=== PATIENT | male | born 1975 | race Caucasian/White ===

== ENCOUNTER → 2017-11-30 09:22 | Outpatient (CLI) | payer BC, MEDICAID, SELFPAY ==
[2017-11-30 10:33] LABS: Anion Gap 5 (5-15); BUN 14 mg/dL (7-18); BUN/Creat Ratio 13.3 RATIO (10-20); Calcium,Total 8.3 mg/dL (8.5-10.1); Chloride 111 mmol/L (98-107); Cholesterol 186 mg/dL (200); Creatinine, Serum 1.05 mg/dL (0.70-1.30); EST Glomerular Filtration Rate 82 mL/min (>60); Est Glom Filt Rate - Afr Amer 99 mL/min (>60); Glucose 96 mg/dL (74-106); High Density Lipoprotein 41 mg/dL; Magnesium 1.9 mg/dL (1.6-2.6); Potassium 4.2 mmol/L (3.5-5.1); Sodium Level 140 mmol/L (136-145); T4 Free Direct 0.81 ng/dL (0.76-1.46); Thyroid Stim Hormone (TSH) 0.92 uIU/mL (0.358-3.74); Triglycerides 170 mg/dL; Very Low Density Lipoprotein 34 mg/dL (5-40)
== END ==
PROVIDERS: Family Provider Internal Medicine; PCP Internal Medicine; Visit Provider Internal Medicine
DX: I10 Essential (primary) hypertension (principal); R00.0 Tachycardia, unspecified; E87.8 Other disorders of electrolyte and fluid balance, not elsewhere classified
CPT/HCPCS: 36415; 80048; 80061; 83735; 84439; 84443

== ENCOUNTER → 2018-02-04 16:07 | Outpatient (CLI) | payer BC, MEDICAID, SELFPAY ==
[2018-02-04 17:39] LABS: Anion Gap 8 (5-15); BUN 26 mg/dL (7-18); BUN/Creat Ratio 18.4 RATIO (10-20); Chloride 106 mmol/L (98-107); Creatinine, Serum 1.41 mg/dL (0.70-1.30); EST Glomerular Filtration Rate 58 mL/min (>60); Est Glom Filt Rate - Afr Amer 71 mL/min (>60); Glucose 108 mg/dL (74-106); Potassium 3.8 mmol/L (3.5-5.1); Sodium Level 140 mmol/L (136-145)
== END ==
PROVIDERS: Family Provider Internal Medicine; PCP Internal Medicine; Visit Provider Internal Medicine
DX: I10 Essential (primary) hypertension (principal)
CPT/HCPCS: 36415; 80048

== ENCOUNTER → 2018-02-26 11:17 | Outpatient (CLI) | payer MEDICAID, SELFPAY ==
[2018-02-26 12:28] LABS: Anion Gap 8 (5-15); BUN 22 mg/dL (7-18); BUN/Creat Ratio 18.2 RATIO (10-20); Calcium,Total 9.3 mg/dL (8.5-10.1); Chloride 108 mmol/L (98-107); Creatinine, Serum 1.21 mg/dL (0.70-1.30); EST Glomerular Filtration Rate 70 mL/min (>60); Est Glom Filt Rate - Afr Amer 84 mL/min (>60); Glucose 91 mg/dL (74-106); Potassium 4.3 mmol/L (3.5-5.1); Sodium Level 142 mmol/L (136-145)
== END ==
PROVIDERS: Family Provider Internal Medicine; PCP Internal Medicine; Visit Provider Nurse Practitioner Family
DX: I10 Essential (primary) hypertension (principal)
CPT/HCPCS: 36415; 80048

== ENCOUNTER → 2018-03-12 08:19 | Outpatient (CLI) | payer MEDICAID, SELFPAY ==
[2018-03-12 09:11] LABS: Hemoglobin A1c 6.2 % (4.2-6.3)
== END ==
PROVIDERS: Family Provider Internal Medicine; PCP Internal Medicine; Visit Provider Internal Medicine
DX: R73.03 Prediabetes (principal)
CPT/HCPCS: 36415; 83036

== ENCOUNTER → 2018-03-20 10:15 | Outpatient (CLI) | payer MEDICAID, SELFPAY ==
[2018-03-20 11:10] LABS: Absolute Lymphocyte Count 1.86 X10^3/ul (0.83-4.51); Absolute Neutrophil Count 3.6 X10^3/uL (2.0-7.7); Basophil# 0.05 X10^3/uL; Basophil% 0.8 % (0-1); Eosinophil# 0.22 X10^3/uL; Eosinophils% 3.4 % (0-5); Hematocrit 45.4 % (40-54); Hemoglobin 15.6 g/dl (13.0-16.5); Lymphocyte # 1.86 X10^3/ul (4.0); Lymphocyte % 28.8 % (19-41); Mean Corp Hgb Conc 34.4 g/gl (32-36); Mean Corpuscular Hgb 29.4 pg (27.0-32.0); Mean Corpuscular Volume 85.7 fL (80-94); Mean Platelet Vol. 10.9 fl (6.2-12.0); Monocyte# 0.69 X10^3/uL; Monocyte% 10.7 % (0-10); Neutrophil % 55.8 % (47-70); Platelet Count 273 K/mm3 (150-450); RBC Distribution Width CV 13.3 % (11.6-14.6); RBC Distribution Width SD 41.5 fl (35.1-43.9); White Blood Count 6.5 K/mm3 (4.4-11.0)
[2018-03-20 11:14] LABS: POSITIVE COUNT NO; POSITIVE DIFFERENTIAL NO; POSITIVE MORPHOLOGY NO
[2018-03-20 11:44] LABS: Ferritin 149 ng/mL (26-388); Iron 96 ug/dL (65-175); Iron Binding Capacity,Total 324 ug/dL (250-450)
== END ==
PROVIDERS: Family Provider Internal Medicine; PCP Internal Medicine; Visit Provider Internal Medicine
DX: G25.81 Restless legs syndrome (principal)
CPT/HCPCS: 36415; 82728; 83540; 83550; 85025

== ENCOUNTER 2018-10-30 17:41 | Emergency (ER) | payer OTHER, MEDICAID, SELFPAY ==
[2018-10-30 17:42] VITALS: BP 150/90; PULSE 104; RESP 16; TEMP 36.7; O2SAT 95; BMI 32.5
--- NOTE | 2018-10-30 18:10 | RAD_ITS ---
STUDY: X-RAY - LEFT FOOT CLINICAL: Male, 43 years old. Injury TECHNIQUE: 3 view(s) of the foot. COMPARISON: None. FINDINGS: Normal talus, calcaneus, and tarsal bones. Plantar calcaneal spur. Normal visualized subtalar, talonavicular, calcaneocuboid, tarsal and tarsometatarsal articulations. Normal metatarsi. Normal metatarsophalangeal joint of the great toe. Normal tibial and fibular sesamoid bones. Normal interphalangeal joint of the great toe. Normal phalanges of the great toe. Normal second through fifth metatarsophalangeal joints. Normal interphalangeal joints and phalanges of the lesser toes. The soft tissue structures are unremarkable. RAD/Foot min 3 Views IMPRESSION: No acute bony injury of the foot. Electronically Signed: Naif Delgado DO at 18:26 EDT Tel [phone], Service support ,
[2018-10-30] MEDS: Ibuprofen 400 MG Tablet 800 MG PO (18:11)
--- NOTE | 2018-10-30 18:28 | ED.DCSUM_ITS ---
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 Patient reports that he was at work walking when he stepped on a rock and had a forced dorsiflexion and inversion injury of his left foot. States that he has a sharp pain that is 8 out of 10 with walking and 4-10 at rest. Denies any paresthesias distally. He denies any other injuries. Physical Examination: Vitals: Stable. Afebrile. General: Well-nourished and well-developed. Head: Normocephalic atraumatic. Neck: Supple, no lymphadenopathy. No JVD. Nontender. Cardiovascular: Regular rate and rhythm. No murmurs. Respiratory: No respiratory distress. Clear to auscultation bilaterally. Abdominal: Soft, nontender, nondistended, normal bowel sounds. No guarding, rebound, or peritoneal signs. Back: Nontender. Extremities: No tenderness palpation over the medial or lateral malleoli. No pain over the proximal fibula. He does have moderate tenderness palpation over the base the fifth metatarsal. There is mild diffuse tenderness palpation over the second, third, and fourth metatarsals distally. There is no soft tissue swelling. He has a 2+ dorsalis pedis pulse. Normal sensation light touch. Skin: Normal color, no rash. Neurologic: Alert and oriented ?3. Cranial nerves II through XII are intact. Normal strength and sensation. Psych: Normal affect. Test Results: X-ray is negative. Emergency Department Course and Treatment: Patient was treated with ibuprofen and placed in a walking boot. Treatment Plan: Patient be discharged with limited walking at work. Follow-up with [facility] in 1 week for another exam. Return to the emergency department for any worsening symptoms. Disposition: To home in improved and stable condition. Impression: 1. Left foot sprain. This note was generated with [employer] dictation software. It may contain incorrect words, spelling, and punctuation that were not noted in review of the chart prior to signing ED Disposition - Plan for ED Patient: Disposition: Home or Assisted Living Instructions: ED Sprain Foot Referrals: [facility] [GROUP OF PHYSICIANS] - 1 Week
[2018-10-30 18:53] VITALS: PULSE 85; RESP 17; O2SAT 100
== END 2018-10-30 18:54 | disposition home or self-care (01) ==
LOC: ED 18:11
PROVIDERS: Emergency Provider Emergency Medicine; Family Provider Internal Medicine; PCP Internal Medicine
DX: S93.602A Unspecified sprain of left foot, initial encounter (principal); I10 Essential (primary) hypertension; Z79.82 Long term (current) use of aspirin; Z79.84 Long term (current) use of oral hypoglycemic drugs; Z79.899 Other long term (current) drug therapy; X50.1XXA Overexertion from prolonged static or awkward postures, initial encounter; Y93.01 Activity, walking, marching and hiking; Y92.89 Other specified places as the place of occurrence of the external cause; Y99.0 Civilian activity done for income or pay
CPT/HCPCS: 73630; 99283; A4216

== ENCOUNTER → 2019-04-02 | Outpatient (CLI) | payer MEDICAID, SELFPAY ==
[2019-04-01 16:10] VITALS: BMI 34.0
--- NOTE | 2019-04-02 09:00 | RAD_ITS ---
STUDY: X-RAY - SACRUM/COCCYX REASON FOR EXAM: Male, 44 years old. Pain in sacrum and coccyx TECHNIQUE: 3 view(s) of the sacrum and coccyx were obtained. COMPARISON: None. FINDINGS: There is degenerative arthrosis of the bilateral sacroiliac joints. Intact visualized sacral ala and fused sacral bodies. Unremarkable sacrococcygeal junction with a normal angulation. Intact coccygeal segments. The presacral soft tissue structures are unremarkable. There is no demonstrated fracture. There is no demonstrated destructive osseous process. RAD/Sacrum-Coccyx min 2 Views IMPRESSION: Mild osteoarthritis of bilateral SI joints. No acute displaced fracture, or traumatic subluxation based on current assessment.. Electronically Signed: Shaheen Heart MD at 11:32 EDT Tel [phone], Service support ,
[2019-04-02 09:06] LABS: Absolute Lymphocyte Count 1.72 X10^3/uL (0.83-4.51); Absolute Neutrophil Count 3.7 X10^3/uL (2.0-7.7); Basophil# 0.06 X10^3/uL; Basophil% 0.9 % (0-1); Eosinophil# 0.16 X10^3/uL; Eosinophils% 2.5 % (0-5); Hematocrit 45.4 % (40-54); Lymphocyte # 1.72 X10^3/ul (4.0); Lymphocyte % 26.8 % (19-41); Mean Corpuscular Hgb 29.1 pg (27.0-32.0); Mean Platelet Vol. 10.4 fl (6.2-12.0); Monocyte# 0.75 X10^3/uL; Monocyte% 11.7 % (0-10); NRBC Flagged by Analyzer 0 % (0-5); Neutrophil # 3.72 X10^3/uL (2.7-7.7); Neutrophil % 57.9 % (47-70); Platelet Count 267 K/mm3 (150-450); RBC Distribution Width CV 13.1 % (11.6-14.6); RBC Distribution Width SD 42.3 fl (35.1-43.9); Red Blood Count 5.16 M/mm3 (4.6-6.2); White Blood Count 6.4 K/mm3 (4.4-11.0)
[2019-04-02 09:37] LABS: AST(SGOT) 24 U/L (15-37); Alanine Aminotransfer ALT/SGPT 41 U/L (16-61); Albumin, Serum 3.8 g/dL (3.2-5.0); Alkaline Phosphatase 94 U/L (45-117); Anion Gap 7 (5-15); BUN 18 mg/dL (7-18); BUN/Creat Ratio 15.8 RATIO (10-20); Calcium,Total 8.7 mg/dL (8.5-10.1); Chloride 111 mmol/L (98-107); Cholesterol 206 mg/dL (200); Creatinine, Serum 1.14 mg/dL (0.70-1.30); EST Glomerular Filtration Rate 74 mL/min (>60); Est Glom Filt Rate - Afr Amer 90 mL/min (>60); Globulin 3.7 g/dL (2.2-4.2); Glucose 96 mg/dL (74-106); High Density Lipoprotein 46 mg/dL; Potassium 4.4 mmol/L (3.5-5.1); Protein, Total 7.5 g/dL (6.4-8.2); Sodium Level 141 mmol/L (136-145); Triglycerides 118 mg/dL; Very Low Density Lipoprotein 24 mg/dL (5-40)
== END | disposition home or self-care (01) ==
LOC: LAB 08:49
PROVIDERS: Family Provider Internal Medicine; PCP Internal Medicine; Referring Provider Internal Medicine; Visit Provider Internal Medicine
DX: M54.9 Dorsalgia, unspecified (principal); E78.5 Hyperlipidemia, unspecified; I10 Essential (primary) hypertension
CPT/HCPCS: 36415; 72220; 80053; 80061; 85025

== ENCOUNTER 2019-05-24 20:45 | Emergency (ER) | payer MEDICAID, SELFPAY ==
[2019-04-01 16:10] VITALS: BMI 34.0
[2019-05-24 20:46] VITALS: BP 152/93; PULSE 98; RESP 16; TEMP 36.7; O2SAT 96; BMI 34.2
--- NOTE | 2019-05-24 21:04 | RAD_ITS ---
STUDY: X-RAY - BILATERAL RIBS WITH CHEST REASON FOR EXAM: Male, 44 years old. Right upper rib injury. TECHNIQUE - RIBS: 4 view(s) of the ribs. TECHNIQUE - CHEST: Single PA view of the chest. COMPARISON: None. FINDINGS: Cardiac silhouette unremarkable. Pulmonary vascularity unremarkable. Aorta unremarkable. No focal patchy airspace opacities. No pleural effusions. Minimal atelectasis/scar. Constipation. No acute displaced fracture or dislocation. No pneumothorax. RAD/Ribs Oleksandr Min 4V w/PA Chest IMPRESSION: No acute displaced fracture No acute cardiopulmonary findings Electronically Signed: Clint Putnam DO at 22:23 EDT Tel , Service support ,
--- NOTE | 2019-05-24 22:00 | ED.DCSUM_ITS ---
- ER Visit Summary Date of Service: 05/24/19 Chief Complaint: Right rib pain History of Present Illness: The patient is a 44 M who presents with right rib pain that began today. Patient states he was playing football when he fell onto his right side. Patient states his right elbow was tucked under his arm and his chest landed on his forearm and elbow. Patient denies any snapping or popping sensation. Patient states the pain is worse with certain movements and with walking. Patient states the pain improves with rest. Patient describes the pain as a constant aching but sharp at times. Patient denies any head injury or loss of consciousness. Patient denies any paresthesias or weakness. Patient denies any other injuries. Patient denies any shortness of breath. Physical Examination: Vital signs are stable. Patient is afebrile. Patient is in no acute distress. Oral mucosa is pink and moist. Neck is supple. Trachea is midline. Is no JVD noted. Heart was regular rate and rhythm. Lungs are clear and equal bilaterally. There is tenderness over the right fourth through eighth ribs. There is no bony crepitance or step-off noted. Abdomen is soft. Bowel sounds are normal. There is no tenderness. Cranial nerves II through XII are intact. There are no focal motor or sensory deficits noted. Test Results: X-rays of the ribs were obtained. There is no acute fracture. These were interpreted by the radiologist and reviewed by myself. Emergency Department Course and Treatment: Patient was instructed to use Tylenol or ibuprofen as needed for pain. Patient was instructed to take 10-15 deep breaths every hour while awake to prevent atelectasis and pneumonia. Patient was instructed to use ice to the area. Patient was instructed to follow-up with his primary care physician in 5 to 7 days. Patient understood and was agreeable with the plan. All questions were answered. Disposition: Discharge home Impression: Right chest wall contusion This note was generated with [employer] dictation software. It may contain incorrect words, spelling, and punctuation that were not noted in review of the chart prior to signing ED Disposition - Plan for ED Patient: Disposition: Home or Assisted Living Diagnosis: Contusion of right chest wall Instructions: Chest Wall Contusion Referrals: Sanjiv Singleton MD [Primary Care Provider] - 5-7 Days
[2019-05-24 22:44] VITALS: BP 156/104; PULSE 90; RESP 20; O2SAT 97
== END 2019-05-24 22:45 | disposition home or self-care (01) ==
PROVIDERS: Emergency Provider Emergency Medicine; Family Provider Internal Medicine; PCP Internal Medicine
DX: S20.211A Contusion of right front wall of thorax, initial encounter (principal); W19.XXXA Unspecified fall, initial encounter; Y93.61 Activity, american tackle football; Y92.9 Unspecified place or not applicable; I10 Essential (primary) hypertension; G25.81 Restless legs syndrome; Z79.82 Long term (current) use of aspirin; Z79.899 Other long term (current) drug therapy
CPT/HCPCS: 71111; 99282

== ENCOUNTER → 2019-06-18 17:23 | Outpatient (CLI) | payer MEDICAID, SELFPAY ==
[2019-06-11 17:27] VITALS: BMI 33.5
--- NOTE | 2019-06-18 17:25 | RAD_ITS ---
STUDY: X-RAY - RIGHT FOOT CLINICAL: Male, 44 years old. Dorsal pain for 2 weeks. TECHNIQUE: 2 view(s) of the foot. COMPARISON: None. FINDINGS: Normal talus, calcaneus, and tarsal bones. Normal visualized subtalar, talonavicular, calcaneocuboid, tarsal and tarsometatarsal articulations. Normal metatarsi. There is degenerative arthrosis of the metatarsophalangeal joint of the hallux with a hallux valgus deformity. Normal tibial and fibular sesamoid bones. Normal interphalangeal joint of the great toe. Normal phalanges of the great toe. Normal second through fifth metatarsophalangeal joints. Question mild lateral subluxation of the second distal interphalangeal joint. Otherwise normal interphalangeal joints and phalanges of the lesser toes. The soft tissue structures are unremarkable. RAD/Foot 2 Views IMPRESSION: Degenerative changes of first metatarsal-phalangeal joint. Electronically Signed: Aj Kovacs DO at 18:51 EST Tel [phone], Service support ,
== END ==
PROVIDERS: Family Provider Internal Medicine; PCP Internal Medicine; Referring Provider Internal Medicine; Visit Provider Internal Medicine
DX: M79.671 Pain in right foot (principal); M54.9 Dorsalgia, unspecified
CPT/HCPCS: 73620; 97110

== ENCOUNTER → 2019-07-15 12:53 | Outpatient (CLI) | payer MEDICAID, SELFPAY ==
[2019-07-02 09:33] VITALS: BMI 33.6
--- NOTE | 2019-07-15 12:55 | ECHOCS_ITS ---
Reason For Study: ARRHYTHMIA Procedure This was a 2D Doppler, Color Flow transthoracic echocardiogram. The study was technically difficult. Due to body habitus. Contrast injection was performed. Exam performed in department. Left Ventricle Normal LV size. Left ventricular systolic function is normal. The estimated ejection fraction is 65 %. No evidence for diastolic dysfunction. No regional wall motion abnormalities noted. Right Ventricle Normal RV size. Normal systolic function. Atria The left atrium is mildly enlarged. Normal right atrium. No doppler evidence for ASD. Mitral Valve There is no mitral annular calcification. Normal mitral valve. Trivial mitral valve insufficiency. Tricuspid Valve Normal tricuspid valve. Trivial tricuspid valve insufficiency. Right ventricular systolic pressure estimated to be 27 mmHg. Aortic Valve Trisinus/trileaflet aortic valve. Normal aortic valve. Pulmonic Valve The pulmonic valve is not well visualized. Great Vessels Normal sized aortic root. Pericardium/Pleural No pericardial effusion. Medication 22 gauge I.V. with prn adaptor inserted into right arm. Diluted definity 3.0ml given slow IV push to enhance endocardial definition. MMode/2D Measurements & Calculations LVIDd: 4.2 cm IVSd: 1.2 cm Ao root diam: 3.2 cm LVIDs: 2.6 cm LVPWd: 1.1 cm RVDd: 3.7 cm FS: 36.7 % LAV(MOD-bp): 64.1 ml LA A4 area: 21.4 cm2 LA dimension(2D): 4.1 cm LAV(MOD-bp) Indexed: 25.7 ml/m2 LAV(MOD-sp2): 65.4 ml LAV(MOD-sp4): 64.6 ml RA A4 area: 19.2 cm2 Time Measurements MV dec time: 0.19 sec Doppler Measurements & Calculations MV E max bird: 83.7 cm/sec Lat Peak E' Bird: 10.0 cm/sec Med Peak E' Bird: 6.3 cm/sec MV A max bird: 71.9 cm/sec E/E' lat: 8.4 E/E' med: 13.2 MV E/A: 1.2 Ao V2 max: 142.9 cm/sec LV V1 max: 104.3 cm/sec PA V2 max: 94.1 cm/sec Ao max P.2 mmHg LV V1 max P.4 mmHg TR max bird: 246.3 cm/sec TR max P.3 mmHg Interpretation Summary The study was technically difficult. Contrast injection was performed. Left ventricular systolic function is normal. The estimated ejection fraction is 65 %. The left atrium is mildly enlarged. Trivial mitral valve insufficiency. Trivial tricuspid valve insufficiency. Right ventricular systolic pressure estimated to be 27 mmHg. No evidence for diastolic dysfunction. Ordering Physician: Galileo Samaniego Referring Physician: Sanjiv Singleton Performed By: Madelyn Bowling, OLIVIA, RVT
== END ==
PROVIDERS: Family Provider Internal Medicine; PCP Internal Medicine; Referring Provider Internal Medicine Cardiovascular Disease; Visit Provider Internal Medicine Cardiovascular Disease
DX: R00.2 Palpitations (principal); R00.0 Tachycardia, unspecified; E78.2 Mixed hyperlipidemia; I10 Essential (primary) hypertension
CPT/HCPCS: 93225; 93226; 93306; Q9957; A4216; C8929

== ENCOUNTER 2019-07-28 16:00 | Outpatient (RCR) | payer MEDICAID, SELFPAY ==
[2019-04-01 16:10] VITALS: BMI 34.0
[2019-06-03 14:27] VITALS: BMI 34.2
--- NOTE | 2019-06-04 18:16 | HP.PTEVAL ---
Patient's Visit Information PASTOR JOHNSNO is a 44 year old M referred to Physical Therapy by Sanjiv Singleton MD with a diagnosis of DORSALGIA. Date of Evaluation: 06/04/19 Physical Therapist: Tee Anderson PT, Cert MDT, OCS - Visit Plan Frequency: 2x /Week Duration: 4 Weeks Plan: PT INTERVENTION MIGUEL ANGEL EX'S ,POSTURAL EX'S ,PROGRESS TO DLS, LE FLEXABLITY MODALTIES PRN - Subjective Findings: This 44 y/o male presents to physical therapy with back pain.Patient has back pain several months back in January. Patient developed pain symmrical LB region. Seen Dr joshua ennis.Patient had x-rays DDD. Aggravating factors sitting,end of day bending. Alleveting factors walking ,standing. Denies parathesia/tingling. Coughing/sneezing -. Bowel/bladder -. No trauma -.No prior treatment. Patient sleeping okay. Patient affects job demands,housework chores ,ADL'S, Patient intense with deriving any period of time. Patient pain affects QOL. SOCIAL: . VOCATION: [employer] - Pain Bilateral Back Pain Intensity (Out of 10): 2 Pain Intensity Range: 10 - Objective POSTURE: mild foward posture. GAIT: reciprocal pattern. NEURO: denies parathesia/tingling ,reflexes L3-4,L4-5,L5-S1 2/3. STMMTRIES: align. MMT: quads/hams/hip/ankle 4/5. LUMBAR ROM: flexion min loss ,extension min loss .side glides min loss. FLEXABLITY: hams mild tight - Special Tests L/S Slump test left side: Negative L/S Slump test right side: Negative L/S Left Straight Leg Raise: Negative L/S Right Straight Leg Raise: Negative Lumbar Standing: Flexion - Mechanical Response: No effect Lumbar Standing: Flexion - Symptoms During Testing: No effect Lumbar Standing: Flexion - Symptoms After Testing: No effect Lumbar Standing: Extension - Mechanical Response: No effect Lumbar Standing: Extension - Symptoms During Testing: Decreases Lumbar Standing: Extension - Symptoms After Testing: Better Lumbar Standing: Right Side Glides - Mechanical Response: No effect Lumbar Standing: Right Side Walton - Symptoms During Testing: No effect Lumbar Standing: Right Side Walton - Symptoms After Testing: No effect Lumbar Standing: Left Side Walton - Mechanical Response: No effect Lumbar Standing: Left Side Walton - Symptoms During Testing: No effect Lumbar Standing: Left Side Walton - Symptoms After Testing: No effect Lumbar Lying: Flexion - Mechanical Response: No effect Lumbar Lying: Flexion - Symptoms During Testing: Increases Lumbar Lying: Flexion - Symptoms After Testing: Worse Lumbar Lying: Extension - Mechanical Response: No effect Lumbar Lying: Extension - Symptoms During Testing: Decreases Lumbar Lying: Extension - Symptoms After Testing: Better - Goals Goal 1:: Independant with HEP. Goal Time Frame: 4-6 Weeks Goal 2:: Improve posture/body mechanics with job demands. Goal Time Frame: 4-6 Weeks Goal 3:: Patient to decrease low bcak pain by 70 % or > to improve QOL. Goal Time Frame: 4-6 Weeks Goal 4:: Patient to increase lumbar ROM for function of recovery. Goal Time Frame: 4-6 Weeks Goal 5:: Patient to be d/c to prophalaxis Goal Time Frame: 4-6 Weeks Goal 6:: Pateint to improve back owestry scor by 5 points vor > to improve QOL. Goal Time Frame: 4-6 Weeks - Rehabilitation Potential Physical Therapy Diagnosis: This patient has possible central derrangement with pain affects sitting ,driving,elevation from chair correction of posture better,and extension thus benofit from skilled PT. Rehabilitation Potential: Good - Anticipated Interventions Patient/Client Instruction: Educate patient on: Condition, Plan of Care For the Purpose of:: To decrease pain, To increase ROM, To improve muscle performance and motor function, To improve ability to perform ADL's, To increase tolerance to activity/condition/position, To improve ability of physical actions for home/community/work/leisure, To improve health of tissue, To decrease soft tissue restriction, To reduce risk of recurrence, To improve ability to perform tasks related to life management Therapeutic Exercise to Include: Strength training, Body mechanics, Postural training, Flexibilty training, Dynamic Lumbar Stabilization, Miguel Angel Exercises For the Purpose of:: To decrease pain, To increase ROM, To improve muscle performance and motor function, To improve ability to perform ADL's, To increase tolerance to activity/condition/position, To improve ability of physical actions for home/community/work/leisure, To improve health of tissue, To decrease soft tissue restriction, To increase flexibility/ROM, To reduce risk of recurrence Manual Therapy Techniques to Include: Mobilization Comment: lumbar For the Purpose of:: To decrease pain, To increase ROM TENS: Yes IF ES: Yes Cryotherapy (ice pack, ice massage): Yes Ultrasound (thermal/non thermal): Yes For the Purpose of:: To decrease pain, To increase ROM, To improve muscle performance and motor function, To improve ability to perform ADL's, To improve health of tissue, To decrease soft tissue restriction Thank you for the opportunity to evaluate your patient. For Medicare and Medicare HMO plans, please review the plan of care and approve it. It will need to be FAXED BACK to us at [phone] for Medicare purposes. For Medicare only, by signing this I certify the plan of care. Please let me know if there are questions or concerns regarding this plan of care. Physician Signature: Date:
--- NOTE | 2019-11-11 15:46 | HP.PT.NRP ---
PASTOR JOHNSON was seen in my office for initial evaluation on 06/04/19. The following Plan of Care was established for this patient: Initial Frequency: 2x /Week Initial Duration: 4 Weeks Patient/Client Instruction: Educate patient on: Condition, Plan of Care For the Purpose of:: To decrease pain, To increase ROM, To improve muscle performance and motor function, To improve ability to perform ADL's, To increase tolerance to activity/condition/position, To improve ability of physical actions for home/community/work/leisure, To improve health of tissue, To decrease soft tissue restriction, To reduce risk of recurrence, To improve ability to perform tasks related to life management Therapeutic Exercise to Include: Strength training, Body mechanics, Postural training, Flexibilty training, Dynamic Lumbar Stabilization, Loyd Exercises For the Purpose of:: To decrease pain, To increase ROM, To improve muscle performance and motor function, To improve ability to perform ADL's, To increase tolerance to activity/condition/position, To improve ability of physical actions for home/community/work/leisure, To improve health of tissue, To decrease soft tissue restriction, To increase flexibility/ROM, To reduce risk of recurrence Manual Therapy Techniques to Include: Mobilization Comment: lumbar For the Purpose of:: To decrease pain, To increase ROM TENS: Yes IF ES: Yes Cryotherapy (ice pack, ice massage): Yes Ultrasound (thermal/non thermal): Yes For the Purpose of:: To decrease pain, To increase ROM, To improve muscle performance and motor function, To improve ability to perform ADL's, To improve health of tissue, To decrease soft tissue restriction This patient was last seen in our office 07/28/20. Pertinent comments regarding their Physical therapy will appear below: This patient seen for dorsalgia back pain focusing DLS ,postural ex's ,BLE flexablity. Patient doing better . At this point I will be discontinuing this patient from physical therapy. I would be happy to see this patient again in the future if found appropriate by the physician. Thank you! Tee Anderson, PT, Cert MDT, OCS
== END 2019-07-28 19:00 | disposition home or self-care (01) ==
LOC: PT 16:00
PROVIDERS: Family Provider Internal Medicine; PCP Internal Medicine; Referring Provider Internal Medicine; Visit Provider Internal Medicine
DX: M54.9 Dorsalgia, unspecified (principal)
CPT/HCPCS: 97110; 97161; 97530

== ENCOUNTER → 2019-09-11 13:13 | Outpatient (CLI) | payer MEDICAID, SELFPAY ==
[2019-08-26 15:52] VITALS: BMI 34.2
[2019-09-03 16:55] VITALS: BMI 33.8
--- NOTE | 2019-09-11 13:14 | STEWCON_ITS ---
Reason For Study: DYSPNEA/SOB Stress Results Protocol: Rao Protocol WITH DEFINITY Maximum Predicted HR: 176 bpm Target HR: 150 bpm % Maximum Predicted HR: 88 % DurationHeart Rate Stage (mm:ss) (bpm) BP Comment BASELINE 81 132/78 STAGE 1 3:00 103 140/98 STAGE 2 3:00 115 152/82 STAGE 3 3:00 136 158/80 STAGE 4 1:30 155 / RECOVERY 107 144/845 CC DEFINITY Stress Duration: 10:30 mm:ss Maximum Stress HR: 155 bpm METS: 13 Baseline Echocardiogram Findings Stress Echo Wall motion Data Resting WM Intermediate WM Stress WM Resting Wall Motion Wall Motion Stress All segments Normal. All segments Hyperkinetic. Ejection Fraction 55 %. Ejection Fraction 70 %. Stress Results Heart rate response: Normal Blood pressure response: Normal resting blood pressure-appropriate response Arrhythmias: None Functional capacity: Good Stopped secondary to: Dyspnea. EKG Data The baseline ECG displays normal sinus rhythm. Peak exercise ECG: No obvious ECG changes. Symptoms with Stress No complaint of chest discomfort during exercise or recovery. Interpretation Summary Negative (Adequate) stress echocardiogram Negative (adequate (ECG exercise tolerance test Contrast injection performed Ordering Physician: Franklin Manjarrez Referring Physician: Franklin Manjarrez Performed By: Hannah Castaneda RDCS, RVT
== END ==
PROVIDERS: PCP Internal Medicine; Referring Provider Nurse Practitioner Family; Visit Provider Nurse Practitioner Family
DX: R06.09 Other forms of dyspnea (principal); I20.8 Other forms of angina pectoris; E66.9 Obesity, unspecified; R00.0 Tachycardia, unspecified; I49.9 Cardiac arrhythmia, unspecified; R73.03 Prediabetes; I10 Essential (primary) hypertension; E78.2 Mixed hyperlipidemia
CPT/HCPCS: 93017; 93350; Q9957; A4216; C8928

== ENCOUNTER → 2020-03-23 17:27 | Outpatient (CLI) | payer MEDICAID, SELFPAY ==
[2020-03-16 18:05] VITALS: BMI 33.6
[2020-03-23 18:21] LABS: Anion Gap 6 (5-15); BUN 28 mg/dL (7-18); BUN/Creat Ratio 21.7 RATIO (10-20); Calcium,Total 8.8 mg/dL (8.5-10.1); Chloride 107 mmol/L (98-107); Creatinine, Serum 1.29 mg/dL (0.70-1.30); EST Glomerular Filtration Rate 64 mL/min (>60); Est Glom Filt Rate - Afr Amer 78 mL/min (>60); Glucose 91 mg/dL (74-106); Potassium 3.9 mmol/L (3.5-5.1); Sodium Level 139 mmol/L (136-145)
== END ==
PROVIDERS: PCP Internal Medicine; Referring Provider Internal Medicine; Visit Provider Internal Medicine
DX: I10 Essential (primary) hypertension (principal)
CPT/HCPCS: 36415; 80048

== ENCOUNTER → 2020-04-27 12:52 | Outpatient (CLI) | payer MEDICAID, SELFPAY ==
[2020-04-22 15:28] VITALS: BMI 34.6
== END ==
PROVIDERS: PCP Internal Medicine; Referring Provider Internal Medicine Cardiovascular Disease; Visit Provider Internal Medicine Cardiovascular Disease
DX: R55 Syncope and collapse (principal); R00.0 Tachycardia, unspecified
CPT/HCPCS: 93225; 93226

== ENCOUNTER → 2020-10-13 17:30 | Outpatient (CLI) | payer MEDICAID, SELFPAY ==
[2020-10-13 16:05] VITALS: BMI 37.1
[2020-10-13 17:47] LABS: Absolute Lymphocyte Count 2.21 X10^3/uL (0.83-4.51); Absolute Neutrophil Count 4.8 X10^3/uL (2.0-7.7); Basophil# 0.09 X10^3/uL; Basophil% 1.1 % (0-1); Eosinophil# 0.24 X10^3/uL; Eosinophils% 2.9 % (0-5); Hematocrit 44.4 % (40-54); Hemoglobin 14.3 g/dL (13.0-16.5); Lymphocyte # 2.21 X10^3/ul (4.0); Lymphocyte % 26.7 % (19-41); Mean Corp Hgb Conc 32.2 g/dL (32-36); Mean Corpuscular Hgb 28.7 pg (27.0-32.0); Mean Platelet Vol. 10.4 fl (6.2-12.0); Monocyte% 10.9 % (0-10); NRBC Flagged by Analyzer 0 % (0-5); Platelet Count 265 K/mm3 (150-450); RBC Distribution Width CV 13.2 % (11.6-14.6); RBC Distribution Width SD 43.1 fl (35.1-43.9); Red Blood Count 4.99 M/mm3 (4.6-6.2); White Blood Count 8.3 K/mm3 (4.4-11.0)
[2020-10-13 18:24] LABS: AST(SGOT) 25 U/L (15-37); Alanine Aminotransfer ALT/SGPT 60 U/L (16-61); Albumin, Serum 3.7 g/dL (3.2-5.0); Alkaline Phosphatase 87 U/L (45-117); Anion Gap 4 (5-15); BUN 24 mg/dL (7-18); BUN/Creat Ratio 22.4 RATIO (10-20); Calcium,Total 8.7 mg/dL (8.5-10.1); Chloride 111 mmol/L (98-107); Cholesterol 146 mg/dL (200); Creatinine, Serum 1.07 mg/dL (0.70-1.30); EST Glomerular Filtration Rate 79 mL/min (>60); Est Glom Filt Rate - Afr Amer 96 mL/min (>60); Globulin 3.6 g/dL (2.2-4.2); Glucose 88 mg/dL (74-106); High Density Lipoprotein 36 mg/dL; Potassium 3.9 mmol/L (3.5-5.1); Protein, Total 7.3 g/dL (6.4-8.2); Sodium Level 141 mmol/L (136-145); Triglycerides 209 mg/dL; Uric Acid 5.9 mg/dL (3.5-7.2); Very Low Density Lipoprotein 42 mg/dL (5-40)
== END ==
PROVIDERS: PCP Internal Medicine; Referring Provider Internal Medicine; Visit Provider Internal Medicine
DX: I10 Essential (primary) hypertension (principal); M10.9 Gout, unspecified
CPT/HCPCS: 36415; 80053; 80061; 84550; 85025

== ENCOUNTER → 2020-10-28 | Outpatient (CLI) | payer MEDICAID, SELFPAY ==
[2020-06-23 16:52] VITALS: BMI 34.2
[2020-10-20 10:44] VITALS: BMI 35.9
--- NOTE | 2020-10-28 16:49 | CT_ITS ---
STUDY: CT PARANASAL SINUSES REASON FOR EXAM: Male, 45 years old. Sinusitis RADIATION DOSAGE (If Supplied By Facility): CTDIvol = ( 33.06 ) mGy, DLP = ( 829.72 ) mGycm TECHNIQUE: Axial CT images of the paranasal sinuses were obtained. Multiplanar reconstructions. The protocol utilizes one or more of the following dose reduction techniques: automated exposure control, adjustment of mA and/or kV according to patient size, and/or use of iterative reconstruction technique. reconstructed. Individualized dose optimization techniques were used for this CT. COMPARISON: 07/23/2017 FINDINGS: Post Surgical Changes: None. Frontal Sinus and Recess: Normal aeration without mucosal inflammatory disease. Ethmoidal Sinuses: Normal aeration without mucosal inflammatory disease. Maxillary Sinuses: Mucosal thickening of the floor the maxillary sinuses consistent with chronic sinusitis. Ostiomeatal Complex: Clear. Sphenoid Sinus: Normal aeration without mucosal inflammatory disease. Sphenoethmoidal Recess: Clear. Nasal Turbinate (Right): Middle Turbinate (Right): Normal. Middle Turbinate (Left): Vivi bullosa of the left middle turbinate. Inferior Turbinate (Right): Normal. Inferior Turbinate (Left): Normal. Nasal Septum: Midline. Nasal Airway: Clear. Cribiform Plate / Anterior Cranial Fossa: Normal. Orbits: Normal. CT/Sinus/Facial Bone IMPRESSION: Bilateral chronic maxillary sinusitis. Patent ostiomeatal units bilaterally. Electronically Signed: Rex Fontenot MD at 14:01 EDT Tel , Service support ,
== END | disposition home or self-care (01) ==
LOC: CT 16:48
PROVIDERS: PCP Internal Medicine; Referring Provider Otolaryngology; Visit Provider Otolaryngology
DX: J32.9 Chronic sinusitis, unspecified (principal)
CPT/HCPCS: 70486

== ENCOUNTER → 2020-10-31 13:19 | Outpatient (CLI) | payer MEDICAID, SELFPAY ==
[2020-10-20 10:44] VITALS: BMI 35.9
[2020-10-31 14:47] LABS: Uric Acid 6.2 mg/dL (3.5-7.2)
== END ==
PROVIDERS: PCP Internal Medicine; Referring Provider Internal Medicine; Visit Provider Internal Medicine
DX: M10.9 Gout, unspecified (principal)
CPT/HCPCS: 36415; 84550

== ENCOUNTER → 2020-11-24 16:32 | Outpatient (CLI) | payer MEDICAID, SELFPAY ==
[2020-11-07 16:07] VITALS: BMI 35.7
[2020-11-24 17:22] LABS: Anion Gap 2 (5-15); BUN 18 mg/dL (7-18); BUN/Creat Ratio 13.7 RATIO (10-20); Calcium,Total 9.3 mg/dL (8.5-10.1); Chloride 108 mmol/L (98-107); Creatinine, Serum 1.31 mg/dL (0.70-1.30); EST Glomerular Filtration Rate 63 mL/min (>60); Est Glom Filt Rate - Afr Amer 76 mL/min (>60); Glucose 79 mg/dL (74-106); Sodium Level 140 mmol/L (136-145)
== END ==
PROVIDERS: PCP Internal Medicine; Referring Provider Otolaryngology; Visit Provider Otolaryngology
DX: Z01.812 Encounter for preprocedural laboratory examination (principal)
CPT/HCPCS: 36415; 80048

== ENCOUNTER → 2020-11-25 15:54 | Outpatient (CLI) | payer MEDICAID, SELFPAY ==
[2020-11-07 16:07] VITALS: BMI 35.7
== END ==
PROVIDERS: PCP Internal Medicine; Referring Provider Otolaryngology; Visit Provider Otolaryngology
DX: Z03.818 Encounter for observation for suspected exposure to other biological agents ruled out (principal); Z11.59 Encounter for screening for other viral diseases
CPT/HCPCS: 87635; U0002

== ENCOUNTER → 2020-11-29 | Outpatient (CLI) | payer MEDICAID, SELFPAY ==
[2020-11-07 16:07] VITALS: BMI 35.7
--- NOTE | 2020-11-29 10:55 | NASAL_PTH ---
PATIENT: PASTOR JOHNSON LOC: [facility] U#:[id number] AGE/SX: 45/M ROOM: RE11/29/[address]: Dr. Kalen Combs MD : 1975 BED: DIS: 11/29/2020 SPEC #: [id number] RECD: 11/29/20 15:20 STATUS: ANGELA REQ #: [id number] JAY: 11/29/20 10:[address]: Kalen Combs DEPT: SURGICAL PATHOLOGY RECD BY: Maru Russell ENTERED: 11/30/20 10:51 SP TYPE: NASAL SPEC OTHR DR: Dr. Sanjiv Singleton MD [facility] Tissues: A - Ethmoid sinus, NOS B - Ethmoid sinus, NOS Procedures: Decalcification bone/plaque Surgery Specimen Level IV HEADER OPERATION: Functional endoscopic sinus surgery, septoplasty PRE-OP DIAGNOSIS: Deviated nasal septum, chronic sinusitis TISSUE SUBMITTED: A - Right sinus contents, B - Left sinus contents MICROSCOPIC DIAGNOSIS A. Right sinus contents: Fragments of respiratory mucosa with mild chronic inflammation, turbinate and bone. B. Left sinus contents: Fragments of respiratory mucosa with mild chronic inflammation, turbinate and bone. SJ:jade 12/02/2020 MICROSCOPIC DESCRIPTION Slides are reviewed. GROSS DESCRIPTION A - Received in fixative is one container labeled with the patient's name and designated right sinus contents. The specimen consists of multiple irregular fragments of bone and adherent pink-eagle soft tissue that in aggregate measure 5 x 3 x 0.2 cm. The specimen is totally submitted in two cassettes after decalcification. B - Received in fixative is one container labeled with the patient's name and designated right sinus contents. The specimen consists of multiple irregular fragments of bone and adherent pink-eagle soft tissue that in aggregate measure 5 x 3 x 0.2 cm. The specimen is totally submitted in two cassettes after decalcification. / AM:jade 11/30/20 TC:3 CPT: 55865 x2, 69560 x2
== END | disposition home or self-care (01) ==
LOC: LABSPEC 15:43
PROVIDERS: PCP Internal Medicine; Referring Provider Otolaryngology; Visit Provider Otolaryngology
DX: J34.2 Deviated nasal septum (principal); J32.8 Other chronic sinusitis
CPT/HCPCS: 88305; 88311

== ENCOUNTER → 2021-01-02 | Outpatient (CLI) | payer MEDICAID, SELFPAY ==
[2020-11-07 16:07] VITALS: BMI 35.7
== END | disposition home or self-care (01) ==
PROVIDERS: PCP Internal Medicine; Visit Provider Otolaryngology
DX: J32.9 Chronic sinusitis, unspecified (principal)
CPT/HCPCS: 87070; 87077; 87186; 87205

== ENCOUNTER 2021-05-23 18:03 | Emergency (ER) | payer MEDICAID, SELFPAY ==
[2021-05-23 18:04] VITALS: BP 129/95; PULSE 108; RESP 16; TEMP 36.7; O2SAT 96; BMI 35.2
--- NOTE | 2021-05-23 18:11 | EDS_ITS ---
HPI History of Present Illness Chief Complaint: Male Pain/Injury Narrative Narrative: 46-year-old male presenting with right testicular pain. He states this started today. He does note that he had some intermittent nausea over the last couple of days. He was seen by his primary care provider yesterday and he states that nothing was done. He was not prescribed nausea medicine. Today he noticed sharp pain in the back of his testicle and points to where his epididymis is. He denies dysuria or urethral drainage. He denies high risk sexual activity. He is and monogamous. Denies any trauma. He does not have any flank pain or hematuria [facility] Medical History Arrhythmia Essential hypertension Gout Mixed hyperlipidemia Obesity Prediabetes Tachycardia Home Medications aspirin 81 mg tablet,delayed release 81 mg PO QDAY #30 tab 10/11/17 [Rx Last Taken Unknown] multivitamin,my-rgtd-nidteavs 1 tab PO DAILY 03/16/20 [History Last Taken Unknown] omeprazole 40 mg capsule,delayed release 40 mg PO DAILY #90 cap 09/08/20 [Rx Last Taken Unknown] gabapentin 300 mg capsule 300 mg PO QHS #90 cap 10/04/20 [Rx Last Taken Unknown] pramipexole 0.5 mg tablet 0.75 mg PO QHS 90 Days #135 tab 10/14/20 [Rx Last Taken Unknown] allopurinol 100 mg tablet 300 mg PO DAILY 30 Days #90 tab 12/30/20 [Rx Last Taken Unknown] hydrochlorothiazide 25 mg tablet 25 mg PO QAM #30 tab 05/15/21 [Rx Last Taken Unknown] diltiazem HCl 300 mg capsule,24 hr,extended release 300 mg PO QDAY #90 cap 05/16/21 [Rx Last Taken Unknown] gabapentin 100 mg capsule 100 mg PO QHS #90 cap 05/22/21 [Rx Last Taken Unknown] lisinopril 40 mg tablet 40 mg PO QDAY #90 tab 05/22/21 [Rx Last Taken Unknown] meloxicam 15 mg tablet 15 mg PO DAILY #30 tab 05/22/21 [Rx Last Taken Unknown] methylprednisolone 4 mg tablets in a dose pack See Rx Instructions PO PER PKG DIR #21 tab 05/22/21 [Rx Last Taken Unknown] Allergy/AdvReac Type Severity Reaction Status Date / Time colchicine AdvReac Severe Emesis Verified 05/23/21 18:04 Family History Mother Hypertension Grandfather Heart disease Myocardial infarction, Onset Age: 62 Grandmother Hypertension Heart disease Father Liver failure Surgical History History of hernia repair History of sinus surgery Social History Smoking Status: Never smoker alcohol intake: current alcohol intake frequency: holidays/special occasions only substance use type: does not use caffeine: Yes Type: coffee Number of servings: 2 and tea Number of servings: 2 what type of physical activity do you participate in: walking frequency: 1-2 times per week ROS ROS ED Constitutional Constitutional ED: Denies chills or fever(s) Eyes Eyes: Denies blurry vision or change in vision ENT ENT ED: Denies rhinorrhea or sore throat Cardiovascular Cardiovascular: Denies chest pain or palpitations Respiratory/Chest Respiratory/Chest: Denies cough, dyspnea or sputum Gastrointestinal Gastrointestinal: Reports nausea; Denies constipation, diarrhea or vomiting Genitourinary Genitourinary ED: Reports other Details: Right testicular pain ; Denies dysuria or hematuria Musculoskeletal Musculoskeletal: Denies arthralgias, back pain or myalgias Integumentary Denies rash EXAM Physical Exam Const Vital Signs: 05/23/21 18:04 Temperature 98.1 F Temperature Source Temporal Pulse Rate 108 H Respiratory Rate 16 Blood Pressure 129/95 H Blood Pressure Mean 106 Pulse Ox 96 Oxygen Delivery Method Room Air Positive well nourished General Appearance ED: NAD HEENT Reports moist mucous membranes normocephalic and atraumatic Eyes PERRL and EOMs intact bilaterally Penis: normal penis and circumcised Meatus: meatus normal Scrotum: testes descended bilaterally and cremasteric reflex present; Negative for inguinal hernia, ecchymosis, edematous or scrotal swelling Testes: testicular lie normal; Negative for blue dot sign or high-riding testicle Back/Spine no CVA tenderness Neuro oriented x3 Sensorium / Orientation: alert Psych mental status grossly normal Skin Rashes: no rashes MDM MDM MDM Narrative Medical decision making narrative: Patient's urinalysis is negative for infection. He does not have any flank pain or abdominal pain. I did obtain a testicular ultrasound which shows bilateral complex hydroceles without acute findings otherwise of the testicles and specifically no torsion. It is read as testicular microcalcifications and surveillance is warranted there is an association with development of testicular carcinoma. I did tell the patient about this. He was given urology follow-up. He will also follow-up with his PCP outpatient. I do not believe he needs anything else emergent currently. Impression: 1. Testicular pain 2. Bilateral hydroceles 3. Testicular microcalcification Lab Data Attestation: I reviewed the patient's lab results. Labs: Laboratory Results - last 24 hr 05/23/21 19:00 Urine Color Yellow Urine Clarity Clear Urine pH 6.0 Ur Specific [place] 1.020 Urine Protein 15 H Urine Glucose (UA) Normal Urine Ketones Negative Urine Occult Blood 50 H Urine Nitrite Negative Urine Bilirubin Negative Urine Urobilinogen 1 H Ur Leukocyte Esterase Negative Urine RBC 0-5 SEEN Urine WBC 0 SEEN Ur Squamous Epith Cells 0 SEEN Urine Bacteria 0 SEEN Hyaline Casts 0-5 SEEN Urine Mucus 0 SEEN Radiography Diagnostic Testing: Clinical Impression(s) from Imaging Studies Testicular Ultrasound 05/23/21 18:11 IMPRESSION: Bilateral complex hydroceles. There are no acute findings of the bilateral testicles without evidence for torsion. Testicular microcalcifications are visualized. Surveillance is warranted. There is an association with development of testicular carcinoma Electronically Signed: Jacques Urena MD at 19:15 EDT , Service support , Discharge Plan Triage Chief Complaint: Male Pain/Injury ED Provider: Dino Dekcer Dx/Rx/DC Orders Instructions: ED Testicular Pain, Unclear Cause Prescriptions: No Action multivitamin,vc-vwrr-fpikvygu tablet 1 tab PO DAILY RF: 0 omeprazole 40 mg capsule,delayed release(DR/EC) 40 mg PO DAILY Qty: 90 RF: 2 hydrochlorothiazide 25 mg tablet 25 mg PO QAM Qty: 30 RF: 12 lisinopril 40 mg tablet 40 mg PO QDAY Qty: 90 RF: 1 gabapentin 100 mg capsule 100 mg PO QHS Qty: 90 RF: 1 methylprednisolone [Medrol (Isidoro)] 4 mg tablets,dose pack See Rx Instructions PO PER PKG DIR Qty: 21 RF: 0 meloxicam [Mobic] 15 mg tablet 15 mg PO DAILY Qty: 30 RF: 0 aspirin [Adult Aspirin Regimen] 81 mg tablet,delayed release (DR/EC) 81 mg PO QDAY Qty: 30 RF: 1 gabapentin 300 mg capsule 300 mg PO QHS Qty: 90 RF: 3 pramipexole 0.5 mg tablet 0.75 mg PO QHS 90 Days Qty: 135 RF: 3 allopurinol 100 mg tablet 300 mg PO DAILY 30 Days Qty: 90 RF: 3 diltiazem HCl 300 mg capsule,extended release 24 hr 300 mg PO QDAY Qty: 90 RF: 3 Primary Care Provider: Sanjiv Singleton Referrals: Sanjiv Singleton MD [Primary Care Provider] - Frederic Gardner MD [STAFF PHYSICIAN] - As Needed Disposition Disposition: Home, Self Care Discharge Date/Time: 05/23/21 20:09
--- NOTE | 2021-05-23 18:11 | US_ITS ---
STUDY: SCROTUM ULTRASOUND REASON FOR EXAM: Male, 46 years old. testicular pain- rt x 2 hours TECHNIQUE: Ultrasound evaluation of the scrotum was performed with color Doppler and static valdes-scale imaging. COMPARISON: None. FINDINGS: RIGHT TESTICLE INTRATESTICULAR: There is a normal size of the right testicle. The right testicle measures 4.3 x 2.8 cm. There is a homogenous echotexture. There is normal arterial and normal venous vascularity. There is demonstrated right testicular calcifications. EXTRATESTICULAR: The epididymis is normal in size. The epididymis head measures 1.4 cm. There is normal vascularity of the epididymis. There is no demonstrated epididymal cystic structure. There is a small hydrocele. This is septated. There is no demonstrated varicocele. There is no demonstrated extratesticular mass or cyst. LEFT TESTICLE INTRATESTICULAR: There is a normal size of the left testicle. The left testicle measures 4.3 x 2.3 cm. There is a homogenous echotexture. There is normal arterial and normal venous vascularity. There is demonstrated testicular calcifications. EXTRATESTICULAR: The epididymis is normal in size. The epididymis head measures 0.9 cm. There is normal vascularity of the epididymis. There is no demonstrated epididymal cystic structure. There is a small hydrocele. This has internal debris. There is no demonstrated varicocele. There is no demonstrated extratesticular mass or cyst. US/Testicular with Arterial Flow IMPRESSION: Bilateral complex hydroceles. There are no acute findings of the bilateral testicles without evidence for torsion. Testicular microcalcifications are visualized. Surveillance is warranted. There is an association with development of testicular carcinoma Electronically Signed: Jacques Urena MD at 19:15 EDT , Service support ,
[2021-05-23 19:08] LABS: Bacteria 0 SEEN /hpf (None Seen); Mucous, Urine 0 SEEN /hpf (<or=2+); Squamous Epithelial Cells - UA 0 SEEN /hpf (0-5); White Blood Cells 0 SEEN /hpf (0-5)
[2021-05-23 19:16] LABS: Color, Urine Yellow (Yellow); Glucose, Dipstick Normal (Normal); Ketone-Dipstick Negative (Negative); Leukocyte Esterase-Dipstick Negative /ul (Negative); Nitrite-Dipstick Negative (Negative); Occult Blood-Urine 50 /ul (Negative); Protein-Dipstick 15 mg/dl (Negative); Urine Bilirubin Dipstick Negative (Negative); Urine Clarity Clear (Clear); Urine Urobilinogen 1 mg/dl (Normal)
[2021-05-23 19:27] LABS: Hyaline Cast 0-5 SEEN /lpf (0-5)
[2021-05-23 19:29] LABS: Red Blood Cells-Urine 0-5 SEEN /hpf (0-5)
== END 2021-05-23 20:09 | disposition home or self-care (01) ==
PROVIDERS: Emergency Provider Student in an Organized Health Care Education/Training Program; PCP Internal Medicine
DX: N50.811 Right testicular pain (principal); N43.3 Hydrocele, unspecified; R93.811 Abnormal radiologic findings on diagnostic imaging of right testicle; I10 Essential (primary) hypertension; E78.2 Mixed hyperlipidemia; M10.9 Gout, unspecified; Z79.82 Long term (current) use of aspirin; Z79.899 Other long term (current) drug therapy
CPT/HCPCS: 76870; 81001; 93976; 99282

== ENCOUNTER → 2021-05-30 15:45 | Outpatient (CLI) | payer MEDICAID, SELFPAY ==
[2021-05-30 18:26] LABS: Anion Gap 9 (5-15); BUN 26 mg/dL (7-18); BUN/Creat Ratio 17.9 RATIO (10-20); Calcium,Total 9.1 mg/dL (8.5-10.1); Chloride 104 mmol/L (98-107); Creatinine, Serum 1.45 mg/dL (0.70-1.30); EST Glomerular Filtration Rate 56 mL/min (>60); Est Glom Filt Rate - Afr Amer 67 mL/min (>60); Glucose 91 mg/dL (74-106); Potassium 4.1 mmol/L (3.5-5.1); Sodium Level 140 mmol/L (136-145); Thyroid Stim Hormone (TSH) 1.72 uIU/mL (0.358-3.74)
[2021-06-05 02:06] LABS: Testosterone, Free 5.69 ng/dL (5.00-21.00)
[2021-06-05 08:29] LABS: Testosterone, % Free 2.42 % (1.50-4.20); Testosterone, Total 235 ng/dL (264-916)
== END ==
PROVIDERS: PCP Internal Medicine; Referring Provider Physician Assistant; Visit Provider Physician Assistant
DX: I10 Essential (primary) hypertension (principal); G47.30 Sleep apnea, unspecified; R68.82 Decreased libido
CPT/HCPCS: 36415; 80048; 84402; 84403; 84443

== ENCOUNTER 2021-07-12 15:06 | Outpatient (CLI) | payer MEDICAID, SELFPAY ==
[2021-07-12 15:29] VITALS: BP 120/54; PULSE 106; RESP 20; TEMP 37.4; O2SAT 95; BMI 36.2
[2021-07-12] MEDS: 0.9% Saline Lock 10 ML Syringe IV (15:30)
[2021-07-12 16:02] VITALS: BP 115/69; PULSE 102; RESP 18; TEMP 37.7; O2SAT 91
[2021-07-12 17:02] VITALS: BP 110/70; PULSE 99; RESP 18; TEMP 37.9; O2SAT 99
== END 2021-07-12 17:02 | disposition home or self-care (01) ==
LOC: MS3OUT 15:06 → MS3 15:08
PROVIDERS: PCP Internal Medicine; Referring Provider Nurse Practitioner Adult Health; Visit Provider Nurse Practitioner Adult Health
DX: Z23 Encounter for immunization (principal); U07.1 COVID-19
CPT/HCPCS: J7050; M0245; Q0245; A4216

== ENCOUNTER 2021-07-14 17:21 | Emergency (ER) | payer MEDICAID, SELFPAY ==
[2021-07-14 17:21] VITALS: BP 141/86; PULSE 93; RESP 16; TEMP 35.9; O2SAT 93; BMI 36.2
--- NOTE | 2021-07-14 17:30 | EKG12_ITS ---
Test Reason : INDEGESTION Blood Pressure : / mmHG Vent. Rate : 090 BPM Atrial Rate : 090 BPM P-R Int : 162 ms QRS Dur : 110 ms QT Int : 352 ms P-R-T Axes : 056 004 022 degrees QTc Int : 430 ms Normal sinus rhythm Inferior infarct , age undetermined Abnormal ECG Confirmed by FLORENCIO MACIEL, MARÍA ([id number]), market editor LESLEE EATON ([id number]) on 07/18/2021 10:06:26 AM Referred By: Ree Matos Confirmed By:MARÍA MATIAS MD
[2021-07-14 17:56] LABS: Absolute Lymphocyte Count 1.49 X10^3/uL (0.83-4.51); Absolute Neutrophil Count 2.1 X10^3/uL (2.0-7.7); Basophil# 0.02 X10^3/uL; Basophil% 0.5 % (0-1); Eosinophil# 0.02 X10^3/uL; Eosinophils% 0.5 % (0-5); Hemoglobin 14.5 g/dL (13.0-16.5); Lymphocyte # 1.49 X10^3/ul (0.83-4.51); Lymphocyte % 35.9 % (19-41); Mean Corpuscular Hgb 28.8 pg (27.0-32.0); Mean Corpuscular Volume 87.3 fL (80-94); Mean Platelet Vol. 10.3 fl (6.2-12.0); Monocyte# 0.53 X10^3/uL; Monocyte% 12.8 % (0-10); NRBC Flagged by Analyzer 0 % (0-5); Neutrophil # 2.06 X10^3/uL (2.7-7.7); Neutrophil % 49.6 % (47-70); Platelet Count 219 K/mm3 (150-450); RBC Distribution Width CV 13.4 % (11.6-14.6); Red Blood Count 5.04 M/mm3 (4.6-6.2); White Blood Count 4.2 K/mm3 (4.4-11.0)
[2021-07-14 18:09] LABS: Anion Gap 5 (5-15); BUN 14 mg/dL (7-18); BUN/Creat Ratio 13.2 RATIO (10-20); Calcium,Total 8.5 mg/dL (8.5-10.1); Chloride 101 mmol/L (98-107); Creatinine, Serum 1.06 mg/dL (0.70-1.30); EST Glomerular Filtration Rate 80 mL/min (>60); Est Glom Filt Rate - Afr Amer 97 mL/min (>60); Estimated Creatinine Clearance 104.07 ml/min; Glucose 97 mg/dL (74-106); Potassium 3.6 mmol/L (3.5-5.1); Sodium Level 136 mmol/L (136-145)
[2021-07-14 20:44] VITALS: BP 129/78; PULSE 97; RESP 20; TEMP 36.7; O2SAT 94
[2021-07-14] MEDS: Mag Hydrox/Al Hydrox/Simeth 30 ML UDC PO (20:50)
[2021-07-14 21:32] LABS: Bacteria 0 SEEN /hpf (None Seen); Mucous, Urine 0 SEEN /hpf (<or=2+); Squamous Epithelial Cells - UA 0 SEEN /hpf (0-5)
[2021-07-14 21:35] LABS: Color, Urine Yellow (Yellow); Glucose, Dipstick Normal (Normal); Ketone-Dipstick 15 mg/dl (Negative); Leukocyte Esterase-Dipstick Negative /ul (Negative); Nitrite-Dipstick Negative (Negative); Occult Blood-Urine 25 /ul (Negative); Protein-Dipstick 15 mg/dl (Negative); Urine Bilirubin Dipstick Negative (Negative); Urine Clarity Clear (Clear); Urine Urobilinogen 4 mg/dl (Normal)
[2021-07-14 21:51] LABS: Red Blood Cells-Urine 0-5 SEEN /hpf (0-5); White Blood Cells 0-5 SEEN /hpf (0-5)
[2021-07-14 21:52] LABS: AST(SGOT) 60 U/L (15-37); Alanine Aminotransfer ALT/SGPT 69 U/L (16-61); Alkaline Phosphatase 84 U/L (45-117); Globulin 4.3 g/dL (2.2-4.2); Protein, Total 7.3 g/dL (6.4-8.2)
[2021-07-14 21:57] LABS: Lipase 125 U/L (73-393)
[2021-07-14] MEDS: Ondansetron 4 MG/2 ML Vial IV (22:00)
[2021-07-14 22:11] VITALS: RESP 18
--- NOTE | 2021-07-14 22:13 | ED.VIS.GI ---
HPI HPI - GI History of Present Illness Chief Complaint: Abd Pain Narrative Narrative: 46-year-old male presenting with belching and dyspepsia. He states he currently has COVID-19 and is no longer having fevers, chills, body aches. He has decreased p.o. intake and states that he has dyspepsia. He took Tums for it this actually made it worse. He states that anytime he eats or drinks anything it immediately hurts in his epigastric region. He does periodically have nausea no history of pancreatitis. Patient states that from a respiratory standpoint he feels well. Denies chest pain. [facility] Medical History Arrhythmia COVID-19 Essential hypertension Gout Mixed hyperlipidemia Obesity Prediabetes Tachycardia Home Medications aspirin 81 mg tablet,delayed release 81 mg PO QDAY #30 tab 10/11/17 [Rx Last Taken Unknown] multivitamin,oo-xiut-dyykflyt 1 tab PO DAILY 03/16/20 [History Last Taken Unknown] gabapentin 300 mg capsule 300 mg PO QHS #90 cap 10/04/20 [Rx Last Taken Unknown] pramipexole 0.5 mg tablet 0.75 mg PO QHS 90 Days #135 tab 10/14/20 [Rx Last Taken Unknown] allopurinol 100 mg tablet 300 mg PO DAILY 30 Days #90 tab 12/30/20 [Rx Last Taken Unknown] hydrochlorothiazide 25 mg tablet 25 mg PO QAM #30 tab 05/15/21 [Rx Last Taken Unknown] diltiazem HCl 300 mg capsule,24 hr,extended release 300 mg PO QDAY #90 cap 05/16/21 [Rx Last Taken Unknown] gabapentin 100 mg capsule 100 mg PO QHS #90 cap 05/22/21 [Rx Last Taken Unknown] lisinopril 40 mg tablet 40 mg PO QDAY #90 tab 05/22/21 [Rx Last Taken Unknown] omeprazole 40 mg capsule,delayed release 40 mg PO DAILY #90 cap 06/01/21 [Rx Last Taken Unknown] acetaminophen 500 mg tablet 1,000 mg PO Q6H PRN #60 tab 06/19/21 [Rx Last Taken Unknown] diclofenac sodium 1 % topical gel 4 g TOPICAL .COMPLEX #100 g 06/20/21 [Rx Last Taken Unknown] ondansetron 4 mg disintegrating tablet 4 mg PO Q8H PRN #30 tab 07/11/21 [Rx Last Taken Unknown] ondansetron HCl [Zofran] 4 mg PO Q8H PRN #14 tab 07/14/21 [Rx Last Taken Unknown] sucralfate [Carafate] 10 ml PO BID PRN #400 ml 07/14/21 [Rx Last Taken Unknown] Allergy/AdvReac Type Severity Reaction Status Date / Time colchicine AdvReac Severe Emesis Verified 07/11/21 16:23 Family History Mother Hypertension Grandfather Heart disease Myocardial infarction, Onset Age: 62 Grandmother Hypertension Heart disease Father Liver failure Surgical History History of hernia repair History of sinus surgery Social History Smoking Status: Never smoker alcohol intake: current alcohol intake frequency: holidays/special occasions only substance use type: does not use caffeine: Yes Type: coffee Number of servings: 2 and tea Number of servings: 2 what type of physical activity do you participate in: walking frequency: 1-2 times per week ROS ROS ED Constitutional Constitutional ED: Denies chills or fever(s) ENT ENT ED: Denies ear pain or rhinorrhea Cardiovascular Cardiovascular: Denies chest pain or palpitations Respiratory/Chest Respiratory/Chest: Denies cough or dyspnea Gastrointestinal Gastrointestinal: Reports nausea and other Details: Dyspepsia ; Denies abdominal pain, constipation, diarrhea or vomiting Genitourinary Genitourinary ED: Denies dysuria or hematuria Musculoskeletal Musculoskeletal: Denies arthralgias or myalgias Integumentary Denies rash Neurologic Neurologic: Denies headache(s) or paresthesias EXAM Physical Exam Const Vital Signs: 07/14/21 17:21 07/14/21 20:44 07/14/21 22:11 Temperature 96.7 F L 98.1 F Temperature Source Temporal Temporal Pulse Rate 93 97 Respiratory Rate 16 20 H 18 Blood Pressure 141/86 H 129/78 H Blood Pressure Mean 104 95 Pulse Ox 93 94 Oxygen Delivery Method Room Air Positive well nourished General Appearance ED: NAD; Negative for pallor HEENT Reports moist mucous membranes normocephalic and atraumatic Eyes PERRL and EOMs intact bilaterally Resp normal respiratory effort and clear to auscultation bilaterally Cardio regular rate and regular rhythm GI non-tender and non-distended Palpation: soft Back/Spine no CVA tenderness Neuro CN's II-XII intact bilaterally Sensorium / Orientation: alert, oriented to person, oriented to place and oriented to time Psych mental status grossly normal and thought process normal Skin General Skin Exam: Negative for jaundice or pallor MDM MDM MDM Narrative Medical decision making narrative: Patient given Zofran and a GI cocktail. I did check lab work and he is leukopenic and lymphopenic. Renal function electrolytes are normal. LFTs show a slight increase in AST at 60 and ALT of 69. Lipase is 125. Urinalysis is negative for infection. Patient feels improved after treatment. I will send him home with Zofran and Carafate. I did give him follow-up with Dr. Mccord when he recovers from COVID-19. Impression: 1. Dyspepsia Lab Data Labs: Laboratory Results - last 24 hr 07/14/21 07/14/21 07/14/21 17:30 17:30 17:30 WBC 4.2 L RBC 5.04 Hgb 14.5 Hct 44.0 MCV 87.3 MCH 28.8 MCHC 33.0 RDW Std Deviation 43.0 RDW Coeff of Mynor 13.4 Plt Count 219 MPV 10.3 Immature Gran % (Auto) 0.700 Neut % (Auto) 49.6 Lymph % (Auto) 35.9 Cecil % (Auto) 12.8 H Eos % (Auto) 0.5 Baso % (Auto) 0.5 Absolute Neuts (auto) 2.1 Absolute Lymphs (auto) 1.49 Nucleated RBC % 0 Sodium 136 Potassium 3.6 Chloride 101 Carbon Dioxide 30.0 Anion Gap 5 BUN 14 Creatinine 1.06 Estim Creat Clear Calc 104.07 Est GFR (MDRD) Af Amer 97 Est GFR (MDRD) Non-Af 80 BUN/Creatinine Ratio 13.2 Glucose 97 Calcium 8.5 Total Bilirubin 0.60 Direct Bilirubin 0.20 AST 60 H ALT 69 H Alkaline Phosphatase 84 Total Protein 7.3 Albumin 3.0 L Globulin 4.3 H Lipase Urine Color Urine Clarity Urine pH Ur Specific [place] Urine Protein Urine Glucose (UA) Urine Ketones Urine Occult Blood Urine Nitrite Urine Bilirubin Urine Urobilinogen Ur Leukocyte Esterase Urine RBC Urine WBC Ur Squamous Epith Cells Urine Bacteria Urine Mucus 07/14/21 07/14/21 17:30 21:18 WBC RBC Hgb Hct MCV MCH MCHC RDW Std Deviation RDW Coeff of Mynor Plt Count MPV Immature Gran % (Auto) Neut % (Auto) Lymph % (Auto) Cecil % (Auto) Eos % (Auto) Baso % (Auto) Absolute Neuts (auto) Absolute Lymphs (auto) Nucleated RBC % Sodium Potassium Chloride Carbon Dioxide Anion Gap BUN Creatinine Estim Creat Clear Calc Est GFR (MDRD) Af Amer Est GFR (MDRD) Non-Af BUN/Creatinine Ratio Glucose Calcium Total Bilirubin Direct Bilirubin AST ALT Alkaline Phosphatase Total Protein Albumin Globulin Lipase 125 Urine Color Yellow Urine Clarity Clear Urine pH 6.0 Ur Specific [place] 1.020 Urine Protein 15 H Urine Glucose (UA) Normal Urine Ketones 15 H Urine Occult Blood 25 H Urine Nitrite Negative Urine Bilirubin Negative Urine Urobilinogen 4 H Ur Leukocyte Esterase Negative Urine RBC 0-5 SEEN Urine WBC 0-5 SEEN Ur Squamous Epith Cells 0 SEEN Urine Bacteria 0 SEEN Urine Mucus 0 SEEN Discharge Plan Triage Chief Complaint: Abd Pain ED Provider: Dino Decker Dx/Rx/DC Orders Instructions: Understanding Gastritis Prescriptions: New ondansetron HCl [Zofran] 4 mg tablet 4 mg PO Q8H PRN (Reason: nausea and vomiting) Qty: 14 RF: 0 sucralfate [Carafate] 100 mg/mL suspension 10 ml PO BID PRN (Reason: indigestion) Qty: 400 RF: 0 No Action multivitamin,rg-jfoy-kycireey tablet 1 tab PO DAILY RF: 0 hydrochlorothiazide 25 mg tablet 25 mg PO QAM Qty: 30 RF: 12 lisinopril 40 mg tablet 40 mg PO QDAY Qty: 90 RF: 1 gabapentin 100 mg capsule 100 mg PO QHS Qty: 90 RF: 1 acetaminophen [Tylenol Extra Strength] 500 mg tablet 1,000 mg PO Q6H PRN (Reason: pain) Qty: 60 RF: 0 diclofenac sodium [Voltaren Arthritis Pain] 1 % gel 4 g topical .COMPLEX Qty: 100 RF: 2 ondansetron 4 mg tablet,disintegrating 4 mg PO Q8H PRN (Reason: nausea and vomiting) Qty: 30 RF: 1 aspirin [Adult Aspirin Regimen] 81 mg tablet,delayed release (DR/EC) 81 mg PO QDAY Qty: 30 RF: 1 gabapentin 300 mg capsule 300 mg PO QHS Qty: 90 RF: 3 pramipexole 0.5 mg tablet 0.75 mg PO QHS 90 Days Qty: 135 RF: 3 allopurinol 100 mg tablet 300 mg PO DAILY 30 Days Qty: 90 RF: 3 diltiazem HCl 300 mg capsule,extended release 24 hr 300 mg PO QDAY Qty: 90 RF: 3 omeprazole 40 mg capsule,delayed release(DR/EC) 40 mg PO DAILY Qty: 90 RF: 2 Primary Care Provider: Sanjiv Singleton Referrals: Sanjiv Singleton MD [Primary Care Provider] - Garret Mccord DO [STAFF PHYSICIAN] - As soon as possible Disposition Disposition: Home, Self Care Discharge Date/Time: 07/14/21 22:12
== END 2021-07-14 22:12 | disposition home or self-care (01) ==
PROVIDERS: Emergency Provider Student in an Organized Health Care Education/Training Program; PCP Internal Medicine
DX: R10.13 Epigastric pain (principal); E66.9 Obesity, unspecified; Z68.36 Body mass index [BMI] 36.0-36.9, adult; I10 Essential (primary) hypertension; E78.2 Mixed hyperlipidemia; M10.9 Gout, unspecified; Z86.16 Personal history of COVID-19; Z79.82 Long term (current) use of aspirin; Z79.899 Other long term (current) drug therapy
CPT/HCPCS: 80048; 80076; 81001; 83690; 85025; 93005; 96374; 99284; A4216; J2405

== ENCOUNTER 2021-08-17 16:46 | Outpatient (CLI) | payer MEDICAID, SELFPAY | END 2021-08-17 23:59 | disposition short-term general hospital (02) | PROVIDERS: PCP Internal Medicine; Referring Provider Otolaryngology; Visit Provider Otolaryngology | DX: J32.9 Chronic sinusitis, unspecified (principal) | CPT/HCPCS: 87070; 87077; 87186; 87205 ==

== ENCOUNTER 2022-03-23 09:50 | Day surgery (SDC) | payer MEDICAID, SELFPAY ==
[2022-03-23 10:10] VITALS: BP 141/94; PULSE 85; RESP 16; TEMP 36.1; O2SAT 98; BMI 34.9
[2022-03-23] MEDS: Lactated Ringers 1,000 ML 15 ML IV (10:14)
--- NOTE | 2022-03-23 10:57 | HP.PCM_ITS ---
HPI - General HPI Narrative PASTOR JOHNSON, is a 47 M who presents for screening colonoscopy. The patient has never had a colonoscopy in the past. He reports no abdominal pain or blood in the stool. He denies any family history of colon cancer. [facility] Medical History (Updated 03/22/22 @ 08:27 by Ghada Mes[place]) Arrhythmia Back pain Cardiology follow-up encounter Colon cancer screening COVID-19 Essential hypertension Gastric reflux Gout Health care maintenance History of echocardiogram History of stress test Loose, teeth Mixed hyperlipidemia Obesity Prediabetes Restless legs Tachycardia Wears contact lenses Home Medications aspirin 81 mg tablet,delayed release (Adult Aspirin Regimen) 81 mg PO QDAY #30 tabs 10/11/17 [Rx Last Taken Unknown] multivitamin,yx-kyfn-ztpaewwh (Complete Multivitamin tablet) 1 tab PO DAILY 03/16/20 [History Last Taken Unknown] acetaminophen 500 mg tablet (Tylenol Extra Strength) 1,000 mg PO Q6H PRN pain #60 tabs 06/19/21 [Rx Last Taken Unknown] diclofenac sodium 1 % topical gel (Voltaren Arthritis Pain) 4 g topical .COMPLEX #100 grams 06/20/21 [Rx Last Taken Unknown] allopurinol 300 mg tablet 300 mg PO DAILY #90 tabs 02/13/22 [Rx Last Taken Unknown] gabapentin 100 mg capsule 100 mg PO QHS #90 caps 02/13/22 [Rx Last Taken Unknown] gabapentin 300 mg capsule 300 mg PO QHS #90 caps 02/13/22 [Rx Last Taken Unknown] lisinopril 40 mg tablet 40 mg PO QDAY #90 tabs 02/13/22 [Rx Last Taken Unknown] omeprazole 40 mg capsule,delayed release 40 mg PO DAILY #90 caps 02/13/22 [Rx Last Taken 03/23/22] pramipexole 1.5 mg tablet 1.5 mg PO QHS #90 tabs 02/14/22 [Rx Last Taken Unknown] diltiazem HCl 300 mg capsule,24 hr,extended release 300 mg PO QPM 03/20/22 [History Last Taken Unknown] hydrochlorothiazide 25 mg tablet 25 mg PO QPM 03/20/22 [History Last Taken Unknown] Allergy/AdvReac Type Severity Reaction Status Date / Time colchicine AdvReac Severe Emesis Verified 03/23/22 10:09 Family History Mother Hypertension Grandfather Heart disease Myocardial infarction, Onset Age: 62 Grandmother Hypertension Heart disease Father Liver failure Surgical History History of hernia repair History of sinus surgery Social History Smoking Status: Never smoker alcohol intake: current alcohol intake frequency: holidays/special occasions only substance use type: does not use caffeine: Yes Type: coffee Number of servings: 2 and tea Number of servings: 2 what type of physical activity do you participate in: walking frequency: 1-2 times per week Past Medical/Surgical History Planned Operation Planned Operative Procedure/s: Colonoscopy Previous Hospitalizations/Surgeries HX Hospitalizations: No HX of Surgeries: nasal surgery inguinal hernia repair Any Problems With Anesthesia: No You/Your Family Experience Fever (Hyperthermia) With Anes: No Cholinesterase deficiency: No Cardiovascular Hx Chest Pain within Last 2 months: No Hx Heart Attack: No Hx Hypertension: Yes Hx Cardiac Surgery/Stents/Etc.: No Respiratory Hx Chronic Obstructive Pulmonary Disease (COPD): No Hx Asthma: No Hx Sleep Apnea: No Hx Respiratory Tract Infection/Cold (presently): No Do You Snore Loudly (louder than talking or can be heard): Yes Do You Often Feel Tired/ Fatigued/ Sleepy Dring Daytime?: No Has Anyone Observed You Stop Breathing During Sleep?: Yes Result (for STOP score): Positive Smoking Status: Never smoker Neurological Hx Seizures: No Hx Parkinson's Disease: No Does patient have nerve stimulator: No Blood Disorder Hx Anemia: No Genitourinary Hx Renal Disease: No Hx Dialysis: No Musculoskeletal Hx Arthritis: Yes Hx Rheumatoid Arthritis: No Endocrine Hx Diabetes: No Thyroid Disease: No Psycho/Social Hx Anxiety: No Hx Depression: No Hx Dementia: No Miscellaneous Hx Cancer: No Recent Exposure to Contagious Disease: No Allergies colchicine Adverse Reaction (Severe, Verified 03/23/22 10:09) Emesis Discharge Is Pt Admitted From a Fpc, or a Alf: No Who Could Help: After D/C, Where Do you Plan to Go: Return Home Vital Signs Vital Signs Vital Signs: 03/23/22 10:10 03/23/22 10:10 Temperature 97.0 F L Temperature Source Temporal Pulse Rate 85 Respiratory Rate 16 Respiratory Pattern Normal Blood Pressure 141/94 H Blood Pressure Mean 109 Blood Pressure Source Monitor Blood Pressure Position Semi-Fowlers Blood Pressure Location Right Arm Pulse Ox 98 Oxygen Delivery Method Room Air Weight Weight: 280 lb Body Mass Index (BMI) 34.9 Physical Exam Const alert and oriented x3 Resp normal respiratory effort and normal air movement Cardio regular rate and regular rhythm GI soft to palpation, non-tender and non-distended Assessment & Plan Assessment/Plan (1) Colon cancer screening: PLAN: I explained endoscopy in detail to the patient. I explained the risks including but not limited to stroke or heart attack with anesthesia, perforation of the GI tract, bleeding, infection. I explained that any of these could necessitate further emergency surgery. The patient understands and all questions were answered sufficiently. The patient wishes to proceed with procedure. Herman Plunkett MD Pager: [facility] [address] [place] [address], [address] [place] [address] Office: Surgery Risks - Colonoscopy Risks Include but are not Limited To: Risks include but are not limited to: Bleeding, perforation requiring further surgery, inability to complete colonoscopy requiring barium enema.
--- NOTE | 2022-03-23 11:24 | OP.COLON_ITS ---
Patient Name: Giovanni Rick Procedure Date: 03/23/2022 11:01 AM Date of : 1975 Age: 47 Procedure: Colonoscopy Indications: Screening for colorectal malignant neoplasm Providers: Herman Plunkett MD Medicines: Monitored Anesthesia Care Patient Profile: This is a 47 year old male. Refer to note in patient chart for documentation of history and physical. Last Colonoscopy: none. The patient's first colonoscopy is today. Complications: No immediate complications. Procedure: Pre-Anesthesia Assessment: - Prior to the procedure, a History and Physical was performed, and patient medications and allergies were reviewed. The patient's tolerance of previous anesthesia was also reviewed. The risks and benefits of the procedure and the sedation options and risks were discussed with the patient. All questions were answered, and informed consent was obtained. Prior Anticoagulants: The patient has taken no previous anticoagulant or antiplatelet agents. After reviewing the risks and benefits, the patient was deemed in satisfactory condition to undergo the procedure. After I obtained informed consent, the scope was passed under direct vision. Throughout the procedure, the patient's blood pressure, pulse, and oxygen saturations were monitored continuously. The colonoscope was introduced through the anus and advanced to the cecum, identified by appendiceal orifice and ileocecal valve. The colonoscopy was performed without difficulty. The patient tolerated the procedure well. The quality of the bowel preparation was good. Scope In: 11:10:22 AM Scope Out: 11:21:05 AM Total Procedure Duration Time 0 hours 10 minutes 43 seconds Findings: The entire examined colon appeared normal on direct and retroflexion views. Impression: - The entire examined colon is normal on direct and retroflexion views. - No specimens collected. Recommendation: - Discharge patient to home. - Resume previous diet. - Continue present medications. - Repeat colonoscopy in 10 years for screening purposes. Procedure Code(s): --- Professional --- 33679, Colonoscopy, flexible; diagnostic, including collection of specimen(s) by brushing or washing, when performed (separate procedure) Diagnosis Code(s): --- Professional --- Z12.11, Encounter for screening for malignant neoplasm of colon CPT copyright 2017 [employer]. All rights reserved. The codes documented in this report are preliminary and upon gastroenterologist review may be revised to meet current compliance requirements. Herman Plunkett MD 03/23/2022 11:23:54 AM This report has been signed electronically. Number of Addenda: 0 Note Initiated On: 03/23/2022 11:01 AM
[2022-03-23 11:25] VITALS: BP 127/80; BP 141/94; PULSE 91; RESP 16; TEMP 36.7; O2SAT 92
--- NOTE | 2022-03-23 11:25 | OP.CCLET_ITS ---
03/23/2022 Sanjiv Singleton MD [address] [place] [address] [place] [address] Re : Colonoscopy procedure for Giovanni Merline Dear Dr. Singleton This procedure was performed on Wednesday, March 23, 2022. My impressions and recommendations are as follows: Impressions : - The entire examined colon is normal on direct and retroflexion views. - No specimens collected. Recommendations : - Discharge patient to home. - Resume previous diet. - Continue present medications. - Repeat colonoscopy in 10 years for screening purposes. My findings are described in the full procedure note, which is enclosed. If I can be of further assistance, please feel free to contact me at Doctor phone number(s): , Work: . Sincerely, Herman Plunkett MD 03/23/2022 11:23:54 AM This report has been signed electronically.
[2022-03-23 11:30] VITALS: BP 125/70; BP 141/94; PULSE 87; RESP 16; O2SAT 92
[2022-03-23 11:35] VITALS: BP 122/78; BP 141/94; PULSE 82; RESP 16; O2SAT 93
[2022-03-23 11:40] VITALS: BP 132/90; BP 141/94; PULSE 85; RESP 16; TEMP 36.6; O2SAT 94
[2022-03-23 11:48] VITALS: BP 141/94
== END 2022-03-23 12:15 | disposition home or self-care (01) ==
LOC: EN 09:51 → AC 09:52
PROVIDERS: PCP Internal Medicine; Referring Provider Internal Medicine; Visit Provider Surgery
PROC: 0DJD8ZZ Inspection of Lower Intestinal Tract, Via Natural or Artificial Opening Endoscopic (ICD-10-PCS; CPT 45378; principal; 2022-03-23 10:55)
DX: Z12.11 Encounter for screening for malignant neoplasm of colon (principal); I10 Essential (primary) hypertension; E78.2 Mixed hyperlipidemia; M10.9 Gout, unspecified; Z79.82 Long term (current) use of aspirin; Z86.16 Personal history of COVID-19; K21.9 Gastro-esophageal reflux disease without esophagitis; G25.81 Restless legs syndrome; Z79.899 Other long term (current) drug therapy
CPT/HCPCS: 45378; J7120; J2405

== ENCOUNTER → 2022-03-27 | Outpatient (CLI) | payer MEDICAID, OTHER, SELFPAY ==
--- NOTE | 2022-03-27 17:09 | RAD_ITS ---
EXAM: XR RIGHT ELBOW COMPLETE, 3 OR MORE VIEWS CLINICAL INDICATION: elbow pain Technologist Notes anterior right elbow pain, lifted heavy object, pain since TECHNIQUE: Frontal, lateral and oblique views of the right elbow. This report was created using Jaree report generation technology. COMPARISON: None. FINDINGS: BONES/JOINTS: Unremarkable. There is no displacement of the anterior or posterior fat pads. No acute fracture. No subluxation. Normal alignment. Preservation of the joint space. No destructive or sclerotic lesions. SOFT TISSUES: Unremarkable. No soft tissue swelling or gas. No radiopaque foreign body. RAD/Elbow min 3 Views IMPRESSION: Negative right elbow. Electronically Signed: Jacques Urena MD at 17:59 EDT ,
== END | disposition home or self-care (01) ==
LOC: MTRAD 17:09
PROVIDERS: PCP Internal Medicine; Referring Provider Physician Assistant Surgical; Visit Provider Physician Assistant Surgical
DX: S46.911A Strain of unspecified muscle, fascia and tendon at shoulder and upper arm level, right arm, initial encounter (principal)
CPT/HCPCS: 73080

== ENCOUNTER → 2022-04-18 | Outpatient (CLI) | payer OTHER, MEDICAID, SELFPAY ==
--- NOTE | 2022-04-18 17:38 | MRI_ITS ---
STUDY: MRI RIGHT ELBOW REASON FOR EXAM: Right elbow pain, lifting injury 4 weeks ago. TECHNIQUE: Standardized fat and water weighted pulse sequences were obtained in all 3 orthogonal planes. COMPARISON: Radiographs 03/27/2022. FINDINGS: Normal radio-capitellum articulation. Normal radial collateral ligamentous complex. There is an undersurface partial tear, mild peritendinitis and mild tendinosis of the common extensor tendon (inversion recovery coronal images 8-10). Normal ulnotrochlear articulation. Normal ulnar collateral ligamentous complex. There is mild tendinosis of the common flexor tendon (inversion recovery coronal image 7). There is an anconeus epitrochlearis without effacement of the ulnar nerve (T1 axial images 19-21). There is tendinosis of the distal biceps tendon (inversion recovery coronal images 12, 13; T2 axial images 7, 8) without discrete tendon tear. Normal lacertus fibrosis. Normal brachialis musculotendinous insertion. Normal triceps tendon and teno-osseous insertion. Normal olecranon process. The visualized distal humerus, proximal radius, and ulna are normal. The visualized muscles of the distal arm and proximal forearm are normal. The soft tissue structures are unremarkable. MRI/Upper Ext Joint Only(Routine) IMPRESSION: Undersurface partial tear, mild peritendinitis and mild tendinosis of the common extensor tendon. Tendinosis of the distal biceps tendon without discrete tendon tear. Mild tendinosis of the common flexor tendon Electronically Signed: Darrel Alvarez MD at 18:54 EDT ,
== END | disposition home or self-care (01) ==
LOC: MRI 17:38
PROVIDERS: PCP Internal Medicine; Visit Provider Physician Assistant
DX: S46.211A Strain of muscle, fascia and tendon of other parts of biceps, right arm, initial encounter (principal); S46.911A Strain of unspecified muscle, fascia and tendon at shoulder and upper arm level, right arm, initial encounter
CPT/HCPCS: 73221

== ENCOUNTER 2022-06-08 14:30 | Outpatient (RCR) | payer OTHER, MEDICAID, SELFPAY ==
--- NOTE | 2022-05-09 08:51 | HP.OTEVAL_ITS ---
Patient's Visit Information PASTOR JOHNSON is a 47 year old M, referred to Occupational Therapy by Dr. Seymour Erickson MD, with a diagnosis of right lateral epi- biceps strain. Date of Evaluation: 05/08/22 Occupational Therapist: Darlene Henderson, STEVE/Katie, CHT - Subjective This 47 year old male was seen for OT eval with dx of right lateral epicondylitis along with strain of right biceps. Pt states at DOI 03/19/22. 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 pt states he felt a pop while him and another coworker was moving a cabinet and felt a pop and had a painful arm for about 1-2weeks prior to seeking dr. Pt hand MRI indicating Undersurface partial tear, mild peritendinitis and mild tendinosis of the common extensor tendon with Tendinosis of the distal biceps tendon without discrete tendon tear. and mild tendinosis of the common flexor tendon. pt today reports more pain with biceps than with lateral epicondyle. Pt is currently on light duty but would like to return to his POL[employer] as soon as possible. Pt states DrStephen has him on 5-10# lift restriction. pt had cortisone shot yesterday and states he has increased pain in his elbow. - Pain right elbow 1 Pain Intensity Range: 5, 6 - ROM ROM Comments: ROM is WNL - Strength Supervisor [employer]: right35# left elbow at 90* 110# Lateral Pinch: right 8# left 18# Tripod Pinch: right 10# left 14# Strength Comments: elbow straight left 95#. elbow straight right 25# - Sensation Sensation Comments: denies - Special Tests Biceps Squeeze - Rupture Biceps: negative Lat Epiconylitis - as named: positive pain with palpation - Quick DASH-Disab of Arm,Shoulder& Hand Quick DASH Score: 56.6650 - Tennis Elbow Tennis Elbow Score: 38 - Goals Goal:: pt will demo a increase in right perinatal coordinator strength to 75# or greater with pain no greater than 2/10 by d/c Goal:: pt will report pain no greater 1/10 with use of right UE with work and daily tasks by d.c. therapist will demo the ability to palpate latera epi with pain no greater than 1/10 by d/c Goal:: pt will demo understanding of using lateral epicondylitis precautions to avoid stress on common extensor tendon by end of 3rd visit. Goal:: pt will demo understanding of what a counter forces or Lateral eip brace does to protect common extensor tendon to allow healing as well as use of a wrist brace by end of 2nd visit. - Rehabilitation General Assessment: pt demo with need for skilled OT serviec 2-3x week for 6 weeks to decrease pts pain- increase strength and return pt to his prior work tasks- today therapist ed. pt on protective shama. to avoid stress on elbow while healing- rec'd counter force brace for elbow and wrist brace to decrease tension on common extensor tendon. Pt was given handouts on information- Therapist initiated Phase I conservative lateral epicondylitis protocol of stretch, ice etc. pt demo understanding and agree to POC. Rehabilitation Potential: Good - Anticipated Interventions A/AAROM/PROM, Strengthening, Triggerpoint Release, Modalities, Orthoses, Joint Protection/Energy Conservation, Ergonomic Education, ADL Training, Education re assistive Equipment, Education re Diagnosis, Home Program - Visit Plan Frequency: 2-3x /Week Duration: 6 Weeks TEXT: Thank you for the opportunity to evaluate your patient. For Medicare and Medicare HMO plans, please review the plan of care and approve it. It will need to be FAXED BACK to us at [phone] for Medicare purposes. Please let me know if there are questions or concerns regarding this plan of care. Physician Signature: Date:
--- NOTE | 2022-07-12 08:40 | HP.OT.NRP ---
PASTOR JOHNSON was seen in my office for initial evaluation on 05/08/22. The following Plan of Care was established for this patient: Initial Frequency: 2-3x /Week Initial Duration: 6 Weeks Plan: Continue POC. Anticipated Interventions: A/AAROM/PROM, Strengthening, Triggerpoint Release, Modalities, Orthoses, Joint Protection/Energy Conservation, Ergonomic Education, ADL Training, Education re assistive Equipment, Education re Diagnosis, Home Program This patient was last seen in our office 06/08/22. Pertinent comments regarding their Occupational therapy will appear below: pt was seen in OT for lat.epi- pt not making gains and referred to for further assessment. pt d.c at this time. At this point I will be discontinuing this patient from occupational therapy. I would be happy to see this patient again in the future if found appropriate by the physician. Thank you! Darlene Henderson, OTR/L, CHT
== END 2022-06-08 19:00 | disposition home or self-care (01) ==
LOC: OT 14:30
PROVIDERS: PCP Internal Medicine; Referring Provider Orthopaedic Surgery Sports Medicine; Visit Provider Orthopaedic Surgery Sports Medicine
DX: M77.11 Lateral epicondylitis, right elbow (principal); S46.211A Strain of muscle, fascia and tendon of other parts of biceps, right arm, initial encounter
CPT/HCPCS: 97035; 97110; 97140; 97166

== ENCOUNTER → 2022-07-19 | Outpatient (CLI) | payer MEDICAID, SELFPAY | END | disposition home or self-care (01) | LOC: LABSPEC 15:24 | PROVIDERS: PCP Internal Medicine; Visit Provider Otolaryngology | DX: J03.90 Acute tonsillitis, unspecified (principal) | CPT/HCPCS: 87070 ==

== ENCOUNTER 2022-08-22 06:30 | Day surgery (SDC) | payer OTHER, MEDICAID, SELFPAY ==
[2022-08-22] VITALS (12 sets, daily range): BP systolic 76–113; BP diastolic 52–71; PULSE 67–90; RESP 12–18; TEMP 35.9–36.7; O2SAT 81–99; BMI 35.2
[2022-08-22] MEDS: Lactated Ringers 1,000 ML 15 ML IV ×2 (07:22→09:35)
--- NOTE | 2022-08-22 07:37 | PCM.HP.STD ---
HPI - General HPI Narrative PASTOR JOHNSON, is a 47 M who presents for right elbow scope, debridement, repair extensor. No changes to H and P. Questions answered, recovery detailed. Narcotic counselling. right side marked. ok to proceed. MR#: [id number] Acct: [id number] Name:PASTOR FRIEDMAN Rep #: [id number] : 1975 ? ? Provider: Dr. Seymour Erickson MD Age/Sex:? 47/M ? ? [place] [facility] [place] Status: Signed Intake Intake Visit Reasons:?RIGHT ELBOW Allergies colchicine Adverse Reaction (Severe, Verified 06/22/22 15:03) Emesis Medications aspirin 81 mg tablet,delayed release (Adult Aspirin Regimen) 81 mg PO QDAY #30 tabs 10/11/17 [Rx Confirmed 06/22/22] multivitamin,fo-uhod-vtbbrose (Complete Multivitamin tablet) 1 tab PO DAILY 03/16/20 [History Confirmed 06/22/22] acetaminophen 500 mg tablet (Tylenol Extra Strength) 1,000 mg PO Q6H PRN pain #60 tabs 06/19/21 [Rx Confirmed 06/22/22] diclofenac sodium 1 % topical gel (Voltaren Arthritis Pain) 4 g topical .COMPLEX #100 grams 06/20/21 [Rx Confirmed 06/22/22] allopurinol 300 mg tablet 300 mg PO DAILY #90 tabs 02/13/22 [Rx Confirmed 06/22/22] gabapentin 100 mg capsule 100 mg PO QHS #90 caps 02/13/22 [Rx Confirmed 06/22/22] gabapentin 300 mg capsule 300 mg PO QHS #90 caps 02/13/22 [Rx Confirmed 06/22/22] lisinopril 40 mg tablet 40 mg PO QDAY #90 tabs 02/13/22 [Rx Confirmed 06/22/22] omeprazole 40 mg capsule,delayed release 40 mg PO DAILY #90 caps 02/13/22 [Rx Confirmed 06/22/22] pramipexole 1.5 mg tablet 1.5 mg PO QHS #90 tabs 02/14/22 [Rx Confirmed 06/22/22] diltiazem HCl 300 mg capsule,24 hr,extended release 300 mg PO QPM 03/20/22 [History Confirmed 06/22/22] hydrochlorothiazide 25 mg tablet 25 mg PO QPM 03/20/22 [History Confirmed 06/22/22] doxycycline hyclate 50 mg capsule 50 mg PO DAILY 06/08/22 [History Confirmed 06/22/22] PFSH Medical History? Arrhythmia Back pain Cardiology follow-up encounter Colon cancer screening COVID-19 Essential hypertension Gastric reflux Gout Health care maintenance History of echocardiogram History of stress test Loose, teeth Mixed hyperlipidemia Obesity Prediabetes Restless legs Right lateral epicondylitis Strain of right biceps Tachycardia Wears contact lenses Surgical History? History of hernia repair History of sinus surgery Family History? Mother HypertensionGrandfather Heart disease Myocardial infarction,? Onset Age: 62Grandmother Hypertension Heart diseaseFather Liver failure Social History? Smoking Status:? Never smoker alcohol intake:? current alcohol intake frequency: holidays/special occasions only substance use type:? does not use caffeine:? Yes Type: coffee Number of servings: 2 and tea Number of servings: 2 what type of physical activity do you participate in:? walking frequency:? 1-2 times per week HPI RIGHT ELBOW Details: Parts of this documentation were recorded by a scribe, this documentation accurately reflects the service provided and the decisions made by me, Dr. Seymour Erickson MD 06/22/22 1084. PASTOR JOHNSON is a 47 year old M here today for FU right elbow pain, still located on the lateral side, worse with lifting, was only able to carve a pumpkin, he did try to go back to work but was really unable to do any sort of heavy lifting or grasping with the upper extremity without being in quite a bit of pain on the lateral side.? He has tried PT, anti-inflammatories bracing strapping as well as cortisone injection and he is interested in surgery. Ortho Exam General General: Yes no acute distress Neurologic: Yes alert and Yes oriented x3 Psychologic: Yes reasonable and appropriate Right Wrist/Hand Skin/Wound: Yes CDI, No Swelling, No Ecchymosis, Yes nail intact and Yes capillary refill normal Left Wrist/Hand Skin/Wound: No Swelling and No Ecchymosis Right Elbow Skin/Wound: Yes CDI, No eccymosis, No erythema and No Swelling ROM: Yes Flexion 0-140, Supination 0-90 and Pronation 0-80 Test: Yes Valgus Stress Test, Yes Varus Stress Test, No TTP Medial Epicondyle, Yes TTP Lateral Epicondyle, Yes Pain w/ resist wrist ext, No Pain w/ resist wrist flex, Yes Pain w/ resist 3rd dig ext, No Thenar Atrophy and No Ulnar Nerve Subluxation Sensation: Radial: I, Ulnar: I and Median: I Motor: Elbow Extension: 5, Elbow Flexion: 5, EPL: 5, FDP-2: 5 and 1st Dorsal Interosseous: 5 Supplemental Info [facility] [address] [place] [address] Upper Ext? Joint Only(Routine) MR#:? [id number] Acct: [id number] Name:? PASTOR JOHNSON Rep #: [id number] :?? 1975 M 47 ? From:? ? Darrel Alvarez MD PCP: Dr. Sanjiv Singleton MD ? Status: REG CLI Study: Upper Ext? Joint Only(Routine) ? Date of Exam: 04/18/22 Exam# [id number] ? Ordering Dr:? Hola Duron STUDY: ? MRI RIGHT ELBOW REASON FOR EXAM: Right elbow pain, lifting injury 4 weeks ago. TECHNIQUE: ? Standardized fat and water weighted pulse sequences were obtained in all 3 orthogonal planes. COMPARISON: ? Radiographs 03/27/2022. FINDINGS: Normal radio-capitellum articulation.? Normal radial collateral ligamentous complex.? There is an undersurface partial tear, mild peritendinitis and mild tendinosis of the common extensor tendon (inversion recovery coronal images 8-10). Normal ulnotrochlear articulation.? Normal ulnar collateral ligamentous complex.? There is mild tendinosis of the common flexor tendon (inversion recovery coronal image 7).? There is an anconeus epitrochlearis without effacement of the ulnar nerve (T1 axial images 19-21). There is tendinosis of the distal biceps tendon (inversion recovery coronal images 12, 13; T2 axial images 7, 8) without discrete tendon tear.? Normal lacertus fibrosis. Normal brachialis musculotendinous insertion. Normal triceps tendon and teno-osseous insertion.? Normal olecranon process. The visualized distal humerus, proximal radius, and ulna are normal.? The visualized muscles of the distal arm and proximal forearm are normal. The soft tissue structures are unremarkable. MRI/Upper Ext? Joint Only(Routine) IMPRESSION: Undersurface partial tear, mild peritendinitis and mild tendinosis of the common extensor tendon. ? Tendinosis of the distal biceps tendon without discrete tendon tear. ? Mild tendinosis of the common flexor tendon ? Electronically Signed: Darrel Alvarez MD at 18:54 EDT , ? Coding Level of Care Code Off vis,est,level 4 Diagnoses Right lateral epicondylitis? M77.11 Time Spent (min) 30 Assessment and Plan Assessment and Plan (1) Right lateral epicondylitis: ?Status:?Acute ?Plan: 47-year-old man with right elbow lateral epicondylitis as well as partial tearing of the extensor origin of the right elbow.? He has tried extensive conservative management.? He is interested in pursuing surgical option for this which in my hands would be right elbow arthroscopy, debridement, repair of common extensor origin.? We discussed the pros and cons risks and benefits of this versus conservative continued management.? We discussed the recovery 2 weeks to heal the incisions return to typing and writing and 3 months before returning to heavy lifting or grasping of the upper extremity.? He understood wished to proceed signed the consent form for surgery and we will submit for approval. Pros and cons risks and benefits were discussed with the patient including but not limited to infection, pain, stiffness, bleeding, damage to surrounding structures, neurovascular injury, recurrence or retear, failure or wear of hardware or fixation, instability, fracture, deep vein thrombosis and pulmonary embolism, anesthetic risks, patient dissatisfaction, need for further surgery and other risks.? Patient understood and wished to proceed with surgery, and signed the informed consent documentation. [facility] Medical History (Updated 08/15/22 @ 10:00 by Brianna Alonzo) Arrhythmia Back pain Cardiology follow-up encounter Colon cancer screening COVID-19 Essential hypertension Gastric reflux Gout Health care maintenance History of echocardiogram History of stress test Loose, teeth Mixed hyperlipidemia Obesity Prediabetes Restless legs Right lateral epicondylitis Strain of right biceps Tachycardia Wears contact lenses Home Medications aspirin 81 mg tablet,delayed release (Adult Aspirin Regimen) 81 mg PO QDAY #30 tabs 10/11/17 [Rx Last Taken Unknown] multivitamin,ym-zwas-nniwpzyn (Complete Multivitamin tablet) 1 tab PO DAILY 03/16/20 [History Last Taken Unknown] diclofenac sodium 1 % topical gel (Voltaren Arthritis Pain) 4 g topical .COMPLEX #100 grams 06/20/21 [Rx Last Taken Unknown] allopurinol 300 mg tablet 300 mg PO DAILY #90 tabs 02/13/22 [Rx Last Taken Unknown] gabapentin 100 mg capsule 100 mg PO QHS #90 caps 02/13/22 [Rx Last Taken Unknown] lisinopril 40 mg tablet 40 mg PO QDAY #90 tabs 02/13/22 [Rx Last Taken Unknown] omeprazole 40 mg capsule,delayed release 40 mg PO DAILY #90 caps 02/13/22 [Rx Last Taken 08/22/22] pramipexole 1.5 mg tablet 1.5 mg PO QHS #90 tabs 02/14/22 [Rx Last Taken Unknown] diltiazem HCl 300 mg capsule,24 hr,extended release 300 mg PO QPM 03/20/22 [History Last Taken Unknown] hydrochlorothiazide 25 mg tablet 25 mg PO QPM 03/20/22 [History Last Taken Unknown] gabapentin 300 mg capsule 300 mg PO QHS #90 caps 06/25/22 [Rx Last Taken Unknown] Lactobacil.acidophilus-Bifido.animalis 5 billion cell sprinkle capsule (Probiotic) 1 cap PO DAILY 08/15/22 [History Last Taken Unknown] ascorbic acid (vitamin C) 500 mg tablet (Vitamin C) 500 mg PO DAILY 08/15/22 [History Last Taken Unknown] Allergy/AdvReac Type Severity Reaction Status Date / Time doxycycline Allergy Unknown Hives Verified 08/15/22 09:53 colchicine AdvReac Severe Emesis Verified 08/15/22 09:53 Family History Mother Hypertension Grandfather Heart disease Myocardial infarction, Onset Age: 62 Grandmother Hypertension Heart disease Father Liver failure Surgical History (Updated 08/15/22 @ 10:04 by Brianna Alonzo) History of hernia repair History of sinus surgery Hx of colonoscopy Social History Smoking Status: Never smoker alcohol intake: current alcohol intake frequency: holidays/special occasions only substance use type: does not use caffeine: Yes Type: coffee Number of servings: 2 and tea Number of servings: 2 what type of physical activity do you participate in: walking frequency: 1-2 times per week Vital Signs Vital Signs Vital Signs: 08/22/22 07:10 08/22/22 07:14 Temperature 97.5 F L Temperature Source Temporal Pulse Rate 90 Respiratory Rate 16 Respiratory Pattern Normal Blood Pressure 101/68 Blood Pressure Mean 79 Blood Pressure Source Monitor Blood Pressure Position Semi-Fowlers Blood Pressure Location Right Arm Pulse Ox 95 Oxygen Delivery Method Room Air Weight Weight: 282 lb 3.067 oz Body Mass Index (BMI) 35.2
[2022-08-22] MEDS: Epinephrine (1 mg/ml) 1 MG/ML VIAL (08:43)
--- NOTE | 2022-08-22 09:32 | OP.PCM_ITS ---
Problems Associated Problem List Diagnoses (1) Right lateral epicondylitis: Report of Operation Date of Procedure: 08/22/22 Pre-Operative Diagnosis: right elbow lateral epicondylitis, detachment of extensor tendon Post-Operative Diagnosis: same Surgery/Procedure Performed:: Right elbow arthroscopy debridement and repair of common extensor Surgeon: Seymour Erickson Type of Anesthesia: General and Local Anesthesiologist: Igor Bradford Special Medications: 10cc 0.25% bupivicaine Estimated Blood Loss (mL): 10 Description of Procedure: Patient brought to the operating room theater. Placed supine on the operating room table. All bony prominences appropriately padded. 2 g IV Ancef administered prior to the start of the procedure. General anesthesia induced. Patient transferred right side up lateral decubitus with the aid of the beanbag positioner. Axillary roll placed. SCDs on the legs. Upper extremity prepped and draped in the usual sterile fashion with chlorhexidine-based prep solution allowing over 3 minutes drying time prior to draping. Preoperative timeout performed to confirm the site patient and the surgery. Began by exsanguinating the limb inflating the tourniquet to 250 mmHg. Insufflated the joint with 25 cc of normal saline. Identified the proximal anteromedial portal as well as proximal anterolateral portal. Inserted the arthroscope through percutaneous technique through the proximal anteromedial portal. Examined the intra-articular extent of the joint no loose bodies. On about 10% of the radial head there is full-thickness cartilage loss. Otherwise minor degenerative grade 1-2 changes throughout the joint. Made the proximal anterolateral portal through inside out spinal needle localization 2 cm proximal and 1 cm anterior to the lateral epicondyle. Gently debrided the undersurface of the ECRB tendon Using shaving instrument. Switch the scope on both sides of the joint to examine the intra-articular extent. Gentle debridement around the radial head as well as at the tip of the coronoid. Arthroscopy pictures taken and saved throughout the case. I removed the arthroscope. I turned my attention to the open part of the operation. Made a small 3 inch incision curved centered over the lateral aspect of the elbow at the lateral epicondyle. Carried dissection down through skin and subcutaneous tissue achieve meticulous hemostasis. Identified the lateral epicondyle. He made a split in the extensor tendon staying above the equator. I then placed using the drill sleeve drill guide a 1.8 mm Arthrex all suture fiber tack anchor. I set this in place gentle back pressure. I then used the #2 FiberWire suture in a [id number] running mattress fashion to repair the extensor split. I then passed the repair suture through the eyelet and then passed this and knotless fashion back through the anchor cutting the suture short achieving appropriate tension on the repair. Wound thoroughly irrigated subcutaneous tissue closed with 2-0 Vicryl sutures skin with 3-0 Monocryl. Tourniquet let down. 10 cc of quarter percent bupivacaine instilled in and around the soft tissues in the portal sites. Skin cleaned with wet and dry dressing followed application of Steri-Strips Adaptic gauze abdominal pad dressing and Nima wrap loosely wrapped. I then placed fiberglass posterior back slab appropriately padded and again overwrapped with loosely wrapped Nima bandage. Use the sling as well with the arm in slightly less than 90 degrees of flexion. Patient woken up from the general anesthetic transferred off the operating table and taken to postanesthetic care unit in stable condition. All sponge needle i nstrument counts were correct no complications. Plan patient discharged home according to day surgery criteria follow-up in the office in 2 days time. Grafts/Implants Used: arthrex 1.8mm fiber chey surure anchor
--- NOTE | 2022-08-22 09:42 | DCINST_ITS ---
Discharge Instructions Diet Discharge Diet: No restrictions Activity Ice area for (Minutes): 10 Keep extremity elevated above heart level: Operative Extremity Dressing / Incision Call your doctor if your incision/area has: Continuous Slow Oozing, Sudden Increased Bleeding, Increased Pain/ Swelling, Increased Redness, Foul Smelling Discharge and Swelling at the incision site Remove Dressing in: leave in place till F/U Follow Up Care Please Follow Up With: Seymour Erickson MD When: 2 days Test Results: Test results from this visit will be discussed in further detail at your follow- up appointment, if applicable. Discharge Plan Admission Attending Provider: Seymour Erickson Primary Care Provider: Sanjiv Singleton Discharge Orders/Prescriptions Prescriptions: New oxycodone-acetaminophen [Percocet] 5-325 mg tablet 1 tab PO Q4H MDD 6 PRN (Reason: pain) 7 Days Qty: 20 0RF No Action multivitamin,mg-adnl-phjhlxhz tablet 1 tab PO DAILY diclofenac sodium [Voltaren Arthritis Pain] 1 % gel 4 g topical .COMPLEX Qty: 100 2RF Rx Instructions: apply 4 grams topically to the knee 3-4 times PRN diltiazem HCl 300 mg capsule,extended release 24 hr 300 mg PO QPM hydrochlorothiazide 25 mg tablet 25 mg PO QPM ascorbic acid (vitamin C) [Vitamin C] 500 mg Tablet 500 mg PO DAILY Probiotic 5 billion cell Capsule, Sprinkle 1 cap PO DAILY aspirin [Adult Aspirin Regimen] 81 mg tablet,delayed release (DR/EC) 81 mg PO QDAY Qty: 30 1RF allopurinol 300 mg tablet 300 mg PO DAILY Qty: 90 3RF gabapentin 100 mg capsule 100 mg PO QHS Qty: 90 3RF lisinopril 40 mg tablet 40 mg PO QDAY Qty: 90 3RF omeprazole 40 mg capsule,delayed release(DR/EC) 40 mg PO DAILY Qty: 90 3RF Rx Instructions: Take 30 minutes before breakfast pramipexole 1.5 mg tablet 1.5 mg PO QHS Qty: 90 3RF gabapentin 300 mg capsule 300 mg PO QHS Qty: 90 0RF Referrals / Follow Up: Sanjiv Singleton MD [Primary Care Provider] - Seymour Erickson MD [Med Staff - Active Staff] -
--- NOTE | 2022-08-22 10:00 | SUR.PHASEI ---
10-15 SECOND PERIODS OF APNEA NOTED WHILE SLEEPING. O2 CONTINUES PER NRB.
== END 2022-08-22 12:50 | disposition home or self-care (01) ==
LOC: SDC 06:32 → AC 06:34
PROVIDERS: PCP Internal Medicine; Referring Provider Orthopaedic Surgery Sports Medicine; Visit Provider Orthopaedic Surgery Sports Medicine
PROC: (CPT 29830; principal; 2022-08-22 07:45)
DX: M77.11 Lateral epicondylitis, right elbow (principal); S56.511A Strain of other extensor muscle, fascia and tendon at forearm level, right arm, initial encounter; X50.0XXA Overexertion from strenuous movement or load, initial encounter; I10 Essential (primary) hypertension; E66.9 Obesity, unspecified; Z68.35 Body mass index [BMI] 35.0-35.9, adult; Z79.899 Other long term (current) drug therapy; Z86.16 Personal history of COVID-19
CPT/HCPCS: 29837; 24341; 01740; C1776; J7120; J2405

== ENCOUNTER → 2022-09-13 | Outpatient (CLI) | payer MEDICAID, SELFPAY ==
--- NOTE | 2022-09-13 16:17 | MRI_ITS ---
EXAM: MR RIGHT LOWER EXTREMITY WITHOUT INTRAVENOUS CONTRAST, ANKLE CLINICAL INDICATION: PLANTAR FASCIAL FIBROMATOSIS TECHNIQUE: Multiplanar and multisequence MR images of the right ankle without intravenous contrast. This report was created using [employer] report No Chains technology. COMPARISON: None. FINDINGS: LIGAMENTS: ANTERIOR TALOFIBULAR: Thickening of the anterior and posterior talofibular ligament ligaments likely represent prior injury. POSTERIOR TALOFIBULAR: Thickening of the anterior and posterior talofibular ligament ligaments likely represent prior injury. ANTERIOR TIBIOFIBULAR: Unremarkable. Intact. POSTERIOR TIBIOFIBULAR: Unremarkable. Intact. CALCANEOFIBULAR: Attenuated appearance of the calcaneofibular ligament there is concerning for partial thickness tearing. DELTOID: Deltoid ligamentous complex is intact. SPRING: Unremarkable. Intact. LISFRANC: Unremarkable. Intact. TENDONS: ACHILLES: Unremarkable. Intact. FLEXOR: Unremarkable. Intact. EXTENSOR: Unremarkable. Intact. PERONEAL: Tenosynovitis without tendon tearing. TIBIALIS ANTERIOR: Unremarkable. Intact. TIBIALIS POSTERIOR: Unremarkable. Intact. MUSCLES: Unremarkable. Normal bulk and signal. FLUID: Unremarkable. No significant tibiotalar or subtalar joint effusion.. SINUS TARSI: Altered signal involving the sinus Tarsi, nonspecific although this could represent sinus Tarsi syndrome in the appropriate clinical setting. TARSAL TUNNEL: Unremarkable. PLANTAR FASCIA: Evidence of active plantar fasciitis with thickening of the medial cord of plantar aponeurosis and with adjacent fluid signal/inflammation. There is reactive marrow edema involving the adjacent posterior inferior calcaneus and as well as involving the adjacent calcaneal spur. CARTILAGE: Unremarkable. No osteochondral lesion. Articular cartilage intact. 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 No concerning bone marrow signal alterations. OTHER SOFT TISSUES: Unremarkable. No tendon tearing. MRI/Lower Ext Joint Only (Routine) IMPRESSION: 1. Evidence of active plantar fasciitis with thickening of the medial cord of plantar aponeurosis and with adjacent fluid signal/inflammation. There is reactive marrow edema involving the adjacent posterior inferior calcaneus and as well as involving the adjacent calcaneal spur. 2. Peroneal tenosynovitis without tendon tearing. 3. 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 Electronically Signed: Artur Ramirez MD at 2:50 EST ,
== END | disposition home or self-care (01) ==
LOC: MRI 16:11
PROVIDERS: PCP Internal Medicine; Visit Provider Podiatrist
DX: M72.2 Plantar fascial fibromatosis (principal)
CPT/HCPCS: 73721

== ENCOUNTER → 2022-11-23 | Outpatient (CLI) | payer MEDICAID, SELFPAY ==
[2022-11-23 13:35] LABS: RBC /Synovial Fluid 0.036 10^6/uL (0); Synovial Fld Mononuclear WBC # 0.165 10^3/ul; Synovial Fld Mononuclear WBC % 69.3 %; Synovial Fld Polynuclear WBC # 0.073 10^3/uL; Synovial Fld Polynuclear WBC % 30.7 %
[2022-11-23 13:55] LABS: AUTO B FLUID DILUENT BKGD CT WBC <0.1 RBC <0.01 (W<.1,R<.01); Source- Body Fluid SYNOVIAL
[2022-11-23 13:56] LABS: Appearance /Synovial Fluid Cloudy (CLEAR); Color / Synovial Fluid Bloody (Pale Yellow); Viscosity / Synovial Fluid Mod. Viscous (HIGH)
[2022-11-23 15:04] LABS: Body Fluid QC Type(s) BF2Q; CRYSTALS, BODY FLUID NO CRYSTALS SEEN
[2022-11-23 15:07] LABS: Lymph 23 %; Monocyte /Synovial Fluid 3 %; Neutrophil 28 % (0-25); Other Cell /Synovial Fluid 46 %
[2022-11-27 12:40] LABS: Pathologist Review Reviewed
[2022-11-27 12:41] LABS: Pathologist Comment Reviewed
[2022-11-27 14:17] LABS: GLUCOSE, SYNOVIAL FLUID 129 mg/dL (.); PROTEIN, SYNOVIAL FLUID 3.7 g/dL (.)
== END | disposition home or self-care (01) ==
LOC: LABSPEC 12:51
PROVIDERS: PCP Internal Medicine; Referring Provider Orthopaedic Surgery Sports Medicine; Visit Provider Orthopaedic Surgery Sports Medicine
DX: T79.2XXA Traumatic secondary and recurrent hemorrhage and seroma, initial encounter (principal)
CPT/HCPCS: 82945; 84157; 87070; 87075; 87205; 89050; 89051; 89060

== ENCOUNTER → 2022-12-20 | Outpatient (CLI) | payer MEDICAID, SELFPAY ==
[2022-12-20 17:08] LABS: Absolute Lymphocyte Count 2.13 X10^3/uL (0.83-4.51); Absolute Neutrophil Count 5.3 X10^3/uL (2.0-7.7); Basophil# 0.05 X10^3/uL; Basophil% 0.6 % (0-1); Eosinophil# 0.12 X10^3/uL; Eosinophils% 1.4 % (0-5); Hematocrit 45.3 % (40-54); Hemoglobin 15.1 g/dL (13.0-16.5); Lymphocyte # 2.13 X10^3/ul (0.83-4.51); Lymphocyte % 25.2 % (19-41); Mean Corp Hgb Conc 33.3 g/dL (32-36); Mean Corpuscular Hgb 29.7 pg (27.0-32.0); Mean Corpuscular Volume 89.2 fL (80-94); Monocyte# 0.77 X10^3/uL; Monocyte% 9.1 % (0-10); NRBC Flagged by Analyzer 0 % (0-5); Neutrophil # 5.34 X10^3/uL (2.7-7.7); Neutrophil % 63.3 % (47-70); Platelet Count 234 K/mm3 (150-450); RBC Distribution Width CV 13.8 % (11.6-14.6); RBC Distribution Width SD 45.2 fl (35.1-43.9); Red Blood Count 5.08 M/mm3 (4.6-6.2); White Blood Count 8.4 K/mm3 (4.4-11.0)
[2022-12-20 17:24] LABS: AST(SGOT) 61 U/L (15-37); Alanine Aminotransfer ALT/SGPT 182 U/L (16-61); Albumin, Serum 3.6 g/dL (3.2-5.0); Alkaline Phosphatase 103 U/L (45-117); Anion Gap 9 (5-15); BUN 21 mg/dL (7-18); BUN/Creat Ratio 15.8 RATIO (10-20); Calcium,Total 9.5 mg/dL (8.5-10.1); Chloride 107 mmol/L (98-107); Cholesterol 201 mg/dL (200); Creatinine, Serum 1.33 mg/dL (0.70-1.30); EST Glomerular Filtration Rate 61 mL/min (>60); Est Glom Filt Rate - Afr Amer 74 mL/min (>60); Globulin 3.7 g/dL (2.2-4.2); Glucose 100 mg/dL (74-106); High Density Lipoprotein 49 mg/dL; Potassium 3.8 mmol/L (3.5-5.1); Protein, Total 7.3 g/dL (6.4-8.2); Sodium Level 141 mmol/L (136-145); Triglycerides 117 mg/dL; Very Low Density Lipoprotein 23 mg/dL (5-40)
[2022-12-20 17:42] LABS: Hemoglobin A1c 6.9 % (3.8-5.6)
== END | disposition home or self-care (01) ==
LOC: LAB 16:43
PROVIDERS: PCP Internal Medicine; Visit Provider Internal Medicine
DX: I10 Essential (primary) hypertension (principal); R73.03 Prediabetes
CPT/HCPCS: 36415; 80053; 80061; 83036; 85025

== ENCOUNTER → 2023-01-18 | Outpatient (CLI) | payer MEDICAID, SELFPAY | END | disposition home or self-care (01) | PROVIDERS: PCP Internal Medicine; Referring Provider Internal Medicine; Visit Provider Internal Medicine | DX: G47.10 Hypersomnia, unspecified (principal); G47.33 Obstructive sleep apnea (adult) (pediatric) | CPT/HCPCS: 95811 ==

== ENCOUNTER → 2023-01-19 | Outpatient (CLI) | payer MEDICAID, SELFPAY ==
--- NOTE | 2023-01-19 07:54 | US_ITS ---
INDICATION: Elevated Liver Enzymes EXAMINATION: Ultrasound US Abdomen Limited (quadrant) TECHNIQUE: Roman scale and color doppler imaging was performed of the right upper quadrant. COMPARISON: None. FINDINGS: LIVER: Significant increased echogenicity throughout the liver. No contour abnormality or mass lesion exemplified. Craniocaudal length measurement of 19.4 cm; enlarged liver. There is no free fluid. Normal directional color flow in the sampled left, intrahepatic portal vein. GALLBLADDER AND BILIARY TREE: No shadowing gallstone, pericholecystic fluid or gallbladder wall thickening is demonstrated. The proximal common bile duct measures 5, which is within normal limits for the patient''s age. Songraphic Head''s sign: Negative. PANCREAS: Not visualized secondary to bowel gas. RIGHT KIDNEY: 12.4 cm length kidney shows normal contour and echogenicity. No hydronephrosis. No calcifications to suggest stone. Normal color flow in the hilum. US/Liver IMPRESSION: Enlarged liver with diffuse hepatic steatosis. Electronically Signed: Brien Claire DO at 22:09 EDT ,
== END | disposition home or self-care (01) ==
LOC: US 07:48
PROVIDERS: PCP Internal Medicine; Referring Provider Internal Medicine; Visit Provider Internal Medicine
DX: R74.8 Abnormal levels of other serum enzymes (principal)
CPT/HCPCS: 76705

== ENCOUNTER 2023-02-04 16:30 | Outpatient (RCR) | payer OTHER, MEDICAID, SELFPAY ==
--- NOTE | 2022-09-05 09:25 | HP.OTEVAL ---
Patient's Visit Information PASTOR JOHNSON is a 47 year old M, referred to Occupational Therapy by Dr. Seymour Erickson MD, with a diagnosis of right lateral epicondylitis. Date of Evaluation: 09/04/22 Occupational Therapist: Darlene Henderson, STEVE/Katie, CHT - Subjective This 47 year old male was seen for OT eval with dx of right lateral epicondylitis. Pt struggled with pain since 2021. Pt went throughout Occupational therapy but continued to have right elbow pain. Pt did have one cortisone shot and when pain returned he decided on having the sx. pt underwent right elbow scope and repair of extensor tendon. Pt arrives 1 week and 6 days s/p. pt states he feels ok, has not taken any ibuprofen today. pain is about a 3/10. Dr. Erickson has ordered OT for elbow ROM and finger (Avoid repetitive motion). Therapist reviewed sx and precautions. pt demo understanding. Pt states he is ready to start healing so he can return to using his right hand with ADls and return to work. - Pain right elbow 3 Pain Intensity Range: 3, 6 - ROM Elbow: right 0/140 left +5/145 Forearm: right/left WNL Wrist: right 60/50 left 75/60 ROM Comments: all digit ROM WNL - Strength Insurance Consultant: right NT left 110# Lateral Pinch: right NT left 20# Tripod Pinch: right NT left 22# Strength Comments: right will be tested at later date - Sensation Sensation Comments: denies - Quick DASH-Disab of Arm,Shoulder& Hand Quick DASH Score: 89.2850 - Goals Goal:100% adherence to protocol: Yes Comment: common extensor tendon repair guidelines Goal:Daily scar massage when approriate: Yes Goal:ROM equal to unaffected hand: Yes Goal:Insurance Consultant/Pinch strength at least 75% of unaffected hand: Yes Comment: will not initiate strengthening until week 6 or when feels appropriate Goal:No pain with affected hand use: Yes Goal:Full use of affected hand in daily activities including: Yes Goal:Decrease scar hypersensitivity: Yes - Rehabilitation General Assessment: pt arrives 1 week and 6 days s/p from a left common extensor tendon repair with elbow scope. Pt arrives with wrist brace on- states min. pain. Pt limited with use of right UE due to newly healing structures. pt would benefit from skilled OT services 2-3x week for 4 weeks to assist pt in following repair guidelines. Today therapist ed. pt on ROM of elbow and digits- edema control and scar mtg. pt and pts demo understanding. Rehabilitation Potential: Good - Anticipated Interventions A/AAROM/PROM, Strengthening, Scar Care, Triggerpoint Release, Desensitization, Modalities, Orthoses, Joint Protection/Energy Conservation, Fine Motor Coord/Jim, Sensory Stimulation, Education re assistive Equipment, Education re Diagnosis, Caregiver Training, Home Program - Visit Plan Frequency: 1-2x /Week Duration: 6 Weeks General Plan: will initiates elbow and digit ROM to comfort levels until pt reaches full ROM TEXT: Thank you for the opportunity to evaluate your patient. For Medicare and Medicare HMO plans, please review the plan of care and approve it. It will need to be FAXED BACK to us at [phone] for Medicare purposes. Please let me know if there are questions or concerns regarding this plan of care. Physician Signature: Date:
--- NOTE | 2022-11-16 07:51 | OTREVAL_ITS ---
Dr. Seymour Erickson MD, It has been my pleasure to treat PASTOR JOHNSON over the last 7 visits for right lateral epicondylitis. Please see the progress note below for an update on the occupational therapy plan of care! Subjective: Pt arrived 25 minutes late- thought that appt was at 2:30. pt arrives without tubigrip on this date -. reports soreness at distal and proximal ends of incision. no other pain - Objective/Function: 33cm right elbow. 32cm left elbow. right interceptor operator strength 40# left is 80#. right lateral pinch 18#. right tripod pinch 15#. pt tolerating PRE well-. pt bought compression sleeve at [employer]-( it ended up being a sun sleeve). pt reached out to workers comp to pay for compression sleeve 20-30 mmHg- they sent a elbow brace. so pt has been using tubi interceptor operator to try to control swelling - therapist explained need of compression sleeve at all times to stimulate circulation of fluid- pt waiting on workers comp to get him sleeve. Plan Frequency: 1-2x /Week Duration: 4 Weeks Plan: will cont to increase strength at pt tolerates Goals - Goals Patient Goals: Regain Mobility, Regain Strength, Decrease Pain, Return to Work, Use Hand/Wrist/Arm Normally Again Goal:100% adherence to protocol: Yes Goal:Daily scar massage when approriate: Yes Goal:ROM equal to unaffected hand: Yes Goal:Semi Automatic Sewing Machine Operator/Pinch strength at least 75% of unaffected hand: Yes Goal:No pain with affected hand use: Yes Goal:Full use of affected hand in daily activities including: Yes Goal:Decrease scar hypersensitivity: Yes Anticipated Interventions Anticipated Interventions: A/AAROM/PROM, Strengthening, Scar Care, Triggerpoint Release, Desensitization, Modalities, Orthoses, Joint Protection/Energy Conservation, Fine Motor Coord/Jim, Sensory Stimulation, Education re assistive Equipment, Education re Diagnosis, Caregiver Training, Home Program Please do not hesitate to contact me at [phone] by phone or if you have questions or concerns regarding this new plan of care! Sincerely, Darlene Henderson, OTR/L, CHT
--- NOTE | 2022-12-20 15:29 | HP.OTREVAL ---
Dr. Seymour Erickson MD, It has been my pleasure to treat PASTOR JOHNSON over the last 4 visits for right lateral epicondylitis. Please see the progress note below for an update on the occupational therapy plan of care! Subjective: Pt is going to Dr. moon this afternoon. Objective/Function: right orthopaedic nurse strength 140# left is 150#. right lateral pinch 26#, L-29#. right tripod pinch 23#, L- 24# Plan Frequency: 1-2x /Week Duration: 4 Weeks Visits in this POC: c9 approve 1-2x week for 6 weeks 11-25-22/01-09-23 Plan: will cont to increase strength at pt tolerates. pt has gym eq. on his ex. please use to strengthen Goals - Goals Patient Goals: Regain Mobility, Regain Strength, Decrease Pain, Return to Work, Use Hand/Wrist/Arm Normally Again Goal:100% adherence to protocol: Yes Goal:Daily scar massage when approriate: Yes Goal:ROM equal to unaffected hand: Yes Goal:Cigarette Tester/Pinch strength at least 75% of unaffected hand: Yes Goal:No pain with affected hand use: Yes Goal:Full use of affected hand in daily activities including: Yes Goal:Decrease scar hypersensitivity: Yes Anticipated Interventions Anticipated Interventions: A/AAROM/PROM, Strengthening, Scar Care, Triggerpoint Release, Desensitization, Modalities, Orthoses, Joint Protection/Energy Conservation, Fine Motor Coord/Jim, Sensory Stimulation, Education re assistive Equipment, Education re Diagnosis, Caregiver Training, Home Program Please do not hesitate to contact me at [phone] by phone or if you have questions or concerns regarding this new plan of care! Sincerely, Darlene Henderson, OTR/L, CHT
--- NOTE | 2023-02-04 16:56 | HP.OTDCSUM_ITS ---
It has been my pleasure to treat PASTOR JOHNSON under orders from Dr. Seymour Erickson MD, for the diagnosis of right lateral epicondylitis for a total of 6 visit(s). Please see the following information for a summary of their discharge status. % Improvement: 70 Objective/Function: right marine gear keeper strength 120# (pt has had right marine gear keeper strength at 140#) left is 145#. right lateral pinch 22#, L-22#. right tripod pinch 16#, L- 16#. wrist resistive extension tested with FEt2 peak force in pounds right wrist ext. 18.7# left 20#. pt states he is IND with all ADLs and IADLs. 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 pt states he does notice soreness at the end of his 8 hour work day and more soreness toward the end of the week. Patient Goals: Regain Mobility, Regain Strength, Decrease Pain, Return to Work, Use Hand/Wrist/Arm Normally Again Goal:100% adherence to protocol: Yes Goal:Daily scar massage when approriate: Yes Goal:ROM equal to unaffected hand: Yes Goal:Equipment Tester/Pinch strength at least 75% of unaffected hand: Yes Goal:No pain with affected hand use: Yes Goal:Full use of affected hand in daily activities including: Yes Goal:Decrease scar hypersensitivity: Yes Plan: pt would benefit from health and wellness program or continue [facility] exercise program to continue to make gains to return to his PLOF. Pts job does require heavy lift requirements. Discharge Comments: pt was seen for 31 OT sessions following sx procedure of right elbow- lateral epi extensor tendon release. Pt make good gains with his ROM and strength - he does continue to have some residual soreness with increase use. pt made good gains with strength but would benefit from continued PRE of Health and wellness or HEP to continue to strength for pt to return to his PLOF as his job duties required heavy lifting. pt agrees with d/c If there are questions or concerns regarding this patient's occupational therapy, please fell free to call me at [phone]. Thank you for the referral of this patient. Sincerely, Darlene Henderson, OTR/L, CHT
== END 2023-02-04 19:00 | disposition home or self-care (01) ==
LOC: OT 16:30
PROVIDERS: PCP Internal Medicine; Referring Provider Orthopaedic Surgery Sports Medicine; Visit Provider Orthopaedic Surgery Sports Medicine
DX: M77.11 Lateral epicondylitis, right elbow (principal)
CPT/HCPCS: 97110; 97140; 97166; 97530

== ENCOUNTER → 2023-02-06 | Outpatient (CLI) | payer MEDICAID, SELFPAY | END | disposition home or self-care (01) | LOC: SL 13:53 | PROVIDERS: PCP Internal Medicine; Visit Provider Internal Medicine | DX: G47.33 Obstructive sleep apnea (adult) (pediatric) (principal) ==

== ENCOUNTER → 2023-02-28 | Outpatient (CLI) | payer MEDICAID, SELFPAY ==
--- NOTE | 2023-02-28 16:42 | RAD_ITS ---
STUDY: X-RAY - RIGHT ELBOW REASON FOR EXAM: Male, 47 years old. Pain. TECHNIQUE: 3 view(s) of the elbow. COMPARISON: March 2022. FINDINGS: Normal visualized humerus, radius and ulna. Normal radiocapitellar and ulnotrochlear articulations. Normal soft tissues. RAD/Elbow min 3 Views IMPRESSION: No interval change. Normal right elbow. Electronically Signed: Alfredito Villanueva MD at 9:13 EDT ,
== END | disposition home or self-care (01) ==
LOC: MTRAD 16:35
PROVIDERS: PCP Internal Medicine; Visit Provider Orthopaedic Surgery Sports Medicine
DX: M77.11 Lateral epicondylitis, right elbow (principal)
CPT/HCPCS: 73080

== ENCOUNTER → 2023-03-14 | Outpatient (CLI) | payer MEDICAID, SELFPAY ==
[2023-03-14 11:08] LABS: Hemoglobin A1c 5.9 % (3.8-5.6)
[2023-03-14 11:18] LABS: AST(SGOT) 36 U/L (15-37); Alanine Aminotransfer ALT/SGPT 94 U/L (16-61); Albumin, Serum 3.7 g/dL (3.2-5.0); Alkaline Phosphatase 118 U/L (45-117); Anion Gap 7 (5-15); BUN 19 mg/dL (7-18); BUN/Creat Ratio 13.7 RATIO (10-20); Calcium,Total 9.1 mg/dL (8.5-10.1); Chloride 106 mmol/L (98-107); Creatinine, Serum 1.39 mg/dL (0.70-1.30); EST Glomerular Filtration Rate 58 mL/min (>60); Est Glom Filt Rate - Afr Amer 70 mL/min (>60); Globulin 3.6 g/dL (2.2-4.2); Glucose 143 mg/dL (74-106); Potassium 3.8 mmol/L (3.5-5.1); Protein, Total 7.3 g/dL (6.4-8.2); Sodium Level 139 mmol/L (136-145)
== END | disposition home or self-care (01) ==
PROVIDERS: PCP Internal Medicine; Referring Provider Internal Medicine; Visit Provider Internal Medicine
DX: R74.8 Abnormal levels of other serum enzymes (principal); E11.9 Type 2 diabetes mellitus without complications
CPT/HCPCS: 36415; 80053; 83036

== ENCOUNTER → 2023-03-21 | Outpatient (CLI) | payer OTHER, SELFPAY ==
--- NOTE | 2023-03-21 16:14 | MRI_ITS ---
STUDY: MRI RIGHT ELBOW REASON FOR EXAM: Male, 48 years old. Post op -- PT C/O SOFT LUMP BY SURGICAL AREA TECHNIQUE: Standardized fat and water weighted pulse sequences were obtained in all 3 orthogonal planes. COMPARISON: April 18, 2022 FINDINGS: There is tract from prior intervention in the lateral humeral epicondyle. Normal radio-capitellum articulation. Normal radial collateral ligamentous complex. There is tendinosis with high-grade tear of the common extensor tendon, series 6 images and Normal ulnotrochlear articulation. Normal ulnar collateral ligamentous complex. There is tendinosis with tendon thickening of the common flexor tendon. The cubital tunnel is normal, with a normal ulnar nerve. Normal biceps tendon and distal insertion. Normal lacertus fibrosis. Normal brachialis musculotendinous insertion. Normal triceps tendon and teno-osseous insertion. Normal olecranon process. The visualized distal humerus, proximal radius, and ulna are normal. The visualized muscles of the distal arm and proximal forearm are normal. There is 5.0 x 3.0 x 1.7 cm lobular heterogeneous fluid collection in the posterior lateral epicondylar subcutaneous soft tissues. MRI/Upper Ext Joint Only(Routine) IMPRESSION: Postoperative change. Recurrent tear of the common extensor tendon. Joint effusion. Fluid collection in the lateral subcutaneous soft tissues. Electronically Signed: Sd Pittman MD at 19:16 EDT ,
== END | disposition home or self-care (01) ==
PROVIDERS: PCP Internal Medicine; Referring Provider Orthopaedic Surgery Sports Medicine; Visit Provider Orthopaedic Surgery Sports Medicine
DX: M77.11 Lateral epicondylitis, right elbow (principal)
CPT/HCPCS: 73221

== ENCOUNTER 2023-05-08 07:26 | Day surgery (SDC) | payer OTHER, MEDICAID, SELFPAY ==
[2023-05-08] VITALS (8 sets, daily range): BP systolic 97–116; BP diastolic 64–89; PULSE 60–78; RESP 12–20; TEMP 35.6–36.7; O2SAT 94–98; BMI 34.9
--- NOTE | 2023-05-08 07:54 | PCM.HP.STD ---
HPI - General HPI Narrative PASTOR JOHNSON, is a 48 M who presents for right elbow revision repair common extensor tendon, irrigation and debridement, platelet rich plasma injection. No changes to H and P. Discussed surgery, patient ok to go ahead with PRP, limited evidence for that but this is a revision so may help with healing, he will self pay for that. Right elbow marked, still some mild swelling under the incision consistent with a seroma. Plan for slowing down the rehab. No further questions. Patient RAB and narcotic counselling, patient wishes to proceed. MR#: [id number] Acct: [id number] Name: PASTOR JOHNSON Rep #: [id number] : 1975 Provider: Dr. Seymour Erickson MD Age/Sex: 48/M Location[place] [facility] [place] Status: Signed Intake Vital Signs 03/14/2316:21 Height 6 ft 3 in Weight: 288 lb BMI 36.0 BP 104/72 Blood Pressure Location Lt brachial Position Sitting Respiration 16 Pulse 115 H Pulse Source Monitor Temp 98.5 F Temp Source Temporal Pulse Oximetry (%) 95 Oxygen Delivery Method room air Intake Visit Reasons: RIGHT ELBOW Chief Complaint: 3 M FU. thumb pain Is patient in pain?: Yes Pain scale (1-10): 3 Allergies doxycycline Allergy (Unknown, Verified 03/22/23 14:41) Hivescolchicine Adverse Reaction (Severe, Verified 03/22/23 14:41) Emesis Medications aspirin 81 mg tablet,delayed release (Adult Aspirin Regimen) 81 mg PO QDAY #30 tabs 10/11/17 [Rx Confirmed 03/22/23] multivitamin,tx-ghbd-lftmzikd (Complete Multivitamin tablet) 1 tab PO DAILY 03/16/20 [History Confirmed 03/22/23] allopurinol 300 mg tablet 300 mg PO DAILY #90 tabs 02/13/22 [Rx Confirmed 03/22/23] hydrochlorothiazide 25 mg tablet 25 mg PO QPM 03/20/22 [History Confirmed 03/22/23] Lactobacil.acidophilus-Bifido.animalis 5 billion cell sprinkle capsule (Probiotic) 1 cap PO DAILY 08/15/22 [History Confirmed 03/22/23] ascorbic acid (vitamin C) 500 mg tablet (Vitamin C) 500 mg PO DAILY 08/15/22 [History Confirmed 03/22/23] omega-3 acid ethyl esters 1 gram capsule 1 cap PO DAILY 12/20/22 [History Confirmed 03/22/23] pramipexole 1.5 mg tablet 1.5 mg PO QHS #90 tabs 02/22/23 [Rx Confirmed 03/22/23] diltiazem HCl 300 mg capsule,24 hr,extended release 300 mg PO QPM #90 caps 03/14/23 [Rx Confirmed 03/22/23] gabapentin 400 mg capsule 400 mg PO QHS #90 caps 03/14/23 [Rx Confirmed 03/22/23] omeprazole 40 mg capsule,delayed release 40 mg PO DAILY #90 caps 03/14/23 [Rx Confirmed 03/22/23] lisinopril 40 mg tablet 40 mg PO QDAY #90 tabs 03/19/23 [Rx Confirmed 03/22/23] PFSH Medical History (Updated 03/22/23 @ 15:15 by Seymour Erickson MD) Arrhythmia Back pain Cardiology follow-up encounter Colon cancer screening COVID-19 Elevated liver enzymes Essential hypertension Gastric reflux Gout Health care maintenance History of echocardiogram History of stress test Hypersomnolence Loose, teeth Mixed hyperlipidemia Obesity Osteoarthritis of carpometacarpal joint of right thumb Pain of right thumb Prediabetes Restless legs Right lateral epicondylitis Strain of right biceps Tachycardia Type 2 diabetes mellitus Wears contact lenses Surgical History History of hernia repair History of sinus surgery Hx of colonoscopy Family History Mother HypertensionGrandfather Heart disease Myocardial infarction, Onset Age: 62Grandmother Hypertension Heart diseaseFather Liver failure Social History Smoking Status: Never smoker alcohol intake: current alcohol intake frequency: holidays/special occasions only substance use type: does not use caffeine: Yes Type: coffee Number of servings: 2 and tea Number of servings: 2 what type of physical activity do you participate in: walking frequency: 1-2 times per week HPI RIGHT ELBOW Details: Parts of this documentation were recorded by a scribe, this documentation accurately reflects the service provided and the decisions made by me, Dr. Seymour Erickson MD 03/22/23 [id number]. PASTOR JOHNSON is a 48 year old M here today for follow-up on persistent elbow pain and swelling recurrent seroma after surgery and continued pain about the lateral side of his elbow with some difficulty lifting after common extensor tendon origin repair followed by a cortisone injection and despite nonoperative management extensive patient has continued to experience difficulties from the elbow and difficulties returning back to their full heavy duties at work. We ordered an MRI and he is here today to follow-up on the results of that. Ortho Exam General General: Yes no acute distress Neurologic: Yes alert and Yes oriented x3 Psychologic: Yes reasonable and appropriate Right Wrist/Hand Skin/Wound: Yes CDI, No Swelling, No Ecchymosis, Yes nail intact and Yes capillary refill normal Contralateral Normal: Yes A1 christopher trigger: No Right Wrist: Yes ROM-Extension 0-60, ROM-Flexion 0-80, ROM-Pronation 0-80, ROM-Supination 0-90 and tender to palpate carpometacarpal joint; No Snuffbox tenderness, Millicent's Test, Palpable Nodule, Tender to palpate triangular fibrocartilage complex, Distal radioulnar joint, [facility] Grind, tender to palpate 1st dorsal compartment, Thenar Atrophy or Hypothenar Atrophy Motor: EPL: 5, FDP-2: 5, 1st Dorsal Interosseous: 5 and APB: 5 Sensation: Radial: I, Ulnar: I and Median: I Left Wrist/Hand Skin/Wound: No Swelling and No Ecchymosis Right Elbow Skin/Wound: Yes CDI, No eccymosis, No erythema and Yes Swelling (mild-moderate laterally) ROM: Yes Flexion 0-140 Test: No Valgus Stress Test, No Varus Stress Test, No TTP Medial Epicondyle, No TTP Lateral Epicondyle and No Pain w/ resist wrist ext Sensation: Radial: I, Ulnar: I and Median: I Motor: Elbow Extension: 5, Elbow Flexion: 5, EPL: 5, FDP-2: 5 and 1st Dorsal Interosseous: 5 ELBOW: The incision looks clean and dry full range of motion no tenderness with resisted wrist extension. 5/5 strength wrist extension and elbow flexion and extension. mild pain to palpate lateral epicondyle. Supplemental Info [facility] Imaging Services [address] [place] [address] Upper Ext Joint Only(Routine) MR#: [id number] Acct: [id number] Name: PASTOR JOHNSON Rep #: [id number] : 1975 M 48 From: Sd Pittman MD PCP: Dr. Sanjiv Singleton MD Status: REG CLI Study: Upper Ext Joint Only(Routine) Date of Exam: 03/21/23 Exam# [id number] Ordering Dr: Seymour Erickson MD STUDY: MRI RIGHT ELBOW REASON FOR EXAM: Male, 48 years old. Post op -- PT C/O SOFT LUMP BY SURGICAL AREA TECHNIQUE: Standardized fat and water weighted pulse sequences were obtained in all 3 orthogonal planes. COMPARISON: April 18, 2022 FINDINGS: There is tract from prior intervention in the lateral humeral epicondyle. Normal radio-capitellum articulation. Normal radial collateral ligamentous complex. There is tendinosis with high-grade tear of the common extensor tendon, series 6 images and 18 Normal ulnotrochlear articulation. Normal ulnar collateral ligamentous complex. There is tendinosis with tendon thickening of the common flexor tendon. The cubital tunnel is normal, with a normal ulnar nerve. Normal biceps tendon and distal insertion. Normal lacertus fibrosis. Normal brachialis musculotendinous insertion. Normal triceps tendon and teno-osseous insertion. Normal olecranon process. The visualized distal humerus, proximal radius, and ulna are normal. The visualized muscles of the distal arm and proximal forearm are normal. There is 5.0 x 3.0 x 1.7 cm lobular heterogeneous fluid collection in the posterior lateral epicondylar subcutaneous soft tissues. MRI/Upper Ext Joint Only(Routine) IMPRESSION: Postoperative change. Recurrent tear of the common extensor tendon. Joint effusion. Fluid collection in the lateral subcutaneous soft tissues. Electronically Signed: Sd Pittman MD at 19:16 EDT , [facility] mild OA of the right thumb on new xrays today Coding Level of Care Code Off vis,est,level 3 Diagnoses Pain of right thumb M79.644 Right lateral epicondylitis M77.11 Osteoarthritis of carpometacarpal joint of right thumb M18.11 Assessment and Plan Assessment and Plan (1) Pain of right thumb: Status: Acute (2) Right lateral epicondylitis: Status: Acute Plan: 48-year-old man following up on the continued right elbow pain after lateral extensor tendon origin repair the MRI I do concur with her report of that it does look like there is a repeat tear there part of the common extensor origin. The patient also has a seroma there this is likely from failure of the repair. The patient cannot continue on with nonoperative management if they so desire this to be rest ice anti-inflammatories activity modifications and cortisone injections although I think that I would have a low chance of success given the communication with the intra-articular nature of the joint fluid. The surgical option here would be a revision repair. I do not see any tissue loss I do not think the patient would benefit from allograft augmentation or patch but I think it would be durán to perform biologic augmentation in the form of platelet rich plasma injection at the time of surgery. We discussed pros cons risk benefits of each method of treatment the patient would like to go ahead with surgery. We have booked and consented the patient today for right elbow revision repair common extensor tendon, irrigation and debridement, platelet rich plasma injection. Recovery would be along the same timeline albeit slightly slower as this would be a revision repair. Pros and cons risks and benefits were discussed with the patient including but not limited to infection, pain, stiffness, bleeding, damage to surrounding structures, neurovascular injury, recurrence or retear, failure or wear of hardware or fixation, instability, fracture, deep vein thrombosis and pulmonary embolism, anesthetic risks, , patient dissatisfaction, need for further surgery and other risks. Patient understood and wished to proceed with surgery, and signed the informed consent documentation. [facility] Medical History (Updated 04/24/23 @ 09:07 by Brianna Alonzo) Arrhythmia Back pain BiPAP (biphasic positive airway pressure) dependence Cardiology follow-up encounter Colon cancer screening COVID-19 De Quervain's tenosynovitis, right Elevated liver enzymes Essential hypertension Fatty liver Gastric reflux Gout Health care maintenance History of echocardiogram History of stress test Hypersomnolence Loose, teeth Mixed hyperlipidemia Obesity Osteoarthritis of carpometacarpal joint of right thumb Pain of right thumb Prediabetes Restless legs Right lateral epicondylitis Strain of right biceps Tachycardia Type 2 diabetes mellitus Wears contact lenses Home Medications aspirin 81 mg tablet,delayed release (Adult Aspirin Regimen) 81 mg PO QDAY #30 tabs 10/11/17 [Rx Last Taken Unknown] multivitamin,ks-vman-qmpofcml (Complete Multivitamin tablet) 1 tab PO DAILY 03/16/20 [History Last Taken Unknown] Lactobacil.acidophilus-Bifido.animalis 5 billion cell sprinkle capsule (Probiotic) 1 cap PO DAILY 08/15/22 [History Last Taken Unknown] ascorbic acid (vitamin C) 500 mg tablet (Vitamin C) 500 mg PO DAILY 08/15/22 [History Last Taken Unknown] omega-3 acid ethyl esters 1 gram capsule 1 cap PO DAILY 12/20/22 [History Last Taken Unknown] pramipexole 1.5 mg tablet 1.5 mg PO QHS #90 tabs 02/22/23 [Rx Last Taken Unknown] diltiazem HCl 300 mg capsule,24 hr,extended release 300 mg PO QPM #90 caps 03/14/23 [Rx Last Taken Unknown] gabapentin 400 mg capsule 400 mg PO QHS #90 caps 03/14/23 [Rx Last Taken Unknown] omeprazole 40 mg capsule,delayed release 40 mg PO DAILY #90 caps 03/14/23 [Rx Last Taken Unknown] lisinopril 40 mg tablet 40 mg PO QDAY #90 tabs 03/19/23 [Rx Last Taken Unknown] allopurinol 300 mg tablet 300 mg PO DAILY #90 tabs 05/06/23 [Rx Last Taken Unknown] hydrochlorothiazide 25 mg tablet 25 mg PO QPM #90 tabs 05/06/23 [Rx Last Taken Unknown] Allergy/AdvReac Type Severity Reaction Status Date / Time doxycycline Allergy Unknown Hives Verified 04/24/23 09:01 colchicine AdvReac Severe Emesis Verified 04/24/23 09:01 Family History Mother Hypertension Grandfather Heart disease Myocardial infarction, Onset Age: 62 Grandmother Hypertension Heart disease Father Liver failure Surgical History (Updated 04/24/23 @ 09:06 by Brianna Alonzo) History of hernia repair History of sinus surgery Hx of colonoscopy Hx of elbow surgery Social History Smoking Status: Never smoker alcohol intake: current alcohol intake frequency: holidays/special occasions only substance use type: does not use caffeine: Yes Type: coffee Number of servings: 2 and tea Number of servings: 2 what type of physical activity do you participate in: walking frequency: 1-2 times per week
[2023-05-08] MEDS: Lactated Ringers 1,000 ML 15 ML IV (08:04)
[2023-05-08] MEDS: Cefazolin 3 GM in 0.9% Normal Saline (100mL Bag) 100 ML IV (08:55)
[2023-05-08 09:11] LABS: Bedside Glucose 110 mg/dL (74-106)
[2023-05-08] MEDS: Bupivacaine 0.25% 30 ML Vial (10:15)
--- NOTE | 2023-05-08 10:26 | OP.PCM_ITS ---
Problems Associated Problem List Diagnoses (1) Right lateral epicondylitis: (2) Partial tear of common extensor tendon of right elbow: Report of Operation Date of Procedure: 05/08/23 Pre-Operative Diagnosis: recurrent tear common extensor tendon right elbow Post-Operative Diagnosis: same Surgery/Procedure Performed:: right elbow revision repair common extensor tendon, irrigation and debridement, injection platelet rich plasma Surgeon: Seymour Erickson Type of Anesthesia: General and Local Anesthesiologist: Nicola Sky Estimated Blood Loss (mL): 25 Description of Procedure: Patient brought to the operating room theater. Placed supine on the operating room table. All bony prominences appropriately padded. 3 g IV Ancef administered prior to the start of the procedure. General anesthesia induced. Patient transferred right side up lateral decubitus with the aid of the beanbag positioner. Axillary roll placed. SCDs on the legs. Upper extremity prepped and draped in the usual sterile fashion with chlorhexidine-based prep solution allowing over 3 minutes drying time prior to draping. Preoperative timeout performed to confirm the site patient and the surgery. Made a 3 inch incision curved centered over the lateral aspect of the elbow at the lateral epicondyle, at the site of the prior incision. Carried dissection down through skin and subcutaneous tissue achieve meticulous hemostasis. Wound cultures sent for aerobes and anaerobes, from the seroma fluid of about 4cc. Loo ked benign / bland light straw colored fluid. Identified the lateral epicondyle. Removed the prior sutures and anchor. The repair looked intact, but upon elevating the superficial tissues there was a tear of the deep fibers. I used a rongeur to create bleeding bed for healing at the lateral epicondyle. I then placed using the drill sleeve drill guide a 1.8 mm Arthrex all suture fiber tack anchor. I set this in place gentle back pressure. I placed 2 of these anchors. I then used the #2 FiberWire suture in a locking krakow stitch up and down the CET, keeping forearm pronated, and incorporating the deep fibers at the tear site. I then passed the repair suture through the eyelet and then passed this in knotless fashion back through the anchor cutting the suture short achieving appropriate tension on the repair for both anchors. Tourniquet let down. Hemostasis achieved meticulous. Wound thoroughly irrigated. Whole blood was spun down per PRP protocol using [employer] system. Leukocyte rich, 9.5 minute spin time. 8ml ACDA anticoagulant. Buffy coat based system. 4,000rpm. 3cc of PRP was then injected at the repair site. Subcutaneous tissue closed with 2-0 Vicryl sutures skin with 3-0 ethilon. 10 cc of quarter percent bupivacaine instilled around the incision. Skin cleaned with wet and dry dressing followed application of Adaptic gauze abdominal pad dressing sterile cast padding, posterior fiberglass splint elbow at 90 degrees, and Nima wrap loosely wrapped and a sling. Patient woken up from the general anesthetic transferred off the operating table and taken to postanesthetic care unit in stable condition. All sponge needle instrument counts were correct no complications. Plan patient discharged home according to day surgery criteria follow-up in the office in 2 days time. Grafts/Implants Used: arthrex 1.8mm fiber chey suture anchor x2 cpt 97795 Complications none Admit VTE Documentation VTE Present on Admission: No VTE Mechan Device Prophylaxis: SCD's VTE Pharm Prophylaxis ordered?: No Reason prophylaxis not ordered:: Treatment Not Indicated Procedures Musculoskeletal 20xxx-29xxx: Other Procedure See Report
--- NOTE | 2023-05-08 10:41 | DCINST_ITS ---
Discharge Instructions Diet Discharge Diet: No restrictions Activity Lifting Restrictions: no lifting with hand or shoulder Keep extremity elevated above heart level: Operative Extremity Dressing / Incision Call your doctor if your incision/area has: Continuous Slow Oozing, Sudden Increased Bleeding, Increased Pain/ Swelling, Increased Redness, Foul Smelling Discharge and Swelling at the incision site Change Dressing in: leave in place till F/U Follow Up Care Please Follow Up With: Seymour Erickson MD When: 2 days Test Results: Test results from this visit will be discussed in further detail at your follow- up appointment, if applicable. Discharge Plan Admission Attending Provider: Seymour Erickson Primary Care Provider: Sanjiv Singleton Discharge Orders/Prescriptions Prescriptions: New oxycodone-acetaminophen [Percocet] 5-325 mg tablet 1 tab PO Q4H MDD 6 PRN (Reason: pain) 5 Days Qty: 20 0RF No Action multivitamin,na-jvyr-immosviy tablet 1 tab PO DAILY omega-3 acid ethyl esters 1 gram capsule 1 cap PO DAILY diltiazem HCl 300 mg capsule,extended release 24 hr 300 mg PO QPM Qty: 90 3RF omeprazole 40 mg capsule,delayed release(DR/EC) 40 mg PO DAILY Qty: 90 3RF Rx Instructions: Take 30 minutes before breakfast gabapentin 400 mg capsule 400 mg PO QHS Qty: 90 3RF ascorbic acid (vitamin C) [Vitamin C] 500 mg Tablet 500 mg PO DAILY Probiotic 5 billion cell Capsule, Sprinkle 1 cap PO DAILY aspirin [Adult Aspirin Regimen] 81 mg tablet,delayed release (DR/EC) 81 mg PO QDAY Qty: 30 1RF pramipexole 1.5 mg tablet 1.5 mg PO QHS Qty: 90 3RF lisinopril 40 mg tablet 40 mg PO QDAY Qty: 90 3RF allopurinol 300 mg tablet 300 mg PO DAILY Qty: 90 3RF hydrochlorothiazide 25 mg tablet 25 mg PO QPM Qty: 90 1RF Referrals / Follow Up: Sanjiv Singleton MD [Primary Care Provider] - Seymour Erickson MD [Med Staff - Active Staff] - Disposition Disposition (needs filled in before D/C Order can be placed): Home, Self Care
[2023-05-08] MEDS: Oxycodone/Apap 5/325 Tablet PO (12:31)
== END 2023-05-08 13:53 | disposition home or self-care (01) ==
LOC: SDC 07:36 → AC 07:36
PROVIDERS: PCP Internal Medicine; Referring Provider Orthopaedic Surgery Sports Medicine; Visit Provider Orthopaedic Surgery Sports Medicine
PROC: (CPT 24359; principal; 2023-05-08 08:45)
DX: S56.519A Strain of other extensor muscle, fascia and tendon at forearm level, unspecified arm, initial encounter (principal); E11.9 Type 2 diabetes mellitus without complications; I10 Essential (primary) hypertension; M18.11 Unilateral primary osteoarthritis of first carpometacarpal joint, right hand; M77.11 Lateral epicondylitis, right elbow; E78.2 Mixed hyperlipidemia; Z86.16 Personal history of COVID-19; Z79.82 Long term (current) use of aspirin; M79.644 Pain in right finger(s); K21.9 Gastro-esophageal reflux disease without esophagitis; M10.9 Gout, unspecified; G47.30 Sleep apnea, unspecified
CPT/HCPCS: 24359; 01712; 82962; 87070; 87075; 87102; 87205; 87206; C1713; J7120

== ENCOUNTER 2023-05-08 08:30 | Day surgery (SDC) | payer SELFPAY | END 2023-05-08 23:59 | disposition home or self-care (01) | PROVIDERS: PCP Internal Medicine; Referring Provider Orthopaedic Surgery Sports Medicine; Visit Provider Orthopaedic Surgery Sports Medicine | DX: S56.519A Strain of other extensor muscle, fascia and tendon at forearm level, unspecified arm, initial encounter (principal); E11.9 Type 2 diabetes mellitus without complications; I10 Essential (primary) hypertension; M18.11 Unilateral primary osteoarthritis of first carpometacarpal joint, right hand; M77.11 Lateral epicondylitis, right elbow; E78.2 Mixed hyperlipidemia; Z86.16 Personal history of COVID-19; Z79.82 Long term (current) use of aspirin; M79.644 Pain in right finger(s); K21.9 Gastro-esophageal reflux disease without esophagitis; M10.9 Gout, unspecified; G47.30 Sleep apnea, unspecified ==

== ENCOUNTER → 2023-05-30 | Outpatient (CLI) | payer MEDICAID, SELFPAY | END | disposition home or self-care (01) | LOC: LAB 10:00 | PROVIDERS: PCP Internal Medicine; Visit Provider Orthopaedic Surgery Sports Medicine | DX: T79.2XXA Traumatic secondary and recurrent hemorrhage and seroma, initial encounter (principal) | CPT/HCPCS: 87205 ==

== ENCOUNTER 2023-06-10 09:15 | Outpatient (RCR) | payer OTHER, MEDICAID, SELFPAY ==
[2023-06-03 08:37] VITALS: BP 132/83; PULSE 87; RESP 16; TEMP 36.1; BMI 35.6
--- NOTE | 2023-06-03 11:12 | PCM.WC.HP ---
History of Present Illness Date of Service: 06/03/23 Chief Complaint: Right lateral elbow wound after surgery 05/08/23 History of Wound: 48 year old male presents for evaluation of his non healing surgical wound from 05/08/23 of his right lateral elbow. He initially injured this elbow at work on 03/19/22 while lifting a cabinet. He had surgery 08/22/22 for right elbow arthroscopy debridement and repair of common extensor by Dr. Erickson. Patient states that he was doing well with OT, then developed a seroma on lateral side of elbow that would come and go. On 05/08/23 he went back to surgery for right elbow revision repair common extensor tendon, irrigation and debridement, injection platelet rich plasma. Last week the incision and he was referred to the wound healing center for further evaluation and treatment of this wound. He is off work at this time. He has a history of Pre diabetes, last HbA1c 5.9 from 03/14/23. History of cardiac arrhythmia, tachycardia, HTN, hyperlipidemia, Sleep apnea, and back pain. He denies any fever, chills, nausea or vomiting. Progress of Wound: Right lateral elbow incision is healed except for the center of the incision there is a small separation with undermining, especially at 12 o'clock. There is no erythema. Patient states that Dr. Erickson did a wound culture last week and started him on Cephalexin and clindamycin. Wound culture from 05/30/23 did not have enough volume to centrifuge the specimen. The gram stain showe +2 WBC, +4 RBC, and +1 Gram positive cocci. [facility] Medical History Arrhythmia Back pain BiPAP (biphasic positive airway pressure) dependence Cardiology follow-up encounter Colon cancer screening COVID-19 De Quervain's tenosynovitis, right Elevated liver enzymes Essential hypertension Fatty liver Gastric reflux Gout Health care maintenance History of echocardiogram History of stress test Hypersomnolence Loose, teeth Mixed hyperlipidemia Obesity Osteoarthritis of carpometacarpal joint of right thumb Pain of right thumb Partial tear of common extensor tendon of right elbow Prediabetes Restless legs Right lateral epicondylitis Strain of right biceps Tachycardia Type 2 diabetes mellitus Wears contact lenses Home Medications pramipexole 1.5 mg tablet 1.5 mg PO QHS #90 tabs 02/22/23 [Rx Last Taken Unknown] diltiazem HCl 300 mg capsule,24 hr,extended release 300 mg PO QPM #90 caps 03/14/23 [Rx Last Taken Unknown] gabapentin 400 mg capsule 400 mg PO QHS #90 caps 03/14/23 [Rx Last Taken Unknown] omeprazole 40 mg capsule,delayed release 40 mg PO DAILY #90 caps 03/14/23 [Rx Last Taken 05/08/23] lisinopril 40 mg tablet 40 mg PO QDAY #90 tabs 03/19/23 [Rx Last Taken Unknown] allopurinol 300 mg tablet 300 mg PO DAILY #90 tabs 05/06/23 [Rx Last Taken Unknown] hydrochlorothiazide 25 mg tablet 25 mg PO QPM #90 tabs 05/06/23 [Rx Last Taken Unknown] cephalexin 500 mg capsule 500 mg PO Q6H infection 7 days #28 caps 05/28/23 [Rx Last Taken Unknown] clindamycin HCl 300 mg capsule 300 mg PO Q6H infection 10 days #40 caps 05/30/23 [Rx Last Taken Unknown] Allergy/AdvReac Type Severity Reaction Status Date / Time doxycycline Allergy Unknown Hives Verified 06/03/23 10:05 colchicine AdvReac Severe Emesis Verified 06/03/23 10:05 Family History Mother Hypertension Grandfather Heart disease Myocardial infarction, Onset Age: 62 Grandmother Hypertension Heart disease Father Liver failure Surgical History History of hernia repair History of sinus surgery Hx of colonoscopy Hx of elbow surgery Social History Smoking Status: Never smoker alcohol intake: current alcohol intake frequency: holidays/special occasions only substance use type: does not use caffeine: Yes Type: coffee Number of servings: 2 and tea Number of servings: 2 what type of physical activity do you participate in: walking frequency: 1-2 times per week ROS Constitutional Constitutional: Denies body ache(s), chills or fever(s) Eyes Eyes: Reports none ENT HEENT: Reports other Details: history of chronic sinusitis with multiple sinus procedures Cardiovascular Cardiovascular: Reports irregular heart rhythm Respiratory/Chest Respiratory/Chest: Reports none Gastrointestinal Gastrointestinal: Reports none Genitourinary Genitourinary: Reports none Musculoskeletal Musculoskeletal: Reports as per HPI Integumentary Integumentary: Reports as per HPI Neurologic Neurologic: Reports none Psychiatric Psychiatric: Reports none Endocrine Endocrinology: Reports none Vital Signs Vital Signs Vital Signs: 06/03/23 08:37 Temperature 96.9 F L Temperature Source Temporal Pulse Rate 87 Respiratory Rate 16 Blood Pressure 132/83 H Blood Pressure Mean 99 Blood Pressure Source Monitor Blood Pressure Position Sitting Blood Pressure Location Left Arm Oxygen Delivery Method Room Air Weight Weight: 285 lb Body Mass Index (BMI) 35.6 Physical Exam Const alert, oriented x3, no apparent distress and well nourished General Appearance: cooperative HEENT normocephalic Head and Scalp: normocephalic Eyes General Eye: normal appearance of both eyes Neck full ROM Lymph Lymphatic: no lymphedema noted Resp normal respiratory effort, normal air movement and clear to auscultation bilaterally Effort and Inspection: able to speak in complete sentences Cardio regular rate and regular rhythm GI soft to palpation, non-tender and non-distended Back/Spine normal ROM Extremity normal capillary refill Extremity Narrative: Right lateral elbow incision is healed except for the center of the incision there is a small separation with undermining, especially at 12 o'clock. There is no erythema. Skin Wound Narrative: Right lateral elbow incision is healed except for the center of the incision there is a small separation with undermining, especially at 12 o'clock. There is no erythema. Neuro oriented x3 and moves all extremities Debridement Note Debridement Note Wound debrided: Lateral elbow incision Laterality: Right Type of Debridement: Excisional debridement Anesthesia Used: 5% Lidocaine Gel Depth: Down to and including healthy tissue and in the subcutaneous layer Percentage of wound debrided: 100 Instrument Used: - (#1) Tissue Removed: non viable tissue and slough Severity: Fat Layer Exposed Bleeding Controlled with: Pressure and Compression and gauze Patient tolerated procedure: Patient tolerated procedure well Debridement Free Text: Probed wound opening and debrided the undersurface of the dermis and subcutaneous tissue in the undermined area surrounding the wound opening. Post-Debridement Measurements and Additional Note: Post-Debridement Measurements/Treatment WC - Nurse 1 - General Ulcer Assessment Start: 06/03/23 08:36 Freq: Status: Active Protocol: WC.LOWEXT Activity Type Activity Date Activity User E-sign Co-sign Detail Recorded Client Recorded Date Recorded By Document 06/03/23 08:37 [facility] Desktop 06/03/23 08:50 BM 06/03/23 08:37 - Today's Visit Information Type of service Follow-up Visit (Physician/ACCESSORIES REPAIRER ) Arrival Mode Ambulatory Transfer Assistance None Accompanied by Patient Identification Verified (Name & Yes ) Patient Requires Transmission-Based No Precautions Height and Weight Height 6 ft 3 in Weight 285 lb Weight in Pounds 285.0 lbs Body Mass Index (BMI) 35.6 BMI Classification Obese BSA - Shameka 2.55 Vital Signs Temperature (97.8 F-99.1 F) 96.9 F L Temperature Source Temporal Pulse Rate (60-100) 87 Pulse Location Monitor Respiratory Rate (12-18) 16 Respiratory rate source Observation Oxygen Delivery Method Room Air Blood Pressure (90/60-120/80) 132/83 H Blood Pressure Mean 99 Source Monitor Position Sitting Blood Pressure Location Left Arm History Since Last Visit- (Skip if this is Patient's initial visit) Left Footwear Regular Shoe Right Footwear Regular Shoe Pain Scale: 0-10 Numeric Is Patient Pain Free? Yes Communication Assessment Preferred language Yemeni Hot Frame Tender Required No Able to Read Yes Able to Write Yes Communication Tools None Right Hearing Abillity Normal Left Hearing Abillity Normal Visual Assistive Devices Glasses, Contacts Teaching Assessment Preferences Verbal,Written, Audio/Visual, Demonstration Barriers to Learning None Readiness To Learn Excellent Willingness to Engage in Self Management High Activies Readiness to Engage in Self Management High Activities Anxiety Level Calm Cooperation Cooperative Perception Coherent Interest in Health Problem Asks Questions Education Importance Acknowledges Need Does Patient Smoke tobacco or other No substances Smoking Status Never smoker Is Patient Diabetic Yes Functional Assessment Recent Decline in Ability to Perform Denies Any Declines Culture/Cheondoism/Caul Fat Puller Cultural/Cheondoism Needs that may affect No Treatment Plan Teaching: Wound Center *Welcome to the Wound Center -Person Taught Patient, Significant Other -Teaching Method Discussion -Response to teaching Verbalize understanding Welcome to the Wound Care Center English MORRISON - Nurse 1 - General Ulcer Measurement Start: 06/03/23 08:36 Freq: Status: Active Protocol: Activity Type Activity Date Activity User E-sign Co-sign Detail Recorded Client Recorded Date Recorded By Document 06/03/23 08:37 [facility] Desktop 06/03/23 08:50 BMF 06/03/23 08:37 Wound Center Nurse 1 #1- R ELBOW (POST OP) -Combined with other wound No -Current Size (cm) - Length 0.1 -Current Size (cm) - Width 0.1 -Current Size (cm) - Depth 0.1 -Total Square Cm 0.01 -Date of Last Picture (Recall this 06/03/23 field) -Photo Taken Yes -Tunneling No -Undermining/Tunneling No -Circular Undermining No -Exudate Amt Medium -Exudate Type Serous -Wound Margin Distinct, Outline Attached -Texture (Colleen-wound Skin Appearance) Assessed, Localized Edema ,Scarring -Moisture (Colleen-wound Skin Appearance) Assessed -Color (Colleen-wound Skin Appearance) Erythema -Temperature (Colleen-wound Skin No Abnormality Appearance) (Pt Warm) -Tenderness on Palpation (Colleen-wound No Skin Appearance) -Ulcer Cleansing Rinsed/ Irrigated with Saline -Foul Odor after Cleansing No -Anesthetic Used 5% Lidocaine Gel WC - Nurse 2 - General Ulcer CM Notes Start: 06/03/23 08:36 Freq: Status: Active Protocol: Activity Type Activity Date Activity User E-sign Co-sign Detail Recorded Client Recorded Date Recorded By Document 06/03/23 09:17 Desktop 06/03/23 09:20 06/03/23 09:17 Wound Center Nurse 2 -Time 09:18 -Correct Patient Yes -Correct Side, Site, Position Yes -Correct Procedure Yes -Procedure Performed Yes -Type of Procedure Debridement -Clinical Debridement Subcutaneous -Tissue Removed Subcutaneous -Post Debridement (cm) - Length 0.2 -Post Debridement (cm) - Width 0.2 -Post Debridement (cm) - Depth 0.3 -Total Square (Post) (cm) 0.04 -Area of Debridement (cm) - Length 0.2 -Area of Debridement (cm) - Width 0.2 -Total Square (Area) (cm) 0.04 -Tunneling Yes -Tunneling Position (O'clock) 12 -Tunneling Distance (cm) 0.7 -Undermining/Tunneling No -Circular Undermining No -Wound/Ulcer Outcome Not Healed -Ulcer Cleansing Rinsed/ Irrigated with Saline -Bioengineered Tissue No -Bleeding Controlled with Pressure -Treatment Response Procedure Tolerated Well -Offloading No -Debridement - Subq, 1st 20sq cm Yes Pain Scale: 0-10 Numeric Is Patient Pain Free? Yes - Nurse 3 - General Ulcer D/C NN Start: 06/03/23 08:36 Freq: Status: Active Protocol: Activity Type Activity Date Activity User E-sign Co-sign Detail Recorded Client Recorded Date Recorded By Document 06/03/23 09:28 [facility] Desktop 06/03/23 09:29 [facility] 06/03/23 09:28 Wound Care Center Nurse 3 #1- R ELBOW (POST OP) -Ulcer Cleansing Rinsed/ Irrigated with Saline -Foul Odor after Cleansing No -Primary Dressing Applied Nugauze, Iodoform 1/4in -Other Dressing PER DL DISHWASHER -Primary Dressing Covered/Secured with Dry Gauze, Secured with Tape -Nugauze, Iodoform 1/4in 1 Right -Compression Wrap Nima Wrap -Other NIMA TO SECURE Treatment Response Procedure Tolerated Well Pain Scale: 0-10 Numeric Is Patient Pain Free? Yes WC - Visit Discharge Discharge Condition Stable Ambulatory Status Ambulatory Transportation Private Auto Accompanied by Charges/Coding Visit Charges Office Visits / Consults: 50420 OV L3 Est (25 modifier) Procedures Integumentary 111xxx-113xx: 42090 Demetria subq tissue 20 sq cm/< Assessment/Plan Assessment/Plan (1) Right lateral epicondylitis: CODE(S): M77.11 - Lateral epicondylitis, right elbow (2) Delayed surgical wound healing: CODE(S): T81.89XA - Other complications of procedures, not elsewhere classified, initial encounter PLAN: Plan Patient was evaluated at the wound healing center. Wound care - Pack 1/4 Iodoform gauze into the undermined area at 12 o'clock daily and cover with gauze. The patient mentioned that Dr. Erickson wanted Trena used, but with the small size of the wound opening, it is too difficult to place in the wound and the Iodoform will hopefully be able to help decrease that undermining to heal this opening. Compression - NIMA wrap start distally and wrap up arm. Lifting restriction and mobility as prescribed by Dr. Erickson. Continue antibiotics as previously prescribed. Follow up one week. Call if develop any concerns.
[2023-06-10 09:18] VITALS: BP 134/87; PULSE 85; RESP 16; TEMP 36.1; BMI 35.6
--- NOTE | 2023-06-10 11:38 | PCM.WC.PN ---
History of Present Illness Date of Service: 06/10/23 Chief Complaint: Right lateral elbow wound after surgery 05/08/23 History of Wound: 48 year old male presents for evaluation of his non healing surgical wound from 05/08/23 of his right lateral elbow. He initially injured this elbow at work on 03/19/22 while lifting a cabinet. He had surgery 08/22/22 for right elbow arthroscopy debridement and repair of common extensor by Dr. Erickson. Patient states that he was doing well with OT, then developed a seroma on lateral side of elbow that would come and go. On 05/08/23 he went back to surgery for right elbow revision repair common extensor tendon, irrigation and debridement, injection platelet rich plasma. Last week the incision and he was referred to the wound healing center for further evaluation and treatment of this wound. He is off work at this time. He has a history of Pre diabetes, last HbA1c 5.9 from 03/14/23. History of cardiac arrhythmia, tachycardia, HTN, hyperlipidemia, Sleep apnea, and back pain. He denies any fever, chills, nausea or vomiting. Progress of Wound: Right lateral elbow incision has a small separation with undermining, especially at 12 o'clock. It is smaller and the undermining has decreased with the packing of Iodoform gauze. There is no erythema. They are not having a difficulty with the wound care, but his states that she is starting to have a difficult time packing the iodoform into the undermining because of the decrease in size. Objective Data Objective Data Vital Signs: Vital Signs Temp Pulse Resp BP O2 Del Method 97 F L 85 16 134/87 H Room Air 06/10/23 09:18 06/10/23 09:18 06/10/23 09:18 06/10/23 09:18 06/10/23 09:18 Oxygen Delivery Method Room Air Weight: 285 lb Body Mass Index (BMI) 35.6 Charges/Coding Procedures Integumentary 111xxx-113xx: 47945 Demetria subq tissue 20 sq cm/< Debridement Note Debridement Note Wound debrided: Lateral elbow incision Laterality: Right Type of Debridement: Excisional debridement Anesthesia Used: 5% Lidocaine Gel Depth: Down to and including healthy tissue and in the subcutaneous layer Percentage of wound debrided: 100 Instrument Used: 3mm curette Tissue Removed: non viable tissue and slough Severity: Fat Layer Exposed Bleeding Controlled with: Pressure and Compression and gauze Patient tolerated procedure: Patient tolerated procedure well Post-Debridement Measurements and Additional Note: Post-Debridement Measurements/Treatment - Nurse 1 - General Ulcer Assessment Start: 06/03/23 08:36 Freq: Status: Active Protocol: JES Activity Type Activity Date Activity User E-sign Co-sign Detail Recorded Client Recorded Date Recorded By Document 06/03/23 08:37 [facility] Desktop 06/03/23 08:50 BMF Document 06/10/23 09:18 [facility] Desktop 06/10/23 09:26 BMF 06/03/23 06/10/23 08:37 09:18 WC - Today's Visit Information Type of service Follow-up Visit Follow-up Visit (Physician/JEWELRY ENGRAVER (Physician/JEWELRY ENGRAVER ) ) Arrival Mode Ambulatory Ambulatory Transfer Assistance None None Accompanied by Patient Identification Verified (Name & Yes Yes ) Patient Requires Transmission-Based No No Precautions Height and Weight Height 6 ft 3 in Weight 285 lb Weight in Pounds 285.0 lbs Body Mass Index (BMI) 35.6 35.6 BMI Classification Obese Obese BSA - Shameka 2.55 Vital Signs Temperature (97.8 F-99.1 F) 96.9 F L 97 F L Temperature Source Temporal Temporal Pulse Rate (60-100) 87 85 Pulse Location Monitor Monitor Respiratory Rate (12-18) 16 16 Respiratory rate source Observation Observation Oxygen Delivery Method Room Air Room Air Blood Pressure (90/60-120/80) 132/83 H 134/87 H Blood Pressure Mean (mm Hg) 99 102 Source Monitor Monitor Position Sitting Sitting Blood Pressure Location Left Arm Left Arm History Since Last Visit- (Skip if this is Patient's initial visit) Have you changed medications since your No last visit? Any new allergies or adverse reactions No Had a fall/change in ADL's that may No increase risk of falls Signs or symptoms of abuse and/or No neglect since last visit Have you been in the hospital since your No last visit? Has dressing in place as prescribed Yes Has compression in place as prescribed N/A Has offloadiing in place as prescribed N/A Experienced any changes in pain level or No management Left Footwear Regular Shoe Regular Shoe Right Footwear Regular Shoe Regular Shoe Pain Scale: 0-10 Numeric Is Patient Pain Free? Yes Yes Communication Assessment Preferred language Khmer Field Evidence Technician Required No Able to Read Yes Able to Write Yes Communication Tools None Right Hearing Abillity Normal Left Hearing Abillity Normal Visual Assistive Devices Glasses, Contacts Teaching Assessment Preferences Verbal,Written, Audio/Visual, Demonstration Barriers to Learning None Readiness To Learn Excellent Willingness to Engage in Self Management High Activies Readiness to Engage in Self Management High Activities Anxiety Level Calm Cooperation Cooperative Perception Coherent Interest in Health Problem Asks Questions Education Importance Acknowledges Need Does Patient Smoke tobacco or other No substances Smoking Status Never smoker Is Patient Diabetic Yes Functional Assessment Recent Decline in Ability to Perform Denies Any Declines Culture/Evangelical/Hair Tinter Cultural/Evangelical Needs that may affect No Treatment Plan Teaching: Wound Center *Welcome to the Wound Center -Person Taught Patient, Significant Other -Teaching Method Discussion -Response to teaching Verbalize understanding Welcome to the Wound Care Center English MORRISON - Nurse 1 - General Ulcer Measurement Start: 06/03/23 08:36 Freq: Status: Active Protocol: Activity Type Activity Date Activity User E-sign Co-sign Detail Recorded Client Recorded Date Recorded By Document 06/03/23 08:37 [facility] Desktop 06/03/23 08:50 [facility] Document 06/10/23 09:18 [facility] Desktop 06/10/23 09:26 BMF 06/03/23 06/10/23 08:37 09:18 Wound Center Nurse 1 #1- R ELBOW (POST OP) -Combined with other wound No No -Current Size (cm) - Length 0.1 0.3 -Current Size (cm) - Width 0.1 0.2 -Current Size (cm) - Depth 0.1 0.3 -Total Square Cm 0.01 0.06 -Date of Last Picture (Recall this 06/03/23 field) -Photo Taken Yes No -Tunneling No No -Undermining/Tunneling No No -Circular Undermining No No -Exudate Amt Medium Medium -Exudate Type Serous Serosanguineous -Wound Margin Distinct, Distinct, Outline Outline Attached Attached -Granulation Amt Large (67-100%) -Granulation Quality Red -Slough/Fibrin No -Necrosis Amt None Present (0 %) -Texture (Colleen-wound Skin Appearance) Assessed, Assessed, Localized Edema Localized Edema ,Scarring ,Scarring -Moisture (Colleen-wound Skin Appearance) Assessed Assessed -Color (Colleen-wound Skin Appearance) Erythema Assessed -Temperature (Colleen-wound Skin No Abnormality No Abnormality Appearance) (Pt Warm) (Pt Warm) -Tenderness on Palpation (Colleen-wound No No Skin Appearance) -Ulcer Cleansing Rinsed/ Rinsed/ Irrigated with Irrigated with Saline Saline -Foul Odor after Cleansing No No -Anesthetic Used 5% Lidocaine 5% Lidocaine Gel Gel - Nurse 2 - General Ulcer CM Notes Start: 06/03/23 08:36 Freq: Status: Active Protocol: Activity Type Activity Date Activity User E-sign Co-sign Detail Recorded Client Recorded Date Recorded By Document 06/03/23 09:17 Desktop 06/03/23 09:20 Document 06/10/23 09:42 Laptop 06/10/23 09:44 06/03/23 06/10/23 09:17 09:42 Wound Center Nurse 2 #1- R ELBOW (POST OP) -Time 09:18 09:42 -Correct Patient Yes Yes -Correct Side, Site, Position Yes Yes -Correct Procedure Yes Yes -Procedure Performed Yes Yes -Type of Procedure Debridement Debridement -Clinical Debridement Subcutaneous Subcutaneous -Tissue Removed Subcutaneous Subcutaneous -Post Debridement (cm) - Length 0.2 0.4 -Post Debridement (cm) - Width 0.2 0.3 -Post Debridement (cm) - Depth 0.3 0.2 -Total Square (Post) (cm) 0.04 0.12 -Area of Debridement (cm) - Length 0.2 0.4 -Area of Debridement (cm) - Width 0.2 0.3 -Total Square (Area) (cm) 0.04 0.12 -Tunneling Yes Yes -Tunneling Position (O'clock) 12 12 -Tunneling Distance (cm) 0.7 0.2 -Undermining/Tunneling No No -Circular Undermining No No -Wound/Ulcer Outcome Not Healed Not Healed -Ulcer Cleansing Rinsed/ Rinsed/ Irrigated with Irrigated with Saline Saline -Foul Odor after Cleansing No -Bioengineered Tissue No No -Bleeding Controlled with Pressure Pressure -Treatment Response Procedure Procedure Tolerated Well Tolerated Well -Offloading No No -Debridement - Subq, 1st 20sq cm Yes Yes Pain Scale: 0-10 Numeric Is Patient Pain Free? Yes Yes TAMIKO - Nurse 3 - General Ulcer D/C NN Start: 06/03/23 08:36 Freq: Status: Active Protocol: Activity Type Activity Date Activity User E-sign Co-sign Detail Recorded Client Recorded Date Recorded By Document 06/03/23 09:28 [facility] Desktop 06/03/23 09:29 [facility] Document 06/10/23 09:57 [facility] Desktop 06/10/23 09:58 [facility] 06/03/23 06/10/23 09:28 09:57 Wound Care Center Nurse 3 #1- R ELBOW (POST OP) -Ulcer Cleansing Rinsed/ Rinsed/ Irrigated with Irrigated with Saline Saline -Foul Odor after Cleansing No No -Primary Dressing Applied Nugauze, Promogran Iodoform 1/4in Trena Matter -Other Dressing PER DL LIVE STUDY MANAGER -Primary Dressing Covered/Secured with Dry Gauze, Dry Gauze, Secured with Secured with Tape Tape -Other Covering silicone tape -Nugauze, Iodoform 1/4in 1 -Promogran Trena Matter 1 Right -Compression Wrap Nima Wrap Nima Wrap -Other NIMA TO SECURE nima to secure Treatment Response Procedure Procedure Tolerated Well Tolerated Well Pain Scale: 0-10 Numeric Is Patient Pain Free? Yes Yes WC - Visit Discharge Discharge Condition Stable Stable Ambulatory Status Ambulatory Ambulatory Transportation Private Auto Private Auto Accompanied by Assessment/Plan Assessment/Plan (1) Right lateral epicondylitis: CODE(S): M77.11 - Lateral epicondylitis, right elbow (2) Delayed surgical wound healing: CODE(S): T81.89XA - Other complications of procedures, not elsewhere classified, initial encounter PLAN: Plan Patient was evaluated at the wound healing center. Wound care - Stop the 1/4 Iodoform gauze and start placing Moistened Trena covered with gauze daily. To the skin tear above the wound, place adaptic and cover with gauze daily. Compression - NIMA wrap start distally and wrap up arm. Lifting restriction and mobility as prescribed by Dr. Erickson. Continue antibiotics as previously prescribed. Follow up two weeks, due to me being out of town. Call if develop any concerns.
== END 2023-06-11 23:59 | disposition home or self-care (01) ==
LOC: WC 09:15
PROVIDERS: PCP Internal Medicine; Referring Provider Orthopaedic Surgery Sports Medicine; Visit Provider Nurse Practitioner Family
DX: T81.31XA Disruption of external operation (surgical) wound, not elsewhere classified, initial encounter (principal); E11.9 Type 2 diabetes mellitus without complications; Y83.8 Other surgical procedures as the cause of abnormal reaction of the patient, or of later complication, without mention of misadventure at the time of the procedure; M77.11 Lateral epicondylitis, right elbow; I10 Essential (primary) hypertension; E78.2 Mixed hyperlipidemia; Z79.899 Other long term (current) drug therapy
CPT/HCPCS: 11042; 99214; G0463

== ENCOUNTER 2023-07-08 09:00 | Outpatient (RCR) | payer OTHER, MEDICAID, SELFPAY ==
[2023-06-12 00:55] VITALS: BP 134/87; PULSE 85; RESP 16; TEMP 36.1; BMI 35.6
[2023-06-24 09:59] VITALS: BP 140/92; PULSE 93; TEMP 36.2; BMI 35.6
--- NOTE | 2023-06-24 11:57 | PCM.WC.PN ---
History of Present Illness Date of Service: 06/24/23 Chief Complaint: Right lateral elbow wound after surgery 05/08/23 History of Wound: 48 year old male presents for evaluation of his non healing surgical wound from 05/08/23 of his right lateral elbow. He initially injured this elbow at work on 03/19/22 while lifting a cabinet. He had surgery 08/22/22 for right elbow arthroscopy debridement and repair of common extensor by Dr. Erickson. Patient states that he was doing well with OT, then developed a seroma on lateral side of elbow that would come and go. On 05/08/23 he went back to surgery for right elbow revision repair common extensor tendon, irrigation and debridement, injection platelet rich plasma. Last week the incision and he was referred to the wound healing center for further evaluation and treatment of this wound. He is off work at this time. He has a history of Pre diabetes, last HbA1c 5.9 from 03/14/23. History of cardiac arrhythmia, tachycardia, HTN, hyperlipidemia, Sleep apnea, and back pain. He denies any fever, chills, nausea or vomiting. Progress of Wound: Right lateral elbow incision has two very small wounds. It is almost healed. There are two small areas and the one has a small blister that drains. There is no depth to this area. Objective Data Objective Data Vital Signs: Vital Signs Temp Pulse Resp BP 97.2 F L 93 16 140/92 H 06/24/23 09:59 06/24/23 09:59 06/12/23 00:55 06/24/23 09:59 Weight: 285 lb Body Mass Index (BMI) 35.6 Charges/Coding Addendum Addendum: Selective debridement 89087 Debridement Note Debridement Note Wound debrided: Lateral elbow incision Laterality: Right Type of Debridement: Selective debridement Anesthesia Used: 5% Lidocaine Gel Depth: Down to and including healthy tissue Percentage of wound debrided: 100 Tissue Removed: non viable tissue and slough Severity: Limited To Skin Breakdown Bleeding Controlled with: Pressure and Compression and gauze Patient tolerated procedure: Patient tolerated procedure well Debridement Free Text: unroofed blister with pick ups to help prevent moisture build up and to help make wound care easier Post-Debridement Measurements and Additional Note: Post-Debridement Measurements/Treatment WC - Nurse 1 - General Ulcer Assessment Start: 06/24/23 09:58 Freq: Status: Active Protocol: JES Activity Type Activity Date Activity User E-sign Co-sign Detail Recorded Client Recorded Date Recorded By Document 06/24/23 09:59 [facility] [employer] 06/24/23 10:02 [facility] 06/24/23 09:59 - Today's Visit Information Type of service Follow-up Visit (Physician/ADMINISTRATIVE OFFICE MANAGER ) Arrival Mode Ambulatory Transfer Assistance None Accompanied by Patient Identification Verified (Name & Yes ) Height and Weight Body Mass Index (BMI) 35.6 BMI Classification Obese Vital Signs Temperature (97.8 F-99.1 F) 97.2 F L Temperature Source Temporal Pulse Rate (60-100) 93 Pulse Location Monitor Blood Pressure (90/60-120/80) 140/92 H Blood Pressure Mean (mm Hg) 108 Source Monitor Position Sitting Blood Pressure Location Right Arm History Since Last Visit- (Skip if this is Patient's initial visit) Have you changed medications since your No last visit? Any new allergies or adverse reactions No Had a fall/change in ADL's that may No increase risk of falls Signs or symptoms of abuse and/or No neglect since last visit Have you been in the hospital since your No last visit? Has dressing in place as prescribed Yes Has compression in place as prescribed N/A Has offloadiing in place as prescribed N/A Experienced any changes in pain level or No management Left Footwear Regular Shoe Right Footwear Regular Shoe Pain Scale: 0-10 Numeric Is Patient Pain Free? Yes - Nurse 1 - General Ulcer Measurement Start: 06/24/23 09:58 Freq: Status: Active Protocol: Activity Type Activity Date Activity User E-sign Co-sign Detail Recorded Client Recorded Date Recorded By Document 06/24/23 09:59 [facility] [employer] 06/24/23 10:02 [facility] 06/24/23 09:59 Wound Center Nurse 1 #1- R ELBOW (POST OP) -Combined with other wound No -Current Size (cm) - Length 0.1 -Current Size (cm) - Width 0.1 -Current Size (cm) - Depth 0.1 -Total Square Cm 0.01 -Epithelialization Large 67-100% -Texture (Colleen-wound Skin Appearance) Assessed, Scarring -Moisture (Colleen-wound Skin Appearance) Assessed,Dry/ Scaly -Color (Colleen-wound Skin Appearance) Assessed -Temperature (Colleen-wound Skin No Abnormality Appearance) (Pt Warm) -Tenderness on Palpation (Colleen-wound No Skin Appearance) -Ulcer Cleansing Rinsed/ Irrigated with Saline -Foul Odor after Cleansing No -Anesthetic Used 5% Lidocaine Gel - Nurse 2 - General Ulcer CM Notes Start: 06/24/23 09:58 Freq: Status: Active Protocol: Activity Type Activity Date Activity User E-sign Co-sign Detail Recorded Client Recorded Date Recorded By Document 06/24/23 10:16 Laptop 06/24/23 10:21 06/24/23 10:16 Wound Center Nurse 2 -Time 10:20 -Correct Patient Yes -Correct Side, Site, Position Yes -Correct Procedure Yes -Procedure Performed Yes -Type of Procedure Debridement -Clinical Debridement Epidermis / Dermis -Tissue Removed Epidermis, Dermis -Post Debridement (cm) - Length 0.1 -Post Debridement (cm) - Width 0.1 -Post Debridement (cm) - Depth 0.1 -Total Square (Post) (cm) 0.01 -Area of Debridement (cm) - Length 0.1 -Area of Debridement (cm) - Width 0.1 -Total Square (Area) (cm) 0.01 -Tunneling No -Undermining/Tunneling No -Circular Undermining No -Wound/Ulcer Outcome Not Healed -Ulcer Cleansing Rinsed/ Irrigated with Saline -Foul Odor after Cleansing No -Bioengineered Tissue No -Bleeding Controlled with NA -Treatment Response Procedure Tolerated Well -Offloading No -Debridement - Open, 1st 20sq cm Yes Pain Scale: 0-10 Numeric Is Patient Pain Free? Yes - Nurse 3 - General Ulcer D/C NN Start: 06/24/23 09:58 Freq: Status: Active Protocol: Activity Type Activity Date Activity User E-sign Co-sign Detail Recorded Client Recorded Date Recorded By Document 06/24/23 10:21 Laptop 06/24/23 10:22 06/24/23 10:21 Wound Care Center Nurse 3 #1- R ELBOW (POST OP) -Ulcer Cleansing Rinsed/ Irrigated with Saline -Foul Odor after Cleansing No -Primary Dressing Applied NonAdherent Contact Layer -Other Dressing bandaid Pain Scale: 0-10 Numeric Is Patient Pain Free? Yes - Visit Discharge Discharge Condition Stable Ambulatory Status Ambulatory Transportation Private Auto Accompanied by Medication Reconcilliation completed & Yes provided to patient/care provider Clinical Summary of Care Provided Yes Assessment/Plan Assessment/Plan (1) Right lateral epicondylitis: CODE(S): M77.11 - Lateral epicondylitis, right elbow (2) Delayed surgical wound healing: CODE(S): T81.89XA - Other complications of procedures, not elsewhere classified, initial encounter PLAN: Plan Patient was evaluated at the wound healing center. Wound care - Place adaptic covered by gauze daily. Compression - JAMISON wrap start distally and wrap up arm. Lifting restriction and mobility as prescribed by Dr. Erickson. Continue antibiotics as previously prescribed. Follow up two weeks. Call if develop any concerns.
[2023-07-08 09:01] VITALS: BP 131/89; PULSE 86; RESP 18; TEMP 35.7; BMI 35.6
--- NOTE | 2023-07-08 10:36 | PCM.WC.PN ---
History of Present Illness Date of Service: 07/08/23 Chief Complaint: Right lateral elbow wound after surgery 05/08/23 History of Wound: 48 year old male presents for evaluation of his non healing surgical wound from 05/08/23 of his right lateral elbow. He initially injured this elbow at work on 03/19/22 while lifting a cabinet. He had surgery 08/22/22 for right elbow arthroscopy debridement and repair of common extensor by Dr. Erickson. Patient states that he was doing well with OT, then developed a seroma on lateral side of elbow that would come and go. On 05/08/23 he went back to surgery for right elbow revision repair common extensor tendon, irrigation and debridement, injection platelet rich plasma. Last week the incision and he was referred to the wound healing center for further evaluation and treatment of this wound. He is off work at this time. He has a history of Pre diabetes, last HbA1c 5.9 from 03/14/23. History of cardiac arrhythmia, tachycardia, HTN, hyperlipidemia, Sleep apnea, and back pain. He denies any fever, chills, nausea or vomiting. Progress of Wound: Right lateral elbow incision wound is healed today. Objective Data Objective Data Vital Signs: Vital Signs Temp Pulse Resp BP O2 Del Method 96.2 F L 86 18 131/89 H Room Air 07/08/23 09:01 07/08/23 09:01 07/08/23 09:01 07/08/23 09:01 07/08/23 09:01 Oxygen Delivery Method Room Air Weight: 285 lb Body Mass Index (BMI) 35.6 Charges/Coding Visit Charges Office Visits / Consults: 60445 OV L3 Est Physical Exam Const alert, oriented x3, no apparent distress and well nourished General Appearance: cooperative HEENT normocephalic Eyes General Eye: normal appearance of both eyes Neck full ROM Lymph Lymphatic: no lymphedema noted Resp normal respiratory effort and normal air movement Effort and Inspection: able to speak in complete sentences Cardio regular rate Back/Spine normal ROM Extremity normal capillary refill Extremity Narrative: Right lateral elbow incision is healed except for the center of the incision there is a small separation with undermining, especially at 12 o'clock. There is no erythema. Skin Wound Narrative: Right lateral elbow incision is completely healed today. Neuro oriented x3 and moves all extremities Debridement Note Debridement Note No debridement was completed: No debridement was completed today Post-Debridement Measurements and Additional Note: Post-Debridement Measurements/Treatment TAMIKO - Nurse 1 - General Ulcer Assessment Start: 06/24/23 09:58 Freq: Status: Active Protocol: JES Activity Type Activity Date Activity User E-sign Co-sign Detail Recorded Client Recorded Date Recorded By Document 06/24/23 09:59 [facility] Desktop 06/24/23 10:02 [facility] Document 07/08/23 09:01 Desktop 07/08/23 09:05 06/24/23 07/08/23 09:59 09:01 WC - Today's Visit Information Type of service Follow-up Visit Follow-up Visit (Physician/REGULATORY SCIENTIST (Physician/REGULATORY SCIENTIST ) ) Arrival Mode Ambulatory Ambulatory Transfer Assistance None None Accompanied by Patient Identification Verified (Name & Yes Yes ) Patient Requires Transmission-Based No Precautions Height and Weight Body Mass Index (BMI) 35.6 35.6 BMI Classification Obese Obese Vital Signs Temperature (97.8 F-99.1 F) 97.2 F L 96.2 F L Temperature Source Temporal Temporal Pulse Rate (60-100) 93 86 Pulse Location Monitor Monitor Respiratory Rate (12-18) 18 Respiratory rate source Observation Oxygen Delivery Method Room Air Blood Pressure (90/60-120/80) 140/92 H 131/89 H Blood Pressure Mean (mm Hg) 108 103 Source Monitor Monitor Position Sitting Sitting Blood Pressure Location Right Arm Left Arm History Since Last Visit- (Skip if this is Patient's initial visit) Have you changed medications since your No No last visit? Any new allergies or adverse reactions No No Had a fall/change in ADL's that may No No increase risk of falls Signs or symptoms of abuse and/or No No neglect since last visit Have you been in the hospital since your No No last visit? Has dressing in place as prescribed Yes Has compression in place as prescribed N/A Has offloadiing in place as prescribed N/A Experienced any changes in pain level or No management Left Footwear Regular Shoe Right Footwear Regular Shoe Pain Scale: 0-10 Numeric Is Patient Pain Free? Yes Yes TAMIKO Srivastava Nurse 1 - General Ulcer Measurement Start: 06/24/23 09:58 Freq: Status: Active Protocol: Activity Type Activity Date Activity User E-sign Co-sign Detail Recorded Client Recorded Date Recorded By Document 06/24/23 09:59 [facility] Desktop 06/24/23 10:02 [facility] Document 07/08/23 09:01 Desktop 07/08/23 09:05 06/24/23 07/08/23 09:59 09:01 Wound Center Nurse 1 #1- R ELBOW (POST OP) -Combined with other wound No No -Current Size (cm) - Length 0.1 -Current Size (cm) - Width 0.1 -Current Size (cm) - Depth 0.1 -Total Square Cm 0.01 -Photo Taken No -Epithelialization Large 67-100% Large 67-100% -Tunneling No -Undermining/Tunneling No -Wound Margin Flat & Intact -Texture (Colleen-wound Skin Appearance) Assessed, Scarring -Moisture (Colleen-wound Skin Appearance) Assessed,Dry/ Scaly -Color (Colleen-wound Skin Appearance) Assessed -Temperature (Colleen-wound Skin No Abnormality Appearance) (Pt Warm) -Tenderness on Palpation (Colleen-wound No Skin Appearance) -Ulcer Cleansing Rinsed/ Irrigated with Saline -Foul Odor after Cleansing No -Anesthetic Used 5% Lidocaine Gel WC - Nurse 2 - General Ulcer CM Notes Start: 06/24/23 09:58 Freq: Status: Active Protocol: Activity Type Activity Date Activity User E-sign Co-sign Detail Recorded Client Recorded Date Recorded By Document 06/24/23 10:16 Laptop 06/24/23 10:21 Document 07/08/23 09:12 Laptop 07/08/23 09:13 06/24/23 07/08/23 10:16 09:12 Wound Center Nurse 2 #1- R ELBOW (POST OP) -Time 10:20 -Correct Patient Yes No -Correct Side, Site, Position Yes No -Correct Procedure Yes No -Procedure Performed Yes No -Type of Procedure Debridement -Clinical Debridement Epidermis / Dermis -Tissue Removed Epidermis, Dermis -Post Debridement (cm) - Length 0.1 0 -Post Debridement (cm) - Width 0.1 0 -Post Debridement (cm) - Depth 0.1 0 -Total Square (Post) (cm) 0.01 0 -Area of Debridement (cm) - Length 0.1 0 -Area of Debridement (cm) - Width 0.1 0 -Total Square (Area) (cm) 0.01 0 -Tunneling No -Undermining/Tunneling No -Circular Undermining No -Wound/Ulcer Outcome Not Healed Healed- Epithelialized -Ulcer Cleansing Rinsed/ Irrigated with Saline -Foul Odor after Cleansing No -Bioengineered Tissue No -Bleeding Controlled with NA -Treatment Response Procedure Tolerated Well -Offloading No -Debridement - Open, 1st 20sq cm Yes Pain Scale: 0-10 Numeric Is Patient Pain Free? Yes Yes - Nurse 3 - General Ulcer D/C NN Start: 06/24/23 09:58 Freq: Status: Active Protocol: Activity Type Activity Date Activity User E-sign Co-sign Detail Recorded Client Recorded Date Recorded By Document 06/24/23 10:21 Laptop 06/24/23 10:22 Document 07/08/23 09:14 Laptop 07/08/23 09:14 06/24/23 07/08/23 10:21 09:14 Wound Care Center Nurse 3 #1- R ELBOW (POST OP) -Ulcer Cleansing Rinsed/ Irrigated with Saline -Foul Odor after Cleansing No -Primary Dressing Applied NonAdherent Contact Layer -Other Dressing bandaid Pain Scale: 0-10 Numeric Is Patient Pain Free? Yes Yes - Visit Discharge Discharge Condition Stable Stable Ambulatory Status Ambulatory Ambulatory Transportation Private Auto Private Auto Accompanied by Medication Reconcilliation completed & Yes Yes provided to patient/care provider Clinical Summary of Care Provided Yes Yes Assessment/Plan Assessment/Plan (1) Right lateral epicondylitis: CODE(S): M77.11 - Lateral epicondylitis, right elbow (2) Delayed surgical wound healing: CODE(S): T81.89XA - Other complications of procedures, not elsewhere classified, initial encounter PLAN: Plan Patient was evaluated at the wound healing center. His right lateral elbow wound is healed. today. Encouraged him to massage the scarring 1-2 times a day with lotion to help soften scarring. He is to follow up with Dr. Erickson. Lifting restriction and mobility as prescribed by Dr. Erickson. Follow up as needed.
== END 2023-07-09 14:41 | disposition home or self-care (01) ==
LOC: WC 09:00
PROVIDERS: PCP Internal Medicine; Referring Provider Orthopaedic Surgery Sports Medicine; Visit Provider Nurse Practitioner Family
DX: T81.89XA Other complications of procedures, not elsewhere classified, initial encounter (principal); Y83.8 Other surgical procedures as the cause of abnormal reaction of the patient, or of later complication, without mention of misadventure at the time of the procedure; M77.11 Lateral epicondylitis, right elbow; I10 Essential (primary) hypertension; E78.5 Hyperlipidemia, unspecified; R73.03 Prediabetes; G47.30 Sleep apnea, unspecified; Z79.899 Other long term (current) drug therapy
CPT/HCPCS: 97597; 99213; G0463

== ENCOUNTER → 2023-08-19 | Outpatient (CLI) | payer MEDICAID, SELFPAY | END | disposition home or self-care (01) | LOC: LABSPEC 15:17 | PROVIDERS: PCP Internal Medicine; Referring Provider Otolaryngology; Visit Provider Otolaryngology | DX: J32.8 Other chronic sinusitis (principal) | CPT/HCPCS: 87070; 87205 ==

== ENCOUNTER → 2023-09-25 | Outpatient (CLI) | payer MEDICAID, SELFPAY ==
--- NOTE | 2023-09-25 16:00 | RAD_ITS ---
INDICATION: Cough, Chest Congestion EXAMINATION/TECHNIQUE: X-RAY - XR Chest 2 Views COMPARISON: FINDINGS: LINES/DEVICES: None. LUNGS: No consolidation, edema or effusion. No pneumothorax. MEDIASTINUM AND CARDIOVASCULAR STRUCTURES: Cardiac silhouette not enlarged. Central airways and mediastinal contour are unremarkable. BONES AND SOFT TISSUES: Unremarkable. RAD/Chest PA and Lateral IMPRESSION: No radiographic evidence of acute cardiopulmonary disease. Electronically Signed: Naif Delgado DO at 16:14 [facility] Reading Location ID and State: [facility] / [place] Tel [phone], Service support ,
[2023-09-25 17:00] LABS: Absolute Lymphocyte Count 2.43 X10^3/uL (0.83-4.51); Absolute Neutrophil Count 4.8 X10^3/uL (2.0-7.7); Basophil# 0.08 X10^3/uL; Basophil% 0.9 % (0-1); Eosinophil# 0.12 X10^3/uL; Eosinophils% 1.4 % (0-5); Hematocrit 47.5 % (40-54); Hemoglobin 15.6 g/dL (13.0-16.5); Lymphocyte # 2.43 X10^3/ul (0.83-4.51); Lymphocyte % 28.7 % (19-41); Mean Corp Hgb Conc 32.8 g/dL (32-36); Mean Corpuscular Volume 88.3 fL (80-94); Mean Platelet Vol. 10.8 fl (6.2-12.0); Monocyte# 0.91 X10^3/uL; Monocyte% 10.8 % (0-10); NRBC Flagged by Analyzer 0 % (0-5); Neutrophil # 4.76 X10^3/uL (2.7-7.7); Neutrophil % 56.3 % (47-70); Platelet Count 292 K/mm3 (150-450); RBC Distribution Width SD 45.1 fl (35.1-43.9); Red Blood Count 5.38 M/mm3 (4.6-6.2); White Blood Count 8.5 K/mm3 (4.4-11.0)
[2023-09-25 17:20] LABS: ALB/GLOB Ratio 0.9 RATIO (0.9-2.4); AST(SGOT) 68 U/L (15-37); Alanine Aminotransfer ALT/SGPT 176 U/L (16-61); Albumin, Serum 3.4 g/dL (3.2-5.0); Alkaline Phosphatase 98 U/L (45-117); Anion Gap 4 (5-15); BUN 18 mg/dL (7-18); BUN/Creat Ratio 15.3 RATIO (10-20); Calcium,Total 9.2 mg/dL (8.5-10.1); Chloride 106 mmol/L (98-107); Creatinine, Serum 1.18 mg/dL (0.70-1.30); EST Glomerular Filtration Rate 70 mL/min (>60); Est Glom Filt Rate - Afr Amer 85 mL/min (>60); Globulin 3.7 g/dL (2.2-4.2); Glucose 107 mg/dL (74-106); Potassium 4.2 mmol/L (3.5-5.1); Protein, Total 7.1 g/dL (6.4-8.2); Sodium Level 136 mmol/L (136-145)
[2023-09-25 17:50] LABS: Microalbumin,Random Urine 11.7 mg/L (NO RANGE EST.); Microalbumin:Creatinine Ratio 4.2 mg/g CRE (<30 mg/g CRE)
--- OUTSIDE RECORDS SUMMARY | 2023-09-25 18:56 | XMS RPT_ITS | CCD ---
Author Name Unknown Address [id number] [place] [address] Organization [facility] Care Team Providers Care Advertising Teacher Name Role Phone ISABELA, REBECCA PA Unavailable Unavailable ISABELA, REBECCA PA Unavailable Unavailable ISABELA, REBECCA PA Unavailable Unavailable ISABELA, REBECCA PA Unavailable Unavailable ISABELA, REBECCA PA Unavailable Unavailable ISABELA, REBECCA PA Unavailable Unavailable VOLL, IRVING DO Unavailable Unavailable VOLL, IRVING DO Unavailable Unavailable NO, DOCTOR ON Unavailable Unavailable VOLL, IRVING DO Unavailable Unavailable NO, DOCTOR ON Unavailable Unavailable ISABELA, REBECCA PA Unavailable Unavailable ISABELA, REBECCA PA Unavailable Unavailable ISABELA, REBECCA PA Unavailable Unavailable NO, DOCTOR ON Unavailable Unavailable ISABELA, REBECCA PA Unavailable Unavailable ISABELA, REBECCA PA Unavailable Unavailable ISABELA, REBECCA PA Unavailable Unavailable NO, DOCTOR ON Unavailable Unavailable ISABELA, REBECCA PA Unavailable Unavailable ISABELA, REBECCA PA Unavailable Unavailable ISABELA, REBECCA PA Unavailable Unavailable NO, DOCTOR ON Unavailable Unavailable ROE CORDERO () Unavailable Unav ailable Sanjiv Galaviz MD Primary Care Provider 1(11 08) Sanjiv Galaviz MD Primary Care Provider 1(11 08) SANJIV GALAVIZ Primary Care Unavailable NELIDA BERMUDEZ Referring Unavailable SANJIV GALAVIZ Primary Care Unavailable SANJIV GALAVIZ Primary Care Unavailable SANJIV GALAVIZ MD Primary Care Physician (11 08) REMI MCLEAN MD Attending Unavail able SANJIV GALAVIZ MD Primary Care Unavailab le Allergies Allergy Classification Reported Allergen(s) Allergy Type Date of Onset Reaction(s) Facility (3 sources) colchicine; Translations: [COLCHICINE] Drug Allergy 08-02-2016 A[facility] Repository (3 sources) Colchicine; Translations: [colchicine] Drug Allergy 08-02-2016 GI Upset [facility] Work Phone: (2 sources) Doxycycline; Translations: [doxycycline] Drug Allergy 07-17-2022 Hives [facility] Medications Current Medications Medication Drug Class(es) Dates Sig (Normalized) Sig (Original) acetaminophen 325 mg / HYDROcodone bitartrate 5 mg oral tablet (1 source) Opioid Agonist Start: 04-03-2023 End: 04-06-2023 take 1 tablet by mouth every six hours as needed for pain Hersey 325- 5 mg oral tablet Dose = 1 tab(s), Oral, q6h, PRN for pain, X 3 day(s), # 12 tab(s), 0 Refill(s), Strain of chest wall muscle, 127.3 Start Date: 04/03/23 Stop Date: 04/06/23 Status: Ordered allopurinol 300 mg oral tablet (3 sources) Xanthine Oxidase Inhibitor Start: 04-03-2023 take 1 tablet by mouth once daily allopurinol 300 mg oral tablet TAKE 1 TABLET BY MOUTH ONCE DAILY Start Date: 04/03/23 Status: Ordered Completed/Discontinued Medications Medication Drug Class(es) Dates Sig (Normalized) Sig (Original) aspirin 81 mg delayed release oral tablet (2 sources) Platelet Aggregation Inhibitor, Nonsteroidal Anti-inflammatory Drug Start: 04-19-2017 take 1 tablet by mouth once daily aspirin, enteric coated (ADULT LOW DOSE ASPIRIN) 81 mg EC tablet Indications: Cardiac arrhythmia, unspecified cardiac arrhythmia type Take 1 tablet by mouth once daily. 90 tablet 1 04/19/2017 Active Problems Active Problems Problem Classification Problem Date Documented Da te Episodic/Chronic Cardiac dysrhythmias (2 sources) Cardiac arrhythmia; Translations: [Cardiac arrhythmia, unspecified] 09-20-2016 Chronic Diabetes mellitus without complication (2 sources) Prediabetes; Translations: [Prediabetes] 03-19-2017 Episodic Disorders of lipid metabolism (2 sources) Hyperlipidemia; Translations: [Hyperlipidemia, unspecified] 03-19-2017 Chronic Essential hypertension (2 sources) Hypertensive disorder; Translations: [Essential (primary) hypertension] 09-20-2016 Chronic Other lower respiratory disease (1 source) Cough; Translations: [Acute cough] Episodic Other upper respiratory infections (2 sources) Sore throat symptom; Translations: [Acute pharyngitis, unspecified] Episodic Residual codes; unclassified (2 sources) Obstructive sleep apnea syndrome; Translations: [Obstructive sleep apnea (adult) (pediatric)] Onset: 04-12-2017 04-12-2017 Chronic Sprains and strains (4 sources) Strain of unspecified muscle, fascia and tendon at shoulder and upper arm level, left arm, initial encounter; Translations: [Injury of muscle and tendon at thorax level] Onset: 10-30-2017 Episodic Unclassified (1 source) Acute cough; Translations: [Acute cough] Onset: 06-04-2022 Past or Other Problems Problem Classification Problem Date Documented Date Episodic/Chronic Abdominal hernia (2 sources) Umbilical hernia; Translations: [Umbilical hernia without obstruction or gangrene] Onset: 04-01-2017 04-01-2017 Episodic Malaise and fatigue (1 source) Other fatigue; Translations: [Other fatigue] Onset: 04-04-2017 Episodic Other connective tissue disease (2 sources) Medial epicondylitis of right humerus; Translations: [Medial epicondylitis, right elbow] Onset: 12-13-2016 12-13-2016 Episodic Other connective tissue disease (2 sources) Diastasis recti; Translations: [Separation of muscle (nontraumatic), other site] Onset: 04-01-2017 04-01-2017 Episodic Results Test Name Value Interpretation Reference Range Facil ity Vital Signs Date Time Vital Sign Value Performing Clinician Facility 04-03-2023 15:07-0400 Diastolic Blood Pressure Non-Invasive 88 1 REMI MCLEAN MD [facility] 04-03-2023 15:07-0400 Heart rate 89 /min REMI MCLEAN MD [facility] 04-03-2023 15:07-0400 Respiratory rate 22 /min REMI MCLEAN MD [facility] 04-03-2023 15:07-0400 Systolic Blood Pressure Non-Invasive 128 1 REMI MCLEAN MD [facility] 04-03-2023 13:25-0400 Body height 190.5 cm REMI MCLEAN MD [facility] 04-03-2023 13:25-0400 Body temperature 98.96 [degF] REMI MCLEAN MD [facility] 04-03-2023 13:25-0400 Body weight 127.3 kg REMI MCLEAN MD [facility] 04-03-2023 13:25-0400 Diastolic Blood Pressure Non-Invasive 92 1 REMI MCLEAN MD [facility] 04-03-2023 13:25-0400 Heart rate 94 /min REMI MCLEAN MD [facility] 04-03-2023 13:25-0400 Respiratory rate 24 /min REMI MCLEAN MD [facility] 04-03-2023 13:25-0400 Systolic Blood Pressure Non-Invasive 138 1 REMI MCLEAN MD [facility] 07-17-2022 10:04-0500 Body temperature 97.9 [degF] Anya Fiordaliza BOAT ENGINE MECHANIC.NEONATAL ICU COORDINATOR Work Phone: [facility] 07-17-2022 10:04-0500 Body weight 132 kg Anya Fiordaliza BOAT ENGINE MECHANIC.NEONATAL ICU COORDINATOR Work Phone: [facility] 07-17-2022 10:04-0500 Diastolic blood pressure 86 mm[Hg] Anya Fiordaliza BOAT ENGINE MECHANIC.NEONATAL ICU COORDINATOR Work Phone: [facility] 07-17-2022 10:04-0500 Heart rate 98 /min Anya Fiordaliza BOAT ENGINE MECHANIC.NEONATAL ICU COORDINATOR Work Phone: [facility] 07-17-2022 10:04-0500 Respiratory rate 16 /min Anya Mancera APRN.NEONATAL ICU COORDINATOR Work Phone: [facility] 07-17-2022 10:04-0500 SaO2% (BldA) [Mass fraction] 97 % Anya Mancera APRN.NEONATAL ICU COORDINATOR Work Phone: [facility] 07-17-2022 10:04-0500 Systolic blood pressure 132 mm[Hg] Anya Mancera BOAT ENGINE MECHANIC.NEONATAL ICU COORDINATOR Work Phone: [facility] 06-03-2022 09:02-0400 Body temperature 97.2 [degF] Nelida Bermudez APRN.NEONATAL ICU COORDINATOR Work Phone: [facility] 06-03-2022 09:02-0400 Body weight 133.27 kg Nelida Bermudez APRN.NEONATAL ICU COORDINATOR Work Phone: [facility] 06-03-2022 09:02-0400 Diastolic blood pressure 84 mm[Hg] Nelida Bermudez APRN.NEONATAL ICU COORDINATOR Work Phone: [facility] 06-03-2022 09:02-0400 Heart rate 103 /min Nelida Bermudez APRN.NEONATAL ICU COORDINATOR Work Phone: [facility] 06-03-2022 09:02-0400 Respiratory rate 20 /min Nelida Bermudez APRN.NEONATAL ICU COORDINATOR Work Phone: [facility] 06-03-2022 09:02-0400 SaO2% (BldA) [Mass fraction] 97 % Nelida Bermudez APRN.NEONATAL ICU COORDINATOR Work Phone: [facility] 06-03-2022 09:02-0400 Systolic blood pressure 122 mm[Hg] Nelida Bermudez APRN.NEONATAL ICU COORDINATOR Work Phone: [facility] Encounters Encounter Date Encounter Type Care Provider Facility Start: 04-03-2023 End: 04-03-2023 Emergency department patient visit REMI MCLEAN MD Facility:B Start: 04-03-2023 End: 04-03-2023 Emergency department patient visit [facility] Start: 07-17-2022 End: 07-17-2022 ambulatory SANJIV GALAVIZ Facility:[facility] Start: 07-17-2022 End: 07-17-2022 Patient encounter procedure Anya Mancera APRN.CNP Work Phone: [facility] Procedures Date Procedure Procedure Detail Performing Clinician Start: 07-17-2022 STREP A MOLECULAR (POC) Anya Mancera APRN.CNP Work Phone: Plan of Treatment Date Care Activity Detail Author Start: 07-17-2022 End: 07-31-2022 Influenza virus A and B RNA and SARS-CoV-2 (COVID-19) N gene panel - Respiratory specimen by DANGELO with probe detection COVID WITH FLUA+B, ROUTINE Microbiology Routine URI with cough and congestion Expected: 07/17/2022, Expires: 07/31/2022 [facility] Work Phone: Payers Date Payer Category Payer Unknown [id number] 2019 Medicaid [employer] [id number] 2019-Present [phone] [address] [place] [address] Medicaid [id number] 2019 Medicaid [id number] 1975 Unknown [id number] Worker's Compensation [id number] Social History Date Type Detail Facility Start: 06-03-2022 Tobacco smoking status NHIS Never smoked tobacco [facility] Start: 06-03-2022 Tobacco use and exposure Smokeless tobacco non-user [facility] Start: 06-03-2022 End: 07-17-2022 Alcohol intake Current drinker of alcohol (finding) [facility] Start: 02-06-2014 Alcohol Comment occasionally [facility] Start: 1975 Sex Assigned At Not on file [facility] Start: 05-24-2022 End: 06-03-2022 Exposure to SARS-CoV-2 (event) Not sure [facility] Work Phone: Tobacco smoking status No Smoking Status Entered [facility] Sex Assigned At Male [facility] Functional Status Date Assessment Result Facility 04-03-2023 Functional Status Assistive Device None A [facility] 04-03-2023 Functional Status Awake [facility] Mental Status Date Assessment Result Facility 04-03-2023 Mental Status Orientation Oriented x 4 [facility] 04-03-2023 [facility] Status [facility] Clinical Notes 06-03-2022 to 04-03-2023 Patient InstructionsAnya Mancera APRN.NEONATAL ICU COORDINATOR - 07/17/2022 10:13 AM Janina Bermudez APRN.CNP - 06/03/2022 9:09 AM EDT Note Date & Type Note Facility 04-03-2023 Hospital Discharge instructions Patient Education 04/03/2023 14:45:42 CHEST WALL STRAIN(CUSTOM) Chest Strain You have a chest strain. This happens when the muscles between the ribs stretch and tear. This may occur when you have a severe cough. It may also happen after strenuous lifting or twisting injuries of the upper back. A chest strain usually causes pain when you move or take a deep breath. The strain may take a few days to a few weeks to heal. Home care Follow these guidelines when caring for yourself at home: Rest. Don t do any heavy lifting or strenuous activity. Don t do any activity that causes pain. If you have a severe cough, use a cough syrup with dextromethorphan, unless another cough medicine was prescribed. If you have high blood pressure, check with your health care provider or pharmacist before using an yskn-kzh-oknsuuc cough medicine. You may use acetaminophen or ibuprofen to control pain, unless another medicine was prescribed. If you have chronic liver or kidney disease, talk with your provider before using these medicines. Also talk with your provider if you ve had a stomach ulcer or GI bleeding. Follow-up care Follow up with your health care provider, or as advised. When to seek medical advice Call your health care provider right away if any of these occur: A change in the type of pain. This means if it feels different, gets worse, lasts longer, or begins to spread into your shoulder, arm, neck, jaw, or back. Pain doesn t go away in 1 week Shortness of breath, difficulty breathing, or fast breathing Pain gets worse when you breathe Cough with dark-colored sputum (phlegm) or blood Weakness, dizziness, or fainting Fever of 101 F (38.3 C) or higher, or as directed by your health care provider [id number] [employer]. [address] [place] [address]. All rights reserved. This information is not intended as a substitute for professional medical care. Always follow your healthcare professional's instructions. Follow Up Care 04/03/2023 13:15:13 With:SANJIV GALAVIZ MD Address: [address] [place] [phone] When:2-4 days [facility] 04-03-2023 Note Discharge Instructions Thank you for allowing [facility] to assist you with your healthcare needs. The following is important discharge information regarding your hospital visit. Diagnosis from Today's Visit Rib/trunk pain-swelling Strain of chest wall muscle What to Do Next Instructions from Your Care Team Discharge Return to Work, School, or Sports (Return to Work, School, or Sports) - Ordered -- May return to: work, no heavy lifting x 3 days, minimal twisting and climbing, 04/03/23 14:45:00 EDT Post Acute Orders No qualifying data available. You Need to Schedule the Following Appointments Follow Up with SANJIV GALAVIZ MD When Within 2-4 days Where: [address] [place] [address] [place] [address]- [phone] Allergies colchicine doxycycline Medications Please ask your primary doctor or pharmacist before taking any other medication not listed, including over the counter drugs, herbal medications, vitamins and or supplements as they may interact with your home medications. What How Much When Why Instructions Last Dose New acetaminophen-hydrocodone (Hersey 325- 5 mg oral tablet) 1 tab(s) by mouth Every 6 hours as needed for for pain Strain of chest wall muscle Duration: 3 Days Printed Prescription New cyclobenzaprine (cyclobenzaprine 10 mg oral tablet) 1 tab(s) by mouth Three (3) times a day Duration: 7 Days Printed Prescription Unchanged allopurinol (allopurinol 300 mg oral tablet) TAKE 1 TABLET BY MOUTH ONCE DAILY Unchanged dilTIAZem (DilTIAZem (Eqv-Cardizem CD) 300 mg/ 24 hours oral capsule, extended release) TAKE 1 CAPSULE BY MOUTH ONCE DAILY Unchanged gabapentin (gabapentin 300 mg oral capsule) TAKE 1 CAPSULE BY MOUTH AT BEDTIME Unchanged hydroCHLOROthiazide (hydroCHLOROthiazide 25 mg oral tablet) TAKE 1 TABLET BY MOUTH ONCE DAILY IN THE MORNING Unchanged lisinopril (lisinopril 40 mg oral tablet) TAKE 1 TABLET BY MOUTH ONCE DAILY Unchanged pramipexole (pramipexole 1.5 mg oral tablet) TAKE 1 TABLET BY MOUTH AT BEDTIME Please take this list to your next doctor s visit. Bring all medications you take, including over the counter medications, herbals and other supplements with you to your doctor s visit. Patients and families are reminded to discard old lists and to update any records with all medication providers or retail pharmacies. Education Materials Chest Strain You have a chest strain. This happens when the muscles between the ribs stretch and tear. This may occur when you have a severe cough. It may also happen after strenuous lifting or twisting injuries of the upper back. A chest strain usually causes pain when you move or take a deep breath. The strain may take a few days to a few weeks to heal. Home care Follow these guidelines when caring for yourself at home: Rest. Don t do any heavy lifting or strenuous activity. Don t do any activity that causes pain. If you have a severe cough, use a cough syrup with dextromethorphan, unless another cough medicine was prescribed. If you have high blood pressure, check with your health care provider or pharmacist before using an ydwm-lzt-woerdye cough medicine. You may use acetaminophen or ibuprofen to control pain, unless another medicine was prescribed. If you have chronic liver or kidney disease, talk with your provider before using these medicines. Also talk with your provider if you ve had a stomach ulcer or GI bleeding. Follow-up care Follow up with your health care provider, or as advised. When to seek medical advice Call your health care provider right away if any of these occur: A change in the type of pain. This means if it feels different, gets worse, lasts longer, or begins to spread into your shoulder, arm, neck, jaw, or back. Pain doesn t go away in 1 week Shortness of breath, difficulty breathing, or fast breathing Pain gets worse when you breathe Cough with dark-colored sputum (phlegm) or blood Weakness, dizziness, or fainting Fever of 101 F (38.3 C) or higher, or as directed by your health care provider [phone] [employer]. [address] [place] [address]. All rights reserved. This information is not intended as a substitute for professional medical care. Always follow your healthcare professional's instructions. Additional Information VACCINATE! IT SAVES LIVES! Members of the community who have not yet received the COVID-19 vaccine and would like to receive it can visit one of [facility] vaccine clinics. There are many vaccine clinic locations within the [facility]. For locations and available times, please visit [email or web address] [email or web address] It is important to note that some COVID mobile vaccine clinics are held outdoors and may be canceled in rainy or stormy conditions. To learn more about pediatric vaccinations (ages 5-11), we invite you to visit the [facility] webpage. https://www.[email or web address].org/pag es/9927-Fmdao-Bbufzojzcdi-Frequent rp-Aoxlp-Ekpmqqssh.html To learn more about the COVID-19 vaccine, we invite you to visit the CDC website for a list of frequently asked questions. https://www.cdc.gov/coronavirus/-ncov/vaccines/faq.html [facility] Patient Portal Access Instructions: Stay connected with your healthcare team and access your personal medical information anytime with the [facility] Patient Portal. If you would like a full copy of your medical records please contact the [facility] Medical Records Department Saturday through Saturday between 8a.m. and 4:30p.m. Please follow the directions below to access the portal: 1.Access the email account you provided upon registration to the [facility].2.Look for an invitation email from [facility].3.Open the email and access the invitation link: Accept Invitation to [email or web address].Fill in the required navas to create your account. Sign into [email or web address] with your username and password that you created in the above steps to stay up to date. You can then view a summary of results, a summary of your visits, and the ability to download your summaries to your computer or send the information securely to a physician. Remember that your healthcare information is confidential, so carefully consider who you will allow to register on the [facility] Patient Portal for access to your information. You can also access the [facility] Patient Portal on the [employer]. Simply click on Health Records under [employer] and then click on the [employer] logo. HOW TO SAFELY DISPOSE OF PRESCRIPTION MEDICATIONS Please use one of the following methods to safely dispose of your unused medications. 1.Use a drug disposal kit: the drug disposal pouch allows you to safely discard your old and unused drugs. Ask your nurse to give you one when you are discharged.2.Visit a local take-back location: Many local pharmacies and police departments have programs that collect old and unwanted prescription drugs. Call your local pharmacy or go to http://Pearl.com/7A0Oq4y to find one close to you.3.Make use of household items: Use cat litter or old coffee grounds to dispose medications if other options are not available. Mix your drugs with these household products, seal them in an airtight container and throw it into the garbage. Call [facility]: [phone] to be sure your drugs can be disposed of in this way. Some medicines may require a different approach.4.Never flush your medications down the toilet. IF YOU HAVE BEEN PRESCRIBED AN OPIOIDS FOR PAIN If you have been prescribed an opioid (such as hydrocodone, oxycodone or morphine), it is critical to understand the possible side effects and risks of opioid pain medications. Even when taken as directed, opioids can have several side effects including: Tolerance, meaning you might need to take more of a medication for the same pain relief. Nausea, vomiting and/or constipation. Sleepiness, dizziness, dry mouth, confusion, depression or itching. Physical dependence, meaning you have withdrawal symptoms when a medication is stopped ? this can develop within a few days. KNOW YOUR RESPONSIBILITIES It is important to know exactly how much and how often to take the opioid pain medications you are prescribed. Never take opioids in higher amounts or more often than prescribed. Do not combine opioids with alcohol or other drugs that cause drowsiness, such as benzodiazepines, also known as benzos, including diazepam and alprazolam, muscle relaxants or sleep aids. Never sell or share prescription opioids. This is illegal. Store opioids in a secure place and out of reach of others (including children, family, friends and visitors). The last page(s) of this document has been signed and retained as a CHART COPY Signatures Patient Education Materials CHEST WALL STRAIN(CUSTOM) Medication Leaflets My discharge plan and instructions have been reviewed and explained to me and I,ELIZABETH PASTOR Carleen understand my current condition and have read and understand these discharge instructions. I have received a written copy of the plan/instructions. If I have questions, I am aware that I should contact my doctor. 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 Lungs and pleura: No focal consolidation or pulmonary edema. No pleural effusion or visible pneumothorax. Bones: No osseous fracture or abnormality observed. Other: None. IMPRESSION: No acute radiographic findings. No displaced rib fractures. I have personally reviewed the images of this examination and agree with the resident's findings and interpretation. Interpreted by: Mario Perez MD Preliminary Report By: Jai Najera Electronically signed By Mario Perez MD Dictated Date: 04/03/2023 2:17:05 PM Prelim Date: 04/03/2023 2:25:02 PM Sign Date: 04/03/2023 2:25:02 PM Ordering Provider: REMI MCLEAN [facility] 07-17-2022 Influenza virus A and B RNA and SARS-CoV-2 (COVID-19) N gene panel DANGELO+probe (Resp) COVID 19 RESULT: SARS-CoV-2 (Agent of COVID-19) Not Detected by RT-PCR or equivalent method. logan GPXL-LyM-2_[employer] (MILLER)_EUA This test was developed and its performance characteristics determined by [facility]'s [facility] [place]. This test has been authorized by FDA under an Emergency Use Authorization (EUA). This test has been validated in accordance with the FDA's Guidance Document Policy for Diagnostics Testing in Laboratories Certified to Perform High Complexity Testing under CLIA prior to Emergency use Authorization for Coronavirus Disease 2019 during the Public Health Emergency issued on October 10, 2019. Test performed by [facility], [facility] Medicine [place], [address] [place] [address]. INFLUENZA A PCR: Negative for Influenza A by RT-PCR INFLUENZA B PCR: Negative for Influenza B by RT-PCR [facility] Diagnosis Sore throat- Primary Acute pharyngitis URI with cough and congestion documented in this encounter [facility] Summary Purpose Family History No Family History Records FoundNo Family History Records FoundNo Family History Records Found No data available for this section No Family History Records Found Advance Directives No Advanced Directives Records FoundNo Advanced Directives Records FoundNo Advanced Directives Records FoundNo Advanced Directives Records Found Health Concerns Infection Onset Date Last Indicated Resolved Time COVID-19 Rule-Out 07/17/2022 07/17/2022 Additional Source Comments (unrecognized sect ion and content) No Status Records FoundNo Status Records FoundNo Status Records FoundNo Status Records Found INFORMATION SOURCE (unrecogn ized section and content) DATE CREATED AUTHOR AUTHOR'S ORGANIZ ATION 02/05/2018 [facility] DATE CREATED AUTHOR AUTHOR'S ORGANIZ ATION 07/18/2022 [facility] DATE CREATED AUTHOR AUTHOR'S ORGANIZ ATION 04/11/2023 [facility] Source Comments (unrecognize d section and content) In the event this informatio n is protected by the Federal Confidentiality of Alcohol and Drug Abuse Patient Records regulations: The Federal rules restrict any use of the information to criminally investigate or prosecute any alcohol or drug abuse patient.[facility] the event this information is protected by the Federal Confidentiality of Alcohol and Drug Abuse Patient Records regulations: The Federal rules restrict any use of the information to criminally investigate or prosecute any alcohol or drug abuse patient.[facility] Reason for Visit (unrecogniz ed section and content) Reason Comments Cough Cough, ST and conges tion x 1 day Care Teams (unrecognized sec tion and content) Advertising Teacher Relationship Specialty Start Date End Date Sanjiv Galaviz MD [address] [facility] [place] [address] PCP - General Internal Medicine 06/03/22 FOR RECORDS PERTAINING TO PATIENTS WHO ARE OR HAVE BEEN ENROLLED IN A CHEMICAL DEPENDENCY/SUBSTANCEABUSE PROGRAM, SOME INFORMATION MAY BE OMITTED. This clinical summary was aggregated from multiple sources. Caution should be exercised in using it in the provision of clinical care. This summary normalizes information from multiple sources, and as a consequence, information in this document may materially change the coding, format and clinical context of patient data. In addition, data may be omitted in some cases. CLINICAL DECISIONS SHOULD BE BASED ON THE PRIMARY CLINICAL RECORDS. [employer] [facility]. provides no warranty or guarantee of the accuracy or completeness of information in this document.
== END | disposition home or self-care (01) ==
PROVIDERS: PCP Internal Medicine; Referring Provider Internal Medicine; Visit Provider Internal Medicine
DX: R05.9 Cough, unspecified (principal); E11.9 Type 2 diabetes mellitus without complications; R09.89 Other specified symptoms and signs involving the circulatory and respiratory systems; I10 Essential (primary) hypertension
CPT/HCPCS: 36415; 71046; 80053; 82043; 82570; 85025

== ENCOUNTER 2024-01-23 08:30 | Outpatient (RCR) | payer OTHER, SELFPAY ==
--- NOTE | 2023-07-11 16:08 | HP.OTEVAL ---
Patient's Visit Information Visit Information Visit Information: PASTOR JOHNSON is a 48 year old M, referred to Occupational Therapy by Dr. Seymour Erickson MD, with a diagnosis of Right partial tear of common extensor tendon. Date of Evaluation: 07/09/23 Occupational Therapist: STEVE Bergman/Katie, CHT Subjective Subjective: This 48 year old male was seen for OT eval with dx of partial tear of common extensor tendon of right elbow. 8 weeks and 6 days s/p from lateral epi revision. with complication of infection prior to stitch removal wound center released yesterday 07/08/23. pt states feels he does have less pain this time around- pain appeared more controlled following this sx. pain medication only for about 3 weeks and use of Tylenol and ibuprohin pt states he feels the weakness in the shoulder- pt is on restrictions from lifting at this time. pt states he feels his range of motion did return fairly quickly and would like to work on getting his strength back. Pain right elbow: Current Pain Intensity: 3 Pain Intensity Range: 0 and 3 ROM Elbow: right 0/140 left -5/145 Forearm: right/left supination/pronation WNL Wrist: right 45/55 left 75/50 Strength Logging Crew Supervisor: right 35# left 120# Lateral Pinch: right 12# left 24# Tripod Pinch: right 14# left 24# Sensation Thumb: right 2.83 left 2.83 interpretation Normal sensation Index: right 2.83 left 2.83 interpretation Normal sensation Middle: right 2.83 left 2.83 interpretation Normal sensation Ring: right 2.83 left 2.83 interpretation Normal sensation Little: right 2.83 left 2.83 interpretation Normal sensation Sensation Comments: pt states initial 4 weeks pt states he did have numbness in right fingers Quick DASH-Disab of Arm,Shoulder& Hand Quick DASH Score: 85.0000 Goals Goal:100% adherence to protocol: Yes Goal:Daily scar massage when approriate: Yes Goal:ROM equal to unaffected hand: Yes Goal:Logging Crew Supervisor/Pinch strength at least 75% of unaffected hand: Yes Goal:No pain with affected hand use: Yes Goal:Full use of affected hand in daily activities including work: Yes Rehabilitation General Assessment: pt arrives 8 weeks and 6 days s.p from right lateral epi common extensor tendon repair. pt demo with good ROM but limited with use of right UE due to weakness. Pt would benefit from skilled OT services 2x week for 12 weeks. Today therapist ed. pt on end range of motion of right elbow and forearm ROM. Will progress pts light strength as tolerate ( 1-3# only) ed. pt on shoulder isometrics. Pt demo understanding of and agree to POC. Pt did see on 06/24/23 and indicated return to therapy and initiate light strengthening 2 weeks after this date. Rehabilitation Potential: Good Anticipated Interventions Anticipated Interventions: A/AAROM/PROM, Strengthening, Scar Care, Triggerpoint Release, Wound Care, Modalities, Orthoses, Joint Protection/Energy Conservation, Ergonomic Education, ADL Training, Education re assistive Equipment, Education re Diagnosis and Home Program Visit Plan Frequency: 2-3x /Week Duration: 3 Months General Plan: will initiate shoulder isometrics- forearm/wrist strengthening (light resistance) TEXT: Thank you for the opportunity to evaluate your patient. For Medicare and Medicare HMO plans, please review the plan of care and approve it. It will need to be FAXED BACK to us at [phone] for Medicare purposes. Please let me know if there are questions or concerns regarding this plan of care. Physician Signature: Date:
--- NOTE | 2023-10-31 10:10 | HP.OTREVAL ---
Re-Evaluation Intro: Dr. Seymour Erickson MD, It has been my pleasure to treat PASTOR JOHNSON over the last 18 visits for Right partial tear of common extensor tendon. Please see the progress note below for an update on the occupational therapy plan of care! Subjective Subjective: pt arrives for his 18th visit. states he is doing ok still has discomfort from time to time- will ice it when he notices swelling Objective Objective/Function: pt demo with right creative engagement director strength at 95 # with elbow straight/and bent #105 pt does have soreness at times but will Ice prn or take over the counter Tylenol or Ibuprofen BTE static compare Left creative engagement director trial 1 (131) trial 2 (153) trial 3 (153) right creative engagement director trial 1 (179) trial 2 (163) trial 3 (168) average right 145# average left 170# difference Biceps static compare left avg. 48.8# right 50.5# wrist ext static compare left average 34.1# right average 23.8# 30% difference in strength pt has made great gains with his UB strength. with static compare of wrist extensors noted 30% difference between affected and unaffected UE. therapist ed. pt that this was common and may have a weakness for about a year. therapist did give resistive band ec. to cont. to strength as he greer but also ed/ not over do with rep. to avoid irritation. pt has gym eq. ex. log to cont. with his strengthening with health and wellness/ HEP Plan Plan Plan: pt returning to and will meet with to discuses vocational rehab. Goals Goals Patient Goals: Regain Mobility, Regain Strength, Return to Work, Use Hand/Wrist/Arm Normally Again and Be More Independent in ADLS Goal:100% adherence to protocol: Yes Goal:Daily scar massage when approriate: Yes Goal:ROM equal to unaffected hand: Yes Goal:Solution Spec/Pinch strength at least 75% of unaffected hand: Yes Goal:No pain with affected hand use: Yes Goal:Full use of affected hand in daily activities including work: Yes Anticipated Interventions Anticipated Interventions Anticipated Interventions: A/AAROM/PROM, Strengthening, Scar Care, Triggerpoint Release, Wound Care, Modalities, Orthoses, Joint Protection/Energy Conservation, Ergonomic Education, ADL Training, Education re assistive Equipment, Education re Diagnosis and Home Program Re-Evaluation Ending Re-evaluation ending: Please do not hesitate to contact me at [phone] by phone or if you have questions or concerns regarding this new plan of care! Sincerely, Darlene Henderson OTR/L, CHT
--- NOTE | 2024-01-23 10:48 | HP.OTDCSUM_ITS ---
Discharge Summary D/C Summary: It has been my pleasure to treat PASTOR JOHNSON under orders from Dr. Seymour Erickson MD, for the diagnosis of Right partial tear of common extensor tendon for a total of 31 visit(s). Please see the following information for a summary of their discharge status. Overall Improvement % Improvement: 90 Objective Objective/Function: pt has consistently attended Voc. rehab/conditioning 3-5x w [facility] for last 8 weeks. Pt was 1/ for 60 min and unsupervised for 60min. pt demo increase in his functionals strength grossly throughout indicated by increase on wts on gym eq. and work simulation. 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 Pt gained confidence in his ability with this task as well. BTE static compare Left scientific database curator trial 1 (135) trial 2 (140) trial 3 (141) right scientific database curator trial 1 (161) trial 2 (153) trial 3 (159) average right 158# a increase from 145# average left 139# difference 13.9% more scientific database curator strength on R vs L Biceps static comp left avg. 140# right 155# Difference of right being 10.9% more wrist ext static compare left average 33.1# right average 28.4# 20% difference in strength between left vs right pt demo good functional strength to return to work without restrictions. pt will continue with endurance and strengthening after d/c. Goals Patient Goals: Regain Mobility, Regain Strength, Return to Work, Use Hand/Wrist/Arm Normally Again and Be More Independent in ADLS Goal:100% adherence to protocol: Yes Goal Progress: Goal Met Goal:Daily scar massage when approriate: Yes Goal Progress: Goal Met Goal:ROM equal to unaffected hand: Yes Goal Progress: Goal Met Goal:Resource Development Director/Pinch strength at least 75% of unaffected hand: Yes Goal Progress: Goal Met Goal:No pain with affected hand use: Yes Goal:Full use of affected hand in daily activities including work: Yes Goal Progress: Goal Met Other Goal: pt will demo greer. of work simulated task to increase pts endurance/strength for RTW by d/c Goal Progress: Goal Met Plan Plan: D/C D/C Information Discharge Comments: pt successfully completed 8 weeks of Voc. rehab: pt arrived for 3-5x week for 60min 1/ and 60 min unsupervised. pt initial injury was a dx of right lateral epicondylitis. Pt underwent sx x2. Pt has regained full ROM of his right elbow and has not reported pain in his elbow throughout the weeks of work conditioning. pt has gained strength and endurance throughout the 8 weeks. Therapist rec'd. return to work without restrictions. d/c sentence: If there are questions or concerns regarding this patient's occupational therapy, please fell free to call me at [phone]. Thank you for the referral of this patient. Sincerely, Darlene Henderson, OTR/L, CHT
== END 2024-01-23 19:00 | disposition home or self-care (01) ==
LOC: OT 08:30
PROVIDERS: PCP Internal Medicine; Visit Provider Orthopaedic Surgery Sports Medicine
DX: S56.511D Strain of other extensor muscle, fascia and tendon at forearm level, right arm, subsequent encounter (principal)
CPT/HCPCS: 97110; 97140; 97166; 97545; 97546

== ENCOUNTER → 2024-02-12 | Outpatient (CLI) | payer MEDICAID, SELFPAY ==
[2024-02-12 10:58] LABS: AST(SGOT) 71 U/L (15-37); Alanine Aminotransfer ALT/SGPT 155 U/L (16-61); Albumin, Serum 3.7 g/dL (3.2-5.0); Alkaline Phosphatase 91 U/L (45-117); Bilirubin, Direct 0.17 mg/dL (0.00-0.30); Cholesterol 180 mg/dL (200); Globulin 3.7 g/dL (2.2-4.2); High Density Lipoprotein 35 mg/dL; Protein, Total 7.4 g/dL (6.4-8.2); Triglycerides 230 mg/dL; Very Low Density Lipoprotein 46 mg/dL (5-40)
== END | disposition home or self-care (01) ==
LOC: LAB 09:51
PROVIDERS: PCP Internal Medicine; Referring Provider Nurse Practitioner Gerontology; Visit Provider Nurse Practitioner Gerontology
DX: E78.2 Mixed hyperlipidemia (principal)
CPT/HCPCS: 36415; 80061; 80076

== ENCOUNTER → 2024-03-27 | Outpatient (CLI) | payer MEDICAID, SELFPAY ==
[2024-03-27 15:41] LABS: Anion Gap 7 (5-15); BUN 18 mg/dL (7-18); BUN/Creat Ratio 16.4 RATIO (10-20); Calcium,Total 9.5 mg/dL (8.5-10.1); Chloride 108 mmol/L (98-107); EST Glomerular Filtration Rate 76 mL/min (>60); Est Glom Filt Rate - Afr Amer 92 mL/min (>60); Glucose 112 mg/dL (74-106); Potassium 3.7 mmol/L (3.5-5.1); Sodium Level 139 mmol/L (136-145)
[2024-03-27 15:50] LABS: Hemoglobin A1c 6.3 % (3.8-5.6)
== END | disposition home or self-care (01) ==
PROVIDERS: PCP Internal Medicine; Referring Provider Internal Medicine; Visit Provider Internal Medicine
DX: E11.9 Type 2 diabetes mellitus without complications (principal)
CPT/HCPCS: 36415; 80048; 83036

== ENCOUNTER → 2024-03-30 | Outpatient (CLI) | payer MEDICAID, SELFPAY ==
[2024-03-30 12:32] LABS: Absolute Lymphocyte Count 1.98 X10^3/uL (0.83-4.51); Absolute Neutrophil Count 4.1 X10^3/uL (2.0-7.7); Basophil# 0.07 X10^3/uL; Eosinophils% 2.9 % (0-5); Hematocrit 44.9 % (40-54); Hemoglobin 14.9 g/dL (13.0-16.5); Lymphocyte # 1.98 X10^3/ul (0.83-4.51); Lymphocyte % 28.2 % (19-41); Mean Corp Hgb Conc 33.2 g/dL (32-36); Mean Corpuscular Hgb 29.7 pg (27.0-32.0); Mean Corpuscular Volume 89.6 fL (80-94); Mean Platelet Vol. 11.8 fl (6.2-12.0); Monocyte# 0.67 X10^3/uL; Monocyte% 9.6 % (0-10); NRBC Flagged by Analyzer 0 % (0-5); Neutrophil # 4.06 X10^3/uL (2.7-7.7); Neutrophil % 57.9 % (47-70); Platelet Count 258 K/mm3 (150-450); RBC Distribution Width CV 13.8 % (11.6-14.6); RBC Distribution Width SD 45.1 fl (35.1-43.9); Red Blood Count 5.01 M/mm3 (4.6-6.2)
[2024-03-30 12:59] LABS: Ferritin 112 ng/mL (26-388); Iron 74 ug/dL (65-175); Iron Binding Capacity,Total 371 ug/dL (250-450)
== END | disposition home or self-care (01) ==
LOC: BIMLAB 09:21
PROVIDERS: PCP Internal Medicine; Referring Provider Internal Medicine; Visit Provider Internal Medicine
DX: Z13.0 Encounter for screening for diseases of the blood and blood-forming organs and certain disorders involving the immune mechanism (principal); E11.9 Type 2 diabetes mellitus without complications
CPT/HCPCS: 36415; 82728; 83540; 83550; 85025

== ENCOUNTER → 2024-10-05 | Outpatient (CLI) | payer MEDICAID, SELFPAY ==
[2024-10-05 12:52] LABS: Absolute Lymphocyte Count 2.07 X10^3/uL (0.83-4.51); Absolute Neutrophil Count 3.3 X10^3/uL (2.0-7.7); Basophil# 0.09 X10^3/uL; Basophil% 1.4 % (0-1); Eosinophil# 0.17 X10^3/uL; Eosinophils% 2.7 % (0-5); Hematocrit 50.8 % (40-54); Hemoglobin 16.3 g/dL (13.0-16.5); Lymphocyte # 2.07 X10^3/ul (0.83-4.51); Lymphocyte % 32.6 % (19-41); Mean Corp Hgb Conc 32.1 g/dL (32-36); Mean Corpuscular Hgb 28.7 pg (27.0-32.0); Mean Corpuscular Volume 89.4 fL (80-94); Mean Platelet Vol. 11.4 fl (6.2-12.0); Monocyte# 0.66 X10^3/uL; Monocyte% 10.4 % (0-10); NRBC Flagged by Analyzer 0 % (0-5); Neutrophil # 3.32 X10^3/uL (2.7-7.7); Neutrophil % 52.4 % (47-70); Platelet Count 259 K/mm3 (150-450); RBC Distribution Width CV 13.8 % (11.6-14.6); RBC Distribution Width SD 45.2 fl (35.1-43.9); Red Blood Count 5.68 M/mm3 (4.6-6.2); White Blood Count 6.3 K/mm3 (4.4-11.0)
[2024-10-05 20:14] LABS: AST(SGOT) 62 U/L (15-37); Alanine Aminotransfer ALT/SGPT 150 U/L (16-61); Albumin, Serum 3.9 g/dL (3.2-5.0); Alkaline Phosphatase 110 U/L (45-117); Anion Gap 6 (5-15); BUN 16 mg/dL (7-18); BUN/Creat Ratio 14.7 RATIO (10-20); Calcium,Total 9.4 mg/dL (8.5-10.1); Chloride 104 mmol/L (98-107); Cholesterol 189 mg/dL (200); Creatinine, Serum 1.09 mg/dL (0.70-1.30); EST Glomerular Filtration Rate 76 mL/min (>60); Est Glom Filt Rate - Afr Amer 92 mL/min (>60); Globulin 3.8 g/dL (2.2-4.2); Glucose 130 mg/dL (74-106); High Density Lipoprotein 43 mg/dL; Potassium 4.3 mmol/L (3.5-5.1); Protein, Total 7.7 g/dL (6.4-8.2); Sodium Level 137 mmol/L (136-145); Triglycerides 229 mg/dL; Very Low Density Lipoprotein 46 mg/dL (5-40)
== END | disposition home or self-care (01) ==
LOC: BIMLAB 09:20
PROVIDERS: PCP Internal Medicine; Referring Provider Internal Medicine; Visit Provider Internal Medicine
DX: E11.9 Type 2 diabetes mellitus without complications (principal); E78.2 Mixed hyperlipidemia; I10 Essential (primary) hypertension
CPT/HCPCS: 36415; 80053; 80061; 85025

== ENCOUNTER → 2025-01-08 | Outpatient (CLI) | payer BC, MEDICAID, SELFPAY ==
[2025-01-08 17:13] LABS: ALB/GLOB Ratio 1.4 RATIO (0.9-2.4); AST(SGOT) 58 U/L (<=37); Alanine Aminotransfer ALT/SGPT 108 U/L (<=46); Albumin, Serum 4.6 g/dL (3.5-5.0); Alkaline Phosphatase 86 U/L (40-129); Anion Gap 13 (5-15); BUN 28 mg/dL (4-19); BUN/Creat Ratio 19.2 RATIO (10-20); Calcium,Total 9.9 mg/dL (7.6-11.0); Carbon Dioxide 24.9 mmol/L (21.0-32.0); Chloride 99 mmol/L (98-108); Creatinine, Serum 1.44 mg/dL (0.70-1.20); EST Glomerular Filtration Rate 60 (>60); Globulin 3.2 g/dL (2.2-4.2); Glucose 115 mg/dL (70-99); Magnesium 1.8 mg/dL (1.5-2.2); Potassium 4.2 mmol/L (3.3-5.1); Protein, Total 7.8 g/dL (5.9-8.4); Sodium Level 136 mmol/L (133-145); Total Bilirubin 0.46 mg/dL (0.00-1.30)
== END | disposition home or self-care (01) ==
LOC: BIMLAB 14:04
PROVIDERS: PCP Internal Medicine; Referring Provider Internal Medicine; Visit Provider Internal Medicine
DX: I10 Essential (primary) hypertension (principal)
CPT/HCPCS: 36415; 80053; 83735

== ENCOUNTER → 2025-01-27 | Outpatient (CLI) | payer BC, MEDICAID, SELFPAY ==
--- NOTE | 2025-01-27 07:30 | US_ITS ---
PROCEDURE: ABD LIMITED W/ ELASTOGRAPHY REASON FOR EXAM: ELEVATED LIVER ENZYMES COMPARISON: None. TECHNIQUE: Right upper quadrant abdominal ultrasound. [facility] ElastQ Imaging shear wave elastography for non-invasive assessment of liver tissue stiffness. [facility]anna EPIQ Elite. FINDINGS: LIVER: Size: Enlarged (hepatomegaly) Length: 19.4 cm Echotexture: Diffusely echogenic suggesting fatty infiltration Contour: Normal Lesions: None identified Elastography: EQI Med: 5.83 kPa EQI Med Bird: 1.39 m/s IQR/Med: 16.8 %* GALLBLADDER: Normal COMMON BILE DUCT: Normal measuring 4 mm. . PANCREAS: Visualized portions are unremarkable. The distal body and tail are obscured by bowel gas. Visualized portions of the right kidney are unremarkable. No right upper quadrant ascites. US/ABD Limited w/ Elastography IMPRESSION: Mild hepatic fibrosis. Hepatomegaly and fatty infiltration of the liver. Reference Values: SRU <1.37 m/s (5.7kPa): No to mild fibrosis 1.37 m/s - 2.2 m/s: Moderate to severe fibrosis >2.2 m/s (15kPa): Significant fibrosis / cirrhosis METAVIR Score F2 or higher: 1.34 m/s (5.7kPa) F3 or higher: 1.55 m/s (7.3kPa) F4: 1.80 m/s (10kPa) * If the IQR/Med is >30%, the variance in the measurements is a large and the a ccuracy of the measurement may be in question. Reading Location: [place] [address]
[2025-01-27 09:52] LABS: Anion Gap 11 (5-15); BUN 20 mg/dL (4-19); BUN/Creat Ratio 18.6 RATIO (10-20); Calcium,Total 9.4 mg/dL (7.6-11.0); Carbon Dioxide 26.5 mmol/L (21.0-32.0); Chloride 101 mmol/L (98-108); Creatinine, Serum 1.05 mg/dL (0.70-1.20); EST Glomerular Filtration Rate 87 (>60); Glucose 112 mg/dL (70-99); Potassium 4.4 mmol/L (3.3-5.1); Sodium Level 138 mmol/L (133-145)
== END | disposition home or self-care (01) ==
LOC: US 07:24
PROVIDERS: Internal Medicine; PCP Internal Medicine; Referring Provider Internal Medicine; Visit Provider Internal Medicine
DX: R74.8 Abnormal levels of other serum enzymes (principal); K76.0 Fatty (change of) liver, not elsewhere classified
CPT/HCPCS: 36415; 76705; 76981; 80048

== ENCOUNTER → 2025-02-03 | Outpatient (CLI) | payer BC, MEDICAID, SELFPAY ==
--- OUTSIDE RECORDS SUMMARY | 2025-02-03 07:20 | XMS RPT_ITS | CCD ---
Author Organization [facility] Care Team Providers Care Shredder Tender Name Role Phone ISABELA, JONATHAN PA Unavailable Unavailable ISABELA, JONATHAN PA Unavailable Unavailable ISABELA, JONATHAN PA Unavailable Unavailable ISABELA, JONATHAN PA Unavailable Unavailable ISABELA, JONATHAN PA Unavailable Unavailable ISABELA, JONATHAN PA Unavailable Unavailable VOLL, IRVING DO Unavailable Unavailable VOLL, IRVING DO Unavailable Unavailable NO, DOCTOR ON Unavailable Unavailable VOLL, IRVING DO Unavailable Unavailable NO, DOCTOR ON Unavailable Unavailable ISABELA, JONATHAN PA Unavailable Unavailable ISABELA, JONATHAN PA Unavailable Unavailable ISABELA, JONATHAN PA Unavailable Unavailable NO, DOCTOR ON Unavailable Unavailable ISABELA, JONATHAN PA Unavailable Unavailable ISABELA, JONATHAN PA Unavailable Unavailable ISABELA, JONATHAN PA Unavailable Unavailable NO, DOCTOR ON Unavailable Unavailable ISABELA, JONATHAN PA Unavailable Unavailable ISABELA, JONATHAN PA Unavailable Unavailable ISABELA, JONATHAN PA Unavailable Unavailable NO, DOCTOR ON Unavailable Unavailable ROE CORDERO) Unavailable Unav ailable Dr. Kayleigh Singleton Primary Care Provider [phone] Dr. Kayleigh Singleton Attending Provider [phone] Dr. Kayleigh Singleton Referring Provider [phone] Miriam Peters Attending Provider Unavailable Dr. Herman Plunkett Attending Provider Dr. Herman Plunkett Other Provider CRISTINA Hernandez Attending Provider CRISTINA Francis Attending Provider Dr. Kayleigh Singleton Primary Care Provider [phone] Dr. Kayleigh Singleton Referring Provider [phone] CRISTINA Gordon Attending Provider MD Seymour Erickson Attending Provider [phone] Kayleigh Singleton MD Primary Care Provider [phone] Dr. Kayleigh Singleton Primary Care Provider [phone] Dr. Kayleigh Singleton Referring Provider [phone] Dr. Herman Plunkett Attending Provider Dr. Herman Plunkett Other Provider Isabela PA, PA Jonathan Attending Provider Elpidio PA, PA Juaquin Olivera Attending Provider Oliverio PA, PA Irving Attending Provider [phone] MD Seymour Erickson Attending Provider [phone] CRISTINA Salcido Attending Provider Unavailab Kayleigh Cano MD Primary Care Provider [phone] ARELI EFEWONGBE B Primary Care Unavailable LILLIAN BERMUDEZ Referring Unavailable ARNALDO SINGLETONONGBE Camilla Primary Care Unavailable KAYLEIGH SINGLETON Primary Care Unavailable Dr. Kayleigh Singleton Primary Care Provider [phone] Dr. Kayleigh Singleton Referring Provider [phone] Dr. Kayleigh Singleton Primary Care Provider [phone] 0) Dr. Kayleigh Singleton Referring Provider [phone] Dr. Galileo Samaniego Attending Provider [phone] MD Seymour Erickson Attending Provider [phone] MD Seymour Erickson Referring Provider [phone] MD Seymour Erickson Other Provider [phone] Kayleigh Singleton Primary Care Provider [phone] Dr. Kayleigh Singleton Referring Provider [phone] MD Seymour Erickson Attending Provider [phone] Dr. Kayleigh Singleton Attending Provider [phone] Dr. Kayleigh Singleton Primary Care Provider [phone] 0) Dr. Kayleigh Singleton Referring Provider [phone] MD Seymour Erickson Attending Provider [phone] Dr. Kayleigh Singleton Primary Care Provider [phone] Dr. Kayleigh Singleton Referring Provider [phone] MD Seymour Erickson Attending Provider [phone] Dr. Toby Clark Attending Provider [phone] ARELI MACIEL, KAYLEIGH Sampson Primary Care [phone] VINAY MACIEL, REMI Aguiar Attending Unavail able KAYLEIGH SINGLETON MD Primary Care Unavail Dr. Kayleigh Cano Primary Care Provider [phone] Dr. Kayleigh Singleton Referring Provider [phone] MD Seymour Erickson Attending Provider [phone] Dr. Kayleigh Singleton Attending Provider [phone] MD Seymour Erickson Referring Provider [phone] MD Seymour Erickson Other Provider Yolanda SHERIFFS DETECTIVE, SHERIFFS DETECTIVE-C Pily E Attending Provider Yolanda SHERIFFS DETECTIVE, SHERIFFS DETECTIVE-C Pily E Other Provider [phone] Dr. Kayleigh Singleton Primary Care Provider [phone] Dr. Kayleigh Singleton Attending Provider [phone] Dr. Kayleigh Singleton Referring Provider [phone] MD Seymour Erickson Attending Provider [phone] Dr. Toby Clark Attending Provider [phone] MD Seymour Erickson Referring Provider [phone] MD Seymour Erickson Other Provider Yolanda SHERIFFS DETECTIVE, SHERIFFS DETECTIVE-C Pily E Attending Provider [phone] Yolanda SHERIFFS DETECTIVE, SHERIFFS DETECTIVE-C Pily E Other Provider Yolanda SHERIFFS DETECTIVE, SHERIFFS DETECTIVE-C Pily Aguiar Referring Provider Dr. Kayleigh Singleton Primary Care Provider [phone] MD Seymour Erickson Attending Provider [phone] Areli, Dr. Kincaid Referring Provider [phone] Areli, Dr. Kincaid Attending Provider [phone] Dr. Kayleigh Singleton Primary Care Provider [phone] Areli, Dr. Kincaid Referring Provider [phone] MD Seymour Erickson Attending Provider [phone] MD Seymour Erickson Referring Provider [phone] CHADWICK Beltran-C Evie Attending Provider [phone] Kayleigh Singleton MD Primary Care Provider [phone] Kayleigh Singleton Primary Care Provider Areli MACIEL, Dr. Kincaid Primary Care Provider Areli MACIEL, Dr. Kincaid Attending Provider [phone] Areli MACIEL, Dr. Kincaid Referring Provider [phone] Jonathan Hernandez Attending Provider Areli MACIEL, Dr. Kincaid Primary Care Provider Areli MACIEL, Dr. Kincaid Attending Provider [phone] Dr. Kayleigh Singleton MD Referring Provider [phone] Jonathan Hernandez Attending Provider OLEGHE, EFEWONGBE Primary Care Unavailable ZOLTAN ROCHA Attending Unavailable OLEGHE, EFEWONGBE Primary Care Unavailable OLEGHE, EFEWONGBE Referring Unavailable ZOLTAN ROCHA Attending Unavailable OLEGHE, EFEWONGBE Primary Care Unavailable ZOLTAN ROCHA Attending Unavailable Uriel MACIEL, Dr. Zarate Attending Provider Olealeishae, Efewongbe Attending Unavailable Oleghe, Efewongbe Referring Unavailable Oleghe, Efewongbe Primary Care Unavailable Oleghe, Efewongbe Attending Unavailable Oleghe, Efewongbe Referring Unavailable Oleghe, Efewongbe Primary Care Unavailable Oleghe, Efewongbe Attending Unavailable Oleghe, Efewongbe Primary Care Unavailable Oleghe, Efewongbe Referring Unavailable Oleghe, Efewongbe Attending Unavailable Oleghe, Efewongbe Primary Care Unavailable Elliot Trevino Consulting Unavailable Oleghe, Efewongbe Referring Unavailable Oleghe, Efewongbe Primary Care Unavailable Oleghe, Efewongbe Referring Unavailable Seymour Erickson Attending Unavailable Jonathan Hernandez Attending Unavailable Oleghe, Efewongbe Primary Care Unavailable Oleghe, Efewongbe Referring Unavailable Oleghe, Efewongbe Attending Unavailable Oleghe, Efewongbe Primary Care Unavailable Oleghe, Efewongbe Referring Unavailable Oleghe, Efewongbe Referring Unavailable Oleghe, Efewongbe Primary Care Unavailable Elliot Trevino Attending Unavailable Oleghe, Efewongbe Attending Unavailable Oleghe, Efewongbe Referring Unavailable Oleghe, Efewongbe Primary Care Unavailable Oleghe, Efewongbe Primary Care Unavailable Oleghe, Efewongbe Referring Unavailable Iwona Worrell Attending Unavailable Oleghe, Efewongbe Attending Unavailable Oleghe, Efewongbe Referring Unavailable Oleghe, Efewongbe Primary Care Unavailable Oleghe, Efewongbe Attending Unavailable Oleghe, Efewongbe Referring Unavailable Oleghe, Efewongbe Primary Care Unavailable Oleghe, Efewongbe Attending Unavailable Oleghe, Efewongbe Primary Care Unavailable Oleghe, Efewongbe Referring Unavailable Oleghe, Efewongbe Primary Care Unavailable Iwona Worrell Referring Unavailable Iwona Worrell Attending Unavailable Allergies Allergy Classification Reported Allergen(s) Allergy Type Date of Onset Reaction(s) Facility (3 sources) colchicine; Translations: [COLCHICINE] Drug Allergy 6 [facility] Repository (20 sources) Colchicine; Translations: [colchicine] Drug Allergy 6 GI Upset [facility] Work Phone: (20 sources) Doxycycline; Translations: [doxycycline] Drug Allergy 2 Hives [facility] (7 sources) Colchicine Drug Allergy 6 Nausea And Vomiting, Other [facility] (1 source) Colchicine Drug Allergy 5 [facility] Repository (1 source) Doxycycline Drug Allergy 5 [facility] Repository Medications Current Medications Medication Drug Class(es) Dates Sig (Normalized) Sig (Original) acetaminophen 325 mg / HYDROcodone bitartrate 5 mg oral tablet (1 source) Opioid Agonist Start: 04-03-2023 End: 04-06-2023 take 1 tablet by mouth every six hours as needed for pain Alliance 325- 5 mg oral tablet Dose = 1 tab(s), Oral, q6h, PRN for pain, X 3 day(s), # 12 tab(s), 0 Refill(s), Strain of chest wall muscle, 127.3 Start Date: 04/03/23 Stop Date: 04/06/23 Status: Ordered 200 actuat albuterol 0.09 mg/actuat dry powder inhaler (12 sources) beta2-Adrenergic Agonist Start: 09-17-2023 Albuterol Sulfate 108 (90 Base) MCG/ACT aerosol powder Inhale. 09/17/2023 Active Start: 09-17-2023 Albuterol Sulf ate 90 mcg/actuation aerosol powdr breath activated Active 2 NMA INHALATION EVERY 4-6 HOURS as needed for shortness of breath or wheezing September 17, 2023 1:00am Start: 09-17-2023 Albuterol Sulf ate Active 2 INH INHALATION EVERY 4-6 HOURS September 17, 2023 12:00am allopurinol 300 mg oral tablet (20 sources) Xanthine Oxidase Inhibitor Start: 02-12-2024 End: 01-21-2025 take 1 tablet by mouth once daily Allopurinol 300 mg tablet Active 300 mg PO DAILY January 21, 2025 1:22pm Start: 10-23-2023 End: 02-12-2024 Allopurinol 300 mg tablet Discontinued 100 mg PO DAILY October 23, 2023 1:04pm February 12, 2024 9:34am Start: 08-03-2021 End: 10-23-2023 take 1 tablet by mouth once daily Allopurinol 300 mg tablet Discontinued 300 mg PO DAILY May 06, 2023 2:49pm October 23, 2023 1:05pm Start: 10-13-2020 End: 08-03-2021 take 3 tablets by mouth once daily Allopurinol 100 mg tablet Discontinued 300 mg PO DAILY December 30, 2020 8:12am August 03, 2021 11:54am Start: 10-13-2020 End: 08-03-2021 take 300 mg by mouth once daily Allopurinol Discontinu ed 300 MG PO DAILY December 30, 2020 7:12am August 03, 2021 10:54am Start: 09-08-2020 End: 10-13-2020 take 1 tablet by mouth once daily Allopurinol 100 mg tablet Discontinued 100 mg PO DAILY 60 September 08, 2020 3:44pm October 13, 2020 5:46pm Start 1 week after Indomethacin use. Start: 09-08-2020 End: 09-08-2020 take 1 tablet by mouth twice daily Allopurinol 100 mg tablet Discontinued 100 mg PO TWICE A DAY 60 September 08, 2020 1:00am September 08, 2020 3:47pm Start: 06-11-2019 End: 08-26-2019 take 1 tablet by mouth once daily Allopurinol 100 mg tablet Discontinued 100 mg PO DAILY June 11, 2019 12:00am August 26, 2019 4:54pm Comment on above: Take 300 mg by mouth once daily. Blood Glucose Monitoring Suppl (ReliOn True Met Air Gluc Meter) w/Device kit (7 sources) Start: 12-03-2023 Blood Glucose Monitoring Suppl (ReliOn True Met Air Gluc Meter) w/Device kit USE DIRECTED TO CHECK BLOOD GLUCOSE DAILY. 12/03/2023 Active Blood-Glucose Meter (Freestyle Lite Meter) kit (4 sources) Start: 12-02-2023 Blood-Glucose Meter (Freestyle Lite Meter) kit Active 0 .MEDSUPPLY December 02, 2023 12:00am As directed, check blood glucose daily for type 2 DM Start: 12-02-2023 Blood-Glucose Meter (Freestyle Lite Meter) kit Active 0 .MEDSUPPLY December 01, 2023 11:00pm As directed, check blood glucose daily for type 2 DM Calcium Carbonate / vitamin D3 (3 sources) CALCIUM CARBONAT E/VITAMIN D3 (VITAMIN D-3 ORAL) Take by mouth. Active CALCIUM CARBONAT E/VITAMIN D3 (VITAMIN D-3 ORAL) Take by mouth. 0 Active Comment on above: Take by mouth. calcium citrate 500 mg oral tablet (3 sources) take 500 mg by mouth once daily CALCIUM CITRATE ORAL Take 500 mg by mouth once daily. Active Comment on above: Take 500 mg by mouth once daily. celery seed oil, bulk, oil (3 sources) celery seed oil, bulk, oil 500 mg once daily. Active celery seed oil, bulk, oil 500 mg once daily. 0 Active Comment on above: 500 mg once daily. DilTIAZem (Eqv-Cardizem CD) 300 mg/24 hours oral capsule, extended release (1 source) Start: 04-03-20 take 1 capsule by mouth once daily DilTIAZem (Eqv-Cardizem CD) 300 mg/24 hours oral capsule, extended release TAKE 1 CAPSULE BY MOUTH ONCE DAILY Start Date: 04/03/23 Status: Ordered ergocalciferol 1.25 mg oral capsule (4 sources) Provitamin D2 Compound Start: 11-28-19 End: 02-26-20 take 1 capsule by mouth every week, then take 1 capsule by mouth every week ergocalciferol (Vitamin D2) 1.25 MG (37153 UT) capsule Indications: Vitamin D deficiency Take 1 capsule (1.25 mg) by mouth 1 (one) time per week. Take 1 capsule by mouth weekly, for 12 weeks. 12 capsule 11/27/2024 02/25/2025 Active gabapentin 300 mg oral capsule (20 sources) Anti-epileptic Agent Start: 08-10-20 End: 11-24-19 take 2 capsules by mouth at bedtime Gabapentin 300 mg capsule Active 600 mg PO AT BEDTIME 180 90 August 10, 2024 10:17am Start: 08-07-2024 End: 08-10-2024 take 5 tablets by mouth once daily at dinner Gabapentin Enacarbil 600 mg tablet extended release Discontinued 600 mg PO EVERY EVENING as needed for restless leg(s) August 07, 2024 1:00am August 10, 2024 10:17am administer daily at approximately 5 PM with food/evening meal Start: 07-06-2024 End: 08-07-2024 take 2 capsules by mouth at bedtime Gabapentin 300 mg capsule Discontinued 600 mg PO AT BEDTIME 180 July 27, 2024 6:15pm August 07, 2024 5:00pm Start: 04-03-2023 take 1 capsule by mo uth at bedtime gabapentin 300 mg oral capsule TAKE 1 CAPSULE BY MOUTH AT BEDTIME Start Date: 04/03/23 Status: Ordered Start: 03-14-2023 End: 07-06-2024 take 1 capsule by mouth at bedtime Gabapentin 400 mg capsule Discontinued 400 mg PO AT BEDTIME March 02, 2024 8:10am July 06, 2024 10:18am Start: 10-13-2020 End: 03-14-2023 take 1 capsule by mouth at bedtime Gabapentin 100 mg capsule Discontinued 100 mg PO AT BEDTIME February 19, 2023 12:56pm March 14, 2023 4:45pm Start: 03-16-2020 End: 03-14-2023 take 1 capsule by mouth at bedtime Gabapentin 300 mg capsule Discontinued 300 mg PO AT BEDTIME June 25, 2022 11:53am March 14, 2023 4:46pm Start: 04-01-2019 End: 03-16-2020 take 2 capsules by mouth at bedtime Gabapentin 100 mg capsule Discontinued 200 mg PO AT BEDTIME 180 January 02, 2020 9:34am March 16, 2020 6:23pm Start: 04-01-2019 End: 03-16-2020 take 200 mg by mouth at bedtime Gabapentin Discontinue d 200 MG PO AT BEDTIME 180 January 02, 2020 8:34am March 16, 2020 5:23pm Start: 03-19-2018 End: 04-01-2019 take 1 capsule by mouth at bedtime Gabapentin 100 mg capsule Discontinued 100 mg PO AT BEDTIME 60 February 27, 2019 4:58pm April 01, 2019 4:55pm take 1 tablet by renae th once daily GABAPENTIN ORAL Take 1 tablet by mouth once daily. 400mg daily Active take 1 tablet by renae th once daily GABAPENTIN ORAL Take 1 tablet by mouth once daily. 400mg daily 0 Active Comment on above: Take 1 tablet by renae th once daily. 400mg daily ibuprofen 200 mg oral capsule (10 sources) Nonsteroidal Anti-inflammatory Drug Ibuprofen capsule Take by mouth. Active Comment on above: Take by mouth. 600-8 00mg daily as needed for pain Magnesium (5 sources) Start: 11-23-2024 take 1 capsule by mouth once daily Magnesium 400 MG capsule Indications: RLS (restless legs syndrome) Take 400 mg by mouth Nightly. 11/23/2024 Active magnesium carbonate (3 sources) take 400 mg by mouth once daily MAGNESIUM CARBONATE ORAL Take 400 mg by mouth once daily. Active take 400 mg by mouth once daily MAGNESIUM CARBONATE ORAL Take 400 mg by mouth once daily. 0 Active Comment on above: Take 400 mg by mouth once daily. 24 hr metFORMIN hydrochloride 500 mg extended release oral tablet (20 sources) Biguanide Start: 10-05-2024 Metformin 500 mg tablet extended release 24 hr Active 1000 mg PO TWICE A DAY 360 October 05, 2024 10:11am Start: 12-02-2023 End: 10-05-2024 take 1 tablet by mouth twice daily Metformin 500 mg tablet extended release 24 hr Discontinued 500 mg PO TWICE A DAY 180 July 16, 2024 10:25am October 05, 2024 10:14am Start: 03-19-2018 End: 04-01-2019 take 1 tablet by mouth once daily at dinner Metformin (Glucophage Xr) 500 mg tablet extended release 24 hr Discontinued 500 mg PO EVERY EVENING 60 March 19, 2018 12:00am April 01, 2019 4:09pm administer with evening meal 24 hr metoprolol succinate 25 mg extended release oral tablet (14 sources) beta-Adrenergic Nini Start: 08-20-2024 take 1 tablet by mouth once daily metoprolol succinate XL (Toprol-XL) 25 MG 24 hr tablet Take 25 mg by mouth Nightly. 08/20/2024 Active Start: 10-23-2023 End: 10-26-2024 take 1 tablet by mouth every twenty-four hours at bedtime Metoprolol Succinate 25 mg tablet extended release 24 hr Active 25 mg PO AT BEDTIME October 26, 2024 8:02am naproxen 500 mg oral tablet (3 sources) Nonsteroidal Anti-inflammatory Drug Start: 11-09-2016 take 1 tablet by mouth twice daily as needed for pain naproxen (NAPROSYN) 500 mg tablet Indications: Medial epicondylitis of elbow, right Take 1 tablet by mouth twice daily as needed (for pain/inflammation). Take with food. 60 tablet 1 11/09/2016 Active Comment on above: Take 1 tablet by renae twice daily as needed (for pain/inflammation). Take with food. pramipexole dihydrochloride 0.5 mg oral tablet (20 sources) Nonergot Dopamine Agonist Start: 09-03-2024 End: 11-23-2024 pramipexole (Mirapex) 0.5 MG tablet Indications: RLS (restless legs syndrome) TAKE 1/2 TABLET IN THE MORNING, 1/2 TABLET IN THE AFTERNOON, AND 1 TABLET 2-3 HOURS BEFORE BEDTIME. 60 tablet 2 11/23/2024 Active Start: 08-07-2024 End: 10-05-2024 take 0.25 mg by mouth in the morning, then take 1 tablet by mouth at bedtime Pramipexole 0.5 mg tablet Active 1 mg PO AT BEDTIME 60 October 05, 2024 7:44pm Take 0.25mg am, 0.25pm and 0.5 mg 2-3 hrs before bedtime. Start: 07-06-2024 End: 07-31-2024 take 1 tablet by mouth at bedtime Pramipexole 1 mg tablet Discontinued 1 mg PO AT BEDTIME July 06, 2024 10:17am July 31, 2024 1:13pm Start: 02-14-2022 End: 07-06-2024 take 1 tablet by mouth at bedtime Pramipexole 1.5 mg tablet Discontinued 1.5 mg PO AT BEDTIME May 04, 2024 4:25pm July 06, 2024 10:18am Start: 02-06-2022 End: 02-14-2022 take 2 tablets by mouth at bedtime Pramipexole 0.5 mg tablet Discontinued 1 mg PO AT BEDTIME February 06, 2022 11:52am February 14, 2022 8:39am Start: 02-06-2022 End: 02-14-2022 take 1 mg by mouth at bedtime Pramipexole Discontinued 1 MG PO AT BEDTIME February 06, 2022 10:52am February 14, 2022 7:39am Start: 10-14-2020 End: 02-06-2022 take 0.75 mg by mouth at bedtime Pramipexole 0.5 mg ta blet Discontinued 0.75 mg PO AT BEDTIME 135 90 November 14, 2021 4:28pm February 06, 2022 11:53am Start: 10-14-2020 End: 02-06-2022 take 0.75 mg by mouth at bedtime Pramipexole Discontin ued 0.75 MG PO AT BEDTIME 135 90 November 14, 2021 3:28pm February 06, 2022 10:53am Start: 09-09-2019 End: 10-14-2020 take 1 tablet by mouth at bedtime Pramipexole 0.5 mg tablet Discontinued 0.5 mg PO AT BEDTIME September 26, 2020 10:20am October 14, 2020 10:28am Start: 02-04-2018 End: 09-09-2019 take 1 tablet by mouth at bedtime Pramipexole 0.25 mg tablet Discontinued 0.25 mg PO AT BEDTIME April 03, 2019 12:09pm September 09, 2019 9:41am Start: 10-01-2017 End: 02-04-2018 take 1 tablet by mouth at bedtime Pramipexole 0.125 mg tablet Discontinued 0.125 mg PO AT BEDTIME January 09, 2018 8:44am February 04, 2018 3:34pm Comment on above: Take 1 tablet by renae daily at bedtime. predniSONE 20 mg oral tablet (3 sources) Start: 07-17-2022 End: 07-22-2022 take 2 tablets by mouth once daily predniSONE (DELTASONE) 20 mg tablet Take 2 tablets by mouth once daily for 5 days. 10 tablet 0 07/17/2022 07/22/2022 Active Start: 06-03-2022 End: 06-08-2022 take 2 tablets by mouth once daily predniSONE (DELTASONE) 20 mg tablet Take 2 tablets by mouth once daily for 5 days. 10 tablet 06/03/2022 06/08/2022 Comment on above: Take 2 tablets by mo [facility] once daily for 5 days. pregabalin 25 mg oral capsule (2 sources) Start: 12-21-2024 pregabalin (Lyrica) 25 MG capsule Indications: RLS (restless legs syndrome) Take 1 capsule daily in the afternoon 30 capsule 2 12/21/2024 Active Start: 12-21-2024 pregabalin (Ly selina) 75 MG capsule Indications: RLS (restless legs syndrome) Take 1 capsule 1-2 hours before bed. 30 capsule 2 12/21/2024 Active vitamin b12 1 mg oral tablet (7 sources) Vitamin B12 take 1 tablet by mouth once daily cyanocobalamin (Vitamin B-12) 1000 MCG tablet Take 1,000 mcg by mouth daily. Active Completed/Discontinued Medications Medication Drug Class(es) Dates Sig (Normalized) Sig (Original) acetaminophen 500 mg oral tablet (20 sources) Start: 06-19-2021 End: 08-09-2022 take 2 tablets by mouth every six hours as needed for pain Acetaminophen (Tylenol Extra Strength) 500 mg tablet Discontinued 1000 mg PO EVERY 6 HOURS as needed for pain 60 June 19, 2021 1:00am August 09, 2022 3:18pm acetaminophen 325 mg / oxyCODONE hydrochloride 5 mg oral tablet (20 sources) Opioid Agonist Start: 05-08-2023 End: 06-03-2023 Oxycodone-Acetamino phen (Percocet) 5-325 mg tablet Discontinued 2 {tbl} PO Q4H as needed for pain 08 01May 10, 2023 May 14, 2023 12:00am May 15, 2023 12:04am Start: 08-22-2022 End: 08-31-2022 Oxycodone-Acetaminophen (Per cocet) 5-325 mg tablet Discontinued 1 {tbl} PO Q4H as needed for pain 28 02August 22, 2022 August 31, 2022 10:15am amoxicillin 875 mg / clavulanate 125 mg oral tablet (20 sources) Penicillin-class Antibacterial Start: 06-05-2019 End: 07-02-2019 Amoxicillin-Pot Clavulanate 875-125 mg tablet Discontinued 1 {tbl} PO Q12H June 05, 2019 12:00am July 02, 2019 10:34am Start: 06-05-2019 End: 07-02-2019 take 1 tablet by mouth every twelve hours Amoxicillin-Pot Clavulanate Discontinued 1 TABLET PO Q12H June 04, 2019 11:00pm July 02, 2019 9:34am ascorbic acid 500 mg oral tablet (15 sources) Vitamin C Start: 08-15-2022 End: 06-03-2023 take 1 tablet by mouth once daily Ascorbic Acid (Vitamin C) (Vitamin C) 500 mg Tablet Discontinued 500 mg PO DAILY August 15, 2022 1:00am June 03, 2023 2:35pm aspirin 81 mg delayed release oral tablet (20 sources) Platelet Aggregation Inhibitor, Nonsteroidal Anti-inflammatory Drug Start: 04-19-2017 End: 06-03-2023 take 1 tablet by mouth once daily Aspirin (Adult Aspirin Regimen) 81 mg tablet,delayed release (DR/EC) Discontinued 81 mg PO daily October 11, 2017 2:17pm June 03, 2023 2:35pm Comment on above: Take 1 tablet by renae once daily. calcium carbonate 1500 mg oral tablet (20 sources) Start: 10-01-2017 End: 03-16-2020 take 1 tablet by mouth once Calcium Carbonate (Calcium 600) 600 mg calcium (1,500 mg) tablet Discontinued 600 mg PO ONCE October 01, 2017 1:00am March 16, 2020 5:57pm CALCIUM CARBONAT E (CALCIUM 500 ORAL) Take by mouth. Active CALCIUM CARBONAT E (CALCIUM 500 ORAL) Take by mouth. 0 Active Comment on above: Take by mouth. CBD oil (20 sources) Start: 06-03-2019 End: 06-23-2020 CBD oil Discontinued Octo lacho 2018 11:00pm June 23, 2020 4:49pm Start: 06-03-2019 End: 06-23-2020 CBD oil Discontinued Octo lacho 2018 12:00am June 23, 2020 5:49pm cephalexin 500 mg oral capsule (9 sources) Cephalosporin Antibacterial Start: 05-28-2023 End: 06-04-2023 take 1 capsule by mouth every six hours Cephalexin 500 mg capsule Discontinued 500 mg PO EVERY 6 HOURS 28 May 28, 2023 12:00am June 03, 2023 12:00am June 04, 2023 12:05am clarithromycin 250 mg oral tablet (20 sources) Macrolide Antimicrobial Start: 10-01-2017 End: 12-12-2017 take 1 tablet by mouth once Clarithromycin 250 mg tablet Discontinued 250 mg PO ONCE October 01, 2017 1:00am December 12, 2017 3:50pm clindamycin 300 mg oral capsule (9 sources) Lincosamide Antibacterial Start: 05-30-2023 End: 06-09-2023 take 1 capsule by mouth every six hours Clindamycin Hcl 300 mg capsule Discontinued 300 mg PO EVERY 6 HOURS 40 May 30, 2023 12:00am June 08, 2023 12:00am June 09, 2023 12:04am codeine phosphate 2 mg/ml / guaiFENesin 20 mg/ml oral solution (10 sources) Opioid Agonist Start: 09-25-2023 End: 10-05-2023 take 1 mL by mouth every four to six hours as needed for cough Codeine-Guaifenesin 10-100 mg/5 mL liquid Discontinued 10 mL PO EVERY 4-6 HOURS as needed for cough 400 September 25, 2023 4:28pm October 04, 2023 1:00am October 05, 2023 1:16am Start: 09-25-2023 take 1 mL by mouth e very four to six hours Codeine-Guaifenesin Active 10 ML PO EVERY 4-6 HOURS 400 10 September 25, 2023 3:28pm Start: 09-17-2023 End: 09-25-2023 take 1 mL by mouth every four to six hours as needed for cough Codeine-Guaifenesin 10-100 mg/5 mL liquid Discontinued 10 mL PO EVERY 4-6 HOURS as needed for cough 400 September 17, 2023 1:00am September 26, 2023 1:00am September 25, 2023 4:28pm Start: 09-17-2023 End: 09-25-2023 take 1 mL by mouth every four to six hours as needed for cough Codeine-Guaifenesin 10-100 mg/5 mL liquid Discontinued 10 mL PO EVERY 4-6 HOURS as needed for cough 400 September 17, 2023 12:00am September 26, 2023 12:00am September 25, 2023 3:28pm Start: 09-17-2023 End: 09-25-2023 take 1 mL by mouth every four to six hours Codeine-Guaifenesin Discontinued 10 ML PO EVERY 4-6 HOURS 400 September 17, 2023 12:00am September 25, 2023 3:28pm cyclobenzaprine hydrochloride 10 mg oral tablet (8 sources) Muscle Relaxant Start: 06-19-2023 End: 08-13-2023 take 1 tablet by mouth three times daily as needed for muscle spasms Cyclobenzaprine 10 mg tablet Discontinued 10 mg PO THREE TIMES A DAY as needed for muscle spasm 90 June 19, 2023 1:00am August 13, 2023 2:03pm Start: 04-03-2023 End: 04-10-2023 cyclobenzaprine 10 mg oral t ablet Dose : 10 mg = 1 tab(s), Oral, TID, X 7 day(s), # 21 tab(s), 0 Refill(s), 04/10/23 2:45:00 PM EDT Start Date: 04/03/23 Stop Date: 04/10/23 Status: Ordered diclofenac sodium 0.01 mg/mg topical gel (20 sources) Nonsteroidal Anti-inflammatory Drug Start: 06-20-2021 End: 12-20-2022 Diclofenac Sodium (Voltaren Arthritis Pain) 1 % gel Discontinued 4 g TOPICAL .COMPLEX June 20, 2021 1:00am December 20, 2022 4:00pm apply 4 grams topically to the knee 3-4 times PRN Start: 06-20-2021 End: 12-20-2022 Diclofenac Sodium (Voltaren Arthritis Pain) 1 % gel Discontinued 4 GM TOPICAL .COMPLEX June 20, 2021 12:00am December 20, 2022 3:00pm apply 4 grams topically to the knee 3-4 times PRN Start: 06-20-2021 Diclofenac Sod ium (Voltaren Arthritis Pain) 1 % gel Active 4 GM TOPICAL .COMPLEX June 20, 2021 12:00am apply 4 grams topically to the knee 3-4 times daily Comment on above: Apply to affected ar ea as needed. 24 hr dilTIAZem hydrochloride 300 mg extended release oral capsule (20 sources) Calcium Channel Nini Start: 8 End: take 1 capsule by mouth once daily Diltiazem Hcl 300 mg capsule,extended release 24 hr Discontinued 300 mg PO daily February 13, 2022 4:48pm March 20, 2022 9:59am Start: 10-01-2017 End: 10-02-2017 take 1 capsule by mouth every twenty-four hours Diltiazem Hcl 240 mg capsule,extended release 24hr Discontinued 240 mg PO ONCE October 01, 2017 1:00am October 02, 2017 4:21pm Start: 10-01-2017 End: 10-02-2017 take 240 mg by mouth once Diltiazem Hcl Discontinued 2 40 MG PO ONCE October 01, 2017 12:00am October 02, 2017 3:21pm Start: 03-26-2017 take 1 capsule by [facility] once daily diltiazem CD (CARDIZEM CD, CARTIA XT) 240 mg 24 hr capsule Take 1 capsule by mouth once daily. 90 capsule 1 03/26/2017 Active Comment on above: Take 1 capsule by [facility] once daily. doxycycline hyclate 50 mg oral capsule (19 sources) Tetracycline-clas s Drug Start: 06-08-2022 End: 07-10-2022 take 1 capsule by mouth once daily Doxycycline Hyclate 50 mg capsule Discontinued 50 mg PO DAILY June 08, 2022 12:00am July 10, 2022 5:12pm Start: 06-03-2022 End: 06-10-2022 take 1 tablet by mouth twice daily doxycycline (VIBRA-TABS) 100 mg tablet Take 1 tablet by mouth twice daily for 7 days. 14 tablet 06/03/2022 06/10/2022 Comment on above: Take 1 tablet by [facility] twice daily for 7 days. famotidine 20 mg oral tablet (20 sources) Histamine-2 Receptor Antagonist Start: 2019 End: 2020 take 1 tablet by mouth once daily Famotidine 20 mg tablet Discontinued 20 mg PO DAILY March 16, 2020 12:00am September 08, 2020 3:48pm hydroCHLOROthiazide 25 mg oral tablet (20 sources) Thiazide Diuretic Start: 2020 End: 2024 take 1 tablet by mouth once daily in the evening Hydrochlorothiazide 25 mg tablet Discontinued 25 mg PO EVERY EVENING April 17, 2024 3:55pm October 16, 2024 2:08pm Start: 12-10-2019 End: 05-15-2021 take 1 tablet by mouth once daily in the morning Hydrochlorothiazide 12.5 mg tablet Discontinued 12.5 mg PO EVERY MORNING March 08, 2021 8:24am May 15, 2021 4:23pm Start: 12-12-2017 End: 03-19-2018 take 1 tablet by mouth once daily Hydrochlorothiazide 25 mg tablet Discontinued 25 mg PO daily December 12, 2017 12:00am March 19, 2018 4:44pm Start: 10-01-2017 End: 12-12-2017 take 1 tablet by mouth once daily in the morning Hydrochlorothiazide 12.5 mg tablet Discontinued 12.5 mg PO EVERY MORNING 60 October 01, 2017 5:43pm December 12, 2017 4:03pm Start: 10-01-2017 End: 10-01-2017 take 1 tablet by mouth once daily in the morning Hydrochlorothiazide 25 mg tablet Discontinued 25 mg PO EVERY MORNING 60 October 01, 2017 1:00am October 01, 2017 5:43pm Comment on above: Take 25 mg by mouth once daily. indomethacin 50 mg oral capsule (20 sources) Nonsteroidal Anti-inflammatory Drug Start: 09-08-2020 End: 10-20-2020 Indomethacin 50 mg capsule Discontinued 50 mg PO THREE TIMES A DAY as needed for Gout 90 September 08, 2020 3:46pm October 20, 2020 11:35am Use consistently for 5 - 7 days and then as needed for Gout. administer with food or milk Start: 09-08-2020 End: 09-08-2020 take 1 capsule by mouth twice daily at mealtime Indomethacin 50 mg capsule Discontinued 50 mg PO TWICE A DAY 60 September 08, 2020 1:00am September 08, 2020 3:47pm administer with food or milk L. Acidophilus/Bifid. Animalis (Probiotic) 5 billion cell Capsule, Sprinkle (15 sources) Start: 08-15-2022 End: 06-03-2023 take 5 capsules by mouth once daily L. Acidophilus/Bifid. Animalis (Probiotic) 5 billion cell Capsule, Sprinkle Discontinued 1 NMA PO DAILY August 15, 2022 1:00am June 03, 2023 2:36pm Start: 08-15-2022 End: 06-03-2023 take 5 capsules by mouth once daily L. Acidophilus/Bifid. Animalis (Probiotic) 5 billion cell Capsule, Sprinkle Discontinued 1 NMA PO DAILY August 15, 2022 12:00am June 03, 2023 1:36pm Start: 08-15-2022 End: 06-03-2023 L. Acidophilus/Bifid. Animal is (Probiotic) 5 billion cell Capsule, Sprinkle Discontinued 1 CAP PO DAILY August 15, 2022 12:00am June 03, 2023 1:36pm Start: 08-15-2022 End: 06-03-2023 L. Acidophilus/Bifid. Animal is (Probiotic) 5 billion cell Capsule, Sprinkle Discontinued 1 CAP PO DAILY August 15, 2022 1:00am June 03, 2023 2:36pm Start: 08-15-2022 L. Acidophilus /Bifid. Animalis (Probiotic) 5 billion cell Capsule, Sprinkle Active 1 CAP PO DAILY August 15, 2022 1:00am 3 ml liraglutide 6 mg/ml pen injector (4 sources) GLP-1 Receptor Agonist Start: 10-15-2024 End: 10-23-2024 inject 0.6 mg by subcutaneous injection once daily, then inject 1.8 mg by subcutaneous injection once daily Liraglutide (Victoza 3-Enrike) 0.6 mg/0.1 mL (18 mg/3 mL) pen injector Discontinued 0 SC .COMPLEX October 15, 2024 1:00am October 23, 2024 12:06pm inject 0.6mg subcutaneously once daily x 7 days; then 1.2mg daily, not to exceed 1.8mg/day subcut Liraglutide (Victoza 3-Enrike) 0.6 mg/0.1 mL (18 mg/3 mL) pen injector (3 sources) Start: 10-23-2024 End: 01-08-2025 inject 0.6 mg by subcutaneous injection once daily, then inject 1.8 mg by subcutaneous injection once daily Liraglutide (Victoza 3-Enrike) 0.6 mg/0.1 mL (18 mg/3 mL) pen injector Discontinued 0 SC .COMPLEX October 23, 2024 12:06pm January 08, 2025 2:00pm inject 0.6mg subcutaneously once daily x 7 days; then 1.2mg daily, not to exceed 1.8mg/day subcut lisinopril 40 mg oral tablet (20 sources) Angiotensin Converting Enzyme Inhibitor Start: 03-19-2018 End: 12-03-2024 take 1 tablet by mouth once daily Lisinopril 40 mg tablet Discontinued 40 mg PO daily September 07, 2024 11:05am December 03, 2024 10:00am Start: 03-19-2017 End: 03-19-2018 take 1 tablet by mouth once daily Lisinopril 20 mg tablet Discontinued 20 mg PO daily October 11, 2017 2:17pm March 19, 2018 4:37pm Comment on above: Take 1 tablet by [facility] once daily. magnesium hydroxide 80 mg/ml oral suspension (2 sources) End: 5 magnesium hydroxide (Milk of Magnesia) 400 MG/5ML suspension Take by mouth Nightly. 11/23/2024 Discontinued (Med list cleanup) magnesium oxide 250 mg oral tablet (20 sources) Start: 8 End: 0 take 1 tablet by mouth once Magnesium Oxide 250 mg tablet Discontinued 250 mg PO ONCE October 01, 2017 1:00am March 16, 2020 5:57pm meloxicam 15 mg oral tablet (20 sources) Nonsteroidal Anti-inflammatory Drug Start: 1 End: 1 take 1 tablet by mouth once daily Meloxicam (Mobic) 15 mg tablet Discontinued 15 mg PO DAILY May 22, 2021 12:00am June 19, 2021 5:31pm to start after Medrol Start: 03-11-2020 End: 09-08-2020 take 1 tablet by mouth once daily as needed for pain Meloxicam 15 mg tablet Discontinued 0 .ROUTE .COMPLEX 60 June 28, 2020 10:31am September 08, 2020 3:46pm TAKE 1 TABLET BY MOUTH ONCE DAILY NEEDED FOR PAIN Start: 04-01-2019 End: 08-26-2019 take 1 tablet by mouth once daily Meloxicam 15 mg tablet Discontinued 15 mg PO DAILY June 03, 2019 2:52pm August 26, 2019 4:55pm Comment on above: Take 15 mg by mouth once daily. methylPREDNISolone 4 mg oral tablet (20 sources) Corticosteroid Start: 2023 End: 2023 take 1 tablet by mouth once Methylprednisolone (Medrol (Enrike)) 4 mg tablets,dose pack Discontinued 0 PO per package directions September 17, 2023 1:00am September 25, 2023 3:53pm PO PER PKG DIR Start: 10-20-2020 End: 11-07-2020 take 1 tablet by mouth once Methylprednisolone (Medrol (Enrike)) 4 mg tablets,dose pack Discontinued 0 PO per package directions October 20, 2020 1:00am November 07, 2020 4:08pm PO PER PKG DIR Start: 06-03-2019 End: 06-11-2019 take 1 tablet by mouth once Methylprednisolone (Medrol (Enrike)) 4 mg tablets,dose pack Discontinued 0 PO per package directions June 03, 2019 12:00am June 11, 2019 5:26pm PO PER PKG DIR Start: 11-09-2016 End: 06-03-2022 methylPREDNISolone (MEDROL, ENRIKE,) 4 mg Dose-Pack Indications: Medial epicondylitis of elbow, right As Instructed per package 1 Package 0 11/09/2016 06/03/2022 Discontinued Comment on above: As Instructed per cristina carrasquillo multivitamin,tx-i osmel-minerals (16 sources) Start: 03-16-2020 End: 06-03-2023 take 1 tablet by mouth once daily multivitamin,tx-iron-m inerals Discontinued 1 TABLET PO DAILY March 15, 2020 11:00pm June 03, 2023 1:36pm Start: 03-16-2020 End: 06-03-2023 take 1 tablet by mouth once daily multivitamin,zf-ahga-ngqgldua Discontinu ed 1 TABLET PO DAILY March 16, 2020 12:00am June 03, 2023 2:36pm Start: 03-16-2020 take 1 tablet by renae th once daily multivitamin,gs-kxjh-ulhjhvqp Active 1 T ABLET PO DAILY March 15, 2020 11:00pm Start: 03-16-2020 take 1 tablet by renae th once daily multivitamin,gk-cpey-urmdqiyx Active 1 T ABLET PO DAILY March 16, 2020 12:00am Multivitamin,Fo-Yttg-Xtowvsj s (Complete Multivitamin) tablet (4 sources) Start: 03-16-2020 End: 06-03-2023 Multivitamin,Zy-Djub-Rupiuui s (Complete Multivitamin) tablet Discontinued 1 {tbl} PO DAILY March 16, 2020 12:00am June 03, 2023 2:36pm Start: 03-16-2020 End: 06-03-2023 Multivitamin,Mu-Iehg-Gwongsw s (Complete Multivitamin) tablet Discontinued 1 {tbl} PO DAILY March 15, 2020 11:00pm June 03, 2023 1:36pm omega-3 acid ethyl esters (fci) 1000 mg oral capsule (14 sources) Start: 12-20-2022 End: 06-03-2023 [place]-3 Acid Ethyl Esters 1 gram capsule Discontinued 1 NMA PO DAILY December 20, 2022 12:00am June 03, 2023 2:36pm Start: 12-20-2022 End: 06-03-2023 take 1 capsule by mouth once daily [place]-3 Acid Ethyl Esters Discontinued 1 CAP PO DAILY December 19, 2022 11:00pm June 03, 2023 1:36pm omeprazole 40 mg delayed release oral capsule (20 sources) Proton Pump Inhibitor Start: 09-08-2020 End: 11-30-2024 take 1 capsule by mouth once daily 30 minutes before breakfast Omeprazole 40 mg capsule,delayed release(DR/EC) Discontinued 40 mg PO DAILY June 08, 2024 12:19pm November 30, 2024 9:32am Take 30 minutes before breakfast Comment on above: Take 40 mg by mouth once daily. ondansetron 4 mg oral tablet (9 sources) Serotonin-3 Receptor Antagonist Start: 05-10-2023 End: 06-03-2023 take 1 tablet by mouth once daily as needed for nausea and vomiting Ondansetron Hcl 4 mg tablet Discontinued 4 mg PO DAILY as needed for nausea and vomiting 14 May 10, 2023 12:00am June 03, 2023 2:36pm potassium gluconate 2.13 meq oral tablet (20 sources) Start: 10-01-2017 End: 12-12-2017 take 1 tablet by mouth once daily Potassium Gluconate 500 mg (83 mg) tablet Discontinued 10 meq PO daily October 01, 2017 1:00am December 12, 2017 3:50pm potassium glucon ate 550 mg (90 mg) tab Take by mouth once daily. Active Comment on above: Take by mouth once d aily. rOPINIRole 0.5 mg oral tablet (4 sources) Nonergot Dopamine Agonist Start: 07-31-2024 End: 08-07-2024 take 1 tablet by mouth once daily Ropinirole 0.5 mg tablet Discontinued 0.5 mg PO daily July 31, 2024 1:00am August 07, 2024 7:23pm Tirzepatide (Mounjaro) 2.5 mg/0.5 mL pen injector (4 sources) Start: 10-05-2024 End: 10-15-2024 Tirzepatide (Mounjaro) 2.5 mg/0.5 mL pen injector Discontinued 2.5 mg SC EVERY WEEK October 05, 2024 1:00am October 15, 2024 5:31pm for 4 weeks Start: 10-05-2024 End: 10-15-2024 Tirzepatide (Mounjaro) 2.5 m g/0.5 mL pen injector Discontinued 2.5 mg SC EVERY WEEK 2 October 05, 2024 12:00am October 15, 2024 4:31pm for 4 weeks triamcinolone acetonide 1 mg/ml topical cream (17 sources) Corticosteroid Start: 07-10-2022 End: 08-09-2022 Triamcinolone Acetonide 0.1 % cream Discontinued 1 NMA TOPICAL THREE TIMES A DAY as needed for rash, itching 80 July 10, 2022 1:00am August 09, 2022 3:18pm vit C 30 mg-s.oliveira 250 mg-celery seed 75 mg-grape seed extrt capsule (16 sources) Start: 10-01-2017 End: 03-19-2018 vit C 30 mg-s.oliveira 250 mg-celery seed 75 mg-grape seed extrt capsule Discontinued CAP PO October 01, 2017 12:00am March 19, 2018 3:09pm Start: 10-01-2017 End: 03-19-2018 vit C 30 mg-s.oliveira 250 mg- celery seed 75 mg-grape seed extrt capsule Discontinued CAP PO October 01, 2017 1:00am March 19, 2018 4:09pm Vit C-S.Onchcp-Wgbdmy-Hvurw Sd [id number] mg capsule (4 sources) Start: 10-01-2017 End: 03-19-2018 Vit C-S.Eyxudm-Tsutqf-Tnllh Sd [id number] mg capsule Discontinued NMA PO October 01, 2017 1:00am March 19, 2018 4:09pm Start: 10-01-2017 End: 03-19-2018 Vit C-S.Mushgt-Jbxxai-Bbbju Sd [id number] mg capsule Discontinued NMA PO October 01, 2017 12:00am March 19, 2018 3:09pm Problems Active Problems Problem Classification Problem Date Documented Date Episodic/Chronic Cardiac dysrhythmias (20 sources) Cardiac arrhythmia; Translations: [Cardiac arrhythmia, unspecified] 09-20-2016 Chronic Cardiac dysrhythmias (20 sources) Tachycardia; Translations: [Tachycardia, unspecified] Episodic Chronic obstructive pulmonary disease and bronchiectasis (6 sources) Bronchitis; Translations: [Bronchitis, not specified as acute or chronic] 09-17-2023 Episodic Complications of surgical procedures or medical care (20 sources) Seroma following procedure; Translations: [Seroma after procedure] 11-23-2022 Episodic Diabetes mellitus without complication (20 sources) Diabetes mellitus; Translations: [Type 2 diabetes mellitus without complications] Onset: 01-20-2025 07-11-2021 Chronic Diabetes mellitus without complication (20 sources) Prediabetes; Translations: [Prediabetes] Episodic Disorders of lipid metabolism (20 sources) Mixed hyperlipidemia; Translations: [Mixed hyperlipidemia] Onset: 10-05-2024 03-19-2017 Chronic Esophageal disorders (20 sources) Gastroesophageal reflux disease; Translations: [Gastro-esophageal reflux disease without esophagitis] Onset: 01-20-2025 09-08-2020 Chronic Essential hypertension (20 sources) Essential hypertension; Translations: [Essential (primary) hypertension] Onset: 01-20-2025 Chronic Gout and other crystal arthropathies (20 sources) Gout; Translations: [Gout, unspecified] 10-21-2020 Chronic Joint disorders and dislocations; trauma-related (20 sources) Derangement of right knee; Translations: [Unspecified internal derangement of right knee] 05-24-2021 Chronic Nutritional deficiencies (1 source) Vitamin D deficiency; Translations: [Vitamin D deficiency, unspecified] 01-05-2025 Chronic Osteoarthritis (17 sources) Osteoarthrosis of the carpometacarpal joint of the thumb; Translations: [Unilateral primary osteoarthritis of first carpometacarpal joint, right hand] 03-22-2023 Chronic Other circulatory disease (5 sources) Pulmonary congestion ; Translations: [Other specified symptoms and signs involving the circulatory and respiratory systems] 09-25-2023 Episodic Other connective tissue disease (19 sources) Lateral epicondylitis of right humerus; Translations: [Lateral epicondylitis, right elbow] 03-31-2022 Episodic Other connective tissue disease (20 sources) Lateral epicondylitis, right elbow; Translations: [Lateral epicondylitis] Episodic Other connective tissue disease (10 sources) Pain in thumb ; Translations: [Pain in right finger(s)] 03-22-2023 Episodic Other connective tissue disease (7 sources) Pain in right finger(s); Translations: [Pain in limb] 03-22-2023 Episodic Other connective tissue disease (9 sources) Tenosynovitis of right radial styloid; Translations: [Radial styloid tenosynovitis [de Quervain]] 03-26-2023 Episodic Other connective tissue disease (3 sources) Radial styloid tenosynovitis [de Quervain]; Translations: [Radial styloid tenosynovitis] 03-26-2023 Episodic Other connective tissue disease (4 sources) Cramp in lower limb; Translations: [Cramp and spasm] 01-08-2025 Episodic Other connective tissue disease (1 source) Cramp and spasm; Translations: [Cramp and spasm] Onset: 01-20-2025 Episodic Other hereditary and degenerative nervous system conditions (20 sources) Restless legs; Translations: [Restless legs syndrome] Onset: 11-23-2024 03-19-2018 Chronic Other hereditary and degenerative nervous system conditions (14 sources) Restless legs syndrome; Translations: [Restless legs syndrome (RLS)] Onset: 11-23-2024 Chronic Other inflammatory condition of skin (2 sources) Pruritus, unspecified; Translations: [Unspecified pruritic disorder] Episodic Other injuries and conditions due to external causes (15 sources) Seroma due to trauma; Translations: [Traumatic secondary and recurrent hemorrhage and seroma, initial encounter] 11-23-2022 Episodic Other injuries and conditions due to external causes (5 sources) Traumatic secondary and recurrent hemorrhage and seroma, initial encounter; Translations: [Post-traumatic seroma] 12-07-2022 Episodic Other liver diseases (20 sources) Fatty (change of) liver, not elsewhere classified; Translations: [Nonalcoholic fatty liver disease] Onset: 01-27-2025 01-31-2023 Chronic Other liver diseases (14 sources) Elevated liver enzymes level; Translations: [Abnormal levels of other serum enzymes] 12-23-2022 Episodic Other liver diseases (1 source) Abnormal levels of other serum enzymes; Translations: [Abnormal levels of other serum enzymes] Onset: 01-27-2025 Episodic Other lower respiratory disease (20 sources) Dyspnea on exertion; Translations: [Other forms of dyspnea] 08-26-2019 Episodic Other lower respiratory disease (7 sources) Cough; Translations: [Acute cough] Episodic Other lower respiratory disease (7 sources) Rib pain; Translations: [Pleurodynia] 06-19-2023 Episodic Other lower respiratory disease (3 sources) Pleurodynia; Translations: [Chest pain, unspecified] 06-19-2023 Episodic Other lower respiratory disease (1 source) Cough; Translations: [Acute cough] 06-04-2022 Episodic Other non-traumatic joint disorders (20 sources) Pain in right knee; Translations: [Right knee pain] 05-24-2021 Episodic Other non-traumatic joint disorders (3 sources) Pain in unspecified elbow; Translations: [Pain in joint, upper arm] 06-24-2023 Episodic Other nutritional; endocrine; and metabolic disorders (20 sources) Obesity; Translations: [Obesity, unspecified] 10-03-2017 Chronic Other nutritional; endocrine; and metabolic disorders (4 sources) Body mass index 30+ - obesity; Translations: [Obesity, unspecified] 12-23-2023 Chronic Other upper respiratory infections (6 sources) Sinusitis; Translations: [Chronic sinusitis, unspecified] 09-17-2023 Chronic Other upper respiratory infections (2 sources) Sore throat symptom; Translations: [Acute pharyngitis, unspecified] Episodic Residual codes; unclassified (20 sources) Sleep apnea; Translations: [Sleep apnea, unspecified] 12-12-2017 Chronic Residual codes; unclassified (6 sources) Obstructive sleep apnea syndrome; Translations: [Obstructive sleep apnea (adult) (pediatric)] Onset: 04-12-2017 04-12-2017 Chronic Residual codes; unclassified (14 sources) Hypersomnia; Translations: [Hypersomnia, unspecified] 12-20-2022 Chronic Residual codes; unclassified (5 sources) Hypersomnia, unspecified; Translations: [Hypersomnia, unspecified] 12-20-2022 Chronic Spondylosis; intervertebral disc disorders; other back problems (20 sources) Backache; Translations: [Dorsalgia, unspecified] 04-01-2019 Episodic Sprains and strains (20 sources) Strain of unspecified muscle, fascia and tendon at shoulder and upper arm level, left arm, initial encounter; Translations: [Sprain of foot] Onset: 10-30-2017 Episodic Superficial injury; contusion (20 sources) Contusion of right chest wall; Translations: [Contusion of right front wall of thorax, initial encounter] 05-25-2019 Episodic Unclassified (1 source) Acute cough; Translations: [Acute cough] Onset: 06-04-2022 Unclassified (2 sources) New Patient; Translations: [New Patient] Onset: 09-24-2024 Viral infection (20 sources) Disease caused by 2019-nCoV; Translations: [COVID-19] 07-12-2021 Episodic Comment on above: Disregard instructio ns and information concerning . This documentation was made in error. 07/10/2021 - Positiv e test date Past or Other Problems Problem Classification Problem Date Documented Date Episodic/Chronic Abdominal hernia (3 sources) Umbilical hernia; Translations: [Umbilical hernia without obstruction or gangrene] Onset: 04-01-2017 04-01-2017 Episodic Malaise and fatigue (1 source) Other fatigue; Translations: [Other fatigue] Onset: 04-04-2017 Episodic Other connective tissue disease (3 sources) Medial epicondylitis of right humerus; Translations: [Medial epicondylitis, right elbow] Onset: 12-13-2016 12-13-2016 Episodic Other connective tissue disease (3 sources) Diastasis recti; Translations: [Separation of muscle (nontraumatic), other site] Onset: 04-01-2017 04-01-2017 Episodic Other screening for suspected conditions (not mental disorders or infectious disease) (20 sources) Patient encounter status; Translations: [Encounter for screening for malignant neoplasm of colon] Onset: 04-14-2024 Episodic Results Test Name Value Interpretation Reference Range Facility ABD Limited w/ Elastography n 01-27-2025 ABD Limited w/ Elastography [facility] [address] [place] [id number] ABD Limited w/ Elastography MR#: [id number] Acct: [id number] Name: GIOVANNI JOHNSON Rep #: [id number] : 1975 M 49 From: Gilson stafford MD PCP: Dr. Kayleigh Singleton MD Status: REG CLI Study: ABD Limited w/ Elastography Date of Exam: 01/10 04/05 Exam# [id number] Ordering Dr: Kayleigh Singleton MD PROCEDURE: ABD LIMITED W/ ELASTOGRAPHY REASON FOR EXAM: ELEVATED LIVER ENZYMES COMPARISON: None. TECHNIQUE: Right upper quadrant abdominal ultrasound. [facility] Elast[facility] shear wave elastography for non- invasive assessment of liver tissue stiffness. [facility] EPIQ Elite. FINDINGS: LIVER: Size: Enlarged (hepatomegaly) Length: 19.4 cm Echotexture: Diffusely echogenic suggesting fatty infiltration Contour: Normal Lesions: None identified Elastography: EQI Med: 5.83 kPa EQI Med Bird: 1.39 m/s IQR/Med: 16.8 %* GALLBLADDER: Normal COMMON BILE DUCT: Normal measuring 4 mm. . PANCREAS: Visualized portions are unremarkable. The distal body and tail are obscured by bowel gas. Visualized portions of the right kidney are unremarkable. No right upper quadrant ascites. US/ABD Limited w/ Elastography IMPRESSION: Mild hepatic fibrosis. Hepatomegaly and fatty infiltration of the liver. Reference Values: SRU <1.37 m/s (5.7kPa): No to mild fibrosis 1.37 m/s - 2.2 m/s: Moderate to severe fibrosis >2.2 m/s (15kPa): Significant fibrosis / cirrhosis METAVIR Score F2 or higher: 1.34 m/s (5.7kPa) F3 or higher: 1.55 m/s (7.3kPa) F4: 1.80 m/s (10kPa) * If the IQR/Med is >30%, the variance in the measurements is a large and the accuracy of the measurement may be in question. Reading Location: [place] [address] CC: Dr. Kayleigh Singleton MD [employer] Supervisor: Signed Normal [facility] Basic Metabolic Profile (BMP )on 01-27-2025 BUN/CRE 18.6 RATIO Normal 10-20 [facility] Comment on above: Order Comment: FOLLO W with PCP Performed By: #### L 500.2500 #### [facility] Laboratory [address] [place], [place], [id number] Calcium [Mass/Vol] 9.4 mg/dL Normal 7.6-11.0 [facility] Comment on above: Order Comment: FOLLO W with PCP Performed By: #### L 500.2500 #### [facility] Laboratory [address] [place], [address] Chloride [Moles/Vol] 101 mmol/L Normal 98-108 [facility] Comment on above: Order Comment: FOLLO W with PCP Performed By: #### L 500.2500 #### [facility] Laboratory [address] [place], [address] CO2 [Moles/Vol] 26.5 mmol/L Normal 21.0-32.0 [facility] Comment on above: Order Comment: FOLLO W with PCP Performed By: #### L 500.2500 #### [facility] Laboratory [address] [place], [address] Creatinine [Mass/Vol] 1.05 mg/dL Normal 0.70-1.20 [facility] Comment on above: Order Comment: FOLLO W with PCP Performed By: #### L 500.2500 #### [facility] Laboratory [address] [place], [address] GAP 11 Normal 5-15 [facility] Comment on above: Order Comment: FOLLO W with PCP Performed By: #### L 500.2500 #### [facility] Laboratory [address] [place], [address] GFR/1.73 sq M.predicted among non-blacks MDRD (S/P/Bld) [Vol rate/Area] 87 mL/min/{1.73_m2} Normal >60 [facility] Comment on above: Order Comment: FOLLO W with PCP Result Comment: mL/m in/1.73m2 CKD-EPI Creatinine Equation (2020) Performed By: #### L 500.2500 #### [facility] Laboratory [address] [place], [address] Glucose [Mass/Vol] 112 mg/dL High 70-99 [facility] Comment on above: Order Comment: FOLLO W with PCP Performed By: #### L 500.2500 #### [facility] Laboratory [address] [place], [place], [address] Potassium [Moles/Vol] 4.4 mmol/L Normal 3.3-5.1 [facility] Comment on above: Order Comment: FOLLO W with PCP Performed By: #### L 500.2500 #### [facility] Laboratory [address] [place], [address] Sodium [Moles/Vol] 138 mmol/L Normal 133-145 [facility] Comment on above: Order Comment: FOLLO W with PCP Performed By: #### L 500.2500 #### [facility] Laboratory [address] [place], [place], [address] Urea nitrogen [Mass/Vol] 20 mg/dL High 4-19 [facility] Comment on above: Order Comment: FOLLO W with PCP Performed By: #### L 500.2500 #### [facility] Laboratory [address] [place], [place], [address] Gastroenterology Visit Repor ton 01-22-2025 Gastroenterology Visit Report [facility] Gastroenterology [address] [place] [address] OFFICE VISIT Date of Service: 01/22/25 MR#: [id number] Acct: [id number] Name: GIOVANNI JOHNSON Rep #: [id number] : 1975 Provider: Dr. Elliot winchester MD Age/Sex: 49/M [place] [facility] [place]: Signed Intake Vital Signs 01/08/25 13:37 01/22/25 14:01 Height 6 ft 3 in 6 ft 3 in Weight: 298 lb 292 lb BMI 37.2 36.5 BP 132/78 H 117/78 Blood Pressure Location Rt brachial Lt brachial Position Sitting Sitting Respiration 16 Pulse 96 98 Pulse Source Monitor Temp 96.6 F L Temp Source Temporal Pulse Oximetry (%) 95 95 Oxygen Delivery Method room air room air Intake Visit Reasons: FATTY LIVER Allergies doxycycline Allergy (Unknown, Verified 01/22/25 14:01) Hives colchicine Adverse Reaction (Severe, Verified 01/22/25 14:01) Emesis Medications ???Medication ???Instructions ???Recorded ???Confirmed ???Type albuterol sulfate 90 mcg/actuation 2 inh inhalation Q4-6H PRN 09/1701/22/25 Rx breath activated powder inhaler shortness of breath or wheezing #1 ea blood sugar diagnostic (FreeStyle #100 ea 12/02/23 01/22/25 Rx Lite Strips) blood-glucose meter (FreeStyle #1 ea 12/02/23 01/22/25 Rx Lite Meter kit) lancets 28 gauge (FreeStyle #200 ea 12/02/23 01/22/25 Rx Lancets) diltiazem HCl 300 mg capsule,24 300 mg PO QPM #90 caps 04/14/24 Rx hr,extended release gabapentin 300 mg capsule 600 mg (2 x 300 mg) PO QHS 3 08/1001/22/25 Rx months #180 caps metformin 500 mg tablet,extended 1,000 mg (2 x 500 mg) PO BID 3 01/22/25 Rx release 24 hr months #360 tabs pramipexole 0.5 mg tablet 1 mg (2 x 0.5 mg) PO QHS #60 tabs 10/05/24 01/22/25 Rx hydrochlorothiazide 25 mg tablet 25 mg PO QPM #90 tabs 10/16/24 Rx metoprolol succinate 25 mg 25 mg PO QHS #90 tabs 10/26/24 Rx tablet,extended release 24 hr omeprazole 40 mg capsule,delayed 40 mg PO DAILY #90 caps 11/30/24 0 01/22/25 Rx release lisinopril 40 mg tablet 40 mg PO QDAY #90 tabs 12/03/24 Rx allopurinol 300 mg tablet 300 mg PO DAILY #90 tabs 01/21/25 01/22/25 Rx rosuvastatin 10 mg tablet 10 mg PO DAILY 1 month #30 tabs 01/22/25 Rx PFSH Medical History Leg cramps Screening, iron deficiency anemia Obesity (BMI 30-39.9) Chest congestion Cough Rib pain on left side Partial tear of common extensor tendon of right elbow Fatty liver BiPAP (biphasic positive airway pressure) dependence De Quervain's tenosynovitis, right Osteoarthritis of carpometacarpal joint of right thumb Pain of right thumb Type 2 diabetes mellitus Elevated liver enzymes Hypersomnolence Right lateral epicondylitis Strain of right biceps Cardiology follow-up encounter History of echocardiogram Wears contact lenses Loose, teeth Prediabetes Restless legs Back pain Gastric reflux History of stress test Health care maintenance Colon cancer screening COVID-19 Mixed hyperlipidemia Essential hypertension Obesity Gout Arrhythmia Tachycardia Surgical History Hx of elbow surgery Hx of colonoscopy History of hernia repair History of sinus surgery Family History Mother Hypertension Grandfather Heart disease Myocardial infarction, Onset Age: 62 Grandmother Hypertension Heart disease Father Liver failure Social History Smoking Status: Never smoker alcohol intake: current alcohol intake frequency: holidays/special occasions only substance use type: does not use caffeine: Yes Type: coffee Number of servings: 2 and tea Number of servings: 2 what type of physical activity do you participate in: walking frequency: 1-2 times per week HPI HPI Details: GIOVANNI JOHNSON, is a 49 M who presents to the office today for initial consult. PCP referred for fatty liver. Patient denies any active symptoms of abdominal pain, nausea vomiting GI bleed or alteration of bowel movement. He has history of acid reflux for 7 to 8 years and is on omeprazole. Never had EGD. His liver chemistry, transaminases have been elevated since October 2020. Past medical history of diabetes mellitus type 2, hypertension and dyslipidemia and obesity and obstructive sleep apnea on BiPAP Family history: His father of complication of Jesse disease at age of 47. Mom had breast cancer and hypothyroidism due to chemotherapy. Denies first-degree history of autoimmune disease including celiac disease, UC, autoimmune hepatitis, pancreatitis, adrenalitis or pituitary Social histor (more content not included)... Normal [facility] Anion gap in Serum or Plasma Ordered By: Kayleigh Singleton on 01-08-2025 Anion gap [Moles/Vol] 13 mmol/L 12-24 [facility] BUN/creatinine ratioOrdered By: Kayleigh Singleton on 01-08-2025 Urea nitrogen/Creatinine [Mass ratio] 19.2 mg/mg 10-20 [facility] Bilirubin, totalOrdered By: Kayleigh Singleton on 01-08-2025 Bilirubin [Mass/Vol] 0.46 mg/dL 0.00-1.30 [facility] Carbon dioxide, total [Moles /volume] in Central venous bloodOrdered By: Kayleigh Singleton on 01-08-2025 CO2 [Moles/Vol] 24.9 mmol/L 21.0-32.0 [facility] Chloride assayOrdered By: Mckenzie stormemir Singleton on 01-08-2025 Chloride [Moles/Vol] 99 mmol/L 98-108 [facility] Comprehensive Metabolic Prof ilon 01-08-2025 Albumin [Mass/Vol] 4.6 g/dL Normal 3.5-5.0 [facility] Comment on above: Performed By: #### L 500.3400, L500.4100 #### [facility] Laboratory [address] [place], [address] Albumin/Globulin [Mass ratio] 1.4 {ratio} Normal 0.9-2.4 [facility] Comment on above: Performed By: #### L 500.3400, L500.4100 #### [facility] Laboratory [address] [place], [address] ALK PHOS 86 U/L Normal 40-129 [facility] Comment on above: Performed By: #### L 500.3400, L500.4100 #### [facility] Laboratory [address] [place], [address] ALT [Catalytic activity/Vol] 108 U/L High <=46 [facility] Comment on above: Performed By: #### L 500.3400, L500.4100 #### [facility] Laboratory [address] [place], [address] AST [Catalytic activity/Vol] 58 U/L High <=37 [facility] Comment on above: Performed By: #### L 500.3400, L500.4100 #### [facility] Laboratory [address] [place], [address] Bilirubin [Mass/Vol] 0.46 mg/dL Normal 0.00-1.30 [facility] Comment on above: Performed By: #### L 500.3400, L500.4100 #### [facility] Laboratory [address] [place], [address] BUN/CRE 19.2 RATIO Normal 10-20 [facility] Comment on above: Performed By: #### L 500.3400, L500.4100 #### [facility] Laboratory [address] [place], [address] Calcium [Mass/Vol] 9.9 mg/dL Normal 7.6-11.0 [facility] Comment on above: Performed By: #### L 500.3400, L500.4100 #### [facility] Laboratory [address] [place], [address] Chloride [Moles/Vol] 99 mmol/L Normal 98-108 [facility] Comment on above: Performed By: #### L 500.3400, L500.4100 #### [facility] Laboratory [address] [place], [address] CO2 [Moles/Vol] 24.9 mmol/L Normal 21.0-32.0 [facility] Comment on above: Performed By: #### L 500.3400, L500.4100 #### [facility] Laboratory [address] [place], [address] Creatinine [Mass/Vol] 1.44 mg/dL High 0.70-1.20 [facility] Comment on above: Performed By: #### L 500.3400, L500.4100 #### [facility] Laboratory [address] [place], [address] GAP 13 Normal 5-15 [facility] Comment on above: Performed By: #### L 500.3400, L500.4100 #### [facility] Laboratory [address] [place], [address] GFR/1.73 sq M.predicted among non-blacks MDRD (S/P/Bld) [Vol rate/Area] 60 mL/min/{1.73_m2} Normal >60 [facility] Comment on above: Result Comment: mL/m in/1.73m2 CKD-EPI Creatinine Equation (2020) Performed By: #### L 500.3400, L500.4100 #### [facility] Laboratory [address] [place], [address] Globulin (S) [Mass/Vol] 3.2 g/dL Normal 2.2-4.2 [facility] Comment on above: Performed By: #### L 500.3400, L500.4100 #### [facility] Laboratory [address] [place], [address] Glucose [Mass/Vol] 115 mg/dL High 70-99 [facility] Comment on above: Performed By: #### L 500.3400, L500.4100 #### [facility] Laboratory [address] [place], [address] Potassium [Moles/Vol] 4.2 mmol/L Normal 3.3-5.1 [facility] Comment on above: Performed By: #### L 500.3400, L500.4100 #### [facility] Laboratory [address] [place], [address] Sodium [Moles/Vol] 136 mmol/L Normal 133-145 [facility] Comment on above: Performed By: #### L 500.3400, L500.4100 #### [facility] Laboratory [address] [place], [address] T PROT 7.8 g/dL Normal 5.9-8.4 [facility] Comment on above: Performed By: #### L 500.3400, L500.4100 #### [facility] Laboratory [address] [place], [place], [address] Urea nitrogen [Mass/Vol] 28 mg/dL High 4-19 [facility] Comment on above: Performed By: #### L 500.3400, L500.4100 #### [facility] Laboratory [address] [place], [address] Glomerular filtration rate ( GFR) estimation/1.73 sq m using serum, plasma, or whole bOrdered By: Kayleigh Singleton on 01-08-2025 GFR/1.73 sq M.predicted among non-blacks MDRD (S/P/Bld) [Vol rate/Area] 60 mL/min/{1.73_m2} >60 [facility] Comment on above: mL/min/1.73m2 CKD-EP I Creatinine Equation (2020) Internal Medicine Office Vis itomadison 01-08-2025 Internal Medicine Office Visit [facility] [address] [place], [place] [address] OFFICE VISIT Date of Service: 01/08/25 MR#: [id number] Acct: [id number] Name: GIOVANNI JOHNSON Rep #: [id number] : 1975 Provider: Dr. 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 Required: No Accompanied by: Self Is patient in pain?: No Allergies doxycycline Allergy (Unknown, Verified 01/08/25 13:26) Hives colchicine Adverse Reaction (Severe, Verified 01/08/25 13:26) Emesis Medications ???Medication ???Instructions ???Recorded ???Confirmed ???Type albuterol sulfate 90 mcg/actuation 2 inh inhalation Q4-6H PRN 09/1701/08/25 Rx breath activated powder inhaler shortness of breath or wheezing #1 ea blood sugar diagnostic (FreeStyle #100 ea 12/02/23 01/08/25 Rx Lite Strips) blood-glucose meter (FreeStyle #1 ea 12/02/23 01/08/25 Rx Lite Meter kit) lancets 28 gauge (FreeStyle #200 ea 12/02/23 01/08/25 Rx Lancets) diltiazem HCl 300 mg capsule,24 300 mg PO QPM #90 caps 04/14/24 Rx hr,extended release allopurinol 300 mg tablet 300 mg PO DAILY #90 tabs 07/27/24 01/08/25 Rx gabapentin 300 mg capsule 600 mg (2 x 300 mg) PO QHS 3 08/1001/08/25 Rx months #180 caps metformin 500 mg tablet,extended 1,000 mg (2 x 500 mg) PO BID 3 01/08/25 Rx release 24 hr months #360 tabs pramipexole 0.5 mg tablet 1 mg (2 x 0.5 mg) PO QHS #60 tabs 10/05/24 01/08/25 Rx hydrochlorothiazide 25 mg tablet 25 mg PO QPM #90 tabs 10/16/24 Rx metoprolol succinate 25 mg 25 mg PO QHS #90 tabs 10/26/24 Rx tablet,extended release 24 hr omeprazole 40 mg capsule,delayed 40 mg PO DAILY #90 caps 11/30/24 0 01/08/25 Rx release lisinopril 40 mg tablet 40 mg PO QDAY #90 tabs 12/03/24 Rx Have you fallen in the past year?: No [facility] Medical History (Updated 01/08/25 @ 16:[address] Kayleigh Singleton MD) Leg cramps Screening, iron deficiency anemia Obesity (BMI 30-39.9) Chest congestion Cough Rib pain on left side Partial tear of common extensor tendon of right elbow Fatty liver BiPAP (biphasic positive airway pressure) dependence De Quervain's tenosynovitis, right Osteoarthritis of carpometacarpal joint of right thumb Pain of right thumb Type 2 diabetes mellitus Elevated liver enzymes Hypersomnolence Right lateral epicondylitis Strain of right biceps Cardiology follow-up encounter History of echocardiogram Wears contact lenses Loose, teeth Prediabetes Restless legs Back pain Gastric reflux History of stress test Health care maintenance Colon cancer screening COVID-19 Mixed hyperlipidemia Essential hypertension Obesity Gout Arrhythmia Tachycardia Surgical History Hx of elbow surgery Hx of colonoscopy History of hernia repair History of sinus surgery Family History Mother Hypertension Grandfather Heart disease Myocardial infarction, Onset Age: 62 Grandmother Hypertension Heart disease Father Liver failure Social History Smoking Status: Never smoker alcohol intake: current alcohol intake frequency: holidays/special occasions only substance use type: does not use caffeine: Yes Type: coffee Number of servings: 2 and tea Number of servings: 2 what type of physical activity do you participate in: walking frequency: 1-2 times per week HPI HPI Chief Complaint: 3 M FU Details: GIOVANNI JOHNSON, is a 49 M who presents to the office today for follow-up of his chronic medical conditions. Also has some concerns. Lately, he states that he has been having lower extremity cramps. Typically at night. Occasionally wakes him up from sleep. When he drinks a lot of water, does not have these episodes. States that he has to drink so much water for this to not occur. History of diabetes mellitus type 2, A1c today is at 6.4 down from 6.9. An attempt was made at [facility] however this was not covered by his insurance and so he was switched to Victoza but he states that he never filled this as it was not available at the pharmacy. Has been more active due to his new job. Currently on metformin which he reports compliance with. History of hypertension, blood pressure today at 132/78 mmHg (more content not included)... Normal [facility] Laboratory - Chemistry and C hemistry - challengeOrdered By: Kayleigh Singleton on 01-08-2025 AST [Catalytic activity/Vol] 58 U/L High <38 [facility] Laboratory - Hematology and Cell countsOrdered By: Kayleigh Singleton on 01-08-2025 HbA1c (Bld) [Mass fraction] 6.4 % High 4.2-6.3 [facility] Magnesiumon 01-08-2025 Magnesium [Mass/Vol] 1.8 mg/dL Normal 1.5-2.2 [facility] Comment on above: Performed By: #### L 500.3400, L500.4100 #### [facility] Laboratory [address] [place], [address] Magnesium measurement (mass/ volume)Ordered By: Kayleigh Singleton on 01-08-2025 Magnesium (Unsp spec) [Mass/Vol] 1.8 mg/dL 1.5-2.2 [facility] Potassium measurement (mass/ volume)Ordered By: Kayleigh Singleton on 01-08-2025 Potassium (Unsp spec) [Mass/Vol] 4.2 mmol/L 3.3-5.1 [facility] Serum creatinine measurement (mass/volume)Ordered By: Kayleigh Singleton on 01-08-2025 Creatinine [Mass/Vol] 1.44 mg/dL High 0.70-1.20 [facility] Serum globulin measurementOr dered By: Kayleigh Singleton on 01-08-2025 Globulin (S) [Mass/Vol] 3.2 g/dL 2.2-4.[address] [facility] Serum glucose measurement (m ass/volume)Ordered By: Kayleigh Singleton on 01-08-2025 Glucose [Mass/Vol] 115 mg/dL High 70-99 [facility] Serum or plasma alanine kapadia otransferase (ALT) measurementOrdered By: Kayleigh Singleton on 01-08-2025 ALT [Catalytic activity/Vol] 108 U/L High <47 [facility] Serum or plasma albumin wayne urement (mass/volume)Ordered By: Kayleigh Singleton on 01-08-2025 Albumin [Mass/Vol] 4.6 g/dL 3.5-5.0 [facility] Serum or plasma albumin/glob ulin mass ratioOrdered By: Kayleigh Singleton on 01-08-2025 Albumin/Globulin [Mass ratio] 1.4 {ratio} 0.9-2.4 [facility] Serum or plasma alkaline sydni sphatase measurementOrdered By: Kayleigh Singleton on 01-08-2025 ALP [Catalytic activity/Vol] 86 U/L 40-129 [facility] Serum or plasma calcium wayne urement (mass/volume)Ordered By: Kayleigh Singleton on 01-08-2025 Calcium [Mass/Vol] 9.9 mg/dL 7.6-11.0 [facility] Serum or plasma urea nitroge n measurement (mass/volume)Ordered By: Kayleigh Singleton on 01-08-2025 Urea nitrogen [Mass/Vol] 28 mg/dL High 4-19 [facility] Sodium levelOrdered By: Arnaldo Singleton on 01-08-2025 Sodium [Moles/Vol] 136 mmol/L 133-145 [facility] Total proteinOrdered By: Johny Singleton on 01-08-2025 Protein [Mass/Vol] 7.8 g/dL 5.9-8.4 [facility] 37on 01-05-2025 37 - Please try decreasing your night pramipexole from a whole tab to a half tab (from 0.5 mg to 0.25 mg). Continue taking the half tablet in the morning and in the afternoon. - Continue taking your lyrica as you have been. - I'm sending for a chinstrap to your company, to use along with the nasal pillows. Let me know once you've received the chinstrap, because I'd like to get a nocturnal pulse oximetry reading on this set-up. Normal [facility] Office Visiton 01-05-2025 Follow-up visit [id number] Claudio Johnson 1975 M Date Provider Department Center 01/05/2025 [id number] ROCHA [facility] None No family history on file Level of Service:41369 [place] OFFICE/OUTPATIENT ESTABLISHED MOD MDM 30 MIN Reason for Visit and Comments: Follow-up [140913] - 6 week follow up appt, new mask is not working well, however, pressures are working very well. Normal [facility] Progress Noteon 01-05-2025 Progress Note [facility] SLEEP MEDICINE FOLLOW UP OFFICE VISIT-SLEEP Date of last visit: 11/23/24 Plan at that time: - Reviewed compliance data: good overall usage. Will try again to send for hybrid mask. As pt also feels he may benefit from higher pressure and weight gain since last study, sending Rx to increase pressure to 17/12 cmH2O. - will check additional labs for RLS. Continue pramipexole at current dose. If labs normal, consider lyrica. - F/u approximately 1 month. Interval History: Only one episode of RLS since he wrote me a couple weeks ago. But very mild, and in the middle of the day. 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 Got new hybrid mask, but hates it. Tube disconnects too easily as well. Still with dry mouth. Going to go back to nasal pillows mask soon. Does like higher pressure setting though. Very busy with work. No difference from Vitamin D supplementation. Denies any side effects from lyrica at this time. Taking Lyrica 25 mg AM and 75 mg HS. Also still taking pramipexole 0.25 AM, 0.25 mg PM, and 0.5 mg HS Therapy: Bipap 17/12 cmh2O DME: [employer] Mask: nasal pillows Current sleep meds: Pramipexole 0.25 mg @ 10 AM, 0.25 mg @ 2 PM, and 0.5 mg @ 8 pm Lyrica 25 mg AM and 75 mg HS Magnesium 400 mg @ HS Sleep-Wake Schedule Bedtime: 11 P.M. Final wake time: 7 A.M. he does wake up refreshed. Sleep Latency: instantly Awakenings after sleep onset: 1x, because of unknown reasons, and sometimes has difficulty falling asleep Naps: none Estimated total sleep time: 6 hours (Verified unchanged from last visit) Sleep Metrics: [place] Sleepiness Scale: 11 (9 last visit) Past Treatments: Ropinirole Pramipexole Gabapentin Sleep Studies: 2014 study - doesn't know results Split-night PSG (01/18/23): Weight 294 lbs. AHI 124.4; SpO2 min 80%; PLM 0; PLM-a 0. CPAP 9 or Bipap 15/10 cmH2O recommended. Compliance Download: Past Medical History No past medical history on file. Past Surgical History No past surgical history on file. Allergies Allergies Allergen Reactions Colchicine Nausea And Vomiting and Other Doxycycline Hives Medications Current Outpatient Medications Medication Instructions Albuterol Sulfate 108 (90 Base) MCG/ACT aerosol powder Inhale. allopurinol (ZYLOPRIM) 300 mg, Daily aspirin 81 mg, Daily Blood Glucose Monitoring Suppl (ReliOn True Met Air Gluc Meter) w/Device kit USE DIRECTED TO CHECK BLOOD GLUCOSE DAILY. cyanocobalamin (VITAMIN B-12) 1,000 mcg, Daily Diclofenac Sodium (Voltaren) 1 % gel As needed dilTIAZem CD (CARDIZEM CD) 300 mg, Every evening ergocalciferol (VITAMIN D2) 1.25 mg, Oral, Weekly, Take 1 capsule by mouth weekly, for 12 weeks. hydroCHLOROthiazide (HYDRODIURIL) 25 mg, Nightly Ibuprofen capsule Take by mouth. lisinopril 40 mg, Daily Magnesium 400 mg, Oral, Nightly meloxicam (MOBIC) 15 mg, Daily metFORMIN XR (GLUCOPHAGE-XR) 500 mg, 2 times daily metoprolol succinate XL (TOPROL-XL) 25 mg, Nightly omeprazole (PriLOSEC) [address] capsule TAKE 1 CAPSULE BY MOUTH ONCE DAILY 30 MINUTES BEFORE BREAKFAST pramipexole (Mirapex) 0.5 MG tablet TAKE 1/2 TABLET IN THE MORNING, 1/2 TABLET IN THE AFTERNOON, AND 1 TABLET 2-3 HOURS BEFORE BEDTIME. pregabalin (Lyrica) 25 MG capsule Take 1 capsule daily in the afternoon pregabalin (Lyrica) 75 MG capsule Take 1 capsule 1-2 hours before bed. ReliOn True Metrix Test Strips test strip USE TO CHECK BLOOD GLUCOSE DAILY TRUEplus Lancets 33G misc USE TO CHECK BLOOD GLUCOSE DAILY. Social History Social History Tobacco Use Smoking status: Never Smokeless tobacco: Never Substance Use Topics Alcohol use: Yes Comment: rare occ Family History No family history on file. Review of Systems Psychiatric/Behavioral : Positive for sleep disturbance. All other systems reviewed and are negative. (Verified unchanged from last visit) Physical Exam Vitals: 05/27/25 1443 BP: 137/79 Pulse: 92 SpO2: 94% Weight: 300 lb (136 kg) Height: 6' 3 (1.905 m) Body mass index is 37.5 kg/m?. General appearance: Well appearing. No acute distress. AAOX3 Head: Normocephalic, without obvious abnormality, atraumatic Eyes: Normal sclera and conjunctiva Skin: Skin color normal. No rashes or lesions Psych: Euthymic Mood Labs/additional studies: Impression: Diagnosis Plan 1. RLS (restless legs syndrome) 2. PO (obstructive sleep apnea) 3. Vitamin D deficiency 49 y/o M with BMI > 30, HTN, DM. Presented with chronic RLS, as well as very severe PO. Had period during transition from pramipexole to requip had extreme worsening of RLS. Currently using higher than recommended max dose mirapex, but does note good symptom relieft. Also with very severe PO, compliant with Bipap 17/12 cmh2O with benefit. Recommendations: - Reviewed compliance data: good overall usage. Continue at current pressure setting. Pt is going back to nasal pillows mask. (more content not included)... Normal [facility] 36on 12-01-2024 36 Spoke to Anya, was able to order mask in [place] through [email or web address]. Normal [facility] 36 Left Vm with Anya BELCHER, to see how to order a mask through [place], no option to choose a mask. Patient needs a hybrid mask. Normal [address] 11-30-2024 36 Ordered on 11/23/[address] 11-27-2024 36 Order submitted via [place] through [employer] for the pressure change. They do not have masks available to order on the online system, will look into that next week and ask rep from [email or web address] to add that ordering option for our office. [facility] 36 MD Hannah Mcgill, YONY Please send order for increase to 17/12 cmH2O and new hybrid mask. [facility] 25-hydroxyvitamin D3 [Mass/V ol]on 11-24-2024 25-hydroxyvitamin D [Mass/Vol] 26 ng/mL Low 30 - 100 ng/mL [facility] Comment on above: Vitamin D Status 25- [place] Vitamin D: Deficiency: <20 ng/mL Insufficiency: 20 - 29 ng/mL Optimal: > or = 30 ng/mL For 25-OH Vitamin D testing on patients on D2-supplementation and patients for whom quantitation of D2 and D3 fractions is required, the QuestAssureD(TM) 25-OH VIT D, (D2,D3), LC/MS/MS is recommended: order code 98728 (patients >2yrs). See Note 1 Note 1 For additional information, please refer to http://education.[employer]/faq/BRL505 (This link is being provided for informational/ educational purposes only.) Interpretation and review of laboratory results Abnormal [facility] Folateon 11-24-2024 Folate [Mass/Vol] 15.3 ng/mL [facility] Comment on above: Reference Range Low: <3.4 Borderline: 3.4-5.4 Normal: >5.4 Magnesiumon 11-24-2024 Magnesium [Mass/Vol] 1.8 mg/dL 1.5 - 2 .5 mg/dL [facility] No Panel Informationon 11-24 [facility] TSHon 11-24-2024 TSH Qn 1.63 m[IU]/L [facility] Vitamin B12on 11-24-2024 Cobalamin (Vitamin B12) [Mass/Vol] 422 pg/mL 200 - 1100 pg/mL [facility] 37on 11-23-2024 37 - maddison Normal [facility] Office Visiton 11-23-2024 Follow-up visit [id number] Claudio Johnson 1975 M Date Provider Department Center 11/23/2024 62922-IDODEOZOLTAN ROCHA [facility] SL None No family history on file Level of Service:53532 [place] OFFICE/OUTPATIENT ESTABLISHED MOD MDM 30 MIN Reason for Visit and Comments: Follow-up [775103] - Medication change Normal [facility] Progress Noteon 11-23-2024 Progress Note [facility] SLEEP MEDICINE FOLLOW UP OFFICE VISIT-SLEEP Date of last visit: 09/24/24 Plan at that time: - reviewed labs from PCP's office. Would additionally obtain B12, folate, Mg, Vit D, TSH. - Discussed augmentation with patient, as he has now had to resort to daytime dosing of pramipexole. Reviewed most recent AASM guidelines. Will try to titrate up gabapentin (first-line agent), then start backing down on pramipexole. Reviewed side effects to monitor for. Pt will increase from 300 mg to 600 mg for now. Then will try to continue up to 1200 mg. Will need to also check BMP. Once titrated up on gabapentin, would try to decrease pramipexole. - Reviewed sleep study results and compliance download in detail with patient. Independently interpreted outside sleep study. Still had mild PO and hypoxia at current Bipap setting. Will send Rx to increase bipap to 16/11 cmH2O, as he has also gained approximately 5-6 lbs since study. Given some dry mouth, will try to order hybrid mask for patient. At next visit, would look to obtain nocturnal pulse on PAP therapy. - F/u approximately 2 months. Interval History: Didn't feel any benefit from gabapentin. Had one bad episode of RLS last week. Wonders about effect of new job. Now on his feet most of the day. Also with leg cramps. Knows he isn't quite hydrating enough. Off gabapentin for past week. Does feel that things are going better on PAP therapy with higher pressure. Breathing better. Feels like it might benefit from slightly higher pressure though. Never got a new mask. Still occasional dry mouth. Therapy: Bipap 16/11 cmh2O DME: [employer] Mask: nasal pillows Current sleep meds: Pramipexole 0.25 mg @ 10 AM, 0.25 mg @ 2 PM, and 0.5 mg @ 8 pm Magnesium 400 mg @ HS Sleep-Wake Schedule Bedtime: 11 P.M. Final wake time: 7 A.M. he does wake up refreshed. Sleep Latency: instantly Awakenings after sleep onset: 1x, because of unknown reasons, and sometimes has difficulty falling asleep Naps: none Estimated total sleep time: 6 hours (Verified unchanged from last visit) Sleep Metrics: [place] Sleepiness Scale: 9 (8 last visit) Past Treatments: Ropinirole Pramipexole Gabapentin Sleep Studies: 2014 study - doesn't know results Split-night PSG (01/18/23): Weight 294 lbs. AHI 124.4; SpO2 min 80%; PLM 0; PLM-a 0. CPAP 9 or Bipap 15/10 cmH2O recommended. Compliance Download: Past Medical History No past medical history on file. Past Surgical History No past surgical history on file. Allergies Allergies Allergen Reactions Colchicine Nausea And Vomiting and Other Doxycycline Hives Medications Current Outpatient Medications Medication Instructions Albuterol Sulfate 108 (90 Base) MCG/ACT aerosol powder Inhale. allopurinol (ZYLOPRIM) 300 mg, Daily aspirin 81 mg, Daily Blood Glucose Monitoring Suppl (ReliOn True Met Air Gluc Meter) w/Device kit USE DIRECTED TO CHECK BLOOD GLUCOSE DAILY. cyanocobalamin (VITAMIN B-12) 1,000 mcg, Daily Diclofenac Sodium (Voltaren) 1 % gel As needed dilTIAZem CD (CARDIZEM CD) 300 mg, Every evening hydroCHLOROthiazide (HYDRODIURIL) 25 mg, Nightly Ibuprofen capsule Take by mouth. lisinopril 40 mg, Daily Magnesium 400 mg, Oral, Nightly meloxicam (MOBIC) 15 mg, Daily metFORMIN XR (GLUCOPHAGE-XR) 500 mg, 2 times daily metoprolol succinate XL (TOPROL-XL) 25 mg, Nightly omeprazole (PriLOSEC) [address] capsule TAKE 1 CAPSULE BY MOUTH ONCE DAILY 30 MINUTES BEFORE BREAKFAST pramipexole (Mirapex) 0.5 MG tablet TAKE 1/2 TABLET IN THE MORNING, 1/2 TABLET IN THE AFTERNOON, AND 1 TABLET 2-3 HOURS BEFORE BEDTIME. ReliOn True Metrix Test Strips test strip USE TO CHECK BLOOD GLUCOSE DAILY TRUEplus Lancets 33G misc USE TO CHECK BLOOD GLUCOSE DAILY. Social History Social History Tobacco Use Smoking status: Never Smokeless tobacco: Never Substance Use Topics Alcohol use: Yes Comment: rare occ Family History No family history on file. Review of Systems Psychiatric/Behavioral : Positive for sleep disturbance. All other systems reviewed and are negative. (Verified unchanged from last visit) Physical Exam Vitals: 11/23/24 1031 BP: 125/76 BP Location: Left arm Patient Position: Sitting BP Cuff Size: Large adult Pulse: 81 Resp: 16 SpO2: 97% Weight: (!) 304 lb 12.8 oz (138 kg) Height: 6' 3 (1.905 m) Body mass index is 38.1 kg/m?. General appearance: Well appearing. No acute distress. AAOX3 Head: Normocephalic, without obvious abnormality, atraumatic Eyes: Normal sclera and conjunctiva Skin: Skin color normal. No rashes or lesions Psych: Euthymic Mood, full affect Labs/additional studies: Reviewed outside labs from [facility] Impression: Diagnosis Plan 1. RLS (restless legs syndrome) Magnesium Vitamin D Deficiency Screening (Vit D 25) TSH Vitamin B12 Folate Magnesium Vitamin D Deficiency Screening (Vit D 25) TSH Vitamin B12 Folate pram (more content not included)... [facility] 36on 11-09-2024 36 Name of Caller: Claudio wallace Contact Reason for Appointment: Patient called to reschedule his appointment with Dr Rocha on 11/23/24 due to the time. First available afternoon appointment is on 12/21/24. Patient stated that he will keep his appointment on 11/23/24 for now. Added patient to waiting list. Patient asking for a call if an afternoon appointment becomes available. Please be advised. Office Name: Sleep Medicine Medication Refills need, if any: N/A Medication Name: N/A [facility] Urgent Care Visit Reporton 0 10-09-2024 Urgent Care Visit Report [facility] [address], [address] [place] [address] OFFICE VISIT Date of Service: 10/09/24 MR#: [id number] Acct: [id number] Name: GIOVANNI JOHNSON Rep #: [id number] : 1975 Provider: CRISTINA Davila Age/Sex: 49/M Location: [facility] Status: Signed Intake Vital Signs 10/05/24 08:46 Height 6 ft 3 in Weight: 303 lb BMI 37.8 BP 142/78 H Blood Pressure Location Lt brachial Position Sitting Respiration 16 Pulse 78 Pulse Source Monitor Temp 96.4 F L Temp Source Temporal Pulse Oximetry (%) 98 Oxygen Delivery Method room air Intake Visit Reasons: PE NON DOT PHYSICAL/ [employer] Accompanied by: Self Allergies doxycycline Allergy (Unknown, Verified 10/05/24 08:42) Hives colchicine Adverse Reaction (Severe, Verified 10/05/24 08:42) Emesis Medications ???Medication ???Instructions ???Recorded ???Confirmed ???Type albuterol sulfate 90 mcg/actuation 2 inh inhalation Q4-6H PRN 09/1710/09/24 Rx breath activated powder inhaler shortness of breath or wheezing #1 ea metoprolol succinate 25 mg 25 mg PO QHS #30 tabs 10/23/23 Rx tablet,extended release 24 hr blood sugar diagnostic (FreeStyle #100 ea 12/02/23 10/09/24 Rx Lite Strips) blood-glucose meter (FreeStyle #1 ea 12/02/23 10/09/24 Rx Lite Meter kit) lancets 28 gauge (FreeStyle #200 ea 12/02/23 10/09/24 Rx Lancets) diltiazem HCl 300 mg capsule,24 300 mg PO QPM #90 caps 04/14/24 Rx hr,extended release hydrochlorothiazide 25 mg tablet 25 mg PO QPM #90 tabs 04/17/24 Rx omeprazole 40 mg capsule,delayed 40 mg PO DAILY #90 caps 06/08/24 0 10/09/24 Rx release allopurinol 300 mg tablet 300 mg PO DAILY #90 tabs 07/27/24 10/09/24 Rx gabapentin 300 mg capsule 600 mg (2 x 300 mg) PO QHS 3 08/1010/09/24 Rx months #180 caps lisinopril 40 mg tablet 40 mg PO QDAY #90 tabs 09/07/24 Rx metformin 500 mg tablet,extended 1,000 mg (2 x 500 mg) PO BID 3 10/09/24 Rx release 24 hr months #360 tabs pramipexole 0.5 mg tablet 1 mg (2 x 0.5 mg) PO QHS #60 tabs 10/05/24 10/09/24 Rx tirzepatide 2.5 mg/0.5 mL 2.5 mg (0.5 mL) subcut QWEEK #2 mL 10/05/24 10/09/24 Rx subcutaneous pen injector (Lorenzo) Nurse's Note: Patient here for a pre-employment physical. [facility] Medical History Screening, iron deficiency anemia Obesity (BMI 30-39.9) Chest congestion Cough Rib pain on left side Partial tear of common extensor tendon of right elbow Fatty liver BiPAP (biphasic positive airway pressure) dependence De Quervain's tenosynovitis, right Osteoarthritis of carpometacarpal joint of right thumb Pain of right thumb Type 2 diabetes mellitus Elevated liver enzymes Hypersomnolence Right lateral epicondylitis Strain of right biceps Cardiology follow-up encounter History of echocardiogram Wears contact lenses Loose, teeth Prediabetes Restless legs Back pain Gastric reflux History of stress test Health care maintenance Colon cancer screening COVID-19 Mixed hyperlipidemia Essential hypertension Obesity Gout Arrhythmia Tachycardia Surgical History Hx of elbow surgery Hx of colonoscopy History of hernia repair History of sinus surgery Family History Mother Hypertension Grandfather Heart disease Myocardial infarction, Onset Age: 62 Grandmother Hypertension Heart disease Father Liver failure Social History Smoking Status: Never smoker alcohol intake: current alcohol intake frequency: holidays/special occasions only substance use type: does not use caffeine: Yes Type: coffee Number of servings: 2 and tea Number of servings: 2 what type of physical activity do you participate in: walking frequency: 1-2 times per week HPI HPI Details: GIOVANNI JOHNSON, is a 49 M who presents to the office today for preemployment physical. Please see corresponding scanned documents with today's date. Office Procedures Physical Exam Coding PE Coding Pre-employment PE: Yes Coding Level of Care Code No Charge Diagnoses Encounter for pre-employment health screening examination Z02.1 Assessment and Plan Assessment and Plan (1) Encounter for pre-employment health screening examination: Status: Acute 10/09/24 1448 Date Jonathan Edwards Signature: Date (if applicable) CC: Normal [facility] Absolute lymphocyte countOrd ered By: Kayleigh Singleton on 10-05-2024 Lymphocytes Auto (Unsp spec) [#/Vol] 2.07 10*3/uL 0.83-4.51 [facility] Absolute neutrophil countOrd ered By: Kayleigh Singleton on 10-05-2024 Neutrophils (Bld) [#/Vol] 3.3 10*3/uL 2.0-7.7 [facility] Albumin to globulin ratioOrd ered By: Kayleigh Singleton on 10-05-2024 Albumin/Globulin [Mass ratio] 1.0 {ratio} 0.9-2.4 [facility] Automated lymphocyte count a s percentage of total leukocytesOrdered By: Kayleigh Singleton on 10-05-2024 Lymphocytes/100 WBC Auto (Unsp spec) 32.6 % - [facility] Basophil percentageOrdered B y: Kayleigh Singleton on 10-05-2024 Basophils/100 WBC (Bld) 1.4 % High 0-[address] [facility] Bilirubin, totalOrdered By: Kayleigh Singleton on 10-05-2024 Bilirubin [Mass/Vol] 0.50 mg/dL 0.20-1.00 [facility] Comment on above: For patients on eltr ombopag therapy, use of Dimension Dana TBIL is not recommended. Blood urea nitrogen (BUN)/cr eatinine ratioOrdered By: Kayleigh Singleton on 10-05-2024 Urea nitrogen/Creatinine [Mass ratio] 14.7 mg/mg 10-20 [facility] CBC W/Diff, Automatedon 09-13 Absolute Lymph 2.07 X10 3/uL Normal 0.83-4.51 [facility] Comment on above: Performed By: #### L 100.0100, L500.4050, L500.4100 #### [facility] Laboratory [address] [place], [address] Absolute Neut 3.3 X10 3/uL Normal 2.0-7.7 [facility] Comment on above: Performed By: #### L 100.0100, L500.4050, L500.4100 #### [facility] Laboratory [address] [place], [address] Basophils/100 WBC (Bld) 1.4 % High 0-[address] [facility] Comment on above: Performed By: #### L 100.0100, L500.4050, L500.4100 #### [facility] Laboratory [address] [place], [address] Eosinophils/100 WBC (Bld) 2.7 % Normal 0-5 [facility] Comment on above: Performed By: #### L 100.0100, L500.4050, L500.4100 #### [facility] Laboratory [address] [place], [address] Erythrocyte distribution width (RBC) [Ratio] 13.8 % Normal 11.6-14.6 [facility] Comment on above: Performed By: #### L 100.0100, L500.4050, L500.4100 #### [facility] Laboratory [address] [place], [address] Hematocrit (Bld) [Volume fraction] 50.8 % Normal 40-54 [facility] Comment on above: Performed By: #### L 100.0100, L500.4050, L500.4100 #### [facility] [address] [place], [address] Hemoglobin (Bld) [Mass/Vol] 16.3 g/dL Normal 13.0-16.5 [facility] Comment on above: Performed By: #### L 100.0100, L500.4050, L500.4100 #### [facility] [address] [place], [address] IG% 0.500 Normal 0.0-0.9 [facility] Comment on above: Result Comment: IG% - Immature Granulocytes (promyelocytes, myelocytes and metamyelocytes) > 1% indicates that a LEFT SHIFT is Present. Performed By: #### L 100.0100, L500.4050, L500.4100 #### [facility] [address] [place], [address] Lymphocytes/100 WBC (Bld) 32.6 % Normal 19-41 [facility] Comment on above: Performed By: #### L 100.0100, L500.4050, L500.4100 #### [facility] [address] [place], [address] MCH (RBC) [Entitic mass] 28.7 pg Normal 27.0-32.0 [facility] Comment on above: Performed By: #### L 100.0100, L500.4050, L500.4100 #### [facility] [address] [place], [address] MCHC (RBC) [Mass/Vol] 32.1 g/dL Normal 32-36 [facility] Comment on above: Performed By: #### L 100.0100, L500.4050, L500.4100 #### [facility] Laboratory [address] [place], [address] MCV (RBC) [Entitic vol] 89.4 fL Normal 80-94 [facility] Comment on above: Performed By: #### L 100.0100, L500.4050, L500.4100 #### [facility] [address] [place], [address] Monocytes/100 WBC (Bld) 10.4 % High 0-[address] [facility] Comment on above: Performed By: #### L 100.0100, L500.4050, L500.4100 #### [facility] [address] [place], [address] Neutrophils/100 WBC (Bld) 52.4 % Normal 47-70 [facility] Comment on above: Performed By: #### L 100.0100, L500.4050, L500.4100 #### [facility] Laboratory [address] [place], [address] Nucleated RBC (Bld) [#/Vol] 0 10*3/uL Normal 0-5 [facility] Comment on above: Performed By: #### L 100.0100, L500.4050, L500.4100 #### [facility] Laboratory [address] [place], [address] Platelet mean volume (Bld) [Entitic vol] 11.4 fL Normal 6.2-12.0 [facility] Comment on above: Performed By: #### L 100.0100, L500.4050, L500.4100 #### [facility] Laboratory [address] [place], [address] Platelets (Bld) [#/Vol] 259 10*3/uL Normal 150-450 [facility] Comment on above: Performed By: #### L 100.0100, L500.4050, L500.4100 #### [facility] Laboratory [address] [place], [address] RBC (Bld) [#/Vol] 5.68 10*6/uL Normal 4.6-6.2 [facility] Comment on above: Performed By: #### L 100.0100, L500.4050, L500.4100 #### [facility] Laboratory [address] [place], [address] RDW SD 45.2 fl High 35.1-43.9 [facility] Comment on above: Performed By: #### L 100.0100, L500.4050, L500.4100 #### [facility] Laboratory [address] [place], [address] WBC (Bld) [#/Vol] 6.3 10*3/uL Normal 4.4-11.0 [facility] Comment on above: Performed By: #### L 100.0100, L500.4050, L500.4100 #### [facility] Laboratory [address] [place], [address] Carbon dioxide measurementOr dered By: Kayleigh Singleton on 10-05-2024 CO2 [Moles/Vol] 27.0 mmol/L 21.0-32.0 [facility] Chloride measurementOrdered By: Kayleigh Singlteon on 10-05-2024 Chloride [Moles/Vol] 104 mmol/L 98-107 [facility] Comprehensive Metabolic Prof ilon 10-05-2024 Albumin [Mass/Vol] 3.9 g/dL Normal 3.2-5.0 [facility] Comment on above: Performed By: #### L 500.3400, L500.4100 #### [facility] Laboratory [address] [place], [address] Albumin/Globulin [Mass ratio] 1.0 {ratio} Normal 0.9-2.4 [facility] Comment on above: Performed By: #### L 500.3400, L500.4100 #### [facility] Laboratory [address] [place], [address] ALK P 110 U/L Normal 45-117 [facility] Comment on above: Performed By: #### L 500.3400, L500.4100 #### [facility] Laboratory [address] [place], [address] ALT [Catalytic activity/Vol] 150 U/L High 16-61 [facility] Comment on above: Performed By: #### L 500.3400, L500.4100 #### [facility] Laboratory [address] [place] [place], [address] AST [Catalytic activity/Vol] 62 U/L High 15-37 [facility] Comment on above: Performed By: #### L 500.3400, L500.4100 #### [facility] Laboratory [address] [place], [address] Bilirubin [Mass/Vol] 0.50 mg/dL Normal 0.20-1.00 [facility] Comment on above: Result Comment: For patients on eltrombopag therapy, use of Dimension Dana TBIL is not recommended. Performed By: #### L 500.3400, L500.4100 #### [facility] Laboratory [address] [place], [address] BUN/CRE 14.7 RATIO Normal 10-20 [facility] [facility] Comment on above: Performed By: #### L 500.3400, L500.4100 #### [facility] [address] [place], [address] CA,Total 9.4 mg/dL Normal 8.5-10.1 [facility] Comment on above: Performed By: #### L 500.3400, L500.4100 #### [facility] [address] [place], [address] Chloride [Moles/Vol] 104 mmol/L Normal 98-107 [facility] Comment on above: Performed By: #### L 500.3400, L500.4100 #### [facility] [address] [place], [address] CO2 [Moles/Vol] 27.0 mmol/L Normal 21.0-32.0 [facility] Comment on above: Performed By: #### L 500.3400, L500.4100 #### [facility] [address] [place], [address] Creatinine [Mass/Vol] 1.09 mg/dL Normal 0.70-1.30 [facility] Comment on above: Result Comment: The validity of the calculated GFR GFRAA in patients over 70 years has not been determined. Clinical correlation is essential. Performed By: #### L 500.3400, L500.4100 #### [facility] [address] [place], [address] EST GFR - AA 92 mL/min Normal >60 [facility] Comment on above: Result Comment: Afri can Malagasy GFR Calc Performed By: #### L 500.3400, L500.4100 #### [facility] [address] [place], [address] GAP 6 Normal 5-15 [facility] Comment on above: Performed By: #### L 500.3400, L500.4100 #### [facility] [address] [place], [address] GFR/1.73 sq M.predicted among non-blacks MDRD (S/P/Bld) [Vol rate/Area] 76 mL/min/{1.73_m2} Normal >60 [facility] Comment on above: Result Comment: Non- GFR Calc Performed By: #### L 500.3400, L500.4100 #### [facility] [address] [place], [address] Globulin (S) [Mass/Vol] 3.8 g/dL Normal 2.2-4.2 [facility] Comment on above: Performed By: #### L 500.3400, L500.4100 #### [facility] [address] [place], [address] Glucose [Mass/Vol] 130 mg/dL High 74-106 [facility] Comment on above: Result Comment: Fast ing Glucose result greater than or equal to 126 mg/dL suggests DIABETES MELLITUS per A.D.A. criteria. Performed By: #### L 500.3400, L500.4100 #### [facility] [address] [place], [address] Potassium [Moles/Vol] 4.3 mmol/L Normal 3.5-5.1 [facility] Comment on above: Performed By: #### L 500.3400, L500.4100 #### [facility] [address] [place], [address] Sodium [Moles/Vol] 137 mmol/L Normal 136-145 [facility] Comment on above: Performed By: #### L 500.3400, L500.4100 #### [facility] [address] [place], [address] T PROT 7.7 g/dL Normal 6.4-8.2 [facility] Comment on above: Performed By: #### L 500.3400, L500.4100 #### [facility] [address] [place], [address] Urea nitrogen [Mass/Vol] 16 mg/dL Normal 7-18 [facility] Comment on above: Performed By: #### L 500.3400, L500.4100 #### [facility] [address] [place], [address] Eosinophil percentageOrdered By: Kayleigh Singleton on 10-05-2024 Eosinophils/100 WBC (Bld) 2.7 % 0-5 [facility] Erythrocyte distribution wid th ratioOrdered By: Kayleigh Singleton on 10-05-2024 Erythrocyte distribution width (RBC) [Ratio] 13.8 % 11.6-14.6 [facility] Erythrocyte distribution wid th standard deviationOrdered By: Kayleigh Singleton on 10-05-2024 Erythrocyte distribution width (RBC) [Entitic vol] 45.2 fL High 35.1-43.9 [facility] Erythrocyte distribution width (RBC) [Ratio] 45.2 fl High 35.1-43.9 [facility] Estimated glomerular filtrat ion rate (GFR) AmericanOrdered By: Kayleigh Singleton on 10-05-2024 Estimated GFR (MDRD) Amer 92 mL/min >60 [facility] Comment on above: GFR Calc Glomerular filtration rate ( GFR) estimationOrdered By: Kayleigh Singleton on 10-05-2024 Estimated GFR (MDRD) Non-Af Amer 76 mL/min >60 [facility] Comment on above: Non- GFR Calc GFR/1.73 sq M.predicted among non-blacks MDRD (S/P/Bld) [Vol rate/Area] 76 mL/min/{1.73_m2} >60 [facility] Comment on above: Non- GFR Calc Glucose measurementOrdered B y: Kayleigh Singleton on 10-05-2024 Glucose [Mass/Vol] 130 mg/dL High 74-106 [facility] Comment on above: Fasting Glucose resu lt greater than or equal to 126 mg/dL suggests DIABETES MELLITUS per A.D.A. criteria. Hematocrit Auto (Bld) [Volum e fraction]Ordered By: Kayleigh Singleton on 10-05-2024 Hematocrit (Bld) [Volume fraction] 50.8 % 40-54 [facility] Hemoglobin measurementOrdere d By: Kayleigh Singleton on 10-05-2024 Hemoglobin (Bld) [Mass/Vol] 16.3 g/dL 13.0-16.5 [facility] High density lipoprotein (HD L) measurementOrdered By: Kayleigh Singleton on 10-05-2024 Cholesterol in HDL [Mass/Vol] 43 mg/dL >40 [facility] Comment on above: The drugs N-Acetylcy steine and Metamizole may falsely depress this assay. Reference Range HDL <40 mg/dL Low HDL Cholesterol HDL >or= 60 mg/dL High HDL Cholesterol Immature granulocytes/100 WB C Auto (Bld)Ordered By: Kayleigh Singleton on 10-05-2024 Immature granulocytes/100 WBC (Bld) 0.500 % 0.0-0.9 [facility] Comment on above: IG% - Immature Granu locytes (promyelocytes, myelocytes and metamyelocytes) > 1% indicates that a LEFT SHIFT is Present. Internal Medicine Office Vis gilson 10-05-2024 Internal Medicine Office Visit [facility] [address] [place] [address] [address] [place] [address] OFFICE VISIT Date of Service: 10/05/24 MR#: [id number] Acct: [id number] Name: GIOVANNI JOHNSON Rep #: [id number] : 1975 Provider: Dr. 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 Required: No Accompanied by: Self Is patient in pain?: No Allergies doxycycline Allergy (Unknown, Verified 10/05/24 08:42) Hives colchicine Adverse Reaction (Severe, Verified 10/05/24 08:42) Emesis Medications ???Medication ???Instructions ???Recorded ???Confirmed ???Type albuterol sulfate 90 mcg/actuation 2 inh inhalation Q4-6H PRN 09/1710/05/24 Rx breath activated powder inhaler shortness of breath or wheezing #1 ea metoprolol succinate 25 mg 25 mg PO QHS #30 tabs 10/23/23 Rx tablet,extended release 24 hr blood sugar diagnostic (FreeStyle #100 ea 12/02/23 10/05/24 Rx Lite Strips) blood-glucose meter (FreeStyle #1 ea 12/02/23 10/05/24 Rx Lite Meter kit) lancets 28 gauge (FreeStyle #200 ea 12/02/23 10/05/24 Rx Lancets) diltiazem HCl 300 mg capsule,24 300 mg PO QPM #90 caps 04/14/24 Rx hr,extended release hydrochlorothiazide 25 mg tablet 25 mg PO QPM #90 tabs 04/17/24 Rx omeprazole 40 mg capsule,delayed 40 mg PO DAILY #90 caps 06/08/24 0 10/05/24 Rx release allopurinol 300 mg tablet 300 mg PO DAILY #90 tabs 07/27/24 10/05/24 Rx gabapentin 300 mg capsule 600 mg (2 x 300 mg) PO QHS 3 08/1010/05/24 Rx months #180 caps lisinopril 40 mg tablet 40 mg PO QDAY #90 tabs 09/07/24 Rx metformin 500 mg tablet,extended 1,000 mg (2 x 500 mg) PO BID 3 10/05/24 Rx release 24 hr months #360 tabs pramipexole 0.5 mg tablet 1 mg (2 x 0.5 mg) PO QHS #60 tabs 10/05/24 10/05/24 Rx tirzepatide 2.5 mg/0.5 mL 2.5 mg (0.5 mL) subcut QWEEK #2 mL 10/05/24 10/05/24 Rx subcutaneous pen injector (Mounjaro) Have you fallen in the past year?: No PFSH Medical History Screening, iron deficiency anemia Obesity (BMI 30-39.9) Chest congestion Cough Rib pain on left side Partial tear of common extensor tendon of right elbow Fatty liver BiPAP (biphasic positive airway pressure) dependence De Quervain's tenosynovitis, right Osteoarthritis of carpometacarpal joint of right thumb Pain of right thumb Type 2 diabetes mellitus Elevated liver enzymes Hypersomnolence Right lateral epicondylitis Strain of right biceps Cardiology follow-up encounter History of echocardiogram Wears contact lenses Loose, teeth Prediabetes Restless legs Back pain Gastric reflux History of stress test Health care maintenance Colon cancer screening COVID-19 Mixed hyperlipidemia Essential hypertension Obesity Gout Arrhythmia Tachycardia Surgical History Hx of elbow surgery Hx of colonoscopy History of hernia repair History of sinus surgery Family History Mother Hypertension Grandfather Heart disease Myocardial infarction, Onset Age: 62 Grandmother Hypertension Heart disease Father Liver failure Social History Smoking Status: Never smoker alcohol intake: current alcohol intake frequency: holidays/special occasions only substance use type: does not use caffeine: Yes Type: coffee Number of servings: 2 and tea Number of servings: 2 what type of physical activity do you participate in: walking frequency: 1-2 times per week HPI HPI Chief Complaint: 3 M FU Details: GIOVANNI ELIZABETH, is a 49 M who presents to the office today for follow-up of his chronic conditions. No acute concerns at this time. Since his last visit, established with sleep medicine due to significant restless leg. His restless leg however has been stable following some changes to his pramipexole. Plan per sleep medicine is to optimize gabapentin and cut back on pramipexole/reevaluate symptoms. No new concerns in this regard. History of diabetes mellitus type 2 and A1c today is at 6.9 up from 6.7. Has been a progressive increase. He admits that he has been less active but reports compliance with his me (more content not included)... Normal [facility] - Chemistry and C hemistry - challengeOrdered By: Kayleigh Singletno on 10-05-2024 AST [Catalytic activity/Vol] 62 U/L High 15-37 [facility] - Hematology and Cell countsOrdered By: Kayleigh Singleton on 10-05-2024 HbA1c (Bld) [Mass fraction] 6.9 % High 4.2-6.3 [facility] Lipid Profileon 10-05-2024 Cholesterol [Mass/Vol] 189 mg/dL Normal 200 [facility] Comment on above: Result Comment: <200 mg/dL Desirable 200-240 mg/dL Borderline >240 mg/dL High Risk Performed By: #### L 500.3400, L500.4100 #### [facility] [address] [place], [address] Cholesterol in HDL [Mass/Vol] 43 mg/dL Normal [facility] Comment on above: Result Comment: The drugs N-Acetylcysteine and Metamizole may falsely depress this assay. Reference Range HDL <40 mg/dL Low HDL Cholesterol HDL >or= 60 mg/dL High HDL Cholesterol Performed By: #### L 500.3400, L500.4100 #### [facility] [address] [place], [address] Cholesterol in LDL [Mass/Vol] 100 mg/dL Normal 0-130 [facility] Comment on above: Performed By: #### L 500.3400, L500.4100 #### [facility] [address] [place], [address] Cholesterol in VLDL [Mass/Vol] 46 mg/dL High 5-40 [facility] Comment on above: Performed By: #### L 500.3400, L500.4100 #### [facility] [address] [place], [address] Triglyceride [Mass/Vol] 229 mg/dL High [facility] Comment on above: Result Comment: The drugs N-Acetylcysteine and Metamizole may falsely depress this assay. Serum Triglycerides Reference Interval Normal <150 mg/dL Borderline high 150 - 199 mg/dL High 200 - 499 mg/dL Very High > or = 500 mg/dL Performed By: #### L 500.3400, L500.4100 #### [facility] [address] [place], [address] Low density lipoprotein (LDL ) cholesterol measurementOrdered By: Kayleigh Singleton on 10-05-2024 Cholesterol in LDL [Mass/Vol] 100 mg/dL 0-130 [facility] Lymphocytes Auto (Unsp spec) [#/Vol]Ordered By: Kayleigh Singleton on 10-05-2024 Lymphocytes (Bld) [#/Vol] 2.07 10*3/uL 0.83-4.51 [facility] Lymphocytes/100 WBC Auto (Un sp spec)Ordered By: Kayleigh Singleton on 10-05-2024 Lymphocytes/100 WBC (Bld) 32.6 % 19-41 [facility] MCV (mean corpuscular volume ) determinationOrdered By: Kayleigh Singleton on 10-05-2024 MCV (RBC) [Entitic vol] 89.4 fL 80-[address] [facility] Mean corpuscular hemoglobin (MCH) determinationOrdered By: Kayleigh Singleton on 10-05-2024 MCH (RBC) [Entitic mass] 28.7 pg 27.0-32.0 [facility] Mean corpuscular hemoglobin concentration (MCHC) determinationOrdered By: Kayleigh Singleton on 10-05-2024 MCHC (RBC) [Mass/Vol] 32.1 g/dL 32-36 [facility] Mean platelet volume determi nationOrdered By: Kayleigh Singleton on 10-05-2024 Platelet mean volume (Bld) [Entitic vol] 11.4 fL 6.2-12.0 [facility] Monocyte percentageOrdered B y: Kayleigh Singleton on 10-05-2024 Monocytes/100 WBC (Bld) 10.4 % High 0-[address] [facility] Neutrophil percentageOrdered By: Kayleigh Singleton on 10-05-2024 Neutrophils/100 WBC (Bld) 52.4 % 47-70 [facility] Nucleated red blood cell per centageOrdered By: Kayleigh Singleton on 10-05-2024 Nucleated RBC/100 WBC (Bld) [Ratio] 0 % 0-5 [facility] Platelet countOrdered By: Mckenzie Singleton on 10-05-2024 Platelets (Bld) [#/Vol] 259 10*3/uL 150-450 [facility] Potassium measurementOrdered By: Kayleigh Singleton on 10-05-2024 Potassium [Moles/Vol] 4.3 mmol/L 3.5-5.1 [facility] RBC Auto (Bld) [#/Vol]Ordere d By: Kayleigh Singleton on 10-05-2024 RBC (Bld) [#/Vol] 5.68 10*6/uL 4.6-6.2 [facility] Serum anion gap measurementO rdered By: Kayleigh Singleton on 10-05-2024 Anion gap [Moles/Vol] 6 mmol/L 5-15 [facility] Serum globulin measurementOr dered By: Kayleigh Singleton on 10-05-2024 Globulin (S) [Mass/Vol] 3.8 g/dL 2.2-4.2 [facility] Serum or plasma alanine kapadia otransferase (ALT) measurementOrdered By: Kayleigh Singleton on 10-05-2024 ALT [Catalytic activity/Vol] 150 U/L High 16-61 [facility] Serum or plasma albumin wayne urement (mass/volume)Ordered By: Kayleigh Singleton on 10-05-2024 Albumin [Mass/Vol] 3.9 g/dL 3.2-5.0 [facility] Serum or plasma alkaline sydni sphatase measurementOrdered By: Kayleigh Singleton on 10-05-2024 ALP [Catalytic activity/Vol] 110 U/L 45-117 [facility] Serum or plasma calcium wayne urement (mass/volume)Ordered By: Kayleigh Singleton on 10-05-2024 Calcium [Mass/Vol] 9.4 mg/dL 8.5-10.1 [facility] Serum or plasma cholesterol measurement (mass/volume)Ordered By: Kayleigh Singleton on 10-05-2024 Cholesterol [Mass/Vol] 189 mg/dL <200 [facility] Comment on above: <200 mg/dL Desirable 200-240 mg/dL Borderline >240 mg/dL High Risk Serum or plasma creatinine m easurement (mass/volume)Ordered By: Kayleigh Singleton on 10-05-2024 Creatinine [Mass/Vol] 1.09 mg/dL 0.70-1.30 [facility] Comment on above: The validity of the calculated GFR & GFRAA in patients over 70 years has not been determined. Clinical correlation is essential. Serum or plasma urea nitroge n measurement (mass/volume)Ordered By: Kayleigh Singleton on 10-05-2024 Urea nitrogen [Mass/Vol] 16 mg/dL 7-18 [facility] Sodium levelOrdered By: Arnaldo Singleton on 10-05-2024 Sodium [Moles/Vol] 137 mmol/L 136-145 [facility] Total proteinOrdered By: Johny Singleton on 10-05-2024 Protein [Mass/Vol] 7.7 g/dL 6.4-8.2 [facility] Triglycerides measurementOrd ered By: Kayleigh Singleton on 10-05-2024 Triglyceride [Mass/Vol] 229 mg/dL High <[address] [facility] Comment on above: The drugs N-Acetylcy steine and Metamizole may falsely depress this assay.Serum Triglycerides Reference Interval Normal <150 mg/dL Borderline high 150 - 199 mg/dL High 200 - 499 mg/dL Very High > or = 500 mg/dL Very low density lipoprotein (VLDL) cholesterol measurementOrdered By: Kayleigh Singleton on 10-05-2024 Very low density lipoprotein (VLDL) cholesterol measurement 46 mg/dL High 5-40 [facility] VLDL Cholesterol 46 mg/dL High 5-40 [facility] White blood cell (WBC) count Ordered By: Kayleigh Singleton on 10-05-2024 WBC (Bld) [#/Vol] 6.3 10*3/uL 4.4-11.0 [facility] 36on 09-25-2024 36 Faxed order demo insurance info ov note to Dasri for new hybrid mask & pressure change 16/11 cmH2O on his bipap Normal [facility] 37on 09-24-2024 37 - Keep your pramipexole at the current dose. - Increase your gabapentin to 600 mg at 8 pm. After 2 weeks, try increasing it to 900 mg at 8 pm. After 2 weeks of that, try going up to 1200 mg at 8 pm. - I'm sending an order to try a different style of mask and change your pressure on the bipap to [employer]. - I'll check in with you via [employer] in a couple weeks, and then we'll follow-up in the office in a few months. Normal [facility] Office Visiton 09-24-2024 Follow-up visit [id number] Claudio Johnson madison Carney 1975 M Date Provider Department Center 09/24/2024 [id number] ROCHA [facility] None No family history on file Level of Service:68461 [place] OFFICE/OUTPATIENT NEW HIGH MDM 60 MINUTES Reason for Visit and Comments: New Patient [542] - Restless Legs Normal [facility] Progress Noteon 09-24-2024 Progress Note [facility] Sleep Medicine NEW PATIENT OFFICE VISIT-SLEEP MEDICINE 09/24/2024 REFERRING PHYSICIAN: Kayleigh Singleton MD REASON FOR REFERRAL: Chief Complaint Patient presents with New Patient Restless Legs HPI: Giovanni Johnson is a 49 y.o. male. Went through period of time where he got little to no sleep over 8 days. Occurred during transition from pramipexole to requip, but it didn't help him at all. Then went back to pramipexole, switched to dosing AM and HS. Feels now his RLS is doing much better. Has severe restless legs going on for 14-15 years. Will get discomfort in legs that requires movement or standing to very briefly alleviate it. Worst at night. Would happen in seated position. Never diagnosed with anemia. Typically only happens in one leg at a time. Has had it in arms as well (during period off pramipexole). Initially started using Calcium or Magnesium supplement. Tried OTC homeopathic supplements. Taking pramipexole for 10 years. Was taking 1.5 mg at one time. Was thinking about going off gabapentin altogether? Never been above 600 mg gabapentin. Sleepiness much better on Bipap. Had sleep study in 2022 following weight gain and witnessed apneas. Has nasal pillows mask. DME [employer]. Occasional air hunger. Tried full face mask, didn't like as much. Current sleep meds: Pramipexole 0.25 mg @ 10 AM, 0.25 mg @ 2 PM, and 0.5 mg @ 8 pm Gabapentin 300 mg @ 8 pm (used to be 600 mg) Magnesium 400 mg @ HS Sleep-Wake Schedule Bedtime: 11 P.M. Final wake time: 7 A.M. he does wake up refreshed. Sleep Latency: instantly Awakenings after sleep onset: 1x, because of unknown reasons, and sometimes has difficulty falling asleep Naps: none Estimated total sleep time: 6 hours During Sleep: Habitual sleep position: side and supine Snoring: not while using PAP Witnessed apneas: not while using PAP Wakes up gasping for air: rare Wakes up with heart pounding/racing: no Parasomnias: States he had frequent dream enactment in the past, but not happening since starting Bipap. Didn't always have recall of the dreams. During Wake: Occupation: unemployed He does not have daytime sleepiness. He does not have fatigue. He has not fallen asleep while driving Caffeine: caffeinated soft drinks 1-2 jl / week Recent weight change: gained 5-6 lbs in past 2 years Sleep Metrics: [place] Sleepiness Scale: Total score: 8 Past Treatments: Ropinirole Pramipexole Gabapentin Sleep Studies: 2014 study - doesn't know results Split-night PSG (01/18/23): Weight 294 lbs. AHI 124.4; SpO2 min 80%; PLM 0; PLM-a 0. CPAP 9 or Bipap 15/10 cmH2O recommended. Relevant LABS/Studies: Ferritin 112 on 03/30/24 No past medical history on file. No past surgical history on file. Allergies Allergen Reactions Colchicine Nausea And Vomiting and Other Doxycycline Hives Current Outpatient Medications Medication Instructions Albuterol Sulfate 108 (90 Base) MCG/ACT aerosol powder Inhale. allopurinol (ZYLOPRIM) 300 mg, Daily aspirin 81 mg, Oral, Daily Blood Glucose Monitoring Suppl (ReliOn True Met Air Gluc Meter) w/Device kit USE DIRECTED TO CHECK BLOOD GLUCOSE DAILY. cyanocobalamin (VITAMIN B-12) 1,000 mcg, Oral, Daily Diclofenac Sodium (Voltaren) 1 % gel As needed dilTIAZem CD (CARDIZEM CD) 300 mg, Every evening gabapentin (Neurontin) 300 MG capsule TAKE 2 CAPSULES BY MOUTH ONCE DAILY AT BEDTIME hydroCHLOROthiazide (HYDRODIURIL) 25 mg, Nightly Ibuprofen capsule Take by mouth. lisinopril 40 mg, Daily magnesium hydroxide (Milk of Magnesia) 400 MG/5ML suspension Oral, Nightly meloxicam (MOBIC) 15 mg, Daily metFORMIN XR (GLUCOPHAGE-XR) 500 mg, 2 times daily metoprolol succinate XL (TOPROL-XL) 25 mg, Nightly omeprazole (PriLOSEC) [address] capsule TAKE 1 CAPSULE BY MOUTH ONCE DAILY 30 MINUTES BEFORE BREAKFAST pramipexole (Mirapex) 0.5 MG tablet TAKE 1/2 TABLET IN THE MORNING, 1/2 TABLET IN THE AFTERNOON, AND 1 TABLET 2-3 HOURS BEFORE BEDTIME. ReliOn True Metrix Test Strips test strip USE TO CHECK BLOOD GLUCOSE DAILY TRUEplus Lancets 33G misc USE TO CHECK BLOOD GLUCOSE DAILY. Social History Tobacco Use Smoking status: Never Smokeless tobacco: Never Substance Use Topics Alcohol use: Yes Comment: rare occ No family history on file. Family Sleep History: RLS -- brother Review of Systems Psychiatric/Behavioral : Positive for sleep disturbance. All other systems reviewed and are negative. Physical Exam: Vitals: 09/24/24 1112 BP: 132/82 BP Location: Left arm Patient Position: Sitting BP Cuff Size: Large adult Pulse: 79 Resp: 16 SpO2: 96% Weight: (!) 301 lb 12.8 oz (137 kg) Height: 6' 3 (1.905 m) Body mass index is 37.72 kg/m?. Neck Circumference (in): 21 in. General appearance: NAD. Mental Status/Psych: A&O x 3. Euthymic mood, full affect. Skin: No rashes or lesions. Skin palpation normal. Head: Normocephalic, without obvious abnormality, at (more content not included)... Normal [facility] 36on 08-13-2024 36 Patient is scheduled with us now, thank you! Normal [facility] Internal Medicine Office Vis itomadison 07-06-2024 Internal Medicine Office Visit [facility] [address] [place] [address] [place] [address] OFFICE VISIT Date of Service: 07/06/24 MR#: [id number] Acct: [id number] Name: GIOVANNI JOHNSON Rep #: [id number] : 1975 Provider: Dr. Kayleigh reagan MD Age/Sex: 49/M Location[place] [facility] Status: Signed Intake Vital Signs 03/30/24 08:50 07/06/24 09:05 Height 6 ft 3 in 6 ft 3 in Weight: 299 lb BMI 37.3 BP 120/84 H Blood Pressure Location Lt brachial Position Sitting Respiration 16 Pulse 84 Pulse Source Monitor Temp 97.6 F L Temp Source Temporal Pulse Oximetry (%) 95 Oxygen Delivery Method room air Intake Visit Reasons: 3 M FU Chief Complaint: 3 M FU Leather Finisher Required: No Accompanied by: Self Is patient in pain?: No Allergies doxycycline Allergy (Unknown, Verified 07/06/24 09:00) Hives colchicine Adverse Reaction (Severe, Verified 07/06/24 09:00) Emesis Medications ???Medication ???Instructions ???Recorded ???Confirmed ???Type albuterol sulfate 90 mcg/actuation 2 inh inhalation Q4-6H PRN 09/17/23 07/06/24 Rx breath activated powder inhaler shortness of breath or wheezing #1 ea metoprolol succinate 25 mg 25 mg PO QHS #30 tabs 10/23/23 07/06/24 Rx tablet,extended release 24 hr blood sugar diagnostic (FreeStyle #100 ea 12/02/23 07/06/24 Rx Lite Strips) blood-glucose meter (FreeStyle #1 ea 12/02/23 07/06/24 Rx Lite Meter kit) lancets 28 gauge (FreeStyle #200 ea 12/02/23 07/06/24 Rx Lancets) metformin 500 mg tablet,extended 500 mg PO BID #180 tabs 01/27/24 07/06/24 Rx release 24 hr lisinopril 40 mg tablet 40 mg PO QDAY #90 tabs 03/16/24 07/06/24 Rx diltiazem HCl 300 mg capsule,24 300 mg PO QPM #90 caps 04/14/24 07/06/24 Rx hr,extended release hydrochlorothiazide 25 mg tablet 25 mg PO QPM #90 tabs 04/17/24 07/06/24 Rx allopurinol 300 mg tablet 300 mg PO DAILY #90 tabs 05/04/24 07/06/24 Rx omeprazole 40 mg capsule,delayed 40 mg PO DAILY #90 caps 06/08/24 07/06/24 Rx release gabapentin 300 mg capsule 600 mg (2 x 300 mg) PO QHS 3 07/06/24 07/06/24 Rx months #180 caps pramipexole 1 mg tablet 1 mg PO QHS #90 tabs 07/06/24 07/06/24 Rx PFSH Medical History Screening, iron deficiency anemia Obesity (BMI 30-39.9) Chest congestion Cough Rib pain on left side Partial tear of common extensor tendon of right elbow Fatty liver BiPAP (biphasic positive airway pressure) dependence De Quervain's tenosynovitis, right Osteoarthritis of carpometacarpal joint of right thumb Pain of right thumb Type 2 diabetes mellitus Elevated liver enzymes Hypersomnolence Right lateral epicondylitis Strain of right biceps Cardiology follow-up encounter History of echocardiogram Wears contact lenses Loose, teeth Prediabetes Restless legs Back pain Gastric reflux History of stress test Health care maintenance Colon cancer screening COVID-19 Mixed hyperlipidemia Essential hypertension Obesity Gout Arrhythmia Tachycardia Surgical History Hx of elbow surgery Hx of colonoscopy History of hernia repair History of sinus surgery Family History Mother Hypertension Grandfather Heart disease Myocardial infarction, Onset Age: 62 Grandmother Hypertension Heart disease Father Liver failure Social History Smoking Status: Never smoker alcohol intake: current alcohol intake frequency: holidays/special occasions only substance use type: does not use caffeine: Yes Type: coffee Number of servings: 2 and tea Number of servings: 2 what type of physical activity do you participate in: walking frequency: 1-2 times per week HPI HPI Chief Complaint: 3 M FU Details: GIOVANNI JOHNSON, is a 49 M who presents to the office today for follow-up of his chronic medical conditions. Also has some concerns. He reports on average 2 days a week where his restless leg is not well-controlled. Currently on pramipexole and gabapentin. Has also been taking magnesium which he initially found helpful but not as much on those days. History of sleep apnea, he reports consistent use of his Pap. A1c today is at 6.7 up from last check. He admits that he has not been so compliant with his diet but plans to make changes. Taking metformin as prescribed. No concerns for hypoglycemia. Other chronic medical conditions are stable, blood pressure today at 120/84 mmHg. Also history of tachycardia and his heart rate is stable at 84. He denies chest pain, palpitation or shortness of breath. ROS Const Constitutional: No body ache, chills, excessive sweating, fatigue, fever(s), frequent falls, headache(s), snorin (more content not included)... Normal [facility] Laboratory - Hematology and Cell countson 07-06-2024 HbA1c (Bld) [Mass fraction] 6.7 % High 4.2-6.3 [facility] CBC W/Diff, Automatedon 03-12 Absolute Lymph 1.98 X10 3/uL Normal 0.83-4.51 [facility] Comment on above: Performed By: #### L 100.0100, L503.6063, L503.6150, L503.7450 #### [facility] Laboratory [address] [place], [address] Absolute Neut 4.1 X10 3/uL Normal 2.0-7.7 [facility] Comment on above: Performed By: #### L 100.0100, L503.6075, L503.6150, L503.6550 #### [facility] [address] [place], [address] Basophils/100 WBC (Bld) 1.0 % Normal 0-[address] [facility] Comment on above: Performed By: #### L 100.0100, L503.6075, L503.6150, L503.6550 #### [facility] [address] [place], [address] Eosinophils/100 WBC (Bld) 2.9 % Normal 0-5 [facility] Comment on above: Performed By: #### L 100.0100, L503.6075, L503.6150, L503.6550 #### [facility] [address] [place], [address] Erythrocyte distribution width (RBC) [Ratio] 13.8 % Normal 11.6-14.6 [facility] Comment on above: Performed By: #### L 100.0100, L503.6075, L503.6150, L503.6550 #### [facility] [address] [place], [address] Hematocrit (Bld) [Volume fraction] 44.9 % Normal 40-54 [facility] Comment on above: Performed By: #### L 100.0100, L503.6075, L503.6150, L503.6550 #### [facility] [address] [place], [address] Hemoglobin (Bld) [Mass/Vol] 14.9 g/dL Normal 13.0-16.5 [facility] Comment on above: Performed By: #### L 100.0100, L503.6075, L503.6150, L503.6550 #### [facility] [address] [place], [address] IG% 0.400 Normal 0.0-0.9 [facility] Comment on above: Result Comment: IG% - Immature Granulocytes (promyelocytes, myelocytes and metamyelocytes) > 1% indicates that a LEFT SHIFT is Present. Performed By: #### L 100.0100, L503.6075, L503.6150, L503.6550 #### [facility] [address] [place], [address] Lymphocytes/100 WBC (Bld) 28.2 % Normal 19-41 [facility] Comment on above: Performed By: #### L 100.0100, L503.6075, L503.6150, L503.6550 #### [facility] [address] [place], [address] MCH (RBC) [Entitic mass] 29.7 pg Normal 27.0-32.0 [facility] Comment on above: Performed By: #### L 100.0100, L503.6075, L503.6150, L503.6550 #### [facility] [address] [place], [address] MCHC (RBC) [Mass/Vol] 33.2 g/dL Normal 32-36 [facility] Comment on above: Performed By: #### L 100.0100, L503.6075, L503.6150, L503.6550 #### [facility] [address] [place], [address] MCV (RBC) [Entitic vol] 89.6 fL Normal 80-[address] [facility] Comment on above: Performed By: #### L 100.0100, L503.6075, L503.6150, L503.6550 #### [facility] [address] [place], [address] Monocytes/100 WBC (Bld) 9.6 % Normal 0-[address] [facility] Comment on above: Performed By: #### L 100.0100, L503.6075, L503.6150, L503.6550 #### [facility] [address] [place], [address] Neutrophils/100 WBC (Bld) 57.9 % Normal 47-70 [facility] Comment on above: Performed By: #### L 100.0100, L503.6075, L503.6150, L503.6550 #### [facility] [address] [place], [address] Nucleated RBC (Bld) [#/Vol] 0 10*3/uL Normal 0-5 [facility] Comment on above: Performed By: #### L 100.0100, L503.6075, L503.6150, L503.6550 #### [facility] [address] [place], [address] Platelet mean volume (Bld) [Entitic vol] 11.8 fL Normal 6.2-12.0 [facility] Comment on above: Performed By: #### L 100.0100, L503.6075, L503.6150, L503.6550 #### [facility] [address] [place], [address] Platelets (Bld) [#/Vol] 258 10*3/uL Normal 150-450 [facility] Comment on above: Performed By: #### L 100.0100, L503.6075, L503.6150, L503.6550 #### [facility] [address] [place], [address] RBC (Bld) [#/Vol] 5.01 10*6/uL Normal 4.6-6.2 [facility] Comment on above: Performed By: #### L 100.0100, L503.6075, L503.6150, L503.6550 #### [facility] [address] [place], [address] RDW SD 45.1 fl High 35.1-43.9 [facility] Comment on above: Performed By: #### L 100.0100, L503.6075, L503.6150, L503.6550 #### [facility] [address] [place], [address] WBC (Bld) [#/Vol] 7.0 10*3/uL Normal 4.4-11.0 [facility] Comment on above: Performed By: #### L 100.0100, L503.6075, L503.6150, L503.6550 #### [facility] [address] [place], [address] Ferritinon 03-30-2024 Ferritin [Mass/Vol] 112 ng/mL Normal 26-388 [facility] Comment on above: Performed By: #### L 100.0100, L503.6075, L503.6150, L503.6550 #### [facility] [address] [place], [address] Internal Medicine Office Vis iton 03-30-2024 Internal Medicine Office Visit [facility] [address] [place], [place] [address] OFFICE VISIT Date of Service: 03/30/24 MR#: [id number] Acct: [id number] Name: GIOVANNI JOHNSON Rep #: [id number] : 1975 Provider: Dr. Kayleigh reagan MD Age/Sex: 49/M Location[place] [facility] Status: Signed Intake Vital Signs 12/23/23 14:22 02/12/24 09:35 03/30/24 08:50 Height 6 ft 3 in 6 ft 3 in 6 ft 3 in Weight: 302 lb BMI 37.7 BP 138/82 H Blood Pressure Location Lt brachial Position Sitting Respiration 18 Pulse 94 Pulse Source Monitor Temp 97.8 F Temp Source Temporal Pulse Oximetry (%) 96 Oxygen Delivery Method room air Intake Visit Reasons: 3 M FU Chief Complaint: 3 M FU Is patient in pain?: No Allergies doxycycline Allergy (Unknown, Verified 03/30/24 08:51) Hives colchicine Adverse Reaction (Severe, Verified 03/30/24 08:51) Emesis Medications ???Medication ???Instructions ???Recorded ???Confirmed ???Type diltiazem HCl 300 mg capsule,24 300 mg PO QPM #90 caps 03/14/23 03/30/24 Rx hr,extended release albuterol sulfate 90 mcg/actuation 2 inh inhalation Q4-6H PRN 09/17/23 03/30/24 Rx breath activated powder inhaler shortness of breath or wheezing #1 ea metoprolol succinate 25 mg 25 mg PO QHS #30 tabs 10/23/23 03/30/24 Rx tablet,extended release 24 hr hydrochlorothiazide 25 mg tablet 25 mg PO QPM #90 tabs 10/28/23 03/30/24 Rx blood sugar diagnostic (FreeStyle #100 ea 12/02/23 03/30/24 Rx Lite Strips) blood-glucose meter (FreeStyle #1 ea 12/02/23 03/30/24 Rx Lite Meter kit) lancets 28 gauge (FreeStyle #200 ea 12/02/23 03/30/24 Rx Lancets) metformin 500 mg tablet,extended 500 mg PO BID #180 tabs 01/27/24 03/30/24 Rx release 24 hr pramipexole 1.5 mg tablet 1.5 mg PO QHS #90 tabs 02/03/24 03/30/24 Rx allopurinol 300 mg tablet 300 mg PO DAILY 02/12/24 03/30/24 History gabapentin 400 mg capsule 400 mg PO QHS #90 caps 03/02/24 03/30/24 Rx omeprazole 40 mg capsule,delayed 40 mg PO DAILY #90 caps 03/11/24 03/30/24 Rx release lisinopril 40 mg tablet 40 mg PO QDAY #90 tabs 03/16/24 03/30/24 Rx PFSH Medical History (Updated 03/30/24 @ 09:[address] Kayleigh Snigleton MD) Screening, iron deficiency anemia Obesity (BMI 30-39.9) Chest congestion Cough Rib pain on left side Partial tear of common extensor tendon of right elbow Fatty liver BiPAP (biphasic positive airway pressure) dependence De Quervain's tenosynovitis, right Osteoarthritis of carpometacarpal joint of right thumb Pain of right thumb Type 2 diabetes mellitus Elevated liver enzymes Hypersomnolence Right lateral epicondylitis Strain of right biceps Cardiology follow-up encounter History of echocardiogram Wears contact lenses Loose, teeth Prediabetes Restless legs Back pain Gastric reflux History of stress test Health care maintenance Colon cancer screening COVID-19 Mixed hyperlipidemia Essential hypertension Obesity Gout Arrhythmia Tachycardia Surgical History Hx of elbow surgery Hx of colonoscopy History of hernia repair History of sinus surgery Family History Mother Hypertension Grandfather Heart disease Myocardial infarction, Onset Age: 62 Grandmother Hypertension Heart disease Father Liver failure Social History Smoking Status: Never smoker alcohol intake: current alcohol intake frequency: holidays/special occasions only substance use type: does not use caffeine: Yes Type: coffee Number of servings: 2 and tea Number of servings: 2 what type of physical activity do you participate in: walking frequency: 1-2 times per week HPI HPI Chief Complaint: 3 M FU Details: GIOVANNI JOHNSON, is a 49 M who presents to the office today for follow up of his chronic medical conditions. Also has some concerns. History of restless leg currently on pramipexole and gabapentin. He states that recently, he has had more episodes of restless leg typically starting at about 11 AM and lasting several hours. Has been taking his medication as prescribed. States that he uses his CPAP consistently and also tries to stay well-hydrated. Other chronic medical conditions are largely stable. A1c today is at 6.3 down from 6.6. States that he occasionally forgets to take his second dose of metformin. No concern for hypoglycemia. ROS Const Constitutional: No body ache, chills, excessive sweating, fatigue, fever(s), frequent falls, headache(s), snoring, weight change, sleep problems, abnormal sleep pattern or change in appetite Eyes Eyes: No blurry vision, change in vision, bulging eyes, floaters, visual disturbances, eye pain or Light sensitiv (more content not included)... Normal [facility] Ironon 03-30-2024 Iron [Mass/Vol] 74 ug/dL Normal 65-175 [facility] Comment on above: Performed By: #### L 100.0100, L503.6075, L503.6150, L503.6550 #### [facility] [address] [place], [address] Iron Binding Capacity,Totalo n 03-30-2024 TIBC 371 ug/dL Normal 250-450 [facility] Comment on above: Performed By: #### L 100.0100, L503.6075, L503.6150, L503.6550 #### [facility] [address] [place], [address] Basic Metabolic Profile (BMP )on 03-27-2024 BUN/CRE 16.4 RATIO Normal 10-20 [facility] Comment on above: Performed By: #### L 500.2500, L501.9985 #### [facility] [address] [place], [address] CA,Total 9.5 mg/dL Normal 8.5-10.1 [facility] Comment on above: Performed By: #### L 500.2500, L501.9985 #### [facility] [address] [place], [address] Chloride [Moles/Vol] 108 mmol/L High 98-107 [facility] Comment on above: Performed By: #### L 500.2500, L501.9985 #### [facility] [address] [place], [address] CO2 [Moles/Vol] 24.0 mmol/L Normal 21.0-32.0 [facility] Comment on above: Performed By: #### L 500.2500, L501.9985 #### [facility] [address] [place], [address] Creatinine [Mass/Vol] 1.10 mg/dL Normal 0.70-1.30 [facility] Comment on above: Result Comment: The validity of the calculated GFR GFRAA in patients over 70 years has not been determined. Clinical correlation is essential. Performed By: #### L 500.2500, L501.9985 #### [facility] [address] [place], [address] EST GFR - AA 92 mL/min Normal >60 [facility] Comment on above: Result Comment: Afri can Malagasy GFR Calc Performed By: #### L 500.2500, L5.9985 #### [facility] [address] [place], [address] GAP 7 Normal 5-15 [facility] Comment on above: Performed By: #### L 500.2500, L5.9985 #### [facility] [address] [place], [address] GFR/1.73 sq M.predicted among non-blacks MDRD (S/P/Bld) [Vol rate/Area] 76 mL/min/{1.73_m2} Normal >60 [facility] Comment on above: Result Comment: Non- GFR Calc Performed By: #### L 500.2500, L501.9985 #### [facility] [address] [place], [address] Glucose [Mass/Vol] 112 mg/dL High 74-106 [facility] Comment on above: Result Comment: Fast ing Glucose result from 100 to 125 mg/dL suggests IMPAIRED HOMEOSTASIS per A.D.A. criteria. Performed By: #### L 500.2500, L501.9985 #### [facility] [address] [place], [address] Potassium [Moles/Vol] 3.7 mmol/L Normal 3.5-5.1 [facility] Comment on above: Performed By: #### L 500.2500, L501.9985 #### [facility] [address] [place], [address] Sodium [Moles/Vol] 139 mmol/L Normal 136-145 [facility] Comment on above: Performed By: #### L 500.2500, L501.9985 #### [facility] [address] [place], [address] Urea nitrogen [Mass/Vol] 18 mg/dL Normal 7-18 [facility] Comment on above: Performed By: #### L 500.2500, L501.9985 #### [facility] [address] [place], [address] Hemoglobin A1con 03-27-2024 HbA1c (Bld) [Mass fraction] 6.3 % High 3.8-5.6 [facility] Comment on above: Result Comment: Norm al < 5.7 % Prediabetic 5.7 - 6.4 % Diabetic >or= 6.5 % Please note range changes. Performed By: #### L 500.2500, L501.9985 #### [facility] [address] [place], [address] Orthopedic Visit Reporton Orthopedic Visit Report [facility] [address] [place] [address] [address] [place] [address] OFFICE VISIT Date of Service: 02/24/24 MR#: [id number] Acct: [id number] Name: GIOVANNI JOHNSON Rep #: [id number] : 1975 Provider: Dr. Seymour ross MD Age/Sex: 48/M Location[place] [facility] Status: Signed Intake Vital Signs 12/23/23 14:22 02/12/24 09:35 Height 6 ft 3 in 6 ft 3 in Intake Visit Reasons: LEFT ELBOW Chief Complaint: Right Elbow Accompanied by: Self Allergies doxycycline Allergy (Unknown, Verified 02/24/24 08:00) Hives colchicine Adverse Reaction (Severe, Verified 02/24/24 08:00) Emesis Medications ???Medication ???Instructions ???Recorded ???Confirmed ???Type diltiazem HCl 300 mg capsule,24 300 mg PO QPM #90 caps 03/14/23 02/24/24 Rx hr,extended release gabapentin 400 mg capsule 400 mg PO QHS #90 caps 03/14/23 02/24/24 Rx omeprazole 40 mg capsule,delayed 40 mg PO DAILY #90 caps 03/14/23 02/24/24 Rx release lisinopril 40 mg tablet 40 mg PO QDAY #90 tabs 03/19/23 02/24/24 Rx albuterol sulfate 90 mcg/actuation 2 inh inhalation Q4-6H PRN 09/17/23 02/24/24 Rx breath activated powder inhaler shortness of breath or wheezing #1 ea metoprolol succinate 25 mg 25 mg PO QHS #30 tabs 10/23/23 02/24/24 Rx tablet,extended release 24 hr hydrochlorothiazide 25 mg tablet 25 mg PO QPM #90 tabs 10/28/23 02/24/24 Rx blood sugar diagnostic (FreeStyle #100 ea 12/02/23 02/24/24 Rx Lite Strips) blood-glucose meter (FreeStyle #1 ea 12/02/23 02/24/24 Rx Lite Meter kit) lancets 28 gauge (FreeStyle #200 ea 12/02/23 02/24/24 Rx Lancets) metformin 500 mg tablet,extended 500 mg PO BID #180 tabs 01/27/24 02/24/24 Rx release 24 hr pramipexole 1.5 mg tablet 1.5 mg PO QHS #90 tabs 02/03/24 02/24/24 Rx allopurinol 300 mg tablet 300 mg PO DAILY 02/12/24 02/24/24 History PFSH Medical History Obesity (BMI 30-39.9) Chest congestion Cough Rib pain on left side Partial tear of common extensor tendon of right elbow Fatty liver BiPAP (biphasic positive airway pressure) dependence De Quervain's tenosynovitis, right Osteoarthritis of carpometacarpal joint of right thumb Pain of right thumb Type 2 diabetes mellitus Elevated liver enzymes Hypersomnolence Right lateral epicondylitis Strain of right biceps Cardiology follow-up encounter History of echocardiogram Wears contact lenses Loose, teeth Prediabetes Restless legs Back pain Gastric reflux History of stress test Health care maintenance Colon cancer screening COVID-19 Mixed hyperlipidemia Essential hypertension Obesity Gout Arrhythmia Tachycardia Surgical History Hx of elbow surgery Hx of colonoscopy History of hernia repair History of sinus surgery Family History Mother Hypertension Grandfather Heart disease Myocardial infarction, Onset Age: 62 Grandmother Hypertension Heart disease Father Liver failure Social History Smoking Status: Never smoker alcohol intake: current alcohol intake frequency: holidays/special occasions only substance use type: does not use caffeine: Yes Type: coffee Number of servings: 2 and tea Number of servings: 2 what type of physical activity do you participate in: walking frequency: 1-2 times per week HPI LEFT ELBOW Details: This documentation accurately reflects the service provided and the decisions made by me, Dr. Seymour Erickson MD 02/24/24 0751. Part of today???s visit was documented by [ ], acting as scribe. GIOVANNI JOHNSON is a 48 year old M here today for 9 months FU right elbow revision repair common extensor tendon, irrigation and debridement, injection platelet rich plasma complicated by superficial wound infection. Patient is doing well. some mild soreness. back to heavy lifting. looking for new line of work. Ortho Exam General General: Yes no acute distress Neurologic: Yes alert and Yes oriented x3 Psychologic: Yes reasonable and appropriate Right Wrist/Hand Skin/Wound: Yes CDI Motor: EPL: 5, FDP-2: 5, 1st Dorsal Interosseous: 5 and APB: 5 Right Elbow Skin/Wound: Yes CDI, Yes healed, No eccymosis, No erythema and No Swelling ROM: Yes Flexion 0-140, Supination 0-90 and Pronation 0-80 Motor: Elbow Extension: 5, Elbow Flexion: 5, EPL: 5, FDP-2: 5 and 1st Dorsal Interosseous: 5 Coding Level of Care Code Off vis,est,level 3 Diagnoses Partial tear of common extensor tendon of right elbow S56.511A Assessment and Plan Assessment and Plan (1) Partial tear of common extensor tendon of right elbow: Status: Acute Plan: 48 year old M here today for 9 months (more content not included)... Normal [facility] Cardiology Visit Reporton Cardiology Visit Report [facility] [address] [place], [place] [address] OFFICE VISIT Date of Service: 02/12/24 MR#: [id number] Acct: [id number] Name: GIOVANNI JOHNSON Rep #: [id number] : 1975 Provider: DARRYN holland Age/Sex: 48/M Location: [facility] [place] Status: Signed [facility] HPI History of Present Illness Details: This is a 48-year-old white male who presents today for outpatient cardiovascular follow up visit. He was previously seen for concerns of tachycardia. As you recall, he states he was evaluated by cardiology while living in [place] potentially 10 years ago for similar type concerns. He does not recall exactly what type of noninvasive diagnostic studies he went through. However he states he was placed on diltiazem therapy at that time. After moving to this area he notes for period of time he was without his diltiazem. He states after establishing medical care locally he was placed back on diltiazem. From a cardiac standpoint, the patient is doing well. He denies any palpitations, chest pain, pressure or heaviness. He denies SOB, Orthopnea, and PND. He does wear Bipap nightly. He does not have bleeding issues; no blood in urine, stool or nosebleeds. He denies any decrease in energy level, myalgias, or claudication. He does not have edema, or sudden weight gain. He does acknowledge occasional lightheadedness with quick positional changes. He denies dizziness, syncopal or near syncopal episodes, and headaches. 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 Is patient in pain?: No Allergies doxycycline Allergy (Unknown, Verified 02/12/24 09:41) Hives colchicine Adverse Reaction (Severe, Verified 02/12/24 09:41) Emesis Medications ???Medication ???Instructions ???Recorded ???Confirmed ???Type diltiazem HCl 300 mg capsule,24 300 mg PO QPM #90 caps 03/14/23 02/12/24 Rx hr,extended release gabapentin 400 mg capsule 400 mg PO QHS #90 caps 03/14/23 02/12/24 Rx omeprazole 40 mg capsule,delayed 40 mg PO DAILY #90 caps 03/14/23 02/12/24 Rx release lisinopril 40 mg tablet 40 mg PO QDAY #90 tabs 03/19/23 02/12/24 Rx albuterol sulfate 90 mcg/actuation 2 inh inhalation Q4-6H PRN 09/17/23 02/12/24 Rx breath activated powder inhaler shortness of breath or wheezing #1 ea metoprolol succinate 25 mg 25 mg PO QHS #30 tabs 10/23/23 02/12/24 Rx tablet,extended release 24 hr hydrochlorothiazide 25 mg tablet 25 mg PO QPM #90 tabs 10/28/23 02/12/24 Rx blood sugar diagnostic (FreeStyle #100 ea 12/02/23 02/12/24 Rx Lite Strips) blood-glucose meter (FreeStyle #1 ea 12/02/23 02/12/24 Rx Lite Meter kit) lancets 28 gauge (FreeStyle #200 ea 12/02/23 02/12/24 Rx Lancets) metformin 500 mg tablet,extended 500 mg PO BID #180 tabs 01/27/24 02/12/24 Rx release 24 hr pramipexole 1.5 mg tablet 1.5 mg PO QHS #90 tabs 02/03/24 02/12/24 Rx allopurinol 300 mg tablet 300 mg PO DAILY 02/12/24 02/12/24 History PFSH Medical History Obesity (BMI 30-39.9) Chest congestion Cough Rib pain on left side Partial tear of common extensor tendon of right elbow Fatty liver BiPAP (biphasic positive airway pressure) dependence De Quervain's tenosynovitis, right Osteoarthritis of carpometacarpal joint of right thumb Pain of right thumb Type 2 diabetes mellitus Elevated liver enzymes Hypersomnolence Right lateral epicondylitis Strain of right biceps Cardiology follow-up encounter History of echocardiogram Wears contact lenses Loose, teeth Prediabetes Restless legs Back pain Gastric reflux History of stress test Health care maintenance Colon cancer screening COVID-19 Mixed hyperlipidemia Essential hypertension Obesity Gout Arrhythmia Tachycardia Surgical History Hx of elbow surgery Hx of colonoscopy History of hernia repair History of sinus surgery Family History Mother Hypertension Grandfather Heart disease Myocardial infarction, Onset Age: 62 Grandmother Hypertension Heart disease Father Liver failure Social History Smoking Status: Never smoker alcohol intake: current alcohol intake frequency: holidays/special occasions only substance use type: does not use caffeine: Yes Type: coffee Number of servings: 2 and tea Number of servings: 2 what type of physic (more content not included)... Normal [facility] Lipid Profileon 02-12-2024 Cholesterol [Mass/Vol] 180 mg/dL Normal 200 [facility] Comment on above: Result Comment: <200 mg/dL Desirable 200-240 mg/dL Borderline >240 mg/dL High Risk Performed By: #### L 500.3400, L500.4100 #### [facility] Laboratory [address] [place], [address] Cholesterol in HDL [Mass/Vol] 35 mg/dL Low [facility] Comment on above: Result Comment: The drugs N-Acetylcysteine and Metamizole may falsely depress this assay. Reference Range HDL <40 mg/dL Low HDL Cholesterol HDL >or= 60 mg/dL High HDL Cholesterol Performed By: #### L 500.3400, L500.4100 #### [facility] [address] [place], [address] Cholesterol in LDL [Mass/Vol] 99 mg/dL Normal 0-130 [facility] Comment on above: Performed By: #### L 500.3400, L500.4100 #### [facility] [address] [place], [address] Cholesterol in VLDL [Mass/Vol] 46 mg/dL High 5-40 [facility] Comment on above: Performed By: #### L 500.3400, L500.4100 #### [facility] [address] [place], [address] Triglyceride [Mass/Vol] 230 mg/dL High [facility] Comment on above: Result Comment: The drugs N-Acetylcysteine and Metamizole may falsely depress this assay. Serum Triglycerides Reference Interval Normal <150 mg/dL Borderline high 150 - 199 mg/dL High 200 - 499 mg/dL Very High > or = 500 mg/dL Performed By: #### L 500.3400, L500.4100 #### [facility] [address] [place], [address] Liver Profileon 02-12-2024 Albumin [Mass/Vol] 3.7 g/dL Normal 3.2-5.0 [facility] Comment on above: Performed By: #### L 500.3400, L500.4100 #### [facility] Laboratory [address] [place], [address] ALK P 91 U/L Normal 45-117 [facility] Comment on above: Performed By: #### L 500.3400, L500.4100 #### [facility] [address] [place], [address] ALT [Catalytic activity/Vol] 155 U/L High 16-61 [facility] Comment on above: Performed By: #### L 500.3400, L500.4100 #### [facility] [address] [place], [address] AST [Catalytic activity/Vol] 71 U/L High 15-37 [facility] Comment on above: Performed By: #### L 500.3400, L500.4100 #### [facility] [address] [place], [address] Bilirubin [Mass/Vol] 0.60 mg/dL Normal 0.20-1.00 [facility] Comment on above: Result Comment: For patients on eltrombopag therapy, use of Dimension Dana TBIL is not recommended. Performed By: #### L 500.3400, L500.4100 #### [facility] [address] [place], [address] Bilirubin.direct [Mass/Vol] 0.17 mg/dL Normal 0.00-0.30 [facility] Comment on above: Performed By: #### L 500.3400, L500.4100 #### [facility] [address] [place], [address] Globulin (S) [Mass/Vol] 3.7 g/dL Normal 2.2-4.2 [facility] Comment on above: Performed By: #### L 500.3400, L500.4100 #### [facility] [address] [place], [address] T PROT 7.4 g/dL Normal 6.4-8.2 [facility] Comment on above: Performed By: #### L 500.3400, L500.4100 #### [facility] Laboratory [address] [place], [address] Absolute lymphocyte countOrd ered By: Kayleigh Singleton on 09-25-2023 Lymphocytes Auto (Unsp spec) [#/Vol] 2.43 10*3/uL 0.83-4.51 [facility] Automated lymphocyte count a s percentage of total leukocytesOrdered By: Kayleigh Singleton on 09-25-2023 Lymphocytes/100 WBC Auto (Unsp spec) 28.7 % 19-41 [facility] Basophil percentageOrdered B y: Kayleigh Singleton on 09-25-2023 Basophils/100 WBC (Bld) 0.9 % 0-[address] [facility] Bilirubin [Mass/Vol] 0.60 mg/dL 0.20-1.00 [facility] Comment on above: For patients on eltr ombopag therapy, use of Dimension Dana TBIL is not recommended. Chloride [Moles/Vol] 106 mmol/L 98-107 [facility] Eosinophils/100 WBC (Bld) 1.4 % 0-5 [facility] Glucose [Mass/Vol] 107 mg/dL 74-106 [facility] Comment on above: Fasting Glucose resu lt from 100 to 125 mg/dL suggests IMPAIRED HOMEOSTASIS per A.D.A. criteria. Hemoglobin (Bld) [Mass/Vol] 15.6 g/dL 13.0-16.5 [facility] Monocytes/100 WBC (Bld) 10.8 % 0-[address] [facility] Neutrophils (Bld) [#/Vol] 4.8 10*3/uL 2.0-7.7 [facility] Neutrophils/100 WBC (Bld) 56.3 % 47-70 [facility] Potassium [Moles/Vol] 4.2 mmol/L 3.5-5.1 [facility] Protein [Mass/Vol] 7.1 g/dL 6.4-8.2 [facility] Sodium [Moles/Vol] 136 mmol/L 136-145 [facility] WBC (Bld) [#/Vol] 8.5 10*3/uL 4.4-11.0 [facility] Determination of erythrocyte mean corpuscular volume (MCV)Ordered By: Kayleigh Singleton on 09-25-2023 MCV (RBC) [Entitic vol] 88.3 fL 80-[address] [facility] Erythrocyte distribution wid th ratioOrdered By: Kayleigh Singleton on 09-25-2023 Erythrocyte distribution width (RBC) [Ratio] 14.0 % 11.6-14.6 [facility] Erythrocyte distribution wid th standard deviationOrdered By: Kayleigh Singleton on 09-25-2023 Erythrocyte distribution width (RBC) [Entitic vol] 45.1 fL 35.1-43.9 [facility] Hematocrit Auto (Bld) [Volum e fraction]Ordered By: Kayleigh Singleton on 09-25-2023 Hematocrit (Bld) [Volume fraction] 47.5 % 40-54 [facility] Immature granulocytes/100 WB C Auto (Bld)Ordered By: Kayleigh Singleton on 09-25-2023 Immature granulocytes/100 WBC (Bld) 1.900 % 0.0-0.9 [facility] Comment on above: IG% - Immature Granu locytes (promyelocytes, myelocytes and metamyelocytes) > 1% indicates that a LEFT SHIFT is Present. Laboratory - Chemistry and C hemistry - challengeOrdered By: Arnaldoerroltriston Singleton on 09-25-2023 Albumin/Globulin [Mass ratio] 0.9 {ratio} 0.9-2.4 [facility] ALP [Catalytic activity/Vol] 98 U/L 45-117 [facility] ALT [Catalytic activity/Vol] 176 U/L 16-61 [facility] CO2 [Moles/Vol] 26.0 mmol/L 21.0-32.0 [facility] Globulin (S) [Mass/Vol] 3.7 g/dL 2.2-4.2 [facility] Urea nitrogen/Creatinine [Mass ratio] 15.3 mg/mg 10-20 [facility] Laboratory - Hematology and Cell countsOrdered By: Kayleigh Singleton on 09-25-2023 MCH (RBC) [Entitic mass] 29.0 pg 27.0-32.0 [facility] MCHC (RBC) [Mass/Vol] 32.8 g/dL 32-36 [facility] Nucleated RBC/100 WBC (Bld) [Ratio] 0 % 0-5 [facility] Platelet mean volume (Bld) [Entitic vol] 10.8 fL 6.2-12.0 [facility] Platelets (Bld) [#/Vol] 292 10*3/uL 150-450 [facility] Laboratory - Hematology and Cell countson 09-25-2023 HbA1c (Bld) [Mass fraction] 7.5 % 4.2-6.3 [facility] No Panel InformationOrdered By: Kayleigh Singleton on 09-25-2023 Estimated GFR (MDRD) Amer 85 mL/min >60 [facility] Comment on above: GFR Calc Estimated GFR (MDRD) Non-Af Amer 70 mL/min >60 [facility] Comment on above: Non- GFR Calc Urine Microalbumin/Creatinine Ratio 4.2 mg/g CRE <30 [facility] RBC Auto (Bld) [#/Vol]Ordere d By: Kayleigh Singleton on 09-25-2023 RBC (Bld) [#/Vol] 5.38 10*6/uL 4.6-6.2 [facility] Serum or plasma calcium wayne urement (mass/volume)Ordered By: Kayleigh Singleton on 09-25-2023 Calcium [Mass/Vol] 9.2 mg/dL 8.5-10.1 [facility] Serum or plasma creatinine m easurement (mass/volume)Ordered By: Kayleigh Singleton on 09-25-2023 Creatinine [Mass/Vol] 1.18 mg/dL 0.70-1.30 [facility] Comment on above: The validity of the calculated GFR & GFRAA in patients over 70 years has not been determined. Clinical correlation is essential. Serum or plasma urea nitroge n measurement (mass/volume)Ordered By: Kayleigh Singleton on 09-25-2023 Urea nitrogen [Mass/Vol] 18 mg/dL 7-18 [facility] Thin prep Papanicolaou smear with manual screeningOrdered By: Kayleigh Singleton on 09-25-2023 Thin prep Papanicolaou smear with manual screening 3.4 g/dL 3.2-5.0 [facility] Thin prep Papanicolaou smear with manual screening 68 U/L 15-37 [facility] Thin prep Papanicolaou smear with manual screening 4 5-15 [facility] Thin prep Papanicolaou smear with manual screening 11.7 mg/L NO RANGE EST. [facility] Urine creatinine measurement (mass/volume)Ordered By: Kayleigh Singleton on 09-25-2023 Creatinine (U) [Mass/Vol] 276.00 mg/dL NO RANGE EST. [facility] Gram stain for investigation of transfusion reactionOrdered By: Roe Combs on 08-19-2023 Microscopic observation Gram stain Nom (Unsp spec) [facility] No Panel InformationOrdered By: Roe Combs on 08-19-2023 Nasopharyngeal Culture No growth in 48 hours. [facility] Laboratory - Hematology and Cell countson 06-19-2023 HbA1c (d) [Mass fraction] 6.4 % 4.2-6.3 [facility] Gram stain for investigation of transfusion reactionOrdered By: Seymour Erickson on 05-31-2023 Microscopic observation Gram stain Nom (Unsp spec) [facility] Gram stain for investigation of transfusion reactionOrdered By: Seymour Erickson on 05-30-2023 Microscopic observation Gram stain Nom (Unsp spec) [facility] Anaerobic cultureOrdered By: Seymour Erickson on 05-08-2023 Bacteria identified Anaer cx Nom (Unsp spec) No growth in 5 days. [facility] Fungus cultureOrdered By: Jasen Erickson on 05-08-2023 Fungus identified Cx Nom (Unsp spec) [facility] Fungus identified Cx Nom (Unsp spec) [facility] Fungus stainOrdered By: Jamey Erickson on 05-08-2023 Fungus identified Fungus stain Nom (Unsp spec) [facility] Fungus identified Fungus stain Nom (Unsp spec) [facility] Glucose Glucometer (dC) [M ass/Vol]Ordered By: Seymour Erickson on 05-08-2023 Glucose [Mass/Vol] 110 mg/dL 74-106 [facility] Comment on above: MANAGEMENT OF PATIEN T CARE PER NURSING PROTOCOL Gram stain for investigation of transfusion reactionOrdered By: Seymour Erickson on 05-08-2023 Microscopic observation Gram stain Nom (Unsp spec) [facility] Routine wound cultureOrdered By: Seymour Erickson on 05-08-2023 Bacteria identified Cx Nom (Wound) No growth aerobically. [facility] XR RIBS 2 VIEWS LEFT/PA CHES T(AO)on 04-03-2023 XR RIBS 2 VIEWS LEFT/PA CHEST(AO) ORIGINAL EXAMINATION: 2 XRAY VIEWS OF LEFT [...] 04/03/2023 2:25:02 PM Ordering Provider: [facility] Basophil percentageOrdered B y: Kayleigh Singleton on 03-14-2023 Bilirubin [Mass/Vol] 0.40 mg/dL 0.20-1.00 [facility] Comment on above: For patients on eltr ombopag therapy, use of Dimension Dana TBIL is not recommended. Chloride [Moles/Vol] 106 mmol/L 98-107 [facility] Glucose [Mass/Vol] 143 mg/dL 74-106 [facility] Comment on above: Fasting Glucose resu lt greater than or equal to 126 mg/dL suggests DIABETES MELLITUS per A.D.A. criteria. Potassium [Moles/Vol] 3.8 mmol/L 3.5-5.1 [facility] Protein [Mass/Vol] 7.3 g/dL 6.4-8.2 [facility] Sodium [Moles/Vol] 139 mmol/L 136-145 [facility] Laboratory - Chemistry and C hemistry - challengeOrdered By: Kayleigh Singleton on 03-14-2023 ALP [Catalytic activity/Vol] 118 U/L 45-117 [facility] ALT [Catalytic activity/Vol] 94 U/L 16-61 [facility] CO2 [Moles/Vol] 26.0 mmol/L 21.0-32.0 [facility] Globulin (S) [Mass/Vol] 3.6 g/dL 2.2-4.[address] [facility] Urea nitrogen/Creatinine [Mass ratio] 13.7 mg/mg 10-20 [facility] No Panel InformationOrdered By: Kayleigh Singleton on 03-14-2023 Estimated GFR (MDRD) Amer 70 mL/min >60 [facility] Comment on above: GFR Calc Estimated GFR (MDRD) Non-Af Amer 58 mL/min >60 [facility] Comment on above: Non- GFR Calc Serum or plasma albumin wayne urement (mass/volume)Ordered By: Kayleigh Singleton on 03-14-2023 Albumin [Mass/Vol] 3.7 g/dL 3.2-5.0 [facility] Serum or plasma albumin/glob ulin mass ratioOrdered By: Kayleigh Singleton on 03-14-2023 Albumin/Globulin [Mass ratio] 1.0 {ratio} 0.9-2.4 [facility] Serum or plasma calcium wayne urement (mass/volume)Ordered By: Kayleigh Singleton on 03-14-2023 Calcium [Mass/Vol] 9.1 mg/dL 8.5-10.1 [facility] Serum or plasma creatinine m easurement (mass/volume)Ordered By: Kayleigh Singleton on 03-14-2023 Creatinine [Mass/Vol] 1.39 mg/dL 0.70-1.30 [facility] Comment on above: The validity of the calculated GFR & GFRAA in patients over 70 years has not been determined. Clinical correlation is essential. Serum or plasma urea nitroge n measurement (mass/volume)Ordered By: Kayleigh Singleton on 03-14-2023 Urea nitrogen [Mass/Vol] 19 mg/dL 7-18 [facility] Thin prep Papanicolaou smear with manual screeningOrdered By: Kayleigh Singleton on 03-14-2023 Thin prep Papanicolaou smear with manual screening 36 U/L 15-37 [facility] Thin prep Papanicolaou smear with manual screening 7 5-15 [facility] Whole blood hemoglobin A1c/t otal hemoglobin ratio (mass fraction)Ordered By: Kayleigh Singleton on 03-14-2023 HbA1c (Bld) [Mass fraction] 5.9 % 3.8-5.6 [facility] Comment on above: Normal < 5.7 % Predi abetic 5.7 - 6.4 % Diabetic >or= 6.5 % Please note range changes. Absolute lymphocyte countOrd ered By: Kayleigh Singleton on 12-20-2022 Lymphocytes Auto (Unsp spec) [#/Vol] 2.13 10*3/uL 0.83-4.51 [facility] Basophil percentageOrdered B y: Kayleigh Singleton on 12-20-2022 Basophils/100 WBC (Bld) 0.6 % 0-[address] [facility] Bilirubin [Mass/Vol] 0.30 mg/dL 0.20-1.00 [facility] Comment on above: For patients on eltr ombopag therapy, use of Dimension Dana TBIL is not recommended. Chloride [Moles/Vol] 107 mmol/L 98-107 [facility] Cholesterol [Mass/Vol] 201 mg/dL <200 [facility] Comment on above: <200 mg/dL Desirable 200-240 mg/dL Borderline >240 mg/dL High Risk Eosinophils/100 WBC (Bld) 1.4 % 0-5 [facility] Glucose [Mass/Vol] 100 mg/dL 74-106 [facility] Comment on above: Fasting Glucose resu lt from 100 to 125 mg/dL suggests IMPAIRED HOMEOSTASIS per A.D.A. criteria. Neutrophils (Bld) [#/Vol] 5.3 10*3/uL 2.0-7.7 [facility] Neutrophils/100 WBC (Bld) 63.3 % 47-70 [facility] Potassium [Moles/Vol] 3.8 mmol/L 3.5-5.1 [facility] Protein [Mass/Vol] 7.3 g/dL 6.4-8.2 [facility] Sodium [Moles/Vol] 141 mmol/L 136-145 [facility] Triglyceride [Mass/Vol] 117 mg/dL <199 [facility] Comment on above: The drugs N-Acetylcy steine and Metamizole may falsely depress this assay.Serum Triglycerides Reference Interval Normal <150 mg/dL Borderline high 150 - 199 mg/dL High 200 - 499 mg/dL Very High > or = 500 mg/dL WBC (Bld) [#/Vol] 8.4 10*3/uL 4.4-11.0 [facility] Blood erythrocytes count (nu mber/volume)Ordered By: Kayleigh Singleton on 12-20-2022 RBC (Bld) [#/Vol] 5.08 10*6/uL 4.6-6.2 [facility] Blood hemoglobin measurement (mass/volume)Ordered By: Kayleigh Singleton on 12-20-2022 Hemoglobin (Bld) [Mass/Vol] 15.1 g/dL 13.0-16.5 [facility] Blood lymphocytes/100 leukoc ytesOrdered By: [facility] Sing[facility] on 12-20-2022 Lymphocytes/100 WBC (Bld) 25.2 % 19-41 [facility] Blood monocytes/100 leukocyt esOrdered By: stormerroltriston Singleton on 12-20-2022 Monocytes/100 WBC (Bld) 9.1 % 0-[address] [facility] Blood platelet mean volumeOr dered By: Kayleigh Singleton on 12-20-2022 Platelet mean volume (Bld) [Entitic vol] 10.0 fL 6.2-12.0 [facility] Determination of erythrocyte mean corpuscular volume (MCV)Ordered By: Kayleigh Singleton on 12-20-2022 MCV (RBC) [Entitic vol] 89.2 fL 80-[address] [facility] Hematocrit Auto (Bld) [Volum e fraction]Ordered By: Kayleigh Singleton on 12-20-2022 Hematocrit (Bld) [Volume fraction] 45.3 % 40-54 [facility] Laboratory - Chemistry and C hemistry - challengeOrdered By: stormerroltriston Singleton on 12-20-2022 ALP [Catalytic activity/Vol] 103 U/L 45-117 [facility] ALT [Catalytic activity/Vol] 182 U/L 16-61 [facility] CO2 [Moles/Vol] 25.0 mmol/L 21.0-32.0 [facility] Globulin (S) [Mass/Vol] 3.7 g/dL 2.2-4.[address] [facility] Urea nitrogen/Creatinine [Mass ratio] 15.8 mg/mg 10-20 [facility] Laboratory - Hematology and Cell countsOrdered By: Kayleigh Singleton on 12-20-2022 Erythrocyte distribution width (RBC) [Entitic vol] 45.2 fL 35.1-43.9 [facility] Erythrocyte distribution width (RBC) [Ratio] 13.8 % 11.6-14.6 [facility] Immature granulocytes/100 WBC (Bld) 0.400 % 0.0-0.9 [facility] Comment on above: IG% - Immature Granu locytes (promyelocytes, myelocytes and metamyelocytes) > 1% indicates that a LEFT SHIFT is Present. MCH (RBC) [Entitic mass] 29.7 pg 27.0-32.0 [facility] Nucleated RBC/100 WBC (Bld) [Ratio] 0 % 0-5 [facility] MCHC Auto (RBC) [Mass/Vol]Or dered By: Kayleigh Singleton on 12-20-2022 MCHC (RBC) [Mass/Vol] 33.3 g/dL 32-36 [facility] No Panel InformationOrdered By: Kayleigh Singleton on 12-20-2022 Estimated GFR (MDRD) Amer 74 mL/min >60 [facility] Comment on above: GFR Calc Estimated GFR (MDRD) Non-Af Amer 61 mL/min >60 [facility] Comment on above: Non- GFR Calc Platelets bldOrdered By: Johny Singleton on 12-20-2022 Platelets (Bld) [#/Vol] 234 10*3/uL 150-450 [facility] Serum or plasma albumin wayne urement (mass/volume)Ordered By: Kayleigh Singleton on 12-20-2022 Albumin [Mass/Vol] 3.6 g/dL 3.2-5.0 [facility] Serum or plasma albumin/glob ulin mass ratioOrdered By: Kayleigh Singleton on 12-20-2022 Albumin/Globulin [Mass ratio] 1.0 {ratio} 0.9-2.4 [facility] Serum or plasma calcium wayne urement (mass/volume)Ordered By: Kayleigh Singleton on 12-20-2022 Calcium [Mass/Vol] 9.5 mg/dL 8.5-10.1 [facility] Serum or plasma cholesterol in HDL measurement (mass/volume)Ordered By: Kayleigh Singleton on 12-20-2022 Cholesterol in HDL [Mass/Vol] 49 mg/dL >40 [facility] Comment on above: The drugs N-Acetylcy steine and Metamizole may falsely depress this assay. Reference Range HDL <40 mg/dL Low HDL Cholesterol HDL >or= 60 mg/dL High HDL Cholesterol Serum or plasma cholesterol in VLDL measurement (mass/volume)Ordered By: Kayleigh Singleton on 12-20-2022 Cholesterol in VLDL [Mass/Vol] 23 mg/dL 5-40 [facility] Serum or plasma creatinine m easurement (mass/volume)Ordered By: Kayleigh Singleton on 12-20-2022 Creatinine [Mass/Vol] 1.33 mg/dL 0.70-1.30 [facility] Comment on above: The validity of the calculated GFR & GFRAA in patients over 70 years has not been determined. Clinical correlation is essential. Serum or plasma low density lipoprotein (LDL) cholesterol measurement (mass/volume)Ordered By: Kayleigh Singleton on 12-20-2022 Cholesterol in LDL [Mass/Vol] 129 mg/dL 0-130 [facility] Serum or plasma urea nitroge n measurement (mass/volume)Ordered By: Kayleigh Singleton on 12-20-2022 Urea nitrogen [Mass/Vol] 21 mg/dL 7-18 [facility] Thin prep Papanicolaou smear with manual screeningOrdered By: Kayleigh Singleton on 12-20-2022 Thin prep Papanicolaou smear with manual screening 61 U/L 15-37 [facility] Thin prep Papanicolaou smear with manual screening 9 5-15 [facility] Whole blood hemoglobin A1c/t otal hemoglobin ratio (mass fraction)Ordered By: Kayleigh Singleton on 12-20-2022 HbA1c (Bld) [Mass fraction] 6.9 % 3.8-5.6 [facility] Comment on above: Normal < 5.7 % Predi abetic 5.7 - 6.4 % Diabetic >or= 6.5 % Please note range changes. Anaerobic cultureOrdered By: Dr. Erickson on 11-28-2022 Bacteria identified Anaer cx Nom (Unsp spec) No growth in 5 days. [facility] Bacterial body fluid culture Ordered By: Dr. Erickson on 11-26-2022 Bacteria identified Cx Nom (Body fld) Culture exhibits no growth. [facility] * Body fluid crystals type b y light microscopyOrdered By: Dr. Erickson on 11-23-2022 Crystals LM Nom (Body fld) NO CRYSTALS SEEN [facility] Comment on above: CRYSTAL RESULT IS PRELIMINARY. SEE PATH REVIEW FOR FINAL REPORT. Anaerobic cultureOrdered By: Seymour Erickson on 11-23-2022 Bacteria identified Anaer cx Nom (Unsp spec) No growth in 5 days. [facility] Bacterial body fluid culture Ordered By: Seymour Erickson on 11-23-2022 Bacteria identified Cx Nom (Body fld) Culture exhibits no growth. [facility] Blood lymphocytes/100 leukoc ytesOrdered By: Dr. Erickson on 11-23-2022 Lymphocytes/100 WBC (Bld) 23 % [facility] Color of Synovial fluidOrder ed By: Dr. Erickson on 11-23-2022 Color (Syn fld) Bloody Pale Yellow [facility] Determination of appearance of synovial fluidOrdered By: Dr. Erickson on 11-23-2022 Appearance (Syn fld) Cloudy CLEAR [facility] Gram stain for investigation of transfusion reactionOrdered By: Seymour Erickson on 11-23-2022 Microscopic observation Gram stain Nom (Unsp spec) [facility] Gram stain for investigation of transfusion reactionOrdered By: Dr. Erickson on 11-23-2022 Microscopic observation Gram stain Nom (Unsp spec) [facility] No Panel InformationOrdered By: Dr. Erickson on 11-23-2022 Synovial Fluid Mononuclear WBCs 0.165 10^3/ul [facility] Synovial Fluid Mononuclear WBCs % 69.3 % [facility] Synovial Fluid Polynuclear WBCs 0.073 10^3/uL [facility] Synovial Fluid Polynuclear WBCs % 30.7 % [facility] Synovial Fluid Total Cells Counted 0.2440 10^3/uL 0.000-0.000 [facility] Comment on above: This is the Total Nu mber of Nucleated Cell Types in the Body Fluid. Qualitative synovial fluid v iscosityOrdered By: Dr. Erickson on 11-23-2022 Viscosity Ql (Syn fld) Mod. Viscous HIGH [facility] Review by pathologistOrdered By: Dr. Erickson on 11-23-2022 Pathologist review Andre (Unsp spec) [Interp] Reviewed [facility] Comment on above: Previous reported re sult: May follow Edited by: RGOOD on 11/27/22:1240Negative for malignant cells and crystals.Daniel Peck M.D. 11/27/22 AMENDED REPORT 11/27/22 1240 PATH COM/SYFL previously reported as: May follow Specimen source identificati on of body fluidOrdered By: Dr. Erickson on 11-23-2022 Specimen source Nom (Body fld) SYNOVIAL [facility] Specimen source Nom (Body fld) [facility] Synovial fluid erythrocytes count (number/volume)Ordered By: Dr. Erickson on 11-23-2022 RBC (Syn fld) [#/Vol] 0.036 10^6/uL 0-0 [facility] Synovial fluid glucose measu rement (mass/volume)Ordered By: Dr. Erickson on 11-23-2022 Glucose (Syn fld) [Mass/Vol] 129 mg/dL . [facility] Comment on above: : BODY FLUID TYPE : GLUCOSE : : : : : Amniotic Fluid : 45 - 76 : : : : : Bile, Clear : < 5 : : : : : Bile, Yellow : < 8 : : : : : Lymph : 48 - 200 : : : : : Nasal Secretion : < 10 : : : : : Pleural Fluid : 65 - 99 : : : : : Saliva : < 2 : : (Mixed Glands) : : : : : : Sweat : < 7 : : : : : Synovial Fluid : 65 - 99 : : : : : Tears : 76 - 288 : : : : [place] W, Niall V. Reference Intervals for Adults and Children 2007. Ninth edition (V9.1) [employer], [facility]; [place]: February 2009. Synovial fluid leukocytes co unt (number/volume)Ordered By: Dr. Erickson on 11-23-2022 WBC (Syn fld) [#/Vol] 0.2380 10^3/uL 0.000-0.00 2 [facility] Synovial fluid monocyte perc entageOrdered By: Dr. rEickson on 11-23-2022 Monocytes/100 WBC (Syn fld) 3 % [facility] Synovial fluid neutrophil pe rcentageOrdered By: Dr. Erickson on 11-23-2022 Neutrophils/100 WBC (Syn fld) 28 % 0-25 [facility] Synovial fluid other cells/1 00 leukocytes identificationOrdered By: Dr. Erickson on 11-23-2022 Other cells/100 WBC Nom (Syn fld) 46 % [facility] Synovial fluid volume measur ementOrdered By: Dr. Erickson on 11-23-2022 Specimen volume (Syn fld) 3.0 ml 0.1-3.5 [facility] CNOVon 07-17-2022 CNOV Office Visit (UCWSTR ) GIOVANNI JOHNSON Carleen ([id number]) 1975 M Date Time Provider Department 07/17/22 10:30 AM [facility] your visit today, we recorded the following information about you: Temperature Pulse Respiration Blood pressure 97.9 degrees 98/minute 16/minute 132/86 Weight 132 kg Anya Mancera APRN.CNP 07/17/2022 10:45 AM Signed Subjective The history is provided by the patient. No manager language was used. HPI Giovanni Johnson is a 47 year old male who presents today for CC of sore throat and uvula swelling. He is also having cough and congestion. This started yesterday. He has used ibuprofen, dayquil/nyquil with short term relief. Denies any known exposure to covid, flu or strep BP 132/86 Pulse 98 Temp 36.6 ?C (97.9 ?F) (Tympanic) Resp 16 Wt 132 kg (291 lb) SpO2 97% BMI 36.37 kg/m? Social History Tobacco Use Smoking status: Never Smokeless tobacco: Never Vaping Use Vaping Use: Never used Substance Use Topics Alcohol use: Yes Comment: occasionally Drug use: No PAST MEDICAL HISTORY Diagnosis Date Arrhythmia a fib? Gout Hyperlipidemia Hypertension Obesity (BMI 30-39.9) PO (obstructive sleep apnea) 04/12/2017 moderate Prediabetes I have confirmed and edited as necessary, the [facility] Review of Systems Constitutional: Positive for malaise/fatigue. Negative for chills and fever. HENT: Positive for congestion, sinus pain and sore throat. Negative for ear pain. Respiratory: Positive for cough. Negative for sputum production, shortness of breath and wheezing. Cardiovascular: Negative for chest pain. Gastrointestinal: Negative for abdominal pain, diarrhea, nausea and vomiting. Musculoskeletal: Positive for myalgias. Neurological: Positive for headaches. Objective Physical Exam Vitals and nursing note reviewed. Constitutional: Appearance: He is not toxic-appearing. HENT: Head: Normocephalic and atraumatic. Right Ear: Tympanic membrane, ear canal and external ear normal. Left Ear: Tympanic membrane, ear canal and external ear normal. Nose: Mucosal edema, congestion and rhinorrhea present. Right Sinus: No maxillary sinus tenderness or frontal sinus tenderness. Left Sinus: No maxillary sinus tenderness or frontal sinus tenderness. Mouth/Throat: Pharynx: Uvula midline. Pharyngeal swelling, posterior oropharyngeal erythema and uvula swelling present. No oropharyngeal exudate. Tonsils: No tonsillar abscesses. Cardiovascular: Rate and Rhythm: Normal rate and regular rhythm. Heart sounds: Normal heart sounds. Pulmonary: Effort: Pulmonary effort is normal. Breath sounds: Normal breath sounds. No decreased breath sounds, wheezing, rhonchi or rales. Lymphadenopathy: Head: Right side of head: No submental, submandibular, tonsillar or preauricular adenopathy. Left side of head: No submental, submandibular, tonsillar or preauricular adenopathy. Cervical: No cervical adenopathy. Right cervical: No superficial cervical adenopathy. Left cervical: No superficial cervical adenopathy. Neurological: Mental Status: He is alert. ASSESSMENT/PLAN: 1. Sore throat - ICD9: 462, ICD10: J02.9 (primary diagnosis) - suspect viral - Alere Strep Test negative, no culture pending If covid is negative will start prednisone for swelling - STREP A MOLECULAR (POC) 2. URI with cough and congestion - ICD9: 465.9, ICD10: J06.9 - Discussed viral etiology and rationale for treatment. - Symptomatic treatment with prn analgesia - Supportive care with fluids and rest Home isolation Testing ordered Comfort measures discussed - see patient instructions. When to seek higher level of care Notified in 12-24 hours with results, available [facility] WITH FLUA+B, ROUTINE Diagnosis and treatment plan were discussed and questions were answered to the patient's satisfaction. Pt acknowledged understanding of concepts and follow up plan. Specific signs and symptoms that would indicate the need for higher level of care were discussed in detail warranting prompt ER evaluation. Anya Mancera APRN.KE Mancera APRN.SHREDDER TENDER 07/17/2022 10:39 AM Signed Strep is negative Tylenol (generic acetaminophen) 500 mg-2 tabs every 8 hrs. as needed for fever and aches Ibuprofen 600 mg (3-200mg tablets) every 6 hours Rest, increase water intake Motrin or Tylenol as needed for fever or pain. Salt water gargles, chloraseptic spray or lozenges as needed for sore throat. Warm beverages, honey. Nasal saline spray as needed Cool mist humidifier at night If covid is negative start prednisone for swelling * Prednisone 40 mg (2 tablets) per day for 5 days, take in morning or early in day * Do not NSAIDs during this 5 day course (ibuprofen, naproxen, Motrin, Aleve, Advil) Tylenol only during prednisone use * Follow up with primary care provider if no (more content not included)... Normal [facility] STREP A MOLECULAR (POC)on Procedural Control Valid [facility] Strep A (POCT) Negative Negative [facility] 06-04-2022 [facility] GIOVANNI JOHNSON ([id number]) 1975 M Date Time Provider Department 06/04/22 LILLIAN BERMUDEZ [facility] During your visit today, we recorded the following information about you: Lillian Bermudez APRN.CNP 06/04/2022 10:37 AM Signed Continue medication regiment that was discussed at office visit please make follow-up appointment with your primary care physician x-ray came back inconclusive whether it was pneumonia or not pneumonia. Lorene Morales Ma 06/04/2022 11:18 AM Signed Pt notified and voiced understanding. Lorene Morales Ma Allergies As of Date: 06/04/2022 Noted Allergy Reaction COLCHICINE 08/02/2016 8 - GI Upset Date Reviewed: 06/03/2022 Reviewed by: Cassidy Malone MA - Fully Assessed Reason for Visit: Results [95] Prescriptions as of 06/04/2022 - diclofenac (VOLTAREN) 1 % topical gel Apply to affected area as needed. - doxycycline (VIBRA-TABS) 100 mg tablet Take 1 tablet by mouth twice daily for 7 days. - predniSONE (DELTASONE) 20 mg tablet Take 2 tablets by mouth once daily for 5 days. - GABAPENTIN ORAL Take 1 tablet by mouth once daily. 400mg daily - allopurinol (ZYLOPRIM) 300 mg tablet Take 300 mg by mouth once daily. - hydroCHLOROthiazide (HYDRODIURIL, ESIDRIX) 25 mg tablet Take 25 mg by mouth once daily. - omeprazole (PRILOSEC) 40 mg capsule Take 40 mg by mouth once daily. - meloxicam (MOBIC) 15 mg tablet Take 15 mg by mouth once daily. - pramipexole (MIRAPEX) 0.125 mg tablet Take 1 tablet by mouth daily at bedtime. - aspirin, enteric coated (ADULT LOW DOSE ASPIRIN) 81 mg EC tablet Take 1 tablet by mouth once daily. - CALCIUM CITRATE ORAL Take 500 mg by mouth once daily. - potassium gluconate 550 mg (90 mg) tab Take by mouth once daily. - celery seed oil, bulk, oil 500 mg once daily. - Ibuprofen 200 mg cap Take by mouth. 600-800mg daily as needed for pain - diltiazem CD (CARDIZEM CD, CARTIA XT) 240 mg 24 hr capsule Take 1 capsule by mouth once daily. - lisinopril (ZESTRIL, PRINIVIL) 20 mg tablet Take 1 tablet by mouth once daily. - naproxen (NAPROSYN) 500 mg tablet Take 1 tablet by mouth twice daily as needed (for pain/inflammation). Take with food. - MAGNESIUM CARBONATE ORAL Take 400 mg by mouth once daily. - CALCIUM CARBONATE (CALCIUM 500 ORAL) Take by mouth. - CALCIUM CARBONATE/VITAMIN D3 (VITAMIN D-3 ORAL) Take by mouth. Problem List As Of Date 06/04/2022 Noted Resolved Hypertension [I10] Arrhythmia [I49.9] Medial epicondylitis of right elbow [M77.01] 12/13/2016 Prediabetes [R73.03] Hyperlipidemia [E78.5] Diastasis recti [M62.08] 04/01/2017 Umbilical hernia without mention of obstruction*04/01/2017 PO (obstructive sleep apnea) [G47.33] 04/12/2017 Encounter Status:Closed by LORENE MORALES MA on 06/04/22 Normal [facility] XR CHEST 2V FRONTAL/LATon XR CHEST 2V FRONTAL/LAT * * *Final Repor t* * * DATE OF EXAM: Jun 04 2022 10:02AM WOX [id number] - XR CHEST 2V FRONTAL/LAT / PROCEDURE REASON: Acute cough * * * * Physician Interpretation * * * * EXAMINATION: CHEST RADIOGRAPH (2 VIEW FRONTAL and LATERAL) CLINICAL HISTORY: Acute cough MQ: XC2_6 EXAM DATE/TIME: 06/04/2022 10:02 AM COMPARISON: There are no prior relevant examinations available for comparison within the [facility]. RESULT: Lines, tubes, and devices: None. Lungs and pleura: There is mild elevation of the left hemidiaphragm of unknown chronicity. Could be chronic and on the basis of eventration. Subtle underlying infiltrate not excluded. There is no focal consolidation or acute pleural process. There is no vascular redistribution to suggest pulmonary edema. Cardiomediastinal silhouette: Normal cardiomediastinal silhouette. Bones/soft tissues: The bony structures are intact with mild degenerative change. No bony destructive process noted. IMPRESSION: No definite acute radiographic abnormality. Eventration left hemidiaphragm with vague pleural-parenchymal stranding could indicate chronic changes versus subtle interstitial pneumonia. First Line Production Supervisor: FAVIO Transcribe Date/Time: Jun 04 2022 10:18A Dictated by : CAREN CACERES MD This examination was interpreted and the report reviewed and electronically signed by: CAREN CACERES MD on Jun 04 2022 10:19AM EST [id number] Normal [facility] XR Chest PA and Lateralon IMPRESSION: No definite acute radiographic abnormality. Eventration left hemidiaphragm with vague pleural-parenchymal stranding could indicate chronic changes versus subtle interstitial pneumonia. First Line Production Supervisor: PSCCamilla Transcribe Date/Time: Jun 04 2022 10:18A Dictated by : CRAEN CACERES MD This examination was interpreted and the report reviewed and electronically signed by: CAREN CACERES MD on Jun 04 2022 10:19AM EST DIVISION OF RADIOLOGY * * *Final Report* * * DATE OF EXAM: Jun 04 2022 10:02AM WOX [id number] - XR CHEST 2V FRONTAL/LAT / PROCEDURE REASON: Acute cough * * * * Physician Interpretation * * * * EXAMINATION: CHEST RADIOGRAPH (2 VIEW FRONTAL & LATERAL) CLINICAL HISTORY: Acute cough MQ: XC2_6 EXAM DATE/TIME: 06/04/2022 10:02 AM COMPARISON: There are no prior relevant examinations available for comparison within the [facility]. RESULT: Lines, tubes, and devices: None. Lungs and pleura: There is mild elevation of the left hemidiaphragm of unknown chronicity. Could be chronic and on the basis of eventration. Subtle underlying infiltrate not excluded. There is no focal consolidation or acute pleural process. There is no vascular redistribution to suggest pulmonary edema. Cardiomediastinal silhouette: Normal cardiomediastinal silhouette. Bones/soft tissues: The bony structures are intact with mild degenerative change. No bony destructive process noted. DIVISION OF RADIOLOGY Provider, [facility] - 06/04/2022 * * *Final Report* * * DATE OF EXAM: Jun 04 2022 10:02AM WOX [id number] - XR CHEST 2V FRONTAL/LAT / PROCEDURE REASON: Acute cough * * * * Physician Interpretation * * * * EXAMINATION: CHEST RADIOGRAPH (2 VIEW FRONTAL & LATERAL) CLINICAL HISTORY: Acute cough MQ: XC2_6 EXAM DATE/TIME: 06/04/2022 10:02 AM COMPARISON: There are no prior relevant examinations available for comparison within the [facility]. RESULT: Lines, tubes, and devices: None. Lungs and pleura: There is mild elevation of the left hemidiaphragm of unknown chronicity. Could be chronic and on the basis of eventration. Subtle underlying infiltrate not excluded. There is no focal consolidation or acute pleural process. There is no vascular redistribution to suggest pulmonary edema. Cardiomediastinal silhouette: Normal cardiomediastinal silhouette. Bones/soft tissues: The bony structures are intact with mild degenerative change. No bony destructive process noted. IMPRESSION IMPRESSION: No definite acute radiographic abnormality. Eventration left hemidiaphragm with vague pleural-parenchymal stranding could indicate chronic changes versus subtle interstitial pneumonia. First Line Production Supervisor: PSCB Transcribe Date/Time: Jun 04 2022 10:18A Dictated by : CAREN CACERES MD This examination was interpreted and the report reviewed and electronically signed by: CAREN CACERES MD on Jun 04 2022 10:19AM EST [facility] Study observation (narrative) [facility] X[facility] Chest PA and LateralOrder ed By: [facility] Provider on 06-04-2022 [facility] CNOVon 06-03-2022 CNOV Office Visit (UCWSTR ) GIOVANNI JOHNSON Carleen ([id number]) 1975 M Date Time Provider Department 06/03/22 9:15 AM LILLIAN BERMUDEZ [facility] During your visit today, we recorded the following information about you: Temperature Pulse Respiration Blood pressure 97.2 degrees 103/minute 20/minute 122/84 Weight 133.3 kg Lillian Bermudez APRN.CNP 06/03/2022 9:15 AM Signed CC: Patient presents with: Cough: Nasal congestion x10 days HPI: Giovanni P Elizabeth is a 47 year old male who presents to the office with complaint of head congestion and cough, nonproductive for 10 days. Symptoms are staying the same. Associated symptoms includes cough. Denies headache, body aches, fever, nausea, vomiting , and diarrhea. Treatments tried include nothing so far. with no relief of symptoms. Sick contacts: unknown. History of asthma, frequent episodes of bronchitis, chronic bronchitis, bronchiectasis or COPD: No Smoker: No Seasonal/environmental allergies: No The ROS is otherwise negative. The patient's pmh, medications, allergies, and past visits are reviewed. PHYSICAL EXAM: BP 122/84 Pulse 103 Temp 36.2 ?C (97.2 ?F) Resp 20 Wt 133.3 kg (293 lb 12.8 oz) SpO2 97% BMI 36.72 kg/m? General appearance: alert, cooperative, pleasant, in no acute distress Head: Normocephalic Eyes: EOM's intact, conjunctiva pink and moist, no icterus, sclera white, non-injected Ears: Right ear: External ear/canal- Normal, TM - clear with good landmarks. Left ear: External ear/canal- Normal, TM - clear with good landmarks Oropharynx:moist without lesions, No erythema, exudates or tonsillar hypertrophy. Heart: Negative. RRR without obvious murmur, gallop, or rubs. No ectopy. Lungs: clear to auscultation, without rales or wheeze, good air exchange PAST MEDICAL HISTORY Diagnosis Date Arrhythmia a fib? Gout Hyperlipidemia Hypertension Obesity (BMI 30-39.9) PO (obstructive sleep apnea) 04/12/2017 moderate Prediabetes PAST SURGICAL HISTORY Procedure Laterality Date NONE PAST SURGICAL HISTORY OF double hernia as an infant ALLERGIES [employer]ch[facility] MEDICATIONS diclofenac (VOLTAREN) 1 % topical gel Apply to affected area as needed. GABAPENTIN ORAL Take 1 tablet by mouth once daily. 400mg daily allopurinol (ZYLOPRIM) 300 mg tablet Take 300 mg by mouth once daily. hydroCHLOROthiazide (HYDRODIURIL, ESIDRIX) 25 mg tablet Take 25 mg by mouth once daily. omeprazole (PRILOSEC) 40 mg capsule Take 40 mg by mouth once daily. pramipexole (MIRAPEX) 0.125 mg tablet Take 1 tablet by mouth daily at bedtime. (Patient taking differently: Take 0.75 mg by mouth daily at bedtime.) aspirin, enteric coated (ADULT LOW DOSE ASPIRIN) 81 mg EC tablet Take 1 tablet by mouth once daily. Ibuprofen 200 mg cap Take by mouth. 600-800mg daily as needed for pain diltiazem CD (CARDIZEM CD, CARTIA XT) 240 mg 24 hr capsule Take 1 capsule by mouth once daily. (Patient taking differently: Take 300 mg by mouth once daily.) lisinopril (ZESTRIL, PRINIVIL) 20 mg tablet Take 1 tablet by mouth once daily. (Patient taking differently: Take 40 mg by mouth once daily.) doxycycline (VIBRA-TABS) 100 mg tablet Take 1 tablet by mouth twice daily for 7 days. predniSONE (DELTASONE) 20 mg tablet Take 2 tablets by mouth once daily for 5 days. meloxicam (MOBIC) 15 mg tablet Take 15 mg by mouth once daily. (Patient not taking: Reported on 06/03/2022) CALCIUM CITRATE ORAL Take 500 mg by mouth once daily. (Patient not taking: Reported on 06/03/2022) potassium gluconate 550 mg (90 mg) tab Take by mouth once daily. (Patient not taking: Reported on 06/03/2022) celery seed oil, bulk, oil 500 mg once daily. (Patient not taking: Reported on 06/03/2022) naproxen (NAPROSYN) 500 mg tablet Take 1 tablet by mouth twice daily as needed (for pain/inflammation). Take with food. (Patient not taking: Reported on 06/03/2022) MAGNESIUM CARBONATE ORAL Take 400 mg by mouth once daily. (Patient not taking: Reported on 06/03/2022) CALCIUM CARBONATE (CALCIUM 500 ORAL) Take by mouth. (Patient not taking: Reported on 06/03/2022) CALCIUM CARBONATE/VITAMIN D3 (VITAMIN D-3 ORAL) Take by mouth. (Patient not taking: Reported on 06/03/2022) FAMILY HISTORY Problem Relation Age of Onset Hypertension Mother other (wilsons disease) Father Heart Maternal Grandfather 68 Stroke Paternal Grandfather 96 Social History Tobacco Use Smoking status: Never Smokeless tobacco: Never Vaping Use Vaping Use: Never used Substance Use Topics Alcohol use: Yes Comment: occasionally Drug use: No ASSESSMENT/PLAN: 1. Acute cough - ICD9: 786.2, ICD10: R05.1 - XR CHEST 2V FRONTAL/LAT Doxycycline twice a day for 7 days. Prednisone daily for 5 days patient will come Saturday morning and get a chest x-ray to rule out pneumonia. If medication needs adjusted we will adjust at that time. (more content not included)... Normal [facility] EMERGENCY REPORTon 05-25-201 8 EMERGENCY REPORT [facility] EMERGENCY ROOM REPORT NAME ACCOUNT SEX AGE ADMIT DISCHARGE PT MED. RECORD# NUMBER DATE DATE TYPE GIOVANNI JOHNSON [id number] Joselin 42 11/12/17 11/12/17 [id number] ROOM: ER DATE OF : 1975 DICTATING PHYSICIAN: Irving Forbes HISTORY OF PRESENT ILLNESS: Patient is a 42-year-old male who presents for low back injury. The patient was at work yesterday in which one of the saws that was next to him had a board that flew off of the saw and hit him in the right lower back. The patient states that he did have some significant pain; however, was able to continue working. Patient states that he did awake this morning, continued to have some lower back pain, states that it was worse when he would rotate or flexor or extend his back. Patient states that he felt that it was getting worse and thus he came to the emergency room. Patient has not taken anything for it. Patient at this time states that he does have some worsening of pain when he takes deep breaths. At this patient also denies any blood in his urine. He came to the emergency department for evaluation. PAST MEDICAL HISTORY: Noncontributory. PAST SURGICAL HISTORY: Noncontributory. PHYSICAL EXAMINATION: Vitals: Temperature 97.7, pulse 81, respirations 16, blood pressure 194/138, O2 sat 97% on room air. Alert and oriented, no acute distress, nontoxic appearing. Cardiac: Regular rate and rhythm, negative for murmurs, rubs, gallops, positive S1, S2. Pulmonary: Clear to auscultation bilaterally. Negative for wheezes, rales, or crackles. Abdomen was soft, nontender, and nondistended. Normal bowel sounds in all 4 quadrants. Negative for Head's or McBurney's. Negative for rigidity, guarding, or distension. Musculoskeletal: Negative for midline spinal tenderness, reproducible pain to palpation of the right lower back paraspinal muscles, red erythematous lesion noted with a small superficial abrasion, does not require any closure. No signs of infection, patient has full range of motion in rotation, flexion and extension, mild pain to palpation of the area, is all surrounding soft tissue, no bony abnormality on physical examination noted. Neuro: Normal gzmpog-hu-tyas, hfme-ff-acme, ambulatory, alert and oriented x3. Cranial nerves II through XII intact. DIAGNOSTIC DATA: Chest x-ray of the right ribs was unremarkable. UA did show 25 blood. Remainder of UA was unremarkable. EMERGENCY DEPARTMENT COURSE AND TREATMENT: At this time, the lesion is in the right lower back, there is no midline spinal tenderness, crepitus or stepoff noted. It is above the SI joint on the right side. It encompasses all soft tissue. There is no ecchymosis or edema truly noted, only some mild erythema. The patient did complain of some pain with deep inspiration and was concerned about a possible rib fracture in Page 1 of 2 GIOVANNI JOHNSON Emergency Room Report which x-ray was obtained and was normal. The patient is ambulatory in the emergency department. The patient did have a UA which was evident for 25 RBC's; however, no manuel blood. We were concerned for possible contusion to the kidney. Given the fact that the patient does have a small amount of hematuria I did explain to him that he needed to continue to watch his urine output as well as its color and that if it became darkened in color or began to show a soda type appearance he needed to immediately return to the emergency room. Patient's vital signs are normal and stable, there is no suggestion of underlying additional injury requiring CT imaging or fast examination. We do not suspect any type of retroperitoneal injury at this time. We have given the patient indications for when to return. The patient did require light duty at work and thus the forms were completed for that. At this time, again the patient is feeling improved, was given a prescription for Naprosyn 500 mg b.i.d. for the next several days. Patient has and understands indications for when to return to the emergency department and has been discharged home. DIAGNOSES: Right lower back pain, musculoskeletal. D: Irving Forbes DO TD: 11/13/17 00:31 JOB #: [id number] Transcribed by: daysi Electronically signed by: IRVING FORBES DO 01/03/18 09:56 Page 2 of 2 GIOVANNI JOHNSON Emergency Room Report Normal [facility] RIBS RT UNILAT W/CHEST EXPIR ATIONon 11-12-2017 RIBS RT UNILAT W/CHEST EXPIRATION [place] [id number] Patient: GIOVANNI JOHNSON Phone#: : 1975 Age: 42 Gender: M Pt. Type: ER Account: [id number] Location: [facility] Ordering: IRVING FORBES Exam Date: 11/12/2017/11:12 Family Phys: NO DOCTOR Charge Code: [id number] Physician: Payette Order #: [id number] DLP Dose#: PROCEDURE: X-RAY RIBS RT UNILAT WITH EXPIRATION CHEST COMPARISON: None. INDICATIONS: Right rib pain FINDINGS: LUNGS: Normal. No significant pulmonary parenchymal abnormalities. VASCULATURE: Normal. Unremarkable pulmonary vasculature. CARDIAC: Normal. No cardiac silhouette abnormality or cardiomegaly. MEDIASTINUM: Normal. No visible mass or adenopathy. PLEURA: Normal. No effusion or pleural thickening. BONES: Normal. No fracture or visible bony lesion. OTHER: Negative. CONCLUSION: No acute disease. Dictated by: Latasha Kaba MD on 11/12/2017 at 11:38 Approved by: Latasha Kaba MD on 11/12/2017 at 11:38 Normal [facility] URINALYSISon 11-12-2017 Amorphous NONE Normal [facility] Comment on above: Performed By: #### 2 [id number] ####[facility],[address] [place] [address] Bilirubin (total) Negative Normal NORMAL: NEGATIVE [facility] Comment on above: Performed By: #### 2 13502 ####[facility],[address] [place] [address] Blood 25 Abnormal NORMAL: NEGATIVE [facility] Comment on above: Performed By: #### 2 69789 ####[facility],[address] [place] [address] Epi Cells NONE Normal [facility] Comment on above: Performed By: #### 2 80008 ####[facility],[address] [place], [place] [id number] Erythrocytes (RBC) RARE Normal 0-3/hpf [facility] Comment on above: Performed By: #### 2 55029 ####[facility],[address] [place] [address] Glucose mass conc NORM Normal NORMAL: NORMAL [facility] Comment on above: Performed By: #### 2 04919 ####[facility],[address] [place], [place] [id number] Ketone Negative Normal NORMAL: NEGATIVE [facility] Comment on above: Performed By: #### 2 94488 ####[facility],[address] [place] [address] Microscopic SEE BELOW Normal [facility] Comment on above: Result Comment: MICR OSCOPIC Performed By: #### 2 64828 ####[facility],[address] [place] [address] Mucous NONE Normal [facility] Comment on above: Performed By: #### 2 83263 ####[facility],[address] [place] [address] pH of blood 6.5 [pH] Normal NORMAL: 5.0-8.0 [facility] Comment on above: Performed By: #### 2 31756 ####[facility],[address] [place], [place] [id number] Protein Negative Normal NORMAL: NEGATIVE [facility] Comment on above: Performed By: #### 2 61874 ####[facility],[address] [place], [place] [id number] Sp [place] 1.005 Low NORMAL: 1.010-1.030 [facility] Comment on above: Performed By: #### 2 44851 ####[facility],[address] [place] [address] Specimen Type Void Normal [facility] Comment on above: Performed By: #### 2 55020 ####[facility],[address] [place] [address] URINALYSIS Normal [facility] Comment on above: Result Comment: URIN ALYSIS Performed By: #### 2 56024 ####[facility],[address] [place] [address],[facility] [address] Urine, bacteria in sediment NONE Normal [facility] Comment on above: Performed By: #### 2 65906 ####[facility],[address] [place] [address],[facility] [address] Urine, casts in sediment NONE Normal [facility] Comment on above: Performed By: #### 2 65242 ####[facility],[address] [place] [address],[facility] [address] Urine, clarity clear Normal NORMAL: CLEAR [facility] Comment on above: Performed By: #### 2 10628 ####[facility],[address] [place] [address],[facility] [address] Urine, color p.yel Normal NORMAL: YELLOW [facility] Comment on above: Performed By: #### 2 63991 ####[facility],[address] [place] [address],[facility] [address] Urine, crystals in sediment NONE Normal [facility] Comment on above: Performed By: #### 2 28201 ####[facility],[address] [place] [address],[facility] [address] Urine, nitrite presence Negative Normal NORM AL: NEGATIVE [facility] Comment on above: Performed By: #### 2 70063 ####[facility],[address] [place] [address] Urine, yeast presence in sediment NONE Normal [facility] Comment on above: Performed By: #### 2 81592 ####[facility],[address] [place] [address] Urobilinog NORM Normal NORMAL: NORMAL [facility] Comment on above: Performed By: #### 2 52531 ####[facility],[address] [place] [address] WBC (Leukocytes) Negative Normal NORMAL: NEGATIVE [facility] Comment on above: Performed By: #### 2 51897 ####[facility],[address] [place] [address] WBC (Leukocytes) RARE Normal 0-5/hpf [facility] Comment on above: Performed By: #### 2 52041 ####[facility],[address] [place] [address] Vital Signs Date Time Vital Sign Value Performing Clinician Facility 01-22-2025 14:01-0400 Body height 190.[address] Kayleigh Singleton MD Work Phone: [facility] 01-22-2025 14:01-0400 Body mass index (BMI) [Ratio] 36.5 kg/m2 Dr. Kayleigh Singleton MD Work Phone: [facility] 01-22-2025 14:01-0400 Body weight 132.[address] Kayleigh Singleton MD Work Phone: [facility] 01-22-2025 14:01-0400 Diastolic blood pressure 78 mm[Hg] Dr. Kayleigh Singleton MD Work Phone: [facility] 01-22-2025 14:01-0400 Heart rate 98 /min Dr. Kayleigh Singleton MD Work Phone: [facility] 01-22-2025 14:01-0400 SaO2% (BldA) [Mass fraction] 95 % Dr. Kayleigh Singleton MD Work Phone: [facility] 01-22-2025 14:01-0400 Systolic blood pressure 117 mm[Hg] Dr. Kayleigh Singleton MD Work Phone: [facility] 01-08-2025 13:37-0400 Body height 190.[address] Kayleigh Singleton MD Work Phone: [facility] 01-08-2025 13:37-0400 Body mass index (BMI) [Ratio] 37.2 kg/m2 Dr. Kayleigh Singleton MD Work Phone: [facility] 01-08-2025 13:37-0400 Body temperature 96.6 [degF] Dr. Kayleigh Singleton MD Work Phone: [facility] 01-08-2025 13:37-0400 Body weight 135.[address] Kayleigh Singleton MD Work Phone: [facility] 01-08-2025 13:37-0400 Diastolic blood pressure 78 mm[Hg] Dr. Kayleigh Singleton MD Work Phone: [facility] 01-08-2025 13:37-0400 Heart rate 96 /min Dr. Kayleigh Singleton MD Work Phone: [facility] 01-08-2025 13:37-0400 Respiratory rate 16 /min Dr. Kayleigh Singleton MD Work Phone: [facility] 01-08-2025 13:37-0400 SaO2% (BldA) [Mass fraction] 95 % Dr. Kayleigh Singleton MD Work Phone: [facility] 01-08-2025 13:37-0400 Systolic blood pressure 132 mm[Hg] Dr. Kayleigh Singleton MD Work Phone: [facility] 01-05-2025 14:43-0400 Body height 190.5 cm Zoltan Rocha MD Work Phone: [facility] 01-05-2025 14:43-0400 Body mass index (BMI) [Ratio] 37.5 kg/m2 Zoltan Rocha MD Work Phone: [facility] 01-05-2025 14:43-0400 Body weight 136.08 kg Zoltan Rocha MD Work Phone: [facility] 01-05-2025 14:43-0400 Diastolic blood pressure 79 mm[Hg] Zoltan Rocha MD Work Phone: [facility] 01-05-2025 14:43-0400 Heart rate 92 /min Zoltan Rocha MD Work Phone: [facility] 01-05-2025 14:43-0400 SaO2% (BldA) [Mass fraction] 94 % Zoltan Rocha MD Work Phone: [facility] 01-05-2025 14:43-0400 Systolic blood pressure 137 mm[Hg] Zoltan Rocha MD Work Phone: [facility] 11-23-2024 10:31-0400 Body height 190.5 cm Zoltan Rocha MD Work Phone: [facility] 11-23-2024 10:31-0400 Body mass index (BMI) [Ratio] 38.1 kg/m2 Zoltan Rocha MD Work Phone: [facility] 11-23-2024 10:31-0400 Body weight 138.26 kg Zoltan Rocha MD Work Phone: [facility] 11-23-2024 10:31-0400 Diastolic blood pressure 76 mm[Hg] Zoltan Rocha MD Work Phone: [facility] 11-23-2024 10:31-0400 Heart rate 81 /min Zoltan Rocha MD Work Phone: [facility] 11-23-2024 10:31-0400 Respiratory rate 16 /min Zoltan Rocha MD Work Phone: [facility] 11-23-2024 10:31-0400 SaO2% (BldA) [Mass fraction] 97 % Zoltan Rocha MD Work Phone: [facility] 11-23-2024 10:31-0400 Systolic blood pressure 125 mm[Hg] Zoltan Rocha MD Work Phone: [facility] 10-05-2024 08:46-0500 Body height 190.[address] Kayleigh Singleton MD Work Phone: [facility] 10-05-2024 08:46-0500 Body mass index (BMI) [Ratio] 37.8 kg/m2 Dr. Kayleigh Singleton MD Work Phone: [facility] 10-05-2024 08:46-0500 Body temperature 96.4 [degF] Dr. Kayleigh Singleton MD Work Phone: [facility] 10-05-2024 08:46-0500 Body weight 137.[address] Kayleigh Singleton MD Work Phone: [facility] 10-05-2024 08:46-0500 Diastolic blood pressure 78 mm[Hg] Dr. Kayleigh Singleton MD Work Phone: [facility] 10-05-2024 08:46-0500 Heart rate 78 /min Dr. Kayleigh Singleton MD Work Phone: [facility] 10-05-2024 08:46-0500 Respiratory rate 16 /min Dr. Kayleigh Singleton MD Work Phone: [facility] 10-05-2024 08:46-0500 SaO2% (BldA) [Mass fraction] 98 % Dr. Kayleigh Singleton MD Work Phone: [facility] 10-05-2024 08:46-0500 Systolic blood pressure 142 mm[Hg] Dr. Kayleigh Singleton MD Work Phone: [facility] 09-24-2024 11:12-0500 Body height 190.5 cm Zoltan Rocha MD Work Phone: [facility] 09-24-2024 11:12-0500 Body mass index (BMI) [Ratio] 37.72 kg/m2 Zoltan Rocha MD Work Phone: [facility] 09-24-2024 11:12-0500 Body weight 136.9 kg Zoltan Rocha MD Work Phone: [facility] 09-24-2024 11:12-0500 Diastolic blood pressure 82 mm[Hg] Zoltan Rocha MD Work Phone: [facility] 09-24-2024 11:12-0500 Heart rate 79 /min Zoltan Rocha MD Work Phone: [facility] 09-24-2024 11:12-0500 Respiratory rate 16 /min Zoltan Rocha MD Work Phone: [facility] 09-24-2024 11:12-0500 SaO2% (BldA) [Mass fraction] 96 % Zoltan Rocha MD Work Phone: [facility] 09-24-2024 11:12-0500 Systolic blood pressure 132 mm[Hg] Zoltan Rocha MD Work Phone: [facility] 07-06-2024 09:05-0500 Body mass index (BMI) [Ratio] 37.3 kg/m2 Dr. Kayleigh Singlteon MD Work Phone: [facility] 07-06-2024 09:05-0500 Body temperature 97.6 [degF] Dr. Kayleigh Singleton MD Work Phone: [facility] 07-06-2024 09:05-0500 Body weight 135.[address] Kayleigh Singleton MD Work Phone: [facility] 07-06-2024 09:05-0500 Diastolic blood pressure 84 mm[Hg] Dr. Kayleigh Singleton MD Work Phone: [facility] 07-06-2024 09:05-0500 Heart rate 84 /min Dr. Kayleigh Singleton MD Work Phone: [facility] 07-06-2024 09:05-0500 Respiratory rate 16 /min Dr. Kayleigh Singleton MD Work Phone: [facility] 07-06-2024 09:05-0500 SaO2% (BldA) [Mass fraction] 95 % Dr. Kayleigh Singleton MD Work Phone: [facility] 07-06-2024 09:05-0500 Systolic blood pressure 120 mm[Hg] Dr. Kayleigh Singleton MD Work Phone: [facility] 09-25-2023 15:00-0500 Body height 190.[address] Kayleigh Singleton Work Phone: [facility] 09-25-2023 15:00-0500 Body mass index (BMI) [Ratio] 36.8 kg/m2 Dr. Kayleigh Singleton Work Phone: [facility] 09-25-2023 15:00-0500 Body temperature 97.6 [degF] Dr. Kayleigh Singleton Work Phone: [facility] 09-25-2023 15:00-0500 Body weight 133.[address] Kayleigh Singleton Work Phone: [facility] 09-25-2023 15:00-0500 Diastolic blood pressure 68 mm[Hg] Dr. Kayleigh Singleton Work Phone: [facility] 09-25-2023 15:00-0500 Heart rate 100 /min Dr. Kayleigh Singleton Work Phone: [facility] 09-25-2023 15:00-0500 Respiratory rate 16 /min Dr. Kayleigh Singleton Work Phone: [facility] 09-25-2023 15:00-0500 SaO2% (BldA) [Mass fraction] 98 % Dr. Kayleigh Singleton Work Phone: [facility] 09-25-2023 15:00-0500 Systolic blood pressure 116 mm[Hg] Dr. Kayleigh Singleton Work Phone: [facility] 09-17-2023 14:29-0500 Body mass index (BMI) [Ratio] 36.5 kg/m2 Dr. Kayleigh Singleton Work Phone: [facility] 09-17-2023 14:29-0500 Body temperature 97.8 [degF] Dr. Kayleigh Singleton Work Phone: [facility] 09-17-2023 14:29-0500 Body weight 132.[address] Kayleigh Singleton Work Phone: [facility] 09-17-2023 14:29-0500 Diastolic blood pressure 82 mm[Hg] Dr. Kayleigh Singleton Work Phone: [facility] 09-17-2023 14:29-0500 Heart rate 108 /min Dr. Kayleigh Singleton Work Phone: [facility] 09-17-2023 14:29-0500 Respiratory rate 16 /min Dr. Kayleigh Singleton Work Phone: [facility] 09-17-2023 14:29-0500 SaO2% (BldA) [Mass fraction] 98 % Dr. Kayleigh Singleton Work Phone: [facility] 09-17-2023 14:29-0500 Systolic blood pressure 126 mm[Hg] Dr. Kayleigh Singleton Work Phone: [facility] 08-13-2023 13:02-0500 Body mass index (BMI) [Ratio] 36.9 kg/m2 Dr. Kayleigh Singleton Work Phone: [facility] 08-13-2023 13:02-0500 Body weight 134.[address] Kayleigh Singleton Work Phone: [facility] 07-08-2023 09:01-0500 Body mass index (BMI) [Ratio] 35.6 kg/m2 Dr. Kayleigh Singleton Work Phone: [facility] 07-08-2023 09:01-0500 Body temperature 96.2 [degF] Dr. Kayleigh Singleton Work Phone: [facility] 07-08-2023 09:01-0500 Diastolic blood pressure 89 mm[Hg] Dr. Kayleigh Singleton Work Phone: [facility] 07-08-2023 09:01-0500 Heart rate 86 /min Dr. Kayleigh Singleton Work Phone: [facility] 07-08-2023 09:01-0500 Respiratory rate 18 /min Dr. Kayleigh Singleton Work Phone: [facility] 07-08-2023 09:01-0500 Systolic blood pressure 131 mm[Hg] Dr. Kayleigh Singleton Work Phone: [facility] 06-19-2023 15:56-0500 Body mass index (BMI) [Ratio] 35.5 kg/m2 Dr. Kayleigh Singleton Work Phone: [facility] 06-19-2023 15:56-0500 Body temperature 97 [degF] Dr. Kayleigh Singleton Work Phone: [facility] 06-19-2023 15:56-0500 Body weight 128.[address] Kayleigh Singleton Work Phone: [facility] 06-19-2023 15:56-0500 Diastolic blood pressure 86 mm[Hg] Dr. Kayleigh Singleton Work Phone: [facility] 06-19-2023 15:56-0500 Heart rate 111 /min Dr. Kayleigh Singleton Work Phone: [facility] 06-19-2023 15:56-0500 Respiratory rate 16 /min Dr. Kayleigh Singleton Work Phone: [facility] 06-19-2023 15:56-0500 SaO2% (BldA) [Mass fraction] 94 % Dr. Kayleigh Singleton Work Phone: [facility] 06-19-2023 15:56-0500 Systolic blood pressure 124 mm[Hg] Dr. Kayleigh Singleton Work Phone: [facility] 06-12-2023 00:55-0400 Body weight 129.[address] Kayleigh Singleton Work Phone: [facility] 06-10-2023 09:18-0400 Body mass index (BMI) [Ratio] 35.6 kg/m2 Dr. Kayleigh Singleton Work Phone: [facility] 06-10-2023 09:18-0400 Body temperature 97 [degF] Dr. Kayleigh Singleton Work Phone: [facility] 06-10-2023 09:18-0400 Diastolic blood pressure 87 mm[Hg] Dr. Kayleigh Singleton Work Phone: [facility] 06-10-2023 09:18-0400 Heart rate 85 /min Dr. Kayleigh Singleton Work Phone: [facility] 06-10-2023 09:18-0400 Respiratory rate 16 /min Dr. Kayleigh Singleton Work Phone: [facility] 06-10-2023 09:18-0400 Systolic blood pressure 134 mm[Hg] Dr. Kayleigh Singleton Work Phone: [facility] 06-03-2023 08:37-0400 Body height 190.[address] Kayleigh Singleton Work Phone: [facility] 06-03-2023 08:37-0400 Body mass index (BMI) [Ratio] 35.6 kg/m2 Dr. Kayleigh Singleton Work Phone: [facility] 06-03-2023 08:37-0400 Body temperature 96.9 [degF] Dr. Kayleigh Singleton Work Phone: [facility] 06-03-2023 08:37-0400 Body weight 129.[address] Kayleigh Singleton Work Phone: [facility] 06-03-2023 08:37-0400 Diastolic blood pressure 83 mm[Hg] Dr. Kayleigh Singleton Work Phone: [facility] 06-03-2023 08:37-0400 Heart rate 87 /min Dr. Kayleigh Singleton Work Phone: [facility] 06-03-2023 08:37-0400 Respiratory rate 16 /min Dr. Kayleigh Singleton Work Phone: [facility] 06-03-2023 08:37-0400 Systolic blood pressure 132 mm[Hg] Dr. Kayleigh Singleton Work Phone: [facility] 05-08-2023 13:51-0400 Body temperature 96.7 [degF] Dr. Kayleigh Singleton Work Phone: [facility] 05-08-2023 13:51-0400 Diastolic blood pressure 67 mm[Hg] Dr. Kayleigh Singleton Work Phone: [facility] 05-08-2023 13:51-0400 Heart rate 73 /min Dr. Kayleigh Singleton Work Phone: [facility] 05-08-2023 13:51-0400 Respiratory rate 14 /min Dr. Kayleigh Singleton Work Phone: [facility] 05-08-2023 13:51-0400 SaO2% (BldA) [Mass fraction] 97 % Dr. Kayleigh Singleton Work Phone: [facility] 05-08-2023 13:51-0400 Systolic blood pressure 108 mm[Hg] Dr. Kayleigh Singleton Work Phone: [facility] 05-08-2023 08:06-0400 Body mass index (BMI) [Ratio] 34.9 kg/m2 Dr. Kayleigh Singleton Work Phone: [facility] 05-08-2023 08:06-0400 Body weight 126.[address] Kayleigh Singleton Work Phone: [facility] 04-03-2023 15:07-0400 Diastolic Blood Pressure Non-Invasive 88 1 REMI MCLEAN MD [facility] 04-03-2023 15:07-0400 Heart rate 89 /min REMI MCLEAN MD [facility] 04-03-2023 15:07-0400 Respiratory rate 22 /min REMI MCLEAN MD [facility] 04-03-2023 15:07-0400 Systolic Blood Pressure Non-Invasive 128 1 REMI MCLEAN MD [facility] 04-03-2023 13:25-0400 Body height 190.5 cm REMI MCLEAN MD [facility] 04-03-2023 13:25-0400 Body temperature 98.96 [degF] REMI MCLEAN MD [facility] 04-03-2023 13:25-0400 Body weight 127.3 kg REMI MCLEAN MD [facility] 04-03-2023 13:25-0400 Diastolic Blood Pressure Non-Invasive 92 1 REMI MCLEAN MD [facility] 04-03-2023 13:25-0400 Heart rate 94 /min REMI MCLEAN MD [facility] 04-03-2023 13:25-0400 Respiratory rate 24 /min REMI MCLEAN MD [facility] 04-03-2023 13:25-0400 Systolic Blood Pressure Non-Invasive 138 1 REMI MCLEAN MD [facility] 03-14-2023 16:21-0400 Body height 190.[address] Kayleigh Singleton Work Phone: [facility] 03-14-2023 16:21-0400 Body mass index (BMI) [Ratio] 36 kg/m2 Dr. Kayleigh Singleton Work Phone: [facility] 03-14-2023 16:21-0400 Body temperature 98.5 [degF] Dr. Kayleigh Singleton Work Phone: [facility] 03-14-2023 16:21-0400 Body weight 130.[address] Kayleigh Singleton Work Phone: [facility] 03-14-2023 16:21-0400 Diastolic blood pressure 72 mm[Hg] Dr. Kayleigh Singleton Work Phone: [facility] 03-14-2023 16:21-0400 Heart rate 115 /min Dr. Kayleigh Singleton Work Phone: [facility] 03-14-2023 16:21-0400 Respiratory rate 16 /min Dr. Kayleigh Singleton Work Phone: [facility] 03-14-2023 16:21-0400 SaO2% (BldA) [Mass fraction] 95 % Dr. Kayleigh Singleton Work Phone: [facility] 03-14-2023 16:21-0400 Systolic blood pressure 104 mm[Hg] Dr. Kayleigh Signleton Work Phone: [facility] 12-20-2022 16:04-0400 Body height 190.[address] Kayleigh Singleton Work Phone: [facility] 12-20-2022 16:04-0400 Body mass index (BMI) [Ratio] 36.7 kg/m2 Dr. Kayleigh Singleton Work Phone: [facility] 12-20-2022 16:04-0400 Body temperature 98.2 [degF] Dr. Kayleigh Singleton Work Phone: [facility] 12-20-2022 16:04-0400 Body weight 133.[address] Kayleigh Singleton Work Phone: [facility] 12-20-2022 16:04-0400 Diastolic blood pressure 82 mm[Hg] Dr. Kayleigh Singleton Work Phone: [facility] 12-20-2022 16:04-0400 Heart rate 120 /min Dr. Kayleigh Singleton Work Phone: [facility] 12-20-2022 16:04-0400 Respiratory rate 16 /min Dr. Kayleigh Singleton Work Phone: [facility] 12-20-2022 16:04-0400 SaO2% (BldA) [Mass fraction] 98 % Dr. Kayleigh Singleton Work Phone: [facility] 12-20-2022 16:04-0400 Systolic blood pressure 120 mm[Hg] Dr. Kayleigh Singleton Work Phone: [facility] 11-22-2022 15:58-0400 Body height 190.[address] Kayleigh Singleton Work Phone: [facility] 08-22-2022 12:44-0500 Body temperature 97.4 [degF] Dr. Kayleigh Singleton Work Phone: [facility] 08-22-2022 12:44-0500 Diastolic blood pressure 61 mm[Hg] Dr. Kayleigh Singleton Work Phone: [facility] 08-22-2022 12:44-0500 Heart rate 67 /min Dr. Kayleigh Singleton Work Phone: [facility] 08-22-2022 12:44-0500 Respiratory rate 16 /min Dr. Kayleigh Singleton Work Phone: [facility] 08-22-2022 12:44-0500 SaO2% (BldA) [Mass fraction] 98 % Dr. Kayleigh Singleton Work Phone: [facility] 08-22-2022 12:44-0500 Systolic blood pressure 89 mm[Hg] Dr. Kayleigh Singleton Work Phone: [facility] 08-22-2022 11:15-0500 Inhaled oxygen flow rate 3 L/min Dr. Kayleigh Singleton Work Phone: [facility] 08-22-2022 07:10-0500 Body mass index (BMI) [Ratio] 35.2 kg/m2 Dr. Kayleigh Singleton Work Phone: [facility] 08-22-2022 07:10-0500 Body weight [address] Kayleigh Singleton Work Phone: [facility] 08-09-2022 14:19-0500 Body mass index (BMI) [Ratio] 36.3 kg/m2 Dr. Kayleigh Singleton Work Phone: [facility] 08-09-2022 14:19-0500 Body weight 132.[address] Kayleigh Singleton Work Phone: [facility] 08-09-2022 14:19-0500 Diastolic blood pressure 78 mm[Hg] Dr. Kayleigh Singleton Work Phone: [facility] 08-09-2022 14:19-0500 Heart rate 112 /min Dr. Kayleigh Singleton Work Phone: [facility] 08-09-2022 14:19-0500 Respiratory rate 16 /min Dr. Kayleigh Singleton Work Phone: [facility] 08-09-2022 14:19-0500 Systolic blood pressure 116 mm[Hg] Dr. Kayleigh Singleton Work Phone: [facility] 07-17-2022 10:04-0500 Body temperature 97.9 [degF] Anya Fiordaliza TIN RECOVERY WORKER.SHREDDER TENDER Work Phone: [facility] 07-17-2022 10:04-0500 Body weight 132 kg Anya Fiordaliza TIN RECOVERY WORKER.SHREDDER TENDER Work Phone: [facility] 07-17-2022 10:04-0500 Diastolic blood pressure 86 mm[Hg] Anya Fiordaliza TIN RECOVERY WORKER.SHREDDER TENDER Work Phone: [facility] 07-17-2022 10:04-0500 Heart rate 98 /min Anya Fiordaliza TIN RECOVERY WORKER.SHREDDER TENDER Work Phone: [facility] 07-17-2022 10:04-0500 Respiratory rate 16 /min Anya Fiordaliza TIN RECOVERY WORKER.SHREDDER TENDER Work Phone: [facility] 07-17-2022 10:04-0500 SaO2% (BldA) [Mass fraction] 97 % Anya Fiordaliza TIN RECOVERY WORKER.SHREDDER TENDER Work Phone: [facility] 07-17-2022 10:04-0500 Systolic blood pressure 132 mm[Hg] Anya Fiordaliza TIN RECOVERY WORKER.SHREDDER TENDER Work Phone: [facility] 07-10-2022 16:20-0500 Body temperature 97.6 [degF] Dr. Kayleigh Singleton Work Phone: [facility] Work Phone: 07-10-2022 16:20-0500 Diastolic blood pressure 86 mm[Hg] Dr. Kayleigh Singleton Work Phone: [facility] Work Phone: 07-10-2022 16:20-0500 Heart rate 109 /min Dr. Kayleigh Singleton Work Phone: [facility] Work Phone: 07-10-2022 16:20-0500 Respiratory rate 14 /min Dr. Kayleigh Singleton Work Phone: [facility] Work Phone: 07-10-2022 16:20-0500 SaO2% (BldA) [Mass fraction] 99 % Dr. Kayleigh Singleton Work Phone: [facility] Work Phone: 07-10-2022 16:20-0500 Systolic blood pressure 130 mm[Hg] Dr. Kayleigh Singleton Work Phone: [facility] Work Phone: 06-03-2022 09:02-0400 Body temperature 97.2 [degF] Lillian Bermudez APRN.SHREDDER TENDER Work Phone: [facility] 06-03-2022 09:02-0400 Body weight 133.27 kg Lillian Bermudez APRN.SHREDDER TENDER Work Phone: [facility] 06-03-2022 09:02-0400 Diastolic blood pressure 84 mm[Hg] Lillian Bermudez APRN.SHREDDER TENDER Work Phone: [facility] 06-03-2022 09:02-0400 Heart rate 103 /min Lillian Bermudez APRN.SHREDDER TENDER Work Phone: [facility] 06-03-2022 09:02-0400 Respiratory rate 20 /min Lillian Bermudez APRN.SHREDDER TENDER Work Phone: [facility] 06-03-2022 09:02-0400 SaO2% (BldA) [Mass fraction] 97 % Lillian Bermudez APRN.SHREDDER TENDER Work Phone: [facility] 06-03-2022 09:02-0400 Systolic blood pressure 122 mm[Hg] Lillian Bermudez APRN.SHREDDER TENDER Work Phone: [facility] 04-09-2022 08:04-0400 Body height 190.[address] Kayleigh Singleton Work Phone: [facility] Work Phone: 04-09-2022 08:04-0400 Body mass index (BMI) [Ratio] 35.6 kg/m2 Dr. Kayleigh Singleton Work Phone: [facility] Work Phone: 04-09-2022 08:04-0400 Body weight 129.[address] Kayliegh Singleton Work Phone: [facility] Work Phone: 03-31-2022 10:34-0400 Body temperature 98 [degF] Dr. Kayleigh Singleton Work Phone: [facility] Work Phone: 03-31-2022 10:34-0400 Diastolic blood pressure 82 mm[Hg] Dr. Kayleigh Singleton Work Phone: [facility] Work Phone: 03-31-2022 10:34-0400 Heart rate 88 /min Dr. Kayleigh Singleton Work Phone: [facility] Work Phone: 03-31-2022 10:34-0400 Respiratory rate 14 /min Dr. Kayleigh Singleton Work Phone: [facility] Work Phone: 03-31-2022 10:34-0400 SaO2% (BldA) [Mass fraction] 96 % Dr. Kayleigh Singleton Work Phone: [facility] Work Phone: 03-31-2022 10:34-0400 Systolic blood pressure 156 mm[Hg] Dr. Kayleigh Singleton Work Phone: [facility] Work Phone: 03-27-2022 11:26-0400 Body height 190.[address] Kayleigh Singleton Work Phone: [facility] Work Phone: 03-23-2022 11:40-0400 Body temperature 97.9 [degF] Dr. Kayleigh Singleton Work Phone: [facility] Work Phone: 03-23-2022 11:40-0400 Diastolic blood pressure 90 mm[Hg] Dr. Kayleigh Singleton Work Phone: [facility] Work Phone: 03-23-2022 11:40-0400 Heart rate 85 /min Dr. Kayleigh Singleton Work Phone: [facility] Work Phone: 03-23-2022 11:40-0400 Respiratory rate 16 /min Dr. Kayleigh Singleton Work Phone: [facility] Work Phone: 03-23-2022 11:40-0400 SaO2% (BldA) [Mass fraction] 94 % Dr. Kayleigh Singleton Work Phone: [facility] Work Phone: 03-23-2022 11:40-0400 Systolic blood pressure 132 mm[Hg] Dr. Kayleigh Singleton Work Phone: [facility] Work Phone: 03-23-2022 11:35-0400 Inhaled oxygen flow rate 2 L/min Dr. Kayleigh Singleton Work Phone: [facility] Work Phone: 03-23-2022 10:10-0400 Body height 190.[address] Kayleigh Singleton Work Phone: [facility] Work Phone: 03-23-2022 10:10-0400 Body mass index (BMI) [Ratio] 34.9 kg/m2 Dr. Kayleigh Singleton Work Phone: [facility] Work Phone: 03-23-2022 10:10-0400 Body weight [address] Kayeligh Singleton Work Phone: [facility] Work Phone: 12-29-2021 10:47-0400 Body mass index (BMI) [Ratio] 36.2 kg/m2 Dr. Kayleigh Singleton Work Phone: [facility] Work Phone: 12-29-2021 10:47-0400 Body weight 131.[address] Kayleigh Singleton Work Phone: [facility] Work Phone: 12-06-2021 16:08-0400 Body mass index (BMI) [Ratio] 36.4 kg/m2 Dr. Kayleigh Singleton Work Phone: [facility] Work Phone: 12-06-2021 16:08-0400 Body temperature 97.7 [degF] Dr. Kayleigh Singleton Work Phone: [facility] Work Phone: 12-06-2021 16:08-0400 Body weight 132.[address] Kayleigh Singleton Work Phone: [facility] Work Phone: 12-06-2021 16:08-0400 Diastolic blood pressure 72 mm[Hg] Dr. Kayleigh Singleton Work Phone: [facility] Work Phone: 12-06-2021 16:08-0400 Heart rate 97 /min Dr. Kayleigh Singleton Work Phone: [facility] Work Phone: 12-06-2021 16:08-0400 Respiratory rate 16 /min Dr. Kayleigh Singleton Work Phone: [facility] Work Phone: 12-06-2021 16:08-0400 SaO2% (BldA) [Mass fraction] 96 % Dr. Kayleigh Singleton Work Phone: [facility] Work Phone: 12-06-2021 16:08-0400 Systolic blood pressure 122 mm[Hg] Dr. Kayleigh Singleton Work Phone: [facility] Work Phone: Encounters Encounter Date Encounter Type Care Provider Facility Start: 01-27-2025 ambulatory Kayleigh Singleton [facility] ty:[facility] Start: 01-22-2025 End: 01-22-[address] Elliot Trevino MD -[facility] Work Phone: Start: 01-22-2025 End: 01-22-[address] Kayleigh Singleton MD Work Phone: [facility] Work Phone: Start: 01-08-2025 End: 01-08-[address] Kayleigh Singleton MD -[facility] Work Phone: Start: 01-08-2025 End: 01-08-[address] Kayleigh Singleton MD Work Phone: [facility] Work Phone: Start: 01-08-2025 End: 01-08-2025 ambulatory Kayleigh Singleton Facility:[facility] Start: 01-05-2025 End: 01-05-2025 ambulatory ARNALDOEMIR [facility] Start: 01-05-2025 End: 01-05-2025 Office outpatient visit 25 minutes Zoltan Rocha MD Work Phone: [facility] - [place] Comment on above: RLS (restless legs s yndrome) (Primary Dx); PO (obstructive sleep apnea); Vitamin D deficiency Start: 11-30-2024 End: 11-30-2024 Refill Zoltan Rocha MD Work Phone: [facility] [place] Comment on above: RLS (restless legs s yndrome) Start: 11-27-2024 End: 11-27-2024 Telephone encounter Zoltan Rocha MD Work Phone: [facility] [place] Comment on above: Cpap Start: 11-23-2024 End: 11-23-2024 Office outpatient visit 25 minutes Zoltan Rocha MD Work Phone: [facility] [place] Comment on above: RLS (restless legs s yndrome) (Primary Dx); PO (obstructive sleep apnea); Class 2 obesity in adult, unspecified BMI, unspecified obesity type, unspecified whether serious comorbidity present Start: 11-23-2024 End: 11-23-2024 ambulatory KAYLEIGH [facility] Start: 11-09-2024 End: 12-23-2024 Telephone encounter Zoltan Rocha MD Work Phone: [facility] [place] Comment on above: Appointment Start: 10-09-2024 End: 10-09-2024 Patient encounter procedure Jonathan EVANS -[facility] Work Phone: Start: 10-09-2024 End: 10-09-2024 ambulatory Jonathan EVANS [place] [place]: 10-05-2024 End: 10-05-[address] Kayleigh Singleton MD -[facility] Work Phone: Start: 10-05-2024 End: 10-05-[address] Kayleigh Singleton MD Work Phone: [facility] Work Phone: Start: 10-05-2024 End: 10-05-2024 ambulatory Kayleigh Singleton Facility:[facility] Start: 09-24-2024 End: 09-24-2024 Office outpatient new 60 minutes Zoltan Rocha MD Work Phone: [facility] [place] Comment on above: RLS (restless legs s yndrome) (Primary Dx); PO (obstructive sleep apnea); Class 2 obesity in adult, unspecified BMI, unspecified obesity type, unspecified whether serious comorbidity present Start: 09-24-2024 End: 09-24-2024 ambulatory [facility] Start: 08-10-2024 End: 08-10-2024 Telephone encounter Zoltan Rocha MD Work Phone: [facility] [place] Comment on above: Other (Sleep Med Ref erral) Start: 07-06-2024 End: 07-06-[address] Kayleigh Singleton MD -[facility] Work Phone: Start: 07-06-2024 End: 07-06-[facility] [place]: 03-30-2024 End: 03-30-2024 [facility] Start: 03-30-2024 End: 03-30-2024 ambulatory [facility] Facility:[facility] Start: 03-27-2024 End: 03-27-2024 ambulatory [facility] Facility:[facility] Start: 02-24-2024 End: 02-24-2024 [facility] Start: 02-12-2024 End: 02-12-[facility] Start: 02-12-2024 End: 02-12-2024 [facility] Start: 09-25-2023 End: 09-25-[address] Kayleigh Singleton Work Phone: [facility] Work Phone: Start: 09-25-2023 End: 09-25-[address] Kayleigh Singleton Work Phone: [facility] Work Phone: Start: 09-17-2023 End: 09-17-[address] Kayleigh Singleton Work Phone: [facility] Work Phone: Start: 09-17-2023 End: 09-17-[address] Kayleigh Singleton Work Phone: [facility] Work Phone: Start: 09-10-[address] Aric Singleton Work Phone: [facility]-Occupational Therapy Work Phone: Start: 08-19-2023 End: 08-19-[address] Kayleigh Singleton Work Phone: [facility] Work Phone: Start: 08-19-2023 End: 08-19-[address] Kayleigh Singleton Work Phone: [facility]-Laboratory, Specimen Work Phone: Start: 08-15-[address] Aric Singleton Work Phone: [facility]-Occupational Therapy Work Phone: Start: 08-13-2023 End: 08-13-[address] Kayleigh Singleton Work Phone: [facility] Work Phone: Start: 07-15-2023 End: 07-15-[address] Kayleigh Singleton Work Phone: [facility] Work Phone: Start: 07-09-[address] Aric Singleton Work Phone: [facility]-Occupational Therapy Work Phone: Start: 07-08-2023 Non-patient / Non-visit Dr. Kayleigh Singleton Work Phone: [facility] Start: 07-08-2023 End: 07-09-[address] Kayleigh Singleton Work Phone: [facility] Work Phone: Start: 07-08-2023 End: 07-09-[address] [facility] Work [facility]: Start: 06-24-2023 Non-patient / Non-visit Dr. Kayleigh Singleton Work Phone: [facility] Start: 06-24-2023 End: 06-24-[address] Kayleigh Singleton Work Phone: [facility] Work Phone: Start: 06-19-2023 End: 06-19-[address] Kayleigh Singleton Work Phone: [facility] Work Phone: Start: 06-10-2023 End: 06-10-[address] Kayleigh Singleton Work Phone: [facility] Work Phone: Start: 06-10-2023 Non-patient / Non-visit Dr. Kayleigh Singleton Work Phone: [facility] Start: 06-10-2023 End: 06-11-[address] Kayleigh Singleton Work Phone: [facility] Work Phone: Start: 06-10-2023 End: 06-11-[address] Kayleigh Singleton Work Phone: [facility] Work Phone: Start: 06-03-2023 Non-patient / Non-visit Dr. Kayleigh Singleton Work Phone: [facility] Start: 06-03-2023 End: 06-03-[address] Kayleigh Singleton Work Phone: [facility] Work Phone: Start: 06-03-[address] Aric Singleton Work Phone: [facility] Work Phone: Start: 05-30-2023 End: 05-30-[address] Kayleigh Singleton Work Phone: [facility] Work Phone: Start: 05-30-2023 End: 05-30-[address] Kayleigh Singleton Work Phone: [facility]-Laboratory Work Phone: Start: 05-30-2023 End: 05-30-[address] Kayleigh Singleton Work Phone: [facility] Work Phone: Start: 05-28-2023 End: 05-28-[address] Kayleigh Singleton Work Phone: [facility] Work Phone: Start: 05-23-2023 End: 05-23-[address] Kayleigh Singleton Work Phone: [facility] Work Phone: Start: 05-10-2023 End: 05-10-[address] Kayleigh Singleton Work Phone: [facility] Work Phone: Start: 05-08-2023 End: 05-08-2023 Admission to same day surgery center Dr[facility] Kayleigh Singleton [facility] Start: 05-08-2023 Non-patient / Non-visit Dr. Kayleigh Singleton Work Phone: [facility] Start: 05-08-2023 End: 05-08-2023 Admission to same day surgery center [facility] Kayleigh [facility] Start: 04-03-2023 End: 04-03-2023 Emergency department patient visit REMI MCLEAN MD Facility:[facility] Start: 04-03-2023 End: 04-03-2023 Emergency department patient visit REMI MCLEAN MD [facility] Start: 03-26-2023 End: 03-26-[address] Kayleigh Singleton Work Phone: [facility] Work Phone: Start: 03-22-2023 End: 03-22-[address] Kayleigh Singleton Work Phone: [facility] Work Phone: Start: 03-21-2023 End: 03-21-[address] Kayleigh Singleton Work Phone: [facility] Work Phone: Start: 03-21-2023 End: 03-21-[address] Kayleigh Singleton Work Phone: [facility] Work Phone: Start: 03-14-2023 End: 03-14-[address] Kayleigh Singleton Work Phone: [facility] Work Phone: Start: 03-14-2023 End: 03-14-[address] Kayleigh Singleton Work Phone: [facility] Work Phone: Start: 03-14-2023 End: 03-14-[address] Kayleigh Singleton Work Phone: [facility]-Laboratory Work Phone: Start: 02-28-2023 End: 02-28-[address] Kayleigh Singleton Work Phone: [facility] Work Phone: Start: 02-28-2023 End: 02-28-[address] Kayleigh Singleton Work Phone: [facility] Work Phone: Start: 02-06-2023 End: 02-06-[address] Kayleigh Singleton Work Phone: [facility] Work Phone: Start: 02-06-2023 End: 02-06-[address] Kayleigh Singleton Work Phone: [facility]-Sleep Lab Work Phone: Start: 02-04-2023 End: 02-04-[address] Kayleigh Singleton Work Phone: [facility] Work Phone: Start: 02-04-2023 End: 02-04-[address] Kayleigh Singleton Work Phone: [facility]-Occupational Therapy Work Phone: Start: 01-31-2023 End: 01-31-[address] Kayleigh Singleton Work Phone: [facility] Work Phone: Start: 01-19-2023 End: 01-19-[address] Kayleigh Singleton Work Phone: [facility] [facility], [facility] Work Phone: Start: 01-18-2023 End: 01-18-[address] Kayleigh Singleton Work Phone: [facility]-Sleep Lab Work Phone: Start: 01-03-2023 End: 01-03-[address] Kayleigh Singleton Work Phone: [facility] Work Phone: Start: 12-20-2022 End: 12-20-[address] Kayleigh Singleton Work Phone: [facility] Work Phone: Start: 12-20-2022 End: 12-20-[address] Kayleigh Singleton Work Phone: [facility] Work Phone: Start: 12-07-2022 End: 12-07-[address] Kayleigh Singleton Work Phone: [facility] Work Phone: Start: 11-23-2022 End: 11-23-[address] Kayleigh Singleton Work Phone: [facility] Work Phone: Start: 11-23-2022 End: 11-23-[address] Kayleigh Singleton Work Phone: [facility]-Laboratory, Specimen Start: 11-23-2022 End: 11-23-[address] Kayleigh Singleton Work Phone: [facility] Start: 11-19-2022 End: 11-19-[address] Kayleigh Singleton Work Phone: [facility] Start: 11-15-[address] Aric Singleton Work Phone: [facility]-Occupational Therapy Start: 10-22-2022 End: 10-22-[address] Kayleigh Singleton Work Phone: [facility] Start: 09-28-2022 End: 09-28-[address] Kayleigh Singleton Work Phone: [facility] Start: 09-14-2022 End: 09-14-[address] Kayleigh Singleton Work Phone: [facility] Start: 09-13-2022 End: 09-13-[address] Kayleigh Singleton Work Phone: [facility] Start: 08-31-2022 End: 08-31-[address] Kayleigh Singleton Work Phone: [facility] Start: 08-24-2022 End: 08-24-[address] Kayleigh Singleton Work Phone: [facility] Start: 08-22-2022 Non-patient / Non-visit Dr. Kayleigh Singleton Work Phone: [facility] Start: 08-22-2022 End: 08-22-2022 Admission to same day surgery center Dr. Kayleigh Singleton Work Phone: [facility]-Surgical Day Care Start: 08-09-[address] Kayleigh Singleton Work Phone: [facility] Start: 08-09-2022 End: 08-09-2022 Admission to same day surgery center Dr. Kayleigh Singleton Work Phone: [facility] Start: 08-09-2022 End: 08-09-[address] Kayleigh Singleton Work Phone: [facility] Start: 07-19-2022 End: 07-19-[address] Kayleigh Singleton Work Phone: [facility] Work Phone: Start: 07-19-2022 End: 07-19-[address] Kayleigh Singleton Work Phone: [facility]-Laboratory, Specimen Start: 07-17-2022 End: 07-17-2022 ambulatory KAYLEIGH SINGLETON Facility:[facility] Start: 07-17-2022 End: 07-17-2022 Patient encounter procedure Anya Mancera APRN.CNP Work Phone: [facility] Comment on above: Sore throat (Primary Dx); URI with cough and congestion Start: 07-10-2022 End: 07-10-[address] Kayleigh Singleton Work Phone: [facility] Start: 06-22-2022 End: 06-22-[address] Kayleigh Singleton Work Phone: [facility] Start: 06-08-2022 End: 06-08-[address] Kayleigh Singleton Work Phone: [facility] Start: 06-08-2022 End: 06-08-[address] Kayleigh Singleton Work Phone: [facility] Work Phone: Start: 06-08-2022 End: 06-08-[address] Kayleigh Singleton Work Phone: [facility]-Occupational Therapy Start: 06-04-2022 End: 06-04-[address] [facility] JEANALEISHA Facility:[facility] Start: 06-04-2022 End: 06-04-2022 Subsequent hospital visit by physician [facility] Work Phone: Radiology Comment on above: Acute cough [R05.1] Start: 06-03-2022 End: 06-03-2022 [facility] JEANALE[facility]ania Facility:[facility] Start: 06-03-2022 End: 06-03-2022 Patient encounter procedure Lillian Bermudez APRN.SHREDDER TENDER Work Phone: [facility] Comment on above: Acute cough (Primary Dx) Start: 05-07-2022 End: 05-07-[address] Kayleigh Singleton Work Phone: [facility] Start: 04-20-2022 End: 04-20-[address] Kayleigh Singleton Work Phone: [facility] Start: 04-18-2022 End: 04-18-[address] Kayleigh Singleton Work Phone: [facility] Work Phone: Start: 04-18-2022 End: 04-18-[address] Kayleigh Singleton Work Phone: [facility] Start: 04-09-2022 End: 04-09-[address] Kayleigh Singleton Work Phone: [facility] Start: 03-31-2022 End: 03-31-[address] Kayleigh Singleton Work Phone: [facility] Start: 03-27-2022 End: 03-27-[address] Kayleigh Singleton Work Phone: [facility] Start: 03-23-2022 Non-patient / Non-visit Dr. Kayleigh Singleton Work Phone: [facility] Start: 03-23-2022 End: 03-23-2022 Admission to same day surgery center Dr. Kayleigh Singleton Work Phone: [facility]-Endoscopy Start: 12-29-2021 Non-patient / Non-visit Dr. Kayleigh Singleton Work Phone: [facility] Start: 12-06-[address] Kayleigh Snigleton Work Phone: [facility] Start: 12-06-2021 End: 12-06-2021 Encounter for general adult medical examination without abnormal findings Dr. Kayleigh Singleton Work Phone: [facility] Start: 12-06-2021 End: 12-06-[address] Kayleigh Singleton Work Phone: [facility] Start: 12-19-2017 End: 12-19-2017 Ambulatory JONATHAN EVANS [facility] Start: 12-04-2017 End: 12-05-2017 Ambulatory JONATHAN EVANS [facility] Start: 11-20-2017 End: 11-20-2017 Ambulatory JONATHAN EVANS [facility] Start: 11-12-2017 End: 11-12-2017 Emergency department patient visit IRVING DENSON [facility] Start: 10-30-2017 End: 10-30-2017 Ambulatory JONATHAN EVANS [facility] Start: 10-23-2017 End: 10-23-2017 Ambulatory JONATHAN EVANS [facility] Start: 04-04-2017 Ambulatory ROE CREWS) [facility] Procedures Date Procedure Procedure Detail Performing Clinician Start: 01-05-2025 Follow-up visit Follow-up ZOLTAN HICKS Start: 11-23-2024 Cyanocobalamin vitamin b-12 Zoltan Rocha MD Work Phone: Start: 11-23-2024 Thyrotropin [Units/v olume] in Serum or Plasma Zoltan Rocha MD Work Phone: Start: 10-05-2024 Measurement of renal function Dr. Kayleigh Singleton MD Work Phone: Comment on above: GFR Calc Start: 09-25-2023 Plain chest X-ray Dr. Stefania Singleton Work Phone: Start: 08-19-2023 Investigation of tra nsfusion reaction Dr. Kayleigh Singleton Work Phone: Start: 08-19-[address] Kayleigh Singleton Work Phone: Start: 05-30-2023 Investigation of tra nsfusion reaction Dr. Kayleigh Singleton Work Phone: Start: 05-08-[address] Kayleigh Singleton Work Phone: Start: 05-08-[address] Kayleigh Singleton Work Phone: Start: 05-08-2023 Investigation of tra nsfusion reaction Dr. Kayleigh Singleton Work Phone: Start: 05-08-2023 Microbial culture, routine Dr. Kayleigh Singleton Work Phone: Start: 05-08-[address] Mckenzie Singleton Work Phone: Start: 05-08-2023 Transpostition, Ulna r Nerve (Right) Dr. Kayleigh Singleton Work Phone: Start: 03-22-2023 Plain x-ray of hand Dr. Kayleigh Singleton Work Phone: Start: 03-21-2023 MRI of joint of lowe r extremity Dr. Kayleigh Singleton Work Phone: Start: 02-28-2023 Plain x-ray of elbow Dr Stephen Singleton Work Phone: Start: 01-19-[address] Kayleigh Singleton Work Phone: Start: 11-23-[address] Kayleigh Singleton Work Phone: Start: 11-23-[address] Stefania Singleton Work Phone: Start: 11-23-2022 Investigation of tra nsfusion reaction Dr. Kayleigh Singleton Work Phone: Start: 09-13-2022 MRI of joint of lowe r extremity Dr. Kayleigh Singleton Work Phone: Start: 07-17-2022 STREP A MOLECULAR (POC) Anya Mancera APRN.SHREDDER TENDER Work Phone: Start: 06-04-2022 Radiologic exam ches t 2 views Lillian Bermudez APRN.SHREDDER TENDER Work Phone: Start: 04-18-2022 MRI of joint of lowe r extremity Dr. Kayleigh Singleton Work Phone: Start: 03-27-2022 Plain x-ray of elbow Dr Stephen Singleton Work Phone: Start: 03-23-[address] Molina Singleton Work Phone: Start: 09-19-2016 Lipid 1996 panel - S masha or Plasma Xr Sukhwinder Work Phone: Anaerobic microbial culture Dr. Kayleigh Singleton Work Phone: Bacterial culture Dr. Molina Singleton Work Phone: Plan of Treatment Date Care Activity Detail Author Start: 2050 RSV Immunization for Adults (1 - 1-dose 75+ series) RSV Immunization for Adults (1 - 1-dose 75+ series) [facility] Start: 04-12-2025 Influenza vaccination Influenz a Vaccine (Season Ended) [facility] Start: 2025 Zoster Vaccines (1 of 2) Zoste r Vaccines (1 of 2) [facility] Start: 03-11-2025 End: 03-11-2025 Patient encounter procedure 03/11/2025 3:30 PM EDT [facility] [address] [place] [address] Zoltan Rocha MD [address] [place] [address] [facility] Start: 01-08-2025 Comprehensive metabo lic 2000 panel - Serum or Plasma [facility] Start: 01-08-[address] [facility] Start: 01-05-2025 End: 01-05-2025 Patient encounter procedure 01/05/2025 2:30 PM EDT [facility] [address] [place] [address] Zoltan Rocha MD [address] [place] [address] [facility] Start: 11-23-2024 End: 11-23-2024 Patient encounter procedure 11/23/2024 10:30 AM EDT [facility] [address] [place] [address] Zoltan Rocha MD [address] [place] [address] [facility] Start: 09-24-2024 End: 09-24-2024 Patient encounter procedure 09/24/2024 11:00 AM EST [facility] [address] [place] [address] Zoltan Rocha MD [address] [place] [address] [facility] Start: 04-12-2024 Covid-19 Vaccine ( season) Covid-19 Vaccine ( season) [facility] Start: 04-12-2024 Influenza vaccination Influenza Vacc ine (#1) [facility] Start: 06-24-2023 Patient referral [facility] Work Phone: Start: 05-30-2023 Patient referral [facility] Work Phone: Start: 05-08-2023 Anesthesia open teno jaison elbow to shoulder ANESTH UPPR ARM TENDON SURG [facility] Start: 05-08-2023 Tnot elbow lateral/m edial debride open tdn rpr REPAIR ELBOW RUPESH/ATTCH OPEN [facility] Start: 05-08-2023 Patient discharge [facility] Start: 05-08-2023 Notification of physician [facility] Start: 05-08-2023 Assessment of risk o f venous thromboembolism [facility] Start: 05-08-2023 Catheterization of vein [facility] Start: 05-08-2023 Deep breathing and coughing exercises [facility] Start: 05-08-2023 Following clinical p athway protocol [facility] Start: 05-08-2023 Incentive spirometry [facility] Start: 05-08-2023 Introduction of urin jose catheter [facility] Start: 05-08-2023 Patient education [facility] Start: 05-08-2023 Taking patient vital signs [facility] Start: 05-08-2023 Vital signs measurements [facility] Start: 05-08-2023 End: 05-08-2023 [facility] Start: 05-08-2023 Medication education [facility] Start: 05-08-2023 Patient discharge [facility] Start: 09-28-2022 Patient referral [facility] Work Phone: Start: 08-22-2022 Anes open/surg arthroscopic elbow proc nos ANESTH UPPER ARM SURGERY [facility] Start: 08-22-2022 Arthroscopy elbow barboza rgical debridement limited ELBOW ARTHROSCOPY/SURGERY [facility] Start: 08-22-2022 Repair tendon/muscle upper arm/elbow ea RPR TDN/MUSC UPR A/E EACH [facility] Start: 08-22-2022 Notification of physician [facility] Start: 08-22-2022 Catheterization of vein [facility] Start: 08-22-2022 Elevation of affecte d extremity [facility] Start: 08-22-2022 Following clinical p athway protocol [facility] Start: 08-22-2022 Procedure discontinued [facility] Start: 08-22-2022 Provision of activit y privileges [facility] Start: 08-22-2022 Taking patient vital signs [facility] Start: 08-22-2022 Vital signs measurements [facility] Start: 08-22-2022 [facility] Start: 08-22-2022 Medication education [facility] Start: 08-22-2022 Patient discharge [facility] Start: 07-17-2022 End: 07-31-2022 Influenza virus A and B RNA and SARS-CoV-2 (COVID-19) N gene panel - Respiratory specimen by DANGELO with probe detection COVID WITH FLUA+B, ROUTINE Microbiology Routine URI with cough and congestion Expected: 07/17/2022, Expires: 07/31/2022 [facility] Work Phone: Comment on above: Expected: 07/17/2022 , Expires: 07/31/2022 Start: 06-03-2022 End: 07-03-2023 Radiologic exam chest 2 views XR CHEST 2V FRONTAL/LAT Radiology STAT Acute cough Expected: 06/03/2022, Expires: 07/03/2023 [facility] Work Phone: Comment on above: Expected: 06/03/2022 , Expires: 07/03/2023 Start: 04-20-2022 Patient referral [facility] Work Phone: Start: 04-12-2022 Influenza vaccination INFLUENZA (#1) [facility] Start: 03-31-2022 Patient referral [facility] Work Phone: Start: 03-23-2022 Colonoscopy flx dx w /collj spec when pfrmd DIAGNOSTIC COLONOSCOPY [facility] Work Phone: Start: 03-23-2022 Patient discharge [facility] Work Phone: Start: 12-06-2021 Patient referral [facility] Work Phone: Start: 09-19-2021 Lipid panel Lipid Screening [facility] Start: 09-19-2021 LIPID SCREEN LIPID SCREEN [facility] Start: 08-12-2021 DEPRESSION ASSESSMENT DEPRESSION ASS ESSMENT [facility] Start: 03-20-2020 DIABETES SCREEN DIABETES SCREEN [facility] Start: 03-20-2020 Diabetes Screening Diabetes Screenin g [facility] Start: 2020 COLOGUARD (FIT-DNA) COLOGUARD (FIT-D NA) [facility] Start: 2020 Colonoscopy COLONOSCOPY [facility] Start: 2020 COLORECTAL CANCER SCREENING COLORECTAL CANCER SCREENING [facility] Start: [address] COLONOGRAPHY [facility] Start: 2020 FECAL OCCULT BLOOD FECAL OCCULT BLOO D [facility] Start: 2020 Screening for malign ant neoplasm of colon [facility] Start: 2020 SIGMOIDOSCOPY SIGMOIDOSCOPY [facility] Start: 1994 DTaP/Tdap/Td Vaccine s (1 - Tdap) DTaP/Tdap/Td Vaccines (1 - Tdap) [facility] Start: 1994 Hepatitis A Vaccines (1 of 2 - Risk 2-dose series) Hepatitis A Vaccines (1 of 2 - Risk 2-dose series) [facility] Start: 1994 Hepatitis B Vaccine (1 of 3 - 19+ 3-dose series) Hepatitis B Vaccine (1 of 3 - 19+ 3-dose series) [facility] Start: 1994 Hepatitis B Vaccines (1 of 3 - 19+ 3-dose series) Hepatitis B Vaccines (1 of 3 - 19+ 3-dose series) [facility] Start: 1994 Urine microalbumin profile [facility] Start: 1993 ANNUAL PCP TEAM MANAGER PMO GORAN DISEASE VISIT ANNUAL PCP TEAM CHRONIC DISEASE VISIT [facility] Start: 1993 Anxiety Screening Anxiety Screening [facility] Start: 1993 BP CONTROLLED (<130/80) BP CONTROLLE D (<130/80) [facility] Start: 1993 Depression Screening Depression Scre ening [facility] Start: 1993 Diabetes: Estimated Glomerular Filtration Rate for Kidney [facility] Diabetes: Estimated Glomerular Filtration Rate for Kidney Health [facility] Start: 1993 Diabetes: Urine Albumin-Creatinine Ratio for Kidney [facility] Diabetes: Urine Albumin-Creatinine Ratio for Kidney Health [facility] Start: 1993 HEPATITIS C SCREENING HEPATITIS C [facility] Start: 1993 Hepatitis C screening Hepatitis C [facility] Start: 1993 HIV SCREENING HIV SCREENING [facility] Start: 1993 HIV screening HIV Screening [facility] Start: 1987 Depression Screening Depression Scre ing [facility] Start: 1985 Diabetic foot examination Diabetes: Foot Exam [facility] Start: 1985 Glaucoma screening Diabetes: R etinopathy Screening [facility] Start: 1985 Preventive dental service Diabetes: Dental Exam [facility] Start: 1976 MMR Vaccines (1 of 1 - Standard series) MMR Vaccines (1 of 1 - Standard series) [facility] Start: 1975 COVID-19 VACCINE (#1) COVID-19 VACCI NE (#1) [facility] Start: 1975 Hemoglobin A1c measurement Lelo betes: Hemoglobin A1C [facility] Start: 1975 HEPATITIS B (1 of 3 - 3-dose series) HEPATITIS B (1 of 3 - 3-dose series) [facility] Start: 1975 HIV screening HIV Screening [facility] Start: 1975 Lipid panel Lipid Panel [facility] Start: 1975 Screening for malign ant neoplasm of colon [facility] Alanine aminotransfe rase [Enzymatic activity/volume] in Serum or Plasma [facility] Albumin [Mass/volume ] in Serum or Plasma [facility] Alkaline phosphatase [Enzymatic activity/volume] in Serum or Plasma [facility] Anion gap in Serum o r Plasma [facility] Bilirubin, total measurement [facility] BUN/Creatinine ratio [facility] Calcium [Mass/volume ] in Serum or Plasma [facility] Carbon dioxide, tota l [Moles/volume] in Central venous blood [facility] CBC W Auto Different ial panel - Blood [facility] Work Phone: Colonoscopy [facility] Work Phone: Creatinine [Mass/vol ume] in Serum or Plasma [facility] Glucose [Mass/volume ] in Serum or Plasma [facility] Hemoglobin A1c/Hemoglobin.total in Blood [facility] Work Phone: Lipid 1996 panel - S masha or Plasma [facility] Work Phone: Measurement of renal function [facility] Patient referral [facility] Work Phone: Potassium measurement [facility] Serum chloride measurement [facility] Sodium measurement [facility] Throat culture Throat Culture [facility] Work Phone: Total protein measurement [facility] Urea nitrogen [Mass/volume] in Serum or Plasma [facility] [place] [place] Immunizations Immunization Date Immunization Notes Care Provider Dennys lebron 09-20-2016 influenza virus vacc ine, unspecified formulation [facility] [place] Work Phone: [facility] Payers Date Payer Category Payer Suleiman chun [employer] - [employer] [id number] 2024 Unknown [id number] 2024 Medicaid HMO [facility] [place]DM [id number] 2024 Unknown [id number] 2024 Self-pay [id number] 2023 Unknown [id number] 2019 Medicaid [id number] 2019 Unknown [id number] 1975 Unknown [id number] [id number] .627 Unknown [id number] Unknown [id number] Unknown [facility] 0 [id number] Unknown JINA [id number] Unknown [id number] [id number] .462 Unknown [id number] 2.16.840.1.426537.3.579.2 .462 Unknown [id number] 2.16.840.1.832534.3.579.2 .462 Unknown [id number] 2.16.840.1.554250.3.579.2 .462 Unknown [id number] 2.16.840.1.586008.3.579.2 .462 Unknown [id number] 2.16.840.1.254683.3.579.2 .462 Unknown [id number] 2.16.840.1.531097.3.579.2 .462 Unknown [id number] 2.16.840.1.553604.3.579.2 .462 Unknown [id number] 2.16.840.1.023692.3.579.2 .462 Unknown [id number] 2.16.840.1.469439.3.579.2 .462 Unknown [id number] 2.16.840.1.376664.3.579.2 .462 Unknown [id number] 2.16.840.1.494806.3.579.2 .462 Unknown [id number] 2.16.840.1.180356.3.579.2 .462 Unknown [id number] .462 Worker's Compensation [id number] Social History Date Type Detail Facility Start: 03-23-2022 End: 09-25-2023 Tobacco smoking status NHIS Unknown if ever smoked [facility] Start: 1975 Sex Assigned At Male [facility] Start: 06-03-2022 End: 12-16-2023 Tobacco smoking status NHIS Never smoked tobacco [facility] Start: 06-03-2022 End: 09-24-2024 Tobacco use and exposure Smokeless tobacco non-user [facility] Start: 06-03-2022 End: 11-23-2024 Alcohol intake Current drinker of alcohol (finding) [facility] Start: 02-06-2014 Alcohol Comment occasionally [facility] Start: 1975 Sex Assigned At Not on file [facility] Start: 05-24-2022 End: 06-03-2022 Exposure to SARS-CoV-2 (event) Not sure [facility] Work Phone: Tobacco smoking status No Smoking Status Entered [facility] Start: 06-03-2022 End: 11-23-2024 History of Social function [facility] Start: 06-03-2022 End: 11-23-2024 Tobacco use panel [facility] National Score (1-100), lower number is lower risk Not on file [facility] Start: 08-10-2024 End: 10-17-2024 Sex Male (finding) [facility] Start: 09-24-2024 Alcohol Comment rare occ [facility] Medical Equipment Procedure Code Equipment Code Equipment Origin al Text Equipment Identifier Dates Arthroscopy, elbow ([id number]) Tendon/ligame nt bone anchor, non-bioabsorbable ()[id number] FDA Start: 08-22-2022 ([id number]) Tendon/ligament bone anchor, non-bioabsorbable ()[id number] FDA Start: 05-08-2023 Start: 06-19-2024 Blood Sugar Diagnostic (Freestyle Lite Strips) strip Start: 12-02-2023 Lancets (Freesty le Lancets) 28 gauge misc Start: 12-02-2023 Blood Sugar Diagnostic (Freestyle Lite Strips) strip Start: 12-02-2023 Lancets (Freesty le Lancets) 28 gauge misc Start: 12-02-2023 Blood Sugar Diagnostic (Freestyle Lite Strips) strip Start: 12-02-2023 Lancets (Freesty le Lancets) 28 gauge misc Start: 12-02-2023 Blood Sugar Diagnostic (Freestyle Lite Strips) strip Start: 12-02-2023 Lancets (Freesty le Lancets) 28 gauge misc Start: 12-02-2023 Goals Date Patient Goal Desired Activity /State Functional Status Date Assessment Result Facility 04-03-2023 Functional Status Assistive Device None A [facility] 04-03-2023 Functional Status Awake [facility] Mental Status Date Assessment Result Facility 05-08-2023 Cognitive function Voice/Name [facility] Work Phone: 04-03-2023 Mental Status Orientation Oriented x 4 [facility] 04-03-2023 [facility] Status [facility] 08-22-2022 Cognitive function Deep Pain [facility] Work Phone: 03-23-2022 Cognitive function Touch/Shaking [facility] Work Phone: 03-23-2022 Cognitive function Patient Orien tation Person;Place;Time [facility] Work Phone: Clinical Notes 06-03-2022 to 01-05-2025 Zoltan Rocha MD - 01/05/2025 2:30 PM EDTPatient InstructionsTelephone Encounter - Hannah Domingo RN - 12/01/2024 1:13 PM EDTTelephone Encounter - Hannah Domingo RN - 12/01/2024 1:13 PM EDT Note Date & Type Note Facility 01-05-2025 History of Presen t illness Narrative Images from the original note were not included. [facility] SLEEP MEDICINE FOLLOW UP OFFICE VISIT-SLEEP Date of last visit: 11/23/24 Plan at that time: - Reviewed compliance data: good overall usage. Will try again to send for hybrid mask. As pt also feels he may benefit from higher pressure and weight gain since last study, sending Rx to increase pressure to 17/12 cmH2O. - will check additional labs for RLS. Continue pramipexole at current dose. If labs normal, consider lyrica. - F/u approximately 1 month. Interval History: Only one episode of RLS since he wrote me a couple weeks ago. But very mild, and in the middle of the day. 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 Got new hybrid mask, but hates it. Tube disconnects too easily as well. Still with dry mouth. Going to go back to nasal pillows mask soon. Does like higher pressure setting though. Very busy with work. No difference from Vitamin D supplementation. Denies any side effects from lyrica at this time. Taking Lyrica 25 mg AM and 75 mg HS. Also still taking pramipexole 0.25 AM, 0.25 mg PM, and 0.5 mg HS Therapy: Bipap 17/12 cmh2O DME: [employer] Mask: nasal pillows Current sleep meds: Pramipexole 0.25 mg @ 10 AM, 0.25 mg @ 2 PM, and 0.5 mg @ 8 pm Lyrica 25 mg AM and 75 mg HS Magnesium 400 mg @ HS Sleep-Wake Schedule Bedtime: 11 P.M. Final wake time: 7 A.M. he does wake up refreshed. Sleep Latency: instantly Awakenings after sleep onset: 1x, because of unknown reasons, and sometimes has difficulty falling asleep Naps: none Estimated total sleep time: 6 hours (Verified unchanged from last visit) Sleep Metrics: Lonsdale Sleepiness Scale: 11 (9 last visit) Past Treatments: Ropinirole Pramipexole Gabapentin Sleep Studies: 2014 study - doesn't know results Split-night PSG (01/18/23): Weight 294 lbs. AHI 124.4; SpO2 min 80%; PLM 0; PLM-a 0. CPAP 9 or Bipap 15/10 cmH2O recommended. Compliance Download: Past Medical History No past medical history on file. Past Surgical History No past surgical history on file. Allergies Allergies Allergen Reactions Colchicine Nausea And Vomiting and Other Doxycycline Hives Medications Current Outpatient Medications Medication Instructions Albuterol Sulfate 108 (90 Base) MCG/ACT aerosol powder Inhale. allopurinol (ZYLOPRIM) 300 mg, Daily aspirin 81 mg, Daily Blood Glucose Monitoring Suppl (Over[employer] True Met Air Gluc Meter) w/Device kit USE DIRECTED TO CHECK BLOOD GLUCOSE DAILY. cyanocobalamin (VITAMIN B-12) 1,000 mcg, Daily Diclofenac Sodium (Voltaren) 1 % gel As needed dilTIAZem CD (CARDIZEM CD) 300 mg, Every evening ergocalciferol (VITAMIN D2) 1.25 mg, Oral, Weekly, Take 1 capsule by mouth weekly, for 12 weeks. hydroCHLOROthiazide (HYDRODIURIL) 25 mg, Nightly Ibuprofen capsule Take by mouth. lisinopril 40 mg, Daily Magnesium 400 mg, Oral, Nightly meloxicam (MOBIC) 15 mg, Daily metFORMIN XR (GLUCOPHAGE-XR) 500 mg, 2 times daily metoprolol succinate XL (TOPROL-XL) 25 mg, Nightly omeprazole (PriLOSEC) [address] capsule TAKE 1 CAPSULE BY MOUTH ONCE DAILY 30 MINUTES BEFORE BREAKFAST pramipexole (Mirapex) 0.5 MG tablet TAKE 1/2 TABLET IN THE MORNING, 1/2 TABLET IN THE AFTERNOON, AND 1 TABLET 2-3 HOURS BEFORE BEDTIME. pregabalin (Lyrica) 25 MG capsule Take 1 capsule daily in the afternoon pregabalin (Lyrica) 75 MG capsule Take 1 capsule 1-2 hours before bed. ReliOn True Metrix Test Strips test strip USE TO CHECK BLOOD GLUCOSE DAILY TRUEplus Lancets 33G misc USE TO CHECK BLOOD GLUCOSE DAILY. Social History Social History Tobacco Use Smoking status: Never Smokeless tobacco: Never Substance Use Topics Alcohol use: Yes Comment: rare occ Family History No family history on file. Review of Systems Psychiatric/Behavioral: Positive for sleep disturbance. All other systems reviewed and are negative. (Verified unchanged from last visit) Physical Exam Vitals: 01/05/25 1443 BP: 137/79 Pulse: 92 SpO2: 94% Weight: 300 lb (136 kg) Height: 6' 3 (1.905 m) Body mass index is 37.5 kg/m . General appearance: Well appearing. No acute distress. AAOX3 Head: Normocephalic, without obvious abnormality, atraumatic Eyes: Normal sclera and conjunctiva Skin: Skin color normal. No rashes or lesions Psych: Euthymic Mood Labs/additional studies: Impression: Diagnosis Plan 1. RLS (restless legs syndrome) 2. PO (obstructive sleep apnea) 3. Vitamin D deficiency 49 y/o M with BMI > 30, HTN, DM. Presented with chronic RLS, as well as very severe PO. Had period during transition from pramipexole to requip had extreme worsening of RLS. Currently using higher than recommended max dose mirapex, but does note good symptom relieft. Also with very severe PO, compliant with Bipap 17/12 cmh2O with benefit. Recommendations: - Reviewed compliance data: good overall usage. Continue at current pressure setting. Pt is going back to nasal pillows mask. Will send for chinstrap to add to it. - Continue Vit D for RLS and Vit D deficiency. - Med mgmt: continue lyrica 25 mg AM and 75 mg HS. Will have him try to decrease mirapex from 0.5 to 0.25 mg HS as we attempt tapering given his dosage and potential for augmentation (will continue with 0.25 mg AM and 0.25 mg PM). Further taper as tolerated in the future (may need to adjust lyrica dosage in response). - will obtain nocturnal pulse oximetry on settings once he has chinstrap and using with nasal pillows mask. - f/u 2 months. documented in this encounter [facility] 01-05-2025 Instructions Zoltan Rocha MD - 01/05/2025 2:30 PM EDT - Please try decreasing your night pramipexole from a whole tab to a half tab (from 0.5 mg to 0.25 mg). Continue taking the half tablet in the morning and in the afternoon. - Continue taking your lyrica as you have been. - I'm sending for a chinstrap to your company, to use along with the nasal pillows. Let me know once you've received the chinstrap, because I'd like to get a nocturnal pulse oximetry reading on this set-up. documented in this encounter [facility] 12-01-2024 Telephone encounter Note Form atting of this note might be different from the original. Spoke to Anya, was able to order mask in [place] through [employer]. [facility] 12-01-2024 Miscellaneous Notes Formattin g of this note might be different from the original. Spoke to Anya, was able to order mask in [place] through [employer]. Left Vm with Anya at [facility], to see how to order a mask through [place], no option to choose a mask. Patient needs a hybrid mask. Order submitted via [place] through [employer] for the pressure change. They do not have masks available to order on the online system, will look into that next week and ask rep from [email or web address] to add that ordering option for our office. Images from the original note were not included. MD Hannah Mcgill, YONY Please send order for increase to 17/12 cmH2O and new hybrid mask. documented in this encounter [facility] 12-01-2024 Telephone encounter Note Form atting of this note might be different from the original. Left Vm with Anya at [facility], to see how to order a mask through [place], no option to choose a mask. Patient needs a hybrid mask. [facility] 11-30-2024 Telephone encounter Note Form atting of this note might be different from the original. Ordered on 11/23/24 [facility] 11-30-2024 Miscellaneous Notes Formattin g of this note might be different from the original. Ordered on 11/23/24 documented in this encounter [facility] 11-27-2024 Telephone encounter Note Form atting of this note might be different from the original. Order submitted via [place] through [employer] for the pressure change. They do not have masks available to order on the online system, will look into that next week and ask rep from [email or web address] to add that ordering option for our office. [facility] 11-27-2024 Telephone encounter Note Form atting of this note might be different from the original. Images from the original note were not included. MD Hannah Mcgill RN Please send order for increase to 17/12 cmH2O and new hybrid mask. [facility] 11-23-2024 History of Presen t illness Narrative Images from the original note were not included. [facility] SLEEP MEDICINE FOLLOW UP OFFICE VISIT-SLEEP Date of last visit: 09/24/24 Plan at that time: - reviewed labs from PCP's office. Would additionally obtain B12, folate, Mg, Vit D, TSH. - Discussed augmentation with patient, as he has now had to resort to daytime dosing of pramipexole. Reviewed most recent AASM guidelines. Will try to titrate up gabapentin (first-line agent), then start backing down on pramipexole. Reviewed side effects to monitor for. Pt will increase from 300 mg to 600 mg for now. Then will try to continue up to 1200 mg. Will need to also check BMP. Once titrated up on gabapentin, would try to decrease pramipexole. - Reviewed sleep study results and compliance download in detail with patient. Independently interpreted outside sleep study. Still had mild PO and hypoxia at current Bipap setting. Will send Rx to increase bipap to 16/11 cmH2O, as he has also gained approximately 5-6 lbs since study. Given some dry mouth, will try to order hybrid mask for patient. At next visit, would look to obtain nocturnal pulse on PAP therapy. - F/u approximately 2 months. Interval History: Didn't feel any benefit from gabapentin. Had one bad episode of RLS last week. Wonders about effect of new job. Now on his feet most of the day. Also with leg cramps. Knows he isn't quite hydrating enough. Off gabapentin for past week. Does feel that things are going better on PAP therapy with higher pressure. Breathing better. Feels like it might benefit from slightly higher pressure though. Never got a new mask. Still occasional dry mouth. Therapy: Bipap 16/11 cmh2O DME: [employer] Mask: nasal pillows Current sleep meds: Pramipexole 0.25 mg @ 10 AM, 0.25 mg @ 2 PM, and 0.5 mg @ 8 pm Magnesium 400 mg @ HS Sleep-Wake Schedule Bedtime: 11 P.M. Final wake time: 7 A.M. he does wake up refreshed. Sleep Latency: instantly Awakenings after sleep onset: 1x, because of unknown reasons, and sometimes has difficulty falling asleep Naps: none Estimated total sleep time: 6 hours (Verified unchanged from last visit) Sleep Metrics: Lonsdale Sleepiness Scale: 9 (8 last visit) Past Treatments: Ropinirole Pramipexole Gabapentin Sleep Studies: 2015 study - doesn't know results Split-night PSG (01/18/23): Weight 294 lbs. AHI 124.4; SpO2 min 80%; PLM 0; PLM-a 0. CPAP 9 or Bipap 15/10 cmH2O recommended. Compliance Download: Past Medical History No past medical history on file. Past Surgical History No past surgical history on file. Allergies Allergies Allergen Reactions Colchicine Nausea And Vomiting and Other Doxycycline Hives Medications Current Outpatient Medications Medication Instructions Albuterol Sulfate 108 (90 Base) MCG/ACT aerosol powder Inhale. allopurinol (ZYLOPRIM) 300 mg, Daily aspirin 81 mg, Daily Blood Glucose Monitoring Suppl (Over[employer] True Met Air Gluc Meter) w/Device kit USE DIRECTED TO CHECK BLOOD GLUCOSE DAILY. cyanocobalamin (VITAMIN B-12) 1,000 mcg, Daily Diclofenac Sodium (Voltaren) 1 % gel As needed dilTIAZem CD (CARDIZEM CD) 300 mg, Every evening hydroCHLOROthiazide (HYDRODIURIL) 25 mg, Nightly Ibuprofen capsule Take by mouth. lisinopril 40 mg, Daily Magnesium 400 mg, Oral, Nightly meloxicam (MOBIC) 15 mg, Daily metFORMIN XR (GLUCOPHAGE-XR) 500 mg, 2 times daily metoprolol succinate XL (TOPROL-XL) 25 mg, Nightly omeprazole (PriLOSEC) [address] capsule TAKE 1 CAPSULE BY MOUTH ONCE DAILY 30 MINUTES BEFORE BREAKFAST pramipexole (Mirapex) 0.5 MG tablet TAKE 1/2 TABLET IN THE MORNING, 1/2 TABLET IN THE AFTERNOON, AND 1 TABLET 2-3 HOURS BEFORE BEDTIME. ReliOn True Metrix Test Strips test strip USE TO CHECK BLOOD GLUCOSE DAILY TRUEplus Lancets 33G misc USE TO CHECK BLOOD GLUCOSE DAILY. Social History Social History Tobacco Use Smoking status: Never Smokeless tobacco: Never Substance Use Topics Alcohol use: Yes Comment: rare occ Family History No family history on file. Review of Systems Psychiatric/Behavioral: Positive for sleep disturbance. All other systems reviewed and are negative. (Verified unchanged from last visit) Physical Exam Vitals: 11/23/24 1031 BP: 125/76 BP Location: Left arm Patient Position: Sitting BP Cuff Size: Large adult Pulse: 81 Resp: 16 SpO2: 97% Weight: (!) 304 lb 12.8 oz (138 kg) Height: 6' 3 (1.905 m) Body mass index is 38.1 kg/m . General appearance: Well appearing. No acute distress. AAOX3 Head: Normocephalic, without obvious abnormality, atraumatic Eyes: Normal sclera and conjunctiva Skin: Skin color normal. No rashes or lesions Psych: Euthymic Mood, full affect Labs/additional studies: Reviewed outside labs from [facility] Impression: Diagnosis Plan 1. RLS (restless legs syndrome) Magnesium Vitamin D Deficiency Screening (Vit D 25) TSH Vitamin B12 Folate Magnesium Vitamin D Deficiency Screening (Vit D 25) TSH Vitamin B12 Folate pramipexole (Mirapex) 0.5 MG tablet Magnesium 400 MG capsule 2. PO (obstructive sleep apnea) 3. Class 2 obesity in adult, unspecified BMI, unspecified obesity type, unspecified whether serious comorbidity present 49 y/o M with BMI > 30, HTN, DM. Presented with chronic RLS, as well as very severe PO. Had period during transition from pramipexole to requip had extreme worsening of RLS. Currently using higher than recommended max dose mirapex, but does note good symptom relieft. Also with very severe OP, compliant with Bipap 16/11 cmh2O with benefit. Recommendations: - Reviewed compliance data: good overall usage. Will try again to send for hybrid mask. As pt also feels he may benefit from higher pressure and weight gain since last study, sending Rx to increase pressure to 17/12 cmH2O. - will check additional labs for RLS. Continue pramipexole at current dose. If labs normal, consider lyrica. - F/u approximately 1 month. documented in this encounter [facility] 11-23-2024 Instructions Zoltan Rocha MD - 11/23/2024 10:30 AM EDT - maddison documented in this encounter [facility] 11-09-2024 Telephone encounter Note Form atting of this note might be different from the original. Name of Caller: Giovanni Contact Reason for Appointment: Patient called to reschedule his appointment with Dr Rocha on 11/23/24 due to the time. First available afternoon appointment is on 12/21/24. Patient stated that he will keep his appointment on 11/23/24 for now. Added patient to waiting list. Patient asking for a call if an afternoon appointment becomes available. Please be advised. Office Name: Sleep Medicine Medication Refills need, if any: N/A Medication Name: N/A [facility] 11-09-2024 Miscellaneous Notes Formattin g of this note might be different from the original. Name of Caller: Giovanni Contact Reason for Appointment: Patient called to reschedule his appointment with Dr Rocha on 11/23/24 due to the time. First available afternoon appointment is on 12/21/24. Patient stated that he will keep his appointment on 11/23/24 for now. Added patient to waiting list. Patient asking for a call if an afternoon appointment becomes available. Please be advised. Office Name: Sleep Medicine Medication Refills need, if any: N/A Medication Name: N/A documented in this encounter [facility] 10-05-2024 Evaluation note Diagnosis Onset Date Resolution Essential hypertension chronic Fe bruary 2024 8:39am Restless leg syndrome chronic Feb [place] 2024 8:39am Sleep apnea chronic September 8:39am Type 2 diabetes mellitus chronic October 05 8:39am Encounter for pre-employment health screening examination acute September 132024 2:20pm [facility] Work Phone: 1(904) 830-329002-24-2025 Evaluation note* Diagnosis Onset Date Resolution Status Admit Date Essential hypertension chronic Fe bruary 2024 8:39am Restless leg syndrome chronic Feb [place] 2024 8:39am Sleep apnea chronic September 8:39am Type 2 diabetes mellitus chronic October 05, 2024 8:39am Encounter for pre-employment health screening examination acute [facility] 2024 2:20pm Essential hypertension chronic Ma y 2024 1:25pm 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 Work Phone: 1(797) 895-871602-13-2025 History of Present illness Narrative* Zoltan Rocha MD - 09/24/2024 11:00 AM EST Images from the original note were not included. [facility] Sleep Medicine NEW PATIENT OFFICE VISIT-SLEEP MEDICINE 09/24/2024 REFERRING PHYSICIAN: Kayleigh Singleton MD REASON FOR REFERRAL: Chief Complaint Patient presents with New Patient Restless Legs HPI: Giovanni Johnson is a 49 y.o. male. Went through period of time where he got little to no sleep over 8 days. Occurred during transition from pramipexole to requip, but it didn't help him at all. Then went back to pramipexole, switched to dosing AM and HS. Feels now his RLS is doing much better. Has severe restless legs going on for 14-15 years. Will get discomfort in legs that requires movement or standing to very briefly alleviate it. Worst at night. Would happen in seated position. Never diagnosed with anemia. Typically only happens in one leg at a time. Has had it in arms as well (during period off pramipexole). Initially started using Calcium or Magnesium supplement. Tried OTC homeopathic supplements. Taking pramipexole for 10 years. Was taking 1.5 mg at one time. Was thinking about going off gabapentin altogether? Never been above 600 mg gabapentin. Sleepiness much better on Bipap. Had sleep study in 2022 following weight gain and witnessed apneas. Has nasal pillows mask. DME [employer]. Occasional air hunger. Tried full face mask, didn't like as much. Current sleep meds: Pramipexole 0.25 mg @ 10 AM, 0.25 mg @ 2 PM, and 0.5 mg @ 8 pm Gabapentin 300 mg @ 8 pm (used to be 600 mg) Magnesium 400 mg @ HS Sleep-Wake Schedule Bedtime: 11 P.M. Final wake time: 7 A.M. he does wake up refreshed. Sleep Latency: instantly Awakenings after sleep onset: 1x, because of unknown reasons, and sometimes has difficulty falling asleep Naps: none Estimated total sleep time: 6 hours During Sleep: Habitual sleep position: side and supine Snoring: not while using PAP Witnessed apneas: not while using PAP Wakes up gasping for air: rare Wakes up with heart pounding/racing: no Parasomnias: States he had frequent dream enactment in the past, but not happening since starting Bipap. Didn't always have recall of the dreams. During Wake: Occupation: unemployed He does not have daytime sleepiness. He does not have fatigue. He has not fallen asleep while driving Caffeine: caffeinated soft drinks 1-2 jl / week Recent weight change: gained 5-6 lbs in past 2 years Sleep Metrics: Lonsdale Sleepiness Scale: Total score: 8 Past Treatments: Ropinirole Pramipexole Gabapentin Sleep Studies: 2014 study - doesn't know results Split-night PSG (01/18/23): Weight 294 lbs. AHI 124.4; SpO2 min 80%; PLM 0; PLM-a 0. CPAP 9 or Bipap 15/10 cmH2O recommended. Relevant LABS/Studies: Ferritin 112 on 03/30/24 No past medical history on file. No past surgical history on file. Allergies Allergen Reactions Colchicine Nausea And Vomiting and Other Doxycycline Hives Current Outpatient Medications Medication Instructions Albuterol Sulfate 108 (90 Base) MCG/ACT aerosol powder Inhale. allopurinol (ZYLOPRIM) 300 mg, Daily aspirin 81 mg, Oral, Daily Blood Glucose Monitoring Suppl (ReliOn True Met Air Gluc Meter) w/Device kit USE DIRECTED TO CHECK BLOOD GLUCOSE DAILY. cyanocobalamin (VITAMIN B-12) 1,000 mcg, Oral, Daily Diclofenac Sodium (Voltaren) 1 % gel As needed dilTIAZem CD (CARDIZEM CD) 300 mg, Every evening gabapentin (Neurontin) 300 MG capsule TAKE 2 CAPSULES BY MOUTH ONCE DAILY AT BEDTIME hydroCHLOROthiazide (HYDRODIURIL) 25 mg, Nightly Ibuprofen capsule Take by mouth. lisinopril 40 mg, Daily magnesium hydroxide (Milk of Magnesia) 400 MG/5ML suspension Oral, Nightly meloxicam (MOBIC) 15 mg, Daily metFORMIN XR (GLUCOPHAGE-XR) 500 mg, 2 times daily metoprolol succinate XL (TOPROL-XL) 25 mg, Nightly omeprazole (PriLOSEC) [address] capsule TAKE 1 CAPSULE BY MOUTH ONCE DAILY 30 MINUTES BEFORE BREAKFAST pramipexole (Mirapex) 0.5 MG tablet TAKE 1/2 TABLET IN THE MORNING, 1/2 TABLET IN THE AFTERNOON, AND 1 TABLET 2-3 HOURS BEFORE BEDTIME. ReliOn True Metrix Test Strips test strip USE TO CHECK BLOOD GLUCOSE DAILY TRUEplus Lancets 33G misc USE TO CHECK BLOOD GLUCOSE DAILY. Social History Tobacco Use Smoking status: Never Smokeless tobacco: Never Substance Use Topics Alcohol use: Yes Comment: rare occ No family history on file. Family Sleep History: RLS -- brother Review of Systems Psychiatric/Behavioral: Positive for sleep disturbance. All other systems reviewed and are negative. Physical Exam: Vitals: 09/24/24 1112 BP: 132/82 BP Location: Left arm Patient Position: Sitting BP Cuff Size: Large adult Pulse: 79 Resp: 16 SpO2: 96% Weight: (!) 301 lb 12.8 oz (137 kg) Height: 6' 3 (1.905 m) Body mass index is 37.72 kg/m . Neck Circumference (in): 21 in. General appearance: NAD. Mental Status/Psych: A&O x 3. Euthymic mood, full affect. Skin: No rashes or lesions. Skin palpation normal. Head: Normocephalic, without obvious abnormality, atraumatic Eyes: PERRL, EOM intact. Normal sclera and conjunctiva Neck: Supple, No JVD. No thyromegaly. Lungs: Clear bilaterally. No wheezing. No crackles. No use of accessory muscles. Full respiratory effort. Heart: RRR, S1, S2 normal, no murmur, click, rub or gallop Extremities: extremities normal: no clubbing, no cyanosis, no edema Musculoskeletal: No joint abnormalities. Neurological: Normal gait. Sensation grossly intact to light touch. ASSESSMENT/PLAN: Diagnosis Plan 1. RLS (restless legs syndrome) 2. PO (obstructive sleep apnea) 3. Class 2 obesity in adult, unspecified BMI, unspecified obesity type, unspecified whether seriouscomorbidity present 49 y/o M with BMI > 30, HTN, DM. Presents with chronic RLS, as well as very severe PO. Had period during transition from pramipexole to requip had extreme worsening of RLS. Currently using higherthan recommended max dose mirapex, but does not good symptom relieft. Also with very severe PO, compliant with Bipap 15/10 cmh2O with benefit. - reviewed labs from PCP's office. Would additionally obtain B12, folate, Mg, Vit D, TSH. - Discussed augmentation with patient, as he has now had to resort to daytime dosing of pramipexole. Reviewed most recent AASM guidelines. Will try to titrate up gabapentin (first-line agent), then start backing down on pramipexole. Reviewed side effects to monitor for. Pt will increase from 300 mgto 600 mg for now. Then will try to continue up to 1200 mg. Will need to also check BMP. Once titrated up on gabapentin, would try to decrease pramipexole. - Reviewed sleep study results and compliance download in detail with patient. Independently interpreted outside sleep study. Still had mild PO and hypoxia at current Bipap setting. Will send Rx to increase bipap to 16/11 cmH2O, as he has also gained approximately 5-6 lbs since study. Given some dry mouth, will try to order hybrid mask for patient. At next visit, would look to obtain nocturnal pulse on PAP therapy. - F/u approximately 2 months. signed by Zoltan Rocha MD On this date, 09/24/2024 I have spent 60 minutes formulating and reviewing the above recommendationsand treatment plan with the patient. This time also includes documentation on the day of the visit,as well as discussion of sleep testing/review of sleep testing results (as applicable). documented in this [facility]02-13-2025 Instructions* Patient Instructions* Zoltan Rocha MD - 09/24/2024 11:00 AM EST - Keep your pramipexole at the current dose. - Increase your gabapentin to 600 mg at 8 pm. After 2 weeks, try increasing it to 900 mg at 8 pm. After 2 weeks of that, try going up to 1200 mg at 8 pm. - I'm sending an order to try a different style of mask and change your pressure on the bipap to [employer]. - I'll check in with you via [employer] in a couple weeks, and then we'll follow-up in the office in afew months. documented in this [facility] [id number] Telephone encounter Note* Telephone Encounter - Jimy Thomas - 08/13/2024 11:45 AM EST Patient is scheduled with us now, thank you! [id number] Miscellaneous Notes* Telephone Encounter - Jimy Jensenan - 08/13/2024 11:45 AM EST Patient is scheduled with us now, thank you! * Telephone Encounter - Halima Ford - 08/10/2024 8:56 AM EST Hello, We received this sleep med referral in [employer]. I even ended up speaking with someone from the office, and it seems they would like him to see someone as soon as possible. He is brand new to [facility] so I had to make a new chart for him. Thank you! documented in this [address]SW[address] [id number] NoteJuanjose cruz, We received this sleep med referral in [employer]. I even ended up speaking with someone from the office, and it seems they would like him to see someone as soon as possible. He is brand new to [facility] so I had to make a new chart for him. Thank you![facility]12-30-2024 Telephone encounter Note* Telephone Encounter - Halima Grovermally - 08/10/2024 8:56 AM EST Mu, We received this sleep med referral in [employer]. I even ended up speaking with someone from the office, and it seems they would like him to see someone as soon as possible. He is brand new to [facility] so I had to make a new chart for him. Thank you! [facility] [id number] Miscellaneous Notes* Telephone Encounter - Halima Ford - 08/10/2024 8:56 AM EST Mu, We received this sleep med referral in [employer]. I even ended up speaking with someone from the office, and it seems they would like him to see someone as soon as possible. He is brand new to [facility] so I had to make a new chart for him. Thank you! documented in this [facility]11-25-2024 Evaluation note* Diagnosis Onset Date Resolution Status Admit Date Essential hypertension chronic No vem2023 8:59am Restless leg syndrome chronic Nov emb2023 8:59am Tachycardia chronic June 8:59am Type 2 diabetes mellitus chronic July 06, 2024 8:59am Essential hypertension chronic Fe bruary 2024 8:39am Restless leg syndrome chronic Feb ru2024 8:39am Sleep apnea chronic September 8:39am Type 2 diabetes mellitus chronic October 05, 2024 8:39am Encounter for pre-employment health screening examination acute Sep 2:20pm [facility] Work Phone: 1(973) 982-490311-27-2023 Progress note Author Pily Guerrero [facility] July 08, 2023 10:40am Note Date/Time July 08, 2023 10:40am [facility] [address] [place] [id number] Progress Note - Wound Care 07/08/23 1036 MR#: [id number] Acct: [id number] Name: GIOVANNI JOHNSON Rep #:[id number] : 1975 48 From: Pily zapata [employer] PCP: Dr. Kayleigh Singleton MD Status:R EG RCR Location: History of Present Illness Date of Service: 07/08/23 Chief Complaint: Right lateral elbow wound after surgery 05/08/23 History of Wound: 48 year old male presents for evaluation of his non healing surgical wound from 05/08/23 of his right lateral elbow. He initially injured this elbow at work on 03/19/22 while lifting a cabinet. He had surgery 08/22/22 forright elbow arthroscopy debridement and repair of common extensor by Dr. Erickson. Patient states that he was doing well with OT, then developed a seroma on lateral side of elbow that would come and go. On 05/08/23 he went back to surgery for right elbow revision repair common extensor tendon, irrigation and debridement, injection platelet rich plasma. Last week the incision and he was referred to the wound healing center for further evaluationand treatment of this wound. He is off work at this time. He has a history of Pre diabetes, last HbA1c 5.9 from 03/14/23. History of cardiacarrhythmia, tachycardia, HTN, hyperlipidemia, Sleep apnea, and back pain. He denies any fever, chills, nausea or vomiting. Progress of Wound: Right lateral elbow incision wound is healed today. Objective Data Objective Data Vital Signs: Vital Signs Temp Pulse Resp BP O2 Del Method 96.2 F L 86 18 131/89 H Room Air 07/08/23 09:01 07/08/23 09:01 07/08/23 09:01 07/08/23 09:01 07/08/23 09:01 Oxygen Delivery Method Room Air Weight: 285 lb Body Mass Index (BMI) 35.6 Charges/Coding Visit Charges Office Visits / Consults: 44292 OV L3 Est Physical Exam Const alert, oriented x3, no apparent distress and well nourished General Appearance: cooperative HEENT normocephalic Eyes General Eye: normal appearance of both eyes Neck full ROM Lymph Lymphatic: no lymphedema noted Resp normal respiratory effort and normal air movement Effort and Inspection: able to speak in complete sentences Cardio regular rate Back/Spine normal ROM Extremity normal capillary refill Extremity Narrative: Right lateral elbow incision is healed except for the center of the incision there is a small separation with undermining, especially at 12 o'clock. There is no erythema. Skin Wound Narrative: Right lateral elbow incision is completely healed today. Neuro oriented x3 and moves all extremities Debridement Note Debridement Note No debridement was completed: No debridement was completed today Post-Debridement Measurements and Additional Note: Post-Debridement Measurements/Treatment - Nurse 1 - General Ulcer Assessment Start: 06/24/23 09:58 Freq: Status: Active Protocol: JES Activity Type Activity Date Activity User E-sign Co-sign Detail Recorded Client Recorded Date Recorded By Document 06/24/23 09:59 [facility] Desktop 06/24/23 10:02 [facility] Document 07/08/23 09:01 Desktop 07/08/23 09:05 06/24/23 07/08/23 09:59 09:01 - Today's Visit Information Type of service Follow-up Visit Follow-up Visit (Physician/SHREDDER TENDER (Physician/SHREDDER TENDER ) ) Arrival Mode Ambulatory Ambulatory Transfer Assistance None None Accompanied by Patient Identification Verified (Name & Yes Yes ) Patient Requires Transmission-Based No Precautions Height and Weight Body Mass Index (BMI) 35.6 35.6 BMI Classification Obese Obese Vital Signs Temperature (97.8 F-99.1 F) 97.2 F L 96.2 F L Temperature Source Temporal Temporal Pulse Rate (60-100) 93 86 Pulse Location Monitor Monitor Respiratory Rate (12-18) 18 Respiratory rate source Observation Oxygen Delivery Method Room Air Blood Pressure (90/60-120/80) 140/92 H 131/89 H Blood Pressure Mean (mm Hg) 108 103 Source Monitor Monitor Position Sitting Sitting Blood Pressure Location Right Arm Left Arm History Since Last Visit- (Skip if this is Patient's initial visit) Have you changed medications since your No No last visit? Any new allergies or adverse reactions No No Had a fall/change in ADL's that may No No increase risk of falls Signs or symptoms of abuse and/or No No neglect since last visit Have you been in the hospital since your No No last visit? Has dressing in place as prescribed Yes Has compression in place as prescribed N/A Has offloadiing in place as prescribed N/A Experienced any changes in pain level or No management Left Footwear Regular Shoe Right Footwear Regular Shoe Pain Scale: 0-10 Numeric Is Patient Pain Free? Yes Yes - Nurse 1 - General Ulcer Measurement Start: 06/24/23 09:58 Freq: Status: Active Protocol: Activity Type Activity Date Activity User E-sign Co-sign Detail Recorded Client Recorded Date Recorded By Document 06/24/23 09:59 [facility] Desktop 06/24/23 10:02 [facility] Document 07/08/23 09:01 Desktop 07/08/23 09:05 06/24/23 07/08/23 09:59 09:01 Wound Center Nurse 1 #1- R ELBOW (POST OP) -Combined with other wound No No -Current Size (cm) - Length 0.1 -Current Size (cm) - Width 0.1 -Current Size (cm) - Depth 0.1 -Total Square Cm 0.01 -Photo Taken No -Epithelialization Large 67-100% Large 67-100% -Tunneling No -Undermining/Tunneling No -Wound Margin Flat & Intact -Texture (Colleen-wound Skin Appearance) Assessed, Scarring -Moisture (Colleen-wound Skin Appearance) Assessed,Dry/ Scaly -Color (Colleen-wound Skin Appearance) Assessed -Temperature (Colleen-wound Skin No Abnormality Appearance) (Pt Warm) -Tenderness on Palpation (Colleen-wound No Skin Appearance) -Ulcer Cleansing Rinsed/ Irrigated with Saline -Foul Odor after Cleansing No -Anesthetic Used 5% Lidocaine Gel TAMIKO - Nurse 2 - General Ulcer CM Notes Start: 06/24/23 09:58 Freq: Status: Active Protocol: Activity Type Activity Date Activity User E-sign Co-sign Detail Recorded Client Recorded Date Recorded By Document 06/24/23 10:16 Laptop 06/24/23 10:21 Document 07/08/23 09:12 Laptop 07/08/23 09:13 06/24/23 07/08/23 10:16 09:12 Wound Center Nurse 2 #1- R ELBOW (POST OP) -Time 10:20 -Correct Patient Yes No -Correct Side, Site, Position Yes No -Correct Procedure Yes No -Procedure Performed Yes No -Type of Procedure Debridement -Clinical Debridement Epidermis / Dermis -Tissue Removed Epidermis, Dermis -Post Debridement (cm) - Length 0.1 0 -Post Debridement (cm) - Width 0.1 0 -Post Debridement (cm) - Depth 0.1 0 -Total Square (Post) (cm) 0.01 0 -Area of Debridement (cm) - Length 0.1 0 -Area of Debridement (cm) - Width 0.1 0 -Total Square (Area) (cm) 0.01 0 -Tunneling No -Undermining/Tunneling No -Circular Undermining No -Wound/Ulcer Outcome Not Healed Healed- Epithelialized -Ulcer Cleansing Rinsed/ Irrigated with Saline -Foul Odor after Cleansing No -Bioengineered Tissue No -Bleeding Controlled with NA -Treatment Response Procedure Tolerated Well -Offloading No -Debridement - Open, 1st 20sq cm Yes Pain Scale: 0-10 Numeric Is Patient Pain Free? Yes Yes TAMIKO - Nurse 3 - General Ulcer D/C NN Start: 06/24/23 09:58 Freq: Status: Active Protocol: Activity Type Activity Date Activity User E-sign Co-sign Detail Recorded Client Recorded Date Recorded By Document 06/24/23 10:21 Laptop 06/24/23 10:22 Document 07/08/23 09:14 Laptop 07/08/23 09:14 06/24/23 07/08/23 10:21 09:14 Wound Care Center Nurse 3 #1- R ELBOW (POST OP) -Ulcer Cleansing Rinsed/ Irrigated with Saline -Foul Odor after Cleansing No -Primary Dressing Applied NonAdherent Contact Layer -Other Dressing bandaid Pain Scale: 0-10 Numeric Is Patient Pain Free? Yes Yes WC - Visit Discharge Discharge Condition Stable Stable Ambulatory Status Ambulatory Ambulatory Transportation Private Auto Private Auto Accompanied by Medication Reconcilliation completed & Yes Yes provided to patient/care provider Clinical Summary of Care Provided Yes Yes Assessment/Plan Assessment/Plan (1) Right lateral epicondylitis: CODE(S): M77.11 - Lateral epicondylitis, right elbow (2) Delayed surgical wound healing: CODE(S): T81.89XA - Other complications of procedures, not elsewhere classified, initial encounter PLAN: Plan Patient was evaluated at the wound healing center. His right lateral elbow wound is healed. today. Encouraged him to massage the scarring 1-2 times a day with lotion to help soften scarring. He is to follow up with Dr. Erickson. Lifting restriction and mobility as prescribed by Dr. Erickson. Follow up as needed. 07/08/23 1040 <Electronically signed by Pily Guerrero NP [employer]> Cosigner Signature (if applicable): CC: ~ Signed [facility] Work Phone: 1(585) 458-757311-18-2023 Progress note Author Pily Guerrero [facility] June 29, 2023 9:54pm Note Date/Time June 24, 2023 11:57am [facility] [address] [place] [address] Progress Note - Wound Care 06/24/23 1157 MR#: [id number] Acct: [id number] Name: GIOVANNI JOHNSON Rep #:[id number] : 1975 48 From: Pily zapata [employer]ER[employer]S [employer]ECTIVE [employer]-C PCP: Dr. Kayleigh Singleton MD Status:R EG RCR Location: History of Present Illness Date of Service: 06/24/23 Chief Complaint: Right lateral elbow wound after surgery 05/08/23 History of Wound: 48 year old male presents for evaluation of his non healing surgical wound from 05/08/23 of his right lateral elbow. He initially injured this elbow at work on 03/19/22 while lifting a cabinet. He had surgery 08/22/22 forright elbow arthroscopy debridement and repair of common extensor by Dr. Erickson. Patient states that he was doing well with OT, then developed a seroma on lateral side of elbow that would come and go. On 05/08/23 he went back to surgery for right elbow revision repair common extensor tendon, irrigation and debridement, injection platelet rich plasma. Last week the incision and he was referred to the wound healing center for further evaluationand treatment of this wound. He is off work at this time. He has a history of Pre diabetes, last HbA1c 5.9 from 03/14/23. History of cardiacarrhythmia, tachycardia, HTN, hyperlipidemia, Sleep apnea, and back pain. He denies any fever, chills, nausea or vomiting. Progress of Wound: Right lateral elbow incision has two very small wounds. It is almost healed. There are two small areas and the one has a small blister that drains. There isno depth to this area. Objective Data Objective Data Vital Signs: Vital Signs Temp Pulse Resp BP 97.2 F L 93 16 140/92 H 06/24/23 09:59 06/24/23 09:59 06/12/23 00:55 06/24/23 09:59 Weight: 285 lb Body Mass Index (BMI) 35.6 Charges/Coding Addendum Addendum: Selective debridement 79676 Debridement Note Debridement Note Wound debrided: Lateral elbow incision Laterality: Right Type of Debridement: Selective debridement Anesthesia Used: 5% Lidocaine Gel Depth: Down to and including healthy tissue Percentage of wound debrided: 100 Tissue Removed: non viable tissue and slough Severity: Limited To Skin Breakdown Bleeding Controlled with: Pressure and Compression and gauze Patient tolerated procedure: Patient tolerated procedure well Debridement Free Text: unroofed blister with pick ups to help prevent moisture build up and to help make wound care easier Post-Debridement Measurements and Additional Note: Post-Debridement Measurements/Treatment WC - Nurse 1 - General Ulcer Assessment Start: 06/24/23 09:58 Freq: Status: Active Protocol: JES Activity Type Activity Date Activity User E-sign Co-sign Detail Recorded Client Recorded Date Recorded By Document 06/24/23 09:59 [facility] [employer] 06/24/23 10:02 [facility] 06/24/23 09:59 - Today's Visit Information Type of service Follow-up Visit (Physician/SHREDDER TENDER ) Arrival Mode Ambulatory Transfer Assistance None Accompanied by Patient Identification Verified (Name & Yes ) Height and Weight Body Mass Index (BMI) 35.6 BMI Classification Obese Vital Signs Temperature (97.8 F-99.1 F) 97.2 F L Temperature Source Temporal Pulse Rate (60-100) 93 Pulse Location Monitor Blood Pressure (90/60-120/80) 140/92 H Blood Pressure Mean (mm Hg) 108 Source Monitor Position Sitting Blood Pressure Location Right Arm History Since Last Visit- (Skip if this is Patient's initial visit) Have you changed medications since your No last visit? Any new allergies or adverse reactions No Had a fall/change in ADL's that may No increase risk of falls Signs or symptoms of abuse and/or No neglect since last visit Have you been in the hospital since your No last visit? Has dressing in place as prescribed Yes Has compression in place as prescribed N/A Has offloadiing in place as prescribed N/A Experienced any changes in pain level or No management Left Footwear Regular Shoe Right Footwear Regular Shoe Pain Scale: 0-10 Numeric Is Patient Pain Free? Yes - Nurse 1 - General Ulcer Measurement Start: 06/24/23 09:58 Freq: Status: Active Protocol: Activity Type Activity Date Activity User E-sign Co-sign Detail Recorded Client Recorded Date Recorded By Document 06/24/23 09:59 [facility] [employer] 06/24/23 10:02 [facility] 06/24/23 09:59 Wound Center Nurse 1 #1- R ELBOW (POST OP) -Combined with other wound No -Current Size (cm) - Length 0.1 -Current Size (cm) - Width 0.1 -Current Size (cm) - Depth 0.1 -Total Square Cm 0.01 -Epithelialization Large 67-100% -Texture (Colleen-wound Skin Appearance) Assessed, Scarring -Moisture (Colleen-wound Skin Appearance) Assessed,Dry/ Scaly -Color (Colleen-wound Skin Appearance) Assessed -Temperature (Colleen-wound Skin No Abnormality Appearance) (Pt Warm) -Tenderness on Palpation (Colleen-wound No Skin Appearance) -Ulcer Cleansing Rinsed/ Irrigated with Saline -Foul Odor after Cleansing No -Anesthetic Used 5% Lidocaine Gel - Nurse 2 - General Ulcer CM Notes Start: 06/24/23 09:58 Freq: Status: Active Protocol: Activity Type Activity Date Activity User E-sign Co-sign Detail Recorded Client Recorded Date Recorded By Document 06/24/23 10:16 Laptop 06/24/23 10:21 06/24/23 10:16 Wound Center Nurse 2 -Time 10:20 -Correct Patient Yes -Correct Side, Site, Position Yes -Correct Procedure Yes -Procedure Performed Yes -Type of Procedure Debridement -Clinical Debridement Epidermis / Dermis -Tissue Removed Epidermis, Dermis -Post Debridement (cm) - Length 0.1 -Post Debridement (cm) - Width 0.1 -Post Debridement (cm) - Depth 0.1 -Total Square (Post) (cm) 0.01 -Area of Debridement (cm) - Length 0.1 -Area of Debridement (cm) - Width 0.1 -Total Square (Area) (cm) 0.01 -Tunneling No -Undermining/Tunneling No -Circular Undermining No -Wound/Ulcer Outcome Not Healed -Ulcer Cleansing Rinsed/ Irrigated with Saline -Foul Odor after Cleansing No -Bioengineered Tissue No -Bleeding Controlled with NA -Treatment Response Procedure Tolerated Well -Offloading No -Debridement - Open, 1st 20sq cm Yes Pain Scale: 0-10 Numeric Is Patient Pain Free? Yes - Nurse 3 - General Ulcer D/C NN Start: 06/24/23 09:58 Freq: Status: Active Protocol: Activity Type Activity Date Activity User E-sign Co-sign Detail Recorded Client Recorded Date Recorded By Document 06/24/23 10:21 Laptop 06/24/23 10:22 06/24/23 10:21 Wound Care Center Nurse 3 #1- R ELBOW (POST OP) -Ulcer Cleansing Rinsed/ Irrigated with Saline -Foul Odor after Cleansing No -Primary Dressing Applied NonAdherent Contact Layer -Other Dressing bandaid Pain Scale: 0-10 Numeric Is Patient Pain Free? Yes - Visit Discharge Discharge Condition Stable Ambulatory Status Ambulatory Transportation Private Auto Accompanied by Medication Reconcilliation completed & Yes provided to patient/care provider Clinical Summary of Care Provided Yes Assessment/Plan Assessment/Plan (1) Right lateral epicondylitis: CODE(S): M77.11 - Lateral epicondylitis, right elbow (2) Delayed surgical wound healing: CODE(S): T81.89XA - Other complications of procedures, not elsewhere classified, initial encounter PLAN: Plan Patient was evaluated at the wound healing center. Wound care - Place adaptic covered by gauze daily. Compression - CAT wrap start distally and wrap up arm. Lifting restriction and mobility as prescribed by Dr. Erickson. Continue antibiotics as previously prescribed. Follow up two weeks. Call if develop any concerns. 06/29/232153 <Electronically signed by Pliy Guerrero NP SHERIFFS DETECTIVE-C> Cosigner Signature (if applicable): CC: ~ Signed [facility] Work Phone: 1(126) 620-809510-30-2023 Progress note Author Pily [facility] June 10, 2023 1:53pm Note Date/Time June 10, 2023 1 1:38am [facility] [address] [place] [id number] Progress Note - Wound Care 06/10/23 1138 MR#: [id number] Acct: [id number] Name: GIOVANNI JOHNSON Rep #:[id number] : 1975 48 From: Pily zapata NP [employer]ERIFFS DETECTIVE-C PCP: Dr. Kayleigh Singleton MD Status:R EG RCR Location: History of Present Illness Date of Service: 06/10/23 Chief Complaint: Right lateral elbow wound after surgery 05/08/23 History of Wound: 48 year old male presents for evaluation of his non healing surgical wound from 05/08/23 of his right lateral elbow. He initially injured this elbow at work on 03/19/22 while lifting a cabinet. He had surgery 08/22/22 forright elbow arthroscopy debridement and repair of common extensor by Dr. Erickson. Patient states that he was doing well with OT, then developed a seroma on lateral side of elbow that would come and go. On 05/08/23 he went back to surgery for right elbow revision repair common extensor tendon, irrigation and debridement, injection platelet rich plasma. Last week the incision and he was referred to the wound healing center for further evaluationand treatment of this wound. He is off work at this time. He has a history of Pre diabetes, last HbA1c 5.9 from 03/14/23. History of cardiacarrhythmia, tachycardia, HTN, hyperlipidemia, Sleep apnea, and back pain. He denies any fever, chills, nausea or vomiting. Progress of Wound: Right lateral elbow incision has a small separation with undermining, especiallyat 12 o'clock. It is smaller and the undermining has decreased with the packing of Iodoform gauze. There is no erythema. They are not having a difficulty withthe wound care, but his states that she is starting to have a difficult time packing the iodoform into the undermining because of the decrease in size. Objective Data Objective Data Vital Signs: Vital Signs Temp Pulse Resp BP O2 Del Method 97 F L 85 16 134/87 H Room Air 06/10/23 09:18 06/10/23 09:18 06/10/23 09:18 06/10/23 09:18 06/10/23 09:18 Oxygen Delivery Method Room Air Weight: 285 lb Body Mass Index (BMI) 35.6 Charges/Coding Procedures Integumentary 111xxx-113xx: 16216 Rupesh subq tissue 20 sq cm/< Debridement Note Debridement Note Wound debrided: Lateral elbow incision Laterality: Right Type of Debridement: Excisional debridement Anesthesia Used: 5% Lidocaine Gel Depth: Down to and including healthy tissue and in the subcutaneous layer Percentage of wound debrided: 100 Instrument Used: 3mm curette Tissue Removed: non viable tissue and slough Severity: Fat Layer Exposed Bleeding Controlled with: Pressure and Compression and gauze Patient tolerated procedure: Patient tolerated procedure well Post-Debridement Measurements and Additional Note: Post-Debridement Measurements/Treatment WC - Nurse 1 - General Ulcer Assessment Start: 06/03/23 08:36 Freq: Status: Active Protocol: JES Activity Type Activity Date Activity User E-sign Co-sign Detail Recorded Client Recorded Date Recorded By Document 06/03/23 08:37 BMF Desktop 06/03/23 08:50 BMF Document 06/10/23 09:18 BM Desktop 06/10/23 09:26 BMF 06/03/23 06/10/23 08:37 09:18 WC - Today's Visit Information Type of service Follow-up Visit Follow-up Visit (Physician/SHREDDER TENDER (Physician/SHREDDER TENDER ) ) Arrival Mode Ambulatory Ambulatory Transfer Assistance None None Accompanied by Patient Identification Verified (Name & Yes Yes ) Patient Requires Transmission-Based No No Precautions Height and Weight Height 6 ft 3 in Weight 285 lb Weight in Pounds 285.0 lbs Body Mass Index (BMI) 35.6 35.6 BMI Classification Obese Obese BSA - Shameka 2.55 Vital Signs Temperature (97.8 F-99.1 F) 96.9 F L 97 F L Temperature Source Temporal Temporal Pulse Rate (60-100) 87 85 Pulse Location Monitor Monitor Respiratory Rate (12-18) 16 16 Respiratory rate source Observation Observation Oxygen Delivery Method Room Air Room Air Blood Pressure (90/60-120/80) 132/83 H 134/87 H Blood Pressure Mean (mm Hg) 99 102 Source Monitor Monitor Position Sitting Sitting Blood Pressure Location Left Arm Left Arm History Since Last Visit- (Skip if this is Patient's initial visit) Have you changed medications since your No last visit? Any new allergies or adverse reactions No Had a fall/change in ADL's that may No increase risk of falls Signs or symptoms of abuse and/or No neglect since last visit Have you been in the hospital since your No last visit? Has dressing in place as prescribed Yes Has compression in place as prescribed N/A Has offloadiing in place as prescribed N/A Experienced any changes in pain level or No management Left Footwear Regular Shoe Regular Shoe Right Footwear Regular Shoe Regular Shoe Pain Scale: 0-10 Numeric Is Patient Pain Free? Yes Yes Communication Assessment Preferred language Dutch Leather Finisher Required No Able to Read Yes Able to Write Yes Communication Tools None Right Hearing Abillity Normal Left Hearing Abillity Normal Visual Assistive Devices Glasses, Contacts Teaching Assessment Preferences Verbal,Written, Audio/Visual, Demonstration Barriers to Learning None Readiness To Learn Excellent Willingness to Engage in Self Management High Activies Readiness to Engage in Self Management High Activities Anxiety Level Calm Cooperation Cooperative Perception Coherent Interest in Health Problem Asks Questions Education Importance Acknowledges Need Does Patient Smoke tobacco or other No substances Smoking Status Never smoker Is Patient Diabetic Yes Functional Assessment Recent Decline in Ability to Perform Denies Any Declines Culture/Alevism/Academic Support Director Cultural/Alevism Needs that may affect No Treatment Plan Teaching: Wound Center *Welcome to the Wound Center -Person Taught Patient, Significant Other -Teaching Method Discussion -Response to teaching Verbalize understanding Welcome to the Wound Care Center English MORRISON - Nurse 1 - General Ulcer Measurement Start: 06/03/23 08:36 Freq: Status: Active Protocol: Activity Type Activity Date Activity User E-sign Co-sign Detail Recorded Client Recorded Date Recorded By Document 06/03/23 08:37 [facility] [email or web address] 06/03/23 08:50 [facility] Document 06/10/23 09:18 [facility] Desktop 06/10/23 09:26 BMF 06/03/23 06/10/23 08:37 09:18 Wound Center Nurse 1 #1- R ELBOW (POST OP) -Combined with other wound No No -Current Size (cm) - Length 0.1 0.3 -Current Size (cm) - Width 0.1 0.2 -Current Size (cm) - Depth 0.1 0.3 -Total Square Cm 0.01 0.06 -Date of Last Picture (Recall this 06/03/23 field) -Photo Taken Yes No -Tunneling No No -Undermining/Tunneling No No -Circular Undermining No No -Exudate Amt Medium Medium -Exudate Type Serous Serosanguineous -Wound Margin Distinct, Distinct, Outline Outline Attached Attached -Granulation Amt Large (67-100%) -Granulation Quality Red -Slough/Fibrin No -Necrosis Amt None Present (0 %) -Texture (Colleen-wound Skin Appearance) Assessed, Assessed, Localized Edema Localized Edema ,Scarring ,Scarring -Moisture (Colleen-wound Skin Appearance) Assessed Assessed -Color (Colleen-wound Skin Appearance) Erythema Assessed -Temperature (Colleen-wound Skin No Abnormality No Abnormality Appearance) (Pt Warm) (Pt Warm) -Tenderness on Palpation (Colleen-wound No No Skin Appearance) -Ulcer Cleansing Rinsed/ Rinsed/ Irrigated with Irrigated with Saline Saline -Foul Odor after Cleansing No No -Anesthetic Used 5% Lidocaine 5% Lidocaine Gel Gel TAMIKO - Nurse 2 - General Ulcer CM Notes Start: 06/03/23 08:36 Freq: Status: Active Protocol: Activity Type Activity Date Activity User E-sign Co-sign Detail Recorded Client Recorded Date Recorded By Document 06/03/23 09:17 [email or web address] 06/03/23 09:20 Document 06/10/23 09:42 Laptop 06/10/23 09:44 06/03/23 06/10/23 09:17 09:42 Wound Center Nurse 2 #1- R ELBOW (POST OP) -Time 09:18 09:42 -Correct Patient Yes Yes -Correct Side, Site, Position Yes Yes -Correct Procedure Yes Yes -Procedure Performed Yes Yes -Type of Procedure Debridement Debridement -Clinical Debridement Subcutaneous Subcutaneous -Tissue Removed Subcutaneous Subcutaneous -Post Debridement (cm) - Length 0.2 0.4 -Post Debridement (cm) - Width 0.2 0.3 -Post Debridement (cm) - Depth 0.3 0.2 -Total Square (Post) (cm) 0.04 0.12 -Area of Debridement (cm) - Length 0.2 0.4 -Area of Debridement (cm) - Width 0.2 0.3 -Total Square (Area) (cm) 0.04 0.12 -Tunneling Yes Yes -Tunneling Position (O'clock) 12 12 -Tunneling Distance (cm) 0.7 0.2 -Undermining/Tunneling No No -Circular Undermining No No -Wound/Ulcer Outcome Not Healed Not Healed -Ulcer Cleansing Rinsed/ Rinsed/ Irrigated with Irrigated with Saline Saline -Foul Odor after Cleansing No -Bioengineered Tissue No No -Bleeding Controlled with Pressure Pressure -Treatment Response Procedure Procedure Tolerated Well Tolerated Well -Offloading No No -Debridement - Subq, 1st 20sq cm Yes Yes Pain Scale: 0-10 Numeric Is Patient Pain Free? Yes Yes - Nurse 3 - General Ulcer D/C NN Start: 06/03/23 08:36 Freq: Status: Active Protocol: Activity Type Activity Date Activity User E-sign Co-sign Detail Recorded Client Recorded Date Recorded By Document 06/03/23 09:28 [facility] Desktop 06/03/23 09:29 [facility] Document 06/10/23 09:57 [facility] Desktop 06/10/23 09:58 [facility] 06/03/23 06/10/23 09:28 09:57 Wound Care Center Nurse 3 #1- R ELBOW (POST OP) -Ulcer Cleansing Rinsed/ Rinsed/ Irrigated with Irrigated with Saline Saline -Foul Odor after Cleansing No No -Primary Dressing Applied Nugauze, Promogran Iodoform 1/4in Trena Matter -Other Dressing PER DL BIOLOGY MANAGER -Primary Dressing Covered/Secured with Dry Gauze, Dry Gauze, Secured with Secured with Tape Tape -Other Covering silicone tape -Nugauze, Iodoform 1/4in 1 -Promogran Trena Matter 1 Right -Compression Wrap Cat Wrap Cat Wrap -Other CAT TO SECURE cat to secure Treatment Response Procedure Procedure Tolerated Well Tolerated Well Pain Scale: 0-10 Numeric Is Patient Pain Free? Yes Yes WC - Visit Discharge Discharge Condition Stable Stable Ambulatory Status Ambulatory Ambulatory Transportation Private Auto Private Auto Accompanied by Assessment/Plan Assessment/Plan (1) Right lateral epicondylitis: CODE(S): M77.11 - Lateral epicondylitis, right elbow (2) Delayed surgical wound healing: CODE(S): T81.89XA - Other complications of procedures, not elsewhere classified, initial encounter PLAN: Plan Patient was evaluated at the wound healing center. Wound care - Stop the 1/4 Iodoform gauze and start placing Moistened Trena covered with gauze daily. To the skin tear above the wound, place adaptic and cover with gauze daily. Compression - CAT wrap start distally and wrap up arm. Lifting restriction and mobility as prescribed by Dr. Erickson. Continue antibiotics as previously prescribed. Follow up two weeks, due to me being out of town. Call if develop any concerns. 06/10/23 1353 <Electronically signed by Pily Guerrero NP [employer]ERIFFS DETECTIVE-C> Cosigner Signature (if applicable): CC: ~ Signed [facility] Work Phone: 1(234) 448-721410-23-2023 History and physical note Author Pily Guerrero [facility] June 03, 2023 4:59pm Note Date/Time June 03, 2023 1 1:13am [facility] [address] [place] [id number] H&P Exam - Wound Care 06/03/23 1112 MR#: [id number] Acct: [id number] Name: GIOVANNI JOHNSON Rep #:[id number] : 1975 48 From: Pily Moses SHERIFFS DETECTIVE [employer]ERIFFS DETECTIVE-C PCP: Dr. Kayleigh Singleton MD Status:R EG RCR Location: History of Present Illness Date of Service: 06/03/23 Chief Complaint: Right lateral elbow wound after surgery 05/08/23 History of Wound: 48 year old male presents for evaluation of his non healing surgical wound from 05/08/23 of his right lateral elbow. He initially injured this elbow at work on 03/19/22 while lifting a cabinet. He had surgery 08/22/22 forright elbow arthroscopy debridement and repair of common extensor by Dr. Erickson. Patient states that he was doing well with OT, then developed a seroma on lateral side of elbow that would come and go. On 05/08/23 he went back to surgery for right elbow revision repair common extensor tendon, irrigation and debridement, injection platelet rich plasma. Last week the incision and he was referred to the wound healing center for further evaluationand treatment of this wound. He is off work at this time. He has a history of Pre diabetes, last HbA1c 5.9 from 03/14/23. History of cardiacarrhythmia, tachycardia, HTN, hyperlipidemia, Sleep apnea, and back pain. He denies any fever, chills, nausea or vomiting. Progress of Wound: Right lateral elbow incision is healed except for the center of the incision there is a small separation with undermining, especially at 12 o'clock. There is no erythema. Patient states that Dr. Erickson did a wound culture last week and started him on Cephalexin and clindamycin. Wound culture from 05/30/23 did not have enough volume to centrifuge the specimen. The gram stain showe +2 WBC,+4 RBC, and +1 Gram positive cocci. [facility] Medical History Arrhythmia Back pain BiPAP (biphasic positive airway pressure) dependence Cardiology follow-up encounter Colon cancer screening COVID-19 De Quervain's tenosynovitis, right Elevated liver enzymes Essential hypertension Fatty liver Gastric reflux Gout Health care maintenance History of echocardiogram History of stress test Hypersomnolence Loose, teeth Mixed hyperlipidemia Obesity Osteoarthritis of carpometacarpal joint of right thumb Pain of right thumb Partial tear of common extensor tendon of right elbow Prediabetes Restless legs Right lateral epicondylitis Strain of right biceps Tachycardia Type 2 diabetes mellitus Wears contact lenses Home Medications pramipexole 1.5 mg tablet 1.5 mg PO QHS #90 tabs 02/22/23 [Rx Last Taken Unknown] diltiazem HCl 300 mg capsule,24 hr,extended release 300 mg PO QPM #90 caps 03/14/23 [Rx Last Taken Unknown] gabapentin 400 mg capsule 400 mg PO QHS #90 caps 03/14/23 [Rx Last Taken Unknown] omeprazole 40 mg capsule,delayed release 40 mg PO DAILY #90 caps 03/14/23 [Rx Last Taken 05/08/23] lisinopril 40 mg tablet 40 mg PO QDAY #90 tabs 03/19/23 [Rx Last Taken Unknown] allopurinol 300 mg tablet 300 mg PO DAILY #90 tabs 05/06/23 [Rx Last Taken Unknown] hydrochlorothiazide 25 mg tablet 25 mg PO QPM #90 tabs 05/06/23 [Rx Last Taken Unknown] cephalexin 500 mg capsule 500 mg PO Q6H infection 7 days #28 caps 05/28/23 [Rx Last Taken Unknown] clindamycin HCl 300 mg capsule 300 mg PO Q6H infection 10 days #40 caps 05/30/23[Rx Last Taken Unknown] Allergy/AdvReac Type Severity Reaction Status Date / Time doxycycline Allergy Unknown Hives Verified 06/03/23 10:05 colchicine AdvReac Severe Emesis Verified 06/03/23 10:05 Family History Mother Hypertension Grandfather Heart disease Myocardial infarction, Onset Age: 62 Grandmother Hypertension Heart disease Father Liver failure Surgical History History of hernia repair History of sinus surgery Hx of colonoscopy Hx of elbow surgery Social History Smoking Status: Never smoker alcohol intake: current alcohol intake frequency: holidays/special occasions only substance use type: does not use caffeine: Yes Type: coffee Number of servings: 2 and tea Number of servings: 2 what type of physical activity do you participate in: walking frequency: 1-2 times per week ROS Constitutional Constitutional: Denies body ache(s), chills or fever(s) Eyes Eyes: Reports none ENT HEENT: Reports other Details: history of chronic sinusitis with multiple sinus procedures Cardiovascular Cardiovascular: Reports irregular heart rhythm Respiratory/Chest Respiratory/Chest: Reports none Gastrointestinal Gastrointestinal: Reports none Genitourinary Genitourinary: Reports none Musculoskeletal Musculoskeletal: Reports as per HPI Integumentary Integumentary: Reports as per HPI Neurologic Neurologic: Reports none Psychiatric Psychiatric: Reports none Endocrine Endocrinology: Reports none Vital Signs Vital Signs Vital Signs: 06/03/23 08:37 Temperature 96.9 F L Temperature Source Temporal Pulse Rate 87 Respiratory Rate 16 Blood Pressure 132/83 H Blood Pressure Mean 99 Blood Pressure Source Monitor Blood Pressure Position Sitting Blood Pressure Location Left Arm Oxygen Delivery Method Room Air Weight Weight: 285 lb Body Mass Index (BMI) 35.6 Physical Exam Const alert, oriented x3, no apparent distress and well nourished General Appearance: cooperative HEENT normocephalic Head and Scalp: normocephalic Eyes General Eye: normal appearance of both eyes Neck full ROM Lymph Lymphatic: no lymphedema noted Resp normal respiratory effort, normal air movement and clear to auscultation bilaterally Effort and Inspection: able to speak in complete sentences Cardio regular rate and regular rhythm GI soft to palpation, non-tender and non-distended Back/Spine normal ROM Extremity normal capillary refill Extremity Narrative: Right lateral elbow incision is healed except for the center of the incision there is a small separation with undermining, especially at 12 o'clock. There is no erythema. Skin Wound Narrative: Right lateral elbow incision is healed except for the center of the incision there is a small separation with undermining, especially at 12 o'clock. There is no erythema. Neuro oriented x3 and moves all extremities Debridement Note Debridement Note Wound debrided: Lateral elbow incision Laterality: Right Type of Debridement: Excisional debridement Anesthesia Used: 5% Lidocaine Gel Depth: Down to and including healthy tissue and in the subcutaneous layer Percentage of wound debrided: 100 Instrument Used: - (#1) Tissue Removed: non viable tissue and slough Severity: Fat Layer Exposed Bleeding Controlled with: Pressure and Compression and gauze Patient tolerated procedure: Patient tolerated procedure well Debridement Free Text: Probed wound opening and debrided the undersurface of thedermis and subcutaneous tissue in the undermined area surrounding the wound opening. Post-Debridement Measurements and Additional Note: Post-Debridement Measurements/Treatment WC - Nurse 1 - General Ulcer Assessment Start: 06/03/23 08:36 Freq: Status: Active Protocol: JES Activity Type Activity Date Activity User E-sign Co-sign Detail Recorded Client Recorded Date Recorded By Document 06/03/23 08:37 BMF Desktop 06/03/23 08:50 BMF 06/03/23 08:37 WC - Today's Visit Information Type of service Follow-up Visit (Physician/SHREDDER TENDER ) Arrival Mode Ambulatory Transfer Assistance None Accompanied by Patient Identification Verified (Name & Yes ) Patient Requires Transmission-Based No Precautions Height and Weight Height 6 ft 3 in Weight 285 lb Weight in Pounds 285.0 lbs Body Mass Index (BMI) 35.6 BMI Classification Obese BSA - Shameka 2.55 Vital Signs Temperature (97.8 F-99.1 F) 96.9 F L Temperature Source Temporal Pulse Rate (60-100) 87 Pulse Location Monitor Respiratory Rate (12-18) 16 Respiratory rate source Observation Oxygen Delivery Method Room Air Blood Pressure (90/60-120/80) 132/83 H Blood Pressure Mean 99 Source Monitor Position Sitting Blood Pressure Location Left Arm History Since Last Visit- (Skip if this is Patient's initial visit) Left Footwear Regular Shoe Right Footwear Regular Shoe Pain Scale: 0-10 Numeric Is Patient Pain Free? Yes Communication Assessment Preferred language Dutch Leather Finisher Required No Able to Read Yes Able to Write Yes Communication Tools None Right Hearing Abillity Normal Left Hearing Abillity Normal Visual Assistive Devices Glasses, Contacts Teaching Assessment Preferences Verbal,Written, Audio/Visual, Demonstration Barriers to Learning None Readiness To Learn Excellent Willingness to Engage in Self Management High Activies Readiness to Engage in Self Management High Activities Anxiety Level Calm Cooperation Cooperative Perception Coherent Interest in Health Problem Asks Questions Education Importance Acknowledges Need Does Patient Smoke tobacco or other No substances Smoking Status Never smoker Is Patient Diabetic Yes Functional Assessment Recent Decline in Ability to Perform Denies Any Declines Culture/Alevism/Academic Support Director Cultural/Alevism Needs that may affect No Treatment Plan Teaching: Wound Center *Welcome to the Wound Center -Person Taught Patient, Significant Other -Teaching Method Discussion -Response to teaching Verbalize understanding Welcome to the Wound Care Center English MORRISON - Nurse 1 - General Ulcer Measurement Start: 06/03/23 08:36 Freq: Status: Active Protocol: Activity Type Activity Date Activity User E-sign Co-sign Detail Recorded Client Recorded Date Recorded By Document 06/03/23 08:37 BMF Desktop 06/03/23 08:50 [facility] 06/03/23 08:37 Wound Center Nurse 1 #1- R ELBOW (POST OP) -Combined with other wound No -Current Size (cm) - Length 0.1 -Current Size (cm) - Width 0.1 -Current Size (cm) - Depth 0.1 -Total Square Cm 0.01 -Date of Last Picture (Recall this 06/03/23 field) -Photo Taken Yes -Tunneling No -Undermining/Tunneling No -Circular Undermining No -Exudate Amt Medium -Exudate Type Serous -Wound Margin Distinct, Outline Attached -Texture (Colleen-wound Skin Appearance) Assessed, Localized Edema ,Scarring -Moisture (Colleen-wound Skin Appearance) Assessed -Color (Colleen-wound Skin Appearance) Erythema -Temperature (Colleen-wound Skin No Abnormality Appearance) (Pt Warm) -Tenderness on Palpation (Colleen-wound No Skin Appearance) -Ulcer Cleansing Rinsed/ Irrigated with Saline -Foul Odor after Cleansing No -Anesthetic Used 5% Lidocaine Gel WC - Nurse 2 - General Ulcer CM Notes Start: 06/03/23 08:36 Freq: Status: Active Protocol: Activity Type Activity Date Activity User E-sign Co-sign Detail Recorded Client Recorded Date Recorded By Document 06/03/23 09:17 Desktop 06/03/23 09:20 06/03/23 09:17 Wound Center Nurse 2 -Time 09:18 -Correct Patient Yes -Correct Side, Site, Position Yes -Correct Procedure Yes -Procedure Performed Yes -Type of Procedure Debridement -Clinical Debridement Subcutaneous -Tissue Removed Subcutaneous -Post Debridement (cm) - Length 0.2 -Post Debridement (cm) - Width 0.2 -Post Debridement (cm) - Depth 0.3 -Total Square (Post) (cm) 0.04 -Area of Debridement (cm) - Length 0.2 -Area of Debridement (cm) - Width 0.2 -Total Square (Area) (cm) 0.04 -Tunneling Yes -Tunneling Position (O'clock) 12 -Tunneling Distance (cm) 0.7 -Undermining/Tunneling No -Circular Undermining No -Wound/Ulcer Outcome Not Healed -Ulcer Cleansing Rinsed/ Irrigated with Saline -Bioengineered Tissue No -Bleeding Controlled with Pressure -Treatment Response Procedure Tolerated Well -Offloading No -Debridement - Subq, 1st 20sq cm Yes Pain Scale: 0-10 Numeric Is Patient Pain Free? Yes - Nurse 3 - General Ulcer D/C NN Start: 06/03/23 08:36 Freq: Status: Active Protocol: Activity Type Activity Date Activity User E-sign Co-sign Detail Recorded Client Recorded Date Recorded By Document 06/03/23 09:28 [facility] Desktop 06/03/23 09:29 [facility] 06/03/23 09:28 Wound Care Center Nurse 3 #1- R ELBOW (POST OP) -Ulcer Cleansing Rinsed/ Irrigated with Saline -Foul Odor after Cleansing No -Primary Dressing Applied Nugauze, Iodoform 1/4in -Other Dressing PER DL BIOLOGY MANAGER -Primary Dressing Covered/Secured with Dry Gauze, Secured with Tape -Nugauze, Iodoform 1/4in 1 Right -Compression Wrap Cat Wrap -Other CAT TO SECURE Treatment Response Procedure Tolerated Well Pain Scale: 0-10 Numeric Is Patient Pain Free? Yes WC - Visit Discharge Discharge Condition Stable Ambulatory Status Ambulatory Transportation Private Auto Accompanied by Charges/Coding Visit Charges Office Visits / Consults: 34566 OV L3 Est (25 modifier) Procedures Integumentary 111xxx-113xx: 35678 Rupesh subq tissue 20 sq cm/< Assessment/Plan Assessment/Plan (1) Right lateral epicondylitis: CODE(S): M77.11 - Lateral epicondylitis, right elbow (2) Delayed surgical wound healing: CODE(S): T81.89XA - Other complications of procedures, not elsewhere classified, initial encounter PLAN: Plan Patient was evaluated at the wound healing center. Wound care - Pack 1/4 Iodoform gauze into the undermined area at 12 o'clock daily and cover with gauze. The patient mentioned that Dr. Erickson wanted Trena used, but with the small size of the wound opening, it is too difficult to place in the wound and the Iodoform will hopefully be able to help decrease that undermining to heal this opening. Compression - CAT wrap start distally and wrap up arm. Lifting restriction and mobility as prescribed by Dr. Erickson. Continue antibiotics as previously prescribed. Follow up one week. Call if develop any concerns. 06/03/23 5075 <Electronically signed by Pily Guerrero NP SHERIFFS DETECTIVE-C> Cosigner Signature (if applicable): CC: ~ Signed [facility] Work Phone: 1(313) 803-208808-23-2023 Hospital Discharge instructions Patient Education 04/03/2023 14:45:42 [...] care provider or pharmacist before using an iwqn-wgl-iotzwsf cough medicine. You may use acetaminophen or ibuprofen to control pain, unless another medicine was prescribed. If you have chronic liver or kidney disease, talk with your provider before using these medicines. Alsotalk with your provider if you ve had a stomach ulcer or GI bleeding. Follow-up care Follow up with your health care provider, or as advised. When to seek medical advice Call your health care provider right away if any of these occur: A change in the type of pain. This means if it feels different, gets worse, lasts longer, or beginsto spread into your shoulder, arm, neck, jaw, or back. Pain doesn t go away in 1 week Shortness of breath, difficulty breathing, or fast breathing Pain gets worse when you breathe Cough with dark-colored sputum (phlegm) or blood Weakness, dizziness, or fainting Fever of 101 F (38.3 C) or higher, or as directed by your health care provider [phone] [employer]. [address] [place] [address], [place] [address]. All rights reserved. This information is not intended as a substitute for professional medical care. Always follow yourhealthcare professional's instructions. Follow Up Care 04/03/2023 13:15:13 With:KAYLEIGH SINGLETON MD Address: [address] [place] [phone] When:2-4 days [facility] Judith Barker 08-23-2023 Note Discharge Instructions Thank you for allowing [facility] to assist you with your healthcare needs. The following is importantdischarge information regarding your hospital visit. Diagnosis from Today's Visit Rib/trunk pain-swelling Strain of chest wall muscle What to Do Next Instructions from Your Care Team Discharge Return to Work, School, or Sports (Return to Work, School, or Sports) - Ordered -- May return to: work, no heavy lifting x 3 days, minimal twisting and climbing, 04/03/23 14:45:00EDT Post Acute Orders No qualifying data available. You Need to Schedule the Following Appointments Follow Up with KAYLEIGH SINGLETON MD When Within 2-4 days Where: [address] [place] [address] [phone] Allergies colchicine doxycycline Medications Please ask your primary doctor or pharmacist before taking any other medication not listed, including over the counter drugs, herbal medications, vitamins and or supplements as they may interact withyour home medications. What How Much When Why Instructions Last Dose New acetaminophen-hydrocodone (Alliance 325- 5 mg oral tablet) 1 tab(s) [...] care provider or pharmacist before using an xuwc-tbv-npuftkz cough medicine. You may use acetaminophen or ibuprofen to control pain, unless another medicine was prescribed. If you have chronic liver or kidney disease, talk with your provider before using these medicines. Alsotalk with your provider if you ve had a stomach ulcer or GI bleeding. Follow-up care Follow up with your health care provider, or as advised. When to seek medical advice Call your health care provider right away if any of these occur: A change in the type of pain. This means if it feels different, gets worse, lasts longer, or beginsto spread into your shoulder, arm, neck, jaw, or back. Pain doesn t go away in 1 week Shortness of breath, difficulty breathing, or fast breathing Pain gets worse when you breathe Cough with dark-colored sputum (phlegm) or blood Weakness, dizziness, or fainting Fever of 101 F (38.3 C) or higher, or as directed by your health care provider [phone] [employer]. [address] [place] [address], [place] [address]. All rights reserved. This information is not intended as a substitute for professional medical care. Always follow yourhealthcare professional's instructions. Additional Information VACCINATE! IT SAVES LIVES! Members of the community who have not yet received the COVID-19 vaccine and would like to receive it can visit one of [facility] vaccine clinics. There are many vaccine clinic locations within the [facility]. For locations and available times, please visit www.[email or web address].[place].gov/. It is important to note that some COVID mobile vaccine clinics are held outdoors and may be canceled in rainy or stormy conditions. To learn more about pediatric vaccinations (ages 5-11), we invite you to visit the [facility] webpage. [email or web address] learn more about the COVID-19 vaccine, we invite you to visit the CDC website for a list of frequently asked questions. https://www.cdc.gov/coronavirus/2019-ncov/vaccines/faq.html [employer] Patient Portal Access Instructions: Stay connected with your healthcare team and access your personal medical information anytime with the [facility] Patient Portal. If you would like a full copy of your medical records please contact the [facility] Medical Records Department Saturday through Saturday between 8a.m. and 4:30p.m. Please follow the directions below to access the portal: 1.Access the email account you provided upon registration to the hospital.2.Look for an invitation email from [facility].3.Open the email and access the invitation link: Accept Invitation to [facility]4.Fill in the required navas to create your account. Sign into [email or web address] with your username and password that you [...] you will allow to register on the [facility] Patient Portal for access to your information. You can also access the [facility] Patient Portal on the [email or web address] amira. Simply click on Health Records under Yi Deta and then click on the [facility] logo. HOW TO SAFELY DISPOSE OF PRESCRIPTION MEDICATIONS Please use one of the following methods to safely dispose of your unused medications. 1.Use a drug disposal kit: the drug disposal pouch allows you to safely discard your old and unuseddrugs. Ask your nurse to give you one when you are discharged.2.Visit a local take-back location: Many local pharmacies and police departments have programs that collect old and unwanted prescriptiondrugs. Call your local pharmacy or go to http://Kaldoora.GitCafe/3A1Kz8y to find one close to you.3.Make use of household items: Use cat litter or old coffee grounds to dispose medications if other options arenot available. Mix your drugs with these household products, seal them in an airtight container andthrow it into the garbage. Call [facility]: [phone] to be sure your drugs can be [...] drowsiness, such as benzodiazepines, also known as benzos,including diazepam and alprazolam, muscle relaxants or sleep aids. Never sell or share prescriptionopioids. This is illegal. Store opioids in a secure place and out of reach of others (including children, family, friends and visitors). The last page(s) of this document has been signed and retained as a CHART COPY Signatures Patient Education Materials CHEST WALL STRAIN(CUSTOM) Medication Leaflets My discharge plan and instructions have been reviewed and explained to me and IELIZABETH AARON P understand my current condition and have read and understand these discharge instructions. I have received a written copy of the plan/instructions. If I have questions, I am aware that I should contact my doctor. Patient/Fiscal Assistant Signature: Date/Time: Relationship to Patient: Witness Name/Signature: Date/Time: [facility]08-23-2023 Note ORIGINAL EXAMINATION: 2 XRAY VIEWS OF [...] Date: 04/03/2023 2:25:02 PM [facility]ing [facility] Discharge summary Author Darlene Henderson [facility] February 04, 2023 4:56pm Note Date/Time February 04, 2023 4:56 pm [facility] Occupational Therapy [facility] [place] [address] / REHABILITATION SERVICES DISCHARGE SUMMARY MR#: [id number] Acct: [id number] Name: GIOVANNI JOHNSON Rep #: [id number] : 1975 47 From: Darlene WILSON/L, CHT Referring Dr.: Dr. Seymour Erickson MD Status: REG RCR Eval Date: Discharge Date: It has been my pleasure to treat GIOVANNI JOHNSON under orders from Dr. Seymour Erickson MD, for the diagnosis of right lateral epicondylitis for a totalof 6 visit(s). Please see the following information for a summary of their discharge status. % Improvement: 70 Objective/Function: right press bucker strength 120# (pt has had right press bucker strength at 140#) left is 145#. right lateral pinch 22#, L-22#. right tripod pinch 16#, L- 16#. wrist resistive extension tested with FEt2 peak force in pounds right wrist ext. 18.7# left 20#. pt states he is IND with all ADLs and IADLs. 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 pt states hedoes notice soreness at the end of his 8 hour work day and more soreness toward the end of the week. Patient Goals: Regain Mobility, Regain Strength, Decrease Pain, Return to Work, Use Hand/Wrist/Arm Normally Again Goal:100% adherence to protocol: Yes Goal:Daily scar massage when approriate: Yes Goal:ROM equal to unaffected hand: Yes Goal:Physician Neonatology/Pinch strength at least 75% of unaffected hand: Yes Goal:No pain with affected hand use: Yes Goal:Full use of affected hand in daily activities including: Yes Goal:Decrease scar hypersensitivity: Yes Plan: pt would benefit from health and wellness program or continue UB exercise program to continue to make gains to return to his PLOF. Pts job does require heavy lift requirements. Discharge Comments: pt was seen for 31 OT sessions following sx procedure of right elbow- lateral epi extensor tendon release. Pt make good gains with his ROM and strength - he does continue to have some residual soreness with increaseuse. pt made good gains with strength but would benefit from continued PRE of Health and wellness or HEP to continue to strength for pt to return to his PLOF as his job duties required heavy lifting. pt agrees with d/c If there are questions or concerns regarding this patient's occupational therapy, please fell free to call me at [phone]. Thank you for the referral of this patient. Sincerely, Darlene Henderson, OTR/L, CHT <Electronically signed by Darlene Santiago OTR/L, CHT> 02/04/23 6334 CC: Dr. Kayleigh Singleton MD; Dr. Seymour Erickson MD ~ MK Signed [facility] Work Phone: [phone]) 750-852412-06-2022 Influenza virus A and B RNA and SARS-CoV-2 (COVID-19) N gene panel DANGELO+probe (Resp)COVID 19 RESULT: SARS-CoV-2 (Agent of COVID-19) Not Detected by RT-PCR or equivalent method. logan [email or web address]-[employer]nfl[employer] (MILLER)_EUA This test was developed and its performance characteristics determined by [facility]ology [facility] [place]. This test has been authorized by FDA under an Emergency Use Authorization (EUA). This test has been validated in accordance with the FDA's Guidance Document Policy for DiagnosticsTesting in Laboratories Certified to Perform High Complexity Testing under CLIA prior to Emergency use Authorization for Coronavirus Disease 2019 during the Public Health Emergency issued on October 10, 2019. Test performed by [facility], [facility] and Laboratory Medicine [place], [address] [place] [address]. INFLUENZA A PCR: Negative for Influenza A by RT-PCR INFLUENZA B PCR: Negative for Influenza B by RT-PCRVan Wert County HospitalComment on above: Performed By: #### [id number] #### [facility] CLIA [id number] [address] [place], [place] [address] [address] [place] OF [id number] NoteHNO ID: [id number] Author: Anya Mancera APRN.SHREDDER TENDER Service: ? Author Type: Nurse Practitioner Type: Progress Notes Filed: 07/17/2022 10:45 AM Note Text: Subjective The history is provided by the patient. No manager language was used. HPI Giovanni Johnson is a 47 year old male who presents today for CC of sore throat and uvula swelling. He is also having cough and congestion. This started yesterday. He has used ibuprofen, dayquil/nyquil with short term relief. Denies any known exposure to covid, flu or strep BP 132/86 Pulse 98 Temp 36.6 ?C (97.9 ?F) (Tympanic) Resp 16 Wt 132 kg (291 lb) SpO2 97% BMI 36.37 kg/m? Social History Tobacco Use Smoking status: Never Smokeless tobacco: Never Vaping Use Vaping Use: Never used Substance Use Topics Alcohol use: Yes Comment: occasionally Drug use: No PAST MEDICAL HISTORY Diagnosis Date Arrhythmia a fib? Gout Hyperlipidemia Hypertension Obesity (BMI 30-39.9) PO (obstructive sleep apnea) 04/12/2017 moderate Prediabetes I have confirmed and edited as necessary, the [facility] Review of Systems Constitutional: Positive for malaise/fatigue. Negative for chills and fever. HENT: Positive for congestion, sinus pain and sore throat. Negative for ear pain. Respiratory: Positive for cough. Negative for sputum production, shortness of breath and wheezing. Cardiovascular: Negative for chest pain. Gastrointestinal: Negative for abdominal pain, diarrhea, nausea and vomiting. Musculoskeletal: Positive for myalgias. Neurological: Positive for headaches. Objective Physical Exam Vitals and nursing note reviewed. Constitutional: Appearance: He is not toxic-appearing. HENT: Head: Normocephalic and atraumatic. Right Ear: Tympanic membrane, ear canal and external ear normal. Left Ear: Tympanic membrane, ear canal and external ear normal. Nose: Mucosal edema, congestion and rhinorrhea present. Right Sinus: No maxillary sinus tenderness or frontal sinus tenderness. Left Sinus: No maxillary sinus tenderness or frontal sinus tenderness. Mouth/Throat: Pharynx: Uvula midline. Pharyngeal swelling, posterior oropharyngeal erythema and uvula swelling present. No oropharyngeal exudate. Tonsils: No tonsillar abscesses. Cardiovascular: Rate and Rhythm: Normal rate and regular rhythm. Heart sounds: Normal heart sounds. Pulmonary: Effort: Pulmonary effort is normal. Breath sounds: Normal breath sounds. No decreased breath sounds, wheezing, rhonchi or rales. Lymphadenopathy: Head: Right side of head: No submental, submandibular, tonsillar or preauricular adenopathy. Left side of head: No submental, submandibular, tonsillar or preauricular adenopathy. Cervical: No cervical adenopathy. Right cervical: No superficial cervical adenopathy. Left cervical: No superficial cervical adenopathy. Neurological: Mental Status: He is alert. ASSESSMENT/PLAN: 1. Sore throat - ICD9: 462, ICD10: J02.9 (primary diagnosis) - suspect viral - Alere Strep Test negative, no culture pending If covid is negative will start prednisone for swelling - STREP A MOLECULAR (POC) 2. URI with cough and congestion - ICD9: 465.9, ICD10: J06.9 - Discussed viral etiology and rationale for treatment. - Symptomatic treatment with prn analgesia - Supportive care with fluids and rest Home isolation Testing ordered Comfort measures discussed - see patient instructions. When to seek higher level of care Notified in 12-24 hours with results, available on [employer] - COVID WITH FLUA+B, ROUTINE Diagnosis and treatment plan were discussed and questions were answered to the patient's satisfaction. Pt acknowledged understanding of concepts and follow up plan. Specific signs and symptoms that would indicate the need for higher level of care were discussed in detail warranting prompt ER evaluation. Anya Mancera APRN.CNPVan [facility]ert [facility] Hospital12-06-2022 Instructions* Patient Instructions* Anya Mancera APRN.CNP - 07/17/2022 10:39 AM EST Strep is negative Tylenol (generic acetaminophen) 500 mg-2 tabs every 8 hrs. as needed for fever and aches Ibuprofen 600 mg (3-200mg tablets) every 6 hours Rest, increase water intake Motrin or Tylenol as needed for fever or pain. Salt water gargles, chloraseptic spray or lozenges as needed for sore throat. Warm beverages, honey. Nasal saline spray as needed Cool mist humidifier at night If covid is negative start prednisone for swelling * Prednisone 40 mg (2 tablets) per day for 5 days, take in morning or early in day * Do not NSAIDs during this 5 day course (ibuprofen, naproxen, Motrin, Aleve, Advil) Tylenol only during prednisone use * Follow up with primary care provider if no improvement with treatment * Seek medical care immediately, call 911, go to ER if you have chest pain, difficulty breathing, shortness of breath, inability to swallow. documented in this encounterGerman Hospital12-06-2022 History of Present illness Narrative* Anya Mancera APRN.SHREDDER TENDER - 07/17/2022 10:13 AM EST Subjective The history is provided by the patient. No manager language was used. HPI Giovanni Johnson is a 47 year old male who presents today for CC of sore throat and uvula swelling. He is also having cough and congestion. This started yesterday. He has used ibuprofen, dayquil/nyquil with short term relief. Denies any known exposure to covid, flu or strep BP 132/86 Pulse 98 Temp 36.6 C (97.9 F) (Tympanic) Resp 16 Wt 132 kg (291 lb) SpO2 97% BMI 36.37 kg/m Social History Tobacco Use Smoking status: Never Smokeless tobacco: Never Vaping Use Vaping Use: Never used Substance Use Topics Alcohol use: Yes Comment: occasionally Drug use: No PAST MEDICAL HISTORY Diagnosis Date Arrhythmia a fib? Gout Hyperlipidemia Hypertension Obesity (BMI 30-39.9) PO (obstructive sleep apnea) 04/12/2017 moderate Prediabetes I have confirmed and edited as necessary, the [facility] Review of Systems Constitutional: Positive for malaise/fatigue. Negative for chills and fever. HENT: Positive for congestion, sinus pain and sore throat. Negative for ear pain. Respiratory: Positive for cough. Negative for sputum production, shortness of breath and wheezing. Cardiovascular: Negative for chest pain. Gastrointestinal: Negative for abdominal pain, diarrhea, nausea and vomiting. Musculoskeletal: Positive for myalgias. Neurological: Positive for headaches. Objective Physical Exam Vitals and nursing note reviewed. Constitutional: Appearance: He is not toxic-appearing. HENT: Head: Normocephalic and atraumatic. Right Ear: Tympanic membrane, ear canal and external ear normal. Left Ear: Tympanic membrane, ear canal and external ear normal. Nose: Mucosal edema, congestion and rhinorrhea present. Right Sinus: No maxillary sinus tenderness or frontal sinus tenderness. Left Sinus: No maxillary sinus tenderness or frontal sinus tenderness. Mouth/Throat: Pharynx: Uvula midline. Pharyngeal swelling, posterior oropharyngeal erythema and uvula swelling present. No oropharyngeal exudate. Tonsils: No tonsillar abscesses. Cardiovascular: Rate and Rhythm: Normal rate and regular rhythm. Heart sounds: Normal heart sounds. Pulmonary: Effort: Pulmonary effort is normal. Breath sounds: Normal breath sounds. No decreased breath sounds, wheezing, rhonchi or rales. Lymphadenopathy: Head: Right side of head: No submental, submandibular, tonsillar or preauricular adenopathy. Left side of head: No submental, submandibular, tonsillar or preauricular adenopathy. Cervical: No cervical adenopathy. Right cervical: No superficial cervical adenopathy. Left cervical: No superficial cervical adenopathy. Neurological: Mental Status: He is alert. ASSESSMENT/PLAN: 1. Sore throat - ICD9: 462, ICD10: J02.9 (primary diagnosis) - suspect viral - Alere Strep Test negative, no culture pending If covid is negative will start prednisone for swelling - STREP A MOLECULAR (POC) 2. URI with cough and congestion - ICD9: 465.9, ICD10: J06.9 - Discussed viral etiology and rationale for treatment. - Symptomatic treatment with prn analgesia - Supportive care with fluids and rest Home isolation Testing ordered Comfort measures discussed - see patient instructions. When to seek higher level of care Notified in 12-24 hours with results, available on [employer] - COVID WITH FLUA+B, ROUTINE Diagnosis and treatment plan were discussed and questions were answered to the patient's satisfaction. Pt acknowledged understanding of concepts and follow up plan. Specific signs and symptoms that would indicate the need for higher level of care were discussed indetail warranting prompt ER evaluation. Anya Mancera APRN.KE documented in this encounterGerman Hospital10-24-2022 NoteHNO ID: [id number] Author: RT Silvia(R) Service: ? Author Type: Technologist Type: Progress Notes Filed: 06/04/2022 10:01 AM Note Text: Radiology Service Progress Note PATIENT NAME: Giovanni Johnson DATE OF SERVICE: June 04, 2022 TIME: 9:56 AM PATIENT IDENTITY VERIFICATION COMPLETED USING TWO (2) IDENTIFIERS: Name and Date of confirmed by patient verbally. FALL SCREENING: Has the patient had 2 falls in the last year or 1 fall with injury or currently using an Ambulatory Assistive Device (Walker, Cane, Wheelchair, Crutches, etc.)? No PATIENT GENDER DATA: Male PATIENT RELEVANT IMPLANT DATA REVIEWED: Not Applicable RADIOLOGY DEPARTMENT: General X-ray: Exam(s) Completed: Chest X-Ray PERIPHERAL IV DATA: Not applicable SIGNED BY: RT Silvia(R) June 04, 2022 9:56 [facility]10-24-2022 History of Present illness Narrative* Sony Marrufo RT(R) - 06/04/2022 9:40 AM EDT Radiology Service Progress Note PATIENT NAME: Giovanni Johnson DATE OF SERVICE: June 04, 2022 TIME: 9:56 AM PATIENT IDENTITY VERIFICATION COMPLETED USING TWO (2) IDENTIFIERS: Name and Date of confirmedby patient verbally. FALL SCREENING: Has the patient had 2 falls in the last year or 1 fall with injury or currently using an Ambulatory Assistive Device (Walker, Cane, Wheelchair, Crutches, etc.)? No PATIENT GENDER DATA: Male PATIENT RELEVANT IMPLANT DATA REVIEWED: Not Applicable RADIOLOGY DEPARTMENT: General X-ray: Exam(s) Completed: Chest X-Ray PERIPHERAL IV DATA: Not applicable SIGNED BY: RT Silvia(R) June 04, 2022 9:56 AM documented in this encounterGerman Hospital10-23-2022 NoteHNO ID: [id number] Author: Lillian Bermudez APRN.SHREDDER TENDER Service: ? Author Type: Nurse Practitioner Type: Progress Notes Filed: 06/03/2022 9:15 AM Note Text: CC: Patient presents with: Cough: Nasal congestion x10 days HPI: Giovanni Johnson is a 47 year old male who presents to the office with complaint of head congestion and cough, nonproductive for 10 days. Symptoms are staying the same. Associated symptoms includes cough. Denies headache, body aches, fever, nausea, vomiting , and diarrhea. Treatments tried include nothing so far. with no relief of symptoms. Sick contacts: unknown. History of asthma, frequent episodes of bronchitis, chronic bronchitis, bronchiectasis or COPD: No Smoker: No Seasonal/environmental allergies: No The ROS is otherwise negative. The patient's pmh, medications, allergies, and past visits are reviewed. PHYSICAL EXAM: BP 122/84 Pulse 103 Temp 36.2 ?C (97.2 ?F) Resp 20 Wt 133.3 kg (293 lb 12.8 oz) SpO2 97% BMI 36.72 kg/m? General appearance: alert, cooperative, pleasant, in no acute distress Head: Normocephalic Eyes: EOM's intact, conjunctiva pink and moist, no icterus, sclera white, non-injected Ears: Right ear: External ear/canal- Normal, TM - clear with good landmarks. Left ear: External ear/canal- Normal, TM - clear with good landmarks Oropharynx:moist without lesions, No erythema, exudates or tonsillar hypertrophy. Heart: Negative. RRR without obvious murmur, gallop, or rubs. No ectopy. Lungs: clear to auscultation, without rales or wheeze, good air exchange PAST MEDICAL HISTORY Diagnosis Date Arrhythmia a fib? Gout Hyperlipidemia Hypertension Obesity (BMI 30-39.9) PO (obstructive sleep apnea) 04/12/2017 moderate Prediabetes PAST SURGICAL HISTORY Procedure Laterality Date NONE PAST SURGICAL HISTORY OF double hernia as an ALLERGIES [facility] MEDICATIONS diclofenac (VOLTAREN) 1 % topical gel Apply to affected area as needed. GABAPENTIN ORAL Take 1 tablet by mouth once daily. 400mg daily allopurinol (ZYLOPRIM) 300 mg tablet Take 300 mg by mouth once daily. hydroCHLOROthiazide (HYDRODIURIL, ESIDRIX) 25 mg tablet Take 25 mg by mouth once daily. omeprazole (PRILOSEC) 40 mg capsule Take 40 mg by mouth once daily. pramipexole (MIRAPEX) 0.125 mg tablet Take 1 tablet by mouth daily at bedtime. (Patient taking differently: Take 0.75 mg by mouth daily at bedtime.) aspirin, enteric coated (ADULT LOW DOSE ASPIRIN) 81 mg EC tablet Take 1 tablet by mouth once daily. Ibuprofen 200 mg cap Take by mouth. 600-800mg daily as needed for pain diltiazem CD (CARDIZEM CD, CARTIA XT) 240 mg 24 hr capsule Take 1 capsule by mouth once daily. (Patient taking differently: Take 300 mg by mouth once daily.) lisinopril (ZESTRIL, PRINIVIL) 20 mg tablet Take 1 tablet by mouth once daily. (Patient taking differently: Take 40 mg by mouth once daily.) doxycycline (VIBRA-TABS) 100 mg tablet Take 1 tablet by mouth twice daily for 7 days. predniSONE (DELTASONE) 20 mg tablet Take 2 tablets by mouth once daily for 5 days. meloxicam (MOBIC) 15 mg tablet Take 15 mg by mouth once daily. (Patient not taking: Reported on 06/03/2022) CALCIUM CITRATE ORAL Take 500 mg by mouth once daily. (Patient not taking: Reported on 06/03/2022) potassium gluconate 550 mg (90 mg) tab Take by mouth once daily. (Patient not taking: Reported on 06/03/2022) celery seed oil, bulk, oil 500 mg once daily. (Patient not taking: Reported on 06/03/2022) naproxen (NAPROSYN) 500 mg tablet Take 1 tablet by mouth twice daily as needed (for pain/inflammation). Take with food. (Patient not taking: Reported on 06/03/2022) MAGNESIUM CARBONATE ORAL Take 400 mg by mouth once daily. (Patient not taking: Reported on 06/03/2022) CALCIUM CARBONATE (CALCIUM 500 ORAL) Take by mouth. (Patient not taking: Reported on 06/03/2022) CALCIUM CARBONATE/VITAMIN D3 (VITAMIN D-3 ORAL) Take by mouth. (Patient not taking: Reported on 06/03/2022) FAMILY HISTORY Problem Relation Age of Onset Hypertension Mother other (wilsons disease) Father Heart Maternal Grandfather 68 Stroke Paternal Grandfather 96 Social History Tobacco Use Smoking status: Never Smokeless tobacco: Never Vaping Use Vaping Use: Never used Substance Use Topics Alcohol use: Yes Comment: occasionally Drug use: No ASSESSMENT/PLAN: 1. Acute cough - ICD9: 786.2, ICD10: R05.1 - XR CHEST 2V FRONTAL/LAT Doxycycline twice a day for 7 days. Prednisone daily for 5 days patient will come Saturday morning and get a chest x-ray to rule out pneumonia. If medication needs adjusted we will adjust at that time. Prescription instructions reviewed with patient as applicable. Potential red flag symptoms discussed with the patient. Reviewed appropriate action plan to take if red flag symptoms occur. Patient agreeable to treatment plan. Lillian Bermudez APRN.[facility]10-23-2022 History of Present illness Narrative* Lillian Bermudez APRN.KE - 06/03/2022 9:09 AM EDT CC: Patient presents with: Cough: Nasal congestion x10 days HPI: Giovanni Johnson is a 47 year old male who presents to the office with complaint of head congestion and cough, nonproductive for 10 days. Symptoms are staying the same. Associated symptoms includes cough. Denies headache, body aches, fever, nausea, vomiting , and diarrhea. Treatments tried include nothing so far. with no relief of symptoms. Sick contacts: unknown. History of asthma, frequent episodes of bronchitis, chronic bronchitis, bronchiectasis or COPD: No Smoker: No Seasonal/environmental allergies: No The ROS is otherwise negative. The patient's pmh, medications, allergies, and past visits are reviewed. PHYSICAL EXAM: BP 122/84 Pulse 103 Temp 36.2 C (97.2 F) Resp 20 Wt 133.3 kg (293 lb 12.8 oz) SpO2 97% BMI 36.72 kg/m General appearance: alert, cooperative, pleasant, in no acute distress Head: Normocephalic Eyes: EOM's intact, conjunctiva pink and moist, no icterus, sclera white, non-injected Ears: Right ear: External ear/canal- Normal, TM - clear with good landmarks. Left ear: External ear/canal- Normal, TM - clear with good landmarks Oropharynx:moist without lesions, No erythema, exudates or tonsillar hypertrophy. Heart: Negative. RRR without obvious murmur, gallop, or rubs. No ectopy. Lungs: clear to auscultation, without rales or wheeze, good air exchange PAST MEDICAL HISTORY Diagnosis Date Arrhythmia a fib? Gout Hyperlipidemia Hypertension Obesity (BMI 30-39.9) PO (obstructive sleep apnea) 04/12/2017 moderate Prediabetes PAST SURGICAL HISTORY Procedure Laterality Date NONE PAST SURGICAL HISTORY OF double hernia as an infant ALLERGIES [facility] MEDICATIONS diclofenac (VOLTAREN) 1 % topical gel Apply to affected area as needed. GABAPENTIN ORAL Take 1 tablet by mouth once daily. 400mg daily allopurinol (ZYLOPRIM) 300 mg tablet Take 300 mg by mouth once daily. hydroCHLOROthiazide (HYDRODIURIL, ESIDRIX) 25 mg tablet Take 25 mg by mouth once daily. omeprazole (PRILOSEC) 40 mg capsule Take 40 mg by mouth once daily. pramipexole (MIRAPEX) 0.125 mg tablet Take 1 tablet by mouth daily at bedtime. (Patient taking differently: Take 0.75 mg by mouth daily at bedtime.) aspirin, enteric coated (ADULT LOW DOSE ASPIRIN) 81 mg EC tablet Take 1 tablet by mouth once daily. Ibuprofen 200 mg cap Take by mouth. 600-800mg daily as needed for pain diltiazem CD (CARDIZEM CD, CARTIA XT) 240 mg 24 hr capsule Take 1 capsule by mouth once daily. (Patient taking differently: Take 300 mg by mouth once daily.) lisinopril (ZESTRIL, PRINIVIL) 20 mg tablet Take 1 tablet by mouth once daily. (Patient taking differently: Take 40 mg by mouth once daily.) doxycycline (VIBRA-TABS) 100 mg tablet Take 1 tablet by mouth twice daily for 7 days. predniSONE (DELTASONE) 20 mg tablet Take 2 tablets by mouth once daily for 5 days. meloxicam (MOBIC) 15 mg tablet Take 15 mg by mouth once daily. (Patient not taking: Reported on 06/03/2022) CALCIUM CITRATE ORAL Take 500 mg by mouth once daily. (Patient not taking: Reported on 06/03/2022) potassium gluconate 550 mg (90 mg) tab Take by mouth once daily. (Patient not taking: Reported on 06/03/2022) celery seed oil, bulk, oil 500 mg once daily. (Patient not taking: Reported on 06/03/2022) naproxen (NAPROSYN) 500 mg tablet Take 1 tablet by mouth twice daily as needed (for pain/inflammation). Take with food. (Patient not taking: Reported on 06/03/2022) MAGNESIUM CARBONATE ORAL Take 400 mg by mouth once daily. (Patient not taking: Reported on 06/03/2022) CALCIUM CARBONATE (CALCIUM 500 ORAL) Take by mouth. (Patient not taking: Reported on 06/03/2022) CALCIUM CARBONATE/VITAMIN D3 (VITAMIN D-3 ORAL) Take by mouth. (Patient not taking: Reported on 06/03/2022) FAMILY HISTORY Problem Relation Age of Onset Hypertension Mother other (wilsons disease) Father Heart Maternal Grandfather 68 Stroke Paternal Grandfather 96 Social History Tobacco Use Smoking status: Never Smokeless tobacco: Never Vaping Use Vaping Use: Never used Substance Use Topics Alcohol use: Yes Comment: occasionally Drug use: No ASSESSMENT/PLAN: 1. Acute cough - ICD9: 786.2, ICD10: R05.1 - XR CHEST 2V FRONTAL/LAT Doxycycline twice a day for 7 days. Prednisone daily for 5 days patient will come Saturday morning and get a chest x-ray to rule out pneumonia. If medication needs adjusted we will adjust at that time. Prescription instructions reviewed with patient as applicable. Potential red flag symptoms discussed with the patient. Reviewed appropriate action plan to take if red flag symptoms occur. Patient agreeable to treatment plan. Lillian Bermudez APRN.CNP [facility] No data available for this section [facility] Evaluation note* Diagnosis Onset Date Resolution Status Health care maintenance acut e Borderline type 2 diabetes mellitus chronic Essential hypertension chron ic Restless leg syndrome chroni c Tachycardia chronic Colon cancer screening acute [facility] Work Phone: Evaluation note* Diagnosis Onset Date Resolution Status Health care maintenance acut e Borderline type 2 diabetes mellitus chronic Essential hypertension chron ic Restless leg syndrome chroni c Tachycardia chronic Colon cancer screening acute Strain of right elbow acute Right lateral epicondylitis acute Strain of right biceps acute [facility] Work Phone: Evaluation note* Diagnosis Onset Date Resolution Status Colon cancer screening acute Strain of right elbow acute Right lateral epicondylitis acute Strain of right biceps acute Strain of right biceps acute Strain of right elbow acute Right lateral epicondylitis acute Strain of right biceps acute [facility] Work Phone: Evaluation note* Diagnosis Acute [facility]- [facility] Date Resolution Status Colon cancer screening acute Strain of right elbow acute Right lateral epicondylitis acute Strain of right biceps acute Strain of right biceps acute Strain of right elbow acute Right lateral epicondylitis acute Strain of right biceps acute Right lateral epicondylitis acute Strain of right biceps acute Strain of right elbow acute Right lateral epicondylitis acute Strain of right biceps acute Right lateral epicondylitis acute Pruritic dermatitis noneacti ve [facility] Work Phone: Evaluation note* Diagnosis Sore throat- Primary Acute pharyngitis URI with cough and congestion [facility] Onset Date Resolution Status Strain of right elbow acute Right lateral epicondylitis acute Strain of right biceps acute Strain of right biceps acute Strain of right elbow acute Right lateral epicondylitis acute Strain of right biceps acute Right lateral epicondylitis acute Strain of right biceps acute Strain of right elbow acute Right lateral epicondylitis acute Strain of right biceps acute Right lateral epicondylitis acute Pruritic dermatitis noneacti ve [facility] Work Phone: Evaluation note* Diagnosis Onset Date Resolution Status Preoperative cardiovascular examination acute Essential hypertension chron ic Mixed hyperlipidemia chronic Tachycardia chronic Right lateral epicondylitis acute Right lateral epicondylitis acute Right lateral epicondylitis acute Right lateral epicondylitis acute Right lateral epicondylitis acute Right lateral epicondylitis acute Right lateral epicondylitis acute Seroma after procedure acute [facility] Work Phone: Evaluation note* Diagnosis Onset Date Resolution Status Right lateral epicondylitis acute Right lateral epicondylitis acute Seroma after procedure acute Right lateral epicondylitis acute Seroma due to trauma acute Right lateral epicondylitis acute Seroma after procedure acute Borderline type 2 diabetes mellitus chronic Essential hypertension chron ic Hypersomnolence chronic Restless leg syndrome chroni c Tachycardia chronic Right lateral epicondylitis acute Seroma after procedure acute Right lateral epicondylitis acute [facility] Work Phone: Evaluation note* Diagnosis Onset Date Resolution Status Right lateral epicondylitis acute Seroma after procedure acute Right lateral epicondylitis acute Seroma due to trauma acute Right lateral epicondylitis acute Seroma after procedure acute Borderline type 2 diabetes mellitus chronic Essential hypertension chron ic Hypersomnolence chronic Restless leg syndrome chroni c Tachycardia chronic Right lateral epicondylitis acute Seroma after procedure acute Right lateral epicondylitis acute Right lateral epicondylitis acute [facility] Work Phone: Evaluation note* Diagnosis Onset Date Resolution Status Right lateral epicondylitis acute Seroma after procedure acute Right lateral epicondylitis acute Seroma due to trauma acute Right lateral epicondylitis acute Seroma after procedure acute Borderline type 2 diabetes mellitus chronic Essential hypertension chron ic Hypersomnolence chronic Restless leg syndrome chroni c Tachycardia chronic Right lateral epicondylitis acute Seroma after procedure acute Right lateral epicondylitis acute Right lateral epicondylitis acute Fatty liver disease, nonalcoholic acute Arrhythmia chronic Essential hypertension chron ic Restless leg syndrome chroni c Type 2 diabetes mellitus chr onic [facility] Work Phone: Evaluation note* Diagnosis Onset Date Resolution Status Right lateral epicondylitis acute Seroma due to trauma acute Right lateral epicondylitis acute Seroma after procedure acute Borderline type 2 diabetes mellitus chronic Essential hypertension chron ic Hypersomnolence chronic Restless leg syndrome chroni c Tachycardia chronic Right lateral epicondylitis acute Seroma after procedure acute Right lateral epicondylitis acute Right lateral epicondylitis acute Fatty liver disease, nonalcoholic acute Arrhythmia chronic Essential hypertension chron ic Restless leg syndrome chroni c Type 2 diabetes mellitus chr onic Osteoarthritis of carpometacarpal joint of right thumb acute Pain of right thumb acute Right lateral epicondylitis acute [facility] Work Phone: Evaluation note* Diagnosis Onset Date Resolution Status Right lateral epicondylitis acute Fatty liver disease, nonalcoholic acute Arrhythmia chronic Essential hypertension chron ic Restless leg syndrome chroni c Type 2 diabetes mellitus chr onic Osteoarthritis of carpometacarpal joint of right thumb acute Pain of right thumb acute Right lateral epicondylitis acute De Quervain's tenosynovitis, right acute Osteoarthritis of carpometacarpal joint of right thumb acute Pain of right thumb acute Partial tear of common extensor tendon of right elbow acute Right lateral epicondylitis acute Partial tear of common extensor tendon of right elbow acute Partial tear of common extensor tendon of right elbow acute Partial tear of common extensor tendon of right elbow acute Partial tear of common extensor tendon of right elbow acute Post-operative infection acu te Delayed surgical wound healing acute Right lateral epicondylitis acute Partial tear of common extensor tendon of right elbow acute Post-operative infection acu te [facility] Work Phone: Evaluation note* Diagnosis Onset Date Resolution Status Right lateral epicondylitis acute Fatty liver disease, nonalcoholic acute Arrhythmia chronic Essential hypertension chron ic Restless leg syndrome chroni c Type 2 diabetes mellitus chr onic Osteoarthritis of carpometacarpal joint of right thumb acute Pain of right thumb acute Right lateral epicondylitis acute De Quervain's tenosynovitis, right acute Osteoarthritis of carpometacarpal joint of right thumb acute Pain of right thumb acute Partial tear of common extensor tendon of right elbow acute Right lateral epicondylitis acute Partial tear of common extensor tendon of right elbow acute Partial tear of common extensor tendon of right elbow acute Partial tear of common extensor tendon of right elbow acute Partial tear of common extensor tendon of right elbow acute Post-operative infection acu te Partial tear of common extensor tendon of right elbow acute Post-operative infection acu te Delayed surgical wound healing acute Right lateral epicondylitis acute Delayed surgical wound healing acute Partial tear of common extensor tendon of right elbow acute Post-operative infection acu te [facility] Work Phone: Evaluation note* Diagnosis Onset Date Resolution Status Fatty liver disease, nonalcoholic acute Arrhythmia chronic Essential hypertension chron ic Restless leg syndrome chroni c Type 2 diabetes mellitus chr onic Osteoarthritis of carpometac arpal joint of right thumb acute Pain of right thumb acute Right lateral epicondylitis acute De Quervain's tenosynovitis, right acute Osteoarthritis of carpometac arpal joint of right thumb acute Pain of right thumb acute Partial tear of common exten sor tendon of right elbow acute Right lateral epicondylitis acute Partial tear of common exten sor tendon of right elbow acute Partial tear of common exten sor tendon of right elbow acute Partial tear of common exten sor tendon of right elbow acute Partial tear of common exten sor tendon of right elbow acute Post-operative infection acu te Partial tear of common exten sor tendon of right elbow acute Post-operative infection acu te Delayed surgical wound healing acute Right lateral epicondylitis acute Delayed surgical wound healing acute Partial tear of common exten sor tendon of right elbow acute Post-operative infection acu te Rib pain on left side acute Essential hypertension chron ic Gout chronic Type 2 diabetes mellitus chr onic Delayed surgical wound healing acute Partial tear of common exten sor tendon of right elbow acute Post-operative infection acu te Elbow pain noneactive Delayed surgical wound healing acute Right lateral epicondylitis acute [facility] Work Phone: Evaluation note* Diagnosis Onset Date Resolution Status Partial tear of common exten sor tendon of right elbow acute Right lateral epicondylitis acute Partial tear of common exten sor tendon of right elbow acute Partial tear of common exten sor tendon of right elbow acute Partial tear of common exten sor tendon of right elbow acute Partial tear of common exten sor tendon of right elbow acute Post-operative infection acu te Partial tear of common exten sor tendon of right elbow acute Post-operative infection acu te Delayed surgical wound healing acute Right lateral epicondylitis acute Delayed surgical wound healing acute Partial tear of common exten sor tendon of right elbow acute Post-operative infection acu te Rib pain on left side acute Essential hypertension chron ic Gout chronic Type 2 diabetes mellitus chr onic Delayed surgical wound healing acute Partial tear of common exten sor tendon of right elbow acute Post-operative infection acu te Elbow pain noneactive Delayed surgical wound healing acute Right lateral epicondylitis acute Delayed surgical wound healing acute Partial tear of common exten sor tendon of right elbow acute Post-operative infection acu te Delayed surgical wound healing acute Partial tear of common exten sor tendon of right elbow acute Post-operative infection acu te [facility] Work Phone: Evaluation note* Diagnosis Onset Date Resolution Status Partial tear of common exten sor tendon of right elbow acute Post-operative infection acu te Delayed surgical wound healing acute Right lateral epicondylitis acute Delayed surgical wound healing acute Partial tear of common exten sor tendon of right elbow acute Post-operative infection acu te Rib pain on left side acute Essential hypertension chron ic Gout chronic Type 2 diabetes mellitus chr onic Delayed surgical wound healing acute Partial tear of common exten sor tendon of right elbow acute Post-operative infection acu te Elbow pain noneactive Delayed surgical wound healing acute Right lateral epicondylitis acute Delayed surgical wound healing acute Partial tear of common exten sor tendon of right elbow acute Post-operative infection acu te Delayed surgical wound healing acute Partial tear of common exten sor tendon of right elbow acute Post-operative infection acu te Delayed surgical wound healing acute Partial tear of common exten sor tendon of right elbow acute Post-operative infection acu te Bronchitis acute Sinusitis acute Cough chronic Essential hypertension chron ic Mixed hyperlipidemia chronic Type 2 diabetes mellitus chr onic [facility] Work Phone: Evaluation note* Diagnosis Acute cough [facility] Diagnosis RLS (restless legs syndrome)- Primary Restless legs syndrome (RLS) PO (obstructive sleep apnea) Obstructive sleep apnea (adult) (pediatric) Class 2 obesity in adult, unspecified BMI, unspecified obesity type, unspecified whether serious comorbidity present documented in this encounter [facility] note* Diagnosis RLS (restless legs syndrome)- Primary Restless legs syndrome (RLS) PO (obstructive sleep apnea) Obstructive sleep apnea (adult) (pediatric) Class 2 obesity in adult, unspecified BMI, unspecified obesity type, unspecified whether serious comorbidity present documented in this encounter [facility] note* Diagnosis RLS (restless legs syndrome) Restless legs syndrome (RLS) documented in this encounter [facility] note* Diagnosis RLS (restless legs syndrome)- Primary Restless legs syndrome (RLS) PO (obstructive sleep apnea) Obstructive sleep apnea (adult) (pediatric) Vitamin D deficiency [facility] instructionsWSt[facility] Work Phone: Hospital Discharge instructionsAmbulatory Orders* Orthopedics Location: None Selected [facility] Work Phone: Hospital Discharge instructionsAmbulatory Orders* PT Referral Location: None Selected [facility] Work Phone: Reason for referral (narrative)No reason for referral information availableWSt. John of God Hospital Work Phone: Summary Purpose Family History No Family History Records Found Relationship Condition Age at Onset Recorded Date/T siri mother Hypertension Unknown grandfather Cardiac disease Unknown Myocardial infarction 62 grandmother Hypertension Unknown Cardiac disease Unknown father Liver failure Unknown Advance Directives No Advanced Directives Records Found Advance Directive Response Recorded Date/ Time Living Will No March 22 2 8:25am Power of Front Desk Assistant No March 22 8:25am Advance Directive Response Recorded Date/ Time Living Will No March 27 2 11:26am Power of Front Desk Assistant No March 27 11:26am Advance Directive Response Recorded Date/ Time Living Will No March 27 2 10:26am Power of Front Desk Assistant No March 27 10:26am Advance Directive Response Recorded Date/ Time Living Will No November 22, 2022 3:58pm Power of Front Desk Assistant No November 22 3:58pm Advance Directive Response Recorded Date/ Time Living Will No April 24, 2023 9:07am Power of Front Desk Assistant No April 9:07am Advance Directive Response Recorded Date/ Time Living Will No June 10 2:15pm Power of Front Desk Assistant No June 10, 2023 2:15pm Advance Directive Response Recorded Date/ Time Living Will No June 24 023 11:30am Power of Front Desk Assistant No June 24, 2023 11:30am Advance Directive Response Recorded Date/ Time Living Will No August 13 1:21pm Power of Front Desk Assistant No August 13 024 1:21pm Advance Directive Response Recorded Date/ Time Living Will No December 16, 2023 9: 39am Power of Front Desk Assistant No December 16, 2023 9:39am Chief Complaint and Reason for Visit Chief Complaint annual exam Amb Documentation Reason for Visit Health care [facility] Borderline type 2 diabetes mellitus Essential hypertension Restless leg syndrome Tachycardia Colon cancer screening Chief Complaint annual exam Amb Documentation EORDER- RIGHT- elbow pain R ELBOW PAIN/INJURY/JAKE ALEX CONSTR OBWC/BICEP INJURY/AJKE ALEX CONS Reason for Visit Health care [facility] Borderline type 2 diabetes mellitus Essential hypertension Restless leg syndrome Tachycardia Colon cancer screening Strain of right elbow Right lateral epicondylitis Strain of right biceps Chief Complaint Amb Documentation EORDER- RIGHT- elbow pain R ELBOW PAIN/INJURY/JAKE ALEX CONSTR OBWC/BICEP INJURY/JAKE ALEX CONS Right elbow RIGHT ELBOW INJURY RIGHT ELBOW Reason for Visit Colon cancer screeni ng Strain of right elbow Right lateral epicondylitis Strain of right biceps Strain of right biceps Strain of right elbow Right lateral epicondylitis Strain of right biceps Chief Complaint EORDER- RIGHT- elbow pain R ELBOW PAIN/INJURY/JAKE ALEX CONSTR OBWC/BICEP INJURY/JAKE ALEX CONS Right elbow RIGHT ELBOW INJURY RIGHT ELBOW RIGHT ELBOW R LAT EPICONDYLITIS,STRAIN OF R BICEPS/DR TO FAX RIGHT ELBOW RIGHT ELBOW ITCHY LEGS Reason for Visit Colon cancer screeni ng Strain of right elbow Right lateral epicondylitis Strain of right biceps Strain of right biceps Strain of right elbow Right lateral epicondylitis Strain of right biceps Right lateral epicondylitis Strain of right biceps Strain of right elbow Right lateral epicondylitis Strain of right biceps Right lateral epicondylitis Pruritic dermatitis Chief Complaint EORDER- RIGHT- elbow pain R ELBOW PAIN/INJURY/JAKE ALEX CONSTR OBWC/BICEP INJURY/JAKE ALEX CONS Right elbow RIGHT ELBOW INJURY RIGHT ELBOW RIGHT ELBOW R LAT EPICONDYLITIS,STRAIN OF R BICEPS/DR TO FAX RIGHT ELBOW RIGHT ELBOW ITCHY LEGS TONSILITIS Reason for Visit Strain of right elbo w Right lateral epicondylitis Strain of right biceps Strain of right biceps Strain of right elbow Right lateral epicondylitis Strain of right biceps Right lateral epicondylitis Strain of right biceps Strain of right elbow Right lateral epicondylitis Strain of right biceps Right lateral epicondylitis Pruritic dermatitis Chief Complaint 1 Y FU RT KNEE ELBOW ARTHROSCOPY, DEBRIDE & REPAIR RT KNEE ELBOW ARTHROSCOPY, DEBRIDE & REPAIR right elbow RIGHT ELBOW Plantar fascial fibromatosis RIGHT ELBOW RIGHT ELBOW ELBOW R BICEPS/DR TO FAX RIGHT ELBOW RIGHT ELBOW EORDERS? Reason for Visit Preoperative cardiov ascular examination Essential hypertension Mixed hyperlipidemia Tachycardia Right lateral epicondylitis Right lateral epicondylitis Right lateral epicondylitis Right lateral epicondylitis Right lateral epicondylitis Right lateral epicondylitis Right lateral epicondylitis Seroma after procedure Chief Complaint ELBOW RIGHT ELBOW RIGHT ELBOW EORDERS? RIGHT ELBOW RIGHT ELBOW 1 Y FU E ORDER RIGHT ELBOW HYPERSOMNOLENCE ELEVATED LIVER ENZYMES RIGHT ELBOW R BICEPS/DR TO FAX Reason for Visit Right lateral epicon dylitis Right lateral epicondylitis Seroma after procedure Right lateral epicondylitis Seroma due to trauma Right lateral epicondylitis Seroma after procedure Borderline type 2 diabetes mellitus Essential hypertension Hypersomnolence Restless leg syndrome Tachycardia Right lateral epicondylitis Seroma after procedure Right lateral epicondylitis Chief Complaint ELBOW RIGHT ELBOW RIGHT ELBOW EORDERS? RIGHT ELBOW RIGHT ELBOW 1 Y FU E ORDER RIGHT ELBOW HYPERSOMNOLENCE ELEVATED LIVER ENZYMES RIGHT ELBOW R BICEPS/DR TO FAX PO; BIPAP S *DEVICE TAGGED Reason for Visit Right lateral epicon dylitis Right lateral epicondylitis Seroma after procedure Right lateral epicondylitis Seroma due to trauma Right lateral epicondylitis Seroma after procedure Borderline type 2 diabetes mellitus Essential hypertension Hypersomnolence Restless leg syndrome Tachycardia Right lateral epicondylitis Seroma after procedure Right lateral epicondylitis Chief Complaint RIGHT ELBOW RIGHT ELBOW EORDERS? RIGHT ELBOW RIGHT ELBOW 1 Y FU E ORDER RIGHT ELBOW HYPERSOMNOLENCE ELEVATED LIVER ENZYMES RIGHT ELBOW R BICEPS/DR TO FAX PO; BIPAP S *DEVICE TAGGED RIGHT ELBOW E ORDER Reason for Visit Right lateral epicon dylitis Seroma after procedure Right lateral epicondylitis Seroma due to trauma Right lateral epicondylitis Seroma after procedure Borderline type 2 diabetes mellitus Essential hypertension Hypersomnolence Restless leg syndrome Tachycardia Right lateral epicondylitis Seroma after procedure Right lateral epicondylitis Right lateral epicondylitis Chief Complaint RIGHT ELBOW RIGHT ELBOW EORDERS? RIGHT ELBOW RIGHT ELBOW 1 Y FU E ORDER RIGHT ELBOW HYPERSOMNOLENCE ELEVATED LIVER ENZYMES RIGHT ELBOW R BICEPS/DR TO FAX PO; BIPAP S *DEVICE TAGGED RIGHT ELBOW E ORDER E ORDERS 3 m fu Reason for Visit Right lateral epicon dylitis Seroma after procedure Right lateral epicondylitis Seroma due to trauma Right lateral epicondylitis Seroma after procedure Borderline type 2 diabetes mellitus Essential hypertension Hypersomnolence Restless leg syndrome Tachycardia Right lateral epicondylitis Seroma after procedure Right lateral epicondylitis Right lateral epicondylitis Fatty liver disease, nonalcoholic Arrhythmia Essential hypertension Restless leg syndrome Type 2 diabetes mellitus Chief Complaint RIGHT ELBOW RIGHT ELBOW 1 Y FU E ORDER RIGHT ELBOW HYPERSOMNOLENCE ELEVATED LIVER ENZYMES RIGHT ELBOW R BICEPS/DR TO FAX PO; BIPAP S *DEVICE TAGGED RIGHT ELBOW E ORDER E ORDERS 3 m fu RT ELBOW POSTOP RIGHT ELBOW RM 2 Reason for Visit Right lateral epicon dylitis Seroma due to trauma Right lateral epicondylitis Seroma after procedure Borderline type 2 diabetes mellitus Essential hypertension Hypersomnolence Restless leg syndrome Tachycardia Right lateral epicondylitis Seroma after procedure Right lateral epicondylitis Right lateral epicondylitis Fatty liver disease, nonalcoholic Arrhythmia Essential hypertension Restless leg syndrome Type 2 diabetes mellitus Osteoarthritis of carpometacarpal joint of right thumb Pain of right thumb Right lateral epicondylitis Chief Complaint R BICEPS/DR TO FAX PO; BIPAP S *DEVICE TAGGED RIGHT ELBOW E ORDER E ORDERS 3 m fu RT ELBOW POSTOP RIGHT ELBOW RM 2 RIGHT HAND Right elbow revision repair common Right elbow revision repair common right elbow right elbow RIGHT ELBOW RIGHT ELBOW wound RIGHT ELBOW wound Reason for Visit Right lateral epicon dylitis Fatty liver disease, nonalcoholic Arrhythmia Essential hypertension Restless leg syndrome Type 2 diabetes mellitus Osteoarthritis of carpometacarpal joint of right thumb Pain of right thumb Right lateral epicondylitis De Quervain's tenosynovitis, right Osteoarthritis of carpometacarpal joint of right thumb Pain of right thumb Partial tear of common extensor tendon of right elbow Right lateral epicondylitis Partial tear of common extensor tendon of right elbow Partial tear of common extensor tendon of right elbow Partial tear of common extensor tendon of right elbow Partial tear of common extensor tendon of right elbow Post-operative infection Delayed surgical wound healing Right lateral epicondylitis Partial tear of common extensor tendon of right elbow Post-operative infection Chief Complaint RIGHT ELBOW E ORDER E ORDERS 3 m fu RT ELBOW POSTOP RIGHT ELBOW RM 2 RIGHT HAND Right elbow revision repair common Right elbow revision repair common right elbow right elbow RIGHT ELBOW RIGHT ELBOW RIGHT ELBOW wound wound wound RIGHT ELBOW Reason for Visit Right lateral epicon dylitis Fatty liver disease, nonalcoholic Arrhythmia Essential hypertension Restless leg syndrome Type 2 diabetes mellitus Osteoarthritis of carpometacarpal joint of right thumb Pain of right thumb Right lateral epicondylitis De Quervain's tenosynovitis, right Osteoarthritis of carpometacarpal joint of right thumb Pain of right thumb Partial tear of common extensor tendon of right elbow Right lateral epicondylitis Partial tear of common extensor tendon of right elbow Partial tear of common extensor tendon of right elbow Partial tear of common extensor tendon of right elbow Partial tear of common extensor tendon of right elbow Post-operative infection Partial tear of common extensor tendon of right elbow Post-operative infection Delayed surgical wound healing Right lateral epicondylitis Delayed surgical wound healing Partial tear of common extensor tendon of right elbow Post-operative infection Chief Complaint E ORDERS 3 m fu RT ELBOW POSTOP RIGHT ELBOW RM 2 RIGHT HAND Right elbow revision repair common Right elbow revision repair common right elbow right elbow RIGHT ELBOW RIGHT ELBOW RIGHT ELBOW wound wound wound RIGHT ELBOW 3 M FU Elbow pain wound wound wound R ELBOW DR EM [place] Reason for Visit Fatty liver disease, nonalcoholic Arrhythmia Essential hypertension Restless leg syndrome Type 2 diabetes mellitus Osteoarthritis of carpometacarpal joint of right thumb Pain of right thumb Right lateral epicondylitis De Quervain's tenosynovitis, right Osteoarthritis of carpometacarpal joint of right thumb Pain of right thumb Partial tear of common extensor tendon of right elbow Right lateral epicondylitis Partial tear of common extensor tendon of right elbow Partial tear of common extensor tendon of right elbow Partial tear of common extensor tendon of right elbow Partial tear of common extensor tendon of right elbow Post-operative infection Partial tear of common extensor tendon of right elbow Post-operative infection Delayed surgical wound healing Right lateral epicondylitis Delayed surgical wound healing Partial tear of common extensor tendon of right elbow Post-operative infection Rib pain on left side Essential hypertension Gout Type 2 diabetes mellitus Delayed surgical wound healing Partial tear of common extensor tendon of right elbow Post-operative infection Elbow pain Delayed surgical wound healing Right lateral epicondylitis Chief Complaint Right elbow revision repair common Right elbow revision repair common right elbow right elbow RIGHT ELBOW RIGHT ELBOW RIGHT ELBOW wound wound wound RIGHT ELBOW 3 M FU Elbow pain wound wound wound LEFT ELBOW LEFT ELBOW R ELBOW DR EM [place] Reason for Visit Partial tear of comm on extensor tendon of right elbow Right lateral epicondylitis Partial tear of common extensor tendon of right elbow Partial tear of common extensor tendon of right elbow Partial tear of common extensor tendon of right elbow Partial tear of common extensor tendon of right elbow Post-operative infection Partial tear of common extensor tendon of right elbow Post-operative infection Delayed surgical wound healing Right lateral epicondylitis Delayed surgical wound healing Partial tear of common extensor tendon of right elbow Post-operative infection Rib pain on left side Essential hypertension Gout Type 2 diabetes mellitus Delayed surgical wound healing Partial tear of common extensor tendon of right elbow Post-operative infection Elbow pain Delayed surgical wound healing Right lateral epicondylitis Delayed surgical wound healing Partial tear of common extensor tendon of right elbow Post-operative infection Delayed surgical wound healing Partial tear of common extensor tendon of right elbow Post-operative infection Chief Complaint RIGHT ELBOW wound wound wound RIGHT ELBOW 3 M FU Elbow pain wound wound wound LEFT ELBOW LEFT ELBOW R ELBOW DR EM [place] LEFT ELBOW acute - persistant cough/sore throat/sinuses 3 M FU Reason for Visit Partial tear of comm on extensor tendon of right elbow Post-operative infection Delayed surgical wound healing Right lateral epicondylitis Delayed surgical wound healing Partial tear of common extensor tendon of right elbow Post-operative infection Rib pain on left side Essential hypertension Gout Type 2 diabetes mellitus Delayed surgical wound healing Partial tear of common extensor tendon of right elbow Post-operative infection Elbow pain Delayed surgical wound healing Right lateral epicondylitis Delayed surgical wound healing Partial tear of common extensor tendon of right elbow Post-operative infection Delayed surgical wound healing Partial tear of common extensor tendon of right elbow Post-operative infection Delayed surgical wound healing Partial tear of common extensor tendon of right elbow Post-operative infection Bronchitis Sinusitis Cough Essential hypertension Mixed hyperlipidemia Type 2 diabetes mellitus Chief Complaint Admit Date 3 M FU July 06, 2024 8:59am 3 M FU October 05, 2024 8:39am PE NON DOT PHYSICAL/ [facility] October 09, 2024 2:20pm Reason for Visit Admit Date Essential hypertension July 06 8:59am Restless leg syndrome July 06 8:59am Tachycardia July 06, 2024 8:59am Type 2 diabetes mellitus July 06, 2024 8:59am Essential hypertension October 05 8:39am Restless leg syndrome October 05 8:39am Sleep apnea October 05, 2024 8:39am Type 2 diabetes mellitus October 05, 2024 8:39am Encounter for pre-employment health scre ening examination October 09, 2024 2:20pm Chief Complaint Admit Date 3 M FU October 05, 2024 8:39am PE NON DOT PHYSICAL/ [facility] October 09, 2024 2:20pm 3 m fu January 08, 2025 1:25p m Reason for Visit Admit Date Essential hypertension October 05 8:39am Restless leg syndrome October 05 8:39am Sleep apnea October 05, 2024 8:39am Type 2 diabetes mellitus October 05, 2024 8:39am Encounter for pre-employment health scre ening examination October 09, 2024 2:20pm Reason for Visit Admit Date Essential hypertension October 05 8:39am Restless leg syndrome October 05 8:39am Sleep apnea October 05, 2024 8:39am Type 2 diabetes mellitus October 05, 2024 8:39am Encounter for pre-employment health scre ening examination October 09, 2024 2:20pm Essential hypertension January 08, 2025 1: 25pm Gastroesophageal reflux disease December 1:25pm Leg cramps January 08, 2025 1:25p m Restless leg syndrome January 08, 2025 1:2 5pm Type 2 diabetes mellitus January 08, 2025 1:25pm Chief Complaint Admit Date 3 M FU October 05, 2024 8:39am PE NON DOT PHYSICAL/ [facility] October 09, 2024 2:20pm 3 m fu January 08, 2025 1:25p m FATTY LIVER January 22, 2025 1:58 pm Health Concerns Infection Onset Date Last Indicated Resolved Time COVID-19 Rule-Out 07/17/2022 07/17/2022 Additional Source Comments (unrecognized sect ion and content) No Status Records FoundNo Status Records FoundNo Status Records FoundNo Status Records FoundNo Status Records FoundNo Status Records Found INFORMATION SOURCE (unrecogn ized section and content) DATE CREATED AUTHOR 01/29/2018 [facility] DATE CREATED AUTHOR AUTHOR'S ORGANIZ ATION 02/05/2018 [facility] DATE CREATED AUTHOR AUTHOR'S ORGANIZ ATION 07/18/2022 [facility] DATE CREATED AUTHOR AUTHOR'S ORGANIZ ATION 04/11/2023 [facility] ([place]) DATE CREATED AUTHOR AUTHOR'S ORGANIZ ATION 01/08/2025 [facility] DATE CREATED AUTHOR AUTHOR'S ORGANIZ ATION 01/30/2025 [facility] Source Comments (unrecognize d section and content) In the event this informatio n is protected by the Federal Confidentiality of Alcohol and Drug Abuse Patient Records regulations: The Federal rules restrict any use of the information to criminally investigate or prosecute any alcohol or drug abuse patient.[facility] the event this information is protected by the Federal Confidentiality of Alcohol and Drug Abuse Patient Records regulations: The Federal rules restrict any use of the information to criminally investigate or prosecute any alcohol or drug abuse patient.[facility] the event this information is protected by the Federal Confidentiality of Alcohol and Drug Abuse Patient Records regulations: The Federal rules restrict any use of the information to criminally investigate or prosecute any alcohol or drug abuse patient.[facility] Reason for Visit (unrecogniz ed section and content) Reason Comments Cough Nasal congestion x10 days Reason Comments Cough Cough, ST and conges tion x 1 day Reason Onset Date Comments Other 08/10/2024 Sleep Med Referr al Reason Comments New Patient Restless Legs Specialty Diagnoses / Procedures Referred By Contac t Referred To Contact Sleep Medicine Diagnoses Restless legs syndrome Procedures [place] OFFICE/OUTPATIENT NEW MODERATE MDM 45 MINUTES Kayleigh Singleton [address] [place] [address] Phone: tel: fax: [facility] Sleep Medicine - [address] [place] [address] Phone: tel: fax: Referral ID Status Reason Start Date Expiration Date Visits Re quested Visits Authorized [id number] Closed 08/10/2024 08/10/2025 1 1 Reason Comments Follow-up Medication change Reason Onset Date Comments Med Refill 11/30/2024 Reason Onset Date Comments Cpap 11/27/2024 Reason Onset Date Comments Appointment 11/09/2024 Reason Comments Follow-up 6 week follow up amira t, new mask is not working well, however, pressures are working very well. Care Teams (unrecognized sec tion and content) Shredder Tender Relationship Specialty Start Date End Date Kayleigh Singleton MD [address] [place], [place] [phone] PCP - General Internal Medicine 06/03/22 Shredder Tender Relationship Specialty Start Date End Date Kayleigh Singleton MD [address] [place] [address] PCP - General Internal Medicine 06/03/22 Team Status: Active Member Role Status Dates Dr. Kayleigh Singleton MD Family Provider Active Dr. Kayleigh Singleton MD Primary Care Provider Active Team Status: Inactive Member Role Status Dates Dr. Kayleigh Singleton MD Primary Care Provider, Refer ring Provider Active Dr. Galileo Samaniego MD Attending Provider Active Team Status: Active Member Role Status Dates Dr. Kayleigh Singleton MD Primary Care Provider Active Seymour Erickson MD Attending Provider, Referring Provider, Other Provider Active Team Status: Inactive Member Role Status Dates Dr. Kayleigh Singleton MD Primary Care Provider, Refer ring Provider Active Seymour Erickson MD Attending Provider Active Team Status: Inactive Member Role Status Dates Dr. Kayleigh Singleton MD Primary Care Provider Active Seymour Erickson MD Attending Provider, Referring Prov ider Active Team Status: Inactive Member Role Status Dates Dr. Kayleigh Singleton MD Primary Care Provider Active Dr. Moy Syed DPM Attending Provider Active Team Status: Active Member Role Status Dates Dr. Kayleigh Singleton MD Primary Care Provider Active Seymour Erickson MD Attending Provider, Referring Prov ider Active Team Status: Inactive Member Role Status Dates Dr. Kayleigh Singleton MD Primary Care P rovider, Attending Provider, Referring Provider Active Team Status: Inactive Member Role Status Dates Dr. Kayleigh Singleton MD Primary Care Provider, Atten ding Provider Active Team Status: Inactive Member Role Status Dates Dr. Kayleigh Singleton MD Primary Care Provider Active Seymour Erickson MD Attending Provider Active Team Status: Inactive Member Role Status Dates Dr. Kayleigh Singleton MD Primary Care Provider Active Dr. Toby Clark MD Attending Provider Active Team Status: Active Member Role Status Dates Dr. Kayleigh Singleton MD Primary Care Provider Active Pily Guerrero SHERIFFS DETECTIVE, SHERIFFS DETECTIVE-C Attending Provider, Other P rovider Active Seymour Erickson MD Referring Provider Active Team Status: Active Member Role Status Dates Dr. Kayleigh Singleton MD Primary Care Provider Active Pily Guerrero SHERIFFS DETECTIVE, SHERIFFS DETECTIVE-C Attending Provider Active Seymour Erickson MD Referring Provider Active Team Status: Inactive Member Role Status Dates Dr. Kayleigh Singleton MD Primary Care Provider Active Pily Guerrero SHERIFFS DETECTIVE, SHERIFFS DETECTIVE-C Attending Provider Active Seymour Erickson MD Referring Provider Active Team Status: Active Member Role Status Dates Dr. Kayleigh Singleton MD Primary Care Provider Active Pily Guerrero SHERIFFS DETECTIVE, SHERIFFS DETECTIVE-C Attending Pro vider, Referring Provider, Other Provider Active Team Status: Active Member Role Status Dates Dr. Kayleigh Singleton MD Primary Care Provider Active Seymour Erickson MD Attending Provider Active Team Status: Inactive Member Role Status Dates Dr. Kayleigh Singleton MD Primary Care Provider Active Dr. Roe Combs MD Attending Provider, Refe rring Provider Active Team Status: Inactive Member Role Status Dates Dr. Kayleigh Singleton MD Primary Care Provider, Refer ring Provider Active Evie Beltran NP-C Attending Provider Active Shredder Tender Relationship Specialty Start Date End Date Kayleigh Singleton MD [address] [address] PCP - General Internal Medicine 06/03/22 Shredder Tender Relationship Specialty Start Date End Date JeanaleishaKayleigh aguiar [address] [place] [address] PCP - General Internal Medicine 08/10/24 Shredder Tender Relationship Specialty Start Date End Date Jeannikko Mckenziestormemir Sampson [address] [place] [address] PCP - General Internal Medicine 08/10/24 Shredder Tender Relationship Specialty Start Date End Date JeanaleishaKayleigh aguiar [address] [place] [address] PCP - General Internal Medicine 08/10/24 Team Status: Inactive Member Role Status Dates Dr. Kayleigh Singleton MD Primary Care Provider Active Start: July 06, 2024 End: July 06, 2024 Dr. Kayleigh Singleton MD Attending Provider Active Start: July 06, 2024 End: July 06, 2024 Dr. Kayleigh Singleton MD Referring Provider Active Start: July 06, 2024 End: July 06, 2024 Team Status: Inactive Member Role Status Dates Dr. Kayleigh Singleton MD Primary Care Provider Active Start: October 05, 2024 End: October 05, 2024 Dr. Kayleigh Singleton MD Attending Provider Active Start: October 05, 2024 End: October 05, 2024 Dr. Kayleigh Singleton MD Referring Provider Active Start: October 05, 2024 End: October 05, 2024 Team Status: Inactive Member Role Status Dates Dr. Kayleigh Singleton MD Primary Care Provider Active Start: October 09, 2024 End: October 09, 2024 Dr. Kayleigh Singelton MD Referring Provider Active Start: October 09, 2024 End: October 09, 2024 CRISTINA Valle Attending Provider Active Sta rt: October 09, 2024 End: October 09, 2024 Shredder Tender Relationship Specialty Start Date End Date Kayleigh Singleton [address] [place] [address] PCP - General Internal Medicine 08/10/24 Shredder Tender Relationship Specialty Start Date End Date Kayleigh Singleton [address] [place] [address] PCP - General Internal Medicine 08/10/24 Shredder Tender Relationship Specialty Start Date End Date Kayleigh Singleton [address] [place] [address] PCP - General Internal Medicine 08/10/24 Shredder Tender Relationship Specialty Start Date End Date Kayleigh Singleton [address] [place] [address] PCP - General Internal Medicine 08/10/24 Shredder Tender Relationship Specialty Start Date End Date Areli Kayleigh Sampson [address] [place] [phone] PCP - General Internal Medicine 08/10/24 Team Status: Inactive Member Role Status Dates Dr. Kayleigh Singleton MD Primary Care Provider Active Start: January 08, 2025 End: January 08, 2025 Dr. Kayleigh Singleton MD Attending Provider Active Start: January 08, 2025 End: January 08, 2025 Dr. Kayleigh Singleton MD Referring Provider Active Start: January 08, 2025 End: January 08, 2025 Team Status: Active Member Role Status Dates Dr. Kayleigh Singleton MD Primary Care Provider Active Start: January 08, 2025 Dr. Kayleigh Singleton MD Attending Provider Active Start: January 08, 2025 Dr. Kayleigh Singleton MD Referring Provider Active Start: January 08, 2025 Team Status: Active Member Role Status Dates Dr. Kayleigh Singleton MD Primary Care Provider Active Team Status: Inactive Member Role Status Dates Dr. Kayleigh Singleton MD Primary Care Provider Active Start: January 22, 2025 End: January 22, 2025 Dr. Kayleigh Singleton MD Referring Provider Active Start: January 22, 2025 End: January 22, 2025 Dr. Elliot Trevino MD Attending Provider Active Start: January 22, 2025 End: January 22, 2025 Goals (unrecognized section and content) Goals may be documented in a n alternate sectionGoals may be documented in an alternate sectionGoals may be documented in an alternate sectionGoals may be documented in an alternate sectionGoals may be documented in an alternate sectionGoals may be documented in an alternate section No data available for this sectionGoals may be documented in an alternate sectionGoals may be documented in an alternate sectionGoals may be documented in an alternate sectionGoals may be documented in an alternate sectionGoals may be documented in an alternate section FOR RECORDS PERTAINING TO PATIENTS WHO ARE [...] BE BASED ON THE PRIMARY CLINICAL RECORDS. [facility] provides no warranty or guarantee of the accuracy or completeness of information in this document.
[2025-02-03 09:03] LABS: AST(SGOT) 56 U/L (<=37); Alanine Aminotransfer ALT/SGPT 100 U/L (<=46); Alkaline Phosphatase 91 U/L (40-129); Bilirubin, Direct 0.15 mg/dL (0.00-0.30); CPK Total, Creatine Kinase 279 U/L (24-195); Globulin 2.9 g/dL (2.2-4.2); Total Bilirubin 0.37 mg/dL (0.00-1.30)
== END | disposition home or self-care (01) ==
LOC: LAB 07:17
PROVIDERS: PCP Internal Medicine; Referring Provider Internal Medicine; Visit Provider Internal Medicine
DX: M79.10 Myalgia, unspecified site (principal); R79.89 Other specified abnormal findings of blood chemistry
CPT/HCPCS: 36415; 80076; 82550

== ENCOUNTER → 2025-03-01 | Outpatient (CLI) | payer BC, MEDICAID, SELFPAY ==
[2025-03-01 11:27] LABS: Vitamin D,25 Hydroxy 36.6 ng/mL (30-100)
== END | disposition home or self-care (01) ==
PROVIDERS: PCP Internal Medicine
DX: E55.9 Vitamin D deficiency, unspecified (principal)
CPT/HCPCS: 36415; 82306

== ENCOUNTER → 2025-04-20 | Outpatient (CLI) | payer BC, MEDICAID, SELFPAY ==
--- OUTSIDE RECORDS SUMMARY | 2025-04-20 07:26 | XMS RPT_ITS | CCD ---
Author Organization [facility] Providers Care Claim Processing Specialist Name Role Phone ISABELA, JONATHAN PA Unavailable [...] Provider Dr. Herman Plunkett Other Provider Isabela EVANS PA Jonathan Attending Provider CRISTINA Francis Attending Provider Dr. Kayleigh Singleton Primary Care Provider [phone] Dr. Kayleigh Singleton Referring Provider [phone] CRISTINA Gordon Attending Provider MD Seymour Erickson Attending Provider [phone] Kayleigh Singleton MD Primary Care Provider [...] Cano MD Primary Care Provider [phone] OLEMUKUL EFEWONGBE B Primary Care Unavailable LILLIAN BERMUDEZ Referring Unavailable ARNALDO SINGLETONONGBE Camilla Primary Care Unavailable ARNALDO SINGLETONONGBE Camilla Primary Care Unavailable Dr. Kayleigh Singleton Primary Care Provider [phone] Dr. Kayleigh Singleton Referring Provider [phone] Dr. Kayleigh Singleton Primary Care Provider 1(33 0) Dr. Kayleigh Singleton Referring Provider [phone] Dr. Galileo Samaniego Attending Provider [phone] MD Seymour Erickson Attending Provider [phone] MD Seymour Erickson Referring Provider [phone] MD Seymour Erickson Other Provider Dr. Kayleigh Singleton Primary Care Provider 1(33 0) Dr. Kayleigh Singleton Referring Provider [phone] MD Seymour Erickson Attending Provider [phone] Dr. Kayleigh Singleton Attending Provider [phone] Dr. Kayleigh Singleton Primary Care Provider 1(33 0) Dr. Kayleigh Singleton Referring Provider [phone] MD Seymour Erickson Attending Provider [phone] Dr. Kayleigh Singleton Primary Care Provider [phone] 0) Dr. Kayleigh Singleton Referring Provider [phone] MD Seymour Erickson Attending Provider [phone] Dr. Toby Clark Attending Provider [phone] KAYLEIGH SINGLETON MD Primary Care Physician [phone] VINAY MACIEL, REMI Aguiar Attending Unavail able KAYLEIGH SINGLETON MD Primary Care [facility] Kayleigh Singleton Primary Care Provider [phone]) Dr. Kayleigh Singleton Referring Provider [phone] MD Seymour Erickson Attending Provider [phone] Dr. Kayleigh Singleton Attending Provider [phone] MD Seymour Erickson Referring Provider [phone] MD Seymour Erickson Other Provider Yolanda FLOOR STEWARD/STEWARDESS, FLOOR STEWARD/STEWARDESS-C Pily E Attending Provider Yolanda FLOOR STEWARD/STEWARDESS, FLOOR STEWARD/STEWARDESS-C Pily E Other Provider [phone] Dr. Kayleigh Singleton Primary Care Provider [phone] 0) Dr. Kayleigh Singleton Attending Provider [phone] Dr. Kayleigh Singleton Referring Provider [phone] MD Seymour Erickson Attending Provider [phone] Dr. Toby Clark Attending Provider [phone] MD Seymour Erickson Referring Provider [phone] MD Seymour Erickson Other Provider Yolanda FLOOR STEWARD/STEWARDESS, FLOOR STEWARD/STEWARDESS-C Pily E Attending Provider [phone] Yolanda FLOOR STEWARD/STEWARDESS, FLOOR STEWARD/STEWARDESS-C Pily E Other Provider [phone] Yolanda FLOOR STEWARD/STEWARDESS, FLOOR STEWARD/STEWARDESS-C Pily E Referring Provider Dr. Kayleigh Singleton Primary Care Provider [phone] MD Seymour Erickson Attending Provider [phone] Areli, Dr. Kincaid Referring Provider [phone] Areli, Dr. Kincaid Attending Provider [phone] Dr. Kayleigh Singleton Primary Care Provider [phone] 0) Areli, Dr. Kincaid Referring Provider [phone] MD Seymour Erickosn Attending Provider [phone] MD Seymour Erickson Referring Provider [phone] DARRYN Beltran Attending Provider [phone] Kayleigh Singleton MD Primary Care Provider [phone] [phone]) Kayleigh Singleton Primary Care Provider Areli MACIEL, Dr. Kincaid Primary Care Provider Areli MACIEL, Dr. Kincaid Attending Provider [phone] Areli MACIEL, Dr. Kincaid Referring Provider [phone]) Jonathan Hernandez Attending Provider Areli MACIEL, Dr. Kincaid Primary Care Provider Aerli MACIEL, Dr. Kincaid Attending Provider [phone] Areli MACIEL, Dr. Kincaid Referring Provider [phone] Jonathan Hernandez Attending Provider Uriel MACIEL, Dr. Zarate Attending Provider Areli MACIEL, Dr. Kincaid Primary Care Provider Areli MACIEL, Dr. Kincaid Referring Provider [phone] Areli MACIEL, Dr. Kincaid Attending Provider [phone] Uriel MACIEL, Dr. Zarate Other Provider Uriel MACIEL, Dr. Zarate Referring Provider Areli MACIEL, Dr. Kincaid Primary Care Provider Areli MACIEL, Dr. Kincaid Referring Provider Iwona Ambrosio Attending Provider FARHAD ASH Attending Provider ZOLTAN ROCHA Attending Unavailable OLEGHE, EFEWONGBE Primary Care Unavailable ZOLTAN ROCHA Attending Unavailable OLEGHE, EFEWONGBE Referring Unavailable OLEGHE, EFEWONGBE Primary Care Unavailable ZOLTAN ROCHA Attending Unavailable OLEGHE, EFEWONGBE Primary Care Unavailable ZOLTAN ROCHA Attending Unavailable OLEGHE, EFEWONGBE Primary Care Unavailable VANDA SUBRAMANIAN Attending Unavailable Oleghe, Efewongbe Primary Care Unavailable Oleghe, Efewongbe Attending Unavailable Oleghe, Efewongbe Primary Care Unavailable Oleghe, Efewongbe Referring Unavailable Oleghe, Efewongbe Attending Unavailable Oleghe, Efewongbe Primary Care Unavailable Oleghe, Efewongbe Referring Unavailable Elliot Trevino Consulting Unavailable Oleghe, Efewongbe Primary Care Unavailable Elliot Trevino Referring Unavailable Elliot Trevino Attending Unavailable Iwona Worrell NP Attending Unavailable Oleghe, Efewongbe Primary Care Unavailable Oleghe, Efewongbe Referring Unavailable Oleghe, Efewongbe Attending Unavailable Oleghe, Efewongbe Primary Care Unavailable Oleghe, Efewongbe Referring Unavailable Elliot Trevino Attending Unavailable Oleghe, Efewongbe Primary Care Unavailable Oleghe, Efewongbe Referring Unavailable Oleghe, Efewongbe Attending Unavailable Oleghe, Efewongbe Primary Care Unavailable Oleghe, Efewongbe Referring Unavailable Oleghe, Efewongbe Primary Care Unavailable Oleghe, Efewongbe Referring Unavailable Oleghe, Efewongbe Attending Unavailable Oleghe, Efewongbe Attending Unavailable Oleghe, Efewongbe Primary Care Unavailable Oleghe, Efewongbe Referring Unavailable Oleghe, Efewongbe Primary Care Unavailable Oleghe, Efewongbe Referring Unavailable Jonathan Hernandez Attending Unavailable Oleghe, Efewongbe Primary Care Unavailable Oleghe, Efewongbe Referring Unavailable Elliot Trevino Attending Unavailable Areli Arnaldoeddabe Attending Unavailable Susie, Efewongbe Primary Care Unavailable Olealeishae, Efewongbe Referring Unavailable Susie, Efewongbe Primary Care Unavailable Elliot Trevino Referring Unavailable Elliot Trevino Attending Unavailable Allergies Allergy Classification Reported Allergen(s) Allergy Type Date of Onset Reaction(s) Facility (3 sources) colchicine; Translations: [COLCHICINE] Drug Allergy 6 [facility]OF [facility] Repository (20 sources) Colchicine; Translations: [colchicine] Drug Allergy 6 GI Upset [facility] Work Phone: (20 sources) Doxycycline; Translations: [doxycycline] Drug Allergy 2 Hives [facility] (13 sources) Colchicine Drug Allergy 6 Nausea And Vomiting, Other [facility] (1 source) Colchicine Drug Allergy 5 [facility] Repository (1 source) Doxycycline Drug Allergy 5 [facility] Repository Medications Current Medications Medication Drug Class(es) Dates Sig (Normalized) Sig (Original) acetaminophen 325 mg / HYDROcodone bitartrate 5 mg oral tablet (1 source) Opioid Agonist Start: 04-03-2023 End: 04-06-2023 take 1 tablet by mouth every six hours as needed for pain [employer] 325- 5 mg oral tablet Dose = 1 tab(s), Oral, q6h, PRN for pain, X 3 day(s), # 12 tab(s), 0 Refill(s), Strain of chest wall muscle, 127.3 Start Date: 04/03/23 Stop Date: 04/06/23 Status: Ordered 200 actuat albuterol 0.09 mg/actuat dry powder inhaler (20 sources) beta2-Adrenergic Agonist Start: 09-17-2023 Albuterol Sulfate 108 (90 Base) MCG/ACT aerosol powder Inhale. 09/17/2023 Active Start: 09-17-2023 Albuterol Sulf ate 90 mcg/actuation aerosol powdr breath activated Active 2 NMA INHALATION EVERY 4-6 HOURS as needed for shortness of breath or wheezing 1 0 September 17, 2023 1:00am Bronchitis Bronchitis, not specified as acute or chronic Start: 09-17-2023 Albuterol Sulf ate Active 2 INH INHALATION EVERY 4-6 HOURS September 17, 2023 12:00am Blood Glucose Monitoring Sup pl (ReliOn True Met Air Gluc Meter) w/Device kit (13 sources) Start: 12-03-2023 Blood Glucose Monitoring Suppl (ReliOn True Met Air Gluc Meter) w/Device kit USE DIRECTED TO CHECK BLOOD GLUCOSE DAILY. 12/03/2023 Active Blood-Glucose Meter (Freesty le Lite Meter) kit (9 sources) Start: 12-02-2023 Blood-Glucose Meter (Freestyle Lite Meter) kit Active 0 .MEDSUPPLY 1 0 December 02, 2023 12:00am Type 2 diabetes mellitus with hyperglycemia As directed, check blood glucose daily for type 2 DM Start: 12-02-2023 Blood-Glucose Meter (Freestyle Lite Meter) kit Active 0 .MEDSUPPLY 1 December 02, 2023 12:00am As directed, check blood glucose daily for type 2 DM Start: 12-02-2023 Blood-Glucose Meter (Freestyle Lite Meter) kit Active 0 .MEDSUPPLY 1 December 01, 2023 11:00pm As directed, check [...] CAPSULE BY MOUTH ONCE DAILY Start Date: 8/23/23 Status: Ordered ergocalciferol 1.25 mg oral capsule (6 sources) Provitamin D2 Compound Start: 11-28-19 End: 02-26-20 take 1 capsule by mouth every week, then take 1 capsule by mouth every week ergocalciferol (Vitamin D2) 1.25 MG (11059 UT) capsule Indications: Vitamin D deficiency Take 1 capsule (1.25 mg) by mouth 1 (one) time per week. Take 1 capsule by mouth weekly, for 12 weeks. 12 capsule 11/27/2024 02/25/2025 Active ibuprofen 200 mg oral capsule (16 sources) Nonsteroidal Anti-inflammatory Drug Ibuprofen capsule Take by mouth. Active Comment on above: Take by mouth. 600-8 00mg daily as needed for pain lisinopril 40 mg oral tablet (20 sources) Angiotensin Converting Enzyme Inhibitor Start: 03-19-20 End: 03-23-20 take 1 tablet by mouth once daily Lisinopril 40 mg tablet Active 40 mg PO daily 90 0 March 23, 2025 12:16pm Start: 03-19-2017 End: 03-19-2018 take 1 tablet by mouth once daily Lisinopril 20 mg tablet Discontinued 20 mg PO daily 90 October 11, 2017 2:17pm March 19, 2018 4:37pm Comment on above: Take 1 tablet by renae once daily. Magnesium (11 sources) Start: 11-23-2024 take 1 capsule by [...] oral tablet (20 sources) Biguanide Start: 10-05-2024 End: 03-30-2025 Metformin 500 mg tablet extended release 24 hr Active 1000 mg PO TWICE A DAY 360 90 March 30, 2025 8:19am Start: 12-02-2023 End: 10-05-2024 take 1 tablet [...] Discontinued 500 mg PO EVERY EVENING 60 2 March 19, 2018 12:00am April 01, 2019 4:09pm administer with evening meal 24 hr metoprolol succinate 25 mg extended release oral tablet (20 sources) beta-Adrenergic Nini Start: 08-20-2024 take 1 tablet by mouth once daily metoprolol succinate XL (Toprol-XL) 25 MG 24 hr tablet Take 25 mg by mouth Nightly. 08/20/2024 Active Start: 10-23-2023 End: 10-26-2024 take 1 tablet by mouth every twenty-four hours at bedtime Metoprolol Succinate 25 mg tablet extended release 24 hr Active 25 mg PO AT BEDTIME 90 3 October 26, 2024 8:02am naproxen 500 mg [...] sources) Nonergot Dopamine Agonist Start: 09-03-2024 End: 03-01-2025 pramipexole (Mirapex) 0.5 MG tablet Indications: RLS (restless legs syndrome) TAKE 1/2 TABLET IN THE MORNING, 1/2 TABLET IN THE AFTERNOON, AND 1 TABLET 2-3 HOURS BEFORE BEDTIME. 60 tablet 2 03/02/2025 Active Start: 08-07-2024 End: 10-05-2024 take 0.25 mg by mouth in the morning, then take 1 tablet by mouth at bedtime Pramipexole 0.5 mg tablet Active 1 mg PO AT BEDTIME 60 1 October 05, 2024 7:44pm Take 0.25mg am, 0.25pm and 0.5 mg 2-3 hrs before bedtime. Start: 07-06-2024 End: 07-31-2024 take 1 tablet by mouth at bedtime Pramipexole 1 mg tablet Discontinued 1 mg PO AT BEDTIME 90 1 July 06, 2024 10:17am July 31, 2024 1:13pm Start: 02-14-2022 End: 07-06-2024 take 1 tablet by mouth at bedtime Pramipexole 1.5 mg tablet Discontinued 1.5 mg PO AT BEDTIME 90 May 04, 2024 4:25pm July 06, 2024 [...] 0.75 mg PO AT BEDTIME 135 90 3 November 14, 2021 4:28pm February 06, 2022 11:53am Start: 10-14-2020 End: 02-06-2022 take 0.75 mg by mouth at bedtime Pramipexole Discontin ued 0.75 MG PO AT BEDTIME 135 90 November 14, 2021 3:28pm February 06, 2022 10:53am Start: 09-09-2019 End: 10-14-2020 take 1 tablet by mouth at bedtime Pramipexole 0.5 mg tablet Discontinued 0.5 mg PO AT BEDTIME 90 3 September 26, 2020 10:20am October 14, 2020 10:28am Start: 02-04-2018 End: 09-09-2019 take 1 tablet by mouth at bedtime Pramipexole 0.25 mg tablet Discontinued 0.25 mg PO AT BEDTIME 90 3 April 03, 2019 12:09pm September 09, 2019 9:41am Start: 10-01-2017 End: 02-04-2018 take 1 tablet by mouth at bedtime Pramipexole 0.125 mg tablet Discontinued 0.125 mg PO AT BEDTIME 30 January 09, 2018 8:44am February 04, 2018 [...] on above: Take 2 tablets by mo [facility] once daily for 5 days. pregabalin 25 mg oral capsule (20 sources) Start: 12-21-2024 End: 03-22-2025 pregabalin (Lyrica) 25 MG capsule Indications: RLS (restless legs syndrome) Take 1 capsule daily in the afternoon 30 capsule 2 03/26/2025 Active Start: 12-21-2024 End: 03-22-2025 pregabalin (Lyrica) 75 MG ca psule Indications: RLS (restless legs syndrome) Take 1 capsule 1-2 hours before bed. 30 capsule 2 03/26/2025 Active Tirzepatide (Mounjaro) 2.5 mg/0.5 mL pen injector (10 sources) Start: 04-15-2025 Tirzepatide (M ounjaro) 2.5 mg/0.5 mL pen injector Active 2.5 mg SC EVERY WEEK 2 April 15, 2025 12:00am for 4 weeks Start: 10-05-2024 End: 10-15-2024 Tirzepatide (Mounjaro) 2.5 m g/0.5 mL pen injector Discontinued 2.5 mg SC EVERY WEEK 2 October 05, 2024 1:00am October 15, 2024 5:31pm for 4 weeks Start: 10-05-2024 End: 10-15-2024 Tirzepatide (Mounjaro) 2.5 m g/0.5 mL pen injector Discontinued 2.5 mg SC EVERY WEEK 2 October 05, 2024 1:00am October 15, 2024 5:31pm for 4 weeks Start: 10-05-2024 End: 10-15-2024 Tirzepatide (Mounjaro) 2.5 m g/0.5 mL pen injector Discontinued 2.5 mg SC EVERY WEEK 2 October 05, 2024 12:00am October 15, 2024 4:31pm for 4 weeks vitamin b12 1 mg oral tablet (13 sources) Vitamin B12 take 1 tablet by [...] 6 HOURS as needed for pain 60 0 June 19, 2021 1:00am August 09, 2022 3:18pm acetaminophen 325 mg / oxyCODONE hydrochloride 5 mg oral tablet (20 sources) Opioid Agonist Start: 05-08-2023 End: 06-03-2023 Oxycodone-Acetamino phen (Percocet) 5-325 mg tablet Discontinued 2 {tbl} PO Q4H as needed for pain 30 5 0 May 10, 2023 May 14, 2023 12:00am May 15, 2023 12:04am Partial tear of common extensor tendon of right elbow Start: 08-22-2022 End: 08-31-2022 Oxycodone-Acetaminophen (Per cocet) 5-325 mg tablet Discontinued 1 {tbl} PO Q4H as needed for pain 20 7 0 August 22, 2022 August 31, 2022 10:15am Lateral epicondylitis of right elbow Lateral epicondylitis, right elbow allopurinol 300 mg oral tablet (20 sources) Xanthine Oxidase Inhibitor Start: 02-12-2024 End: 01-21-2025 take 1 tablet by mouth once daily Allopurinol 300 mg tablet Discontinued 300 mg PO DAILY 90 1 July 27, 2024 6:15pm January 21, 2025 1:22pm Start: 10-23-2023 End: 02-12-2024 Allopurinol 300 mg tablet Discontinued 100 mg PO DAILY October 23, 2023 1:04pm February 12, 2024 9:34am Start: 08-03-2021 End: 10-23-2023 take 1 tablet by mouth once daily Allopurinol 300 mg tablet Discontinued 300 mg PO DAILY 90 May 06, 2023 2:49pm October 23, 2023 1:05pm Start: 10-13-2020 End: 08-03-2021 take 3 tablets by mouth once daily Allopurinol 100 mg tablet Discontinued 300 mg PO DAILY 90 30 December 30, 2020 8:12am August 03, 2021 11:54am Start: 10-13-2020 End: 08-03-2021 take 300 mg by mouth once daily Allopurinol Discontinu ed 300 MG PO DAILY 90 December 30, 2020 7:12am August 03, 2021 [...] mg tablet Discontinued 100 mg PO DAILY 30 June 11, 2019 12:00am August 26, 2019 4:54pm Comment on above: Take 300 mg by mouth once daily. amoxicillin 875 mg / clavulanate 125 mg oral tablet (20 sources) Penicillin-class Antibacterial Start: 06-05-2019 End: 07-02-2019 Amoxicillin-Pot Clavulanate 875-125 mg tablet Discontinued 1 {tbl} PO Q12H 20 June 05, 2019 12:00am July 02, 2019 10:34am Start: 06-05-2019 End: 07-02-2019 take 1 tablet by mouth every twelve hours Amoxicillin-Pot Clavulanate Discontinued 1 TABLET PO Q12H June 04, 2019 11:00pm July 02, 2019 9:34am ascorbic acid 500 mg oral tablet (20 sources) Vitamin C Start: 08-15-2022 End: 06-03-2023 [...] release (DR/EC) Discontinued 81 mg PO daily 30 October 11, 2017 2:17pm June 03, 2023 2:35pm Comment on above: Take 1 tablet by renae th once daily. calcium carbonate 1500 mg oral [...] Start: 06-03-2019 End: 06-23-2020 CBD oil Discontinued SL 0 June 03, 2019 12:00am June 23, 2020 5:49pm Start: 06-03-2019 End: 06-23-2020 CBD oil Discontinued SL Octo 2018 11:00pm June 23, 2020 4:49pm Start: 06-03-2019 End: 06-23-2020 CBD oil Discontinued SL Octo lacho 2018 12:00am June 23, 2020 5:49pm cephalexin 500 mg oral capsule (14 sources) Cephalosporin Antibacterial Start: 05-28-2023 End: 06-04-2023 take 1 capsule by mouth every six hours Cephalexin 500 mg capsule Discontinued 500 mg PO EVERY 6 HOURS 28 7 0 May 28, 2023 12:00am June 03, 2023 12:00am June 04, 2023 12:05am infection clarithromycin 250 mg oral tablet (20 sources) Macrolide Antimicrobial Start: 10-01-2017 End: 12-12-2017 take 1 tablet by mouth once Clarithromycin 250 mg tablet Discontinued 250 mg PO ONCE October 01, 2017 1:00am December 12, 2017 3:50pm clindamycin 300 mg oral capsule (14 sources) Lincosamide Antibacterial Start: 05-30-2023 End: 06-09-2023 take 1 capsule by mouth every six hours Clindamycin Hcl 300 mg capsule Discontinued 300 mg PO EVERY 6 HOURS 40 10 0 May 30, 2023 12:00am June 08, 2023 12:00am June 09, 2023 12:04am Partial tear of common extensor tendon of right elbow infection codeine phosphate 2 mg/ml / guaiFENesin 20 mg/ml oral solution (20 sources) Opioid Agonist Start: 09-25-2023 End: 10-05-2023 take 1 mL by mouth every four to six hours as needed for cough Codeine-Guaifenesin 10-100 mg/5 mL liquid Discontinued 10 mL PO EVERY 4-6 HOURS as needed for cough 400 10 0 September 25, 2023 4:28pm October 04, 2023 1:00am October 05, 2023 1:16am Bronchitis Bronchitis, not specified as acute or chronic Start: 09-25-2023 take 1 mL by mouth e very four to six hours Codeine-Guaifenesin Active 10 ML PO EVERY 4-6 HOURS 400 10 September 25, 2023 3:28pm Start: 09-17-2023 End: 09-25-2023 take 1 mL by mouth every four to six hours as needed for cough Codeine-Guaifenesin 10-100 mg/5 mL liquid Discontinued 10 mL PO EVERY 4-6 HOURS as needed for cough 400 10 0 September 17, 2023 1:00am September 26, 2023 1:00am September 25, 2023 4:28pm Bronchitis Bronchitis, not specified as acute or chronic Start: 09-17-2023 End: 09-25-2023 take 1 mL by mouth every four to six hours as needed for cough Codeine-Guaifenesin 10-100 mg/5 mL liquid Discontinued 10 mL PO EVERY 4-6 HOURS as needed for cough 400 10 September 17 2024 1:00am September 26, 2023 1:00am September 25, [...] 3:28pm cyclobenzaprine hydrochloride 10 mg oral tablet (13 sources) Muscle Relaxant Start: 06-19-2023 End: 08-13-2023 [...] % gel Discontinued 4 g TOPICAL .COMPLEX 100 2 June 20, 2021 1:00am December 20, 2022 4:00pm apply 4 grams topically to the knee 3-4 times PRN Start: 06-20-2021 End: 12-20-2022 Diclofenac Sodium (Voltaren Arthritis Pain) 1 % gel Discontinued 4 GM TOPICAL .COMPLEX 100 June 20, 2021 12:00am December 20, 2022 [...] 24 hr Discontinued 300 mg PO daily 90 3 February 13, 2022 4:48pm March 20, 2022 [...] 3:21pm Start: 03-26-2017 take 1 capsule by [facility] once daily diltiazem CD (CARDIZEM CD, CARTIA XT) 240 mg 24 hr capsule Take 1 capsule by mouth once daily. 90 capsule 1 03/26/2017 Active Comment on above: Take 1 capsule by [facility] once daily. doxycycline hyclate 50 mg oral capsule (20 sources) Tetracycline-clas s Drug Start: 06-08-2022 End: [...] Comment on above: Take 1 tablet by [facility] twice daily for 7 days. famotidine 20 mg oral tablet (20 sources) Histamine-2 Receptor Antagonist Start: 0 End: take 1 tablet by mouth once daily Famotidine 20 mg tablet Discontinued 20 mg PO DAILY March 16, 2020 12:00am September 08, 2020 3:48pm gabapentin 300 mg oral capsule (20 sources) Anti-epileptic Agent Start: End: take 2 capsules by mouth at bedtime Gabapentin 300 mg capsule Discontinued 600 mg PO AT BEDTIME 180 90 August 10, 2024 10:17am February 16, 2025 9:14am Start: 08-07-2024 End: 08-10-2024 take 5 tablets by mouth once daily at dinner Gabapentin Enacarbil 600 mg tablet extended release Discontinued 600 mg PO EVERY EVENING as needed for restless leg(s) 30 August 07, 2024 1:00am August 10, 2024 10:17am administer daily at approximately 5 PM with food/evening meal Start: 07-06-2024 End: 08-07-2024 take 2 capsules by mouth at bedtime Gabapentin 300 mg capsule Discontinued 600 mg PO AT BEDTIME 180 90 July 27, 2024 6:15pm August 07, 2024 5:00pm Start: 04-03-2023 take 1 capsule by mo ut at bedtime gabapentin 300 mg oral capsule TAKE 1 CAPSULE BY MOUTH AT BEDTIME Start Date: 04/03/23 Status: Ordered Start: 03-14-2023 End: 07-06-2024 take 1 capsule by mouth at bedtime Gabapentin 400 mg capsule Discontinued 400 mg PO AT BEDTIME 90 3 March 02, 2024 8:10am July 06, 2024 10:18am Start: 10-13-2020 End: 03-14-2023 take 1 capsule by mouth at bedtime Gabapentin 100 mg capsule Discontinued 100 mg PO AT BEDTIME 90 3 February 19, 2023 12:56pm March 14, 2023 4:45pm Start: 03-16-2020 End: 03-14-2023 take 1 capsule by mouth at bedtime Gabapentin 300 mg capsule Discontinued 300 mg PO AT BEDTIME 90 0 June 25, 2022 11:53am March 14, 2023 4:46pm Start: 04-01-2019 End: 03-16-2020 take 2 capsules by mouth at bedtime Gabapentin 100 mg capsule Discontinued 200 mg PO AT BEDTIME 180 2 January 02, 2020 9:34am March 16, 2020 6:23pm Start: 04-01-2019 End: 03-16-2020 take 200 mg by mouth at bedtime Gabapentin Discontinue d 200 MG PO AT BEDTIME 180 January 02, 2020 8:34am March 16, 2020 5:23pm Start: 03-19-2018 End: 04-01-2019 take 1 capsule by mouth at bedtime Gabapentin 100 mg capsule Discontinued 100 mg PO AT BEDTIME 60 2 February 27, 2019 4:58pm April 01, 2019 4:55pm take 1 tablet by renae th once daily GABAPENTIN ORAL Take 1 tablet by mouth once daily. 400mg daily Active take 1 tablet by renae th once daily GABAPENTIN ORAL Take 1 tablet by mouth once daily. 400mg daily 0 Active Comment on above: Take 1 tablet by renae th once daily. 400mg daily hydroCHLOROthiazide 25 mg oral tablet (20 sources) Thiazide Diuretic Start: 2020 End: 2024 take 1 tablet by mouth once daily in the evening Hydrochlorothiazide 25 mg tablet Discontinued 25 mg PO EVERY EVENING 90 1 April 17, 2024 3:55pm October 16, 2024 2:08pm Start: 12-10-2019 End: 05-15-2021 take 1 tablet by mouth once daily in the morning Hydrochlorothiazide 12.5 mg tablet Discontinued 12.5 mg PO EVERY MORNING 90 0 March 08, 2021 8:24am May 15, 2021 4:23pm Start: 12-12-2017 End: 03-19-2018 take 1 tablet by mouth once daily Hydrochlorothiazide 25 mg tablet Discontinued 25 mg PO daily 90 3 December 12, 2017 12:00am March 19, 2018 [...] A DAY as needed for Gout 90 2 September 08, 2020 3:46pm October 20, 2020 11:35am Use consistently for 5 - 7 days and then as needed for Gout. administer with food or milk Start: 09-08-2020 End: 09-08-2020 take 1 capsule by mouth twice daily at mealtime Indomethacin 50 mg capsule Discontinued 50 mg PO TWICE A DAY 60 2 September 08, 2020 1:00am September 08, 2020 3:47pm administer with food or milk L. Acidophilus/Bifid. Animalis (Probiotic) 5 billion cell Capsule, Sprinkle (20 sources) Start: 08-15-2022 End: 06-03-2023 take 5 [...] 3 ml liraglutide 6 mg/ml pen injector (9 sources) GLP-1 Receptor Agonist Start: 10-15-2024 End: 10-23-2024 inject 0.6 mg by subcutaneous injection once daily, then inject 1.8 mg by subcutaneous injection once daily Liraglutide (Victoza 3-Enrike) 0.6 mg/0.1 mL (18 mg/3 mL) pen injector Discontinued 0 SC .COMPLEX 9 October 15, 2024 1:00am October 23, 2024 12:06pm inject 0.6mg subcutaneously once daily x 7 days; then 1.2mg daily, not to exceed 1.8mg/day subcut Liraglutide (Victoza 3-Enrike) 0.6 mg/0.1 mL (18 mg/3 mL) pen injector (8 sources) Start: 10-23-2024 End: 01-08-2025 inject 0.6 mg by subcutaneous injection once daily, then inject 1.8 mg by subcutaneous injection once daily Liraglutide (Victoza 3-Enrike) 0.6 mg/0.1 mL (18 mg/3 mL) pen injector Discontinued 0 SC .COMPLEX 9 October 23, 2024 12:06pm January 08, 2025 2:00pm inject 0.6mg subcutaneously once daily x 7 days; then 1.2mg daily, not to exceed 1.8mg/day subcut Start: 10-23-2024 End: 01-08-2025 inject 0.6 mg by subcutaneous injection once daily, then inject 1.8 mg by subcutaneous injection once daily Liraglutide (Victoza 3-Enrike) 0.6 mg/0.1 mL (18 mg/3 mL) pen injector Discontinued 0 SC .COMPLEX October 23, 2024 12:06pm January 08, 2025 2:00pm inject 0.6mg subcutaneously once daily x 7 days; then 1.2mg daily, not to exceed 1.8mg/day subcut magnesium hydroxide 80 mg/ml oral suspension (2 sources) End: 11-23-2024 magnesium hydroxide (Milk of Magnesia) 400 MG/5ML suspension Take by mouth Nightly. 11/23/2024 Discontinued (Med list cleanup) magnesium oxide 250 mg oral tablet (20 sources) Start: 10-01-2017 End: 03-16-2020 take 1 tablet by mouth once Magnesium Oxide 250 mg tablet Discontinued 250 mg PO ONCE October 01, 2017 1:00am March 16, 2020 5:57pm meloxicam 15 mg oral tablet (20 sources) Nonsteroidal Anti-inflammatory Drug Start: 05-22-2021 End: 06-19-2021 take 1 tablet by mouth once daily Meloxicam (Mobic) 15 mg tablet Discontinued 15 mg PO DAILY 30 0 May 22, 2021 12:00am June 19, 2021 [...] mg tablet Discontinued 15 mg PO DAILY 90 2 June 03, 2019 2:52pm August 26, 2019 4:55pm Comment on above: Take 15 mg by mouth once daily. methylPREDNISolone 4 mg oral tablet (20 sources) Corticosteroid Start: 2023 End: 2023 take 1 tablet by mouth once Methylprednisolone (Medrol (Enrike)) 4 mg tablets,dose pack Discontinued 0 PO per package directions 21 September 17, 2023 1:00am September 25, 2023 [...] take 1 tablet by mouth once daily multivitamin,kg-itay-dbqfsskl Discontinu ed 1 TABLET PO DAILY March 16, 2020 12:00am June 03, 2023 2:36pm Start: 03-16-2020 take 1 tablet by renae th once daily multivitamin,kl-yjax-ccogrrxu Active 1 T ABLET PO DAILY March 15, 2020 11:00pm Start: 03-16-2020 take 1 tablet by renae th once daily multivitamin,xb-mfxx-sooncbua Active 1 T ABLET PO DAILY March 16, 2020 12:00am Multivitamin,Fu-Uzts-Hiuiibo s (Complete Multivitamin) tablet (9 sources) Start: 03-16-2020 End: 06-03-2023 Multivitamin,Qo-Gqgc-Vscwmvx s (Complete Multivitamin) tablet Discontinued 1 {tbl} PO DAILY March 16, 2020 12:00am June 03, 2023 2:36pm Start: 03-16-2020 End: 06-03-2023 Multivitamin,Br-Ghcd-Etqttgr s (Complete Multivitamin) tablet Discontinued 1 {tbl} PO DAILY March 15, 2020 11:00pm June 03, 2023 1:36pm omega-3 acid ethyl esters (care home) 1000 mg oral capsule (19 sources) Start: 12-20-2022 End: 06-03-2023 Charlotte-3 Acid Ethyl Esters 1 gram capsule Discontinued 1 NMA PO DAILY December 20, 2022 12:00am June 03, 2023 2:36pm Start: 12-20-2022 End: 06-03-2023 take 1 capsule by mouth once daily Charlotte-3 Acid Ethyl Esters Discontinued 1 CAP PO DAILY December 19, 2022 11:00pm June 03, 2023 1:36pm omeprazole 40 mg delayed release oral capsule (20 sources) Proton Pump Inhibitor Start: 09-08-2020 End: 11-30-2024 take 1 capsule by mouth once daily 30 minutes before breakfast Omeprazole 40 mg capsule,delayed release(DR/EC) Discontinued 40 mg PO DAILY 90 1 June 08, 2024 12:19pm November 30, 2024 9:32am Take 30 minutes before breakfast Comment on above: Take 40 mg by mouth once daily. ondansetron 4 mg oral tablet (14 sources) Serotonin-3 Receptor Antagonist Start: 05-10-2023 End: 06-03-2023 take 1 tablet by mouth once daily as needed for nausea and vomiting Ondansetron Hcl 4 mg tablet Discontinued 4 mg PO DAILY as needed for nausea and vomiting 14 5 May 10, 2023 12:00am June 03, 2023 2:36pm Partial tear of common extensor tendon of right elbow potassium gluconate 2.13 meq oral tablet (20 [...] d aily. rOPINIRole 0.5 mg oral tablet (9 sources) Nonergot Dopamine Agonist Start: 07-31-20 End: 08-07-20 take 1 tablet by mouth once daily Ropinirole 0.5 mg tablet Discontinued 0.5 mg PO daily 30 0 July 31, 2024 1:00am August 07, 2024 7:23pm rosuvastatin calcium 10 mg oral tablet (5 sources) HMG-CoA Reductase Inhibitor Start: 01-23-20 End: 02-04-20 take 1 tablet by mouth once daily Rosuvastatin 10 mg tablet Discontinued 10 mg PO DAILY 30 30 January 22, 2025 12:00am February 03, 2025 3:00pm triamcinolone acetonide 1 mg/ml topical cream (20 sources) Corticosteroid Start: 07-10-20 End: 08-09-20 Triamcinolone Acetonide 0.1 % cream Discontinued 1 NMA TOPICAL THREE TIMES A DAY as needed for rash, itching 80 1 July 10, 2022 1:00am August 09, 2022 3:18pm vit C 30 mg-s.oliveira 250 mg-celery seed 75 mg-grape seed extrt capsule (16 sources) Start: 10-01-19 End: 03-19-20 vit C 30 mg-s.oliveira 250 mg-celery seed 75 mg-grape seed extrt capsule Discontinued CAP PO October 01, 2017 12:00am March 19, 2018 3:09pm Start: 10-01-2017 End: 03-19-2018 vit C 30 mg-s.oliveira 250 mg- celery seed 75 mg-grape seed extrt capsule Discontinued CAP PO October 01, 2017 1:00am March 19, 2018 4:09pm Vit C-S.Nwkrim-Twhkkw-Xxkxh Sd 28-062-35-75-20 mg capsule (9 sources) Start: 10-01-2017 End: 03-19-2018 Vit C-S.Xhewpq-Cywwsx-Qlbeh Sd 41-194-17-75-20 mg capsule Discontinued NMA PO 0 October 01, 2017 1:00am March 19, 2018 4:09pm Start: 10-01-2017 End: 03-19-2018 Vit C-S.Werkyx-Drxeqo-Rkbeo Sd 37-076-65-75-20 mg capsule Discontinued NMA PO October 01, 2017 1:00am March 19, 2018 4:09pm Start: 10-01-2017 End: 03-19-2018 Vit C-S.Qmzsla-Ibsjer-Xpsiq Sd 55-096-38-75-20 mg capsule Discontinued NMA PO October 01, 2017 12:00am March 19, 2018 3:09pm Problems Active Problems Problem Classification Problem Date Documented Date Episodic/Chronic Cardiac dysrhythmias (20 sources) Cardiac arrhythmia; Translations: [Cardiac arrhythmia, unspecified] 09-20-2016 Chronic Cardiac dysrhythmias (20 sources) Tachycardia; Translations: [Tachycardia, unspecified] Episodic Chronic obstructive pulmonary disease and bronchiectasis (11 sources) Bronchitis; Translations: [Bronchitis, not specified as acute or chronic] 09-17-2023 Episodic Complications of surgical procedures or medical care (20 sources) Seroma following procedure; Translations: [Seroma after procedure] 11-23-2022 Episodic Diabetes mellitus without complication (20 sources) Diabetes mellitus; Translations: [Type 2 diabetes mellitus without complications] Onset: 04-15-2025 07-11-2021 Chronic Diabetes mellitus without complication (20 [...] arthropathies (20 sources) Gout; Translations: [Gout, unspecified] Onset: 04-15-2025 10-21-2020 Chronic Hepatitis (11 sources) Nonalcoholic steatohepatitis; Translations: [Nonalcoholic steatohepatitis (FENG)] Onset: 04-19-2025 01-22-2025 Chronic Joint disorders and dislocations; trauma-related (20 sources) Derangement of right knee; Translations: [Unspecified internal derangement of right knee] 05-24-2021 Chronic Noninfectious gastroenteritis (2 sources) Noninfective gastroenteritis and colitis, unspecified; Translations: [Noninfective gastroenteritis and colitis, unspecified] Onset: 02-18-2025 Episodic Nutritional deficiencies (6 sources) Vitamin D deficiency; Translations: [Vitamin D deficiency, unspecified] Onset: 02-18-2025 01-05-2025 Chronic Osteoarthritis (20 sources) Osteoarthrosis of the carpometacarpal joint of the thumb; Translations: [Unilateral primary osteoarthritis of first carpometacarpal joint, right hand] 03-22-2023 Chronic Other circulatory disease (10 sources) Pulmonary congestion ; Translations: [Other specified symptoms and signs involving the circulatory and respiratory systems] 09-25-2023 Episodic Other connective tissue disease (20 sources) Lateral epicondylitis of right humerus; Translations: [Lateral epicondylitis, right elbow] 03-31-2022 Episodic Other connective tissue disease (20 sources) Lateral epicondylitis, right elbow; Translations: [Lateral epicondylitis] Episodic Other connective tissue disease (15 sources) Pain in thumb ; Translations: [Pain in right finger(s)] 03-22-2023 Episodic Other connective tissue disease (7 sources) Pain in right finger(s); Translations: [Pain in limb] 03-22-2023 Episodic Other connective tissue disease (14 sources) Tenosynovitis of right radial styloid; Translations: [Radial styloid tenosynovitis [de Quervain]] 03-26-2023 Episodic Other connective tissue disease (3 sources) Radial styloid tenosynovitis [de Quervain]; Translations: [Radial styloid tenosynovitis] 03-26-2023 Episodic Other connective tissue disease (14 sources) Cramp in lower limb; Translations: [Cramp and spasm] 01-08-2025 Episodic Other connective tissue disease (5 sources) Muscle pain; Translations: [Myalgia, unspecified site] 02-02-2025 Episodic Other connective tissue disease (1 source) Myalgia, unspecified site; Translations: [Myalgia, unspecified site] Onset: 02-08-2025 Episodic Other connective tissue disease (1 source) [...] injuries and conditions due to external causes (20 sources) Seroma due to trauma; Translations: [Traumatic secondary and recurrent hemorrhage and seroma, initial encounter] 11-23-2022 Episodic Other injuries and conditions due to external causes (5 sources) Traumatic secondary and recurrent hemorrhage and seroma, initial encounter; Translations: [Post-traumatic seroma] 12-07-2022 Episodic Other liver diseases (20 sources) Fatty (change of) liver, not elsewhere classified; Translations: [Nonalcoholic fatty liver disease] 01-31-2023 Chronic Other liver diseases (10 sources) Drug-induced disorder of liver; Translations: [Toxic liver disease, unspecified] 01-22-2025 Chronic Other liver diseases (1 source) Toxic liver disease, unspecified; Translations: [Toxic liver disease, unspecified] Onset: 04-19-2025 Chronic Other liver diseases (19 sources) Elevated liver enzymes level; Translations: [Abnormal levels of other serum enzymes] 12-23-2022 Episodic Other liver diseases (1 source) Abnormal levels of other serum enzymes; Translations: [Abnormal levels of other serum enzymes] Onset: 02-03-2025 Episodic Other lower respiratory disease (20 sources) Dyspnea on exertion; Translations: [Other forms of dyspnea] 08-26-2019 Episodic Other lower respiratory disease (12 sources) Cough; Translations: [Acute cough] Episodic Other lower respiratory disease (12 sources) Rib pain; Translations: [Pleurodynia] 06-19-2023 Episodic [...] Chronic Other nutritional; endocrine; and metabolic disorders (9 sources) Body mass index 30+ - obesity; Translations: [Obesity, unspecified] 12-23-2023 Chronic Other screening for suspected conditions (not mental disorders or infectious disease) (20 sources) Patient encounter status; Translations: [Encounter for screening for malignant neoplasm of colon] Onset: 04-19-2025 Episodic Other upper respiratory infections (11 sources) Sinusitis; Translations: [Chronic sinusitis, unspecified] 09-17-2023 Chronic Other upper respiratory infections (2 sources) Sore throat symptom; Translations: [Acute pharyngitis, unspecified] Episodic Residual codes; unclassified (20 sources) Sleep apnea; Translations: [Sleep apnea, unspecified] 12-12-2017 Chronic Residual codes; unclassified (7 sources) Obstructive sleep apnea syndrome; Translations: [Obstructive sleep apnea (adult) (pediatric)] Onset: 04-12-2017 04-12-2017 Chronic Residual codes; unclassified (19 sources) Hypersomnia; Translations: [Hypersomnia, unspecified] 12-20-2022 Chronic [...] Test Name Value Interpretation Reference Range Facility Internal Medicine Office Vis gilson 04-15-2025 Internal Medicine Office Visit [facility] [address] [place] [address] [place], [place] [address] OFFICE VISIT Date of Service: 04/15/25 MR#: [id number] Acct: [id number] Name: GIOVANNI JOHNSON Rep #: [id number] : 1975 Provider: Dr. Kayleigh reagan MD Age/Sex: 50/M Location: [facility] Status: Signed Intake Vital Signs 01/08/25 13:37 01/22/25 14:01 02/16/25 09:13 04/15/25 13:41 Height 6 ft 3 in 6 ft 3 in 6 ft 3 in 6 ft 3 in Weight: 300 lb BMI 37.5 BP 122/86 H Blood Pressure Location Lt brachial Position Sitting Respiration 16 Pulse 97 Pulse Source Monitor Temp 98.1 F Temp Source Temporal Pulse Oximetry (%) 96 Oxygen Delivery Method room air Intake Visit Reasons: 3 M FU Chief Complaint: 3 M FU Is patient in pain?: Yes (RIGHT RIB) Pain scale (1-10): 4 Allergies doxycycline Allergy (Unknown, Verified 04/15/25 13:40) Hives colchicine Adverse Reaction (Severe, Verified 04/15/25 13:40) Emesis Medications ???Medication ???Instructions ???Recorded ???Confirmed ???Type albuterol sulfate 90 mcg/actuation 2 inh inhalation Q4-6H PRN 09/1704/15/25 Rx breath activated powder inhaler shortness of breath or wheezing #1 ea blood sugar diagnostic (FreeStyle #100 ea 12/02/23 04/15/25 Rx Lite Strips) blood-glucose meter (FreeStyle #1 ea 12/02/23 04/15/25 Rx Lite Meter kit) lancets 28 gauge (FreeStyle #200 ea 12/02/23 04/15/25 Rx Lancets) diltiazem HCl 300 mg capsule,24 300 mg PO QPM #90 caps 04/14/24 Rx hr,extended release pramipexole 0.5 mg tablet 1 mg (2 x 0.5 mg) PO QHS #60 tabs 10/05/24 04/15/25 Rx hydrochlorothiazide 25 mg tablet 25 mg PO QPM #90 tabs 10/16/2412/04 Rx metoprolol succinate 25 mg 25 mg PO QHS #90 tabs 10/26/2412/04 Rx tablet,extended release 24 hr omeprazole 40 mg capsule,delayed 40 mg PO DAILY #90 caps 11/30/24 0 04/15/25 Rx release allopurinol 300 mg tablet 300 mg PO DAILY #90 tabs 01/21/25 04/15/25 Rx pregabalin 25 mg capsule 25 mg PO QDAY 02/16/25 04/15/25 Hi story pregabalin 75 mg capsule 75 mg PO QHS 02/16/25 04/15/25 His tory lisinopril 40 mg tablet 40 mg PO QDAY #90 tabs 03/23/25 Rx metformin 500 mg tablet,extended 1,000 mg (2 x 500 mg) PO BID 3 04/15/25 Rx release 24 hr months #360 tabs tirzepatide 2.5 mg/0.5 mL 2.5 mg (0.5 mL) subcut QWEEK #2 mL 04/15/25 04/15/25 Rx subcutaneous pen injector (Lorenzo) [facility] Medical History Leg cramps Screening, iron deficiency [...] M FU Details: GIOVANNI JOHNSON, is a 50-year-old male presenting for follow-up of his chronic medical conditions. He reports ongoing issues with restless leg syndrome, describing it as rough, with difficulties finding effective medication regimens. He mentions a history of changes initiated by Dr. Trevino, due to concern for gabapentin playing a role in his elevated liver enzymes. He states that his sleep medicine specialist who also manages his restless leg has had some difficulty with this. Attempts have been made at tapering of pramipexole with worsening of his restless leg. The patient's sleep has been characterized by improved patterns over the last week, averaging six h (more content not included)... [facility] 04-05-2025 36 [facility]. Uploaded to Media. [place] 2883904-02-2025 36 Nidra device denied by insurance. Please review the Nidra appeal letters, print and sign them. [address] 03-26-2025 [address] Trevino. Called back and left another VM for him to discuss patient's lyrica. [address] 03-23-2025 36 Duplicate request [facility] 36 Last follow up: 02/18/2025 Next appointment: 05/06/2025 Allergies[1] Requested Prescriptions Pending Prescriptions Disp Refills pregabalin (Lyrica) 25 MG capsule 30 capsule 2 Sig: Take 1 capsule daily in the afternoon pregabalin (Lyrica) 75 MG capsule 30 capsule 2 Sig: Take 1 capsule 1-2 hours before bed. Recommendations: - Reviewed compliance data: good overall usage. Continue at current pressure setting. Pt is going back to nasal pillows mask. Have previously sent for chinstrap to add to it--pt to call DME directly to request since he hasn't received. - Will recheck Vit D. - Med mgmt: continue lyrica 25 mg AM and 75 mg HS. Continue mirapex 0.5 mg BID. Will try to touch base with Dr. Trevino to further check in on how lyrica may be affecting his liver? Ideally would have tried to titrate up further. - Sending Rx for Nidra for RLS. - will obtain nocturnal pulse oximetry on settings once he has chinstrap and using with nasal pillows mask. - f/u 2 months. [facility] [place] [1] Allergies Allergen Reactions Colchicine Nausea And Vomiting and Other Doxycycline Hives [facility] 3603-03-2025 36 Called and LVM with Dr. Trevino's office to coordinate care for patient. [facility] 3603-01-2025 36 Last follow up: 02/18/25 Next appointment: 05/06/2025 Allergies[1] Requested Prescriptions Pending Prescriptions Disp Refills pramipexole (Mirapex) 0.5 MG tablet 60 tablet 2 Sig: TAKE 1/2 TABLET IN THE MORNING, 1/2 TABLET IN THE AFTERNOON, AND 1 TABLET 2-3 HOURS BEFORE BEDTIME. [1] Allergies Allergen Reactions Colchicine Nausea And Vomiting and Other Doxycycline Hives [facility] Vitamin D,25 Hydroxyon 03-01 Vitamin D 25-OH 36.6 ng/mL Normal 30-100 [facility] Comment on above: Result Comment: Constanza min D Status Deficiency: <20 ng/mL (50nmol/L) Insufficiency: 20-30 ng/mL (50-75 nmol/L) Sufficiency: 30-100 ng/mL (75-250 nmol/L) Toxicity: >100 ng/mL (>250 nmol/L) Performed By: #### L [id number] #### [facility] [address] [place], [address] 36on 02-25-2025 36 Faxed prescription form, patient info form, insurance card, and last 4 office visit notes to [phone]. (Nidra TOMAC System for RLS) [facility] 36on 02-23-2025 36 Prescription form to be placed in provider's mailbox and patient will need to sign. [facility] 36 MD Hannah Mcgill RN Can we prepare packet for Nidra for RLS for him? Thank you! [facility] 37on 02-18-2025 37 - Please get your Vitamin D level re-checked at your convenience. You don't have to be fasting for this. - keep your lyrica and pramipexole at the current doses until I have a chance to further discuss with Dr. Trevino. - In the meantime, I'm going to try to order you the Nidra device for restless legs. - Please call [facility] to request the chinstrap. - We'll follow-up in the next 2 months or so. [facility] Office Visiton 02-18-2025 Follow-up visit [id number] Claudio Johnson 1975 M Date Provider Department Center 02/18/2025 [id number] None No family history on file Level of Service:13649 [place] OFFICE/OUTPATIENT ESTABLISHED MOD MDM 30 MIN Reason for Visit and Comments: Follow-up [338538] - RLS [facility] Progress Noteon 02-18-2025 Progress Note [facility] UP OFFICE VISIT-SLEEP Date of last visit: 01/05/25 Plan at that time: - Reviewed compliance [...] nasal pillows mask. - f/u 2 months. Interval History: Thinks now lyrica was suggested to be decreased due to worsening kidney function, not for liver problems. Worsening RLS with statin, so had to d/c. Getting back to baseline RLS levels at this time. Difficult to remember daytime pramipexole and lyrica. 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 Never got chin strap. No snoring per , but she does seem to hear/see some mouth breathing. Denies any side effects from lyrica at this time, but doesn't feel like it's doing anything. Taking Lyrica 25 mg PM and 75 mg HS. Also still taking pramipexole 0.5 mg PM (2-4 pm), and 0.5 mg HS Therapy: Bipap 17/12 cmh2O DME: [employer] Mask: nasal pillows Sleep-Wake Schedule Bedtime: 11 P.M. Final wake time: 6 A.M. he does wake up refreshed. Sleep Latency: instantly Awakenings after sleep onset: 1x, because of unknown reasons, and sometimes has difficulty falling asleep Naps: none Estimated total sleep time: 6 hours Sleep Metrics: Leopold Sleepiness Scale: 13 (11 last visit) Past Treatments: Ropinirole Pramipexole Gabapentin Lyrica Sleep Studies: 2014 study - doesn't know [...] 81 mg, Daily Blood Glucose Monitoring Suppl ([employer] True Met Air Gluc Meter) w/Device kit [...] unchanged from last visit) Physical Exam Vitals: 02/18/25 1429 BP: 99/62 BP Location: Left arm Patient Position: Sitting BP Cuff Size: Large adult Pulse: 80 Resp: 16 SpO2: 97% Weight: 291 lb 3.2 oz (132 kg) Height: 6' 3 (1.905 m) Body mass index is 36.4 kg/m?. General appearance: Well appearing. No acute distress. AAOX3 Head: Normocephalic, without obvious abnormality, atraumatic Eyes: Normal sclera and conjunctiva Skin: Skin color normal. No rashes or lesions Psych: Euthymic Mood, restricted affect Labs/additional studies: Impression: Diagnosis Plan 1. RLS (restless legs syndrome) 2. PO (obstructive sleep apnea) 3. Vitamin D deficiency Vitamin D 25 hydroxy Vitamin D 25 hydroxy 49 y/o M with BMI > 30, HTN, DM. Presented with chronic severe RLS, as well as very severe PO. Had period during transition from pramipexole to requip had e (more content not included)... [facility] Cardiology Visit Reporton Cardiology Visit Report [facility] [place] [address] [place], [place] [address] OFFICE VISIT Date of Service: 02/16/25 MR#: [id number] Acct: [id number] Name: GIOVANNI JOHNSON Rep #: [id number] : 1975 Provider: DARRYN holland Age/Sex: 49/M Location: [facility] Status: Signed HPI HPI History of Present Illness Details: This is a 49-year-old white male who presents today for outpatient cardiovascular follow up visit. He was previously seen for concerns of tachycardia. As you recall, he states he was evaluated by cardiology while living in [place] potentially 10 years ago for similar type [...] denies SOB, Orthopnea, and PND. He does not have bleeding issues; no blood in urine, stool, or nosebleeds. He denies any decrease in energy level, myalgias, or claudication. He does have occasional swelling in his ankles. He does not have sudden weight gain. He denies lightheadedness, dizziness, syncopal or near syncopal episodes, and headaches. Intake Vital Signs 02/12/24 09:35 01/22/25 14:01 02/16/25 09:13 Height 6 ft 3 in 6 ft 3 in 6 ft 3 in Weight: 291 lb BMI 36.3 BP 103/70 Blood Pressure Location Lt brachial Position Sitting Respiration 18 Pulse 80 Pulse Source Monitor Intake Visit Reasons: 1 Y FU Clinical Account Specialist Required: No Accompanied by: Self Is patient in pain?: No Allergies doxycycline Allergy (Unknown, Verified 02/16/25 09:24) Hives colchicine Adverse Reaction (Severe, Verified 02/16/25 09:24) Emesis Medications ???Medication ???Instructions ???Recorded ???Confirmed ???Type albuterol sulfate 90 mcg/actuation 2 inh inhalation Q4-6H PRN 09/1702/16/25 Rx breath activated powder inhaler shortness of breath or wheezing #1 ea blood sugar diagnostic ([facility] 12/02/23 02/16/25 Rx Lite Strips) blood-glucose meter (FreeStyle #1 ea 12/02/23 02/16/25 Rx Lite Meter kit) lancets 28 gauge (FreeStyle #200 ea 12/02/23 02/16/25 Rx Lancets) diltiazem HCl 300 mg capsule,24 300 mg PO QPM #90 caps 04/14/24 Rx hr,extended release metformin 500 mg tablet,extended 1,000 mg (2 x 500 mg) PO BID 3 02/16/25 Rx release 24 hr months #360 tabs pramipexole 0.5 mg tablet 1 mg (2 x 0.5 mg) PO QHS #60 tabs 10/05/24 02/16/25 Rx hydrochlorothiazide 25 mg tablet 25 mg PO QPM #90 tabs 10/16/2404/05 Rx metoprolol succinate 25 mg 25 mg PO QHS #90 tabs 10/26/2404/05 Rx tablet,extended release 24 hr omeprazole 40 mg capsule,delayed 40 mg PO DAILY #90 caps 11/30/24 0 02/16/25 Rx release lisinopril 40 mg tablet 40 mg PO QDAY #90 tabs 12/03/24 Rx allopurinol 300 mg tablet 300 mg PO DAILY #90 tabs 01/21/25 02/16/25 Rx pregabalin 25 mg capsule 25 mg PO QDAY 02/16/25 02/16/25 Hi story pregabalin 75 mg capsule 75 mg PO QHS 02/16/25 02/16/25 His tory Have you fallen in the past year?: No [facility] Medical History (Reviewed 02/16/25 @ 09:23 by Iwona Worrell FLOOR STEWARD/STEWARDESS, FLOOR STEWARD/STEWARDESS-C) Leg cramps Screening, iron deficiency anemia Obesity [...] hypertension Obesity Gout Arrhythmia Tachycardia Surgical History (Reviewed 02/16/25 @ 09:24 by Iwona Worrell FLOOR STEWARD/STEWARDESS, FLOOR STEWARD/STEWARDESS-C) Hx of elbow surgery Hx of colonoscopy History of hernia repair History of sinus surgery Family History Mother Hypertension Grandfather Heart disease Myocardial infarction, Onset Age: 62 Grandmother Hypertension Heart disease Father Liver failure Social History Smoking Status: Never smoker alcohol intake: current alcohol intake frequency: (more content not included)... Normal [facility] 36on 02-11-2025 36 Will check in with patient at appt next week about this. Holding off on refill for now. Normal [facility] 36 Last follow up: 01/05/2025 Next appointment: 02/18/2025 Allergies[1] Requested Prescriptions Pending Prescriptions Disp Refills ergocalciferol (Vitamin D2) 1.25 MG (89119 UT) capsule [Pharmacy Med Name: Vitamin D (Ergocalciferol) 1.25 MG (22956 UT) Oral Capsule] 12 capsule 0 Sig: Take 1 capsule by mouth once a week Recommendations: - Reviewed compliance data: good overall [...] nasal pillows mask. - f/u 2 months. [facility] in [place] [1] Allergies Allergen Reactions Colchicine Nausea And Vomiting and Other Doxycycline Hives Normal [facility] Bilirubin directOrdered By: Elliot Trevino on 02-03-2025 Bilirubin.direct [Mass/Vol] 0.15 mg/dL 0.00-0.30 [facility] Bilirubin, totalOrdered By: Elliot Trevino on 02-03-2025 Bilirubin [Mass/Vol] 0.37 mg/dL 0.00-1.30 [facility] CPK Total, Creatine Kinaseon 02-03-2025 CPK TOTAL 279 U/L High 24-195 [facility] Comment on above: Performed By: #### L 500.3400, L501.3620 #### [facility] Laboratory [address] [place], [address] Laboratory - Chemistry and C hemistry - challengeOrdered By: Elliot Trevino on 02-03-2025 AST [Catalytic activity/Vol] 56 U/L High <38 [facility] Liver Profileon 02-03-2025 Albumin [Mass/Vol] 4.0 g/dL Normal 3.5-5.0 [facility] Comment on above: Performed By: #### L 500.3400, L501.3620 #### [facility] [address] [place], [address] ALK PHOS 91 U/L Normal 40-129 [facility] Comment on above: Performed By: #### L 500.3400, L501.3620 #### [facility] [address] [place], [address] ALT [Catalytic activity/Vol] 100 U/L High <=46 [facility] Comment on above: Performed By: #### L 500.3400, L501.3620 #### [facility] [address] [place], [address] AST [Catalytic activity/Vol] 56 U/L High <=37 [facility] Comment on above: Performed By: #### L 500.3400, L501.3620 #### [facility] [address] [place], [address] Bilirubin [Mass/Vol] 0.37 mg/dL Normal 0.00-1.30 [facility] Comment on above: Performed By: #### L 500.3400, L501.3620 #### [facility] [address] [place], [address] Bilirubin.direct [Mass/Vol] 0.15 mg/dL Normal 0.00-0.30 [facility] Comment on above: Performed By: #### L 500.3400, L501.3620 #### [facility] [address] [place], [address] Globulin (S) [Mass/Vol] 2.9 g/dL Normal 2.2-4.2 [facility] Comment on above: Performed By: #### L 500.3400, L501.3620 #### [facility] [address] [place], [address] T PROT 7.0 g/dL Normal 5.9-8.4 [facility] Comment on above: Performed By: #### L 500.3400, L501.3620 #### [facility] [address] [place], [address] Serum globulin measurementOr dered By: Elliot Trevino on 02-03-2025 Globulin (S) [Mass/Vol] 2.9 g/dL 2.2-4.2 [facility] Serum or plasma alanine kapadia otransferase (ALT) measurementOrdered By: Elliot Trevino on 02-03-2025 ALT [Catalytic activity/Vol] 100 U/L High <47 [facility] Serum or plasma albumin wayne urement (mass/volume)Ordered By: Elliot Trevino on 02-03-2025 Albumin [Mass/Vol] 4.0 g/dL 3.5-5.0 [facility] Serum or plasma alkaline sydni sphatase measurementOrdered By: Elliot Trevino on 02-03-2025 ALP [Catalytic activity/Vol] 91 U/L 40-129 [facility] Serum or plasma creatine kin ase activityOrdered By: Elliot Trevino on 02-03-2025 CK [Catalytic activity/Vol] 279 U/L High 24-195 [facility] Total proteinOrdered By: Francesca billie Uriel on 02-03-2025 Protein [Mass/Vol] 7.0 g/dL 5.9-8.4 [facility] 36on 02-02-2025 36 We have been playing phone tag all morning so I just scheduled him via [facility] 02/18/25 in office Normal [facility] ABD Limited w/ Elastographyo n 01-27-2025 ABD Limited w/ Elastography [facility] Imaging Services [address] [place], [place] [id number] ABD Limited w/ Elastography MR#: [id number] Acct: [id number] Name: GIOVANNI JOHNSON Rep #: [id number] : 1975 M 49 From: Gilson stafford MD PCP: Dr. Kalyeigh Singleton MD Status: REG CLI Study: ABD Limited w/ Elastography Date of Exam: 01/10 04/05 Exam# [id number] Ordering Dr: Kayleigh Singleton MD PROCEDURE: ABD [...] measurement may be in question. Reading Location: [facility] CC: Dr. 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, [address] Calcium [Mass/Vol] 9.4 mg/dL Normal 7.6-11.0 [facility] Comment on above: Order Comment: FOLLO W with PCP Performed By: #### L 500.2500 ####[facility] [address] [place], [address] Chloride [Moles/Vol] 101 mmol/L Normal 98-108 [facility] Comment on above: Order Comment: FOLLO W with PCP Performed By: #### L 500.2500 ####[facility] [address] [place], [address] CO2 [Moles/Vol] 26.5 mmol/L Normal 21.0-32.0 [facility] Comment on above: Order Comment: FOLLO W with PCP Performed By: #### L 500.2500 ####[facility] [address] [place], [address] Creatinine [Mass/Vol] 1.05 mg/dL Normal 0.70-1.20 [facility] Comment on above: Order Comment: FOLLO W with PCP Performed By: #### L 500.2500 ####[facility] [address] [place], [address] GAP 11 Normal 5-15 [facility] Comment on above: Order Comment: FOLLO W with PCP Performed By: #### L 500.2500 ####[facility] [address] [place], [address] GFR/1.73 sq M.predicted among non-blacks MDRD (S/P/Bld) [Vol rate/Area] 87 mL/min/{1.73_m2} Normal >60 [facility] Comment on above: Order Comment: FOLLO W with PCP Result Comment: mL/m in/1.73m2 CKD-EPI Creatinine Equation (2020) Performed By: #### L 500.2500 ####[facility] [address] [place], [address] Glucose [Mass/Vol] 112 mg/dL High 70-99 [facility] Comment on above: Order Comment: FOLLO W with PCP Performed By: #### L 500.2500 ####[facility] [address] [place], [address] Potassium [Moles/Vol] 4.4 mmol/L Normal 3.3-5.1 [facility] Comment on above: Order Comment: FOLLO W with PCP Performed By: #### L 500.2500 ####[facility] [address] [place], [address] Sodium [Moles/Vol] 138 mmol/L Normal 133-145 [facility] Comment on above: Order Comment: FOLLO W with PCP Performed By: #### L 500.2500 ####[facility] [address] [place], [place], [address] Urea nitrogen [Mass/Vol] 20 mg/dL High 4-19 [facility] Comment on above: Order Comment: FOLLO W with PCP Performed By: #### L 500.2500 ####[facility] [address] [place], [place], [address] Carbon dioxide, total [Moles /volume] in Central venous bloodOrdered By: Elliot Trevino on 01-27-2025 CO2 [Moles/Vol] 26.5 mmol/L 21.0-32.0 [facility] Chloride assayOrdered By: Jose Antonio Trevino on 01-27-2025 Chloride [Moles/Vol] 101 mmol/L 98-108 [facility] Glomerular filtration rate ( GFR) estimation/1.73 sq m using serum, plasma, or whole bOrdered By: Elliot Trevino on 01-27-2025 GFR/1.73 sq M.predicted among non-blacks MDRD (S/P/Bld) [Vol rate/Area] 87 mL/min/{1.73_m2} >60 [facility] Comment on above: mL/min/1.73m2 CKD-EP I Creatinine Equation (2020) Potassium measurement (mass/ volume)Ordered By: Elliot Trevino on 01-27-2025 Potassium (Unsp spec) [Mass/Vol] 4.4 mmol/L 3.3-5.1 [facility] Serum creatinine measurement (mass/volume)Ordered By: Elliot Trevino on 01-27-2025 Creatinine [Mass/Vol] 1.05 mg/dL 0.70-1.20 [facility] Serum glucose measurement (m ass/volume)Ordered By: Elliot Trevino on 01-27-2025 Glucose [Mass/Vol] 112 mg/dL High 70-99 [facility] Serum or plasma calcium wayne urement (mass/volume)Ordered By: Elliot Trevino on 01-27-2025 Calcium [Mass/Vol] 9.4 mg/dL 7.6-11.0 [facility] Serum or plasma urea nitroge n measurement (mass/volume)Ordered By: Elliot Trevino on 01-27-2025 Urea nitrogen [Mass/Vol] 20 mg/dL High 4-19 [facility] Sodium levelOrdered By: Wilbur Trevino on 01-27-2025 Sodium [Moles/Vol] 138 mmol/L 133-145 [facility] Gastroenterology Visit Repor ton 01-22-2025 Gastroenterology Visit Report [facility] Gastroenterology [address] [place] [address] OFFICE VISIT Date of Service: 01/22/25 MR#: [id number] Acct: [id number] Name: GIOVANNI JOHNSON Rep #: [id number] : 1975 Provider: Dr. Elliot winchester MD Age/Sex: 49/M [facility] Status: Signed Intake Vital Signs 01/08/25 13:37 [...] Social histor (more content not included)... Normal [facility] Anion gap in Serum or Plasma Ordered By: Kayleigh Singleton on 01-08-2025 Anion gap [Moles/Vol] 13 mmol/L 5-15 [facility] BUN/creatinine ratioOrdered By: Kayleigh Singleton on 01-08-2025 Urea nitrogen/Creatinine [Mass ratio] 19.2 mg/mg 10-20 [facility] Bilirubin, totalOrdered By: Kayleigh Singleton on 01-08-2025 Bilirubin [Mass/Vol] 0.46 mg/dL 0.00-1.30 [facility] Carbon dioxide, total [Moles /volume] in Central venous bloodOrdered By: Kayleigh Singleton on 01-08-2025 CO2 [Moles/Vol] 24.9 mmol/L 21.0-32.0 [facility] Chloride assayOrdered By: Mckenzie Singleton on 01-08-2025 Chloride [Moles/Vol] 99 mmol/L 98-108 [facility] Comprehensive Metabolic Prof ilon 01-08-2025 Albumin [Mass/Vol] 4.6 g/dL Normal 3.5-5.0 [facility] Comment on above: Performed By: #### L 501.5200, L500.4050 #### [facility] [address] [place], [address] Albumin/Globulin [Mass ratio] 1.4 {ratio} Normal 0.9-2.4 [facility] Comment on above: Performed By: #### L 501.5200, L500.4050 #### [facility] [address] [place], [address] ALK PHOS 86 U/L Normal 40-129 [facility] Comment on above: Performed By: #### L 501.5200, L500.4050 #### [facility] [address] [place], [address] ALT [Catalytic activity/Vol] 108 U/L High <=46 [facility] Comment on above: Performed By: #### L 501.5200, L500.4050 #### [facility] [address] [place], [address] AST [Catalytic activity/Vol] 58 U/L High <=37 [facility] Comment on above: Performed By: #### L 501.5200, L500.4050 #### [facility] [address] [place], [address] Bilirubin [Mass/Vol] 0.46 mg/dL Normal 0.00-1.30 [facility] Comment on above: Performed By: #### L 501.5200, L500.4050 #### [facility] [address] [place], [address] BUN/CRE 19.2 RATIO Normal 10-20 [facility] Comment on above: Performed By: #### L 501.5200, L500.4050 #### [facility] [address] [place], [address] Calcium [Mass/Vol] 9.9 mg/dL Normal 7.6-11.0 [facility] Comment on above: Performed By: #### L 501.5200, L500.4050 #### [facility] [address] [place], [address] Chloride [Moles/Vol] 99 mmol/L Normal 98-108 [facility] Comment on above: Performed By: #### L 501.5200, L500.4050 #### [facility] [address] [place], [address] CO2 [Moles/Vol] 24.9 mmol/L Normal 21.0-32.0 [facility] Comment on above: Performed By: #### L 501.5200, L500.4050 #### [facility] [address] [place], [address] Creatinine [Mass/Vol] 1.44 mg/dL High 0.70-1.20 [facility] Comment on above: Performed By: #### L 501.5200, L500.4050 #### [facility] [address] [place], [address] GAP 13 Normal 5-15 [facility] Comment on above: Performed By: #### L 501.5200, L500.4050 #### [facility] [address] [place], [address] GFR/1.73 sq M.predicted among non-blacks MDRD (S/P/Bld) [Vol rate/Area] 60 mL/min/{1.73_m2} Normal >60 [facility] Comment on above: Result Comment: mL/m in/1.73m2 CKD-EPI Creatinine Equation (2020) Performed By: #### L 501.5200, L500.4050 #### [facility] [address] [place], [address] Globulin (S) [Mass/Vol] 3.2 g/dL Normal 2.2-4.2 [facility] Comment on above: Performed By: #### L 501.5200, L500.4050 #### [facility] [address] [place], [address] Glucose [Mass/Vol] 115 mg/dL High 70-99 [facility] Comment on above: Performed By: #### L 501.5200, L500.4050 #### [facility] [address] [place], [address] Potassium [Moles/Vol] 4.2 mmol/L Normal 3.3-5.1 [facility] Comment on above: Performed By: #### L 501.5200, L500.4050 #### [facility] [address] [place], [address] Sodium [Moles/Vol] 136 mmol/L Normal 133-145 [facility] Comment on above: Performed By: #### L 501.5200, L500.4050 #### [facility] [address] [place], [address] T PROT 7.8 g/dL Normal 5.9-8.4 [facility] Comment on above: Performed By: #### L 501.5200, L500.4050 #### [facility] [address] [place], [address] Urea nitrogen [Mass/Vol] 28 mg/dL High 4-19 [facility] Comment on above: Performed By: #### L 501.5200, L500.4050 #### [facility] [address] [place], [address] Glomerular filtration rate ( GFR) estimation/1.73 sq m using serum, plasma, or whole bOrdered By: Efewongbe Oleghe on 01-08-2025 GFR/1.73 sq M.predicted among non-blacks MDRD (S/P/Bld) [Vol rate/Area] 60 mL/min/{1.73_m2} >60 [facility] Comment on above: mL/min/1.73m2 CKD-EP I Creatinine Equation (2020) Internal Medicine Office Vis iton 01-08-2025 Internal Medicine Office Visit [facility] [address] [place] [address] [place] [address] OFFICE VISIT Date of Service: 01/08/25 MR#: [id number] Acct: [id number] Name: GIOVANNI JOHNSON Rep #: [id number] : 1975 Provider: Dr. Kayleigh reagan MD Age/Sex: 49/M Location: [facility] Status: Signed Intake Vital Signs 10/05/24 08:46 [...] m fu Chief Complaint: 3 M FU Clinical Account Specialist Required: No Accompanied by: Self Is patient [...] the past year?: No PFSH Medical History (Updated 01/08/25 @ 16:20 by [...] from 6.9. An attempt was made at [facility] however this was not covered by his insurance and so he was switched to Victoza but he states that he never filled this as it was not available at the pharmacy. Has been more active due to his new job. Currently on metformin which he reports compliance with. History of hypertension, blood pressure today at 132/78 mmHg (more content not included)... Normal [facility] Laboratory - Chemistry and C hemistry - challengeOrdered By: Kayleigh Singleton on 01-08-2025 AST [Catalytic activity/Vol] 58 U/L High <38 [facility] - Hematology and Cell countsOrdered By: Kayleigh Singleton on 01-08-2025 HbA1c (Bld) [Mass fraction] 6.4 % High 4.2-6.3 [facility] Magnesiumon 01-08-2025 Magnesium [Mass/Vol] 1.8 mg/dL Normal 1.5-2.2 [facility] Comment on above: Performed By: #### L 501.2820, L500.4050 #### [facility] [address] [place], [place], [address] Magnesium measurement (mass/ volume)Ordered By: Kayleigh Singleton on 01-08-2025 Magnesium (Unsp spec) [Mass/Vol] 1.8 mg/dL 1.5-2.2 [facility] Potassium measurement (mass/ volume)Ordered By: Kayleigh Singleton on 01-08-2025 Potassium (Unsp spec) [Mass/Vol] 4.2 mmol/L 3.3-5.1 [facility] Serum creatinine measurement (mass/volume)Ordered By: Kayleigh Singleton on 01-08-2025 Creatinine [Mass/Vol] 1.44 mg/dL High 0.70-1.20 [facility] Serum globulin measurementOr dered By: Kayleigh Singleton on 01-08-2025 Globulin (S) [Mass/Vol] 3.2 g/dL 2.2-4.[address] [facility] Serum glucose measurement (m ass/volume)Ordered By: Kayleigh Singleton on 01-08-2025 Glucose [Mass/Vol] 115 mg/dL High 70-99 [facility] Serum or plasma alanine kapadia otransferase (ALT) measurementOrdered By: Kayleigh Singleton on 01-08-2025 ALT [Catalytic activity/Vol] 108 U/L High <47 [facility] Serum or plasma albumin wayne urement (mass/volume)Ordered By: Kayleigh Singleton on 01-08-2025 Albumin [Mass/Vol] 4.6 g/dL 3.5-5.0 [facility] Serum or plasma albumin/glob ulin mass ratioOrdered By: Kayleigh Singleton on 01-08-2025 Albumin/Globulin [Mass ratio] 1.4 {ratio} 0.9-2.4 [facility] Serum or plasma alkaline sydni sphatase measurementOrdered By: Kayleigh Singleton 01-08-2025 ALP [Catalytic activity/Vol] 86 U/L 40-129 [facility] Serum or plasma calcium wayne urement (mass/volume)Ordered By: Kayleigh Singleton on 01-08-2025 Calcium [Mass/Vol] 9.9 mg/dL 7.6-11.0 [facility] Serum or plasma urea nitroge n measurement (mass/volume)Ordered By: Kayleigh Singleton on 01-08-2025 Urea nitrogen [Mass/Vol] 28 mg/dL High 4-19 [facility] Sodium levelOrdered By: Arnaldo Singleton on 01-08-2025 Sodium [Moles/Vol] 136 mmol/L 133-145 [facility] Total proteinOrdered By: Johny Singleton on 01-08-2025 Protein [Mass/Vol] 7.8 g/dL 5.9-8.4 [facility] 37on 01-05-2025 37 - Please try decreasing [...] pulse oximetry reading on this set-up. Normal [facility] Office Visiton 01-05-2025 Follow-up visit [id number] Claudio Johnson 1975 M Date Provider Department Center 01/05/2025 [id number][facility] None No family history on file Level of Service:18536 [place] OFFICE/OUTPATIENT ESTABLISHED MOD MDM 30 MIN Reason for Visit and Comments: Follow-up [638268] - 6 week follow up appt, new mask is not working well, however, pressures are working very well. Normal [facility] Progress Noteon 01-05-2025 Progress Note [facility] [place] OFF[place] VISIT-SLEEP Date [...] the day. 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 Got [...] (Verified unchanged from last visit) Sleep Metrics: Leopold Sleepiness Scale: 11 (9 last visit) Past [...] 81 mg, Daily Blood Glucose Monitoring Suppl ([employer] True Met Air Gluc Meter) w/Device kit [...] pillows mask. (more content not included)... Normal [facility] 36on 12-01-2024 36 Spoke to Anya, was able to order mask in [place] through [employer]. Normal [facility] 36 Left Vm with Anya BELCHER, to see how to order a mask through [place], no option to choose a mask. Patient needs a hybrid mask. Normal [place] [address]on 11-30-2024 36 Ordered on 11/23/[address] 11-27-2024 36 Order submitted via [place] through [employer] for the pressure change. They do not have masks available to order on the online system, will look into that next week and ask rep from [employer] to add that ordering option for our office. Normal [facility] 36 MD Hannah Mcgill, RN Please send order for increase to 17/12 cmH2O and new hybrid mask. Normal [facility] 25-hydroxyvitamin D3 [Mass/V ol]on 11-24-2024 25-hydroxyvitamin D [Mass/Vol] 26 ng/mL Low 30 - 100 ng/mL [facility] Comment on above: Vitamin D Status 25- [place] Vitamin D: Deficiency: <20 ng/mL Insufficiency: 20 - 29 ng/mL Optimal: > or = 30 ng/mL For 25-OH Vitamin D testing on patients on D2-supplementation and patients for whom quantitation of D2 and D3 fractions is required, the QuestAssureD(TM) 25-OH VIT D, (D2,D3), LC/MS/MS is recommended: order code 15828 (patients >2yrs). See Note 1 Note 1 For additional information, please refer to http://education.appbackr.[employer]/faq/BOM340 (This link is being provided for informational/ educational purposes only.) Interpretation and review of laboratory results Abnormal [facility] Folateon 11-24-2024 Folate [Mass/Vol] 15.3 ng/mL [facility] ealt Comment on above: Reference Range Low: <3.4 Borderline: 3.4-5.4 Normal: >5.4 Magnesiumon 11-24-2024 Magnesium [Mass/Vol] 1.8 mg/dL 1.5 - 2 .5 mg/dL [facility] No Panel Informationon 11-[address] [facility] TSHon 11-24-2024 TSH Qn 1.63 m[IU]/L [facility] Vitamin B12on 11-24-2024 Cobalamin (Vitamin B12) [Mass/Vol] 422 pg/mL 200 - 1100 pg/mL [facility] 37on 11-23-2024 37 - maddison Normal [facility] Office Visiton 11-23-2024 Follow-up visit [id number] Claudio Johnson 1975 M Date Provider Department Center 11/23/2024 [id number][facility] None No family history on file Level of Service:67417 [place] OFFICE/OUTPATIENT ESTABLISHED MOD MDM 30 MIN Reason for Visit and Comments: Follow-up [445648] - Medication change Normal [facility] Progress Noteon 11-23-2024 Progress Note [facility] FO[place] UP OFFICE VISIT-SLEEP Date [...] (Verified unchanged from last visit) Sleep Metrics: Leopold Sleepiness Scale: 9 (8 last visit) Past [...] 81 mg, Daily Blood Glucose Monitoring Suppl ([employer] True Met Air Gluc Meter) w/Device kit [...] affect Labs/additional studies: Reviewed outside labs from [facility] Impression: Diagnosis Plan 1. RLS (restless legs syndrome) Magnesium Vitamin D Deficiency Screening (Vit D 25) TSH Vitamin B12 Folate Magnesium Vitamin D Deficiency Screening (Vit D 25) TSH Vitamin B12 Folate pram (more content not included)... [facility] 36on 11-09-2024 36 Name of Caller: Claudio wallace Contact Reason for Appointment: Patient called to reschedule his appointment with Dr oRcha on 11/23/24 due to the time. First available afternoon appointment is on 12/21/24. Patient stated that he will keep his appointment on 11/23/24 for now. Added patient to waiting list. Patient asking for a call if an afternoon appointment becomes available. Please be advised. Office Name: Sleep Medicine Medication Refills need, if any: N/A Medication Name: N/A Normal [facility] Urgent Care Visit Reporton 0 10-09-2024 Urgent Care Visit Report [facility] [address], [address] [place] [id number] OFFICE VISIT Date of Service: 10/09/24 MR#: [id number] Acct: [id number] Name: GIOVANNI JOHNSON Rep #: [id number] : 1975 Provider: CRISTINA Davila Age/Sex: 49/M Location: [facility] Status: Signed Intake Vital Signs 10/05/24 08:46 Height 6 ft 3 in Weight: 303 lb BMI 37.8 BP 142/78 H Blood Pressure Location Lt brachial Position Sitting Respiration 16 Pulse 78 Pulse Source Monitor Temp 96.4 F L Temp Source Temporal Pulse Oximetry (%) 98 Oxygen Delivery Method room air Intake Visit Reasons: PE NON DOT PHYSICAL/ [employer] [place] Accompanied by: Self Allergies doxycycline Allergy (Unknown, [...] Note: Patient here for a pre-employment physical. [facility] Medical History Screening, iron deficiency anemia Obesity [...] Edwards Signature: Date (if applicable) CC: Normal [facility] Absolute lymphocyte countOrd ered By: Kayleigh Singleton on 10-05-2024 Lymphocytes Auto (Unsp spec) [#/Vol] 2.07 10*3/uL 0.83-4.51 [facility] Absolute neutrophil countOrd ered By: Kayleigh Singleton on 10-05-2024 Neutrophils (Bld) [#/Vol] 3.3 10*3/uL 2.0-7.7 [facility] Albumin to globulin ratioOrd ered By: Kayleigh Singleton on 10-05-2024 Albumin/Globulin [Mass ratio] 1.0 {ratio} 0.9-2.4 [facility] Automated lymphocyte count a s percentage of total leukocytesOrdered By: Kayleigh Singleton on 10-05-2024 Lymphocytes/100 WBC Auto (Unsp spec) 32.6 % [facility] Basophil percentageOrdered B y: Kayleigh Singleton on 10-05-2024 Basophils/100 WBC (Bld) 1.4 % High 0-[address] [facility] Bilirubin, totalOrdered By: Kayleigh Singleton on 10-05-2024 Bilirubin [Mass/Vol] 0.50 mg/dL 0.20-1.00 [facility] Comment on above: For patients on eltr ombopag therapy, use of Dimension [place] TBIL is not recommended. Blood urea nitrogen (BUN)/cr eatinine ratioOrdered By: Kayleigh Singleton on 10-05-2024 Urea nitrogen/Creatinine [Mass ratio] 14.7 mg/mg - [facility] CBC W/Diff, Automatedon 09-13 Absolute Lymph 2.07 X10 3/uL Normal 0.83-4.51 [facility] Comment on above: Performed By: #### L 500.4050, L500.4100, L100.0100 #### [facility] [address] [place], [address] Absolute Neut 3.3 X10 3/uL Normal 2.0-7.7 [facility] Comment on above: Performed By: #### L 500.4050, L500.4100, L100.0100 #### [facility] [address] [place], [address] Basophils/100 WBC (Bld) 1.4 % High 0-[address] [facility] Comment on above: Performed By: #### L 500.4050, L500.4100, L100.0100 #### [facility] [address] [place], [address] Eosinophils/100 WBC (Bld) 2.7 % Normal 0-5 [facility] Comment on above: Performed By: #### L 500.4050, L500.4100, L100.0100 #### [facility] [address] [place], [address] Erythrocyte distribution width (RBC) [Ratio] 13.8 % Normal 11.6-14.6 [facility] Comment on above: Performed By: #### L 500.4050, L500.4100, L100.0100 #### [facility] [address] [place], [address] Hematocrit (Bld) [Volume fraction] 50.8 % Normal 40-54 [facility] Comment on above: Performed By: #### L 500.4050, L500.4100, L100.0100 #### [facility] [address] [facility] [place], [address] Hemoglobin (Bld) [Mass/Vol] 16.3 g/dL Normal 13.0-16.5 [facility] Comment on above: Performed By: #### L 500.4050, L500.4100, L100.0100 #### [facility] [address] [facility] [place], [address] IG% 0.500 Normal 0.0-0.9 [facility] Comment on above: Result Comment: IG% - Immature Granulocytes (promyelocytes, myelocytes and metamyelocytes) > 1% indicates that a LEFT SHIFT is Present. Performed By: #### L 500.4050, L500.4100, L100.0100 #### [facility] [address] [facility] [place], [address] Lymphocytes/100 WBC (Bld) 32.6 % Normal 19-41 [facility] Comment on above: Performed By: #### L 500.4050, L500.4100, L100.0100 #### [facility] [address] [facility] [place], [address] MCH (RBC) [Entitic mass] 28.7 pg Normal 27.0-32.0 [facility] Comment on above: Performed By: #### L 500.4050, L500.4100, L100.0100 #### [facility] [address] [place], [address] MCHC (RBC) [Mass/Vol] 32.1 g/dL Normal 32-36 [facility] Comment on above: Performed By: #### L 500.4050, L500.4100, L100.0100 #### [facility] [address] [place], [address] MCV (RBC) [Entitic vol] 89.4 fL Normal 80-94 [facility] Comment on above: Performed By: #### L 500.4050, L500.4100, L100.0100 #### [facility] [address] [place], [address] Monocytes/100 WBC (Bld) 10.4 % High 0-10 [facility] Comment on above: Performed By: #### L 500.4050, L500.4100, L100.0100 #### [facility] [address] [place], [address] Neutrophils/100 WBC (Bld) 52.4 % Normal 47-70 [facility] Comment on above: Performed By: #### L 500.4050, L500.4100, L100.0100 #### [facility] [address] [place], [address] Nucleated RBC (Bld) [#/Vol] 0 10*3/uL Normal 0-5 [facility] Comment on above: Performed By: #### L 500.4050, L500.4100, L100.0100 #### [facility] [address] [place], [address] Platelet mean volume (Bld) [Entitic vol] 11.4 fL Normal 6.2-12.0 [facility] Comment on above: Performed By: #### L 500.4050, L500.4100, L100.0100 #### [facility] [address] [place], [address] Platelets (Bld) [#/Vol] 259 10*3/uL Normal 150-450 [facility] Comment on above: Performed By: #### L 500.4050, L500.4100, L100.0100 #### [facility] [address] [place], [address] RBC (Bld) [#/Vol] 5.68 10*6/uL Normal 4.6-6.2 [facility] Comment on above: Performed By: #### L 500.4050, L500.4100, L100.0100 #### [facility] [address] [place], [address] RDW SD 45.2 fl High 35.1-43.9 [facility] Comment on above: Performed By: #### L 500.4050, L500.4100, L100.0100 #### [facility] [address] [place], [address] WBC (Bld) [#/Vol] 6.3 10*3/uL Normal 4.4-11.0 [facility] Comment on above: Performed By: #### L 500.4050, L500.4100, L100.0100 #### [facility] [address] [place], [address] Carbon dioxide measurementOr dered By: Kayleigh Singleton on 10-05-2024 CO2 [Moles/Vol] 27.0 mmol/L 21.0-32.0 [facility] Chloride measurementOrdered By: Kayleigh Singleton on 10-05-2024 Chloride [Moles/Vol] 104 mmol/L 98-107 [facility] Comprehensive Metabolic Prof ilon 10-05-2024 Albumin [Mass/Vol] 3.9 g/dL Normal 3.2-5.0 [facility] Comment on above: Performed By: #### L 500.4050, L500.4100, L100.0100 #### [facility] [address] [place], [address] Albumin/Globulin [Mass ratio] 1.0 {ratio} Normal 0.9-2.4 [facility] Comment on above: Performed By: #### L 500.4050, L500.4100, L100.0100 #### [facility] [address] [place], [address] ALK P 110 U/L Normal 45-117 [facility] Comment on above: Performed By: #### L 500.4050, L500.4100, L100.0100 #### [facility] [address] [place], [address] ALT [Catalytic activity/Vol] 150 U/L High 16-61 [facility] Comment on above: Performed By: #### L 500.4050, L500.4100, L100.0100 #### [facility] [address] [place], [address] AST [Catalytic activity/Vol] 62 U/L High 15-37 [facility] Comment on above: Performed By: #### L 500.4050, L500.4100, L100.0100 #### [facility] [address] [place], [address] Bilirubin [Mass/Vol] 0.50 mg/dL Normal 0.20-1.00 [facility] Comment on above: Result Comment: For patients on eltrombopag therapy, use of Dimension [place] TBIL is not recommended. Performed By: #### L 500.4050, L500.4100, L100.0100 #### [facility] [address] [place], [address] BUN/CRE 14.7 RATIO Normal 10-20 [facility] Comment on above: Performed By: #### L 500.4050, L500.4100, L100.0100 #### [facility] [address] [place], [address] CA,Total 9.4 mg/dL Normal 8.5-10.1 [facility] Comment on above: Performed By: #### L 500.4050, L500.4100, L100.0100 #### [facility] [address] [place], [address] Chloride [Moles/Vol] 104 mmol/L Normal 98-107 [facility] Comment on above: Performed By: #### L 500.4050, L500.4100, L100.0100 #### [facility] [address] [place], [address] CO2 [Moles/Vol] 27.0 mmol/L Normal 21.0-32.0 [facility] Comment on above: Performed By: #### L 500.4050, L500.4100, L100.0100 #### [facility] [address] [place], [address] Creatinine [Mass/Vol] 1.09 mg/dL Normal 0.70-1.30 [facility] Comment on above: Result Comment: The validity of the calculated GFR GFRAA in patients over 70 years has not been determined. Clinical correlation is essential. Performed By: #### L 500.4050, L500.4100, L100.0100 #### [facility] [address] [place], [address] EST GFR - AA 92 mL/min Normal >60 [facility] Comment on above: Result Comment: Afri can Samoan GFR Calc Performed By: #### L 500.4050, L500.4100, L100.0100 #### [facility] [address] [place], [address] GAP 6 Normal 5-15 [facility] Comment on above: Performed By: #### L 500.4050, L500.4100, L100.0100 #### [facility] [address] [place], [address] GFR/1.73 sq M.predicted among non-blacks MDRD (S/P/Bld) [Vol rate/Area] 76 mL/min/{1.73_m2} Normal >60 [facility] Comment on above: Result Comment: Non- GFR Calc Performed By: #### L 500.4050, L500.4100, L100.0100 #### [facility] [address] [place], [address] Globulin (S) [Mass/Vol] 3.8 g/dL Normal 2.2-4.[address] [facility] Comment on above: Performed By: #### L 500.4050, L500.4100, L100.0100 #### [facility] [address] [place], [address] Glucose [Mass/Vol] 130 mg/dL High 74-106 [facility] Comment on above: Result Comment: Fast ing Glucose result greater than or equal to 126 mg/dL suggests DIABETES MELLITUS per A.D.A. criteria. Performed By: #### L 500.4050, L500.4100, L100.0100 #### [facility] [address] [place], [address] Potassium [Moles/Vol] 4.3 mmol/L Normal 3.5-5.1 [facility] Comment on above: Performed By: #### L 500.4050, L500.4100, L100.0100 #### [facility] [address] [place], [address] Sodium [Moles/Vol] 137 mmol/L Normal 136-145 [facility] Comment on above: Performed By: #### L 500.4050, L500.4100, L100.0100 #### [facility] [address] [place], [address] T PROT 7.7 g/dL Normal 6.4-8.2 [facility] Comment on above: Performed By: #### L 500.4050, L500.4100, L100.0100 #### [facility] [address] [place], [address] Urea nitrogen [Mass/Vol] 16 mg/dL Normal 7-18 [facility] Comment on above: Performed By: #### L 500.4050, L500.4100, L100.0100 #### [facility] [address] [place], [address] Eosinophil percentageOrdered By: Kayleigh Singleton on 10-05-2024 Eosinophils/100 WBC (Bld) 2.7 % 0-5 [facility] Erythrocyte distribution wid th ratioOrdered By: Kayleigh Singleton on 10-05-2024 Erythrocyte distribution width (RBC) [Ratio] 13.8 % 11.6-14.6 [facility] Erythrocyte distribution wid th standard deviationOrdered By: Kayleigh Singleton on 10-05-2024 Erythrocyte distribution width (RBC) [Entitic vol] 45.2 fL High 35.1-43.9 [facility] Erythrocyte distribution width (RBC) [Ratio] 45.2 fl High 35.1-43.9 [facility] Estimated glomerular filtrat ion rate (GFR) AmericanOrdered By: Kyaleigh Singleton on 10-05-2024 Estimated GFR (MDRD) Amer 92 mL/min >60 [facility] Comment on above: GFR Calc Glomerular filtration rate ( GFR) estimationOrdered By: Kayleigh Singleton on 10-05-2024 Estimated GFR (MDRD) Non-Af Amer 76 mL/min >60 [facility] Comment on above: Non- GFR Calc GFR/1.73 sq M.predicted among non-blacks MDRD (S/P/Bld) [Vol rate/Area] 76 mL/min/{1.73_m2} >60 [facility] Comment on above: Non- GFR Calc Glucose measurementOrdered B y: Kayleigh Singleton on 10-05-2024 Glucose [Mass/Vol] 130 mg/dL High 74-106 [facility] Comment on above: Fasting Glucose resu lt greater than or equal to 126 mg/dL suggests DIABETES MELLITUS per A.D.A. criteria. Hematocrit Auto (Bld) [Volum e fraction]Ordered By: Kayleigh Singleton on 10-05-2024 Hematocrit (Bld) [Volume fraction] 50.8 % 40-54 [facility] Hemoglobin measurementOrdere d By: Kayleigh Singleton on 10-05-2024 Hemoglobin (Bld) [Mass/Vol] 16.3 g/dL 13.0-16.5 [facility] High density lipoprotein (HD L) measurementOrdered By: Kayleigh Singleton on 10-05-2024 Cholesterol in HDL [Mass/Vol] 43 mg/dL >40 [facility] Comment on above: The drugs N-Acetylcy steine and Metamizole may falsely depress this assay. Reference Range HDL <40 mg/dL Low HDL Cholesterol HDL >or= 60 mg/dL High HDL Cholesterol Immature granulocytes/100 WB C Auto (Bld)Ordered By: Kayleigh Singleton on 10-05-2024 Immature granulocytes/100 WBC (Bld) 0.500 % 0.0-0.9 [facility] Comment on above: IG% - Immature Granu locytes (promyelocytes, myelocytes and metamyelocytes) > 1% indicates that a LEFT SHIFT is Present. Internal Medicine Office Vis iton 10-05-2024 Internal Medicine Office Visit [facility] [address] [place] [address] [place] [address] OFFICE VISIT Date of Service: 10/05/24 MR#: [id number] Acct: [id number] Name: GIOVANNI JOHNSON Rep #: [id number] : 1975 Provider: Dr. Kayleigh reagan MD Age/Sex: 49/M Location: [facility] Status: Signed Intake Vital Signs 07/06/24 09:05 [...] M FU Chief Complaint: 3 M FU Clinical Account Specialist Required: No Accompanied by: Self Is patient [...] his me (more content not included)... Normal [facility] - Chemistry and C hemistry - challengeOrdered By: Kayleigh Singleton on 10-05-2024 AST [Catalytic activity/Vol] 62 U/L High 15-37 [facility] - Hematology and Cell countsOrdered By: Kayleigh Singleton on 10-05-2024 HbA1c (Bld) [Mass fraction] 6.9 % High 4.2-6.3 [facility] Lipid Profileon 10-05-2024 Cholesterol [Mass/Vol] 189 mg/dL Normal 200 [facility] Comment on above: Result Comment: <200 mg/dL Desirable 200-240 mg/dL Borderline >240 mg/dL High Risk Performed By: #### L 500.4050, L500.4100, L100.0100 #### [facility] [address] [place], [address] Cholesterol in HDL [Mass/Vol] 43 mg/dL Normal [facility] Comment on above: Result Comment: The drugs N-Acetylcysteine and Metamizole may falsely depress this assay. Reference Range HDL <40 mg/dL Low HDL Cholesterol HDL >or= 60 mg/dL High HDL Cholesterol Performed By: #### L 500.4050, L500.4100, L100.0100 #### [facility] [address] [place], [address] Cholesterol in LDL [Mass/Vol] 100 mg/dL Normal 0-130 [facility] Comment on above: Performed By: #### L 500.4050, L500.4100, L100.0100 #### [facility] [address] [place], [address] Cholesterol in VLDL [Mass/Vol] 46 mg/dL High 5-40 [facility] Comment on above: Performed By: #### L 500.4050, L500.4100, L100.0100 #### [facility] [address] [place], [address] Triglyceride [Mass/Vol] 229 mg/dL High [facility] Comment on above: Result Comment: The drugs N-Acetylcysteine and Metamizole may falsely depress this assay. Serum Triglycerides Reference Interval Normal <150 mg/dL Borderline high 150 - 199 mg/dL High 200 - 499 mg/dL Very High > or = 500 mg/dL Performed By: #### L 500.4050, L500.4100, L100.0100 #### [facility] [address] [place], [address] Low density lipoprotein (LDL ) cholesterol measurementOrdered By: Kayleigh Singleton on 10-05-2024 Cholesterol in LDL [Mass/Vol] 100 mg/dL 0-130 [facility] Lymphocytes Auto (Unsp spec) [#/Vol]Ordered By: Kayleigh Singleton on 10-05-2024 Lymphocytes (Bld) [#/Vol] 2.07 10*3/uL 0.83-4.51 [facility] Lymphocytes/100 WBC Auto (Un sp spec)Ordered By: Kayleigh Singleton on 10-05-2024 Lymphocytes/100 WBC (Bld) 32.6 % 19-41 [facility] MCV (mean corpuscular volume ) determinationOrdered By: Kayleigh Singleton on 10-05-2024 MCV (RBC) [Entitic vol] 89.4 fL 80-[address] [facility] Mean corpuscular hemoglobin (MCH) determinationOrdered By: Kayleigh Singleton on 10-05-2024 MCH (RBC) [Entitic mass] 28.7 pg 27.0-32.0 [facility] Mean corpuscular hemoglobin concentration (MCHC) determinationOrdered By: Kayleigh Singleton on 10-05-2024 MCHC (RBC) [Mass/Vol] 32.1 g/dL 32-36 [facility] Mean platelet volume determi nationOrdered By: Kayleigh Singleton on 10-05-2024 Platelet mean volume (Bld) [Entitic vol] 11.4 fL 6.2-12.0 [facility] Monocyte percentageOrdered B y: Kayleigh Singleton on 10-05-2024 Monocytes/100 WBC (Bld) 10.4 % High 0-[address] [facility] Neutrophil percentageOrdered By: Kayleigh Singleton on 10-05-2024 Neutrophils/100 WBC (Bld) 52.4 % 47-70 [facility] Nucleated red blood cell per centageOrdered By: Kayleigh Singleton on 10-05-2024 Nucleated RBC/100 WBC (Bld) [Ratio] 0 % 0-5 [facility] Platelet countOrdered By: Mckenzie Singleton on 10-05-2024 Platelets (Bld) [#/Vol] 259 10*3/uL 150-450 [facility] Potassium measurementOrdered By: Kayleigh Singleton on 10-05-2024 Potassium [Moles/Vol] 4.3 mmol/L 3.5-5.1 [facility] RBC Auto (Bld) [#/Vol]Ordere d By: Kayleigh Singleton on 10-05-2024 RBC (Bld) [#/Vol] 5.68 10*6/uL 4.6-6.2 [facility] Serum anion gap measurementO rdered By: Kayleigh Singleton on 10-05-2024 Anion gap [Moles/Vol] 6 mmol/L 5-15 [facility] Serum globulin measurementOr dered By: Kayleigh Singleton on 10-05-2024 Globulin (S) [Mass/Vol] 3.8 g/dL 2.2-4.[address] [facility] Serum or plasma alanine kapadia otransferase (ALT) measurementOrdered By: Kayleigh Singleton on 10-05-2024 ALT [Catalytic activity/Vol] 150 U/L High 16-61 [facility] Serum or plasma albumin wayne urement (mass/volume)Ordered By: Kayleigh Singleton on 10-05-2024 Albumin [Mass/Vol] 3.9 g/dL 3.2-5.0 [facility] Serum or plasma alkaline sydni sphatase measurementOrdered By: Kayleigh Singleton on 10-05-2024 ALP [Catalytic activity/Vol] 110 U/L 45-117 [facility] Serum or plasma calcium wayne urement (mass/volume)Ordered By: Kayleigh Singleton on 10-05-2024 Calcium [Mass/Vol] 9.4 mg/dL 8.5-10.1 [facility] Serum or plasma cholesterol measurement (mass/volume)Ordered By: Kayleigh Singleton on 10-05-2024 Cholesterol [Mass/Vol] 189 mg/dL <200 [facility] Comment on above: <200 mg/dL Desirable 200-240 mg/dL Borderline >240 mg/dL High Risk Serum or plasma creatinine m easurement (mass/volume)Ordered By: Kayleigh Singleton on 10-05-2024 Creatinine [Mass/Vol] 1.09 mg/dL 0.70-1.30 [facility] Comment on above: The validity of the calculated GFR & GFRAA in patients over 70 years has not been determined. Clinical correlation is essential. Serum or plasma urea nitroge n measurement (mass/volume)Ordered By: Kayleigh Singleton on 10-05-2024 Urea nitrogen [Mass/Vol] 16 mg/dL 7-18 [facility] Sodium levelOrdered By: Arnaldo Singleton on 10-05-2024 Sodium [Moles/Vol] 137 mmol/L 136-145 [facility] Total proteinOrdered By: Johny Singleton on 10-05-2024 Protein [Mass/Vol] 7.7 g/dL 6.4-8.2 [facility] Triglycerides measurementOrd ered By: Kayleigh Singleton on 10-05-2024 Triglyceride [Mass/Vol] 229 mg/dL High <199 [facility] Comment on above: The drugs N-Acetylcy steine and Metamizole may falsely depress this assay.Serum Triglycerides Reference Interval Normal <150 mg/dL Borderline high 150 - 199 mg/dL High 200 - 499 mg/dL Very High > or = 500 mg/dL Very low density lipoprotein (VLDL) cholesterol measurementOrdered By: Kayleigh Singleton on 10-05-2024 Very low density lipoprotein (VLDL) cholesterol measurement 46 mg/dL High 5-40 [facility] VLDL Cholesterol 46 mg/dL High 5-40 [facility] White blood cell (WBC) count Ordered By: Kayleigh Singleton on 10-05-2024 WBC (Bld) [#/Vol] 6.3 10*3/uL 4.4-11.0 [facility] 36on 09-25-2024 36 Faxed order demo insurance info ov note to [employer] for new hybrid mask & pressure change 16/11 cmH2O on his bipap [facility] 37on 09-24-2024 37 - Keep your pramipexole [...] - I'll check in with you via [employer] in a couple weeks, and then we'll follow-up in the office in a few months. Normal [facility] Office Visiton 09-24-2024 Follow-up visit [id number] Claudio Johnson Rommel 1975 M Date Provider Department Center 09/24/2024 [id number] None No family history on file Level of Service:73108 [place] OFFICE/OUTPATIENT NEW HIGH MDM 60 MINUTES Reason for Visit and Comments: New Patient [542] - Restless Legs Normal [facility] Progress Noteon 09-24-2024 Progress Note [facility] [place] NEW PATIENT OFFICE VISIT-SLEEP MEDICINE [...] lbs in past 2 years Sleep Metrics: Leopold Sleepiness Scale: Total score: 8 Past Treatments: [...] abnormality, at (more content not included)... Normal [facility] 36on 08-13-2024 36 Patient is scheduled with us now, thank you! Normal [facility] Internal Medicine Office Vis iton 07-06-2024 Internal Medicine Office Visit [facility] [address] [place], [place] [id number] OFFICE VISIT Date of Service: 07/06/24 MR#: [id number] Acct: [id number] Name: GIOVANNI JOHNSON Rep #: [id number] : 1975 Provider: Dr. Kayleigh reagan MD Age/Sex: 49/M Location: [facility] Status: Signed Intake Vital Signs 03/30/24 08:50 [...] M FU Chief Complaint: 3 M FU Clinical Account Specialist Required: No Accompanied by: Self Is patient [...] headache(s), snorin (more content not included)... Normal [facility] Laboratory - Hematology and Cell countson 07-06-2024 HbA1c (Bld) [Mass fraction] 6.7 % High 4.2-6.3 [facility] Absolute lymphocyte countOrd ered By: Kayleigh Singleton on 09-25-2023 Lymphocytes Auto (Unsp spec) [#/Vol] 2.43 10*3/uL 0.83-4.51 [facility] Automated lymphocyte count a s percentage of total leukocytesOrdered By: Kayleigh Singleton on 09-25-2023 Lymphocytes/100 WBC Auto (Unsp spec) 28.7 % 19-41 [facility] Basophil percentageOrdered B y: Kayleigh Singleton on 09-25-2023 Basophils/100 WBC (Bld) 0.9 % 0-[address] [facility] Bilirubin [Mass/Vol] 0.60 mg/dL 0.20-1.00 [facility] Comment on above: For patients on eltr ombopag therapy, use of Dimension [place] TBIL is not recommended. Chloride [Moles/Vol] 106 mmol/L 98-107 [facility] Eosinophils/100 WBC (Bld) 1.4 % 0-5 [facility] Glucose [Mass/Vol] 107 mg/dL 74-106 [facility] Comment on above: Fasting Glucose resu lt from 100 to 125 mg/dL suggests IMPAIRED HOMEOSTASIS per A.D.A. criteria. Hemoglobin (Bld) [Mass/Vol] 15.6 g/dL 13.0-16.5 [facility] Monocytes/100 WBC (Bld) 10.8 % 0-[address] [facility] Neutrophils (Bld) [#/Vol] 4.8 10*3/uL 2.0-7.7 [facility] Neutrophils/100 WBC (Bld) 56.3 % 47-70 [facility] Potassium [Moles/Vol] 4.2 mmol/L 3.5-5.1 [facility] Protein [Mass/Vol] 7.1 g/dL 6.4-8.2 [facility] Sodium [Moles/Vol] 136 mmol/L 136-145 [facility] WBC (Bld) [#/Vol] 8.5 10*3/uL 4.4-11.0 [facility] Determination of erythrocyte mean corpuscular volume (MCV)Ordered By: Kayleigh Singleton on 09-25-2023 MCV (RBC) [Entitic vol] 88.3 fL 80-[address] [facility] Erythrocyte distribution wid th ratioOrdered By: Kayleigh Singleton on 09-25-2023 Erythrocyte distribution width (RBC) [Ratio] 14.0 % 11.6-14.6 [facility] Erythrocyte distribution wid th standard deviationOrdered By: Kayleigh Singleton on 09-25-2023 Erythrocyte distribution width (RBC) [Entitic vol] 45.1 fL 35.1-43.9 [facility] Hematocrit Auto (Bld) [Volum e fraction]Ordered By: Kayleigh Singleton on 09-25-2023 Hematocrit (Bld) [Volume fraction] 47.5 % 40-54 [facility] Immature granulocytes/100 WB C Auto (Bld)Ordered By: Kayleigh Singleton on 09-25-2023 Immature granulocytes/100 WBC (Bld) 1.900 % 0.0-0.9 [facility] Comment on above: IG% - Immature Granu locytes (promyelocytes, myelocytes and metamyelocytes) > 1% indicates that a LEFT SHIFT is Present. Laboratory - Chemistry and C hemistry - challengeOrdered By: Kayleigh Singleton on 09-25-2023 Albumin/Globulin [Mass ratio] 0.9 {ratio} 0.9-2.4 [facility] ALP [Catalytic activity/Vol] 98 U/L 45-117 [facility] ALT [Catalytic activity/Vol] 176 U/L 16-61 [facility] CO2 [Moles/Vol] 26.0 mmol/L 21.0-32.0 [facility] Globulin (S) [Mass/Vol] 3.7 g/dL 2.2-4.2 [facility] Urea nitrogen/Creatinine [Mass ratio] 15.3 mg/mg 10-20 [facility] Laboratory - Hematology and Cell countsOrdered By: Kayleigh Singleton on 09-25-2023 MCH (RBC) [Entitic mass] 29.0 pg 27.0-32.0 [facility] MCHC (RBC) [Mass/Vol] 32.8 g/dL 32-36 [facility] Nucleated RBC/100 WBC (Bld) [Ratio] 0 % 0-5 [facility] Platelet mean volume (Bld) [Entitic vol] 10.8 fL 6.2-12.0 [facility] Platelets (Bld) [#/Vol] 292 10*3/uL 150-450 [facility] Laboratory - Hematology and Cell countson 09-25-2023 HbA1c (Bld) [Mass fraction] 7.5 % 4.2-6.3 [facility] No Panel InformationOrdered By: Kayleigh Singleton on 09-25-2023 Estimated GFR (MDRD) Amer 85 mL/min >60 [facility] Comment on above: GFR Calc Estimated GFR (MDRD) Non-Af Amer 70 mL/min >60 [facility] Comment on above: Non- GFR Calc Urine Microalbumin/Creatinine Ratio 4.2 mg/g CRE <30 [facility] RBC Auto (Bld) [#/Vol]Ordere d By: Kayleigh Singleton on 09-25-2023 RBC (Bld) [#/Vol] 5.38 10*6/uL 4.6-6.2 [facility] Serum or plasma calcium wayne urement (mass/volume)Ordered By: Kayleigh Singleton on 09-25-2023 Calcium [Mass/Vol] 9.2 mg/dL 8.5-10.1 [facility] Serum or plasma creatinine m easurement (mass/volume)Ordered By: Kayleigh Singleton on 09-25-2023 Creatinine [Mass/Vol] 1.18 mg/dL 0.70-1.30 [facility] Comment on above: The validity of the calculated GFR & GFRAA in patients over 70 years has not been determined. Clinical correlation is essential. Serum or plasma urea nitroge n measurement (mass/volume)Ordered By: Kayleigh Singleton on 09-25-2023 Urea nitrogen [Mass/Vol] 18 mg/dL 7-18 [facility] Thin prep Papanicolaou smear with manual screeningOrdered By: Kayleigh Singleton on 09-25-2023 Thin prep Papanicolaou smear with manual screening 3.4 g/dL 3.2-5.0 [facility] Thin prep Papanicolaou smear with manual screening 68 U/L 15-37 [facility] Thin prep Papanicolaou smear with manual screening 4 5-15 [facility] Thin prep Papanicolaou smear with manual screening 11.7 mg/L NO RANGE EST. [facility] Urine creatinine measurement (mass/volume)Ordered By: Kayleigh Singleton on 09-25-2023 Creatinine (U) [Mass/Vol] 276.00 mg/dL NO RANGE EST. [facility] Gram stain for investigation of transfusion reactionOrdered By: Roe Combs on 08-19-2023 Microscopic observation Gram stain Nom (Unsp spec) [facility] No Panel InformationOrdered By: Roe Combs on 08-19-2023 Nasopharyngeal Culture No growth in 48 hours. [facility] Laboratory - Hematology and Cell countson 06-19-2023 HbA1c (Bld) [Mass fraction] 6.4 % 4.2-6.3 [facility] Gram stain for investigation of transfusion reactionOrdered By: Seymour Erickson on 05-31-2023 Microscopic observation Gram stain Nom (Unsp spec) [facility] Gram stain for investigation of transfusion reactionOrdered By: Seymour Erickson on 05-30-2023 Microscopic observation Gram stain Nom (Unsp spec) [facility] Anaerobic cultureOrdered By: Seymour Erickson on 05-08-2023 Bacteria identified Anaer cx Nom (Unsp spec) No growth in 5 days. [facility] Fungus cultureOrdered By: Jasen Erickson on 05-08-2023 Fungus identified Cx Nom (Unsp spec) [facility] Fungus identified Cx Nom (Unsp spec) [facility] Fungus stainOrdered By: Jamey Erickson on 05-08-2023 Fungus identified Fungus stain Nom (Unsp spec) [facility] Fungus identified Fungus stain Nom (Unsp spec) [facility] Glucose Glucometer (dC) [M ass/Vol]Ordered By: Seymour Erickson on 05-08-2023 Glucose [Mass/Vol] 110 mg/dL 74-106 [facility] Comment on above: MANAGEMENT OF PATIEN T CARE PER NURSING PROTOCOL Gram stain for investigation of transfusion reactionOrdered By: Seymour Erickson on 05-08-2023 Microscopic observation Gram stain Nom (Unsp spec) [facility] Routine wound cultureOrdered By: Seymour Erickson on 05-08-2023 Bacteria identified Cx Nom (Wound) No growth aerobically. [facility] XR RIBS 2 VIEWS LEFT/PA CHES [...] 04/03/2023 2:25:02 PM Ordering Provider: [facility] Basophil percentageOrdered B y: Kayleigh Singleton on 03-14-2023 Bilirubin [Mass/Vol] 0.40 mg/dL 0.20-1.00 [facility] Comment on above: For patients on eltr ombopag therapy, use of Dimension [place] TBIL is not recommended. Chloride [Moles/Vol] 106 mmol/L 98-107 [facility] Glucose [Mass/Vol] 143 mg/dL 74-106 [facility] Comment on above: Fasting Glucose resu lt greater than or equal to 126 mg/dL suggests DIABETES MELLITUS per A.D.A. criteria. Potassium [Moles/Vol] 3.8 mmol/L 3.5-5.1 [facility] Protein [Mass/Vol] 7.3 g/dL 6.4-8.2 [facility] Sodium [Moles/Vol] 139 mmol/L 136-145 [facility] Laboratory - Chemistry and C hemistry - challengeOrdered By: Kayleigh Singleton on 03-14-2023 ALP [Catalytic activity/Vol] 118 U/L 45-117 [facility] ALT [Catalytic activity/Vol] 94 U/L 16-61 [facility] CO2 [Moles/Vol] 26.0 mmol/L 21.0-32.0 [facility] Globulin (S) [Mass/Vol] 3.6 g/dL 2.2-4.[address] [facility] Urea nitrogen/Creatinine [Mass ratio] 13.7 mg/mg 10-20 [facility] No Panel InformationOrdered By: Kayleigh Singleton on 03-14-2023 Estimated GFR (MDRD) Amer 70 mL/min >60 [facility] Comment on above: GFR Calc Estimated GFR (MDRD) Non-Af Amer 58 mL/min >60 [facility] Comment on above: Non- GFR Calc Serum or plasma albumin wayne urement (mass/volume)Ordered By: Kayleigh Singleton on 03-14-2023 Albumin [Mass/Vol] 3.7 g/dL 3.2-5.0 [facility] Serum or plasma albumin/glob ulin mass ratioOrdered By: Kayleigh Singleton on 03-14-2023 Albumin/Globulin [Mass ratio] 1.0 {ratio} 0.9-2.4 [facility] Serum or plasma calcium wayne urement (mass/volume)Ordered By: Kayleigh Singleton on 03-14-2023 Calcium [Mass/Vol] 9.1 mg/dL 8.5-10.1 [facility] Serum or plasma creatinine m easurement (mass/volume)Ordered By: Kayleigh Singleton on 03-14-2023 Creatinine [Mass/Vol] 1.39 mg/dL 0.70-1.30 [facility] Comment on above: The validity of the calculated GFR & GFRAA in patients over 70 years has not been determined. Clinical correlation is essential. Serum or plasma urea nitroge n measurement (mass/volume)Ordered By: Kayleigh Singleton on 03-14-2023 Urea nitrogen [Mass/Vol] 19 mg/dL 7-18 [facility] Thin prep Papanicolaou smear with manual screeningOrdered By: Kayleigh Singleton on 03-14-2023 Thin prep Papanicolaou smear with manual screening 36 U/L 15-37 [facility] Thin prep Papanicolaou smear with manual screening 7 5-15 [facility] Whole blood hemoglobin A1c/t otal hemoglobin ratio (mass fraction)Ordered By: Kayleigh Singleton on 03-14-2023 HbA1c (Bld) [Mass fraction] 5.9 % 3.8-5.6 [facility] Comment on above: Normal < 5.7 % Predi abetic 5.7 - 6.4 % Diabetic >or= 6.5 % Please note range changes. Absolute lymphocyte countOrd ered By: Kayleigh Singleton on 12-20-2022 Lymphocytes Auto (Unsp spec) [#/Vol] 2.13 10*3/uL 0.83-4.51 [facility] Basophil percentageOrdered B y: Kayleigh Singleton on 12-20-2022 Basophils/100 WBC (Bld) 0.6 % 0-[address] [facility] Bilirubin [Mass/Vol] 0.30 mg/dL 0.20-1.00 [facility] Comment on above: For patients on eltr ombopag therapy, use of Dimension [place] TBIL is not recommended. Chloride [Moles/Vol] 107 mmol/L 98-107 [facility] Cholesterol [Mass/Vol] 201 mg/dL <200 [facility] Comment on above: <200 mg/dL Desirable 200-240 mg/dL Borderline >240 mg/dL High Risk Eosinophils/100 WBC (Bld) 1.4 % 0-5 [facility] Glucose [Mass/Vol] 100 mg/dL 74-106 [facility] Comment on above: Fasting Glucose resu lt from 100 to 125 mg/dL suggests IMPAIRED HOMEOSTASIS per A.D.A. criteria. Neutrophils (Bld) [#/Vol] 5.3 10*3/uL 2.0-7.7 [facility] Neutrophils/100 WBC (Bld) 63.3 % 47-70 [facility] Potassium [Moles/Vol] 3.8 mmol/L 3.5-5.1 [facility] Protein [Mass/Vol] 7.3 g/dL 6.4-8.2 [facility] Sodium [Moles/Vol] 141 mmol/L 136-145 [facility] Triglyceride [Mass/Vol] 117 mg/dL <[address] [facility] Comment on above: The drugs N-Acetylcy steine and Metamizole may falsely depress this assay.Serum Triglycerides Reference Interval Normal <150 mg/dL Borderline high 150 - 199 mg/dL High 200 - 499 mg/dL Very High > or = 500 mg/dL WBC (Bld) [#/Vol] 8.4 10*3/uL 4.4-11.0 [facility] Blood erythrocytes count (nu mber/volume)Ordered By: Kayleigh Singleton on 12-20-2022 RBC (Bld) [#/Vol] 5.08 10*6/uL 4.6-6.2 [facility] Blood hemoglobin measurement (mass/volume)Ordered By: Kayleigh Singleton on 12-20-2022 Hemoglobin (Bld) [Mass/Vol] 15.1 g/dL 13.0-16.5 [facility] Blood lymphocytes/100 leukoc ytesOrdered By: [facility] on 12-20-2022 Lymphocytes/100 WBC (Bld) 25.2 % 19-41 [facility] Blood monocytes/100 leukocyt esOrdered By: [facility] on 12-20-2022 Monocytes/100 WBC (Bld) 9.1 % 0-[address] [facility] Blood platelet mean volumeOr dered By: Kayleigh Singleton on 12-20-2022 Platelet mean volume (Bld) [Entitic vol] 10.0 fL 6.2-12.0 [facility] Determination of erythrocyte mean corpuscular volume (MCV)Ordered By: Kayleigh Singleton on 12-20-2022 MCV (RBC) [Entitic vol] 89.2 fL 80-[address] [facility] Hematocrit Auto (Bld) [Volum e fraction]Ordered By: Kayleigh Singleton on 12-20-2022 Hematocrit (Bld) [Volume fraction] 45.3 % 40-54 [facility] Laboratory - Chemistry and C hemistry - challengeOrdered By: Kayleigh Singleton on 12-20-2022 ALP [Catalytic activity/Vol] 103 U/L 45-117 [facility] ALT [Catalytic activity/Vol] 182 U/L 16-61 [facility] CO2 [Moles/Vol] 25.0 mmol/L 21.0-32.0 [facility] Globulin (S) [Mass/Vol] 3.7 g/dL 2.2-4.[address] [facility] Urea nitrogen/Creatinine [Mass ratio] 15.8 mg/mg 10-20 [facility] Laboratory - Hematology and Cell countsOrdered By: Kayleigh Singleton on 12-20-2022 Erythrocyte distribution width (RBC) [Entitic vol] 45.2 fL 35.1-43.9 [facility] Erythrocyte distribution width (RBC) [Ratio] 13.8 % 11.6-14.6 [facility] Immature granulocytes/100 WBC (Bld) 0.400 % 0.0-0.9 [facility] Comment on above: IG% - Immature Granu locytes (promyelocytes, myelocytes and metamyelocytes) > 1% indicates that a LEFT SHIFT is Present. MCH (RBC) [Entitic mass] 29.7 pg 27.0-32.0 [facility] Nucleated RBC/100 WBC (Bld) [Ratio] 0 % 0-5 [facility] MCHC Auto (RBC) [Mass/Vol]Or dered By: Kayleigh Singleton on 12-20-2022 MCHC (RBC) [Mass/Vol] 33.3 g/dL 32-36 [facility] No Panel InformationOrdered By: Kayleigh Singleton on 12-20-2022 Estimated GFR (MDRD) Amer 74 mL/min >60 [facility] Comment on above: GFR Calc Estimated GFR (MDRD) Non-Af Amer 61 mL/min >60 [facility] Comment on above: Non- GFR Calc Platelets bldOrdered By: Johny Singleton on 12-20-2022 Platelets (Bld) [#/Vol] 234 10*3/uL 150-450 [facility] Serum or plasma albumin wayne urement (mass/volume)Ordered By: Kayleigh Singleton on 12-20-2022 Albumin [Mass/Vol] 3.6 g/dL 3.2-5.0 [facility] Serum or plasma albumin/glob ulin mass ratioOrdered By: Kayleigh Singleton on 12-20-2022 Albumin/Globulin [Mass ratio] 1.0 {ratio} 0.9-2.4 [facility] Serum or plasma calcium wayne urement (mass/volume)Ordered By: Kayleigh Singleton on 12-20-2022 Calcium [Mass/Vol] 9.5 mg/dL 8.5-10.1 [facility] Serum or plasma cholesterol in HDL measurement (mass/volume)Ordered By: Kayleigh Singleton on 12-20-2022 Cholesterol in HDL [Mass/Vol] 49 mg/dL >40 [facility] Comment on above: The drugs N-Acetylcy steine and Metamizole may falsely depress this assay. Reference Range HDL <40 mg/dL Low HDL Cholesterol HDL >or= 60 mg/dL High HDL Cholesterol Serum or plasma cholesterol in VLDL measurement (mass/volume)Ordered By: Kayleigh Singleton on 12-20-2022 Cholesterol in VLDL [Mass/Vol] 23 mg/dL 5-40 [facility] Serum or plasma creatinine m easurement (mass/volume)Ordered By: Kayleigh Singleton on 12-20-2022 Creatinine [Mass/Vol] 1.33 mg/dL 0.70-1.30 [facility] Comment on above: The validity of the calculated GFR & GFRAA in patients over 70 years has not been determined. Clinical correlation is essential. Serum or plasma low density lipoprotein (LDL) cholesterol measurement (mass/volume)Ordered By: Kayleigh Singleton on 12-20-2022 Cholesterol in LDL [Mass/Vol] 129 mg/dL 0-130 [facility] Serum or plasma urea nitroge n measurement (mass/volume)Ordered By: Kayleigh Singleton on 12-20-2022 Urea nitrogen [Mass/Vol] 21 mg/dL 7-18 [facility] Thin prep Papanicolaou smear with manual screeningOrdered By: Kayleigh Singleton on 12-20-2022 Thin prep Papanicolaou smear with manual screening 61 U/L 15-37 [facility] Thin prep Papanicolaou smear with manual screening 9 5-15 [facility] Whole blood hemoglobin A1c/t otal hemoglobin ratio (mass fraction)Ordered By: Kayleigh Singleton on 12-20-2022 HbA1c (Bld) [Mass fraction] 6.9 % 3.8-5.6 [facility] Comment on above: Normal < 5.7 % Predi abetic 5.7 - 6.4 % Diabetic >or= 6.5 % Please note range changes. Anaerobic cultureOrdered By: Dr. Erickson on 11-28-2022 Bacteria identified Anaer cx Nom (Unsp spec) No growth in 5 days. [facility] Bacterial body fluid culture Ordered By: Dr. Erickson on 11-26-2022 Bacteria identified Cx Nom (Body fld) Culture exhibits no growth. [facility] * Body fluid crystals type b y light microscopyOrdered By: Dr. Erickson on 11-23-2022 Crystals LM Nom (Body fld) NO CRYSTALS SEEN [facility] Comment on above: CRYSTAL RESULT IS PRELIMINARY. SEE PATH REVIEW FOR FINAL REPORT. Anaerobic cultureOrdered By: Seymour Erickson on 11-23-2022 Bacteria identified Anaer cx Nom (Unsp spec) No growth in 5 days. [facility] Bacterial body fluid culture Ordered By: Seymour Erickson on 11-23-2022 Bacteria identified Cx Nom (Body fld) Culture exhibits no growth. [facility] Blood lymphocytes/100 leukoc ytesOrdered By: Dr. Erickson on 11-23-2022 Lymphocytes/100 WBC (Bld) 23 % [facility] Color of Synovial fluidOrder ed By: Dr. Erickson on 11-23-2022 Color (Syn fld) Bloody Pale Yellow [facility] Determination of appearance of synovial fluidOrdered By: Dr. Erickson on 11-23-2022 Appearance (Syn fld) Cloudy CLEAR [facility] Gram stain for investigation of transfusion reactionOrdered By: Seymour Erickson on 11-23-2022 Microscopic observation Gram stain Nom (Unsp spec) [facility] Gram stain for investigation of transfusion reactionOrdered By: Dr. Erickson on 11-23-2022 Microscopic observation Gram stain Nom (Unsp spec) [facility] No Panel InformationOrdered By: Dr. Erickson on 11-23-2022 Synovial Fluid Mononuclear WBCs 0.165 10^3/ul [facility] Synovial Fluid Mononuclear WBCs % 69.3 % [facility] Synovial Fluid Polynuclear WBCs 0.073 10^3/uL [facility] Synovial Fluid Polynuclear WBCs % 30.7 % [facility] Synovial Fluid Total Cells Counted 0.2440 10^3/uL 0.000-0.000 [facility] Comment on above: This is the Total Nu mber of Nucleated Cell Types in the Body Fluid. Qualitative synovial fluid v iscosityOrdered By: Dr. Erickson on 11-23-2022 Viscosity Ql (Syn fld) Mod. Viscous HIGH [facility] Review by pathologistOrdered By: Dr. Erickson on 11-23-2022 Pathologist review Andre (Unsp spec) [Interp] Reviewed [facility] Comment on above: Previous reported re sult: May follow Edited by: RGOARLETTE on 11/27/22:1240Negative for malignant cells and crystals.Daniel Peck M.D. 11/27/22 AMENDED REPORT 11/27/22 1240 PATH COM/SYFL previously reported as: May follow Specimen source identificati on of body fluidOrdered By: Dr. Erickson on 11-23-2022 Specimen source Nom (Body fld) SYNOVIAL [facility] Specimen source Nom (Body fld) [facility] Synovial fluid erythrocytes count (number/volume)Ordered By: Dr. Erickson on 11-23-2022 RBC (Syn fld) [#/Vol] 0.036 10^6/uL 0-0 [facility] Synovial fluid glucose measu rement (mass/volume)Ordered By: Dr. Erickson on 11-23-2022 Glucose (Syn fld) [Mass/Vol] 129 mg/dL . [facility] Comment on above: : BODY FLUID [...] 76 - 288 : : : : Oklee W, Niall V. Reference Intervals for Adults and Children 2007. Ninth edition (V9.1) [facility]; [place]: February 2009. Synovial fluid leukocytes co unt (number/volume)Ordered By: Dr. Erickson on 11-23-2022 WBC (Syn fld) [#/Vol] 0.2380 10^3/uL 0.000-0.00 2 [facility] Synovial fluid monocyte perc entageOrdered By: Dr. Erickson on 11-23-2022 Monocytes/100 WBC (Syn fld) 3 % [facility] Synovial fluid neutrophil pe rcentageOrdered By: Dr. Erickson on 11-23-2022 Neutrophils/100 WBC (Syn fld) 28 % 0-25 [facility] Synovial fluid other cells/1 00 leukocytes identificationOrdered By: Dr. Erickson on 11-23-2022 Other cells/100 WBC Nom (Syn fld) 46 % [facility] Synovial fluid volume measur ementOrdered By: Dr. Erickson on 11-23-2022 Specimen volume (Syn fld) 3.0 ml 0.1-3.5 [facility] CNOVon 07-17-2022 CNOV Office Visit (UCTR ) GIOVANNI JOHNSON ([id number]) 1975 M Date Time Provider Department 07/17/22 10:30 AM [facility] During your visit today, we recorded the following information about you: Temperature Pulse Respiration Blood pressure 97.9 degrees 98/minute 16/minute 132/86 Weight 132 kg Anya Mancera APRN.CNP 07/17/2022 10:45 AM Signed Subjective The history is provided by the patient. No education trainer was used. HPI Giovanni Johnson is a [...] have confirmed and edited as necessary, the [facility] Review of Systems Constitutional: Positive for [...] in 12-24 hours with results, available on [facility] - COVID WITH FLUA+B, ROUTINE Diagnosis and treatment plan were discussed and questions were answered to the patient's satisfaction. Pt acknowledged understanding of concepts and follow up plan. Specific signs and symptoms that would indicate the need for higher level of care were discussed in detail warranting prompt ER evaluation. Anya Mancera APRN.KE Mancera APRN.KE 07/17/2022 10:39 AM Signed Strep is negative [...] if no (more content not included)... Normal [facility] STREP A MOLECULAR (POC)on Procedural Control Valid [facility] Strep A (POCT) Negative Negative [facility] 06-04-2022 [facility] GIOVANNI JOHNSON ([id number]) 1975 M Date Time Provider Department 06/04/22 [facility] During your visit today, we recorded the [...] by LORENE MORALES MA on 06/04/22 Normal [facility] XR CHEST 2V FRONTAL/LATon XR CHEST [...] relevant examinations available for comparison within the [facility]. RESULT: Lines, tubes, and [...] indicate chronic changes versus subtle interstitial pneumonia. Scrum Product Owner: FAVIO Transcribe Date/Time: Jun 04 2022 10:18A Dictated by : CAREN CACEERS MD This examination was interpreted and the report reviewed and electronically signed by: CAREN CACERES MD on Jun 04 2022 10:19AM EST [id number] Normal [facility] XR Chest PA and Lateralon IMPRESSION: No definite acute radiographic abnormality. Eventration left hemidiaphragm with vague pleural-parenchymal stranding could indicate chronic changes versus subtle interstitial pneumonia. Scrum Product Owner: PSCB Transcribe Date/Time: Jun 04 2022 10:18A [...] relevant examinations available for comparison within the [facility]. RESULT: Lines, tubes, and [...] destructive process noted. DIVISION OF RADIOLOGY Provider, [facility] - 06/04/2022 * * *Final Report* * [...] relevant examinations available for comparison within the [facility]. RESULT: Lines, tubes, and [...] indicate chronic changes versus subtle interstitial pneumonia. Scrum Product Owner: PSCB Transcribe Date/Time: Jun 04 2022 10:18A Dictated by : CAREN CACERES MD This examination was interpreted and the report reviewed and electronically signed by: CAREN CACERES MD on Jun 04 2022 10:19AM EST [facility] Radiology Study observation (narrative) [facility] XR Chest PA and LateralOrder ed By: Ccf Provider on 06-04-2022 [facility] CNOVon 06-03-2022 CNOV Office Visit (UCWSTR ) GIOVANNI JOHNSON ([id number]) 1975 M Date Time Provider Department 06/03/22 9:15 AM [facility] During your visit today, we recorded the following information about you: Temperature Pulse Respiration Blood pressure 97.2 degrees 103/minute 20/minute 122/84 Weight 133.3 kg Lillian Bermudez APRN.METAL FINISHER 06/03/2022 9:15 AM Signed CC: Patient presents [...] that time. (more content not included)... Normal [facility] EMERGENCY REPORTon 8 EMERGENCY REPORT [facility] EM[facility] ROOM REPORT NAME ACCOUNT SEX AGE ADMIT DISCHARGE PT MED. RECORD# NUMBER DATE DATE TYPE GIOVANNI JOHNSON [id number] Joselin 42 11/12/17 11/12/17 [id number] ROOM: ER DATE OF : 1975 DICTATING [...] abnormality on physical examination noted. Neuro: Normal tyugca-ue-glfp, lwzm-io-mvve, ambulatory, alert and oriented x3. Cranial nerves [...] Forbes DO TD: 11/13/17 00:31 JOB #: [id number] Transcribed by: daysi Electronically signed by: IRVING FORBES DO 01/03/18 09:56 Page 2 of 2 GIOVANNI JOHNSON Emergency Room Report Normal [facility] RIBS RT UNILAT W/CHEST EXPIR ATIONon 04-03-2018 RIBS RT UNILAT W/CHEST EXPIRATION [place] [address] Patient: GIOVANNI JOHNSON Phone#: : 1975 Age: 42 Gender: M Pt. Type: ER Account: [id number] Location: [facility] Ordering: IRVING FORBES Exam Date: 11/12/2017/11:12 Family Phys: NO DOCTOR Charge Code: [id number] Physician: [facility] Order #: [id number] DLP Dose#: PROCEDURE: X-RAY RIBS RT UNILAT [...] Kaba MD on 11/12/2017 at 11:38 Normal [facility] URINALYSISon 11-12-2017 Amorphous NONE Normal [facility] Comment on above: Performed By: #### 2 [id number] ####[facility],[address] [place] [address] Bilirubin (total) Negative Normal NORMAL: NEGATIVE [facility] Comment on above: Performed By: #### 2 69947 ####[facility],[address] [place] [address] Blood 25 Abnormal NORMAL: NEGATIVE [facility] Comment on above: Performed By: #### 2 28627 ####[facility],[address] [place] [address] Epi Cells NONE Normal [facility] Comment on above: Performed By: #### 2 98069 ####[facility],[address] [place] [address] Erythrocytes (RBC) RARE Normal 0-3/hpf [facility] Comment on above: Performed By: #### 2 81637 ####[facility],[address] [place], [place] [id number] Glucose mass conc NORM Normal NORMAL: NORMAL [facility] Comment on above: Performed By: #### 2 25013 ####[facility],[address] [place], [place] [id number] Ketone Negative Normal NORMAL: NEGATIVE [facility] Comment on above: Performed By: #### 2 15179 ####[facility],[address] [place] [address] Microscopic SEE BELOW Normal [facility] Comment on above: Result Comment: MICR OSCOPIC Performed By: #### 2 18751 ####[facility],[address] [place] [address] Mucous NONE Normal [facility] Comment on above: Performed By: #### 2 21453 ####[facility],[address] [place] [address] pH of blood 6.5 [pH] Normal NORMAL: 5.0-8.0 [facility] Comment on above: Performed By: #### 2 49644 ####[facility],[address] [place], [place] [id number] Protein Negative Normal NORMAL: NEGATIVE [facility] Comment on above: Performed By: #### 2 76999 ####[facility],[address] [place], [place] [id number] Sp [place] 1.005 Low NORMAL: 1.010-1.030 [facility] Comment on above: Performed By: #### 2 00293 ####[facility],[address] [place], [place] [id number] Specimen Type Void Normal [facility] Comment on above: Performed By: #### 2 93547 ####[facility],[address] [place] [address],[facility] [address] URINALYSIS Normal [facility] Comment on above: Result Comment: URIN ALYSIS Performed By: #### 2 59591 ####[facility],[address] [place] [address],[facility] [address] Urine, bacteria in sediment NONE Normal [facility] Comment on above: Performed By: #### 2 73972 ####[facility],[address] [place] [address],[facility] [address] Urine, casts in sediment NONE Normal [facility] Comment on above: Performed By: #### 2 94226 ####[facility],[address] [place] [address],[facility] [address] Urine, clarity clear Normal NORMAL: CLEAR [facility] Comment on above: Performed By: #### 2 14355 ####[facility],[address] [place] [address],[facility] [address] Urine, color p.yel Normal NORMAL: YELLOW [facility] Comment on above: Performed By: #### 2 54528 ####[facility],[address] [place] [address],[facility] [address] Urine, crystals in sediment NONE Normal [facility] Comment on above: Performed By: #### 2 63038 ####[facility],[address] [place] [address],[facility] [address] Urine, nitrite presence Negative Normal NORM AL: NEGATIVE [facility] Comment on above: Performed By: #### 2 57847 ####[facility],[address] [place] [address],[facility] [address] Urine, yeast presence in sediment NONE Normal [facility] Comment on above: Performed By: #### 2 37759 ####[facility],[address] [place] [address],[facility] [address] Urobilinog NORM Normal NORMAL: NORMAL [facility] Comment on above: Performed By: #### 2 60340 ####[facility],[address] [place] [address] WBC (Leukocytes) Negative Normal NORMAL: NEGATIVE [facility] Comment on above: Performed By: #### 2 39269 ####[facility],[address] [place] [address] WBC (Leukocytes) RARE Normal 0-5/hpf [facility] Comment on above: Performed By: #### 2 15637 ####[facility],[address] [place] [address] Vital Signs Date Time Vital Sign Value Performing Clinician Facility 04-15-2025 13:41-0400 Body height 190.[address] Kayleigh Singleton MD Work Phone: [phone] [place] [address] 04-15-2025 13:41-0400 Body mass index (BMI) [Ratio] 37.5 kg/m2 Dr. Kayleigh Singleton MD Work Phone: [phone])[phone] [place] [address] 04-15-2025 13:41-0400 Body temperature 98.1 [degF] Dr. Kayleigh Singleton MD Work Phone: 2(796)[phone] [place] [address] 04-15-2025 13:41-0400 Body weight 136.[address] Kayleigh Singleton MD Work Phone: [facility] 04-15-2025 13:41-0400 Diastolic blood pressure 86 mm[Hg] Dr. Kayleigh Singleton MD Work Phone: [facility] 04-15-2025 13:41-0400 Heart rate 97 /min Dr. Kayleigh Singleton MD Work Phone: [facility] 04-15-2025 13:41-0400 Respiratory rate 16 /min Dr. Kayleigh Singleton MD Work Phone: [phone])[phone] [place] [address] 04-15-2025 13:41-0400 SaO2% (BldA) [Mass fraction] 96 % Dr. Kayleigh Singleton MD Work Phone: [facility] 04-15-2025 13:41-0400 Systolic blood pressure 122 mm[Hg] Dr. Kayleigh Singleton MD Work Phone: [facility] 02-18-2025 14:29-0400 Body height 190.5 cm Zoltan Rocha MD Work Phone: [facility] 02-18-2025 14:29-0400 Body mass index (BMI) [Ratio] 36.4 kg/m2 Zoltan Rocha MD Work Phone: [facility] 02-18-2025 14:29-0400 Body weight 132.09 kg Zoltan Rocha MD Work Phone: [facility] 02-18-2025 14:29-0400 Diastolic blood pressure 62 mm[Hg] Zoltan Rocha MD Work Phone: [facility] 02-18-2025 14:29-0400 Heart rate 80 /min Zoltan Rocha MD Work Phone: [facility] 02-18-2025 14:29-0400 Respiratory rate 16 /min Zoltan Rocha MD Work Phone: [facility] 02-18-2025 14:29-0400 SaO2% (BldA) [Mass fraction] 97 % Zoltan Rocha MD Work Phone: [facility] 02-18-2025 14:29-0400 Systolic blood pressure 99 mm[Hg] Zoltan Rocha MD Work Phone: [facility] 02-16-2025 09:13-0400 Body height 190.[address] Kayleigh Singleton MD Work Phone: [facility] 02-16-2025 09:13-0400 Body mass index (BMI) [Ratio] 36.3 kg/m2 Dr. Kayleigh Singleton MD Work Phone: [facility] 02-16-2025 09:13-0400 Body weight 131.[address] Kayleigh Singleton MD Work Phone: [facility] 02-16-2025 09:13-0400 Diastolic blood pressure 70 mm[Hg] Dr. Kayleigh Singleton MD Work Phone: [facility] 02-16-2025 09:13-0400 Heart rate 80 /min Dr. Kayleigh Singleton MD Work Phone: [facility] 02-16-2025 09:13-0400 Respiratory rate 18 /min Dr. Kayleigh Singleton MD Work Phone: [facility] 02-16-2025 09:13-0400 Systolic blood pressure 103 mm[Hg] Dr. Kayleigh Singleton MD Work Phone: [facility] 01-22-2025 14:01-0400 Body height 190.[address] Kayleigh Singleton MD Work Phone: [facility] 01-22-2025 14:01-0400 Body mass index (BMI) [Ratio] 36.5 kg/m2 Dr. Kayleigh Singleton MD Work Phone: [facility] 01-22-2025 14:01-0400 Body weight 132.[address] Kayleigh Singleton MD Work Phone: [facility] 01-22-2025 14:01-0400 Diastolic blood pressure 78 mm[Hg] Dr. Kayleigh Singleton MD Work Phone: [facility] 01-22-2025 14:01-0400 Heart rate 98 /min Dr. Kayleigh Singleton MD Work Phone: [facility] 01-22-2025 14:01-0400 SaO2% (BldA) [Mass fraction] 95 % Dr. Kayleigh Singleton MD Work Phone: [facility] 01-22-2025 14:01-0400 Systolic blood pressure 117 mm[Hg] Dr. Kayleigh Singleton MD Work Phone: [facility] 01-08-2025 13:37-0400 Body height 190.[address] Kayleigh Singleton MD Work Phone: [facility] 01-08-2025 13:37-0400 Body mass index (BMI) [Ratio] 37.2 kg/m2 Dr. Kayleigh Singleton MD Work Phone: [facility] 01-08-2025 13:37-0400 Body temperature 96.6 [degF] Dr. Kayleigh Singleton MD Work Phone: [facility] 01-08-2025 13:37-0400 Body weight 135.[address] Kayleigh Signleton MD Work Phone: [facility] 01-08-2025 13:37-0400 Diastolic blood pressure 78 mm[Hg] Dr. Kayleigh Singleton MD Work Phone: [facility] 01-08-2025 13:37-0400 Heart rate 96 /min Dr. Kayleigh Singleton MD Work Phone: [facility] 01-08-2025 13:37-0400 Respiratory rate 16 /min Dr. Kayleigh Singleton MD Work Phone: [facility] 01-08-2025 13:37-0400 SaO2% (BldA) [Mass fraction] 95 % Dr. Kayleigh Singleton MD Work Phone: [facility] 01-08-2025 13:37-0400 Systolic blood pressure 132 mm[Hg] Dr. Kayleigh Singleton MD Work Phone: [facility] 01-05-2025 14:43-0400 Body height 190.5 cm Zoltan Rocha MD Work Phone: [facility] 01-05-2025 14:43-0400 Body mass index (BMI) [Ratio] 37.5 kg/m2 Zoltan Rocha MD Work Phone: [facility] 01-05-2025 14:43-0400 Body weight 136.08 kg Zoltan Rocha MD Work Phone: [facility] 01-05-2025 14:43-0400 Diastolic blood pressure 79 mm[Hg] Zoltan Rocha MD Work Phone: [facility] 01-05-2025 14:43-0400 Heart rate 92 /min Zoltan Rocha MD Work Phone: [facility] 01-05-2025 14:43-0400 SaO2% (BldA) [Mass fraction] 94 % Zoltan Rocha MD Work Phone: [facility] 01-05-2025 14:43-0400 Systolic blood pressure 137 mm[Hg] Zoltan Rocha MD Work Phone: [facility] 11-23-2024 10:31-0400 Body height 190.5 cm Zoltan Rocha MD Work Phone: [facility] 11-23-2024 10:31-0400 Body mass index (BMI) [Ratio] 38.1 kg/m2 Zoltan Rocha MD Work Phone: [facility] 11-23-2024 10:31-0400 Body weight 138.26 kg Zoltan Rocha MD Work Phone: [facility] 11-23-2024 10:31-0400 Diastolic blood pressure 76 mm[Hg] Zoltan Rocha MD Work Phone: [facility] 11-23-2024 10:31-0400 Heart rate 81 /min Zoltan Rocha MD Work Phone: [facility] 11-23-2024 10:31-0400 Respiratory rate 16 /min Zoltan Rocha MD Work Phone: [facility] 11-23-2024 10:31-0400 SaO2% (BldA) [Mass fraction] 97 % Zoltan Rocha MD Work Phone: [facility] 11-23-2024 10:31-0400 Systolic blood pressure 125 mm[Hg] Zoltan Rocha MD Work Phone: [facility] 10-05-2024 08:46-0500 Body height 190.[address] Kayleigh Singleton MD Work Phone: [facility] 10-05-2024 08:46-0500 Body mass index (BMI) [Ratio] 37.8 kg/m2 Dr. Kayleigh Singleton MD Work Phone: [facility] 10-05-2024 08:46-0500 Body temperature 96.4 [degF] Dr. Kayleigh Singleton MD Work Phone: [facility] 10-05-2024 08:46-0500 Body weight 137.[address] Kayleigh Singleton MD Work Phone: [facility] 10-05-2024 08:46-0500 Diastolic blood pressure 78 mm[Hg] Dr. Kayleigh Singleton MD Work Phone: [facility] 10-05-2024 08:46-0500 Heart rate 78 /min Dr. Kayleigh Singleton MD Work Phone: [facility] 10-05-2024 08:46-0500 Respiratory rate 16 /min Dr. Kayleigh Singleton MD Work Phone: [facility] 10-05-2024 08:46-0500 SaO2% (BldA) [Mass fraction] 98 % Dr. Kayleigh Singleton MD Work Phone: [facility] 10-05-2024 08:46-0500 Systolic blood pressure 142 mm[Hg] Dr. Kayleigh Singleton MD Work Phone: [facility] 09-24-2024 11:12-0500 Body height 190.5 cm Zoltan Rocha MD Work Phone: [facility] 09-24-2024 11:12-0500 Body mass index (BMI) [Ratio] 37.72 kg/m2 Zoltan Rocha MD Work Phone: [facility] 09-24-2024 11:12-0500 Body weight 136.9 kg Zoltan Rocha MD Work Phone: [facility] 09-24-2024 11:12-0500 Diastolic blood pressure 82 mm[Hg] Zoltan Rocha MD Work Phone: [facility] 09-24-2024 11:12-0500 Heart rate 79 /min Zoltan Rocha MD Work Phone: [facility] 09-24-2024 11:12-0500 Respiratory rate 16 /min Zoltan Rocha MD Work Phone: [facility] 09-24-2024 11:12-0500 SaO2% (BldA) [Mass fraction] 96 % Zoltan Rocha MD Work Phone: [facility] 09-24-2024 11:12-0500 Systolic blood pressure 132 mm[Hg] Zoltan Rocha MD Work Phone: [facility] 07-06-2024 09:05-0500 Body mass index (BMI) [Ratio] 37.3 kg/m2 Dr. Kayleigh Singleton MD Work Phone: [facility] 07-06-2024 09:05-0500 Body temperature 97.6 [degF] Dr. Kayleigh Singleton MD Work Phone: [facility] 07-06-2024 09:05-0500 Body weight 135.[address] Kayleigh Singleton MD Work Phone: [facility] 07-06-2024 09:05-0500 Diastolic blood pressure 84 mm[Hg] Dr. Kayleigh Singleton MD Work Phone: [facility] 07-06-2024 09:05-0500 Heart rate 84 /min Dr. Kayleigh Singleton MD Work Phone: [facility] 07-06-2024 09:05-0500 Respiratory rate 16 /min Dr. Kayleigh Singleton MD Work Phone: [facility] 07-06-2024 09:05-0500 SaO2% (BldA) [Mass fraction] 95 % Dr. Kayleigh Singleton MD Work Phone: [facility] 07-06-2024 09:05-0500 Systolic blood pressure 120 mm[Hg] Dr. Kayleigh Singleton MD Work Phone: [facility] 09-25-2023 15:00-0500 Body height 190.[address] Kayleigh Singleton Work Phone: [facility] 09-25-2023 15:00-0500 Body mass index (BMI) [Ratio] 36.8 kg/m2 Dr. Kayleigh Singleton Work Phone: [facility] 09-25-2023 15:00-0500 Body temperature 97.6 [degF] Dr. Kayleigh Singleton Work Phone: [facility] 09-25-2023 15:00-0500 Body weight 133.[address] Kayleigh Singleton Work Phone: [facility] 09-25-2023 15:00-0500 Diastolic blood pressure 68 mm[Hg] Dr. Kayleigh Singleton Work Phone: [facility] 09-25-2023 15:00-0500 Heart rate 100 /min Dr. Kayleigh Singleton Work Phone: [facility] 09-25-2023 15:00-0500 Respiratory rate 16 /min Dr. Kayleigh Singleton Work Phone: [facility] 09-25-2023 15:00-0500 SaO2% (BldA) [Mass fraction] 98 % Dr. Kayleigh Singleton Work Phone: [facility] 09-25-2023 15:00-0500 Systolic blood pressure 116 mm[Hg] Dr. Kayleigh Singleton Work Phone: [facility] 09-17-2023 14:29-0500 Body mass index (BMI) [Ratio] 36.5 kg/m2 Dr. Kayleigh Singleton Work Phone: [facility] 09-17-2023 14:29-0500 Body temperature 97.8 [degF] Dr. Kayleigh Singleton Work Phone: [facility] 09-17-2023 14:29-0500 Body weight 132.[address] Kayleigh Singleton Work Phone: [facility] 09-17-2023 14:29-0500 Diastolic blood pressure 82 mm[Hg] Dr. Kayleigh Singleton Work Phone: [facility] 09-17-2023 14:29-0500 Heart rate 108 /min Dr. Kayleigh Singleton Work Phone: [facility] 09-17-2023 14:29-0500 Respiratory rate 16 /min Dr. Kayleigh Singleton Work Phone: [facility] 09-17-2023 14:29-0500 SaO2% (BldA) [Mass fraction] 98 % Dr. Kayleigh Singleton Work Phone: [facility] 09-17-2023 14:29-0500 Systolic blood pressure 126 mm[Hg] Dr. Kayleigh Singleton Work Phone: [facility] 08-13-2023 13:02-0500 Body mass index (BMI) [Ratio] 36.9 kg/m2 Dr. Kayleigh Singleton Work Phone: [facility] 08-13-2023 13:02-0500 Body weight 134.[address] Kayleigh Singleton Work Phone: [facility] 07-08-2023 09:01-0500 Body mass index (BMI) [Ratio] 35.6 kg/m2 Dr. Kayleigh Singleton Work Phone: [facility] 07-08-2023 09:01-0500 Body temperature 96.2 [degF] Dr. Kayleigh Singleton Work Phone: [facility] 07-08-2023 09:01-0500 Diastolic blood pressure 89 mm[Hg] Dr. Kayleigh Singleton Work Phone: [facility] 07-08-2023 09:01-0500 Heart rate 86 /min Dr. Kayleigh Singleton Work Phone: [facility] 07-08-2023 09:01-0500 Respiratory rate 18 /min Dr. Kayleigh Singleton Work Phone: [facility] 07-08-2023 09:01-0500 Systolic blood pressure 131 mm[Hg] Dr. Kayleigh Singleton Work Phone: [facility] 06-19-2023 15:56-0500 Body mass index (BMI) [Ratio] 35.5 kg/m2 Dr. Kayleigh Singleton Work Phone: [facility] 06-19-2023 15:56-0500 Body temperature 97 [degF] Dr. Kayleigh Singleton Work Phone: [facility] 06-19-2023 15:56-0500 Body weight 128.[address] Kayleigh Singleton Work Phone: [facility] 06-19-2023 15:56-0500 Diastolic blood pressure 86 mm[Hg] Dr. Kayleigh Singleton Work Phone: [facility] 06-19-2023 15:56-0500 Heart rate 111 /min Dr. Kayleigh Singleton Work Phone: [facility] 06-19-2023 15:56-0500 Respiratory rate 16 /min Dr. Kayleigh Singleton Work Phone: [facility] 06-19-2023 15:56-0500 SaO2% (BldA) [Mass fraction] 94 % Dr. Kayleigh Singleton Work Phone: [facility] 06-19-2023 15:56-0500 Systolic blood pressure 124 mm[Hg] Dr. Kayleigh Singleton Work Phone: [facility] 06-12-2023 00:55-0400 Body weight 129.[address] Kayleigh Singleton Work Phone: [facility] 06-10-2023 09:18-0400 Body mass index (BMI) [Ratio] 35.6 kg/m2 Dr. Kayleigh Singleton Work Phone: [facility] 06-10-2023 09:18-0400 Body temperature 97 [degF] Dr. Kayleigh Singleton Work Phone: [facility] 06-10-2023 09:18-0400 Diastolic blood pressure 87 mm[Hg] Dr. Kayleigh Singleton Work Phone: [facility] 06-10-2023 09:18-0400 Heart rate 85 /min Dr. Kayleigh Singleton Work Phone: [facility] 06-10-2023 09:18-0400 Respiratory rate 16 /min Dr. Kayleigh Singleton Work Phone: [facility] 06-10-2023 09:18-0400 Systolic blood pressure 134 mm[Hg] Dr. Kayleigh Singleton Work Phone: [facility] 06-03-2023 08:37-0400 Body height 190.[address] Kayleigh Singleton Work Phone: [facility] 06-03-2023 08:37-0400 Body mass index (BMI) [Ratio] 35.6 kg/m2 Dr. Kayleigh Singleton Work Phone: [facility] 06-03-2023 08:37-0400 Body temperature 96.9 [degF] Dr. Kayleigh Singleton Work Phone: [facility] 06-03-2023 08:37-0400 Body weight 129.[address] Kayleigh Singleton Work Phone: [facility] 06-03-2023 08:37-0400 Diastolic blood pressure 83 mm[Hg] Dr. Kayleigh Singleton Work Phone: [facility] 06-03-2023 08:37-0400 Heart rate 87 /min Dr. Kayleigh Singleton Work Phone: [facility] 06-03-2023 08:37-0400 Respiratory rate 16 /min Dr. Kayleigh Singleton Work Phone: [facility] 06-03-2023 08:37-0400 Systolic blood pressure 132 mm[Hg] Dr. Kayleigh Singleton Work Phone: [facility] 05-08-2023 13:51-0400 Body temperature 96.7 [degF] Dr. Kayleigh Singleton Work Phone: [facility] 05-08-2023 13:51-0400 Diastolic blood pressure 67 mm[Hg] Dr. Kayleigh Singleton Work Phone: [facility] 05-08-2023 13:51-0400 Heart rate 73 /min Dr. Kayleigh Singleton Work Phone: [facility] 05-08-2023 13:51-0400 Respiratory rate 14 /min Dr. Kayleigh Singleton Work Phone: [facility] 05-08-2023 13:51-0400 SaO2% (BldA) [Mass fraction] 97 % Dr. Kayleigh Singletno Work Phone: [facility] 05-08-2023 13:51-0400 Systolic blood pressure 108 mm[Hg] Dr. Kayleigh Singleton Work Phone: [facility] 05-08-2023 08:06-0400 Body mass index (BMI) [Ratio] 34.9 kg/m2 Dr. Kayleigh Singleton Work Phone: [facility] 05-08-2023 08:06-0400 Body weight 126.[address] Kayleigh Singleton Work Phone: [facility] 04-03-2023 15:07-0400 Diastolic Blood Pressure Non-Invasive 88 1 REMI MCLEAN MD [facility] 04-03-2023 15:07-0400 Heart rate 89 /min REMI MCLEAN MD [facility] 04-03-2023 15:07-0400 Respiratory rate 22 /min REMI MCLEAN MD [facility] 04-03-2023 15:07-0400 Systolic Blood Pressure Non-Invasive 128 1 REMI MCLEAN MD [facility] 04-03-2023 13:25-0400 Body height 190.5 cm REMI MCLEAN MD [facility] 04-03-2023 13:25-0400 Body temperature 98.96 [degF] REMI MCLEAN MD [facility] 04-03-2023 13:25-0400 Body weight 127.3 kg REMI MCLEAN MD [facility] 04-03-2023 13:25-0400 Diastolic Blood Pressure Non-Invasive 92 1 REMI MCLEAN MD [facility] 04-03-2023 13:25-0400 Heart rate 94 /min REMI MCLEAN MD [facility] 04-03-2023 13:25-0400 Respiratory rate 24 /min REMI MCLEAN MD [facility] 04-03-2023 13:25-0400 Systolic Blood Pressure Non-Invasive 138 1 REMI MCLEAN MD [facility] 03-14-2023 16:21-0400 Body height 190.[address] Kayleigh Singleton Work Phone: [facility] 03-14-2023 16:21-0400 Body mass index (BMI) [Ratio] 36 kg/m2 Dr. Kayleigh Singleton Work Phone: [facility] 03-14-2023 16:21-0400 Body temperature 98.5 [degF] Dr. Kayleigh Singleton Work Phone: [facility] 03-14-2023 16:21-0400 Body weight 130.[address] Kayleigh Singleton Work Phone: [facility] 03-14-2023 16:21-0400 Diastolic blood pressure 72 mm[Hg] Dr. Kayleigh Singleton Work Phone: [facility] 03-14-2023 16:21-0400 Heart rate 115 /min Dr. Kayleigh Singleton Work Phone: [facility] 03-14-2023 16:21-0400 Respiratory rate 16 /min Dr. Kayleigh Singleton Work Phone: [facility] 03-14-2023 16:21-0400 SaO2% (BldA) [Mass fraction] 95 % Dr. Kayleigh Singleton Work Phone: [facility] 03-14-2023 16:21-0400 Systolic blood pressure 104 mm[Hg] Dr. Kayleigh Singleton Work Phone: [facility] 12-20-2022 16:04-0400 Body height 190.[address] Kayleigh Singleton Work Phone: [facility] 12-20-2022 16:04-0400 Body mass index (BMI) [Ratio] 36.7 kg/m2 Dr. Kayleigh Singleton Work Phone: [facility] 12-20-2022 16:04-0400 Body temperature 98.2 [degF] Dr. Kayleigh Singleton Work Phone: [facility] 12-20-2022 16:04-0400 Body weight 133.[address] Kayleigh Singleton Work Phone: [facility] 12-20-2022 16:04-0400 Diastolic blood pressure 82 mm[Hg] Dr. Kayleigh Singleton Work Phone: [facility] 12-20-2022 16:04-0400 Heart rate 120 /min Dr. Kayleihg Singleton Work Phone: [facility] 12-20-2022 16:04-0400 Respiratory rate 16 /min Dr. Kayleigh Singleton Work Phone: [facility] 12-20-2022 16:04-0400 SaO2% (BldA) [Mass fraction] 98 % Dr. Kayleigh Singleton Work Phone: [facility] 12-20-2022 16:04-0400 Systolic blood pressure 120 mm[Hg] Dr. Kayleigh Singleton Work Phone: [facility] 11-22-2022 15:58-0400 Body height 190.[address] Kayleigh Singleton Work Phone: [facility] 08-22-2022 12:44-0500 Body temperature 97.4 [degF] Dr. Kayleigh Singleton Work Phone: [facility] 08-22-2022 12:44-0500 Diastolic blood pressure 61 mm[Hg] Dr. Kayleigh Singleton Work Phone: [facility] 08-22-2022 12:44-0500 Heart rate 67 /min Dr. Kayleigh Singleton Work Phone: [facility] 08-22-2022 12:44-0500 Respiratory rate 16 /min Dr. Kayleigh Singleton Work Phone: [facility] 08-22-2022 12:44-0500 SaO2% (BldA) [Mass fraction] 98 % Dr. Kayleigh Singleton Work Phone: [facility] 08-22-2022 12:44-0500 Systolic blood pressure 89 mm[Hg] Dr. Kayleigh Singleton Work Phone: [facility] 08-22-2022 11:15-0500 Inhaled oxygen flow rate 3 L/min Dr. Kayleigh Singleton Work Phone: [facility] 08-22-2022 07:10-0500 Body mass index (BMI) [Ratio] 35.2 kg/m2 Dr. Kayleigh Singleton Work Phone: [facility] 08-22-2022 07:10-0500 Body weight [address] Kayleigh Singleton Work Phone: [facility] 08-09-2022 14:19-0500 Body mass index (BMI) [Ratio] 36.3 kg/m2 Dr. Kayleigh Singleton Work Phone: [facility] 08-09-2022 14:19-0500 Body weight 132.[address] Kayleigh Singleton Work Phone: [facility] 08-09-2022 14:19-0500 Diastolic blood pressure 78 mm[Hg] Dr. Kayleigh Singleton Work Phone: [facility] 08-09-2022 14:19-0500 Heart rate 112 /min Dr. Kayleigh Singleton Work Phone: [facility] 08-09-2022 14:19-0500 Respiratory rate 16 /min Dr. Kayleigh Singleton Work Phone: [facility] 08-09-2022 14:19-0500 Systolic blood pressure 116 mm[Hg] Dr. Kayleigh Singleton Work Phone: [facility] 07-17-2022 10:04-0500 Body temperature 97.9 [degF] Anya Fiordaliza SENIOR BIOINFORMATICS SPECIALIST.METAL FINISHER Work Phone: [facility] 07-17-2022 10:04-0500 Body weight 132 kg Anya Fiordaliza SENIOR BIOINFORMATICS SPECIALIST.METAL FINISHER Work Phone: [facility] 07-17-2022 10:04-0500 Diastolic blood pressure 86 mm[Hg] Anya Fiordaliza SENIOR BIOINFORMATICS SPECIALIST.METAL FINISHER Work Phone: [facility] 07-17-2022 10:04-0500 Heart rate 98 /min Anya Fiordaliza SENIOR BIOINFORMATICS SPECIALIST.METAL FINISHER Work Phone: [facility] 07-17-2022 10:04-0500 Respiratory rate 16 /min Anya Fiordaliza SENIOR BIOINFORMATICS SPECIALIST.METAL FINISHER Work Phone: [facility] 07-17-2022 10:04-0500 SaO2% (BldA) [Mass fraction] 97 % Anya Fiordaliza SENIOR BIOINFORMATICS SPECIALIST.METAL FINISHER Work Phone: [facility] 07-17-2022 10:04-0500 Systolic blood pressure 132 mm[Hg] Anya Fiordaliza SENIOR BIOINFORMATICS SPECIALIST.METAL FINISHER Work Phone: [facility] 07-10-2022 16:20-0500 Body temperature 97.6 [degF] Dr. Kayleigh Singleton Work Phone: [facility] Work Phone: 07-10-2022 16:20-0500 Diastolic blood pressure 86 mm[Hg] Dr. Kayleigh Singleton Work Phone: [facility] Work Phone: 07-10-2022 16:20-0500 Heart rate 109 /min Dr. Kayleigh Singleton Work Phone: [facility] Work Phone: 07-10-2022 16:20-0500 Respiratory rate 14 /min Dr. Kayleigh Singleton Work Phone: [facility] Work Phone: 07-10-2022 16:20-0500 SaO2% (BldA) [Mass fraction] 99 % Dr. Kayleigh Singleton Work Phone: [facility] Work Phone: 07-10-2022 16:20-0500 Systolic blood pressure 130 mm[Hg] Dr. Kayleigh Singleton Work Phone: [facility] Work Phone: 06-03-2022 09:02-0400 Body temperature 97.2 [degF] Lillian Bermudez APRN.METAL FINISHER Work Phone: [facility] 06-03-2022 09:02-0400 Body weight 133.27 kg Lillian Bermudez APRN.METAL FINISHER Work Phone: [facility] 06-03-2022 09:02-0400 Diastolic blood pressure 84 mm[Hg] Lillian Bermudez APRN.METAL FINISHER Work Phone: [facility] 06-03-2022 09:02-0400 Heart rate 103 /min Lillian Bermudez APRN.METAL FINISHER Work Phone: [facility] 06-03-2022 09:02-0400 Respiratory rate 20 /min Lillian Bermudez APRN.METAL FINISHER Work Phone: [facility] 06-03-2022 09:02-0400 SaO2% (BldA) [Mass fraction] 97 % Lillian Bermudez APRN.METAL FINISHER Work Phone: [facility] 06-03-2022 09:02-0400 Systolic blood pressure 122 mm[Hg] Lillian Bermudez APRN.CNP Work Phone: [facility] 04-09-2022 08:04-0400 Body height 190.[address] Kayleigh Singleton Work Phone: [facility] Work Phone: 04-09-2022 08:04-0400 Body mass index (BMI) [Ratio] 35.6 kg/m2 Dr. Kayleigh Singleton Work Phone: [facility] Work Phone: 04-09-2022 08:04-0400 Body weight 129.[address] Kayleigh Singleton Work Phone: [facility] Work Phone: 03-31-2022 10:34-0400 Body temperature 98 [degF] Dr. Kayleigh Singleton Work Phone: [facility] Work Phone: 03-31-2022 10:34-0400 Diastolic blood pressure 82 mm[Hg] Dr. Kayleigh Singleton Work Phone: [facility] Work Phone: 03-31-2022 10:34-0400 Heart rate 88 /min Dr. Kayleigh Singleton Work Phone: [facility] Work Phone: 03-31-2022 10:34-0400 Respiratory rate 14 /min Dr. Kayleigh Singleton Work Phone: [facility] Work Phone: 03-31-2022 10:34-0400 SaO2% (BldA) [Mass fraction] 96 % Dr. Kayleigh Singleton Work Phone: [facility] Work Phone: 03-31-2022 10:34-0400 Systolic blood pressure 156 mm[Hg] Dr. Kayleigh Singleton Work Phone: [facility] Work Phone: 03-27-2022 11:26-0400 Body height 190.[address] Kayleigh Singleton Work Phone: [facility] Work Phone: 03-23-2022 11:40-0400 Body temperature 97.9 [degF] Dr. Kayleigh Singleton Work Phone: [facility] Work Phone: 03-23-2022 11:40-0400 Diastolic blood pressure 90 mm[Hg] Dr. Kayleigh Singleton Work Phone: [facility] Work Phone: 03-23-2022 11:40-0400 Heart rate 85 /min Dr. Kayleigh Singleton Work Phone: [facility] Work Phone: 03-23-2022 11:40-0400 Respiratory rate 16 /min Dr. Kayleigh Singleton Work Phone: [facility] Work Phone: 03-23-2022 11:40-0400 SaO2% (BldA) [Mass fraction] 94 % Dr. Kayleigh Singleton Work Phone: [facility] Work Phone: 03-23-2022 11:40-0400 Systolic blood pressure 132 mm[Hg] Dr. Kayleigh Singleton Work Phone: [facility] Work Phone: 03-23-2022 11:35-0400 Inhaled oxygen flow rate 2 L/min Dr. Kayleigh Singleton Work Phone: [facility] Work Phone: 03-23-2022 10:10-0400 Body height 190.[address] Kayleigh Singleton Work Phone: [facility] Work Phone: 03-23-2022 10:10-0400 Body mass index (BMI) [Ratio] 34.9 kg/m2 Dr. Kayleigh Singleton Work Phone: [facility] Work Phone: 03-23-2022 10:10-0400 Body weight [address] Kayleigh Singleton Work Phone: [facility] Work Phone: 12-29-2021 10:47-0400 Body mass index (BMI) [Ratio] 36.2 kg/m2 Dr. Kayleigh Singleton Work Phone: [facility] Work Phone: 12-29-2021 10:47-0400 Body weight 131.[address] Kayleigh Singleton Work Phone: [facility] Work Phone: 12-06-2021 16:08-0400 Body mass index (BMI) [Ratio] 36.4 kg/m2 Dr. Kayleigh Singleton Work Phone: [facility] Work Phone: 12-06-2021 16:08-0400 Body temperature 97.7 [degF] Dr. Kayleigh Singleton Work Phone: [facility] Work Phone: 12-06-2021 16:08-0400 Body weight 132.[address] Kayleigh Singleton Work Phone: [facility] Work Phone: 12-06-2021 16:08-0400 Diastolic blood pressure 72 mm[Hg] Dr. Kayleigh Singleton Work Phone: [facility] Work Phone: 12-06-2021 16:08-0400 Heart rate 97 /min Dr. Kayleigh Singleton Work Phone: [facility] Work Phone: 12-06-2021 16:08-0400 Respiratory rate 16 /min Dr. Kayleigh Singleton Work Phone: [facility] Work Phone: 12-06-2021 16:08-0400 SaO2% (BldA) [Mass fraction] 96 % Dr. Kayleigh Singleton Work Phone: [facility] Work Phone: 12-06-2021 16:08-0400 Systolic blood pressure 122 mm[Hg] Dr. Kayleigh Singleton Work Phone: [facility] Work Phone: Encounters Encounter Date Encounter Type Care Provider Facility Start: 04-23-2025 ambulatory [facility] Facility: [facility] Start: 04-20-2025 ambulatory Kayleigh Singleton [facility] ty:[facility] Start: 04-15-2025 End: 04-15-[address] Kayleigh Singleton MD -[facility] Work Phone: Start: 04-15-2025 End: 04-15-[address] Kayleigh Singleton MD Work Phone: -[facility] Start: 03-22-2025 End: 03-26-2025 Refill Zoltan Rocha MD Work Phone: [facility] José Miguel Stoddard Comment on above: RLS (restless legs s yndrome) Start: 03-03-2025 End: 03-08-2025 Telephone encounter Zoltan Rocha MD Work Phone: [facility] [place] Stoddard Comment on above: Discuss Medications Start: 03-01-2025 End: 03-01-[address] Kayleigh Singleton MD Work Phone: -Laboratory Work Phone: Start: 03-01-2025 End: 03-02-2025 Refill Zoltan Rocha MD Work Phone: [facility] Comment on above: RLS (restless legs s yndrome) Start: 03-01-2025 End: 03-01-2025 ambulatory VANDA MARILYNN Facility:[facility] Start: 02-18-2025 End: 02-18-2025 Office outpatient visit 25 minutes Zoltan Rocha MD Work Phone: [facility] Miguel Stoddard Comment on above: RLS (restless legs s yndrome) (Primary Dx); PO (obstructive sleep apnea); Vitamin D deficiency Start: 02-18-2025 End: 02-18-2025 [facility] Start: 02-16-2025 End: 02-16-2025 Patient encounter procedure Iwona CATES -[facility] Work Phone: Start: 02-16-2025 End: 02-16-[address] Kayleigh Singleton MD Work Phone: -[facility] Start: 02-11-2025 End: 02-11-2025 Refill Zoltan Rocha MD Work Phone: [facility] José Miguel Stoddard Comment on above: Vitamin D deficiency Start: 02-03-2025 End: 02-03-[address] Kayleigh Singleton MD Work Phone: -Laboratory Start: 02-03-2025 End: 02-03-[address] Elliot Trevino MD -Laboratory Work Phone: Start: 02-03-2025 End: 02-03-2025 ambulatory Kayleigh Singleton Facility:[facility] Start: 01-27-2025 End: 01-27-[address] Kayleigh Singleton MD Work Phone: [facility] Work Phone: Start: 01-27-2025 End: 01-27-[address] Kayleigh Singleton MD -Ultrasound [facility] Work Phone: Start: 01-27-2025 End: 01-27-2025 ambulatory [facility] Facility:[facility] Start: 01-22-2025 End: 01-22-[address] Elliot Trevino MD -[facility] Work Phone: Start: 01-22-2025 End: 01-22-[address] Kayleigh Singleton MD Work Phone: [facility] Work Phone: Start: 01-08-2025 End: 01-08-[address] Kayleigh Singleton MD -[facility] Work Phone: Start: 01-08-2025 End: 01-08-[address] Kayleigh Singleton MD Work Phone: [facility] Work Phone: Start: 01-08-2025 End: 01-08-2025 ambulatory [facility] Facility:[facility] Start: 01-05-2025 End: 01-05-2025 ambulatory ZOLTAN ROCHA [facility] Start: 01-05-2025 End: 01-05-2025 Office outpatient visit 25 minutes Zoltan Rocha MD Work Phone: [facility] Comment on above: RLS (restless legs s yndrome) (Primary Dx); PO (obstructive sleep apnea); Vitamin D deficiency Start: 11-30-2024 End: 11-30-2024 Refill Zoltan Rocha MD Work Phone: [facility] [place] Stoddard Comment on above: RLS (restless legs s yndrome) Start: 11-27-2024 End: 11-27-2024 Telephone encounter Zoltan Rocha MD Work Phone: [facility] Comment on above: Cpap Start: 11-23-2024 End: 11-23-2024 Office outpatient visit 25 minutes Zoltan Rocha MD Work Phone: [facility] Sleep Medicine [place] Miguel Stoddard Comment on above: RLS (restless legs s yndrome) (Primary Dx); PO (obstructive sleep apnea); Class 2 obesity in adult, unspecified BMI, unspecified obesity type, unspecified whether serious comorbidity present Start: 11-23-2024 End: 11-23-2024 ambulatory ZOLTAN [facility] Start: 11-09-2024 End: 12-23-2024 Telephone encounter Zoltan Rocha MD Work Phone: [facility] Miguel Stoddard Comment on above: Appointment Start: 10-09-2024 End: 10-09-2024 Patient encounter procedure Jonathan Garcia [place] -[facility] Work Phone: Start: 10-09-2024 End: 10-09-2024 ambulatory Kayleigh Singleotn Facility:[facility] Start: 10-05-2024 End: 10-05-[address] Kayleigh Singleton MD -[facility] Work Phone: Start: 10-05-2024 End: 10-05-[address] Kayleigh Singleton MD Work Phone: [facility] Work Phone: Start: 10-05-2024 End: 10-05-2024 ambulatory Arnaldofontanelletriston Singleton Facility:[facility] Start: 09-24-2024 End: 09-24-2024 Office outpatient new 60 minutes Zoltan Rocha MD Work Phone: [facility] [place] Stoddard Comment on above: RLS (restless legs s yndrome) (Primary Dx); PO (obstructive sleep apnea); Class 2 obesity in adult, unspecified BMI, unspecified obesity type, unspecified whether serious comorbidity present Start: 09-24-2024 End: 09-24-2024 ambulatory ZOLTAN [facility] Start: 08-10-2024 End: 08-10-2024 Telephone encounter Zoltan Rocha MD Work Phone: [facility] Sleep Medicine - [place] Miguel Stoddard Comment on above: Other (Sleep Med Ref erral) Start: 07-06-2024 End: 07-06-[address] Kayleigh Singleton MD -[facility] Work Phone: Start: 07-06-2024 End: 07-06-2024 ambulatory Kayleigh Singleton Facility:[facility] Start: 09-25-2023 End: 09-25-[address] Kayleigh Singleton Work Phone: [facility] Work Phone: Start: 09-25-2023 End: 09-25-[address] Kayleigh Singleton Work Phone: [facility] Internal Medicine Work Phone: Start: 09-17-2023 End: 09-17-[address] Kayleigh Singleton Work Phone: [facility] Internal Medicine Work Phone: Start: 09-17-2023 End: 09-17-[address] Kayleigh Singleton Work Phone: [facility] Work Phone: Start: 09-10-[address] Aric Singleton Work Phone: [facility]-Occupational Therapy Work Phone: Start: 08-19-2023 End: 08-19-[address] Kayleigh Singleton Work Phone: [facility] Work Phone: Start: 08-19-2023 End: 08-19-[address] Kayleigh Singleton Work Phone: [facility]-Laboratory, Specimen Work Phone: Start: 08-15-[address] Aric Singleton Work Phone: [facility] Work Phone: Start: 08-13-2023 End: 08-13-[address] Kayleigh Singleton Work Phone: [facility] Work Phone: Start: 07-15-2023 End: 07-15-[address] Kayleigh Singleton Work Phone: [facility] Work Phone: Start: 07-09-[address] Aric Singleton Work Phone: [facility] Work Phone: Start: 07-08-2023 Non-patient / Non-visit Dr. Kayleigh Singleton Work Phone: [facility] Start: 07-08-2023 End: 07-09-[address] Kayleigh Singleton Work Phone: [facility] Work Phone: Start: 07-08-2023 End: 07-09-[address] Kayleigh Singleton [facility] Work Phone: Start: 06-24-2023 Non-patient / Non-visit Dr. Kayleigh Singleton Work Phone: [facility] Start: 06-24-2023 End: 06-24-[address] Kayleigh Singleton Work Phone: [facility] Work Phone: Start: 06-19-2023 End: 06-19-[address] Kayleigh Singleton Work Phone: [facility] Internal Medicine Work Phone: Start: 06-10-2023 End: 06-10-[address] Kayleigh Singleton Work Phone: [facility] Work Phone: Start: 06-10-2023 Non-patient / Non-visit Dr. Kayleigh Singleton Work Phone: [facility] Start: 06-10-2023 End: 06-11-[address] Kayleigh Singleton Work Phone: [facility] Work Phone: Start: 06-10-2023 End: 06-11-[address] Kayleigh Singleton Work Phone: [facility] Work Phone: Start: 06-03-2023 Non-patient / Non-visit Dr. Kayleigh Singleton Work Phone: [facility] Start: 06-03-2023 End: 06-03-[address] Kayleigh Singleton Work Phone: [facility] Work Phone: Start: 06-03-[address] Aric Singleton Work Phone: [facility] Work Phone: Start: 05-30-2023 End: 05-30-[address] Kayleigh Singleton Work Phone: [facility] Work Phone: Start: 05-30-2023 End: 05-30-[address] Kayleigh Singleton Work Phone: [facility]-Laboratory Work Phone: Start: 05-30-2023 End: 05-30-[address] Kayleigh Singleton Work Phone: [facility] Work Phone: Start: 05-28-2023 End: 05-28-[address] Kayleigh Singleton Work Phone: [facility] Work Phone: Start: 05-23-2023 End: 05-23-[address] Kayleigh Singleton Work Phone: [facility] Work Phone: Start: 05-10-2023 End: 05-10-[address] Kayleigh Singleton Work Phone: [facility] Work Phone: Start: 05-08-2023 End: 05-08-2023 Admission to same day surgery center [facility] Kayleigh Singleton [facility] Start: 05-08-2023 Non-patient / Non-visit Dr. Kayleigh Singleton Work Phone: [facility] Start: 05-08-2023 End: 05-08-2023 Admission to same day surgery center Dr[facility] Kayleigh Singleton [facility] Start: 04-03-2023 End: 04-03-2023 Emergency department patient visit REMI MCLEAN MD Facility:B Start: 04-03-2023 End: 04-03-2023 Emergency department patient visit REMI MCLEAN MD [facility] Start: 03-26-2023 End: 03-26-[address] Kayleigh Singleton Work Phone: [facility] Work Phone: Start: 03-22-2023 End: 03-22-[address] Kayleigh Singleton Work Phone: [facility] Work Phone: Start: 03-21-2023 End: 03-21-[address] Kayleigh Singleton Work Phone: [facility] Work Phone: Start: 03-21-2023 End: 03-21-[address] Kayleigh Singleton Work Phone: [facility] Work Phone: Start: 03-14-2023 End: 03-14-[address] Kayleigh Singleton Work Phone: [place] [facility] Work Phone: Start: 03-14-2023 End: 03-14-[address] Kayleigh Singleton Work Phone: [facility] Work Phone: Start: 03-14-2023 End: 03-14-[address] Kayleigh Singleton Work Phone: [facility]-Laboratory Work Phone: Start: 02-28-2023 End: 02-28-[address] Kayleigh Singleton Work Phone: [facility] Work Phone: Start: 02-28-2023 End: 02-28-[address] Kayleigh Singleton Work Phone: [facility] Work Phone: Start: 02-06-2023 End: 02-06-[address] Kayleigh Singleton Work Phone: [facility] Work Phone: Start: 02-06-2023 End: 02-06-[address] Kayleigh Singleton Work Phone: [facility]-Sleep Lab Work Phone: Start: 02-04-2023 End: 02-04-[address] Kayleigh Singleton Work Phone: [facility] Work Phone: Start: 02-04-2023 End: 02-04-[address] Kayleigh Singleton Work Phone: [facility]-Occupational Therapy Work Phone: Start: 01-31-2023 End: 01-31-[address] Kayleigh Singleton Work Phone: [facility] Work Phone: Start: 01-19-2023 End: 01-19-[address] Kayleigh Singleton Work Phone: [facility], [facility] Work Phone: Start: 01-18-2023 End: 01-18-[address] Kayleigh Singleton Work Phone: [facility]-Sleep Lab Work Phone: Start: 01-03-2023 End: 01-03-[address] Kayleigh Singleton Work Phone: [facility] Work Phone: Start: 12-20-2022 End: 12-20-[address] Kayleigh Singleton Work Phone: [facility] Internal Medicine Work Phone: Start: 12-20-2022 End: 12-20-[address] Kayleigh Singleton Work Phone: [facility] Work Phone: Start: 12-07-2022 End: 12-07-[address] Kayleigh Singleton Work Phone: [facility] Work Phone: Start: 11-23-2022 End: 11-23-[address] Kayleigh Singleton Work Phone: [facility] Work Phone: Start: 11-23-2022 End: 11-23-[address] Kayleigh Singleton Work Phone: [facility]-Laboratory, Specimen Start: 11-23-2022 End: 11-23-[address] Kayleigh Singleton Work Phone: [facility] Start: 11-19-2022 End: 11-19-[address] Kayleigh Singleton Work Phone: [facility] Start: 11-15-[address] Aric Singleton Work Phone: [facility]-Occupational Therapy Start: 10-22-2022 End: 10-22-[address] Kayleigh Singleton Work Phone: [facility] Start: 09-28-2022 End: 09-28-[address] Kayleigh Singleton Work Phone: [facility] Start: 09-14-2022 End: 09-14-[address] Kayleigh Singleton Work Phone: [facility] Start: 09-13-2022 End: 09-13-[address] Kayleigh Singleton Work Phone: [facility] Start: 08-31-2022 End: 08-31-[address] Kayleigh Singleton Work Phone: [facility] Start: 08-24-2022 End: 08-24-[address] Kayleigh Singleton Work Phone: [facility] Start: 08-22-2022 Non-patient / Non-visit Dr. Kayleigh Singleton Work Phone: [facility] Start: 08-22-2022 End: 08-22-2022 Admission to same day surgery center Dr. Kayleigh Singleton Work Phone: [facility]-Surgical Day Care Start: 08-09-[address] Kayleigh Singleton Work Phone: [facility] Start: 08-09-2022 End: 08-09-2022 Admission to same day surgery center Dr. Kayleigh Singleton Work Phone: [facility] Start: 08-09-2022 End: 08-09-[address] Kayleigh Singleton Work Phone: [facility] Start: 07-19-2022 End: 07-19-[address] Kayleigh Singleton Work Phone: [facility] Work Phone: Start: 07-19-2022 End: 07-19-[address] Kayleigh Singleton Work Phone: [facility]-Laboratory, Specimen Start: 07-17-2022 End: 07-17-2022 [facility] WATKIN[facility]fania Facility:[facility] Start: 07-17-2022 End: 07-17-2022 Patient encounter procedure Anya Mnacera APRN.METAL FINISHER Work Phone: [facility] Comment on above: Sore throat (Primary Dx); URI with cough and congestion Start: 07-10-2022 End: 07-10-[address] Kayleigh Singleton Work Phone: [facility] Internal Medicine Start: 06-22-2022 End: 06-22-[address] Kayleigh Singleton Work Phone: [facility] Start: 06-08-2022 End: 06-08-[address] Kayleigh Singleton Work Phone: [facility] Start: 06-08-2022 End: 06-08-[address] Kayleigh Singleton Work Phone: [facility] Work Phone: Start: 06-08-2022 End: 06-08-[address] Kayleigh Singleton Work Phone: [facility]-Occupational Therapy Start: 06-04-2022 End: 06-04-2022 [facility]ulatory [facility] Facility:[facility] Start: 06-04-2022 End: 06-04-2022 Subsequent hospital visit by physician Vasile [facility] Work Phone: Radiology Comment on above: Acute cough [R05.1] Start: 06-03-2022 End: 06-03-2022 ambulatory [facility] Facility:[facility] Start: 06-03-2022 End: 06-03-2022 Patient encounter procedure Lillian Bermudez APRN.METAL FINISHER Work Phone: [facility] Comment on above: Acute cough (Primary Dx) Start: 05-07-2022 End: 05-07-[address] Kayleigh Singleton Work Phone: [facility] Start: 04-20-2022 End: 04-20-[address] Kayleigh Singleton Work Phone: [facility] Start: 04-18-2022 End: 04-18-[address] Kayleigh Singleton Work Phone: [facility] Work Phone: Start: 04-18-2022 End: 04-18-[address] Kayleigh Singleton Work Phone: [facility] Start: 04-09-2022 End: 04-09-[address] Kayleigh Singleton Work Phone: [facility] Start: 03-31-2022 End: 03-31-[address] Kayleigh Singleton Work Phone: [facility] Start: 03-27-2022 End: 03-27-[address] Kayleigh Singleton Work Phone: [facility] Start: 03-23-2022 Non-patient / Non-visit Dr. Kayleigh Singleton Work Phone: [facility] Start: 03-23-2022 End: 03-23-2022 Admission to same day surgery center Dr. Kayleigh Singleton Work Phone: [facility]-Endoscopy Start: 12-29-2021 Non-patient / Non-visit Dr. Kayleigh Singleton Work Phone: [facility] Start: 12-06-[address] Kayleigh Singleton Work Phone: [facility] Start: 12-06-2021 End: 12-06-2021 Encounter for general adult medical examination without abnormal findings Dr. Kayleigh Singleton Work Phone: [facility] Start: 12-06-2021 End: 12-06-[address] Kayleigh Singleton Work Phone: [facility] Start: 12-19-2017 End: 12-19-2017 Ambulatory JONATHAN EVANS [facility] Start: 12-04-2017 End: 12-05-2017 Ambulatory JONATHAN EVANS [facility] Start: 11-20-2017 End: 11-20-2017 Ambulatory JONATHAN EVANS [facility] Start: 11-12-2017 End: 11-12-2017 Emergency department patient visit [facility] Start: 10-30-2017 End: 10-30-2017 Ambulatory JONATHAN EVANS [facility] Start: 10-23-2017 End: 10-23-2017 Ambulatory JONATHAN EVANS [facility] Start: 04-04-2017 Ambulatory ROE CREWS) [facility] Procedures Date Procedure Procedure Detail Performing Clinician Start: 03-01-2025 Vitamin D, 25-hydrox y measurement Dr. Kayleigh Singleton MD Work Phone: Comment on above: Vitamin D StatusDefi ciency: <20 ng/mL (50nmol/L)Insufficiency: 20-30 ng/mL (50-75 nmol/L)Sufficiency: 30-100 ng/mL (75-250 nmol/L)Toxicity: >100 ng/mL (>250 nmol/L) Start: 01-27-2025 Ultrasound elastogra phy of liver Dr. Kayleigh Singleton MD Work Phone: Start: 01-05-2025 Follow-up visit Follow-up ZOLTAN HICKS [...] 07-17-2022 STREP A MOLECULAR (POC) Anya Mancera APRN.METAL FINISHER Work Phone: Start: 06-04-2022 Radiologic exam ches t 2 views Lillian Bermudez APRN.METAL FINISHER Work Phone: Start: 04-18-2022 MRI of joint [...] for Adults (1 - 1-dose 75+ series) [facility] Start: 05-06-2025 End: 05-06-2025 Patient encounter procedure 05/06/2025 2:00 PM EDT Office Visit [facility] Sleep Medicine - [place] [address] [place] [address] Zoltan Rocha MD [address] [place] [address] [facility] Start: 04-12-2025 Influenza vaccination [facility] Start: 2025 Pneumococcal Vaccine : 50+ Years (1 of 1 - PCV) Pneumococcal Vaccine: 50+ Years (1 of 1 - PCV) [facility] Start: 2025 Zoster Vaccines (1 of 2) Zoste r Vaccines (1 of 2) [facility] Start: 03-11-2025 End: 03-11-2025 Patient encounter procedure 03/11/2025 3:30 PM EDT Office Visit [facility] Medicine - [place] [address] [place] [address] Zoltan Rocha MD [address] [place] [address] [facility] [place] Start: 02-18-2025 End: 02-18-2025 Patient encounter procedure 02/18/2025 2:30 PM EDT Office Visit [facility] Medicine - [place] [address] [place] [address] Zoltan Rocha MD [address] [place] [address] [facility] [place] Start: 02-18-2025 End: 02-18-2026 25-hydroxyvitamin D3 [Mass/volume] in Serum or Plasma Vitamin D 25 hydroxy Lab Routine Vitamin D deficiency Expected: 02/18/2025 (Approximate), Expires: 02/18/[address] [facility] Work Phone: Comment on above: Expected: 02/18/2025 (Approximate), Expires: 02/18/2026 Start: 01-08-2025 Comprehensive metabo lic 2000 panel - Serum or Plasma [facility] Start: 01-08-[address] [facility] Start: 01-05-2025 End: 01-05-2025 Patient encounter procedure 01/05/2025 2:30 PM EDT Office Visit [facility] Medicine - [place] [address] [place] [address] Zoltan Rocha MD [address] [place] [address] [facility] [place] Start: 11-23-2024 End: 11-23-2024 Patient encounter procedure 11/23/2024 10:30 AM EDT Office Visit [facility] Medicine [place] [address] [place] [address] Zoltan Rocha MD [address] [place] [address] [facility] [place] Start: 09-24-2024 End: 09-24-2024 Patient encounter procedure 09/24/2024 11:00 AM EST Office Visit [facility] [place] [address] [place] [address] Zoltan Rocha MD [address] [place] [address] [facility] [place] Start: 04-12-2024 Covid-19 Vaccine ( season) Covid-19 Vaccine ( season) [facility] Start: 04-12-2024 Influenza vaccination Influenza Vacc ine (#1) [facility] Start: 06-24-2023 Patient referral [facility] Work Phone: Start: 05-30-2023 Patient referral [facility] Work Phone: Start: 05-08-2023 Anesthesia open teno jaison elbow to shoulder ANESTH UPPR ARM TENDON SURG [facility] Start: 05-08-2023 Tnot elbow lateral/m edial debride open tdn rpr REPAIR ELBOW RUPESH/ATTCH OPEN [facility] Start: 05-08-[address] [facility] Start: 05-08-2023 Notification of physician [facility] Start: 05-08-2023 Assessment of risk o f venous thromboembolism [facility] Start: 05-08-2023 Catheterization of vein [facility] Start: 05-08-2023 Deep breathing and coughing exercises [facility] Start: 05-08-2023 Following clinical p athway protocol [facility] Start: 05-08-2023 Incentive spirometry [facility] Start: 05-08-2023 Introduction of urin jose catheter [facility] Start: 05-08-[address] [facility] Start: 05-08-2023 Taking patient vital signs [facility] Start: 05-08-2023 Vital signs measurements [facility] Start: 05-08-2023 End: 05-08-2023 [facility] Start: 05-08-2023 Medication education [facility] Start: 05-08-[address] [facility] Start: 09-28-2022 Patient referral [facility] Work Phone: Start: 08-22-2022 Anes open/surg arthroscopic elbow proc nos ANESTH UPPER ARM SURGERY [facility] Start: 08-22-2022 Arthroscopy elbow barboza rgical debridement limited ELBOW ARTHROSCOPY/SURGERY [facility] Start: 08-22-2022 Repair tendon/muscle upper arm/elbow ea RPR TDN/MUSC UPR A/E EACH [facility] Start: 08-22-2022 Notification of physician [facility] Start: 08-22-2022 Catheterization of vein [facility] Start: 08-22-2022 Elevation of affecte d extremity [facility] Start: 08-22-2022 Following clinical p athway protocol [facility] Start: 08-22-2022 Procedure discontinued [facility] Start: 08-22-2022 Provision of activit y privileges [facility] Start: 08-22-2022 Taking patient vital signs [facility] Start: 08-22-2022 Vital signs measurements [facility] Start: 08-22-2022 [facility] Start: 08-22-2022 Medication education [facility] Start: 08-22-[address] [facility] Start: 07-17-2022 End: 07-31-2022 Influenza virus A and B RNA and SARS-CoV-2 (COVID-19) N gene panel - Respiratory specimen by DANGELO with probe detection COVID WITH FLUA+B, ROUTINE Microbiology Routine URI with cough and congestion Expected: 07/17/2022, Expires: 07/31/2022 [facility] Work Phone: Comment on above: Expected: 07/17/2022 , Expires: 07/31/2022 Start: 06-03-2022 End: 07-03-2023 Radiologic exam chest 2 views XR CHEST 2V FRONTAL/LAT Radiology STAT Acute cough Expected: 06/03/2022, Expires: 07/03/2023 [facility] Work Phone: Comment on above: Expected: 06/03/2022 , Expires: 07/03/2023 Start: 04-20-2022 Patient referral [facility] Work Phone: Start: 04-12-2022 Influenza vaccination INFLUENZA (#1) [facility] Start: 03-31-2022 Patient referral [facility] Work Phone: Start: 03-23-2022 Colonoscopy flx dx w /collj spec when pfrmd DIAGNOSTIC COLONOSCOPY [facility] Work Phone: Start: 03-23-[address] [facility] Work Phone: Start: 12-06-2021 Patient referral [facility] Work Phone: Start: 09-19-2021 Lipid panel Lipid Screening [facility] Start: 09-19-2021 LIPID SCREEN LIPID SCREEN [facility] Start: 08-12-2021 DEPRESSION ASSESSMENT DEPRESSION ASS ESSMENT [facility] Start: 03-20-2020 DIABETES SCREEN DIABETES SCREEN [facility] Start: 03-20-2020 Diabetes Screening Diabetes Screenin g [facility] Start: 2020 COLOGUARD (FIT-DNA) COLOGUARD (FIT-D NA) [facility] Start: 2020 Colonoscopy COLONOSCOPY [facility] Start: 2020 COLORECTAL CANCER SCREENING COLORECTAL CANCER SCREENING [facility] Start: [address] COLONOGRAPHY [facility] Start: 2020 FECAL OCCULT BLOOD FECAL OCCULT BLOO D [facility] Start: 2020 Screening for malign ant neoplasm of colon [facility] Start: 2020 SIGMOIDOSCOPY SIGMOIDOSCOPY [facility] Start: 1994 DTaP/Tdap/Td Vaccine s (1 - Tdap) DTaP/Tdap/Td Vaccines (1 - Tdap) [facility] Start: 1994 Hepatitis A Vaccines (1 of 2 - Risk 2-dose series) Hepatitis A Vaccines (1 of 2 - Risk 2-dose series) [facility] Start: 1994 Hepatitis B Vaccine (1 of 3 - 19+ 3-dose series) Hepatitis B Vaccine (1 of 3 - 19+ 3-dose series) [facility] Start: 1994 Hepatitis B Vaccines (1 of 3 - 19+ 3-dose series) Hepatitis B Vaccines (1 of 3 - 19+ 3-dose series) [facility] Start: 1994 Urine microalbumin profile [facility] Start: 1993 ANNUAL PCP TEAM WHITE WASHER GORAN DISEASE VISIT ANNUAL PCP TEAM CHRONIC DISEASE VISIT [facility] Start: 1993 Anxiety Screening Anxiety Screening [facility] Start: 1993 BP CONTROLLED (<130/80) BP CONTROLLE D (<130/80) [facility] Start: 1993 Depression Screening Depression Scre ening [facility] Start: 1993 Diabetes: Estimated Glomerular Filtration Rate for [facility] Diabetes: Estimated Glomerular Filtration Rate for [facility] Start: 1993 Diabetes: Urine Albumin-Creatinine Ratio for [facility] Diabetes: Urine Albumin-Creatinine Ratio for [facility] Start: 1993 HEPATITIS C SCREENING HEPATITIS C [facility] Start: 1993 Hepatitis C screening Hepatitis C [facility] Start: 1993 HIV SCREENING HIV SCREENING [facility] Start: 1993 HIV screening HIV Screening [facility] Start: 1987 Depression Screening Depression Scre ening [facility] Start: 1985 Diabetic foot examination Diabetes: Foot Exam [facility] Start: 1985 Glaucoma screening Diabetes: R etinopathy Screening [facility] Start: 1985 Preventive dental service Diabetes: Dental Exam [facility] Start: 1976 MMR Vaccines (1 of 1 - Standard series) MMR Vaccines (1 of 1 - Standard series) [facility] Start: 1975 COVID-19 VACCINE (#1) COVID-19 VACCI NE (#1) [facility] Start: 1975 Hemoglobin A1c measurement Lelo betes: Hemoglobin A1C [facility] Start: 1975 HEPATITIS B (1 of 3 - 3-dose series) HEPATITIS B (1 of 3 - 3-dose series) [facility] Start: 1975 HIV screening HIV Screening [facility] Start: 1975 Lipid panel Lipid Panel [facility] Start: 1975 Screening for malign ant neoplasm of colon [facility] Acute hepatitis 1999 panel - Serum [facility] Alanine aminotransfe rase [Enzymatic activity/volume] in Serum or Plasma [facility] Albumin [Mass/volume ] in Serum or Plasma [facility] Alkaline phosphatase [Enzymatic activity/volume] in Serum or Plasma [facility] Anion gap in Serum o r Plasma [facility] Bilirubin, total measurement [facility] BUN/Creatinine ratio [facility] C reactive protein [Mass/volume] in Serum or Plasma [facility] Calcium [Mass/volume ] in Serum or Plasma [facility] Carbon dioxide, tota l [Moles/volume] in Central venous blood [facility] CBC W Auto Different ial panel - Blood [facility] Work Phone: CBC W Auto Different ial panel - Blood [facility] Ceruloplasmin [Mass/volume] in Serum or Plasma [facility] Colonoscopy [facility] Work Phone: Comprehensive metabo lic 1999 panel - Serum or Plasma [facility] Copper [Moles/volume ] in Serum or Plasma [facility] Creatinine [Mass/vol ume] in Serum or Plasma [facility] Cytoplasmic ANCA Screen [facility] Ferritin [Mass/volum e] in Serum or Plasma [facility] Glucose [Mass/volume ] in Serum or Plasma [facility] Hemoglobin A1c/Hemoglobin.total in Blood [facility] Work Phone: Hemoglobin A1c/Hemoglobin.total in Blood [facility] Iron and Iron bindin g capacity panel - Serum or Plasma [facility] Lipid 1995 panel - S masha or Plasma [facility] Work Phone: Lipid 1995 panel - S [facility] or Plasma [facility] Liver stiffness by US.transient elastography [facility] Measurement of renal function [facility] Mitochondria Ab [Pre sence] in Serum [facility] Patient referral [facility] Work Phone: Potassium measurement [facility] Procedure [facility] Prothrombin time [facility] Serum chloride measurement [facility] Smooth muscle Ab [Presence] in Serum [facility] Sodium measurement [facility] Throat culture Throat Culture [facility] Work Phone: Thyroid stimulating hormone measurement [facility] Total protein measurement [facility] Urate [Mass/volume] in Serum or Plasma [facility] Urea nitrogen [Mass/volume] in Serum or Plasma [facility] Urine microalbumin/creatinine ratio measurement [facility] Immunizations Immunization Date Immunization Notes Care Provider Dennys lebron 09-20-2016 influenza virus vacc ine, unspecified formulation [facility] Work Phone: [facility] Payers Date Payer Category Payer Unknown [id number] 2024 [employer] - [employer] [id number] 2024 Medicaid HMO [employer] [facility] [id number] 2024 Self-pay [id number] 2024 Unknown [id number] 2023 Unknown [id number] 2019 Medicaid [id number]. [id number] 2019 Unknown [id number] 1975 Unknown [id number] 2.16.840.1.156035.3.579. 2.627 Unknown [id number] Unknown [id number] Unknown [employer] L[employer] [id number] Unknown [facility] PACKAGE PLAN 0 [id number] Unknown [id number] 2.16.840.1.077542.3.579. 2.462 Unknown [id number] 2.16.840.1.696856.3.579. 2.462 Unknown [id number] 2.16.840.1.084555.3.579. 2.462 Unknown [id number] 2.16.840.1.588493.3.579. 2.462 Unknown [id number] 2.16.840.1.390153.3.579. 2.462 Unknown [id number] 2.16.840.1.555330.3.579. 2.462 Unknown [id number] 2.16.840.1.914783.3.579. 2.462 Unknown [id number] 2.16.840.1.974897.3.579. 2.462 Unknown [id number] 2.16.840.1.969783.3.579. 2.462 Unknown [id number] 2.16.840.1.293394.3.579. 2.462 Unknown [id number] 2.16.840.1.781510.3.579. 2.462 Unknown [id number] 2.16.840.1.740019.3.579. 2.462 Unknown [id number] 2.16.840.1.469032.3.579. 2.462 Unknown [id number] 2.16.840.1.642234.3.579. 2.462 Worker's Compensation [id number] Social History Date Type Detail Facility Start: 03-23-2022 End: 09-25-2023 Tobacco smoking status NHIS Unknown if ever smoked [facility] Start: 1975 Sex Assigned At Male [facility] Start: 06-03-2022 End: 12-16-2023 Tobacco smoking status NHIS Never smoked tobacco [facility] Start: 06-03-2022 End: 09-24-2024 Tobacco use and exposure Smokeless tobacco non-user [facility] Start: 06-03-2022 End: 02-18-2025 Alcohol intake Current drinker of alcohol (finding) [facility] Start: 02-06-2014 Alcohol Comment occasionally [facility] Start: 1975 Sex Assigned At Not on file [facility] Start: 05-24-2022 End: 06-03-2022 Exposure to SARS-CoV-2 (event) Not sure [facility] Work Phone: Tobacco smoking status No Smoking Status Entered [facility] Start: 06-03-2022 End: 02-18-2025 History of Social function [facility] Start: 06-03-2022 End: 02-18-2025 Tobacco use panel [facility] National Score (1-100), lower number is lower risk Not on file [facility] Start: 08-10-2024 End: 10-17-2024 Sex Male (finding) [facility] Start: 09-24-2024 Alcohol Comment rare occ [facility] Medical Equipment Procedure Code Equipment Code Equipment Origin al Text Equipment Identifier Dates Arthroscopy, elbow ([id number]) Tendon/ligame nt bone anchor, non-bioabsorbable ()[id number] FDA Start: 08-22-2022 ([id number]) Tendon/ligament bone anchor, non-bioabsorbable ()[id number] FDA Start: 05-08-2023 Start: 06-19-2024 Blood Sugar Diagnostic (Freestyle Lite Strips) strip Start: 12-02-2023 Lancets (Freesty le Lancets) 28 gauge misc Start: 12-02-2023 Blood Sugar Diagnostic (Freestyle Lite Strips) strip Start: 12-02-2023 Lancets (Freesty le Lancets) 28 gauge misc Start: 12-02-2023 Blood Sugar Diagnostic (Freestyle Lite Strips) strip Start: 12-02-2023 Lancets (Freesty le Lancets) [address] [facility] Start: 12-02-2023 Blood Sugar Diagnostic (Freestyle Lite [...] Facility 04-03-2023 Functional Status Assistive Device None [facility] [place] [facility] 04-03-2023 Functional Status Awake [facility] Mental Status Date Assessment Result Facility 05-08-2023 Cognitive function Voice/Name [facility] Work Phone: 04-03-2023 Mental Status Orientation Oriented x 4 [facility] 04-03-2023 Mental Status [facility] 08-22-2022 Cognitive function Deep Pain [facility] Work Phone: 03-23-2022 Cognitive function Touch/Shaking [facility] Work Phone: 03-23-2022 Cognitive function Patient Orien tation Person;Place;Time [facility] Work Phone: Clinical Notes 06-03-2022 to 03-26-2025 Telephone Encounter - Zoltan Rocha MD - 03/26/2025 4:21 PM EDTTelephone Encounter - Zoltan Rocha MD - 03/26/2025 4:21 PM EDTTelephone Encounter - Zoltan Rocha MD - 03/03/2025 12:04 PM EDT Note Date & Type Note Facility 03-26-2025 Telephone encount er Note Received VM from Dr. Trevino. Called back and left another VM for him to discuss patient's lyrica. [facility] 03-26-2025 Miscellaneous Notes Formattin g of this note might be different from the original. Received VM from Dr. Trevino. Called back and left another VM for him to discuss patient's lyrica. Called and LVM with Dr. Trevino's office to coordinate care for patient. documented in this encounter [facility] 03-23-2025 Miscellaneous Notes Formattin g of this note is different from the original. Last follow up: 02/18/2025 Next appointment: 05/06/2025 Allergies[1] Requested Prescriptions Pending Prescriptions Disp Refills pregabalin (Lyrica) 25 MG capsule 30 capsule 2 Sig: Take 1 capsule daily in the afternoon pregabalin (Lyrica) 75 MG capsule 30 capsule 2 Sig: Take 1 capsule 1-2 hours before bed. Recommendations: - Reviewed compliance data: good overall usage. Continue at current pressure setting. Pt is going back to nasal pillows mask. Have previously sent for chinstrap to add to it--pt to call DME directly to request since he hasn't received. - Will recheck Vit D. - Med mgmt: continue lyrica 25 mg AM and 75 mg HS. Continue mirapex 0.5 mg BID. Will try to touch base with Dr. Trevino to further check in on how lyrica may be affecting his liver? Ideally would have tried to titrate up further. - Sending Rx for Nidra for RLS. - will obtain nocturnal pulse oximetry on settings once he has chinstrap and using with nasal pillows mask. - f/u 2 months. [facility] in [place] [1] Allergies Allergen Reactions Colchicine Nausea And Vomiting and Other Doxycycline Hives documented in this encounter [facility] 03-23-2025 Telephone encount er Note Last follow up: 02/18/2025 Next appointment: 05/06/2025 Allergies[1] Requested Prescriptions Pending Prescriptions Disp Refills pregabalin (Lyrica) 25 MG capsule 30 capsule 2 Sig: Take 1 capsule daily in the afternoon pregabalin (Lyrica) 75 MG capsule 30 capsule 2 Sig: Take 1 capsule 1-2 hours before bed. Recommendations: - Reviewed compliance data: good overall usage. Continue at current pressure setting. Pt is going back to nasal pillows mask. Have previously sent for chinstrap to add to it--pt to call DME directly to request since he hasn't received. - Will recheck Vit D. - Med mgmt: continue lyrica 25 mg AM and 75 mg HS. Continue mirapex 0.5 mg BID. Will try to touch base with Dr. Trevino to further check in on how lyrica may be affecting his liver? Ideally would have tried to titrate up further. - Sending Rx for Nidra for RLS. - will obtain nocturnal pulse oximetry on settings once he has chinstrap and using with nasal pillows mask. - f/u 2 months. [facility] in [place] [1] Allergies Allergen Reactions Colchicine Nausea And Vomiting and Other Doxycycline Hives [facility] 03-03-2025 Telephone encount er Note Called and LVM with Dr. Trevino's office to coordinate care for patient. [facility] 03-03-2025 Miscellaneous Notes Formattin g of this note might be different from the original. Called and LVM with Dr. Trevino's office to coordinate care for patient. documented in this encounter [facility] 03-01-2025 Telephone encount er Note Last follow up: 02/18/25 Next appointment: 05/06/2025 Allergies[1] Requested Prescriptions Pending Prescriptions Disp Refills pramipexole (Mirapex) 0.5 MG tablet 60 tablet 2 Sig: TAKE 1/2 TABLET IN THE MORNING, 1/2 TABLET IN THE AFTERNOON, AND 1 TABLET 2-3 HOURS BEFORE BEDTIME. [1] Allergies Allergen Reactions Colchicine Nausea And Vomiting and Other Doxycycline Hives [facility] 03-01-2025 Miscellaneous Notes Formattin g of this note is different from the original. Last follow up: 02/18/25 Next appointment: 05/06/2025 Allergies[1] Requested Prescriptions Pending Prescriptions Disp Refills pramipexole (Mirapex) 0.5 MG tablet 60 tablet 2 Sig: TAKE 1/2 TABLET IN THE MORNING, 1/2 TABLET IN THE AFTERNOON, AND 1 TABLET 2-3 HOURS BEFORE BEDTIME. [1] Allergies Allergen Reactions Colchicine Nausea And Vomiting and Other Doxycycline Hives documented in this encounter [facility] 02-18-2025 History of Presen t illness Narrative Images from the original note were not included. [facility] FO[facility] UP OFFICE VISIT-SLEEP Date of last visit: 01/05/25 Plan at that time: - Reviewed compliance [...] nasal pillows mask. - f/u 2 months. Interval History: Thinks now lyrica was suggested to be decreased due to worsening kidney function, not for liver problems. Worsening RLS with statin, so had to d/c. Getting back to baseline RLS levels at this time. Difficult to remember daytime pramipexole and lyrica. 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 Never got chin strap. No snoring per , but she does seem to hear/see some mouth breathing. Denies any side effects from lyrica at this time, but doesn't feel like it's doing anything. Taking Lyrica 25 mg PM and 75 mg HS. Also still taking pramipexole 0.5 mg PM (2-4 pm), and 0.5 mg HS Therapy: Bipap 17/12 cmh2O DME: [employer] Mask: nasal pillows Sleep-Wake Schedule Bedtime: 11 P.M. Final wake time: 6 A.M. he does wake up refreshed. Sleep Latency: instantly Awakenings after sleep onset: 1x, because of unknown reasons, and sometimes has difficulty falling asleep Naps: none Estimated total sleep time: 6 hours Sleep Metrics: Leopold Sleepiness Scale: 13 (11 last visit) Past Treatments: Ropinirole Pramipexole Gabapentin Lyrica Sleep Studies: 2014 study - doesn't know [...] 81 mg, Daily Blood Glucose Monitoring Suppl ([employer] Met Air Gluc Meter) w/Device kit USE [...] unchanged from last visit) Physical Exam Vitals: 02/18/25 1429 BP: 99/62 BP Location: Left arm Patient Position: Sitting BP Cuff Size: Large adult Pulse: 80 Resp: 16 SpO2: 97% Weight: 291 lb 3.2 oz (132 kg) Height: 6' 3 (1.905 m) Body mass index is 36.4 kg/m . General appearance: Well appearing. No acute distress. AAOX3 Head: Normocephalic, without obvious abnormality, atraumatic Eyes: Normal sclera and conjunctiva Skin: Skin color normal. No rashes or lesions Psych: Euthymic Mood, restricted affect Labs/additional studies: Impression: Diagnosis Plan 1. RLS (restless legs syndrome) 2. PO (obstructive sleep apnea) 3. Vitamin D deficiency Vitamin D 25 hydroxy Vitamin D 25 hydroxy 49 y/o M with BMI > 30, HTN, DM. Presented with chronic severe RLS, as well as very severe PO. Had period during transition from pramipexole to requip had extreme worsening of RLS. Currently using higher than recommended max dose mirapex, but does note symptom relief. Also with very severe PO, compliant with Bipap 17/12 cmh2O with benefit. Recommendations: - Reviewed compliance data: good overall usage. Continue at current pressure setting. Pt is going back to nasal pillows mask. Have previously sent for chinstrap to add to it--pt to call DME directly to request since he hasn't received. - Will recheck Vit D. - Med mgmt: continue lyrica 25 mg AM and 75 mg HS. Continue mirapex 0.5 mg BID. Will try to touch base with Dr. Trevino to further check in on how lyrica may be affecting his liver? Ideally would have tried to titrate up further. - Sending Rx for Nidra for RLS. - will obtain nocturnal pulse oximetry on settings once he has chinstrap and using with nasal pillows mask. - f/u 2 months. documented in this encounter [facility] 02-18-2025 Instructions Zoltan Rocha MD - 02/18/2025 2:30 PM EDT - Please get your Vitamin D level re-checked at your convenience. You don't have to be fasting for this. - keep your lyrica and pramipexole at the current doses until I have a chance to further discuss with Dr. Trevino. - In the meantime, I'm going to try to order you the Nidra device for restless legs. - Please call [facility] to request the chinstrap. - We'll follow-up in the next 2 months or so. documented in this encounter [facility] 02-11-2025 Telephone encount er Note Will check in with patient at appt next week about this. Holding off on refill for now. [facility] 02-11-2025 Miscellaneous Notes Formattin g of this note might be different from the original. Will check in with patient at appt next week about this. Holding off on refill for now. Last follow up: 01/05/2025 Next appointment: 02/18/2025 Allergies[1] Requested Prescriptions Pending Prescriptions Disp Refills ergocalciferol (Vitamin D2) 1.25 MG (39272 UT) capsule [Pharmacy Med Name: Vitamin D (Ergocalciferol) 1.25 MG (68593 UT) Oral Capsule] 12 capsule 0 Sig: Take 1 capsule by mouth once a week Recommendations: - Reviewed compliance data: good overall [...] nasal pillows mask. - f/u 2 months. [facility] in [place] [1] Allergies Allergen Reactions Colchicine Nausea And Vomiting and Other Doxycycline Hives documented in this encounter [facility] 02-11-2025 Telephone encount er Note Last follow up: 01/05/2025 Next appointment: 02/18/2025 Allergies[1] Requested Prescriptions Pending Prescriptions Disp Refills ergocalciferol (Vitamin D2) 1.25 MG (97901 UT) capsule [Pharmacy Med Name: Vitamin D (Ergocalciferol) 1.25 MG (43057 UT) Oral Capsule] 12 capsule 0 Sig: Take 1 capsule by mouth once a week Recommendations: - Reviewed compliance data: good overall [...] nasal pillows mask. - f/u 2 months. [facility] in [place] [1] Allergies Allergen Reactions Colchicine Nausea And Vomiting and Other Doxycycline Hives [facility] 01-28-2025 Radiology Diagnostic study note [facility] Imaging Services [address] [place] [address] ABD Limited w/ Elastography MR#: [id number] Acct: [id number] Name: GIOVANNI JOHNSON Rep #: [id number] : 1975 M 49 From: Tenzin Abrams MD PCP: Dr. Kayleigh Singleton MD Status: R EG CLI Study:ABD Limited w/ Elastography Date of Exa m: 01/27/25 Exam# [id number] Ordering Dr: Stefania Singleton MD PROCEDURE: ABD LIMITED W/ ELASTOGRAPHY REASON FOR EXAM: ELEVATED LIVER ENZYMES COMPARISON: None. TECHNIQUE: Right upper quadrant abdominal ultrasound. [employer] ElastQ Imaging shear wave elastography for non-invasive assessment of liver tissue stiffness. [employer] EPIQ Elite. FINDINGS: LIVER: Size: Enlarged (hepatomegaly) [...] measurement may be in question. Reading Location: [place] [address] CC: Dr. Kayleigh Singleton MD ~ [employer] Product Owner: Signed [facility] 01-08-2025 Evaluation note Diagnosis Onset Date Resolution Essential hypertension chronic 2024 1:25pm Gastroesophageal reflux disease chronic January 08, 2025 1:25pm Leg cramps chronic January 08, 2025 1:25pm Restless leg syndrome chronic January 08, 2025 1:25pm Type 2 diabetes mellitus chronic January 08, 2025 1:25pm Drug-induced liver injury acute January 22, 2025 1:58pm Dyslipidemia acute January 22, 025 1:58pm Abnormal LFTs (liver function tests) chronic January 22, 2025 1:58pm Metabolic dysfunction-associated steatohepatitis (MASH) chronic January 1:58pm [facility] Work Phone: 1(329) 912-318505-30-2025 Evaluation note* Diagnosis Onset Date Resolution Status Admit Date Essential hypertension chronic Ma y 2024 1:25pm Gastroesophageal reflux disease 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 January 08, 2025 1:25pm Leg cramps chronic January 08, 2025 1:25pm Restless leg syndrome chronic January 08, 2025 1:25pm Type 2 diabetes mellitus chronic January 08, 2025 1:25pm Drug-induced liver injury acute January 22, 2025 1:58pm Dyslipidemia acute January 22, 025 1:58pm Abnormal LFTs (liver functio n tests) chronic January 22, 2025 1:58pm Metabolic dysfunction-associ ated steatohepatitis (MASH) chronic January 1:58pm Essential hypertension chronic 2024 8:55am Mixed hyperlipidemia chronic February 16, 2025 8:55am Tachycardia chronic February 16 8:55am [employer] Work Phone: 1(491) 408-194505-27-2025 History of Present illness Narrative* Zoltan Rocha MD - 01/05/2025 2:30 PM EDT Images from the original note were not included. [facility] FOLLOW UP OFFICE VISIT-SLEEP Date [...] the day. 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 Got new hybrid mask, but hates it. Tube disconnects too easily as well. Still with dry mouth. Goingto go back to nasal pillows mask soon. [...] (Verified unchanged from last visit) Sleep Metrics: Leopold Sleepiness Scale: 11 (9 last visit) Past [...] 81 mg, Daily Blood Glucose Monitoring Suppl ([employer] Met Air Gluc Meter) w/Device kit [...] - f/u 2 months. documented in this [facility]05-27-2025 Instructions* Patient Instructions* Zoltan Rocha MD - 01/05/2025 2:30 PM [...] reading on this set-up. documented in this [facility]04-22-2025 Telephone encounter Note* Telephone Encounter - Hannah Domingo RN - 12/01/2024 1:13 PM EDT Spoke to Anya, was able to order mask in [place] through [employer]. [id number] Miscellaneous Notes* Telephone Encounter - Hannah Domingo RN - 12/01/2024 1:13 PM EDT Spoke to Anya, was able to order mask in [place] through [facility]. * Telephone Encounter - Hannah Domingo RN - 12/01/2024 10:28 AM EDT Left Vm with Anya at [facility], to see how to order a mask through [place], no option to choose a mask. Patient needs a hybrid mask. * Telephone Encounter - Hannah Domingo RN - 11/27/2024 4:46 PM EDT Order submitted via [place] through [employer] for the pressure change. They do not have masks available to order on the online system, will look into that next week and ask rep from [employer] to add that ordering option for our office. * Telephone Encounter - Hannah Domingo RN - 11/27/2024 4:43 PM EDT Images from the original note were not included. MD Hannah Mcgill RN Please send order for increase to 17/12 cmH2O and new hybrid mask. documented in this [facility]ST[facility] [id number] Telephone encounter Note* Telephone Encounter - Hannah Domingo RN - 12/01/2024 10:28 AM EDT Left Vm with Anya at [facility], to see how to order a mask through [place], no option to choose a mask. Patient needs a hybrid mask. [id number] Telephone encounter Note* Telephone Encounter - Hannah Domingo RN - 11/30/2024 3:02 PM EDT Ordered on 11/23/[address] [facility] [id number] Miscellaneous Notes* Telephone Encounter - Hannah Domingo RN - 11/30/2024 3:02 PM EDT Ordered on 11/23/24 documented in this encounterSTrinity Health [id number] Telephone encounter Note* Telephone Encounter - Hannah Domingo RN - 11/27/2024 4:46 PM EDT Order submitted via [place] through [employer] for the pressure change. They do not have masks available to order on the online system, will look into that next week and ask rep from [employer] to add that ordering option for our office. [facility] [id number] Telephone encounter Note* Telephone Encounter - Hannah Domingo RN - 11/27/2024 4:43 PM EDT Images from the original note were not included. MD Hananh Mcgill RN Please send order for increase to 17/12 cmH2O and new hybrid mask. [facility] [id number] History of Present illness Narrative* Zoltan Rocha MD - 11/23/2024 10:30 AM EDT Images from the original note were not included. [facility] FOLLOW UP OFFICE VISIT-SLEEP Date [...] episode of RLS last week. Wonders about effectof new job. Now on his feet most of the day. Also with leg cramps. Knows he isn't quite hydrating enough. Off gabapentin for past week. Does feel that things are going better on PAP therapy with higher pressure. Breathing better. Feelslike it might benefit from slightly higher pressure [...] (Verified unchanged from last visit) Sleep Metrics: Leopold Sleepiness Scale: 9 (8 last visit) Past [...] affect Labs/additional studies: Reviewed outside labs from [facility] Impression: Diagnosis Plan 1. RLS [...] with very severe PO, compliant with Bipap 16/11 cmh2O with benefit. [...] F/u approximately 1 month. documented in this [facility]04-14-2025 Instructions* Patient Instructions* Zoltan Rocha MD - 11/23/2024 10:30 AM EDT - maddison documented in this [facility]03-31-2025 Telephone encounter Note* Telephone Encounter - Ana Puente - 11/09/2024 10:35 AM EDT Name of Caller: Giovanni Contact Reason for [...] need, if any: N/A Medication Name: N/A 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 January 08, 2025 1:25pm Leg cramps chronic January 08, 2025 1:25pm Restless leg syndrome chronic January 08, 2025 1:25pm Type 2 diabetes mellitus chronic January 08, 2025 1:25pm Drug-induced liver injury acute January 22, 2025 1:58pm Dyslipidemia acute January 22, 2 025 1:58pm Abnormal LFTs (liver functio n tests) chronic January 22, 2025 1:58pm Metabolic dysfunction-associ ated steatohepatitis (MASH) chronic January 1:58pm [facility] Work Phone: 1(387) 846-384702-24-2025 Evaluation note* Diagnosis Onset Date Resolution Status Admit Date Essential hypertension chronic Fe bruary 2024 8:39am Restless leg syndrome chronic Feb ruary 2024 8:39am Sleep apnea chronic September 8:39am Type 2 diabetes mellitus chronic October 05, 2024 8:39am Encounter for pre-employment health screening examination acute Feb [place] 2024 2:20pm [facility] Work Phone: 1(257) 203-574402-24-2025 Evaluation note* Diagnosis Onset Date Resolution Status Admit Date Essential hypertension chronic Fe bruary 2024 8:39am Restless leg syndrome chronic Feb ruary 2024 8:39am Sleep apnea chronic September 8:39am Type 2 diabetes mellitus chronic October 05, 2024 8:39am Encounter for pre-employment health screening examination acute Feb [place] 2024 2:20pm Essential hypertension chronic Ma 2024 1:25pm Gastroesophageal reflux disease 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 [facility] NEW PATIENT OFFICE VISIT-SLEEP MEDICINE [...] lbs in past 2 years Sleep Metrics: Leopold Sleepiness Scale: Total score: 8 Past Treatments: [...] testing results (as applicable). documented in this [facility] [facility]02-13-2025 Instructions* Patient Instructions* oZltan Rocha MD - 09/24/2024 11:00 AM EST [...] - I'll check in with you via MyChart in a couple weeks, and then we'll follow-up in the office in afew months. documented in this [facility]01-02-2025 Telephone encounter Note* Telephone Encounter - Jimy Thomas - 08/13/2024 11:45 AM EST Patient is scheduled with us now, thank you! [id number] Miscellaneous Notes* Telephone Encounter - Jimy Thomas - 08/13/2024 11:45 AM EST Patient is scheduled with us now, thank you! * Telephone Encounter - Halima Youngblood - 08/10/2024 8:56 AM EST Mu, We received this sleep med referral in [employer]. I even ended up speaking with someone from the office, and it seems they would like him to see someone as soon as possible. He is brand new to [facility] so I had to make a new chart for him. Thank you! documented in this [facility]12-30-2024 NoteMu, We received this sleep med referral in [employer]. I even ended up speaking with someone from the office, and it seems they would like him to see someone as soon as possible. He is brand new to [facility] so I had to make a new chart for him. Thank you![facility]12-30-2024 Telephone encounter Note* Telephone Encounter - aHlima Grovermally - 08/10/2024 8:56 AM EST Mu, We received this sleep med referral in [employer]. I even ended up speaking with someone from the office, and it seems they would like him to see someone as soon as possible. He is brand new to [facility] so I had to make a new chart for him. Thank you! [facility] [id number] Miscellaneous Notes* Telephone Encounter - Halima Ford - 08/10/2024 8:56 AM EST Mu, We received this sleep med referral in [employer]. I even ended up speaking with someone from the office, and it seems they would like him to see someone as soon as possible. He is brand new to [facility] so I had to make a new chart for him. Thank you! documented in this [facility]11-25-2024 Evaluation note* Diagnosis Onset Date Resolution Status Admit Date Essential hypertension chronic No vem2023 8:59am Restless leg syndrome chronic Nov ember 2023 8:59am Tachycardia chronic June 8:59am Type 2 diabetes mellitus chronic July 06, 2024 8:59am Essential hypertension chronic Fe bruary 2024 8:39am Restless leg syndrome chronic Feb ru2024 8:39am Sleep apnea chronic September 8:39am Type 2 diabetes mellitus chronic October 05, 2024 8:39am Encounter for pre-employment health screening examination acute Sep ruary 2024 2:20pm [facility] Work Phone: 1(776) 631-647411-27-2023 Progress note Author Pily Guerrero [facility] July 08, 2023 10:40am Note Date/Time July 08, 2023 10:40am [facility] [address] [place] [address] Progress Note - Wound Care 07/08/23 1036 MR#: [id number] Acct: [id number] Name: GIOVANNI JOHNSON Rep #:[id number] : 1975 48 From: Pily zapata FLOOR STEWARD/STEWARDESS FLOOR STEWARD/STEWARDESS-C PCP: Dr. Kayleigh Singleton MD Status:R EG [...] Charges/Coding Visit Charges Office Visits / Consults: 83658 OV L3 Est Physical Exam Const alert, [...] Recorded Date Recorded By Document 06/24/23 09:59 [facility] Desktop 06/24/23 10:02 [facility] Document 07/08/23 09:01 Desktop 07/08/23 09:05 06/24/23 07/08/23 09:59 09:01 - Today's Visit Information Type of service Follow-up Visit Follow-up Visit (Physician/METAL FINISHER (Physician/METAL FINISHER ) ) Arrival Mode Ambulatory Ambulatory Transfer [...] Patient Pain Free? Yes Yes WC - Nurse 1 - General Ulcer Measurement Start: 06/24/23 09:58 Freq: Status: Active Protocol: Activity Type Activity Date Activity User E-sign Co-sign Detail Recorded Client Recorded Date Recorded By Document 06/24/23 09:59 [facility] Desktop 06/24/23 10:02 [facility] Document 07/08/23 09:01 Desktop 07/08/23 09:05 [...] Is Patient Pain Free? Yes Yes - Visit Discharge Discharge Condition Stable Stable [...] 1040 <Electronically signed by Pily Guerrero NP FLOOR STEWARD/STEWARDESS-C> Cosigner Signature (if applicable): CC: ~ Signed [facility] Work Phone: 1(151) 813-902511-18-2023 Progress note Author Pily Guerrero [facility] June 29, 2023 9:54pm Note Date/Time June 24, 2023 11:57am [facility] [address] [place] [address] Progress Note - Wound Care 06/24/23 1157 MR#: [id number] Acct: [id number] Name: GIOVANNI JOHNSON Rep #:[id number] : 1975 48 From: Pily Moses [place] FLOOR STEWARD/STEWARDESS-C PCP: Dr. Kayleigh Singleton MD Status:R EG [...] (BMI) 35.6 Charges/Coding Addendum Addendum: Selective debridement 06740 Debridement Note Debridement Note Wound debrided: Lateral [...] Start: 06/24/23 09:58 Freq: Status: Active Protocol: TAMIKO.LOWEXSony Activity Type Activity Date Activity User E-sign Co-sign Detail Recorded Client Recorded Date Recorded By Document 06/24/23 09:59 [facility] Desktop 06/24/23 10:02 [facility] 06/24/23 09:59 - Today's Visit Information Type of service Follow-up Visit (Physician/METAL FINISHER ) Arrival Mode Ambulatory Transfer Assistance None [...] Recorded Date Recorded By Document 06/24/23 09:59 [facility] Desktop 06/24/23 10:02 [facility] 06/24/23 09:59 Wound Center Nurse 1 [...] develop any concerns. 06/29/232153 <Electronically signed by Pily Guerrero NP FLOOR STEWARD/STEWARDESS-C> Cosigner Signature (if applicable): CC: ~ Signed [facility] Work Phone: 1(703) 469-774210-30-2023 Progress note Author Pily Guerrero [facility] June 10, 2023 1:53pm Note Date/Time June 10, 2023 1 1:38am [facility] [address] [place] [address] Progress Note - Wound Care 06/10/23 1138 MR#: [id number] Acct: [id number] Name: GIOVANNI JOHNSON Rep #:[id number] : 1975 48 From: Pily zapata NP FLOOR STEWARD/STEWARDESS-C PCP: Dr. Kayleigh Singleton MD Status:R EG [...] Index (BMI) 35.6 Charges/Coding Procedures Integumentary 111xxx-113xx: 73532 Rupesh subq tissue 20 sq cm/< Debridement [...] Start: 06/03/23 08:36 Freq: Status: Active Protocol: GUS Activity Type Activity Date Activity User E-sign Co-sign Detail Recorded Client Recorded Date Recorded By Document 06/03/23 08:37 [facility] Desktop 06/03/23 08:50 [facility] Document 06/10/23 09:18 [facility] Desktop 06/10/23 09:26 [facility] 06/03/23 06/10/23 08:37 09:18 - Today's Visit Information Type of service Follow-up Visit Follow-up Visit (Physician/METAL FINISHER (Physician/METAL FINISHER ) ) Arrival Mode Ambulatory Ambulatory Transfer [...] Free? Yes Yes Communication Assessment Preferred language Beninese Clinical Account Specialist Required No Able to Read Yes Able [...] in Ability to Perform Denies Any Declines Culture/Taoism/Leather Lacer Cultural/Taoism Needs that may affect No Treatment Plan [...] Recorded Date Recorded By Document 06/03/23 08:37 [facility] Desktop 06/03/23 08:50 [facility] Document 06/10/23 09:18 [facility] Desktop 06/10/23 09:26 [facility] 06/03/23 06/10/23 [...] Used 5% Lidocaine 5% Lidocaine Gel Gel WC - Nurse 2 - General Ulcer CM Notes Start: 06/03/23 08:36 Freq: Status: Active Protocol: Activity Type Activity Date Activity User E-sign Co-sign Detail Recorded Client Recorded Date Recorded By Document 06/03/23 09:17 Desktop 06/03/23 09:20 Document 06/10/23 09:42 Laptop 06/10/23 [...] Recorded Date Recorded By Document 06/03/23 09:28 [facility] Desktop 06/03/23 09:29 [facility] Document 06/10/23 09:57 [facility] Desktop 06/10/23 09:58 [facility] 06/03/23 06/10/23 09:28 09:57 Wound Care Center Nurse 3 #1- R ELBOW (POST OP) -Ulcer Cleansing Rinsed/ Rinsed/ Irrigated with Irrigated with Saline Saline -Foul Odor after Cleansing No No -Primary Dressing Applied Nugauze, Promogran Iodoform 1/4in Trena Matter -Other Dressing PER DL ELECTRIC MULE OPERATOR -Primary Dressing Covered/Secured with Dry Gauze, Dry [...] town. Call if develop any concerns. 06/10/23 7174 <Electronically signed by Pily Guerrero NP FLOOR STEWARD/STEWARDESS-C> Cosigner Signature (if applicable): CC: ~ Signed [facility] Work Phone: 1(938) 725-425010-23-2023 History and physical note Author Pily Mckeonndell [facility] June 03, 2023 4:59pm Note Date/Time June 03, 2023 1 1:13am [facility] [address] [place] [id number] H&P Exam - Wound Care 06/03/23 1112 MR#: [id number] Acct: [id number] Name: GIOVANNI JOHNSON Rep #:[id number] : 1975 48 From: Pily Moses FLOOR STEWARD/STEWARDESS FLOOR STEWARD/STEWARDESS-C PCP: Dr. Kayleigh Singleton MD Status:R EG [...] WBC,+4 RBC, and +1 Gram positive cocci. [facility] Medical History (Reviewed 06/03/23 @ 15:51 by Pily Guerrero FLOOR STEWARD/STEWARDESS, FLOOR STEWARD/STEWARDESS-C) Arrhythmia Back pain BiPAP (biphasic positive airway [...] Severe Emesis Verified 06/03/23 10:05 Family History (Reviewed 06/03/23 @ 15:52 by Pily Guerrero FLOOR STEWARD/STEWARDESS, FLOOR STEWARD/STEWARDESS-C) Mother Hypertension Grandfather Heart disease Myocardial infarction, Onset Age: 62 Grandmother Hypertension Heart disease Father Liver failure Surgical History (Reviewed 06/03/23 @ 15:52 by Pily Guerrero FLOOR STEWARD/STEWARDESS, FLOOR STEWARD/STEWARDESS-C) History of hernia repair History of sinus surgery Hx of colonoscopy Hx of elbow surgery Social History (Reviewed 06/03/23 @ 15:52 by Pily Guerrero FLOOR STEWARD/STEWARDESS, FLOOR STEWARD/STEWARDESS-C) Smoking Status: Never smoker alcohol intake: current [...] Start: 06/03/23 08:36 Freq: Status: Active Protocol: TAMIKO.LOWEXSony Activity Type Activity Date Activity User E-sign Co-sign Detail Recorded Client Recorded Date Recorded By Document 06/03/23 08:37 [facility] Desktop 06/03/23 08:50 [facility] 06/03/23 08:37 - Today's Visit Information Type of service Follow-up Visit (Physician/METAL FINISHER ) Arrival Mode Ambulatory Transfer Assistance None [...] Pain Free? Yes Communication Assessment Preferred language Beninese Clinical Account Specialist Required No Able to Read Yes Able [...] in Ability to Perform Denies Any Declines Culture/Taoism/Leather Lacer Cultural/Taoism Needs that may affect No Treatment Plan [...] Recorded Date Recorded By Document 06/03/23 08:37 [facility] Desktop 06/03/23 08:50 [facility] 06/03/23 08:37 Wound Center Nurse 1 [...] Recorded Date Recorded By Document 06/03/23 09:28 [facility] Desktop 06/03/23 09:29 [facility] 06/03/23 09:28 Wound Care Center Nurse 3 #1- R ELBOW (POST OP) -Ulcer Cleansing Rinsed/ Irrigated with Saline -Foul Odor after Cleansing No -Primary Dressing Applied Nugauze, Iodoform 1/4in -Other Dressing PER DL ELECTRIC MULE OPERATOR -Primary Dressing Covered/Secured with Dry Gauze, Secured with Tape -Nugauze, Iodoform 1/4in 1 Right -Compression Wrap Cat Wrap -Other CAT TO SECURE Treatment Response Procedure Tolerated Well Pain Scale: 0-10 Numeric Is Patient Pain Free? Yes WC - Visit Discharge Discharge Condition Stable Ambulatory Status Ambulatory Transportation Private Auto Accompanied by Charges/Coding Visit Charges Office Visits / Consults: 72204 OV L3 Est (25 modifier) Procedures Integumentary 111xxx-113xx: 65931 Rupesh subq tissue 20 sq cm/< Assessment/Plan [...] week. Call if develop any concerns. 06/03/23 332 <Electronically signed by Pily Guerrero NP FLOOR STEWARD/STEWARDESS-C> Cosigner Signature (if applicable): CC: ~ Signed [facility] Work Phone: 1(453) 998-476008-23-2023 Hospital Discharge instructions Patient Education 04/03/2023 14:45:42 [...] care provider or pharmacist before using an kefw-ayi-ikekxfs cough medicine. You may use acetaminophen or [...] as directed by your health care provider [phone] [employer] [address] [place] [address]. All rights reserved. This information is not intended as a substitute for professional medical care. Always follow yourhealthcare professional's instructions. Follow Up Care 04/03/2023 13:15:13 With:KAYLEIGH SINGLETON MD Address: [address] [place] [phone] When:2-4 days [facility] 08-23-2023 Note Discharge Instructions Thank you for allowing [facility] to assist you with your healthcare needs. [...] SINGLETON MD When Within 2-4 days Where: [place] [address]- [phone] Allergies colchicine doxycycline Medications Please ask your primary doctor or pharmacist before taking any other medication not listed, including over the counter drugs, herbal medications, vitamins and or supplements as they may interact withyour home medications. What How Much When Why Instructions Last Dose New acetaminophen-hydrocodone ([place] 325- 5 mg oral tablet) 1 tab(s) [...] care provider or pharmacist before using an ddam-hwx-mhsguwx cough medicine. You may use acetaminophen or [...] as directed by your health care provider [phone] [employer] [address] [place] [address]. All rights reserved. This information is not intended as a substitute for professional medical care. Always follow yourhealthcare professional's instructions. Additional Information VACCINATE! IT SAVES LIVES! Members of the community who have not yet received the COVID-19 vaccine and would like to receive it can visit one of [facility] vaccine clinics. There are many vaccine clinic locations within the [facility]. For locations and available times, please visit www.gettheshot.coronavirus.[place].gov/. It is important to note that some COVID mobile vaccine clinics are held outdoors and may be canceled in rainy or stormy conditions. To learn more about pediatric vaccinations (ages 5-11), we invite you to visit the [facility] webpage. [email or web address]://[email or web address]/pages/[email or web address]-Sulrs-Rtxqclvwcua-Iotoajbqgx-Dvbzw-Yuh stions.htmlTo learn more about the COVID-19 vaccine, we invite you to visit the CDC website for a list of frequently asked questions. https://www.cdc.gov/coronavirus/2019-ncov/vaccines/faq.html [facility] Patient Portal Access Instructions: Stay connected with your healthcare team and access your personal medical information anytime with the [employer] ([facility]) Patient Portal. If you would like a full copy of your medical records please contact the [facility] Medical Records Department Saturday through Saturday between 8a.m. and 4:30p.m. Please follow the directions below to access the portal: 1.Access the email account you provided upon registration to the [facility].2.Look for an invitation email from [facility].3.Open the email and access the invitation link: Accept Invitation to [facility]4.Fill in the required navas to create your account. Sign into [email or web address] with your username and password that you [...] you will allow to register on the [facility] [employer] ([facility]) Patient Portal for access to your information. You can also access the [facility] [employer] ([facility] Patient Portal on the [employer] amira. Simply click on Health Records under [employer] and then click on the [employer] logo. HOW TO SAFELY DISPOSE OF PRESCRIPTION [...] Call your local pharmacy or go to http://bit.ly/8A0Rt5j to find one close to you.3.Make use of household items: Use cat litter or old coffee grounds to dispose medications if other options arenot available. Mix your drugs with these household products, seal them in an airtight container andthrow it into the garbage. Call [facility]: [phone] to be sure your drugs can be [...] been reviewed and explained to me and I,GIOVANNI JOHNSON understand my current condition and have read and understand these discharge instructions. I have received a written copy of the plan/instructions. If I have questions, I am aware that I should contact my doctor. 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: Date/Time: Relationship to Patient: Witness Name/Signature: Date/Time: [facility]08-23-2023 Note ORIGINAL EXAMINATION: 2 XRAY VIEWS OF [...] Date: 04/03/2023 2:25:02 PM [facility] Discharge summary Author Darlene Henderson [facility] February 04, 2023 4:56pm Note Date/Time February 04, 2023 4:56 pm [facility] Occupational Therapy [facility] [address] [place] [address] [address] [place] [address] / REHABILITATION SERVICES DISCHARGE SUMMARY MR#: [id number] Acct: [id number] Name: GIOVANNI JOHNSON Rep #: [id number] : 1975 47 From: Darlene WILSON/Katie, CHT Referring Dr.: Dr. Seymour Erickson MD Status: REG RCR Eval Date: Discharge Date: It has been my pleasure to treat GIOVANNI JOHNSON under orders from Dr. Seymour Erickson MD, for the diagnosis of right lateral epicondylitis for a totalof 6 visit(s). Please see the following information for a summary of their discharge status. % Improvement: 70 Objective/Function: right fingerprint classifier strength 120# (pt has had right fingerprint classifier strength at 140#) left is 145#. right lateral pinch 22#, L-22#. right tripod pinch 16#, L- 16#. wrist resistive extension tested with FEt2 peak force in pounds right wrist ext. 18.7# left 20#. pt states he is IND with all ADLs and IADLs. 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 Thank you for the referral of this patient. Sincerely, Darlene Henderson, OTR/L, CHT <Electronically signed by Darlene Henderson OTR/Katie, CHT> 02/04/23 5777 CC: Dr. Kayleigh Singleton MD; Dr. Seymour Erickson MD ~ MK Signed [facility] Work Phone: 1(853) 942-352112-06-2022 Influenza virus A and B RNA and SARS-CoV-2 (COVID-19) N gene panel DANGELO+probe (Resp)COVID 19 RESULT: SARS-CoV-2 (Agent of COVID-19) Not Detected by RT-PCR or equivalent method. logan XXHO-CcI-9_Yfrbq [employer] (MILLER)_EUA This test was developed and its performance characteristics determined by [facility]. This test has been authorized by FDA under an Emergency Use Authorization (EUA). This test has been validated in accordance with the FDA's Guidance Document Policy for DiagnosticsTesting in Laboratories Certified to Perform High Complexity Testing under CLIA prior to Emergency use Authorization for Coronavirus Disease 2019 during the Public Health Emergency issued on October 10, 2019. Test performed by [facility], [facility], [address] [place] [address]. INFLUENZA A PCR: Negative for Influenza A by RT-PCR INFLUENZA B PCR: Negative for Influenza B by RT-PCRMercy Health Fairfield HospitalComment on above: Performed By: #### [id number] #### [facility] CLIA [id number] [address] [place] [address] STATES OF [id number] NoteHNO ID: [id number] Author: Anya Mancera APRN.METAL FINISHER Service: ? Author Type: Nurse Practitioner Type: Progress Notes Filed: 07/17/2022 10:45 AM Note Text: Subjective The history is provided by the patient. No education trainer was used. HPI Giovanni Johnson is a [...] have confirmed and edited as necessary, the [facility] Review of Systems Constitutional: Positive for [...] in 12-24 hours with results, available on mychart - COVID WITH FLUA+B, ROUTINE Diagnosis and treatment plan were discussed and questions were answered to the patient's satisfaction. Pt acknowledged understanding of concepts and follow up plan. Specific signs and symptoms that would indicate the need for higher level of care were discussed in detail warranting prompt ER evaluation. Anya Mancera APRN.CNPMercy Health Fairfield Hospital12-06-2022 Instructions* Patient Instructions* Anya Mancera APRN.CNP [...] breath, inability to swallow. [facility] History of Present illness Narrative* Anya Mancera APRN.CNP - 07/17/2022 10:13 AM EST Subjective The history is provided by the patient. No education trainer was used. HPI Giovanni Johnson is a [...] have confirmed and edited as necessary, the [facility] Review of Systems Constitutional: Positive for [...] in 12-24 hours with results, available on General [employer] - COVID WITH FLUA+B, ROUTINE Diagnosis and treatment plan were discussed and questions were answered to the patient's satisfaction. Pt acknowledged understanding of concepts and follow up plan. Specific signs and symptoms that would indicate the need for higher level of care were discussed indetail warranting prompt ER evaluation. Anya Mancera APRN.KE documented in this encounterMary[facility] Hospital10-24-2022 NoteHNO ID: [id number] Author: RT Silvia(R) Service: ? Author Type: [...] BY: RT Silvia(R) June 04, 2022 9:56 [facility]10-24-2022 History of Present illness Narrative* Sony [...] IV DATA: Not applicable SIGNED BY: RT Silvia(Simin) June 04, 2022 9:56 AM documented in this encounterMarymount Hospital10-23-2022 NoteHNO ID: [id number] Author: Lillian Bermudez APRN.METAL FINISHER Service: ? Author Type: Nurse Practitioner Type: [...] Patient agreeable to treatment plan. Lillian Bermudez APRN.KEMercy Health Fairfield Hospital10-23-2022 History of Present illness Narrative* Lillian Bermudez APRN.METAL FINISHER - 06/03/2022 9:09 AM EDT CC: Patient [...] plan. Lillian Bermudez APRN.CNP documented in this encounterProtest[facility] Hospitalaluation + Plan note No data available for this section [facility] Evaluation note* Diagnosis Onset Date Resolution Status Health care maintenance acut e Borderline type 2 diabetes mellitus chronic Essential hypertension chron ic Restless leg syndrome chroni c Tachycardia chronic Colon cancer screening acute [facility] Work Phone: Evaluation note* Diagnosis Onset Date Resolution Status Health care maintenance acut e Borderline type 2 diabetes mellitus chronic Essential hypertension chron ic Restless leg syndrome chroni c Tachycardia chronic Colon cancer screening acute Strain of right elbow acute Right lateral epicondylitis acute Strain of right biceps acute [facility] Work Phone: Evaluation note* Diagnosis Onset Date Resolution Status Colon cancer screening acute Strain of right elbow acute Right lateral epicondylitis acute Strain of right biceps acute Strain of right biceps acute Strain of right elbow acute Right lateral epicondylitis acute Strain of right biceps acute [facility] Work Phone: Evaluation note* Diagnosis Acute cough- Primary [facility] Diagnosis Onset Date Resolution Status Colon [...] lateral epicondylitis acute Pruritic dermatitis noneacti ve [facility] Work Phone: Evaluation note* Diagnosis Sore throat- Primary Acute pharyngitis URI with cough and congestion [facility]* Diagnosis Onset Date Resolution Status [...] lateral epicondylitis acute Pruritic dermatitis noneacti ve [facility] Work Phone: Evaluation note* Diagnosis Onset Date Resolution Status Preoperative cardiovascular examination acute Essential hypertension chron ic Mixed hyperlipidemia chronic Tachycardia chronic Right lateral epicondylitis acute Right lateral epicondylitis acute Right lateral epicondylitis acute Right lateral epicondylitis acute Right lateral epicondylitis acute Right lateral epicondylitis acute Right lateral epicondylitis acute Seroma after procedure acute [facility] Work Phone: Evaluation note* Diagnosis Onset [...] after procedure acute Right lateral epicondylitis acute [facility] Work Phone: Evaluation note* Diagnosis Onset [...] lateral epicondylitis acute Right lateral epicondylitis acute [facility] Work Phone: Evaluation note* Diagnosis Onset [...] c Type 2 diabetes mellitus chr onic [facility] Work Phone: Evaluation note* Diagnosis Onset [...] right thumb acute Right lateral epicondylitis acute [facility] Work Phone: Evaluation note* Diagnosis Onset [...] right elbow acute Post-operative infection acu te [facility] Work Phone: Evaluation note* Diagnosis Onset [...] right elbow acute Post-operative infection acu te [facility] Work Phone: Evaluation note* Diagnosis Onset [...] wound healing acute Right lateral epicondylitis acute [facility] Work Phone: Evaluation note* Diagnosis Onset [...] right elbow acute Post-operative infection acu te [facility] Work Phone: Evaluation note* Diagnosis Onset [...] chronic Type 2 diabetes mellitus chr onic [facility] Work Phone: Evaluation note* Diagnosis Acute cough [facility] Diagnosis RLS (restless legs syndrome)- Primary Restless legs syndrome (RLS) PO (obstructive sleep apnea) Obstructive sleep apnea (adult) (pediatric) Class 2 obesity in adult, unspecified BMI, unspecified obesity type, unspecified whether serious comorbidity present [facility]* Diagnosis RLS (restless legs syndrome)- Primary Restless legs syndrome (RLS) PO (obstructive sleep apnea) Obstructive sleep apnea (adult) (pediatric) Class 2 obesity in adult, unspecified BMI, unspecified obesity type, unspecified whether serious comorbidity present [facility]* Diagnosis RLS (restless legs syndrome) Restless legs syndrome (RLS) [facility]* Diagnosis RLS (restless legs syndrome)- Primary Restless legs syndrome (RLS) PO (obstructive sleep apnea) Obstructive sleep apnea (adult) (pediatric) Vitamin D deficiency documented in this encounter [facility] note* Diagnosis Vitamin D deficiency documented in this encounter [facility] note* Diagnosis RLS (restless legs syndrome)- Primary Restless legs syndrome (RLS) PO (obstructive sleep apnea) Obstructive sleep apnea (adult) (pediatric) Vitamin D deficiency documented in this encounter [facility] note* Diagnosis RLS (restless legs syndrome) Restless legs syndrome (RLS) documented in this encounter [facility] note* Diagnosis RLS (restless legs syndrome) Restless legs syndrome (RLS) [facility]: Hospital Discharge instructionsAmbulatory Orders* Orthopedics Location: None [facility] Work Phone: Hospital Discharge instructionsAmbulatory Orders* PT Referral Location: None [facility] Work Phone: Reason for referral (narrative)No reason for referral information availableWSt. [facility] Work Phone: Summary Purpose Family History No Family History Records Found Relationship Condition Age at Onset Recorded Date/T siri mother Hypertension Unknown grandfather Cardiac disease Unknown Myocardial infarction 62 grandmother Hypertension Unknown Cardiac disease Unknown father Liver failure Unknown Advance Directives No Advanced Directives Records Found Advance Directive Response Recorded Date/ Time Living Will No March 22 2 8:25am Power of Gunner'S Mate No March 22 8:25am Advance Directive Response Recorded Date/ Time Living Will No March 27 11:26am Power of Gunner'S Mate No March 27 11:26am Advance Directive Response Recorded Date/ Time Living Will No March 27 10:26am Power of Gunner'S Mate No March 27 10:26am Advance Directive Response Recorded Date/ Time Living Will No November 22, 2022 3:58pm Power of Gunner'S Mate No November 22 3:58pm Advance Directive Response Recorded Date/ Time Living Will No April 24, 2023 9:07am Power of Gunner'S Mate No April 9:07am Advance Directive Response Recorded Date/ Time Living Will No June 10 2:15pm Power of Gunner'S Mate No June 10, 2023 2:15pm Advance Directive Response Recorded Date/ Time Living Will No June 24, 023 11:30am Power of Gunner'S Mate No June 24, 2023 11:30am Advance Directive Response Recorded Date/ Time Living Will No August 13 1:21pm Power of Gunner'S Mate No August 13 024 1:21pm Advance Directive Response Recorded Date/ Time Living Will No December 16, 2023 9: 39am Power of Gunner'S Mate No December 16, 2023 9:39am Advance Directive Response Recorded Date/ Time Living Will No December 16, 2023 10 :39am Do you have a Healthcare Power of Gunner'S Mate? No December 16, 2023 10:39am Chief Complaint and Reason for Visit Chief Complaint annual exam Amb Documentation [facility] Borderline type 2 diabetes mellitus Essential hypertension Restless leg syndrome Tachycardia Colon cancer screening Chief Complaint annual exam Amb Documentation EORDER- RIGHT- elbow pain R ELBOW PAIN/INJURY/JAKE ALEX CONSTR OBWC/BICEP INJURY/JAKE ALEX CONS Reason for Visit Health care blaise yanez Borderline type 2 diabetes mellitus Essential hypertension [...] R ELBOW PAIN/INJURY/JAKE ALEX CONSTR OBWC/BICEP INJURY/JAKE [place] CONS Right elbow RIGHT ELBOW INJURY RIGHT [...] LEFT ELBOW LEFT ELBOW R ELBOW DR TO [place] Reason for Visit Partial tear of comm [...] LEFT ELBOW LEFT ELBOW R ELBOW DR TO [place] LEFT ELBOW acute - persistant cough/sore throat/sinuses [...] 05, 2024 8:39am [facility] NON DOT [facility]YS[facility]/ [facility] October 09, 2024 2:20pm Reason for Visit [...] 05, 2024 8:39am PE NON DOT PHYSICAL/ [facility] October 09, 2024 2:20pm 3 m fu [...] 05, 2024 8:39am PE NON DOT PHYSICAL/ [facility] October 09, 2024 2:20pm 3 m fu January 08, 2025 1:25p m FATTY LIVER January 22, 2025 1:58 pm Chief Complaint Admit Date PE NON DOT PHYSICAL/ [facility] October 09, 2024 2:20pm 3 m fu January 08, 2025 1:25p m FATTY LIVER January 22, 2025 1:58 pm ELEVATED LIVER ENZYMES January 27, 2025 7 :23am E ORDER February 03, 2025 7:15 am Reason for Visit Admit Date Encounter for pre-employment health scre ening examination October 09, 2024 2:20pm Essential hypertension January 08, 2025 1: 25pm Gastroesophageal reflux disease December 1:25pm Leg cramps January 08, 2025 1:25p m Restless leg syndrome January 08, 2025 1:2 5pm Type 2 diabetes mellitus January 08, 2025 1:25pm Drug-induced liver injury January 22 1:58pm Dyslipidemia January 22, 2025 1:58 pm Abnormal LFTs (liver function tests) Jan 1:58pm Metabolic dysfunction-associated steatoh epatitis (MASH) January 22, 2025 1:58pm Chief Complaint Admit Date 3 m fu January 08, 2025 1:25p m FATTY LIVER January 22, 2025 1:58 pm ELEVATED LIVER ENZYMES January 27, 2025 7 :23am E ORDER February 03, 2025 7:15 am Reason for Visit Admit Date Essential hypertension January 08, 2025 1: 25pm Gastroesophageal reflux disease December 1:25pm Leg cramps January 08, 2025 1:25p m Restless leg syndrome January 08, 2025 1:2 5pm Type 2 diabetes mellitus January 08, 2025 1:25pm Drug-induced liver injury January 22 1:58pm Dyslipidemia January 22, 2025 1:58 pm Abnormal LFTs (liver function tests) Jan 1:58pm Metabolic dysfunction-associated steatoh epatitis (MASH) January 22, 2025 1:58pm Chief Complaint Admit Date 3 m fu January 08, 2025 1:25p m FATTY LIVER January 22, 2025 1:58 pm ELEVATED LIVER ENZYMES January 27, 2025 7 :23am E ORDER February 03, 2025 7:15 am 1 Y FU February 16, 2025 8:55a m Reason for Visit Admit Date Essential hypertension January 08, 2025 1: 25pm Gastroesophageal reflux disease December 1:25pm Leg cramps May 30th, 2025 1:25p m Restless leg syndrome January 08, 2025 1:2 5pm Type 2 diabetes mellitus January 08, 2025 1:25pm Drug-induced liver injury January 22 1:58pm Dyslipidemia January 22, 2025 1:58 pm Abnormal LFTs (liver function tests) Eddy e 2024 1:58pm Metabolic dysfunction-associated steatoh epatitis (MASH) January 22, 2025 1:58pm Essential hypertension February 16, 2025 8: 55am Mixed hyperlipidemia February 16, 2025 8:55 am Tachycardia February 16, 2025 8:55a m Chief Complaint Admit Date 3 m fu January 08, 2025 1:25p m FATTY LIVER January 22, 2025 1:58 pm ELEVATED LIVER ENZYMES January 27, 2025 7 :23am E ORDER February 03, 2025 7:15 am 1 Y FU February 16, 2025 8:55a m 3 M FU April 15, 2025 1:24pm Health Concerns Infection Onset Date Last Indicated Resolved Time COVID-19 Rule-Out 07/17/2022 07/17/2022 Additional Source Comments (unrecognized sect ion and content) No Status Records FoundNo Status Records FoundNo Status Records FoundNo Status Records FoundNo Status Records FoundNo Status Records Found INFORMATION SOURCE (unrecogn ized section and content) DATE CREATED AUTHOR 01/29/2018 [facility] DATE CREATED AUTHOR AUTHOR'S ORGANIZ ATION 02/05/2018 [facility] DATE CREATED AUTHOR AUTHOR'S ORGANIZ ATION 07/18/2022 [facility] DATE CREATED AUTHOR AUTHOR'S ORGANIZ ATION 04/11/2023 [facility] ([place]) DATE CREATED AUTHOR AUTHOR'S ORGANIZ ATION 04/07/[address] [facility] DATE CREATED AUTHOR AUTHOR'S ORGANIZ ATION [facility]20/[address] [facility] Source Comments (unrecognize d section and content) In the event this informatio n is protected by the Federal Confidentiality of Alcohol and Drug Abuse Patient Records regulations: The Federal rules restrict any use of the information to criminally investigate or prosecute any alcohol or drug abuse patient.[facility] the event this information is protected by the Federal Confidentiality of Alcohol and Drug Abuse Patient Records regulations: The Federal rules restrict any use of the information to criminally investigate or prosecute any alcohol or drug abuse patient.[facility] Hospital[facility] the event this information is protected by the Federal Confidentiality of Alcohol and Drug Abuse Patient Records regulations: The Federal rules restrict any use of the information to criminally investigate or prosecute any alcohol or drug abuse patient.[facility] Reason for Visit (unrecogniz ed section and content) Reason Comments Cough Nasal congestion x10 days Reason Comments Cough Cough, ST and conges tion x 1 day Reason Onset Date Comments Other 08/10/2024 Sleep Med Referr al Reason Comments New Patient Restless Legs Specialty Diagnoses / Procedures Referred By Chuck t Referred To Contact Sleep Medicine Diagnoses Restless legs syndrome Procedures [place] OFFICE/OUTPATIENT NEW MODERATE MDM 45 MINUTES Kayleigh Singleton [address] [place] [address] Phone: tel: fax: [facility] Sleep Medicine - [address] [place] [address] Phone: tel: fax:[phone] Referral ID Status Reason Start Date Expiration Date Visits Re quested Visits Authorized [id number] Closed 08/10/2024 08/10/2025 1 1 Reason Comments Follow-up Medication change Reason Onset Date Comments Med Refill 11/30/2024 Reason Onset Date Comments Cpap 11/27/2024 Reason Onset Date Comments Appointment 11/09/2024 Reason Comments Follow-up 6 week follow up amira t, new mask is not working well, however, pressures are working very well. Reason Comments Med Refill Reason Comments Follow-up RLS Reason Onset Date Comments Med Refill 03/01/2025 Reason Onset Date Comments Discuss Medications 03/03/2025 Reason Onset Date Comments Med Refill 03/22/2025 Care Teams (unrecognized sec tion and content) Claim Processing Specialist Relationship Specialty Start Date End Date Kayleigh Singleton MD [address] [place], [place] [phone] PCP - General Internal Medicine 06/03/22 Claim Processing Specialist Relationship Specialty Start Date End Date Kayleigh Singleton MD [address] [place], [place] [phone] PCP - General Internal Medicine 06/03/22 Team [...] MD Primary Care Provider Active Pily Guerrero FLOOR STEWARD/STEWARDESS, FLOOR STEWARD/STEWARDESS-C Attending Provider, Other P rovider Active Seymour Erickson MD Referring Provider Active Team Status: Active Member Role Status Dates Dr. Kayleigh Singleton MD Primary Care Provider Active Pily Guerrero FLOOR STEWARD/STEWARDESS, FLOOR STEWARD/STEWARDESS-C Attending Provider Active Seymour Erickson MD Referring Provider Active Team Status: Inactive Member Role Status Dates Dr. Kayleigh Singleton MD Primary Care Provider Active Pily Guerrero FLOOR STEWARD/STEWARDESS, FLOOR STEWARD/STEWARDESS-C Attending Provider Active Seymour Erickson MD Referring Provider Active Team Status: Active Member Role Status Dates Dr. Kayleigh Singleton MD Primary Care Provider Active Pily Guerrero FLOOR STEWARD/STEWARDESS, FLOOR STEWARD/STEWARDESS-C Attending Pro vider, Referring Provider, Other Provider [...] Care Provider, Refer ring Provider Active Evie Beltarn NP-C Attending Provider Active Claim Processing Specialist Relationship Specialty Start Date End Date Kayleigh Singleton MD [address] [address] PCP - General Internal Medicine 06/03/22 Claim Processing Specialist Relationship Specialty Start Date End Date Kayleigh Singleton [address] [place] [address] PCP - General Internal Medicine 08/10/24 Claim Processing Specialist Relationship Specialty Start Date End Date Kayleigh Singleton [address] [place] [address] PCP - General Internal Medicine 08/10/24 Claim Processing Specialist Relationship Specialty Start Date End Date Kayleigh Singleton [address] [place] [phone] PCP - General Internal Medicine 08/10/24 Team [...] 2024 End: October 09, 2024 Dr. Kayleigh Singleton MD Referring Provider Active Start: October 09, 2024 End: October 09, 2024 Jonathan EVANS PA Attending Provider Active Sta rt: October 09, 2024 End: October 09, 2024 Claim Processing Specialist Relationship Specialty Start Date End Date Kayleigh Singleton [address] [place] [address] PCP - General Internal Medicine 08/10/24 Claim Processing Specialist Relationship Specialty Start Date End Date Kayleigh Singleton [address] [place] [address] PCP - General Internal Medicine 08/10/24 Claim Processing Specialist Relationship Specialty Start Date End Date Kayleigh Singleton [address] [place] [address] PCP - General Internal Medicine 08/10/24 Claim Processing Specialist Relationship Specialty Start Date End Date Kayleigh Singleton [address] [place] [address] PCP - General Internal Medicine 08/10/24 Claim Processing Specialist Relationship Specialty Start Date End Date Kayleigh Singleton [address] [place] [address] PCP - General Internal Medicine 08/10/24 Team [...] January 22, 2025 End: January 22, 2025 Team Status: Inactive Member Role Status Dates Dr. Kayleigh Singleton MD Primary Care Provider Active Start: January 27, 2025 End: January 27, 2025 Dr. Kayleigh Singleton MD Attending Provider Active Start: January 27, 2025 End: January 27, 2025 Dr. Kayleigh Singleton MD Referring Provider Active Start: January 27, 2025 End: January 27, 2025 Dr. Elliot Trevino MD Other Provider Active Sta rt: January 27, 2025 End: January 27, 2025 Team Status: Active Member Role Status Dates Dr. Kayleigh Singleton MD Primary Care Provider Active Start: February 03, 2025 Dr. Elliot Trevino MD Attending Provider Active Start: February 03, 2025 Dr. Elliot Trevino MD Referring Provider Active Start: February 03, 2025 Team Status: Active Member Role/Relationship Status Dates Dr. Kayleigh Singleton MD Primary Care Provider Active Team Status: Inactive Member Role/Relationship Status Dates Dr. Kayleigh Singleton MD Primary Care Provider Active Start: January 08, 2025 End: January 08, 2025 Dr. Kayleigh Singleton MD Attending Provider Active Start: January 08, 2025 End: January 08, 2025 Dr. Kayleigh Singleton MD Referring Provider Active Start: January 08, 2025 End: January 08, 2025 Team Status: Inactive Member Role/Relationship Status Dates Dr. Kayleigh Singleton MD Primary Care Provider Active Start: January 08, 2025 End: January 08, 2025 Dr. Kayleigh Singleton MD Attending Provider Active Start: January 08, 2025 End: January 08, 2025 Dr. Kayleigh Singleton MD Referring Provider Active Start: January 08, 2025 End: January 08, 2025 Team Status: Inactive Member Role/Relationship Status Dates Dr. Kayleigh Singleton MD Primary Care Provider Active Start: January 22, 2025 End: January 22, 2025 Dr. Kayleigh Singleton MD Referring Provider Active Start: January 22, 2025 End: January 22, 2025 Dr. Elliot Trevino MD Attending Provider Active Start: January 22, 2025 End: January 22, 2025 Team Status: Inactive Member Role/Relationship Status Dates Dr. Kayleigh Singleton MD Primary Care Provider Active Start: January 27, 2025 End: January 27, 2025 Dr. Kayleigh Singleton MD Attending Provider Active Start: January 27, 2025 End: January 27, 2025 Dr. Kayleigh Singleton MD Referring Provider Active Start: January 27, 2025 End: January 27, 2025 Dr. Elliot Trevino MD Other Provider Active Sta rt: January 27, 2025 End: January 27, 2025 Team Status: Inactive Member Role/Relationship Status Dates Dr. Kayleigh Singleton MD Primary Care Provider Active Start: February 03, 2025 End: February 03, 2025 Dr. Elliot Trevino MD Attending Provider Active Start: February 03, 2025 End: February 03, 2025 Dr. Elliot Trevino MD Referring Provider Active Start: February 03, 2025 End: February 03, 2025 Claim Processing Specialist Relationship Specialty Start Date End Date Kayleigh Singleton [address] [facility] [address] [place] [phone] PCP - General Internal Medicine 08/10/24 Team Status: Inactive Member Role/Relationship Status Dates Dr. Kayleigh Singleton MD Primary Care Provider Active Start: February 16, 2025 End: February 16, 2025 Dr. Kayleigh Singleton MD Referring Provider Active Start: February 16, 2025 End: February 16, 2025 Iwona Worrell FLOOR STEWARD/STEWARDESS, FLOOR STEWARD/STEWARDESS-C Attending Provider Active Start: February 16, 2025 End: February 16, 2025 Claim Processing Specialist Relationship Specialty Start Date End Date JeanaleishaKayleigh aguiar [address] [place] [address] PCP - General Internal Medicine 08/10/24 Claim Processing Specialist Relationship Specialty Start Date End Date AreliKayleigh [address] [place] [address] PCP - General Internal Medicine 08/10/24 Team Status: Inactive Member Role/Relationship Status Dates NILSA LLAMAS Attending Provider Active Start: Jonathan galvan 2024 End: March 01, 2025 Dr. Kayleigh Singleton MD Primary Care Provider Active Start: March 01, 2025 End: March 01, 2025 Claim Processing Specialist Relationship Specialty Start Date End Date JeanaleishaKayleigh aguiar [address] [place] [address] PCP - General Internal Medicine 08/10/24 Claim Processing Specialist Relationship Specialty Start Date End Date JeanaleishaKayleigh aguiar [address] [place] [address] PCP - General Internal Medicine 08/10/24 Team Status: Inactive Member Role/Relationship Status Dates Dr. Kayleigh Singleton MD Primary Care Provider Active Start: April 15, 2025 End: April 15, 2025 Dr. Kayleigh Singleton MD Attending Provider Active Start: April 15, 2025 End: April 15, 2025 Dr. Kayleigh Singleton MD Referring Provider Active Start: April 15, 2025 End: April 15, 2025 Goals (unrecognized section and content) Goals [...] BE BASED ON THE PRIMARY CLINICAL RECORDS. [facility] [employer] [facility]. provides no warranty or guarantee of the accuracy or completeness of information in this document.
--- NOTE | 2025-04-20 07:28 | US_ITS ---
PROCEDURE: ABD LIMITED W/ ELASTOGRAPHY REASON FOR EXAM: ELEVATED LFT COMPARISON: Prior study dated January 27, 2025. TECHNIQUE: Procedure Code: [id number] Modality: US Procedure: ABD LIMITED W/ ELASTOGRAPHY Right upper quadrant abdominal ultrasound. [employer] ElastQ Imaging shear wave elastography for non-invasive assessment of liver tissue stiffness. [employer] EPIQ Elite. FINDINGS: LIVER: Size: Enlarged (hepatomegaly) Length: 20.2 cm Echotexture: Diffusely echogenic suggesting fatty infiltration Contour: Normal Lesions: None identified Elastography: EQI Med: 6.5 kPa EQI Med Bird: 1.46 m/s IQR/Med: 23 %* GALLBLADDER: Small amount of sludge is seen within the gallbladder lumen. COMMON BILE DUCT: Normal measuring 4 mm. . PANCREAS: Obscured by bowel gas. Visualized portions of the right kidney are unremarkable. No right upper quadrant ascites. US/ABD Limited w/ Elastography IMPRESSION: Mild hepatic fibrosis. Hepatomegaly. Diffuse fatty infiltration of the liver. Sludge in the gallbladder lumen. Reference Values: SRU <1.37 m/s (5.7kPa): No to mild fibrosis 1.37 m/s - 2.2 m/s: Moderate to severe fibrosis >2.2 m/s (15kPa): Significant fibrosis / cirrhosis METAVIR Score F2 or higher: 1.34 m/s (5.7kPa) F3 or higher: 1.55 m/s (7.3kPa) F4: 1.80 m/s (10kPa) * If the IQR/Med is >30%, the variance in the measurements is a large and the a ccuracy of the measurement may be in question. Reading Location: [id number]
[2025-04-20 08:07] LABS: Hematocrit 45.2 % (40-54); Hemoglobin 15.2 g/dL (13.0-16.5); Immature Granulocytes Count 0.020 X10^3/uL (0.0-0.0); Mean Corp Hgb Conc 33.6 g/dL (32-36); Mean Corpuscular Volume 87.1 fL (80-94); Mean Platelet Vol. 11.1 fl (6.2-12.0); NRBC Flagged by Analyzer 0 % (0-5); Platelet Count 254 K/mm3 (150-450); RBC Distribution Width CV 13.3 % (11.6-14.6); RBC Distribution Width SD 42.6 fl (35.1-43.9); Red Blood Count 5.19 M/mm3 (4.6-6.2); White Blood Count 6.4 K/mm3 (4.4-11.0)
[2025-04-20 08:58] LABS: Prothrombin Time (Protime)PT. 12.9 SECONDS (11.7-14.9)
[2025-04-20 09:09] LABS: AST(SGOT) 57 U/L (<=37); Alanine Aminotransfer ALT/SGPT 119 U/L (<=46); Albumin, Serum 4.0 g/dL (3.5-5.0); Alkaline Phosphatase 95 U/L (40-129); Anion Gap 15 (5-15); BUN 13 mg/dL (4-19); BUN/Creat Ratio 12.2 RATIO (10-20); Calcium,Total 9.4 mg/dL (7.6-11.0); Carbon Dioxide 20.0 mmol/L (21.0-32.0); Chloride 102 mmol/L (98-108); Cholesterol 183 mg/dL (<=200); Ferritin 99 ng/mL (37-417); Globulin 3.3 g/dL (2.2-4.2); Glucose 129 mg/dL (70-99); Low Density Lipoprotein Calc. 113 mg/dL; Potassium 3.8 mmol/L (3.3-5.1); Triglycerides 165 mg/dL; Very Low Density Lipoprotein 33 mg/dL (5-40); cholesterol:hdl ratio screen 4.95
[2025-04-20 09:34] LABS: Creatinine, Urine (random) 150.00 mg/dL (39.00-259.00); Microalbumin,Random Urine 26.3 mg/L (<20 mg/L)
[2025-04-20 11:39] LABS: Uric Acid 5.5 mg/dL (3.5-7.2)
[2025-04-20 19:22] LABS: Iron Binding Capacity,Total 378 ug/dL (250-450)
[2025-04-20 19:23] LABS: CRP < 3.00 mg/L (0.0-3.0); Iron 82 ug/dL (65-175); Iron Binding Capacity,Unsat 296 ug/dL (228-428)
[2025-04-21 16:09] LABS: ANTINUCLEAR ANTIBODIES DIRECT Negative (Negative)
[2025-04-23 15:08] LABS: Anti-Smooth Muscle ABS 11 Units (0-19); Copper, Serum or Plasma 63 ug/dL (69-132); HEPATITIS B SURFACE AG Negative (Negative); Hep C Antibodies Non Reactive (Non Reactive)
== END | disposition home or self-care (01) ==
PROVIDERS: PCP Internal Medicine; Referring Provider Internal Medicine; Visit Provider Internal Medicine
DX: K71.9 Toxic liver disease, unspecified (principal); E11.9 Type 2 diabetes mellitus without complications; E78.5 Hyperlipidemia, unspecified; K75.81 Nonalcoholic steatohepatitis (NASH); R79.89 Other specified abnormal findings of blood chemistry; M10.9 Gout, unspecified
CPT/HCPCS: 36415; 76705; 76981; 80053; 80061; 80074; 82043; 82390; 82525; 82570; 82728; 83516; 83540; 83550; 84443; 84550; 85025; 85610; 86038; 86140; 86225